=== PATIENT | female | born 1965 | race Caucasian/White ===

== ENCOUNTER 2019-03-27 18:30 | Emergency (ER) | payer MEDICARE, MEDICAID, SELFPAY ==
[2019-03-27 18:33] VITALS: BP 200/91; PULSE 68; RESP 18; TEMP 37; O2SAT 98; BMI 32.3
--- NOTE | 2019-03-27 18:43 | XR_ITS ---
WS: [id number] PORTABLE CHEST HISTORY: Chest pain COMPARISON: 05/22/2018 Prior median sternotomy. LEFT subclavian pacer. Lungs are clear and well expanded. No pleural effusion or pneumothorax. Cardiac size: Mildly enlarged cardiac silhouette. Mediastinum/Aorta: Normal mediastinum. No osseous abnormality seen. XR/XR chest 1V portable [id number] IMPRESSION: Prior cardiac pacer and median sternotomy. No pneumonia.
--- NOTE | 2019-03-27 18:45 | ED_ITS ---
Entered by Oanh Ramires, acting as scribe for Mar 27, 2019 18:30 HPI - Chest Pain General: Chief Complaint: Chest Pain Stated Complaint: cp Time Seen by Provider: 03/27/19 18:45 Source: patient and family Mode of arrival: ambulatory Limitations: no limitations History of Present Illness: HPI narrative: 53 yo female presents with chest discomfort, shortness of breath and high blood pressure. pt states this started today while at [employer] the pain is now resloved. pt states worsened with exertion, nothing makes this better. pt has a HX of 7 stents. pt states i just wanted to get checked out. 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) Timing of current episode: constant and now resolved Prior episodes: Yes Onset: during exertion (at [employer]) Pain location: substernal Pain radiation: none Severity: moderate Associated symptoms: Deny abdominal pain, fever(s), nausea or vomiting Risk Factors: Coronary artery disease risk factors: diabetes and hypertension Review of Systems Const: Denies: fever or chills Eyes: Denies: change in vision or blurry vision ENMT: Denies: painful swallowing or dental pain Card: Denies: edema or swelling of feet/ankles Resp: Denies: productive cough, non-productive cough or wheezing GI: Denies: abdominal pain, nausea, vomiting, rectal pain, blood in stool or black tarry stool : Denies: painful urination, urinary frequency, urinary urgency or blood in urine Musc: Denies: neck pain, back pain, redness or joint warmth Skin/Breast: Denies: rash, itching or redness Neuro: Denies: headache, dizziness, vertigo or confusion Psych: Denies: anxiety PFSH ED PFSH: Statuses (acute, chronic, etc) shown below reflect problem list status as previously entered and may not be historically accurate Family History (Updated 03/23/19 @ 10:02 by Nga De Leon LPN) Brother Stroke Diabetes Mother , 72 Diabetes Heart disease Father , 68 Diabetes Heart disease Grandmother Diabetes Grandfather Diabetes Other Cancer Social History Smoking and tobacco status: former smoker Physical Exam Const: GENERAL APPEARANCE: well developed ORIENTATION/CONSCIOUSNESS: Yes oriented to person, Yes oriented to place and Yes oriented to time HENMT: COMMON NORMALS: normocephalic, external ears normal and external nose normal HEAD & SCALP: normocephalic; no scalp tenderness FACE & SINUS: normal facial exam NOSE: external nose normal and no nasal discharge EXTERNAL EAR: Yes external ears normal Eye: COMMON NORMALS: PERRL, EOMs intact bilaterally and conjunctivae normal EYELID: eyelids normal CONJUNCTIVA: Yes conjunctivae normal PUPIL: Yes PERRL Neck/C-Spine: COMMON NORMALS: full ROM GENERAL: No tracheal deviation CERVICAL SPINE: Yes normal cervical lordosis and No cervical spine tenderness Chest: COMMONS NORMALS: inspection of chest normal CHEST: No tenderness Resp: COMMON NORMALS: clear to auscultation bilaterally EFFORT & INSPECTION: No tachypneic, No respiratory distress, No retractions, No uses accessory muscles and No tracheal deviation AUSCULTATION: clear to auscultation bilaterally, no rhonchi, no wheezes and lung sounds not diminished Cardio: COMMON NORMALS: regular rate and regular rhythm RATE: regular rate RHYTHM: regular rhythm HEART SOUNDS: no murmurs PERIPHERAL PULSES: radial pulses present GI: INSPECTION: No abdominal distension AUSCULTATION: No hyperactive bowel sounds and No hypoactive bowel sounds PALPATION: No guarding and No rigid PERCUSSION: no dullness to percussion and no tympanic to percussion Neuro: SENSORIUM/ORIENTATION: Yes oriented to person, Yes oriented to place and Yes oriented to time Psych: COMMON NORMALS: mental status grossly normal Skin: COMMON NORMALS: no rashes or lesions noted GENERAL SKIN EXAM: no rashes or lesions noted Course ED course: 53-year-old female presents with palpitations versus mild chest discomfort today. Is resolved on her arrival. She was quite hypertensive on arrival as well. Her blood pressure has been up today. Blood pressure improved with IV hydralazine and p.o. amlodipine. Her troponin did not change at 2 hours. There are no ST changes on her EKG, although her EKG is pacer driven. With resolution of her pain, without intervention, control of her blood pressure, negative troponins despite her discomfort most of the day, appears safe to send her home despite her history. She would like to go home. She will be given amlodipine for breakthrough hypertension. She knows to follow-up as an outpatient, and actually has an appointment with her PCP tomorrow afternoon. Vital Signs: Vital signs: Vital Signs Temperature 98.6 F 03/27/19 18:33 Pulse Rate 60 03/27/19 21:49 Respiratory Rate 15 03/27/19 21:49 Blood Pressure 153/68 03/27/19 21:49 Pulse Oximetry 97 03/27/19 21:49 MDM - Chest Pain Lab Data: Labs: Lab Results 03/27/19 03/27/19 03/27/19 Range/Units 18:50 18:50 18:50 WBC 5.5 (4.0-10.0) 10^3/ uL RBC 4.09 L (4.1-5.3) 10^6/u L Hgb 9.3 L (11.5-15.3) g/dL Hct 31.8 L (37.0-47.0) % MCV 77.8 L (81-99) fL MCH 22.7 L (28.0-34.0) pg MCHC 29.2 L (30.0-36.0) g/dL RDW 16.9 H (12.1-15.1) % Plt Count 108 L (130-400) 10^3/c mm MPV 12.2 H (7.4-10.4) fL Neut % (Auto) 69.4 % Lymph % (Auto) 19.1 % [facility] % (Auto) 9.7 % Eos % (Auto) 1.1 % Baso % (Auto) 0.5 % Neut # (Auto) 3.8 (1.8-7.7) 10^3/u L Lymph # (Auto) 1.1 (0.8-4.8) 10^3/u L [facility] # (Auto) 0.5 (0.2-0.9) 10^3/u L Eos # (Auto) 0.1 (0.0-0.8) 10^3/u L Baso # (Auto) 0.0 (0.0-0.1) 10^3/u L Nucleated RBC % (a uto) 0 % Nucleated RBCs # 0.0 /100WBC PT 14.20 H (10.5-13.3) SECO NDS INR 1.06 (0.8-1.2) APTT 28.7 (23.9-36.7) SECO NDS Sodium 137 (136-145) mmol/L Potassium 4.1 (3.5-5.1) mmol/L Chloride 98 (98-107) mmol/L Carbon Dioxide 28 (22-29) mmol/L Anion Gap 15.1 (5-19) BUN 16 (6-20) mg/dL Creatinine 1.1 H (0.5-0.9) mg/dL GFR Calculation 51.6 L (90-130) mL/min Glucose 283 H (74-109) mg/dL Calcium 9.1 (8.5-10.5) mg/dL Total Bilirubin 1.0 (0.15-1.2) mg/dL AST 46 H (0-32) U/L ALT 24 (0-33) U/L Alkaline Phosphata se 173 H (35-105) IU/L Troponin T Baselin e (0-10) ng/mL Troponin T 120 Min tetlin (0-10) ng/mL Delta Troponin T (0-10) ABS# NT-Pro-B Natriuret Pep (0-125) pg/mL Total Protein 7.6 (6.6-8.7) g/dL Albumin 3.6 (3.5-5.2) g/dL Globulin 4.0 (1.3-4.6) g/dL 03/27/19 03/27/19 03/27/19 Range/Units 18:50 18:50 20:40 WBC (4.0-10.0) 10^3/ uL RBC (4.1-5.3) 10^6/u L Hgb (11.5-15.3) g/dL Hct (37.0-47.0) % MCV (81-99) fL MCH (28.0-34.0) pg MCHC (30.0-36.0) g/dL RDW (12.1-15.1) % Plt Count (130-400) 10^3/c mm MPV (7.4-10.4) fL Neut % (Auto) % Lymph % (Auto) % [facility] % (Auto) % Eos % (Auto) % Baso % (Auto) % Neut # (Auto) (1.8-7.7) 10^3/u L Lymph # (Auto) (0.8-4.8) 10^3/u L [facility] # (Auto) (0.2-0.9) 10^3/u L Eos # (Auto) (0.0-0.8) 10^3/u L Baso # (Auto) (0.0-0.1) 10^3/u L Nucleated RBC % (a uto) % Nucleated RBCs # /100WBC PT (10.5-13.3) SECO NDS INR (0.8-1.2) APTT (23.9-36.7) SECO NDS Sodium (136-145) mmol/L Potassium (3.5-5.1) mmol/L Chloride (98-107) mmol/L Carbon Dioxide (22-29) mmol/L Anion Gap (5-19) BUN (6-20) mg/dL Creatinine (0.5-0.9) mg/dL GFR Calculation (90-130) mL/min Glucose (74-109) mg/dL Calcium (8.5-10.5) mg/dL Total Bilirubin (0.15-1.2) mg/dL AST (0-32) U/L ALT (0-33) U/L Alkaline Phosphata se (35-105) IU/L Troponin T Baselin e 27 H (0-10) ng/mL Troponin T 120 Min tetlin 28.12 H (0-10) ng/mL Delta Troponin T 1.12 (0-10) ABS# NT-Pro-B Natriuret Pep 268 H (0-125) pg/mL Total Protein (6.6-8.7) g/dL Albumin (3.5-5.2) g/dL Globulin (1.3-4.6) g/dL Discharge Plan Discharge Patient Disposition: Home, Self-Care Clinical Impression: Chest pain Qualifiers: Chest pain type: unspecified Qualified Code(s): R07.9 - Chest pain, unspecified Hypertension Qualifiers: Hypertension type: essential hypertension Qualified Code(s): I10 - Essential (primary) hypertension Condition: Stable Prescriptions: New amlodipine 5 mg tablet 5 mg PO DAILY Qty: 30 RF: 0 No Action isosorbide mononitrate 60 mg tablet extended release 24 hr 60 mg PO DAILY RF: 0 lovastatin 20 mg tablet 20 mg PO DAILY RF: 0 nadolol 40 mg tablet 40 mg PO DAILY RF: 0 nitroglycerin [Nitrostat] 0.4 mg tablet, sublingual 0.4 mg SUBLINGUAL DIRECTED RF: 0 potassium chloride 20 mEq tablet extended release 20 meq PO BID RF: 0 tizanidine 4 mg capsule 6 mg PO DAILY PRN (Reason: Spasms) RF: 0 pantoprazole 40 mg tablet,delayed release (DR/EC) 40 mg PO BID Qty: 180 RF: 3 morphine [MS Contin] 60 mg tablet extended release 60 mg PO Q12H 30 Days Qty: 60 RF: 0 Lasix 40 mg Tablet 40 mg PO DAILY RF: 0 Vitamin C 1,000 mg Tablet 500 mg PO DAILY RF: 0 Humalog KwikPen Insulin 100 unit/mL Insulin Pen See Rx Instructions .ROUTE .COMPLEX RF: 0 lactulose 10 gram/15 mL Solution See Rx Instructions .ROUTE .COMPLEX RF: 0 Lantus Solostar U-100 Insulin 100 unit/mL (3 mL) Insulin Pen 40 unit SUBCUT BID RF: 0 Discharge Orders: Discharge Order (Routine); Ordered 03/27/19 Ordered By: Everton Arias Referrals: Sohail Oliva MD [Primary Care Provider] - 4-7 days Discharge Diet: Usual diet Discharge Activity: Limit activity as instructed Patient Instructions: Chest Pain (ED), Hypertension (ED) Activity Restrictions/Additional Instructions: No strenuous activity until cleared by your physician. More testing as an outpatient may be needed. Return for return of chest pain or palpitations or other discomfort, shortness of breath, other concerning symptoms. You may use the prescription you were given if your blood pressure is high. If your blood pressure remains higher than 160 systolic (the top number), then take the medication. Discharge Date/Time: 03/27/19 21:50 Coding Level of Care Code ED Insurance Claims Assistant for Chg Fwd The documentation recorded by the Ike avalos Bridget Annette, accurately reflects the service I personally performed and the decisions made by Hugo smallwood Jeremy John, DO Mar 27, 2019 18:30
--- NOTE | 2019-03-27 18:45 | PC.NURSE ---
BP has been high all day, no chest pain now
[2019-03-27 18:56] LABS: Basophils % 0.5 %; Eosinophils # 0.1 10^3/uL (0.0-0.8); Eosinophils % 1.1 %; Hematocrit 31.8 % (37.0-47.0); Hemoglobin 9.3 g/dL (11.5-15.3); Lymphocytes # 1.1 10^3/uL (0.8-4.8); Lymphocytes % 19.1 %; Mean Corpuscular HGB Conc 29.2 g/dL (30.0-36.0); Mean Corpuscular Hemoglobin 22.7 pg (28.0-34.0); Mean Corpuscular Volume 77.8 fL (81-99); Mean Platelet Volume 12.2 fL (7.4-10.4); Monocytes # 0.5 10^3/uL (0.2-0.9); Monocytes % 9.7 %; Neutrophils # 3.8 10^3/uL (1.8-7.7); Neutrophils % 69.4 %; Nucleated Red Blood Cells % 0 %; Platelet Count 108 10^3/cmm (130-400); Red Blood Count 4.09 10^6/uL (4.1-5.3); Red Cell Distribution Width 16.9 % (12.1-15.1); White Blood Count 5.5 10^3/uL (4.0-10.0)
[2019-03-27 19:11] LABS: Alanine Aminotransferase 24 U/L (0-33); Albumin Level 3.6 g/dL (3.5-5.2); Alkaline Phosphatase 173 IU/L (35-105); Anion Gap 15.1 (5-19); Aspartate Amino Transferase 46 U/L (0-32); Blood Urea Nitrogen 16 mg/dL (6-20); Calcium 9.1 mg/dL (8.5-10.5); Carbon Dioxide 28 mmol/L (22-29); Chloride 98 mmol/L (98-107); Glomerular Filtration Rate 51.6 mL/min (90-130); Glucose 283 mg/dL (74-109); Potassium 4.1 mmol/L (3.5-5.1); Sodium 137 mmol/L (136-145); Total Protein 7.6 g/dL (6.6-8.7)
[2019-03-27 19:12] LABS: Troponin(5th) Baseline 27 ng/mL (0-10)
[2019-03-27 19:16] LABS: INR 1.06 (0.8-1.2); Partial Thromboplastin Time 28.7 SECONDS (23.9-36.7)
[2019-03-27] MEDS: amlodipine 5 mg Tablet 10 MG PO (19:21)
[2019-03-27 19:26] VITALS: BP 190/87; PULSE 61; RESP 12; O2SAT 97
[2019-03-27 19:28] LABS: NT Pro B Type Natriuretic Pept 268 pg/mL (0-125)
[2019-03-27] MEDS: hyDRALAzine 20 mg/mL INJ 1 mL IVP (19:28)
[2019-03-27 20:10] VITALS: BP 128/62; PULSE 60; RESP 15; O2SAT 98
--- NOTE | 2019-03-27 20:43 | ECG_ITS ---
Measurements Intervals [place] Rate: 60 P: 100 GA: 233 QRS: 52 QRSD: 98 T: 52 QT: 462 QTc: 462 ELECTRONIC ATRIAL PACEMAKER MODERATE ST DEPRESSION [0.05+ mV ST DEPRESSION] Compared to ECG 06/24/2018 15:27:58 Prolonged QT interval no longer present ST (T wave) deviation still present Electronically Signed On 03-28-2019 21:04:38 BRANCH SERVICE REPRESENTATIVE by Praneeth Joseph M.D. [id number]
[2019-03-27 21:09] LABS: Troponin 5 2HR 28.12 ng/mL (0-10); Troponin 5 2HR Delta 1.12 ABS# (0-10)
[2019-03-27 21:49] VITALS: BP 153/68; PULSE 60; RESP 15; O2SAT 97
== END 2019-03-27 21:50 | disposition home or self-care (01) ==
PROVIDERS: Emergency Provider Emergency Medicine; Family Provider Internal Medicine; PCP Internal Medicine
DX: R07.9 Chest pain, unspecified (principal); I10 Essential (primary) hypertension; E11.9 Type 2 diabetes mellitus without complications; Z82.49 Family history of ischemic heart disease and other diseases of the circulatory system; Z87.891 Personal history of nicotine dependence; Z79.4 Long term (current) use of insulin; Z95.5 Presence of coronary angioplasty implant and graft
CPT/HCPCS: 71045; 80053; 83880; 84484; 85025; 85610; 85730; 93005; 96374; 99283; 99284; J0360

== ENCOUNTER → 2019-03-28 16:16 | Outpatient (BNVA) | payer MEDICARE, MEDICAID, SELFPAY | PROVIDERS: Family Provider Internal Medicine; PCP Internal Medicine; Visit Provider Internal Medicine | DX: I85.11 Secondary esophageal varices with bleeding (principal); K75.81 Nonalcoholic steatohepatitis (NASH); D50.0 Iron deficiency anemia secondary to blood loss (chronic); I10 Essential (primary) hypertension | CPT/HCPCS: 82607; 82746 ==

== ENCOUNTER 2019-03-29 | Outpatient (CLI) | payer MEDICARE, MEDICAID, SELFPAY | END 2019-03-29 22:00 | disposition home or self-care (01) | LOC: RAD 10-10 13:08 | PROVIDERS: Family Provider Internal Medicine; PCP Internal Medicine; Visit Provider Internal Medicine Cardiovascular Disease | DX: D50.9 Iron deficiency anemia, unspecified (principal) | CPT/HCPCS: 82607; 83540; 83550 ==

== ENCOUNTER 2019-04-11 11:13 | Outpatient (RCR) | payer MEDICARE, MEDICAID, SELFPAY ==
[2019-04-04 11:11] VITALS: BMI 36.1
[2019-04-04 11:32] VITALS: BP 164/80; PULSE 93; RESP 18; TEMP 37.1; O2SAT 99
[2019-04-11 11:20] VITALS: BP 153/79; PULSE 92; RESP 18; TEMP 37.1; O2SAT 95
[2019-04-18 11:00] VITALS: BP 139/68; PULSE 87; RESP 20; TEMP 36.9; O2SAT 94
== END 2019-04-23 23:59 | disposition home or self-care (01) ==
LOC: GILAB 11:13
PROVIDERS: Family Provider Internal Medicine; PCP Internal Medicine; Visit Provider Internal Medicine
DX: D64.9 Anemia, unspecified (principal)
CPT/HCPCS: 96365; J1439

== ENCOUNTER → 2020-05-15 13:18 | Outpatient (BNVA) | payer MEDICARE, MEDICAID, SELFPAY | PROVIDERS: Family Provider Internal Medicine; PCP Internal Medicine; Visit Provider Internal Medicine | DX: D50.0 Iron deficiency anemia secondary to blood loss (chronic) (principal) | CPT/HCPCS: 83550 ==

== ENCOUNTER → 2020-06-05 15:22 | Outpatient (BNVA) | payer MEDICARE, MEDICAID, SELFPAY | PROVIDERS: Family Provider Internal Medicine; PCP Internal Medicine; Visit Provider Nurse Practitioner Family | DX: I10 Essential (primary) hypertension (principal); M79.605 Pain in left leg; R06.02 Shortness of breath; I25.10 Atherosclerotic heart disease of native coronary artery without angina pectoris; Z95.0 Presence of cardiac pacemaker; E11.9 Type 2 diabetes mellitus without complications | CPT/HCPCS: 80048; 83036; 83880; 85025 ==

== ENCOUNTER 2020-07-18 13:44 | Outpatient (CLI) | payer MEDICARE, MEDICAID, SELFPAY ==
--- NOTE | 2020-07-18 14:15 | USCV_ITS ---
Jacquelin Whiteside Age: 55 Gender: F : 1965 Exam Date: 07/18/2020 14:03 Ordering Phys: Brianne Hyman Technologist: Johanny Rose Exam Location: [facility] [place] Indication: SHORTNESS OF BREATH BP: 125 / 80 HR: 61 Rhythm: Sinus Technical Quality: Adequate MEASUREMENTS (Male / Female) Normal Values 2D ECHO LV Diastolic Diameter PLAX 5.0 cm 4.2 - 5.9 / 3.9 - 5.3 cm LV Systolic Diameter PLAX 3.1 cm IVS Diastolic Thickness 1.5 cm 0.6 - 1.0 / 0.6 - 0.9 cm IVS Systolic Thickness 1.9 cm LVPW Diastolic Thickness 1.1 cm 0.6 - 1.0 / 0.6 - 0.9 cm LVPW Systolic Thickness 1.6 cm LVOT Diameter 2.0 cm LV Ejection Fraction 2D Teich 69.1 % LV Ejection Fraction MOD 2C 56.8 % LV Ejection Fraction 2C AL 59.2 % LA Diameter 4.4 cm LA Width 4.2 cm LA Height 5.4 cm RA Width 3.4 cm RA Height 4.5 cm Aorta at Sinotubular Diameter 2.5 cm M-MODE LV Diastolic Diameter MM 5.0 cm 4.2 - 5.9 / 3.9 - 5.3 cm LV Systolic Diameter MM 3.2 cm LV Ejection Fraction MM Teich 65.7 % IVS Diastolic Thickness MM 1.4 cm 0.6 - 1.0 / 0.6 - 0.9 cm IVS Systolic Thickness MM 2.1 cm LVPW Diastolic Thickness MM 1.6 cm 0.6 - 1.0 / 0.6 - 0.9 cm LVPW Systolic Thickness MM 2.0 cm Aortic Annulus Diameter 3.2 cm LA Ao Ratio MM 1.5 MV E Point Septal Separation 0.8 cm DOPPLER AV Peak Velocity 105.0 cm/s LVOT Peak Velocity 88.0 cm/s AV Area Cont Eq vti 2.6 cm squared AV Area Cont Eq pk 2.7 cm squared MV Area PHT 4.2 cm squared Mitral E to A Ratio 1.2 MV E' Velocity 52.0 cm/s Mitral E to MV E' Ratio 10.9 Mitral E to LV E' Lateral Ratio 9.8 Mitral E to LV E' Septal Ratio 12.1 TR Peak Velocity 215.2 cm/s TR Peak Gradient 18.5 mmHg TV Peak E Velocity 58.0 cm/s Right Atrial Pressure 3.0 mmHg Pulmonary Artery Systolic Pressu 21.5 mmHg PV Peak Velocity 84.0 cm/s RV Acceleration Time 0.1 s RV Ejection Time 0.4 s RV AcT/ET 0.4 FINDINGS Left Ventricle Normal left ventricular cavity size. Normal left ventricular systolic function. No regional wall motion abnormalities. Left ventricular ejection fraction is estimated at 60 %. Right Ventricle The right ventricle is normal in size and function. Right Atrium The right atrium is normal in size. Left Atrium The left atrium is normal in size. Mitral Valve Thickened mitral valve. No mitral valve stenosis. Mild mitral valve regurgitation. Aortic Valve Structurally normal aortic valve without significant sclerosis or stenosis. There is no aortic regurgitation. Tricuspid Valve Mild tricuspid valve regurgitation. Pulmonic Valve Mild pulmonary valve regurgitation. Pericardium Normal pericardium without effusion. Aorta Normal ascending aorta dimension. CONCLUSIONS 1-Normal left ventricular cavity size. Normal left ventricular systolic function. No regional wall motion abnormalities. Left ventricular ejection fraction is estimated at 60 %. 2-Thickened mitral valve. No mitral valve stenosis. Mild mitral valve regurgitation. 3-Structurally normal aortic valve without significant sclerosis or stenosis. There is no aortic regurgitation. 4-Mild tricuspid valve regurgitation. 5-Mild pulmonary valve regurgitation. 6-There is no pericardial effusion. 7-Right atrial pressure is around 5 mm of mercury. 8-No significant change since the prior echocardiogram study of 06/25/2017. Humphrey Noland MD (Electronically Signed) Final Date: 28 July 2020 12:13 S
--- NOTE | 2020-07-18 14:45 | USCV_ITS ---
Jacquelin Whiteside Age: 55 Gender: F : 1965 Exam Date: 07/18/2020 14:42 Ordering Phys: Brianne Hyman Technologist: Johanny Rose [place] [facility] [place]ication: PAIN IN LEFT POPLITEAL AREA HISTORY: Lower extremity pain. PROCEDURES: Venous duplex imaging was performed in only the left lower extremity. The following venous structures were evaluated: common femoral vein, profunda vein, proximal portion of the greater saphenous vein, superficial femoral vein, and the popliteal vein. In addition, the posterior tibial and peroneal trunk were evaluated. FINDINGS: Normal 2-D Doppler and augmentation and compressibility throughout the lower extremity venous structures. Additional imaging through the proximal calf veins also reveals no thrombus. Limited evaluation of the greater saphenous vein is patent with no thrombus. CONCLUSIONS No DVT left lower extremity. Dr. Denise Ac DO (Electronically Signed) Final Date: 18 Jul 2020 15:48 S
== END 2020-07-18 13:45 | disposition home or self-care (01) ==
PROVIDERS: PCP Internal Medicine; Visit Provider Nurse Practitioner Family
DX: M79.605 Pain in left leg (principal)
CPT/HCPCS: 93306; 93971

== ENCOUNTER → 2020-10-02 16:05 | Outpatient (BNVA) | payer MEDICARE, MEDICAID, SELFPAY | PROVIDERS: PCP Internal Medicine; Visit Provider Nurse Practitioner Family | DX: R30.0 Dysuria (principal); N30.01 Acute cystitis with hematuria | CPT/HCPCS: 81003 ==

== ENCOUNTER → 2020-10-23 14:27 | Outpatient (BNVA) | payer MEDICAID, SELFPAY | PROVIDERS: PCP Internal Medicine; Visit Provider Internal Medicine | DX: R30.9 Painful micturition, unspecified (principal) | CPT/HCPCS: 87086 ==

== ENCOUNTER → 2020-11-01 16:10 | Outpatient (BNVA) | payer MEDICARE, MEDICAID, SELFPAY | PROVIDERS: PCP Internal Medicine; Visit Provider Nurse Practitioner Family | DX: R53.83 Other fatigue (principal); Z12.31 Encounter for screening mammogram for malignant neoplasm of breast; E11.9 Type 2 diabetes mellitus without complications | CPT/HCPCS: 80053; 82607; 82652; 82728; 83550; 84443 ==

== ENCOUNTER 2020-12-26 09:08 | Outpatient (CLI) | payer MEDICARE, MEDICAID, SELFPAY ==
[2020-12-26 10:11] VITALS: BMI 32.3
--- NOTE | 2020-12-26 10:17 | ECG_ITS ---
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 The perfusion scan will be documented separately. DATA: Baseline heart rate was 81 beats per minute. Baseline blood pressure was 139/75 millimeters of mercury. Target heart rate was 163. Maximum heart rate achieved was 67. which was 41 % of the predicted target heart rate. Maximum blood pressure was 148/75 millimeters of mercury. The reason for ending the test was completion of the protocol. The patient did not experience any symptoms. ELECTROCARDIOGRAM: BASELINE: Sinus rhythm. Normal axis. Otherwise, no ST-T changes suggestive of ischemia noted. No arrhythmia noted. EXERCISE: After Lexiscan injection, no ST-T changes suggestive of ischemic noted. No arrhythmia noted. CONCLUSION: Please note due to baseline abnormality of the EKG specificity and sensitivity of the EKG portion of LexiScan MIBI stress test will be low 1. EKG not suggestive of ischemia 2. Lexiscan injection unremarkable. 3. Perfusion scan will be documented separately. Electronically Signed On 01-09-2021 20:02:46 INTERACTIVE GRAPHIC DESIGNER by HUMPHREY NOLAND [id number]
--- NOTE | 2020-12-26 10:18 | NMCV_ITS ---
NM charlie perf SPECT r/s* [id number] Jacquelin Whiteside Age: 55 Gender: F : 1965 Exam Date: 12/26/2020 10:43 Ordering Phys: Humphrey Noland MD ([email or web address]) Technologist: VANESSA Palomares Exam Location: [facility] [place] Indications: CHEST PAIN STRESS TEST Please see separate stress test report in [facility] for full findings IMAGE PROTOCOL Rest/Stress 1 Lexiscan Day Radiopharmaceutical Dose (mCi) Administration Site Administered by Rest: Tc-99m 11.0 IV VANESSA Palomares Sestamibi Stress:Tc-99m 32.5 IV VANESSA Mares Sestamibi Rest: 26-Dec-2020 60 Discovery 630 Stress: 26-Dec-2020 30 Discovery 630 0.4mg Lexiscan. Images obtained in supine and prone position. SPECT RESULTS Technical Quality: Excellent Raw Data Analysis: Normal Image Corrections: No attenuation or motion correction applied Summed Stress Score: 0 Summed Rest Score: 0 Summed Difference Score: 0 PERFUSION FINDINGS SPECT images demonstrate homogeneous tracer distribution throughout the myocardium. FUNCTIONAL RESULTS (calculated via Gated SPECT) Stress Image LV EF (%): 65 Stress EDV (mL):104 TID: 0.82 Stress ESV (mL):36 Rest Image LV EF (%): 65 FUNCTIONAL FINDINGS: There is normal left ventricular systolic function. IMPRESSIONS Myocardial perfusion imaging is normal. EKG segment will be documented separately. Humphrey Noland MD (Electronically Signed) Final Date: 26 December 2020 19:19 S
[2020-12-26] MEDS: regadenoson 0.4 Mg/5 ml Syringe IVP (11:37)
[2020-12-26 11:51] VITALS: BP 129/84; PULSE 60
== END 2020-12-26 09:09 | disposition home or self-care (01) ==
LOC: CDL 09:13
PROVIDERS: PCP Internal Medicine; Visit Provider Internal Medicine Cardiovascular Disease
DX: R07.9 Chest pain, unspecified (principal); R06.02 Shortness of breath
CPT/HCPCS: 78452; 93017; A9500; J2785

== ENCOUNTER → 2021-01-02 11:08 | Outpatient (BNVA) | payer MEDICARE, MEDICAID, SELFPAY | PROVIDERS: PCP Internal Medicine; Visit Provider Nurse Practitioner Women's Health | DX: N89.8 Other specified noninflammatory disorders of vagina (principal) | CPT/HCPCS: 87070; 87205 ==

== ENCOUNTER → 2021-03-15 15:09 | Outpatient (BNVA) | payer MEDICARE, MEDICAID, SELFPAY | PROVIDERS: PCP Internal Medicine; Visit Provider Nurse Practitioner Women's Health | DX: N89.8 Other specified noninflammatory disorders of vagina (principal) | CPT/HCPCS: 87070; 87205 ==

== ENCOUNTER → 2021-04-24 16:15 | Outpatient (BNVA) | payer MEDICARE, MEDICAID, SELFPAY | PROVIDERS: PCP Internal Medicine; Visit Provider Internal Medicine | DX: D50.0 Iron deficiency anemia secondary to blood loss (chronic) (principal); E11.9 Type 2 diabetes mellitus without complications; R30.0 Dysuria; K75.81 Nonalcoholic steatohepatitis (NASH); I10 Essential (primary) hypertension; D50.9 Iron deficiency anemia, unspecified | CPT/HCPCS: 80053; 81003; 82607; 82746; 83036; 83550; 84443 ==

== ENCOUNTER → 2021-04-30 12:00 | Outpatient (BNVA) | payer MEDICARE, MEDICAID, SELFPAY | PROVIDERS: PCP Internal Medicine; Visit Provider Nurse Practitioner Women's Health | DX: N89.8 Other specified noninflammatory disorders of vagina (principal); R30.0 Dysuria | CPT/HCPCS: 84315; 87481; 87798 ==

== ENCOUNTER → 2021-05-10 10:47 | Outpatient (BNVA) | payer MEDICARE, MEDICAID, SELFPAY | PROVIDERS: PCP Internal Medicine; Visit Provider Internal Medicine Cardiovascular Disease | DX: Z95.0 Presence of cardiac pacemaker (principal) | CPT/HCPCS: 93280 ==

== ENCOUNTER → 2021-05-16 14:15 | Outpatient (BNVA) | payer MEDICARE, MEDICAID, SELFPAY | PROVIDERS: PCP Internal Medicine; Visit Provider Nurse Practitioner Women's Health | DX: N89.8 Other specified noninflammatory disorders of vagina (principal) | CPT/HCPCS: 87086 ==

== ENCOUNTER 2021-06-10 14:54 | Outpatient (CLI) | payer MEDICARE, MEDICAID, SELFPAY ==
--- NOTE | 2021-06-10 15:00 | XR_ITS ---
WS: [id number] DEXA (DUAL ENERGY X-RAY ABSORPTIOMETRY) Bone mineral density was performed using a [employer] machine. HISTORY: Z78.0 COMPARISON: None available. Lumbar spine BMD (L1-L4): 1.327 g/cm2 T score: 1.2 Z score: 1.1 Total hip BMD: Left: 1.108 g/cm2. T score: 0.8 Z score: 0.8 Right: 1.116 g/cm2. T score: 0.9 Z score: 0.8 10 year probability of a major osteoporotic fracture is 6.7%. XR/XR DEXA axial skeleton* [id number] IMPRESSION: NORMAL BONE MINERAL DENSITY based upon the WHO classification for females.
== END 2021-06-10 14:55 | disposition home or self-care (01) ==
PROVIDERS: PCP Internal Medicine; Visit Provider Internal Medicine
DX: Z78.0 Asymptomatic menopausal state (principal)
CPT/HCPCS: 77080

== ENCOUNTER → 2021-06-20 00:01 | Outpatient (BNVA) | payer MEDICARE, MEDICAID, SELFPAY | PROVIDERS: PCP Internal Medicine; Visit Provider Internal Medicine | DX: R10.2 Pelvic and perineal pain (principal); R30.0 Dysuria | CPT/HCPCS: 81003; 87086 ==

== ENCOUNTER → 2021-07-06 14:40 | Outpatient (BNVA) | payer MEDICARE, MEDICAID, SELFPAY | PROVIDERS: PCP Internal Medicine; Visit Provider Registered Nurse Neonatal Intensive Care | DX: N39.0 Urinary tract infection, site not specified (principal); R11.0 Nausea | CPT/HCPCS: 81000 ==

== ENCOUNTER → 2021-07-09 16:27 | Outpatient (BNVA) | payer MEDICARE, MEDICAID, SELFPAY | PROVIDERS: PCP Internal Medicine; Visit Provider Internal Medicine | DX: R42 Dizziness and giddiness (principal); R30.0 Dysuria | CPT/HCPCS: 80053; 81000; 85025 ==

== ENCOUNTER 2021-07-22 10:36 | Observation (INO) | payer MEDICARE, MEDICAID, SELFPAY ==
[2021-07-22] VITALS (11 sets, daily range): BP systolic 120–151; BP diastolic 50–82; PULSE 61–86; RESP 16–18; TEMP 36.3–36.8; O2SAT 93–98; BMI 32.3
--- NOTE | 2021-07-22 10:43 | XRR_ITS ---
PROCEDURE INFORMATION: Exam: XR Chest Exam date and time: 07/22/2021 10:51 AM Age: 56 years old Clinical indication: Cough and shortness of breath; Prior surgery; Surgery date: 1-6 months; Additional info: Cough, congestion TECHNIQUE: Imaging protocol: XR of the chest. Views: 1 view. COMPARISON: CR XR chest 1V portable [id number] 03/27/2019 6:48 PM FINDINGS: Tubes, catheters and devices: Two lead pacer device noted in the left chest wall. Lungs: Unremarkable. No consolidation. Pleural spaces: Unremarkable. No pleural effusion. No pneumothorax. Heart/Mediastinum: Similar mild cardiomegaly and pulmonary vascular congestion. Bones/joints: Sternotomy wires noted. Visualized osseous structures are intact. XR/XR chest 1V portable [id number] IMPRESSION: Stable exam, no acute findings.
--- NOTE | 2021-07-22 10:49 | ED_ITS ---
HPI - SOB/Dyspnea General: Chief Complaint: Shortness of Breath/Dyspnea Stated Complaint: Diff breathing, chest congestion, cough Time Seen by Provider: 07/22/21 10:42 Source: patient Mode of arrival: ambulatory Limitations: no limitations History of Present Illness: HPI Narrative: Patient is a 56-year-old female with a history of atrial fibrillation/CAD/pacemaker, CHF, DM, HTN, and hyperlipidemia who presents to ED today for evaluation of dyspnea. Patient states she has had symptoms for approximately a week now. She was seen by her PCP Dr. Oliva and diagnosed with pneumonia clinically. She states she was given IM antibiotics in their office and discharged home on doxycycline. Patient feels like she is not improving. She is not having a cough. She does not complain of chest pain. She is reporting shortness of breath at rest and worsens with lying flat in any form of exertion. She is not running fevers. Patient states she does have a history of CHF. She takes 40 mg of Lasix daily. She has not noticed any increased swelling to her lower extremities or obvious weight gain. She does not complain of PND. She states she has no history of COPD/asthma/emphysema. She is not a smoker. MD elicited complaint: shortness of breath Pertinent past history: congestive heart failure and other (CAD) Onset (ago): day(s) Timing: constant Exacerbating factors: lying flat and exertion Associated symptoms: Reports orthopnea; Deny abdominal pain, chest congestion, chest pain, dizziness, extremity pain, fever(s), hemoptysis, lightheadedness, nausea, palpitations, syncope or vomiting Treatment prior to arrival: other (antibiotics for presumed pneumonia ) Related Data: Home oxygen amount: none Review of Systems Const: Denies: fever(s), chills, body aches, fatigue or malaise Eyes: Denies: change in vision or blurry vision ENMT: Denies: throat pain, odynophagia, nasal discharge, nasal congestion or sinus pain Card: Reports: dyspnea on exertion and orthopnea; Denies: chest pain, palpitations, irregular heart rhythm, edema, swelling of feet/ankles, lightheadedness, syncope, pre-syncope, leg pain with exertion or acrocyanosis Resp: Reports: dyspnea and wheezing; Denies: productive cough, non-productive cough, stridor, pain on inspiration, change in phlegm color, hemoptysis or chest congestion GI: Denies: abdominal pain, nausea, vomiting or diarrhea : Denies: flank pain or dysuria Musc: Denies: neck pain, back pain, extremity pain or joint pain Skin/Breast: Denies: rash Neuro: Denies: headache(s), numbness in extremities, weakness in extremities, sensory changes or dizziness PFSH ED PFSH: Medical History Atrial fibrillation CAD (coronary artery disease) Carpal tunnel syndrome Diabetes mellitus Essential hypertension Hepatomegaly History of AK (myocardial infarction) (~2006) Hyperlipidemia Migraine Neuropathy No pertinent past medical history neghx: thyroid,dvt/pe PCP: Dr. Oliva Pacemaker (~2012) Splenomegaly Sporadic pituitary adenoma Surgical History S/P arterial stent x 3; approximately in 2012, 2013 - [facility] S/P brain surgery (~2005) Removal of brain tumor- benign; in the pituitary gland S/P CABG x 2 in 2006 S/P section performed in 1990, 1992 S/P hysterectomy (~1992) converted from C/Section to NAMAN,bilateral salpingectomy, probable ovaries remain. Most likely performed by Dr. Roper. Vulvar abscess (~05/01/15) I&D of left labia majora abscess; performed by [facility]. Family History Brother Stroke Diabetes Mother , 72 Diabetes Heart disease Hypertension Stroke Father , 68 Diabetes Heart disease Hypertension Stroke Grandmother Diabetes Maternal Denies family history of Colon cancer Ovarian cancer Hypercholesteremia Breast cancer Uterine cancer Thyroid disease Social History Smoking and tobacco status: former smoker Physical Exam Const: COMMON NORMALS: no acute distress, patient oriented x3, no limitations and alert GENERAL APPEARANCE: cooperative NUTRITIONAL APPEARANCE: overweight ORIENTATION/CONSCIOUSNESS: Yes awake, Yes oriented to person, Yes oriented to place and Yes oriented to time HENMT: COMMON NORMALS: normocephalic and atraumatic HEAD & SCALP: normal to inspection, normocephalic and atraumatic Eye: GENERAL EYE: appearance normal, both eyes and all related structures Neck/C-Spine: COMMON NORMALS: full ROM, no lymphadenopathy, supple and no JVD Chest: COMMONS NORMALS: normal inspection of the chest and normal palpation of entire chest wall Resp: COMMON NORMALS: normal respiratory effort and clear to auscultation bilaterally AUSCULTATION: clear to auscultation bilaterally Cardio: COMMON NORMALS: no JVD, regular rate and regular rhythm RATE: regular rate RHYTHM: regular rhythm GI: COMMON NORMALS: Normal to inspection, nondistended, normoactive bowel sounds present, Soft to palpation and non-tender PALPATION: Yes Soft to palpation : COMMON NORMALS: Yes no CVA tenderness BLADDER/KIDNEY EXAM: Yes no CVA tenderness Back/Pelvis: COMMON NORMALS: no CVA tenderness, thoracic and lumbar spine normal to inspection, no thoracic nor lumbar tenderness and thoraco-lumbar ROM normal Extremity: COMMON NORMALS: normal to inspection, full ROM, capillary refill normal, no joint enlargement, no clubbing, cyanosis or edema, no calf tenderness and no pedal edema GENERAL: Yes normal exam except as noted Neuro: KENDAL COMA SCALE: document GCS findings [place] coma scale eye opening: Spontaneous [place] coma scale verbal response: Orientated [place] coma scale motor response: Obey commands [place] coma scale total score: 15 COMMON NORMALS: patient oriented x3, moves all extremities, no focal motor deficits, no sensory deficits noted and gait normal SENSORIUM/ORIENTATION: Yes alert, Yes oriented to person, Yes oriented to place and Yes oriented to time Skin: COMMON NORMALS: no rashes or lesions noted GENERAL SKIN EXAM: no rashes or lesions noted Course Vital Signs: Vital signs: Vital Signs Temperature 97.3 F L 07/22/21 10:57 Pulse Rate 65 07/22/21 10:57 Respiratory Rate 16 07/22/21 10:57 Blood Pressure 120/50 07/22/21 10:57 Pulse Oximetry 95 07/22/21 10:57 MDM - SOB/Dyspnea Medical Decision Making Patient here for a main complaint of dyspnea. She states she is unable to walk across her home without becoming profoundly dyspneic. She is not having a cough, congestion, fevers. She does not have any chest pain or palpitations. Vital signs are stable. She is not requiring oxygen. Blood work is significant for acute kidney injury with a BUN/Cr of 72/2.0. Her GFR is 25.6. She has a D- dimer of over 6.0. Patient cannot undergo CTA imaging because of current kidney functions. VQ scan would be difficult as the tracer would have to come from [place] (difficulty compounded by the hol/). Patient's BNP is 872 which is a little higher than her baseline however clinically she does not appear fluid overloaded. Her CXR is stable. Baseline troponin is 82 with a nonsignificant delta. EKG shows ventricular paced rhythm. Again she is not having any chest pain. I spoke to Dr. Burch who recommended we admit patient for acute kidney injury and they can evaluate the need for PE rule out imaging. Spoke to Dr. Botello who is agreeable to admit patient. He recommended bilateral lower extremity venous US. Lab Data : 07/22/21 11:15 07/22/21 11:15 Labs/Radiology: Radiology Impressions Chest X-Ray 07/22/21 10:43 IMPRESSION: Stable exam, no acute findings. Venous Duplex 07/22/21 13:30 IMPRESSION: No evidence of deep vein thrombosis. Laboratory Results WBC 6.3 10^3/uL (4.0-10.0) 07/22/21 11:15 RBC 3.55 10^6/uL (4.1-5.3) L 07/22/21 11:15 Hgb 10.7 g/dL (11.5-15.3) L 07/22/21 11:15 Hct 34.0 % (37.0-47.0) L 07/22/21 11:15 MCV 95.8 fl (81-99) 07/22/21 11:15 MCH 30.1 pg (28.0-34.0) 07/22/21 11:15 MCHC 31.5 g/dL (30.0-36.0) 07/22/21 11:15 RDW 13.7 % (12.1-15.1) 07/22/21 11:15 Plt Count 133 10^3/cmm (130-400) 07/22/21 11:15 MPV 10.9 fL (7.4-10.4) H 07/22/21 11:15 Neut % (Auto) 67.6 % 07/22/21 11:15 Lymph % (Auto) 17.3 % 07/22/21 11:15 [place] % (Auto) 11.5 % 07/22/21 11:15 Eos % (Auto) 2.2 % 07/22/21 11:15 Baso % (Auto) 0.8 % 07/22/21 11:15 Neut # (Auto) 4.23 10^3/uL (1.8-7.7) 07/22/21 11:15 Lymph # (Auto) 1.1 10^3/uL (0.8-4.8) 07/22/21 11:15 [place] # (Auto) 0.7 10^3/uL (0.2-0.9) 07/22/21 11:15 Eos # (Auto) 0.1 10^3/uL (0.0-0.8) 07/22/21 11:15 Baso # (Auto) 0.1 10^3/uL (0.0-0.1) 07/22/21 11:15 Nucleated RBC % (auto) 0 % 07/22/21 11:15 Nucleated RBCs # 0.0 /100WBC 07/22/21 11:15 D-Dimer 6.08 ug/mIFEU (0-0.59) H 07/22/21 11:15 Sodium 136 mmol/L (136-145) 07/22/21 11:15 Potassium 5.0 mmol/L (3.5-5.1) 07/22/21 11:15 Chloride 103 mmol/L (98-107) 07/22/21 11:15 Carbon Dioxide 23 mmol/L (22-29) 07/22/21 11:15 Anion Gap 15.0 (5-19) 07/22/21 11:15 BUN 72 mg/dL (6-20) H 07/22/21 11:15 Creatinine 2.0 mg/dL (0.5-0.9) H 07/22/21 11:15 GFR Calculation 25.6 mL/min (90-130) L 07/22/21 11:15 Glucose 146 mg/dL (65-115) H 07/22/21 11:15 Calculated Osmolality 306 mOsm/kg (285-295) H 07/22/21 11:15 Calcium 8.9 mg/dL (8.5-10.5) 07/22/21 11:15 Total Bilirubin 1.6 mg/dL (0.15-1.2) H 07/22/21 11:15 AST 48 U/L (0-32) H 07/22/21 11:15 ALT 30 U/L (0-33) 07/22/21 11:15 Alkaline Phosphatase 167 IU/L (35-105) H 07/22/21 11:15 Troponin T Baseline 82 ng/L (0-10) H 07/22/21 11:15 Troponin T 120 Minute 82.98 ng/L (0-10) H 07/22/21 13:10 Delta Troponin T 0.98 ABS# (0-10) 07/22/21 13:10 NT-Pro-B Natriuret Pep 872 pg/mL (0-125) H 07/22/21 11:15 Total Protein 7.4 g/dL (6.6-8.7) 07/22/21 11:15 Albumin 3.8 g/dL (3.5-5.2) 07/22/21 11:15 Globulin 3.6 g/dL (1.3-4.6) 07/22/21 11:15 Discharge Plan Discharge Patient Disposition: Admitted As Inpatient Clinical Impression: Dyspnea, Elevated d-dimer, Acute kidney injury Condition: Stable Prescriptions: No Action nitroglycerin [Nitrostat] 0.4 mg tablet, sublingual 0.4 mg SUBLINGUAL DIRECTED PRN (Reason: Chest Pain) 0RF celecoxib [Celebrex] 200 mg capsule 200 mg PO BID Qty: 60 3RF pantoprazole 40 mg tablet,delayed release (DR/EC) 40 mg PO DAILY 0RF cetirizine 10 mg tablet 10 mg PO DAILY PRN (Reason: Allergy Symptoms) 0RF tizanidine 4 mg capsule 4 mg PO DAILY PRN (Reason: Spasms) 0RF furosemide [Lasix] 40 mg tablet 40 mg PO DAILY Qty: 90 3RF isosorbide mononitrate 60 mg tablet extended release 24 hr 60 mg PO DAILY Qty: 90 3RF potassium chloride 20 mEq tablet extended release 20 meq PO BID Qty: 180 3RF morphine 60 mg tablet extended release 60 mg PO Q12H 30 Days Qty: 60 0RF doxycycline hyclate 100 mg capsule 100 mg PO BID Qty: 10 0RF (DME) lancing device with lancets Kit See Rx Instructions .ROUTE .MEDSUPPLY Qty: 1 0RF Rx Instructions: As directed (DME) Blood Glucose Test Strip See Rx Instructions .ROUTE .MEDSUPPLY Qty: 100 12RF Rx Instructions: test 4 times daily (DME) lancets [BD Ultra Fine Lancets] 33 gauge misc See Rx Instructions .ROUTE .MEDSUPPLY Qty: 100 12RF Rx Instructions: test 4 times daily losartan 100 mg tablet 100 mg PO DAILY Qty: 90 3RF Rx Instructions: 340b (DME) Blood Glucose Test Strip See Rx Instructions .ROUTE .MEDSUPPLY Qty: 100 6RF Rx Instructions: TEST UP TO 4 TIMES A DAY (DME) blood-glucose meter Kit See Rx Instructions .Route Qty: 1 11RF Rx Instructions: wanda 14 with sensors and patches insulin lispro 100 unit/mL insulin pen See Rx Instructions .ROUTE .COMPLEX Qty: 45 3RF Dose Instruction: INJECT USING SLIDING SCALE THREE TIMES DAILY, MAX OF 51 UNITS PER DOSE MAX OF 153 UNITS PER DAY Rx Instructions: INJECT USING SLIDING SCALE THREE TIMES DAILY, MAX OF 51 UNITS PER DOSE MAX OF 153 UNITS PER DAY nadolol 40 mg tablet 40 mg PO DAILY Qty: 45 3RF lidocaine-prilocaine 2.5-2.5 % cream 1 applic topical .3-4 times daily Qty: 240 3RF Rx Instructions: melox 0.09% lamotr2.5% in lido (DME) pen needle, diabetic [BD Ultra-Fine Short Pen Needle] 31 gauge x 5/16 needle See Rx Instructions .ROUTE .MEDSUPPLY Qty: 150 3RF Rx Instructions: test 5 times daily peg 3350-electrolytes [Golytely] 236-22.74-6.74 -5.86 gram recon soln 240 ml PO Q10M Qty: 4000 0RF Rx Instructions: until fecal effluent is clear Lantus Solostar U-100 Insulin 100 unit/mL (3 mL) insulin pen 40 unit SUBCUT BID Qty: 15 5RF Referrals: Sohail Oliva MD [Primary Care Provider] - Coding Level of Care Code ED Thread Twister for Macielg Fwd Exam Comprehensive
[2021-07-22 11:22] LABS: Basophils # 0.1 10^3/uL (0.0-0.1); Basophils % 0.8 %; Eosinophils # 0.1 10^3/uL (0.0-0.8); Eosinophils % 2.2 %; Hemoglobin 10.7 g/dL (11.5-15.3); Lymphocytes # 1.1 10^3/uL (0.8-4.8); Lymphocytes % 17.3 %; Mean Corpuscular HGB Conc 31.5 g/dL (30.0-36.0); Mean Corpuscular Hemoglobin 30.1 pg (28.0-34.0); Mean Corpuscular Volume 95.8 fl (81-99); Mean Platelet Volume 10.9 fL (7.4-10.4); Monocytes # 0.7 10^3/uL (0.2-0.9); Monocytes % 11.5 %; Neutrophils # 4.23 10^3/uL (1.8-7.7); Neutrophils % 67.6 %; Nucleated Red Blood Cells % 0 %; Platelet Count 133 10^3/cmm (130-400); Red Blood Count 3.55 10^6/uL (4.1-5.3); Red Cell Distribution Width 13.7 % (12.1-15.1); White Blood Count 6.3 10^3/uL (4.0-10.0)
[2021-07-22 11:44] LABS: D Dimer 6.08 ug/mIFEU (0-0.59)
[2021-07-22 11:50] LABS: Alanine Aminotransferase 30 U/L (0-33); Albumin Level 3.8 g/dL (3.5-5.2); Alkaline Phosphatase 167 IU/L (35-105); Aspartate Amino Transferase 48 U/L (0-32); Blood Urea Nitrogen 72 mg/dL (6-20); Calcium 8.9 mg/dL (8.5-10.5); Carbon Dioxide 23 mmol/L (22-29); Chloride 103 mmol/L (98-107); Globulin 3.6 g/dL (1.3-4.6); Glomerular Filtration Rate 25.6 mL/min (90-130); Glucose 146 mg/dL (65-115); NT Pro B Type Natriuretic Pept 872 pg/mL (0-125); Osmolality Calculated 306 mOsm/kg (285-295); Sodium 136 mmol/L (136-145); Total Bilirubin 1.6 mg/dL (0.15-1.2); Total Protein 7.4 g/dL (6.6-8.7)
--- NOTE | 2021-07-22 12:39 | ECG_ITS ---
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 Measurements Intervals [place] Rate: 65 P: IN: QRS: -61 QRSD: 194 T: 99 QT: 500 QTc: 521 Interpretive Statements ELECTRONIC VENTRICULAR PACEMAKER Compared to ECG 03/27/2019 20:22:55 Atrial-paced complex(es) or rhythm no longer present ST (T wave) deviation no longer present Electronically Signed On 07-22-2021 19:42:11 CDT by Juanjo Rico M.D. [id number]
--- NOTE | 2021-07-22 12:42 | PC.NURSE ---
Ambulated approx 150ft, RA sats 93% while ambulating
[2021-07-22] MEDS: sodium chloride 0.9% 1,000 ML 100 ML IV (13:03)
[2021-07-22 13:11] LABS: Troponin(5th) Baseline 82 ng/L (0-10)
--- NOTE | 2021-07-22 13:30 | USR_ITS ---
PROCEDURE INFORMATION: Exam: US Duplex Lower Extremity Veins, Bilateral Exam date and time: 07/22/2021 1:43 PM Age: 56 years old Clinical indication: Abnormal findings; Abnormal lab test; Elevated d-dimer; Additional info: Elevated d-dimer; Dyspnea TECHNIQUE: Imaging protocol: Real-time Duplex ultrasound of the bilateral extremities with 2-D morrison scale, color Doppler flow and spectral waveform analysis with image documentation. Complete exam focused on the bilateral lower extremity veins. COMPARISON: US SoftTissue/Extrem Lmt [id number] 10/09/2017 3:29 PM FINDINGS: Right deep veins: Unremarkable. The common femoral, femoral, proximal profunda femoral and popliteal veins are patent without thrombus. Normal Doppler waveforms. Normal compressibility and/or augmentation response. Right superficial veins: Saphenofemoral junction is patent without thrombus. Left deep veins: Unremarkable. The common femoral, femoral, proximal profunda femoral and popliteal veins are patent without thrombus. Normal Doppler waveforms. Normal compressibility and/or augmentation response. Left superficial veins: Saphenofemoral junction is patent without thrombus. Soft tissues: Unremarkable. US/[place] [id number] IMPRESSION: No evidence of deep vein thrombosis.
[2021-07-22 13:34] LABS: Troponin 5 2HR 82.98 ng/L (0-10)
[2021-07-22 13:38] LABS: Troponin 5 2HR Delta 0.98 ABS# (0-10)
--- NOTE | 2021-07-22 14:39 | ECG_ITS ---
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 Measurements Intervals [place] Rate: 65 P: FL: QRS: -25 QRSD: 187 T: 54 QT: 482 QTc: 502 Interpretive Statements ELECTRONIC VENTRICULAR PACEMAKER Compared to ECG 07/22/2021 12:47:24 ST (T wave) deviation now present Myocardial infarct finding now present Electronically Signed On 07-22-2021 19:43:47 CDT by Juanjo Rico M.D. [id number]
[2021-07-22 15:40] LABS: Magnesium 2.5 mg/dL (1.7-2.3)
--- NOTE | 2021-07-22 15:40 | CTR_ITS ---
PROCEDURE INFORMATION: Exam: CT Chest Without Contrast; Diagnostic Exam date and time: 07/22/2021 3:57 PM Age: 56 years old Clinical indication: Shortness of breath; Prior surgery; Surgery date: 6+ months; Surgery type: Open heart/ pacemaker/ stents/ clips; Additional info: SOB, chf TECHNIQUE: Imaging protocol: Diagnostic computed tomography of the chest without contrast. Radiation optimization: All CT scans at this facility use at least one of these dose optimization techniques: automated exposure control; mA and/or kV adjustment per patient size (includes targeted exams where dose is matched to clinical indication); or iterative reconstruction. COMPARISON: CTA Chest w Abd/Pel w* 05/22/2018 1:48 PM RADIATION DOSE METRICS: Total DLP (mGy-cm): 1089.69 FINDINGS: Lungs: Scattered nodular ground-glass opacities throughout the right lung suspicious for multifocal pneumonia. Calcified granuloma noted in the left lung base. Pleural spaces: Unremarkable. No pneumothorax. No pleural effusion. Heart: Coronary artery calcifications/stents noted. Mild cardiomegaly. No pericardial effusion. Lymph nodes: Unremarkable. No enlarged lymph nodes. Vasculature: Unremarkable. No aortic aneurysm. Liver: Nodular liver morphology. Bones/joints: Sternotomy wires noted. No acute fracture. Soft tissues: 2 lead pacer device noted in the left chest wall. CT/CT chest wo con [id number] IMPRESSION: 1. Nodular ground-glass opacities throughout the right lung suspicious for multifocal pneumonia. Radiographic follow-up is recommended to ensure resolution. 2. Nodular liver morphology suggestive of underlying liver dysfunction/cirrhosis.
--- NOTE | 2021-07-22 15:54 | USCV_ITS ---
WhitesideLorenia Age: 56 Gender: F : 1965 Exam Date: 07/22/2021 16:39 Ordering Phys: Cooper Saleem MD Technologist: Heladio Golden Exam Location: [facility] [place] Indication: Shortness of breath BP: 160 / 70 HR: 47 Rhythm: Other Technical Quality: Adequate MEASUREMENTS (Male / Female) Normal Values 2D ECHO LV Diastolic Diameter PLAX 4.4 cm 4.2 - 5.9 / 3.9 - 5.3 cm LV Systolic Diameter PLAX 2.9 cm IVS Diastolic Thickness 1.3 cm 0.6 - 1.0 / 0.6 - 0.9 cm IVS Systolic Thickness 1.5 cm LVPW Diastolic Thickness 1.3 cm 0.6 - 1.0 / 0.6 - 0.9 cm LVPW Systolic Thickness 1.7 cm LVOT Diameter 2.0 cm LV Ejection Fraction 2D Teich 63.3 % LV Ejection Fraction MOD 2C 52.8 % LV Ejection Fraction 2C AL 55.3 % LA Diameter 4.4 cm LA Width 3.6 cm LA Height 5.3 cm RA Width 3.5 cm RA Height 5.1 cm Aorta at Sinotubular Diameter 2.9 cm IVC Diameter 2.6 cm M-MODE Aortic Annulus Diameter 2.6 cm LA Ao Ratio MM 1.7 MV E Point Septal Separation 0.8 cm DOPPLER AV Peak Velocity 111.3 cm/s LVOT Peak Velocity 72.0 cm/s AV Area Cont Eq vti 2.1 cm squared AV Area Cont Eq pk 2.1 cm squared MV Peak Velocity 139.0 cm/s MV E' Velocity 15.0 cm/s TR Peak Velocity 301.6 cm/s TR Peak Gradient 36.4 mmHg TR Mean Velocity 218.3 cm/s TR Mean Gradient 21.6 mmHg TR Velocity Time Integral 98.4 cm Right Atrial Pressure 8.0 mmHg Pulmonary Artery Systolic Pressu 44.4 mmHg RV Acceleration Time 0.1 s RV Ejection Time 0.3 s RV AcT/ET 0.2 FINDINGS Left Ventricle Normal left ventricular size. LV systolic function is normal with EF of 55-60%. Septal motion is consistent with conduction abnormality. Diastolic function is indeterminate because of paced rhythm. Right Ventricle The right ventricle is normal in size. Mildly reduced RV function Right Atrium The right atrium is normal in size. Left Atrium The left atrium is normal in size. Mitral Valve Structurally normal mitral valve without significant stenosis or prolapse. There is moderate mitral regurgitation. Aortic Valve Structurally normal aortic valve without significant sclerosis or stenosis. There is trace aortic regurgitation. Tricuspid Valve Structurally normal tricuspid valve without significant stenosis. Mild tricuspid regurgitation. RVSP is 40 to 45 mmHg. This is consistent with mild pulmonary hypertension. Pulmonic Valve There is mild pulmonic regurgitation. Pericardium Normal pericardium without effusion. Aorta Normal ascending aorta dimension. IVC CONCLUSIONS LV systolic function is normal with EF of 55 to 60%. Mild septal motion is consistent with conduction abnormality. Diastolic function is indeterminate because of paced rhythm. Mildly reduced RV function. Moderate mitral regurgitation. Trace aortic regurgitation. Mild tricuspid regurgitation. Mild pulmonic regurgitation. Mild pulmonary hypertension Compared to prior echocardiogram from 07/13/2020, patient's mitral regurgitation has progressed and is moderate now. Mild pulmonary hypertension is also seen Juanjo Rico MD (Electronically Signed) Final Date: 23 Jul 2021 10:11 S
--- NOTE | 2021-07-22 15:57 | P.HP_ITS ---
Providers/Chief Complaint Admitting Physician: Cooper Saleem MD Primary Care Provider: Sohail Oliva MD Chief Complaint: Diff breathing, chest congestion, cough History of Present Illness Jacquelin Whiteside is a 56 year old female with past medical history of CAD, post CABG, pacemaker implantation for significant bradycardia, atrial fibrillation on full dose aspirin for anticoagulation due to history of esophageal varices, heart failure with preserved ejection fraction, type 2 diabetes mellitus, CKD with baseline creatinine of 1.1-1.3. On review of chart it seems patient has been having health issues going on for last 1 month. She feels tired a GI bug which caused her to have nausea vomiting and diarrhea after which she had dizziness. For last 1 week she has been having difficulty in breathing getting worse on exertion and on laying flat. Not associated with fever, expectoration, chest pain. Still complaining of dizziness. She was given IM ceftriaxone 1 dose followed by a course of doxycycline with last dose today. As patient was not improving so she came to the ER today. She denies of having any runny nose, headache, sick contacts, fever, recent travels, being sedentary for long hours. In the ER, patient was found to have a heart of 61, blood pressure 136/60, saturating 93% on room air but was found to be dyspneic on minimal ambulation so hospitalist team was consulted for possible admission. ED course: Patient was given IV fluids and normal saline 100 cc/h, blood work was done which showed a white count of 6.3, hemoglobin of 10.7, D-dimer of 6.08, sodium 136, BUN of 32, creatinine of 2, bilirubin of 1.6, AST/ALT 48/30, alkaline phosphatase of 167, baseline troponin of 82 with a delta of 0.9 in 2 hours, proBNP of 872. Chest x-ray negative for any acute normality. Review of Systems General: Reports: 10 or more systems reviewed and unremarkable except in HPI and below Const: Denies: fever(s), chills, body aches, change in appetite, change in weight, malaise, night sweats, diaphoresis, change in sleep pattern, daytime sleepiness or snoring Eyes: Denies: change in vision, blurry vision, photophobia, eye discomfort or eye discharge ENMT: Denies: throat pain, enlarged tonsils, hoarseness, mouth pain, oral sores, dry mouth, tinnitus, nasal congestion or post nasal drip Card: Denies: chest pain, palpitations, irregular heart rhythm, edema, swelling of feet/ankles, lightheadedness, syncope, pre-syncope, dyspnea on exertion, orthopnea, leg pain with exertion or acrocyanosis Resp: Denies: dyspnea, productive cough, non-productive cough, wheezing, stridor, pain on inspiration, change in phlegm color, hemoptysis or chest congestion GI: Denies: abdominal pain, nausea, vomiting, hematemesis, coffee ground emesis, dysphagia, heartburn, diarrhea, constipation, bloating, GI cramping, change in bowel habits, pain on defecation, hematochezia or melena : Denies: flank pain, dysuria, urinary frequency, urinary urgency, urinary hesitancy, nocturia or hematuria Musc: Denies: neck pain, back pain, extremity pain, joint pain, joint swelling, joint redness, joint stiffness or limited range of motion Neuro: Denies: headache(s), numbness in extremities, weakness in extremities, sensory changes, lack of coordination, difficulty walking, frequent falls, dizziness, vertigo, confusion, Slurred speech present, difficulty communicating thoughts or seizure-like activity Psych: Denies: anxiety, depression, mood swings, panic attacks, hopelessness or irritability Endo: Denies: polyuria, polydipsia, tired all the time, cold intolerance, excessive sweating, flushing or heat intolerance Naveen/Lymph: Denies: easy bruising or easy bleeding All/Imm: Denies: tongue swelling, facial swelling or acute wheezing Medications/Allergies Home Medications Medication Instructions Recorded Confirmed Last Taken Type nitroglycerin 0.4 mg sublingual 0.4 mg SUBLINGUAL DIRECTED PRN 03/23/19 07/22/21 Unknown History tablet (Nitrostat) tab lancing device with lancets kit #1 ea 03/14/20 07/22/21 Unknown Rx blood sugar diagnostic (Blood #100 ea 05/15/20 07/22/21 Unknown Rx Glucose Test) lancets 33 gauge (BD Ultra Fine #100 ea 05/15/20 07/22/21 Unknown Rx Lancets) losartan 100 mg tablet 100 mg PO DAILY #90 tab 07/09/20 07/22/21 07/22/21 Rx cetirizine 10 mg tablet 10 mg PO DAILY PRN tab 10/23/20 07/22/21 Unknown History pantoprazole 40 mg tablet,delayed 40 mg PO DAILY tab 10/23/20 07/22/21 Unknown History release blood sugar diagnostic (Blood #100 each 11/05/20 07/22/21 Unknown Rx Glucose Test) blood-glucose meter #1 ea 11/05/20 07/22/21 Unknown Rx insulin lispro 100 unit/mL See Rx Instructions .ROUTE 12/03/20 07/22/21 Unknown Rx subcutaneous pen .COMPLEX #45 ml furosemide 40 mg tablet (Lasix) 40 mg PO DAILY #90 tab 03/13/21 07/22/21 Unknown Rx isosorbide mononitrate 60 mg 60 mg PO DAILY #90 tab 03/13/21 07/22/21 07/22/21 Rx tablet,extended release 24 hr potassium chloride 20 mEq 20 meq PO BID #180 tab 03/13/21 07/22/21 07/22/21 Rx tablet,extended release tizanidine 4 mg capsule 4 mg PO DAILY PRN cap 03/13/21 07/22/21 Unknown History nadolol 40 mg tablet 40 mg PO DAILY #45 tab 04/01/21 07/22/21 07/22/21 Rx lidocaine-prilocaine 2.5 %-2.5 % 1 applic TOPICAL .3-4 times daily 04/30/21 07/22/21 07/22/21 Rx topical cream #240 g celecoxib 200 mg capsule (Celebrex) 200 mg PO BID #60 cap 05/01/21 07/22/21 07/22/21 Rx pen needle, diabetic 31 gauge x #150 each 05/15/21 07/22/21 Unknown Rx 5/16 (BD Ultra-Fine Short Pen Needle) peg 3350-electrolytes 236 240 ml PO Q10M #4000 ml 06/03/21 07/22/21 Unknown Rx gram-22.74 gram-6.74 gram-5.86 gram solution (Golytely) insulin glargine 100 unit/mL (3 40 unit (0.4 mL) SUBCUT BID #15 ml 06/11/21 07/22/21 Unknown Rx mL) subcutaneous pen (Lantus Solostar U-100 Insulin) morphine 60 mg tablet,extended 60 mg PO Q12H 30 Days #60 tab 07/03/21 07/22/21 07/22/21 Rx release doxycycline hyclate 100 mg capsule 100 mg PO BID #10 cap 07/17/21 07/22/21 07/22/21 Rx Allergies Allergy/AdvReac Type Severity Reaction Status Date / Time insulin degludec Allergy ALGY-Difficulty Verified 07/22/21 13:58 [From Tresiba FlexTouch Breathing U-100] levofloxacin Allergy SWELLING Verified 07/22/21 13:58 promethazine Allergy confusion Verified 07/22/21 13:58 duloxetine AdvReac ADR-Swelling Verified 07/22/21 13:58 of the Eye PFSH Acute PFSH: Medical History Atrial fibrillation CAD (coronary artery disease) Carpal tunnel syndrome Diabetes mellitus Essential hypertension Hepatomegaly History of DC (myocardial infarction) (~2006) Hyperlipidemia Migraine Neuropathy No pertinent past medical history neghx: thyroid,dvt/pe PCP: Dr. Oliva Pacemaker (~2012) Splenomegaly Sporadic pituitary adenoma Surgical History S/P arterial stent x 3; approximately in 2012, 2013 - [facility] S/P brain surgery (~2005) Removal of brain tumor- benign; in the pituitary gland S/P CABG x 2 in 2006 S/P section performed in 1990, 1992 S/P hysterectomy (~1992) converted from C/Section to NAMAN,bilateral salpingectomy, probable ovaries remain. Most likely performed by Dr. Roper. Vulvar abscess (~05/01/15) I&D of left labia majora abscess; performed by [facility]. Family History Brother Stroke Diabetes Mother , 72 Diabetes Heart disease Hypertension Stroke Father , 68 Diabetes Heart disease Hypertension Stroke Grandmother Diabetes Maternal Denies family history of Colon cancer Ovarian cancer Hypercholesteremia Breast cancer Uterine cancer Thyroid disease Social History (Updated 07/22/21 @ 16:07 by Cooper Saleem MD) Smoking and tobacco status: former smoker Alcohol intake: never Substance/Drug Use: never Caregiver/support person: Yes Lives independently: Yes Household members: spouse Housing: House Marital status: Vitals/I&O/Wt Last Vital Signs Temp 97.3 F L 07/22/21 10:57 Pulse 61 07/22/21 15:53 Resp 18 07/22/21 15:53 BP 136/68 07/22/21 15:53 Pulse Ox 93 07/22/21 15:53 07/22/21 07/22/21 07/22/21 06:59 14:59 22:59 Intake Total 281.667 / 281.667 Balance 281.667 / 281.667 Weight last 48 hrs Weight 90.718 kg Physical Exam Narrative: General: No acute distress, AO x3, anxious HEENT: PERRLA, pupils bilaterally equal and reactive Chest: Normal vesicular breath sounds, occasional rhonchi present in bilateral lower zone, equal good air entry bilaterally CVS: S1-S2 regular, no murmurs, no tachycardia, no gallops, no rubs Abdomen: Soft, nontender, no organomegaly, bowel sounds present Neuro: No focal deficits, no facial deformity, AO x3, power 5/5 in all limbs Data : 07/22/21 11:15 07/22/21 11:15 A&P Assessment and plan (1) Dyspnea: Status: Acute (2) Elevated d-dimer: Status: Acute (3) (HFpEF) heart failure with preserved ejection fraction: Status: Acute (4) Acute kidney injury: Status: Acute (5) CAD (coronary artery disease): Status: Acute Qualifiers: Coronary Disease-Associated Artery/Lesion type: [place] artery [place] vs. transplanted heart: [place] heart Associated angina: without angina Qualified Code(s): I25.10 - Atherosclerotic heart disease of [place] coronary artery without angina pectoris (6) Atrial fibrillation: Status: Acute Qualifiers: Atrial fibrillation type: paroxysmal Qualified Code(s): I48.0 - Paroxysmal atrial fibrillation (7) Pacemaker: Status: Acute (8) Essential hypertension: Status: Acute (9) Diabetes mellitus: Status: Acute Plan Dyspnea/shortness of breath: Pneumonia ruled out with chest imaging negative for infiltrate. Could be secondary to pulm embolism versus acute on chronic diastolic heart failure. With elevated D-dimer cannot rule out pulmonary embolism. Unfortunately cannot do CTA given DAMARIS on CKD. Check lower limb Dopplers to rule out DVT. Echocardiogram to rule out heart failure regional motion abnormality. Given history of esophageal varices in the past for now hold off on full dose anticoagulation. Keep oxygen saturation over 88%. History of heart failure with preserved ejection fraction: Last echocardiogram from June 2020 shows an EF of 60%, no regional motion abnormality, mild MR. Repeat hepatic echocardiogram as above. Hold off on Lasix for now given DAMARIS. Patient has finished a course of doxycycline. No infiltrate on chest x-ray. Check procalcitonin, sputum culture, urine Legionella, bacterial antigen, flu and COVID swab. Start on DuoNeb every 6 hour, budesonide twice daily. Check CT chest without contrast to confirm if no consolidation, rule out CHF. Acute kidney injury: Baseline creatinine 1.1-1.3. Medical reconciliation done for nephrotoxic drugs. Hold off on Lasix, losartan for now. Monitor BMP daily for now. Gentle IV hydration with normal saline at 75 cc/h. Monitor for fluid overload. Strict input output charting. Atrial fibrillation: Continue with home dose of nadolol. Full dose aspirin for anticoagulation. Hypertension: Goal blood pressure less than 140/90 mmHg. Continue home antihypertensives except losartan. Type 2 diabetes mellitus: Continue home dose of insulin. Check A1c. Dizziness: Check orthostatics. Full code. Cardiac carb consistent diet. Protonix for PUD prophylaxis. Heparin 5000 every 12 hourly. 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 transplanted heart: [place] heart Associated angina: without angina Pacemaker Z95.0 Essential hypertension I10 Diabetes mellitus E11.9 (HFpEF) heart failure with preserved ejection fraction I50.30
[2021-07-22 16:45] LABS: Add Urine Microscopic? YES; Bilirubin Urine Neg (Negative); Blood Urine Neg (Negative); Glucose Urine UA Norm (Normal); Ketones Urine Negative (Negative); Leukocyte Esterase Urine Negative (Negative); Nitrate Urine Negative (Negative); Protein Urine 1+ (Negative); Specific Gravity, Urine 1.015 (1.005-1.030); Urine Appearance Clear (CLEAR); Urine Color Yellow (Yellow); Urobilinogen Urine Norm (Negative); pH Urine 5 (5-7)
[2021-07-22 16:46] LABS: Add Urine Culture? No; Bacteria Urine 1+ /hpf; Hyaline Casts Urine 0-4 /lpf; WBC Urine 0-4 /hpf (0-5)
[2021-07-22 17:01] LABS: Potassium, Radom Urine 23 mmol/L; Urine Creatinine 99 mg/dL (28-217); Urine Random Chloride 67 mmol/L; Urine Random Sodium 65 mmol/L
[2021-07-22 17:05] LABS: Influenza A by IFA Negative (Negative); Influenza B by IFA Negative (Negative)
[2021-07-22 17:12] LABS: Troponin 5 6HR 75.75 ng/L (0-10)
[2021-07-22 17:19] LABS: Procalcitonin 0.15 ng/mL (0-0.5); Thyroid Stimulating Hormone 1.51 uIU/mL (0.27-4.20)
[2021-07-22] MEDS: ferrous gluconate 324 mg Tablet PO (17:30)
--- NOTE | 2021-07-22 17:50 | PC.NURSE ---
Patient refused Heparin at this time states, I want to wait and see if I have a blood clot first.
[2021-07-22 17:51] LABS: Iron 71 ug/dL (37-145); Percent Saturation 20.1 % (20-50); Total Iron Binding Capacity 352 mcg/dl; Unsaturated Iron Binding 281 ug/dL (112-347)
[2021-07-22 18:26] LABS: Adenovirus Not Detected (NOT DETECT); Chlamydia Pneumoniae Not Detected (NOT DETECT); Coronavirus 229E,HKU1,NL63,OC4 Not Detected (NOT DETECT); Human Metapneumovirus Not Detected (NOT DETECT); Human Rhinovirus/Enterovirus Not Detected (NOT DETECT); Influenza A Not Detected (NOT DETECT); Influenza A H1 Not Detected (NOT DETECT); Influenza A H1-2009 Not Detected (NOT DETECT); Influenza A H3 Not Detected (NOT DETECT); Influenza B Not Detected (NOT DETECT); Mycoplasma Pneumoniae Not Detected (NOT DETECT); Parainfluenza Virus Type 1 Not Detected (NOT DETECT); Parainfluenza Virus Type 2 Not Detected (NOT DETECT); Parainfluenza Virus Type 3 Not Detected (NOT DETECT); Parainfluenza Virus Type 4 Not Detected (NOT DETECT); Respiratory Syncytial Virus A Not Detected (NOT DETECT); Respiratory Syncytial Virus B Not Detected (NOT DETECT); SARS-COV-2 Not Detected (NOT DETECT)
--- NOTE | 2021-07-22 18:39 | ECG_ITS ---
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 Measurements Intervals Whitt Rate: 65 P: VT: QRS: -59 QRSD: 187 T: 105 QT: 488 QTc: 508 Interpretive Statements ELECTRONIC VENTRICULAR PACEMAKER Compared to ECG 07/22/2021 14:43:03 ST (T wave) deviation no longer present Myocardial infarct finding no longer present Electronically Signed On 07-22-2021 19:43:13 CDT by Juanjo Rico M.D. [email or web address] [id number]
[2021-07-22 18:56] LABS: Eosinophil Urine No Eosinophils Seen
[2021-07-22] MEDS: ipratropium-albuterol 3 mL Neb INHALATION (20:32)
[2021-07-22] MEDS: budesonide 0.5 mg/2 mL Neb INHALATION (20:33)
[2021-07-22] MEDS: morphine ER (12 HR) 30 mg tablet 60 MG PO (21:11)
[2021-07-22] MEDS: insulin glargine 100 units/1 mL 40 UNIT SUBCUT (22:09)
[2021-07-22] MEDS: isosorbide mononitrate ER 60 mg Tablet PO (23:13)
[2021-07-23] VITALS (14 sets, daily range): BP systolic 103–150; BP diastolic 58–83; PULSE 64–76; RESP 14–18; TEMP 36.6–36.8; O2SAT 92–100
[2021-07-23] MEDS: ipratropium-albuterol 3 mL Neb INHALATION ×4 (02:52→20:05)
[2021-07-23 05:37] LABS: Estmated Average Glucose 214; Hemoglobin A1C 9.1 % (4.0-6.0)
[2021-07-23] MEDS: heparin 5,000 unit/mL INJ 1 mL 5000 UNIT SUBCUT ×2 (05:38→18:00)
[2021-07-23 05:44] LABS: Chol HDL Ratio 4.21 mg/dL (0.0-4.40); Cholesterol 164 mg/dL (0-200); HDL Cholesterol 39 mg/dL (60-100); LDL Cholesterol Calculated 102 mg/dL (50-129); LDL HDL Ratio 2.62 RATIO (0.00-3.22); Triglycerides 117 mg/dL (0-150)
[2021-07-23 05:47] LABS: Alanine Aminotransferase 23 U/L (0-33); Albumin Level 3.2 g/dL (3.5-5.2); Alkaline Phosphatase 134 IU/L (35-105); Aspartate Amino Transferase 35 U/L (0-32); Blood Urea Nitrogen 71 mg/dL (6-20); Calcium 8.3 mg/dL (8.5-10.5); Carbon Dioxide 24 mmol/L (22-29); Chloride 103 mmol/L (98-107); Globulin 2.8 g/dL (1.3-4.6); Glomerular Filtration Rate 28.9 mL/min (90-130); Glucose 178 mg/dL (65-115); Magnesium 2.2 mg/dL (1.7-2.3); Osmolality Calculated 303 mOsm/kg (285-295); Phosphorus 4.4 mg/dL (2.5-4.5); Sodium 134 mmol/L (136-145); Total Bilirubin 1.6 mg/dL (0.15-1.2)
[2021-07-23] MEDS: budesonide 0.5 mg/2 mL Neb INHALATION ×2 (09:10→20:05)
[2021-07-23] MEDS: pantoprazole DR 40 mg Tablet PO (10:01)
[2021-07-23] MEDS: insulin glargine 100 units/1 mL 40 UNIT SUBCUT ×2 (10:01→21:14)
[2021-07-23] MEDS: ferrous gluconate 324 mg Tablet PO ×2 (10:01→18:19)
[2021-07-23] MEDS: morphine ER (12 HR) 30 mg tablet 60 MG PO (10:01)
[2021-07-23] MEDS: FUROsemide 10 mg/mL SDV 4mL 40 MG IVP (12:36)
[2021-07-23] MEDS: insulin lispro 100 unit/1 mL SUBCUT ×2 (12:36→18:20)
[2021-07-23 13:14] LABS: Basophils # 0.1 10^3/uL (0.0-0.1); Basophils % 0.6 %; Eosinophils # 0.2 10^3/uL (0.0-0.8); Eosinophils % 1.9 %; Hematocrit 35.6 % (37.0-47.0); Hemoglobin 11.7 g/dL (11.5-15.3); Lymphocytes % 12.4 %; Mean Corpuscular HGB Conc 32.9 g/dL (30.0-36.0); Mean Corpuscular Volume 94.4 fl (81-99); Mean Platelet Volume 11.4 fL (7.4-10.4); Monocytes # 0.8 10^3/uL (0.2-0.9); Monocytes % 9.9 %; Neutrophils # 5.81 10^3/uL (1.8-7.7); Neutrophils % 74.9 %; Nucleated Red Blood Cells % 0 %; Platelet Count 132 10^3/cmm (130-400); Red Blood Count 3.77 10^6/uL (4.1-5.3); Red Cell Distribution Width 13.8 % (12.1-15.1); White Blood Count 7.8 10^3/uL (4.0-10.0)
[2021-07-23 13:34] LABS: Alanine Aminotransferase 29 U/L (0-33); Albumin Level 4.1 g/dL (3.5-5.2); Alkaline Phosphatase 171 IU/L (35-105); Anion Gap 13.2 (5-19); Aspartate Amino Transferase 44 U/L (0-32); Blood Urea Nitrogen 67 mg/dL (6-20); Calcium 9.3 mg/dL (8.5-10.5); Carbon Dioxide 25 mmol/L (22-29); Chloride 100 mmol/L (98-107); Globulin 3.6 g/dL (1.3-4.6); Glomerular Filtration Rate 35.7 mL/min (90-130); Glucose 189 mg/dL (65-115); Osmolality Calculated 300 mOsm/kg (285-295); Potassium 5.2 mmol/L (3.5-5.1); Sodium 133 mmol/L (136-145); Total Protein 7.7 g/dL (6.6-8.7)
[2021-07-23 13:40] LABS: Procalcitonin 0.11 ng/mL (0-0.5)
--- NOTE | 2021-07-23 16:24 | P.PN_ITS ---
Subjective Subjective: No evidence overnight. Patient denies any nausea vomiting, headache. Continues on room air and on room air. She states she still willing out of breath on minimal exertion. Sitting up having her breakfast during examination. Family at bedside. We discussed in detail regarding low probability of having a significant PE given the fact that she is on room air and there was no right heart strain on echocardiogram along with a negative lower limb Dopplers. We also discussed that in the past patient has been hesitant of adding on anticoagulation given her history of esophageal varices. Patient agreeable to hold off on CTA or anticoagulation for now. Vitals/I&O/Wt Last Vital Signs Temp 98.1 F 07/23/21 15:28 Pulse 64 07/23/21 15:28 Resp 16 07/23/21 15:28 BP 113/69 07/23/21 15:28 Pulse Ox 92 07/23/21 15:28 07/23/21 07/23/21 07/23/21 06:59 14:59 22:59 Intake Total 676.25 / 957.917 480 / 480 Balance 676.25 / 757.917 480 / 480 Weight last 48 hrs Weight 90.718 kg Physical Exam Narrative: General: No acute distress, AO x3, anxious HEENT: PERRLA, pupils bilaterally equal and reactive Chest: Normal vesicular breath sounds, occasional rhonchi present in bilateral lower zone, equal good air entry bilaterally CVS: S1-S2 regular, no murmurs, no tachycardia, no gallops, no rubs Abdomen: Soft, nontender, no organomegaly, bowel sounds present Neuro: No focal deficits, no facial deformity, AO x3, power 5/5 in all limbs Data : 07/23/21 12:55 07/23/21 12:55 Micro: Microbiology 07/22/21 17:11 Bacterial Antigens - Final Urine Kidney 07/22/21 15:30 Legionella Urinary Antigen - Final Urine,Voided A&P Assessment and plan (1) Dyspnea: Status: Acute (2) Elevated d-dimer: Status: Acute (3) (HFpEF) heart failure with preserved ejection fraction: Status: Acute (4) Acute kidney injury: Status: Acute (5) CAD (coronary artery disease): Status: Acute Qualifiers: Coronary Disease-Associated Artery/Lesion type: [place] artery [place] vs. transplanted heart: [place] heart Associated angina: without angina Qualified Code(s): I25.10 - Atherosclerotic heart disease of [place] coronary artery without angina pectoris (6) Atrial fibrillation: Status: Acute Qualifiers: Atrial fibrillation type: paroxysmal Qualified Code(s): I48.0 - Paroxysmal atrial fibrillation (7) Pacemaker: Status: Acute (8) Essential hypertension: Status: Acute (9) Diabetes mellitus: Status: Acute Plan Dyspnea/shortness of breath: Pneumonia ruled out with chest imaging negative for infiltrate. To acute on chronic diastolic heart failure. Pulm embolism less likely even though D-dimer is elevated. Patient lower limb Dopplers are negative, no significant right heart strain on echocardiogram. Patient remains on room air. Patient has history of esophageal varices for which she was never put on anticoagulation given for atrial fibrillation. For now continue to hold off on full dose anticoagulation. Patient is agreeable. Can do VQ scan. Keep oxygen saturation over 88%. History of heart failure with preserved ejection fraction: Repeat echocardiogram shows an EF of 55 to 60%, diastolic function could not be determined given paced rhythm, mildly reduced RV function, moderate MR, trace AI, mild TR and pulmonary hypertension. Lasix IV 40 mg stat. Fluid restriction. Strict input output charting. Patient has finished a course of doxycycline. No infiltrate on chest x-ray. Urine Legionella bacterial antigen, Pro-Phu negative. Continue to hold off on antibiotics for now. Start on DuoNeb every 6 hour, budesonide twice daily. Acute kidney injury: Baseline creatinine 1.1-1.3. Creatinine 1.5 today. Is quite possible that patient's baseline creatinine is somewhere around 1.5-1.8 now. Medical reconciliation done for nephrotoxic drugs. Monitor BMP daily for now. Strict input output charting. Atrial fibrillation: Continue with home dose of nadolol. Full dose aspirin for anticoagulation. Hypertension: Goal blood pressure less than 140/90 mmHg. Continue home antihypertensives except losartan. Type 2 diabetes mellitus: Continue home dose of insulin. HbA1c 9.1. Dizziness: Check orthostatics. Full code. Cardiac carb consistent diet. Protonix for PUD prophylaxis. Heparin 5000 every 12 hourly. 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 transplanted heart: [place] heart Associated angina: without angina Atrial fibrillation I48.0 Atrial fibrillation type: paroxysmal Pacemaker Z95.0 Essential hypertension I10 Diabetes mellitus E11.9
[2021-07-23] MEDS: morphine ER (12 HR) 30 mg tablet PO (18:00)
[2021-07-23] MEDS: isosorbide mononitrate ER 60 mg Tablet PO (21:13)
[2021-07-24] VITALS (10 sets, daily range): BP systolic 116–151; BP diastolic 64–82; PULSE 62–70; RESP 16–18; TEMP 36.7–37.7; O2SAT 91–98
[2021-07-24] MEDS: ipratropium-albuterol 3 mL Neb INHALATION ×2 (02:29→09:03)
[2021-07-24 04:54] LABS: Basophils % 0.4 %; Eosinophils # 0.1 10^3/uL (0.0-0.8); Eosinophils % 1.9 %; Hematocrit 31.6 % (37.0-47.0); Lymphocytes # 1.1 10^3/uL (0.8-4.8); Lymphocytes % 24.5 %; Mean Corpuscular HGB Conc 31.6 g/dL (30.0-36.0); Mean Corpuscular Hemoglobin 30.7 pg (28.0-34.0); Mean Corpuscular Volume 96.9 fl (81-99); Mean Platelet Volume 11.2 fL (7.4-10.4); Monocytes # 0.5 10^3/uL (0.2-0.9); Monocytes % 11.6 %; Neutrophils # 2.86 10^3/uL (1.8-7.7); Neutrophils % 61.4 %; Nucleated Red Blood Cells % 0 %; Platelet Count 98 10^3/cmm (130-400); Red Blood Count 3.26 10^6/uL (4.1-5.3); Red Cell Distribution Width 13.5 % (12.1-15.1); White Blood Count 4.7 10^3/uL (4.0-10.0)
[2021-07-24 05:22] LABS: Alanine Aminotransferase 22 U/L (0-33); Albumin Level 3.4 g/dL (3.5-5.2); Alkaline Phosphatase 137 IU/L (35-105); Anion Gap 12.5 (5-19); Aspartate Amino Transferase 33 U/L (0-32); Blood Urea Nitrogen 64 mg/dL (6-20); Calcium 8.6 mg/dL (8.5-10.5); Carbon Dioxide 26 mmol/L (22-29); Chloride 104 mmol/L (98-107); Glomerular Filtration Rate 33.1 mL/min (90-130); Glucose 115 mg/dL (65-115); Magnesium 2.2 mg/dL (1.7-2.3); Osmolality Calculated 305 mOsm/kg (285-295); Potassium 4.5 mmol/L (3.5-5.1); Sodium 138 mmol/L (136-145); Total Bilirubin 1.5 mg/dL (0.15-1.2); Total Protein 6.4 g/dL (6.6-8.7)
[2021-07-24] MEDS: insulin glargine 100 units/1 mL 40 UNIT SUBCUT (08:08)
[2021-07-24] MEDS: ferrous gluconate 324 mg Tablet PO (08:08)
[2021-07-24] MEDS: pantoprazole DR 40 mg Tablet PO (08:08)
[2021-07-24] MEDS: heparin 5,000 unit/mL INJ 1 mL 5000 UNIT SUBCUT (08:52)
[2021-07-24] MEDS: budesonide 0.5 mg/2 mL Neb INHALATION (09:03)
[2021-07-24] MEDS: morphine ER (12 HR) 30 mg tablet PO (10:10)
[2021-07-24] MEDS: FUROsemide 10 mg/mL SDV 4mL 40 MG IVP (10:10)
--- NOTE | 2021-07-24 11:29 | PM.DCS ---
Discharge Providers Date of Admission: 07/22/21 14:06 Date of Discharge: July 24, 2021 Attending Provider at Admission: Cooper Saleem MD Attending Provider at Discharge: Cooper Saleem MD Primary Care Provider: Sohail Oliva MD Diagnoses at Discharge Discharge Diagnosis (1) Dyspnea: Status: Acute (2) Elevated d-dimer: Status: Acute (3) (HFpEF) heart failure with preserved ejection fraction: Status: Acute (4) Acute kidney injury: Status: Acute (5) CAD (coronary artery disease): Status: Acute Qualifiers: Coronary Disease-Associated Artery/Lesion type: hughes artery [place] vs. transplanted heart: hughes heart Associated angina: without angina Qualified Code(s): I25.10 - Atherosclerotic heart disease of hughes coronary artery without angina pectoris (6) Atrial fibrillation: Status: Acute Qualifiers: Atrial fibrillation type: paroxysmal Qualified Code(s): I48.0 - Paroxysmal atrial fibrillation (7) Pacemaker: Status: Acute (8) Essential hypertension: Status: Acute (9) Diabetes mellitus: Status: Acute Reason for Visit Reason for Visit: Diff breathing, chest congestion, cough Hospital Course Hospital Course Jacquelin Whiteside is a 56 year old female with past medical history of CAD, post CABG, pacemaker implantation for significant bradycardia, atrial fibrillation on full dose aspirin for anticoagulation due to history of esophageal varices, heart failure with preserved ejection fraction, type 2 diabetes mellitus, CKD with baseline creatinine of 1.1-1.3. On review of chart it seems patient has been having health issues going on for last 1 month.? She feels tired a GI bug which caused her to have nausea vomiting and diarrhea after which she had dizziness.? For last 1 week she has been having difficulty in breathing getting worse on exertion and on laying flat.? Not associated with fever, expectoration, chest pain.? Still complaining of dizziness.? She was given IM ceftriaxone 1 dose followed by a course of doxycycline with last dose today.? As patient was not improving so she came to the ER today.? She denies of having any runny nose, headache, sick contacts, fever, recent travels, being sedentary for long hours. In the ER, patient was found to have a heart of 61, blood pressure 136/60, saturating 93% on room air but was found to be dyspneic on minimal ambulation so hospitalist team was consulted for possible admission. ED course: Patient was given IV fluids and normal saline 100 cc/h, blood work was done which showed a white count of 6.3, hemoglobin of 10.7, D-dimer of 6.08, sodium 136, BUN of 32, creatinine of 2, bilirubin of 1.6, AST/ALT 48/30, alkaline phosphatase of 167, baseline troponin of 82 with a delta of 0.9 in 2 hours, proBNP of 872.? Chest x-ray negative for any acute normality. Patient was admitted to hospital further evaluation and management of shortness of breath on exertion. Her symptoms are most likely secondary to congestive heart failure. Echocardiogram was done which showed an EF 55 to 60% with diastolic dysfunction, mildly reduced RV function, moderate MR mild TR with pulmonic regurgitation. On admission patient had mildly elevated D-dimer up to 6 and was found to be in DAMARIS. As patient was in DAMARIS she did not get CTA on admission. Lower limb Dopplers were done which were negative for DVT. VQ scan was done which was low probability for PE. She remained on room air during hospitalization. She was started on IV diuretics to which she responded well and DAMARIS and symptoms started improving. Patient was counseled in detail regarding heart failure medication regimen and lifestyle modifications. She has been discharged in hemodynamically stable condition on oral Lasix 40 mg twice daily with advised to follow-up with her primary care provider within next 1 week for repeat BMP. She is advised to follow-up with pharmaceutical operator on set appointment. Physical Exam Narrative: General: No acute distress, AO x3, anxious HEENT: PERRLA, pupils bilaterally equal and reactive Chest: Normal vesicular breath sounds, occasional rhonchi present in bilateral lower zone, equal good air entry bilaterally CVS: S1-S2 regular, no murmurs, no tachycardia, no gallops, no rubs Abdomen: Soft, nontender, no organomegaly, bowel sounds present Neuro: No focal deficits, no facial deformity, AO x3, power 5/5 in all limbs Discharge Data Studies Completed and Pending Completed Studies During Hospitalization Category Date Time Status CT chest wo con [id number] Stat Cat Scan 07/22/21 15:40 Completed XR chest 1V portable [id number] Urgent Exams 07/22/21 10:43 Completed NM pul vent and perfus* [id number] Routine Nuc Med 07/24/21 16:28 Completed CV. echo complete* [id number] Routine Ultrasound 07/22/21 15:54 Completed US venous duplex lower extremity bilat [CV venous Ultrasound 07/22/21 13:30 [place] [id number]] Urgent Radiology Impressions Chest X-Ray 07/22/21 10:43 IMPRESSION: Stable exam, no acute findings. Venous Duplex 07/22/21 13:30 IMPRESSION: No evidence of deep vein thrombosis. Chest CT 07/22/21 15:40 IMPRESSION: 1. Nodular ground-glass opacities throughout the right lung suspicious for multifocal pneumonia. Radiographic follow-up is recommended to ensure resolution. 2. Nodular liver morphology suggestive of underlying liver dysfunction/cirrhosis. Pulmonary Perfusion Imaging 07/24/21 16:28 IMPRESSION: 1. Low probability for pulmonary embolus. Echocardiogram: ?CONCLUSIONS ?LV systolic function is normal with EF of 55 to 60%.? Mild?septal motion is consistent with conduction abnormality. ?Diastolic function is indeterminate because of paced rhythm. ?Mildly reduced RV function. ?Moderate mitral regurgitation. ?Trace aortic regurgitation. ?Mild tricuspid regurgitation.? Mild pulmonic regurgitation. ?Mild pulmonary hypertension ?Compared to prior echocardiogram from 07/13/2020, patient's?mitral regurgitation has progressed and is moderate now. Mild ?pulmonary hypertension is also seen ?Juanjo Rico MD ?(Electronically Signed) ?Final Date:? ? ? 23 Jul 2021 10:11 S Laboratory Results WBC 4.7 10^3/uL (4.0-10.0) 07/24/21 04:39 RBC 3.26 10^6/uL (4.1-5.3) L 07/24/21 04:39 Hgb 10.0 g/dL (11.5-15.3) L 07/24/21 04:39 Hct 31.6 % (37.0-47.0) L 07/24/21 04:39 MCV 96.9 fl (81-99) 07/24/21 04:39 MCH 30.7 pg (28.0-34.0) 07/24/21 04:39 MCHC 31.6 g/dL (30.0-36.0) 07/24/21 04:39 RDW 13.5 % (12.1-15.1) 07/24/21 04:39 Plt Count 98 10^3/cmm (130-400) L 07/24/21 04:39 MPV 11.2 fL (7.4-10.4) H 07/24/21 04:39 Neut % (Auto) 61.4 % 07/24/21 04:39 Lymph % (Auto) 24.5 % 07/24/21 04:39 [place] % (Auto) 11.6 % 07/24/21 04:39 Eos % (Auto) 1.9 % 07/24/21 04:39 Baso % (Auto) 0.4 % 07/24/21 04:39 Neut # (Auto) 2.86 10^3/uL (1.8-7.7) 07/24/21 04:39 Lymph # (Auto) 1.1 10^3/uL (0.8-4.8) 07/24/21 04:39 [place] # (Auto) 0.5 10^3/uL (0.2-0.9) 07/24/21 04:39 Eos # (Auto) 0.1 10^3/uL (0.0-0.8) 07/24/21 04:39 Baso # (Auto) 0.0 10^3/uL (0.0-0.1) 07/24/21 04:39 Nucleated RBC % (auto) 0 % 07/24/21 04:39 Nucleated RBCs # 0.0 /100WBC 07/24/21 04:39 D-Dimer 6.08 ug/mIFEU (0-0.59) H 07/22/21 11:15 Sodium 138 mmol/L (136-145) 07/24/21 04:39 Potassium 4.5 mmol/L (3.5-5.1) 07/24/21 04:39 Chloride 104 mmol/L (98-107) 07/24/21 04:39 Carbon Dioxide 26 mmol/L (22-29) 07/24/21 04:39 Anion Gap 12.5 (5-19) 07/24/21 04:39 BUN 64 mg/dL (6-20) H 07/24/21 04:39 Creatinine 1.6 mg/dL (0.5-0.9) H 07/24/21 04:39 GFR Calculation 33.1 mL/min (90-130) L 07/24/21 04:39 Glucose 115 mg/dL (65-115) 07/24/21 04:39 Estimat Average Glucose 214 07/23/21 04:53 Hemoglobin A1c 9.1 % (4.0-6.0) H 07/23/21 04:53 Calculated Osmolality 305 mOsm/kg (285-295) H 07/24/21 04:39 Calcium 8.6 mg/dL (8.5-10.5) 07/24/21 04:39 Phosphorus 4.0 mg/dL (2.5-4.5) 07/24/21 04:39 Magnesium 2.2 mg/dL (1.7-2.3) 07/24/21 04:39 Iron 71 ug/dL (37-145) 07/22/21 16:18 TIBC 352 mcg/dl 07/22/21 16:18 % Saturation 20.1 % (20-50) 07/22/21 16:18 Unsat Iron Binding 281 ug/dL (112-347) 07/22/21 16:18 Total Bilirubin 1.5 mg/dL (0.15-1.2) H 07/24/21 04:39 AST 33 U/L (0-32) H 07/24/21 04:39 ALT 22 U/L (0-33) 07/24/21 04:39 Alkaline Phosphatase 137 IU/L (35-105) H 07/24/21 04:39 Troponin T Baseline 82 ng/L (0-10) H 07/22/21 11:15 Troponin T 120 Minute 82.98 ng/L (0-10) H 07/22/21 13:10 Delta Troponin T 0.98 ABS# (0-10) 07/22/21 13:10 Troponin T Hi Sens 6Hr 75.75 ng/L (0-10) H 07/22/21 16:18 Troponin T Hi Sens 6Hr Delta -6.25 ng/L (0-12) L 07/22/21 16:18 NT-Pro-B Natriuret Pep 872 pg/mL (0-125) H 07/22/21 11:15 Total Protein 6.4 g/dL (6.6-8.7) L 07/24/21 04:39 Albumin 3.4 g/dL (3.5-5.2) L 07/24/21 04:39 Globulin 3.0 g/dL (1.3-4.6) 07/24/21 04:39 Triglycerides 117 mg/dL (0-150) 07/23/21 04:53 Cholesterol 164 mg/dL (0-200) 07/23/21 04:53 LDL Cholesterol, Calc 102 mg/dL (50-129) 07/23/21 04:53 HDL Cholesterol 39 mg/dL (60-100) L 07/23/21 04:53 LDL/HDL Ratio 2.62 RATIO (0.00-3.22) 07/23/21 04:53 Cholesterol/HDL Ratio 4.21 mg/dL (0.0-4.40) 07/23/21 04:53 TSH 1.51 uIU/mL (0.27-4.20) 07/22/21 16:18 Procalcitonin 0.11 ng/mL (0-0.5) 07/23/21 12:55 Urine Color Yellow (Yellow) 07/22/21 15:30 Urine Appearance Clear (CLEAR) 07/22/21 15:30 Urine pH 5 (5-7) 07/22/21 15:30 Ur Specific [place] 1.015 (1.005-1.030) 07/22/21 15:30 Urine Protein 1+ (Negative) H 07/22/21 15:30 Urine Glucose (UA) Norm (Normal) 07/22/21 15:30 Urine Ketones Negative (Negative) 07/22/21 15:30 Urine Blood Neg (Negative) 07/22/21 15:30 Urine Nitrate Negative (Negative) 07/22/21 15:30 Urine Bilirubin Neg (Negative) 07/22/21 15:30 Urine Urobilinogen Norm mg/dL (Negative) 07/22/21 15:30 Ur Leukocyte Esterase Negative (Negative) 07/22/21 15:30 Urine RBC None /hpf (0-2) 07/22/21 15:30 Urine WBC 0-4 /hpf (0-5) H 07/22/21 15:30 Ur Eosinophil Smear Not Reportable 07/22/21 15:30 Ur Squamous Epith Cells 5-10 /hpf (0-5) H 07/22/21 15:30 Amorphous Sediment Not Reportable 07/22/21 15:30 Urine Bacteria 1+ /hpf (NONE) H 07/22/21 15:30 Hyaline Casts 0-4 /lpf H 07/22/21 15:30 Urine Eosinophils No eosinophils seen 07/22/21 15:30 Ur Random Sodium 65 mmol/L 07/22/21 15:30 Ur Random Potassium 23 mmol/L 07/22/21 15:30 Ur Random Chloride 67 mmol/L 07/22/21 15:30 Urine Creatinine 99 mg/dL (28-217) 07/22/21 15:30 Coronavirus 229E (PCR) Not detected (NOT DETECT) 07/22/21 16:25 Influenza Type A Ag Negative (Negative) 07/22/21 16:25 Influenza Type B Ag Negative (Negative) 07/22/21 16:25 SARS-CoV-2 (PCR) Not detected (NOT DETECT) 07/22/21 16:25 Vitals Last Vital Signs Temp 98.1 F 07/24/21 07:53 Pulse 69 07/24/21 09:06 Resp 16 07/24/21 09:00 BP 136/82 07/24/21 08:00 Pulse Ox 98 07/24/21 09:00 Discharge Plan Discharge Patient Disposition: Home Condition: Stable Prescriptions: New ferrous gluconate 324 mg (37.5 mg iron) Tablet 324 mg PO BIDWM Qty: 60 0RF Continued nitroglycerin [Nitrostat] 0.4 mg tablet, sublingual 0.4 mg SUBLINGUAL DIRECTED PRN (Reason: Chest Pain) 0RF pantoprazole 40 mg tablet,delayed release (DR/EC) 40 mg PO DAILY 0RF cetirizine 10 mg tablet 10 mg PO DAILY PRN (Reason: Allergy Symptoms) 0RF tizanidine 4 mg capsule 4 mg PO DAILY PRN (Reason: Spasms) 0RF isosorbide mononitrate 60 mg tablet extended release 24 hr 60 mg PO DAILY Qty: 90 3RF potassium chloride 20 mEq tablet extended release 20 meq PO BID Qty: 180 3RF (DME) lancing device with lancets Kit See Rx Instructions .ROUTE .MEDSUPPLY Qty: 1 0RF Rx Instructions: As directed (DME) Blood Glucose Test Strip See Rx Instructions .ROUTE .MEDSUPPLY Qty: 100 12RF Rx Instructions: test 4 times daily (DME) lancets [BD Ultra Fine Lancets] 33 gauge misc See Rx Instructions .ROUTE .MEDSUPPLY Qty: 100 12RF Rx Instructions: test 4 times daily (DME) blood-glucose meter Kit See Rx Instructions .Route Qty: 1 11RF Rx Instructions: wanda 14 with sensors and patches insulin lispro 100 unit/mL insulin pen See Rx Instructions .ROUTE .COMPLEX Qty: 45 3RF Dose Instruction: INJECT USING SLIDING SCALE THREE TIMES DAILY, MAX OF 51 UNITS PER DOSE MAX OF 153 UNITS PER DAY Rx Instructions: INJECT USING SLIDING SCALE THREE TIMES DAILY, MAX OF 51 UNITS PER DOSE MAX OF 153 UNITS PER DAY nadolol 40 mg tablet 40 mg PO DAILY Qty: 45 3RF lidocaine-prilocaine 2.5-2.5 % cream 1 applic topical .3-4 times daily Qty: 240 3RF Rx Instructions: melox 0.09% lamotr2.5% in lido peg 3350-electrolytes [Golytely] 236-22.74-6.74 -5.86 gram recon soln 240 ml PO Q10M Qty: 4000 0RF Rx Instructions: until fecal effluent is clear (DME) pen needle, diabetic [BD Ultra-Fine Short Pen Needle] 31 gauge x 5/16 needle See Rx Instructions .ROUTE .MEDSUPPLY Qty: 150 3RF Rx Instructions: test 5 times daily (DME) Blood Glucose Test Strip See Rx Instructions .ROUTE .MEDSUPPLY Qty: 100 6RF Rx Instructions: TEST UP TO 4 TIMES A DAY Changed losartan 100 mg tablet 50 mg PO DAILY Qty: 90 3RF Rx Instructions: 340b furosemide [Lasix] 40 mg tablet 40 mg PO BID Qty: 90 3RF Lantus Solostar U-100 Insulin 100 unit/mL (3 mL) insulin pen 45 unit SUBCUT BID Qty: 15 5RF morphine 60 mg tablet extended release 30 mg PO Q12H 30 Days Qty: 60 0RF Discontinued celecoxib [Celebrex] 200 mg capsule 200 mg PO BID Qty: 60 3RF doxycycline hyclate 100 mg capsule 100 mg PO BID Qty: 10 0RF Discharge Orders: Discharge Order (Routine); Ordered 07/24/21 Ordered By: Cooper Saleem Referrals: Sohail Oliva MD [Primary Care Provider] - 7-10 days Praneeth Joseph MD [Physician] - 2 weeks Discharge Diet: As Directed and Cardiac Discharge Activity: Resume usual activity and Increase activity as tolerated Patient Instructions: Opioid Safety, Congestive Heart Failure Activity Restrictions/Additional Instructions: Multiple medication changes have been done as follows. Lasix has been increased to 40 mg twice daily. Dose of losartan has been decreased to 50 mg daily. Dose of morphine has been decreased to 30 mg twice daily. Dose of Lantus has been increased to 45 units twice daily. Try not to take Celebrex going forward because of high chances of acute kidney injury. Please follow-up with a primary provider within next 1 week for repeat BMP. To make sure that you do not take more than 1500 cc to 2 L of fluid daily. Restrict salt intake to less than 2 g. Check your body weight daily. If your body weight increases more than 5 pounds you can take extra dose of Lasix 40 mg. Discharge Attestations Time Spent in Discharge Care*: greater than 30 min Specific Discharge Activities: educating patient, educating and/or supporting family/caregiver, discussing with immigration case manager/social workers/dc planners, documenting/other paperwork and evaluating patient/reviewing data Status at Discharge: Cognitive status at discharge: cognitively intact, Behavioral status at discharge: cooperative, Functional status at discharge: independent ambulation, Overall status at discharge: patient is progressing back to baseline Quality Metrics Clinical Quality Measures [ No reported AMI, CVA or VTE this stay] Coding Level of Care Code Acute Chg FW DC note Diagnoses Dyspnea R06.00 Elevated d-dimer R79.89 (HFpEF) heart failure with preserved ejection fraction I50.30 Acute kidney injury N17.9 CAD (coronary artery disease) I25.10 Coronary Disease-Associated Artery/Lesion type: hughes artery [place] vs. transplanted heart: hughes heart Associated angina: without angina Atrial fibrillation I48.0 Atrial fibrillation type: paroxysmal Pacemaker Z95.0 Essential hypertension I10 Diabetes mellitus E11.9
--- NOTE | 2021-07-24 16:28 | NM_ITS ---
WS: [id number] NUCLEAR MEDICINE LUNG VENTILATION AND PERFUSION CLINICAL INFORMATION: elevated dimer TECHNIQUE: Ventilation/perfusion lung scan with 5.3 mCi MAA and 33.0 mCi technetium 99m DTPA. COMPARISON: CT chest July 22, 2021 FINDINGS: Relatively normal symmetric radiotracer deposition on the perfusion images. A few matched ventilation /perfusion defects. No mismatched ventilation/perfusion defects to indicate pulmonary embolus. Mild r adiotracer deposition along the central bronchi on the ventilatory images. Cardiomegaly. NM/NM pul vent and perfus* [id number] IMPRESSION: 1. Low probability for pulmonary embolus.
== END 2021-07-24 12:25 | disposition home or self-care (01) ==
LOC: ER 14:41 → MEDSURG 16:10
PROVIDERS: Admitting Provider Student in an Organized Health Care Education/Training Program; Emergency Provider Physician Assistant; PCP Internal Medicine; Visit Provider Student in an Organized Health Care Education/Training Program
DX: R06.00 Dyspnea, unspecified (principal); R79.89 Other specified abnormal findings of blood chemistry; N17.9 Acute kidney failure, unspecified; I25.10 Atherosclerotic heart disease of native coronary artery without angina pectoris; I48.0 Paroxysmal atrial fibrillation; Z95.0 Presence of cardiac pacemaker; Z95.1 Presence of aortocoronary bypass graft; I48.91 Unspecified atrial fibrillation; I11.0 Hypertensive heart disease with heart failure; E11.40 Type 2 diabetes mellitus with diabetic neuropathy, unspecified; I25.2 Old myocardial infarction; I50.30 Unspecified diastolic (congestive) heart failure; Z79.899 Other long term (current) drug therapy
CPT/HCPCS: 36415; 71045; 71250; 78014; 80053; 80061; 81001; 82436; 82570; 83036; 83540; 83550; 83735; 83880; 84100; 84133; 84145; 84300; 84443; 84484; 85025; 85378; 85999; 86403; 87449; 87635; 87804; 93005; 93306; 93970; 94640; 94664; 96361; 96372; 96374; 96375; 99285; A9540; A9567; G0378; J1644; J1815 ×2; J1940; J7030; J7626

== ENCOUNTER → 2021-07-31 15:26 | Outpatient (BNVA) | payer MEDICARE, MEDICAID, SELFPAY | PROVIDERS: PCP Internal Medicine; Visit Provider Internal Medicine | DX: I50.30 Unspecified diastolic (congestive) heart failure (principal); K75.81 Nonalcoholic steatohepatitis (NASH); I85.11 Secondary esophageal varices with bleeding; R06.00 Dyspnea, unspecified; R79.89 Other specified abnormal findings of blood chemistry; N17.9 Acute kidney failure, unspecified; J18.9 Pneumonia, unspecified organism | CPT/HCPCS: 80053 ==

== ENCOUNTER → 2021-08-09 11:34 | Outpatient (BNVA) | payer MEDICARE, MEDICAID, SELFPAY | PROVIDERS: PCP Internal Medicine; Visit Provider Internal Medicine Cardiovascular Disease | DX: Z45.010 Encounter for checking and testing of cardiac pacemaker pulse generator [battery] (principal) | CPT/HCPCS: 93279 ==

== ENCOUNTER → 2021-08-13 10:45 | Outpatient (BNVA) | payer MEDICARE, MEDICAID, SELFPAY | PROVIDERS: PCP Internal Medicine; Visit Provider Internal Medicine Cardiovascular Disease | DX: I50.30 Unspecified diastolic (congestive) heart failure (principal); Z45.010 Encounter for checking and testing of cardiac pacemaker pulse generator [battery]; E78.5 Hyperlipidemia, unspecified; E11.9 Type 2 diabetes mellitus without complications; I48.0 Paroxysmal atrial fibrillation; Z87.891 Personal history of nicotine dependence; Z95.1 Presence of aortocoronary bypass graft; I25.2 Old myocardial infarction; Z79.4 Long term (current) use of insulin | CPT/HCPCS: 36415; 80048; 83880; 85025; 85610; 86850; 86900; 99215 ==

== ENCOUNTER 2021-08-20 10:33 | Observation (INO) | payer MEDICARE, MEDICAID, SELFPAY ==
[2021-08-20] VITALS (10 sets, daily range): BP systolic 137–177; BP diastolic 64–91; PULSE 60–72; RESP 13–18; TEMP 36.7–36.9; O2SAT 95–98; BMI 35.2
--- NOTE | 2021-08-20 08:20 | W.PM.OPSUD ---
Surgery/Procedure H&P Update DATE OF PROCEDURE: August 20, 2021 DATE H&P PERFORMED: 08/13/21 H&P UPDATE INFORMATION: I have reviewed H&P completed within last 30 days, I have examined patient prior to procedure and No changes to prior documentation PREOP DIAGNOSIS: Pacemaker ELIZABETH PRIMARY INDICATION FOR PROCEDURE: Pacemaker ELIZABETH PLANNED PROCEDURE: Operation Date: 08/20/21 08:30 Proposed Procedures p Pacemaker Generator Change(Left) - Praneeth Joseph MD PATIENT REASSESSED PRIOR TO SEDATION, WITH NO CHANGE NOTED: Yes PHYSICAL EXAM: alert, oriented x 3, clear to auscultation bilaterally and regular rate & rhythm AIRWAY EVAL/ANESTHESIA PLAN: normal airway, see other exam findings, ASA II, Monitored Anesthesia, Local Anesthesia, Risks, benefits & alternatives of sedation and/or procedure discussed and Patient agrees to continue as planned
[2021-08-20] MEDS: potassium chloride ER 20 mEq Tablet PO ×2 (16:36→21:57)
--- NOTE | 2021-08-20 17:42 | PM.OP ---
Operative Report Date of procedure: August 20, 2021 Pre-op diagnosis: Preop Diagnosis Pacemaker ELIZABETH Procedure: PROCEDURE: PACEMAKER REVISION PREOPERATIVE DIAGNOSIS: Pacemaker elective replacement indication. POSTOPERATIVE DIAGNOSIS: Pacemaker elective replacement indication. ESTIMATED BLOOD LOSS: Around 5 milliliters. COMPLICATIONS: None. BRIEF HISTORY: The patient is 56-year-old white female who had a permanent pacemaker implantation for symptomatic bradycardia. The patient was found to have elective replacement indication, during routine office followup evaluation. For further management of patient's condition for the symptomatic bradycardia, the patient required a pacemaker revision. Patient required a dual-chamber pacemaker for symptom relief and the need for AV synchrony The procedure was explained to the patient and her in detail with the risks and benefits. The risks of bleeding, hematoma, vascular injury, infection and other concomitant complications were explained in detail, which the patient understood well and consented to proceed. PROCEDURES PERFORMED: 1. Explantation of the old pacemaker generator. 2. Implantation of the new generator. The patient brought to the Cardiac Composite Layup Worker. The left side of the neck and the subclavian area were cleaned and draped in a sterile fashion. 1% Xylocaine was used for local anesthetic agent. A 2 inch long incision was made just below the previous pacemaker scar. By sharp and blunt dissection, the pacemaker pocket was accessed. The old generator was delivered from the pocket. The generator was detached from the lead. The new Medtronic generator was attached to the lead. The pacemaker pocket was copiously irrigated with vancomycin solution. Complete hemostasis was achieved. The lead was positioned behind the generator and the generator was attached to the pectoralis fascia by suturing with 0 Surgilon. Sponge counts were confirmed. The pacemaker pocket was closed in layers. Skin was approximated using 4-0 Vicryl. EXPLANTED DEVICE: Pacemaker Generator: Brand: ADAPTA. Model number: [id number]. Serial number: [id number] Date of implant: 01/25/2014 IMPLANTED DEVICES: Ventricular Lead: Date of implantation: 01/25/2014 Model number: 5076/58 Serial number: [id number] Make: Medtronic. Atrial lead Date of implantation: 01/25/2014 Model number: 5076/52 Serial number: [id number] Make: Medtronic. Implanted Generator: Date of implantation : 08/20/2021 Brand: Keriflower Spence. Model number: [id number] Serial number: [id number] Make: Medtronic Stimulation Threshold: The ventricular sensing was 10.0 millivolts. Ventricular lead impedance was 456 ohms and the pacing threshold was 0.75 volts at 0.4 milliseconds. The atrial sensing was could not be obtained millivolts. Atrial lead impedance was 418 ohms and the pacing threshold was 1.75 volts at 1.0 milliseconds. The pacemaker was set for AAIR/DDDR mode with an upper rate of 130 and a lower rate of 60. A pressure dressing was applied over the pacemaker site. The patient was transferred back to medical floor in stable condition. Sponge counts were correct.
[2021-08-20] MEDS: FUROsemide 40 mg Tablet 60 MG PO (17:48)
[2021-08-20] MEDS: CELEcoxib 200 mg Capsule PO (17:48)
[2021-08-20] MEDS: ferrous gluconate 324 mg Tablet PO (17:48)
[2021-08-20] MEDS: insulin glargine 100 units/1 mL 45 UNIT SUBCUT (17:48)
[2021-08-20] MEDS: insulin lispro 100 unit/1 mL SUBCUT (17:49)
[2021-08-20] MEDS: morphine ER (12 HR) 30 mg tablet 60 MG PO (18:00)
[2021-08-21 02:15] VITALS: BP 178/94; PULSE 60; RESP 18; TEMP 36.8; O2SAT 96
[2021-08-21 06:00] VITALS: PULSE 78
--- NOTE | 2021-08-21 06:00 | ECG_ITS ---
[facility] Test Date: 2021-08-21 Pat Name: Jacquelin Whiteside Department: Room: 276 Gender: Female Personal Lines Account Manager: : 1965 Requested By: Praneeth Joseph Order Number: [id number] Boom MD: Frederick Fang M.D. Measurements Intervals [place] Rate: 60 P: 121 TX: 268 QRS: 53 QRSD: 98 T: -80 QT: 471 QTc: 473 Interpretive Statements ELECTRONIC ATRIAL PACEMAKER SEPTAL MYOCARDIAL INFARCTION , PROBABLY OLD [40+ ms Q WAVE IN V1/V2] MODERATE T-WAVE ABNORMALITY, CONSIDER ANTEROLATERAL ISCHEMIA [-0.1+ mV T WAVE IN V3-V6] MODERATE T-WAVE ABNORMALITY, CONSIDER INFERIOR ISCHEMIA [-0.1+ mV T WAVE IN II/aVF] Compared to ECG 07/22/2021 18:44:32 Myocardial infarct finding now present T-wave abnormality now present Possible ischemia now present Ventricular-paced complex(es) or rhythm no longer present Electronically Signed On 08-21-2021 10:28:40 CDT by Frederick Fang M.D. [id number]
[2021-08-21] MEDS: morphine ER (12 HR) 30 mg tablet 60 MG PO (06:45)
--- NOTE | 2021-08-21 07:59 | PC.NURSE ---
received bedside report, pt resting comfortably, no needs identified at this time. reviewed poc and assumed care of patient.
[2021-08-21 08:21] VITALS: BP 144/71; PULSE 60; RESP 15; TEMP 36.8; O2SAT 95
[2021-08-21 08:23] VITALS: BP 152/73
[2021-08-21] MEDS: FUROsemide 40 mg Tablet 60 MG PO (08:23)
[2021-08-21] MEDS: losartan 50 mg Tablet PO (08:23)
[2021-08-21] MEDS: ferrous gluconate 324 mg Tablet PO (08:23)
[2021-08-21] MEDS: isosorbide mononitrate ER 60 mg Tablet PO (08:24)
[2021-08-21] MEDS: CELEcoxib 200 mg Capsule PO (08:24)
[2021-08-21] MEDS: pantoprazole DR 40 mg Tablet PO (08:24)
[2021-08-21] MEDS: lactulose oral liq 20 gm/30 mL UDC 10 GM PO (08:24)
[2021-08-21] MEDS: potassium chloride ER 20 mEq Tablet PO (08:24)
[2021-08-21] MEDS: insulin lispro 100 unit/1 mL SUBCUT (08:25)
[2021-08-21] MEDS: insulin glargine 100 units/1 mL 45 UNIT SUBCUT (08:26)
--- NOTE | 2021-08-21 16:31 | PC.NURSE ---
dc'd pts piv and tele. discharge instructions and medications reviewed. pt verbalized understanding of activity limitations and follow up. left via [place] to private vehicle with her . all questions answered and no further questions.
== END 2021-08-21 11:30 | disposition home or self-care (01) ==
LOC: MEDSURG 10:34
PROVIDERS: Admitting Provider Internal Medicine Cardiovascular Disease; PCP Internal Medicine; Visit Provider Internal Medicine Cardiovascular Disease
DX: Z45.010 Encounter for checking and testing of cardiac pacemaker pulse generator [battery] (principal); I25.10 Atherosclerotic heart disease of native coronary artery without angina pectoris; I25.2 Old myocardial infarction; Z95.5 Presence of coronary angioplasty implant and graft; Z95.1 Presence of aortocoronary bypass graft; E11.40 Type 2 diabetes mellitus with diabetic neuropathy, unspecified; Z79.4 Long term (current) use of insulin; Z87.891 Personal history of nicotine dependence; I11.0 Hypertensive heart disease with heart failure; I50.30 Unspecified diastolic (congestive) heart failure
CPT/HCPCS: 33213; 36415; 93005; 96372; 97165; 99152; 99153; C1769; C1786; G0378; J0690; J1815; J2250; J3010; J7030; J7050; L3670

== ENCOUNTER → 2021-08-30 11:03 | Outpatient (BNVA) | payer MEDICARE, MEDICAID, SELFPAY | PROVIDERS: PCP Internal Medicine; Visit Provider Nurse Practitioner Family | DX: Z95.0 Presence of cardiac pacemaker (principal) | CPT/HCPCS: 93280; 99213 ==

== ENCOUNTER → 2021-09-27 15:38 | Outpatient (BNVA) | payer MEDICARE, MEDICAID, SELFPAY | PROVIDERS: PCP Internal Medicine; Visit Provider Nurse Practitioner Women's Health | DX: R39.9 Unspecified symptoms and signs involving the genitourinary system (principal) | CPT/HCPCS: 87086 ==

== ENCOUNTER → 2021-10-03 13:41 | Outpatient (BNVA) | payer MEDICARE, MEDICAID, SELFPAY | PROVIDERS: PCP Internal Medicine; Visit Provider Internal Medicine Cardiovascular Disease | DX: T82.7XXA Infection and inflammatory reaction due to other cardiac and vascular devices, implants and grafts, initial encounter (principal); I48.0 Paroxysmal atrial fibrillation; E11.9 Type 2 diabetes mellitus without complications; Z79.4 Long term (current) use of insulin; E78.5 Hyperlipidemia, unspecified; Z95.0 Presence of cardiac pacemaker; I11.0 Hypertensive heart disease with heart failure; I50.30 Unspecified diastolic (congestive) heart failure; Z87.891 Personal history of nicotine dependence | CPT/HCPCS: 99214 ==

== ENCOUNTER 2021-10-04 | Outpatient (CLI) | payer MEDICARE, MEDICAID, SELFPAY | END 2021-10-04 23:00 | disposition home or self-care (01) | LOC: RAD 12-24 00:52 | PROVIDERS: PCP Internal Medicine; Visit Provider Internal Medicine | DX: Z95.0 Presence of cardiac pacemaker (principal) | CPT/HCPCS: 99212 ==

== ENCOUNTER → 2021-11-12 11:02 | Outpatient (BNVA) | payer MEDICARE, MEDICAID, SELFPAY | PROVIDERS: PCP Internal Medicine; Visit Provider Nurse Practitioner Family | DX: I48.0 Paroxysmal atrial fibrillation (principal); I11.0 Hypertensive heart disease with heart failure; I50.30 Unspecified diastolic (congestive) heart failure; Z95.0 Presence of cardiac pacemaker; Z87.891 Personal history of nicotine dependence; I25.2 Old myocardial infarction; R30.0 Dysuria | CPT/HCPCS: 81001; 87086; 99214 ==

== ENCOUNTER → 2022-02-07 11:03 | Outpatient (BNVA) | payer MEDICARE, MEDICAID, SELFPAY | PROVIDERS: PCP Internal Medicine; Visit Provider Internal Medicine Cardiovascular Disease | DX: Z45.010 Encounter for checking and testing of cardiac pacemaker pulse generator [battery] (principal) | CPT/HCPCS: 93280 ==

== ENCOUNTER 2022-03-06 00:39 | Observation (INO) | payer MEDICARE, MEDICAID, SELFPAY ==
[2022-03-06] VITALS (35 sets, daily range): BP systolic 125–230; BP diastolic 71–152; PULSE 59–84; RESP 10–39; TEMP 36.3–37.2; O2SAT 96–100; BMI 37.1; BMI 36.5
--- NOTE | 2022-03-06 01:04 | W.ED.AMS ---
HPI - Altered Mental Status General: Chief Complaint: Altered Mental Status Stated Complaint: AMS Time Seen by Provider: 03/06/22 01:04 Limitations: altered mental status History of Present Illness: Ms. Whiteside is a 56-year-old lady with, per chart review, hypertension, hyperlipidemia, diabetes, A. fib, heart failure, and CASTANON presenting to the emergency department for altered mental status. Per EMS report they were called for possible overdose and found patient to be altered. She has recently started morphine and they administered Narcan which woke the patient up however patient has continued to be altered. History is otherwise limited by mental state. Review of Systems General: Reports: ROS unobtainable due to mental status PFSH ED PFSH: Medical History Atrial fibrillation CAD (coronary artery disease) Carpal tunnel syndrome Diabetes mellitus Essential hypertension Hepatomegaly History of CT (myocardial infarction) (~2006) Hyperlipidemia Migraine Neuropathy No pertinent past medical history neghx: thyroid,dvt/pe PCP: Dr. Oliva Pacemaker (~2012) Splenomegaly Sporadic pituitary adenoma Surgical History S/P arterial stent x 3; approximately in 2012, 2013 - [facility] S/P brain surgery (~2005) Removal of brain tumor- benign; in the pituitary gland S/P CABG x 2 in 2006 S/P section performed in 1990, 1992 S/P hysterectomy (~1992) converted from C/Section to NAMAN,bilateral salpingectomy, probable ovaries remain. Most likely performed by Dr. Roper. Vulvar abscess (~05/01/15) I&D of left labia majora abscess; performed by [facility]. Family History Brother Stroke Diabetes Mother , 72 Diabetes Heart disease Hypertension Stroke Father , 68 Diabetes Heart disease Hypertension Stroke Grandmother Diabetes Maternal Denies family history of Colon cancer Ovarian cancer Hypercholesteremia Breast cancer Uterine cancer Thyroid disease Social History Smoking and tobacco status: former smoker (20+ years) Alcohol intake: never Caregiver/support person: Yes Lives independently: Yes Household members: spouse Housing: House Marital status: Physical Exam Const: COMMON NORMALS: alert GENERAL APPEARANCE: well developed ORIENTATION/CONSCIOUSNESS: Yes confused HENMT: COMMON NORMALS: normocephalic and atraumatic HEAD & SCALP: normocephalic and atraumatic THROAT: posterior oropharynx normal Eye: COMMON NORMALS: conjunctivae normal CONJUNCTIVA: Yes conjunctivae normal SCLERA: sclerae normal Neck/C-Spine: COMMON NORMALS: supple and no meningeal signs GENERAL: Yes trachea midline Resp: COMMON NORMALS: clear to auscultation bilaterally EFFORT & INSPECTION: Yes tachypneic AUSCULTATION: clear to auscultation bilaterally Cardio: COMMON NORMALS: regular rate and regular rhythm RATE: regular rate RHYTHM: regular rhythm GI: COMMON NORMALS: Soft to palpation PALPATION: Yes Soft to palpation and No Tenderness to palpation present (GI) Extremity: GENERAL: Yes normal exam except as noted and No edema Neuro: COMMON NORMALS: moves all extremities SENSORIUM/ORIENTATION: Yes alert, Yes Orientation impaired and Yes somnolent MENINGEAL SIGNS: Yes no meningeal signs Psych: ATTENTION/CONCENTRATION: Yes attention grossly impaired and Yes concentration grossly impaired MEMORY/COGNITION: Yes memory grossly impaired and Yes cognition grossly impaired Course Vital Signs: Vital signs: Vital Signs Temperature 98.2 F 03/07/22 10:35 Pulse Rate 67 03/07/22 10:35 Respiratory Rate 16 03/07/22 10:35 Blood Pressure 184/84 03/07/22 10:35 Pulse Oximetry 95 03/07/22 10:35 Oxygen Delivery Me thod 03/07/22 08:00 Fraction of Inspir ed Oxygen 30 03/06/22 07:17 MDM - Altered Mental Status Medical Decision Making 56-year-old lady presenting with altered mental status, initially patient only 1 in the room and unable to provide meaningful clinical history. No obvious focal deficits however severely limited exam given patient mental state. EKG notable for sinus rhythm with nonspecific ST segment abnormalities. Labs notable for no leukocytosis, hemoglobin normal, platelet count is decreased. No clear ABG abnormality to explain symptoms. Creatinine is mildly elevated with elevated glucose. Lactic acid elevated as well as abnormal liver enzymes. Initial troponin mildly elevated but with repeat pending. Ammonia level is markedly elevated which likely explain symptoms. Chest x-ray with no lobar consolidation or pneumothorax. CT head negative for acute intracranial pathology. CT chest abdomen pelvis without evidence of infection or other acute pathology, liver cirrhosis is present. Patient treated in the emergency department with antiemetic, lactulose, IV fluids, and initially broad-spectrum antibiotics empirically for concern over infectious etiology given clinical presentation. Initially Cardene had been ordered however patient's blood pressure spontaneously improved prior to administration. Most likely etiology of patient's symptoms is likely multifactorial including hepatic encephalopathy. The results of ED evaluation were discussed with the patient's including plan for admission due to requirement for level of care not available if discharged to prevent significant worsening/deterioration. Patient's agreeable with plan. Discussed with hospitalist service who was agreeable to admit patient. Medical Records I reviewed the patient's medical records. Lab Data I reviewed the patient's lab results. 03/06/22 01:02 03/06/22 01:39 Radiology Impressions Chest X-Ray 03/06/22 01:07 IMPRESSION: 1. Mild lower lung predominant ground-glass opacity bilaterally. Possible pulmonary edema. 2. Cardiac enlargement. Head CT 03/06/22 01:07 IMPRESSION: No acute intracranial abnormality. Chest/Abdomen/Pelvis CT 03/06/22 04:35 IMPRESSION: Negative CT chest. No acute pathology. IMPRESSION: 1. Liver cirrhosis. 2. Negative for focal acute abdominopelvic pathology. Gallbladder Ultrasound 03/06/22 05:52 IMPRESSION: 1. Enlarged heterogeneous liver with changes of cirrhosis. There are 2 masses within the liver. The smaller mass within the LEFT lobe is probably a cyst. Favor the more solid-appearing mass in the RIGHT lobe adjacent to the gallbladder may be hepatic steatosis. Recommend follow-up ultrasound in 3 months. 2. Cholelithiasis without acute cholecystitis. Abdomen Ultrasound 03/06/22 10:44 IMPRESSION: No peritoneal ascites. Laboratory Results WBC 6.0 10^3/uL (4.0-10.0) 03/06/22 01:02 RBC 4.31 10^6/uL (4.1-5.3) 03/06/22 01:02 Hgb 12.1 g/dL (11.5-15.3) 03/06/22 01:02 Hct 37.8 % (37.0-47.0) 03/06/22 01:02 MCV 87.7 fl (81-99) 03/06/22 01:02 MCH 28.1 pg (28.0-34.0) 03/06/22 01:02 MCHC 32.0 g/dL (30.0-36.0) 03/06/22 01:02 RDW 15.4 % (12.1-15.1) H 03/06/22 01:02 Plt Count 129 10^3/cmm (130-400) L 03/06/22 01:02 MPV 12.5 fL (7.4-10.4) H 03/06/22 01:02 Neut % (Auto) 69.7 % 03/06/22 01:02 Lymph % (Auto) 18.3 % 03/06/22 01:02 [place] % (Auto) 9.2 % 03/06/22 01:02 Eos % (Auto) 1.7 % 03/06/22 01:02 Baso % (Auto) 0.8 % 03/06/22 01:02 Neut # (Auto) 4.14 10^3/uL (1.8-7.7) 03/06/22 01:02 Lymph # (Auto) 1.1 10^3/uL (0.8-4.8) 03/06/22 01:02 [place] # (Auto) 0.6 10^3/uL (0.2-0.9) 03/06/22 01:02 Eos # (Auto) 0.1 10^3/uL (0.0-0.8) 03/06/22 01:02 Baso # (Auto) 0.1 10^3/uL (0.0-0.1) 03/06/22 01:02 Nucleated RBC % (auto) 0 % 03/06/22 01:02 Nucleated RBCs # 0.0 /100WBC 03/06/22 01:02 PT 14.40 SECONDS (12.1-14.9) 03/06/22 01:37 INR 1.08 (0.8-1.2) 03/06/22 01:37 APTT 26.8 SECONDS (23.9-36.7) 03/06/22 01:37 Specimen Type Arterial 03/06/22 01:30 Sample Site Brachial, left 03/06/22 01:30 ABG pH 7.45 (7.35-7.45) 03/06/22 01:30 ABG pCO2 28.3 mmHg (35-45) L 03/06/22 01:30 ABG pO2 77.4 mmHg (80.0-100.0) L 03/06/22 01:30 ABG HCO3 19.5 mmol/L (22-26) L 03/06/22 01:30 ABG Base Excess -3.3 mmol/L (-2.0-2.0) L 03/06/22 01:30 Mike Test Pos 03/06/22 01:30 Hematocrit 41.6 % (37-47) 03/06/22 01:30 O2 Delivery Device Nc 03/06/22 01:30 O2 Liters/Min 2.0 % 03/06/22 01:30 FiO2 28.0 % 03/06/22 01:30 Pricing Intern ID Alewe 03/06/22 01:30 Sodium 138 mmol/L (136-145) 03/06/22 01:39 Potassium 5.1 mmol/L (3.5-5.1) 03/06/22 01:39 Chloride 101 mmol/L (98-107) 03/06/22 01:39 Carbon Dioxide 20 mmol/L (22-29) L 03/06/22 01:39 Anion Gap 22.1 (5-19) H 03/06/22 01:39 BUN 32 mg/dL (6-20) H 03/06/22 01:39 Creatinine 1.2 mg/dL (0.5-0.9) H 03/06/22 01:39 GFR Calculation 46.1 mL/min (90-130) L 03/06/22 01:39 Glucose 294 mg/dL (65-115) H 03/06/22 01:39 POC Glucose 276 mg/dL (70-110) H 03/06/22 01:15 Calculated Osmolality 304 mOsm/kg (285-295) H 03/06/22 01:39 Lactate 4.8 mmol/L (0.5-2.2) H* 03/06/22 01:37 Calcium 9.5 mg/dL (8.5-10.5) 03/06/22 01:39 Magnesium 2.3 mg/dL (1.7-2.3) 03/06/22 01:39 Total Bilirubin 2.0 mg/dL (0.15-1.2) H 03/06/22 01:39 AST 46 U/L (0-32) H 03/06/22 01:39 ALT 28 U/L (0-33) 03/06/22 01:39 Alkaline Phosphatase 191 U/L (35-105) H 03/06/22 01:39 Ammonia 314 umol/L (11-51) H 03/06/22 01:37 Troponin T Baseline 69 ng/L (0-10) H 03/06/22 01:37 C-Reactive Protein 4.3 mg/L (0.0-4.9) 03/06/22 01:39 NT-Pro-B Natriuret Pep 206 pg/mL (0-125) H 03/06/22 01:39 Total Protein 9.2 g/dL (6.6-8.7) H 03/06/22 01:39 Albumin 4.4 g/dL (3.5-5.2) 03/06/22 01:39 Globulin 4.8 g/dL (1.3-4.6) H 03/06/22 01:39 Procalcitonin 0.22 ng/mL (0-0.5) 03/06/22 01:39 TSH 1.32 uIU/mL (0.27-4.20) 03/06/22 01:39 Urine Color Yellow (Yellow) 03/06/22 02:00 Urine Appearance Clear (CLEAR) 03/06/22 02:00 Urine pH 7 (5-7) 03/06/22 02:00 Ur Specific [place] 1.015 (1.005-1.030) 03/06/22 02:00 Urine Protein 3+ (Negative) H 03/06/22 02:00 Urine Glucose (UA) 4+ (Normal) H 03/06/22 02:00 Urine Ketones Negative (Negative) 03/06/22 02:00 Urine Blood 2+ (Negative) H 03/06/22 02:00 Urine Nitrate Negative (Negative) 03/06/22 02:00 Urine Bilirubin Neg (Negative) 03/06/22 02:00 Urine Urobilinogen Norm mg/dL (Negative) 03/06/22 02:00 Ur Leukocyte Esterase Negative (Negative) 03/06/22 02:00 Urine RBC 5-10 /hpf (0-2) H 03/06/22 02:00 Urine WBC 0-4 /hpf (0-5) H 03/06/22 02:00 Ur Squamous Epith Cells 0-4 /hpf (0-5) H 03/06/22 02:00 Ur Renal Epithelial Cell 0-2 /hpf 03/06/22 02:00 Amorphous Sediment Not Reportable 03/06/22 02:00 Urine Bacteria None /hpf (NONE) 03/06/22 02:00 Urine Mucus Trace /hpf 03/06/22 02:00 Salicylates < 0.3 mg/dL (3-10) L 03/06/22 01:39 Urine Opiates Screen Positive ng/mL (Negative) H 03/06/22 02:00 Acetaminophen < 5.0 ug/mL (10-30) L 03/06/22 01:39 Ur Barbiturates Screen Negative ng/mL (Negative) 03/06/22 02:00 Ur Phencyclidine Scrn Negative ng/mL (Negative) 03/06/22 02:00 Ur Amphetamines Screen Negative ng/mL (Negative) 03/06/22 02:00 U Benzodiazepines Scrn Negative ng/mL (Negative) 03/06/22 02:00 Urine Cocaine Screen Negative ng/mL (Negative) 03/06/22 02:00 U Marijuana (THC) Screen Negative ng/mL (Negative) 03/06/22 02:00 Serum Ketones Negative (Negative) 03/06/22 01:39 Coronavirus 229E (PCR) Not detected (NOT DETECT) 03/06/22 01:30 SARS-CoV-2 (PCR) Not detected (NOT DETECT) 03/06/22 01:30 Critical Care Time Critical Care Time: Critical Care Time: Yes Total Critical Care Time: 35 Attestation: Due to a high probability of clinically significant, possibly life threatening deterioration, the patient required my highest level of attention and preparedness to intervene emergently and I personally spent this critical care time directly and personally managing the patient. This critical care time included obtaining a history; examining the patient; pulse oximetry; ordering and review of laboratory and imaging studies; arranging urgent treatment with development of a management plan; evaluation of patient's response to treatment; frequent reassessment; and, discussions with other providers as applicable. It was exclusive of separately billable procedures. 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
--- NOTE | 2022-03-06 01:07 | XRR_ITS ---
PROCEDURE INFORMATION: Exam: XR Chest Exam date and time: 03/06/2022 1:10 AM Age: 56 years old Clinical indication: Prior surgery; Surgery type: Cabg; Patient HX: Brought via ambulance for AMS. Possible drug overdose. Patient unresponsive. Hypertensive 230 systolic on monitor. TECHNIQUE: Imaging protocol: Radiologic exam of the chest. Views: 1 view. COMPARISON: CT chest wo con [id number] 07/22/2021 3:57 PM FINDINGS: Tubes, catheters and devices: There is a dual-lead AICD with leads positioned in the right atrium and right ventricle. Lungs: There is no consolidation. There is mild ground-glass opacity in the lower lungs bilaterally. Pleural spaces: There is no pleural effusion or pneumothorax. Heart/Mediastinum: There is mild enlargement of the cardiac silhouette. Bones/joints: Sternal wires are present. There is no displacement to suggest sternal dehiscence. No acute fracture. XR/XR chest 1V portable [id number] IMPRESSION: 1. Mild lower lung predominant ground-glass opacity bilaterally. Possible pulmonary edema. 2. Cardiac enlargement.
--- NOTE | 2022-03-06 01:07 | CTR_ITS ---
PROCEDURE INFORMATION: Exam: CT Head Without Contrast Exam date and time: 03/06/2022 1:17 AM Age: 56 years old Clinical indication: Altered mental status/memory loss; Confusion or disorientation; Prior surgery; Surgery type: Pituitary gland tumor resection; Patient HX: Arrival via EMS for AMS from possible drug overdose. Patient unresponsive and hypertensive 230 systolic. TECHNIQUE: Imaging protocol: Computed tomography of the head without contrast. Radiation optimization: All CT scans at this facility use at least one of these dose optimization techniques: automated exposure control; mA and/or kV adjustment per patient size (includes targeted exams where dose is matched to clinical indication); or iterative reconstruction. COMPARISON: CT head wo/w con [id number] 03/21/2015 4:04 PM RADIATION DOSE METRICS: Total DLP (mGy-cm): 595.88 FINDINGS: Brain: The brain is unremarkable. There is no mass effect or significant white matter disease. There is no acute intracranial hemorrhage. Cerebral ventricles: There is no significant ventricular dilation. The basal cisterns are unremarkable. Paranasal sinuses: The paranasal sinuses are clear. Mastoid air cells: The mastoid air cells are clear. Bones/joints: The calvarium is intact. Soft tissues: Unremarkable. CT/CT head wo con* [id number] IMPRESSION: No acute intracranial abnormality.
--- NOTE | 2022-03-06 01:15 | PC.NURSE ---
FSBS taken and reported to Dr. Gamboa
[2022-03-06 01:16] LABS: Basophils # 0.1 10^3/uL (0.0-0.1); Basophils % 0.8 %; Eosinophils # 0.1 10^3/uL (0.0-0.8); Eosinophils % 1.7 %; Hematocrit 37.8 % (37.0-47.0); Hemoglobin 12.1 g/dL (11.5-15.3); Lymphocytes # 1.1 10^3/uL (0.8-4.8); Lymphocytes % 18.3 %; Mean Corpuscular Hemoglobin 28.1 pg (28.0-34.0); Mean Corpuscular Volume 87.7 fl (81-99); Mean Platelet Volume 12.5 fL (7.4-10.4); Monocytes # 0.6 10^3/uL (0.2-0.9); Monocytes % 9.2 %; Neutrophils # 4.14 10^3/uL (1.8-7.7); Neutrophils % 69.7 %; Nucleated Red Blood Cells % 0 %; Platelet Count 129 10^3/cmm (130-400); Red Blood Count 4.31 10^6/uL (4.1-5.3); Red Cell Distribution Width 15.4 % (12.1-15.1)
[2022-03-06 01:17] LABS: Glucose Point of Care 276 mg/dL (70-110)
[2022-03-06] MEDS: ondansetron 2 mg/ML SDV 2 mL 4 MG IVP (01:35)
[2022-03-06 01:41] LABS: ABG PCO2 28.3 mmHg (35-45); ABG PH Result 7.45 (7.35-7.45); Arterial Blood Gas Hematocrit 41.6 % (37-47); Base Excess ABG -3.3 mmol/L (-2.0-2.0); Blood Gas Allen Test Pos; Blood Gas Sample Site Brachial, left; Blood Gas Sample Type Arterial; HCO3 ABG 19.5 mmol/L (22-26); Oxygen Device NC; PO2 ABG 77.4 mmHg (80.0-100.0)
--- NOTE | 2022-03-06 01:44 | ECG_ITS ---
[facility] Test Date: 2022-03-06 Pat Name: Jacquelin Whiteside Department: Room: Gender: Female [place]: : 1965 Requested By: Tim Reyna Order Number: [id number] Boom MD: Praneeth Joseph M.D. Measurements Intervals [place] Rate: 66 P: 107 SD: 252 QRS: 30 QRSD: 106 T: 67 QT: 431 QTc: 453 Interpretive Statements ELECTRONIC ATRIAL PACEMAKER NONSPECIFIC ST & T-WAVE ABNORMALITY ABNORMAL RHYTHM ECG Compared to ECG 08/21/2021 06:26:08 Myocardial infarct finding no longer present Possible ischemia no longer present T-wave abnormality still present Baseline artifact Electronically Signed On 03-06-2022 20:40:51 [employer] by Praneeth Joseph M.D. [id number]
[2022-03-06 02:08] LABS: Ketone (Acetest) Serum Negative (Negative)
[2022-03-06 02:08] LABS: Protein Urine 3+ (Negative); Specific Gravity, Urine 1.015 (1.005-1.030); Urine Appearance Clear (CLEAR); Urine Color Yellow (Yellow); pH Urine 7 (5-7)
[2022-03-06 02:09] LABS: Add Urine Microscopic? YES; Bilirubin Urine Neg (Negative); Blood Urine 2+ (Negative); Glucose Urine UA 4+ (Normal); Ketones Urine Negative (Negative); Leukocyte Esterase Urine Negative (Negative); Nitrate Urine Negative (Negative); Urobilinogen Urine Norm (Negative)
[2022-03-06 02:16] LABS: Amphetamines Screen Urine Negative (Negative); Barbiturates Screen Urine Negative (Negative); Benzodiazepines Screen Urine Negative (Negative); Cocaine Screen Urine Negative (Negative); Opiate Screen Urine Positive (Negative); PCP Screen Urine Negative (Negative); THC Screen Urine Negative (Negative)
[2022-03-06 02:17] LABS: Ammonia 314 umol/L (11-51)
[2022-03-06 02:18] LABS: Troponin(5th) Baseline 69 ng/L (0-10)
[2022-03-06 02:29] LABS: NT Pro B Type Natriuretic Pept 206 pg/mL (0-125); Procalcitonin 0.22 ng/mL (0-0.5); Thyroid Stimulating Hormone 1.32 uIU/mL (0.27-4.20)
[2022-03-06 02:32] LABS: Lactate (Lactic Acid level) 4.8 mmol/L (0.5-2.2)
[2022-03-06 02:35] LABS: Add Urine Culture? No; Mucus Urine TRACE /hpf; Renal Epithelial Cells Urine 0-2 /hpf; Squamous Epithelial Cell Urine 0-4 /hpf (0-5); WBC Urine 0-4 /hpf (0-5)
[2022-03-06 02:40] LABS: Alanine Aminotransferase 28 U/L (0-33); Albumin Level 4.4 g/dL (3.5-5.2); Alkaline Phosphatase 191 U/L (35-105); Anion Gap 22.1 (5-19); Aspartate Amino Transferase 46 U/L (0-32); Blood Urea Nitrogen 32 mg/dL (6-20); C Reactive Protein 4.3 mg/L (0.0-4.9); Calcium 9.5 mg/dL (8.5-10.5); Carbon Dioxide 20 mmol/L (22-29); Chloride 101 mmol/L (98-107); Globulin 4.8 g/dL (1.3-4.6); Glomerular Filtration Rate 46.1 mL/min (90-130); Glucose 294 mg/dL (65-115); Magnesium 2.3 mg/dL (1.7-2.3); Osmolality Calculated 304 mOsm/kg (285-295); Potassium 5.1 mmol/L (3.5-5.1); Sodium 138 mmol/L (136-145); Total Protein 9.2 g/dL (6.6-8.7)
[2022-03-06 02:47] LABS: Acetaminophen < 5.0 ug/mL (10-30); Salicylate < 0.3 mg/dL (3-10)
[2022-03-06 02:49] LABS: INR 1.08 (0.8-1.2); Partial Thromboplastin Time 26.8 SECONDS (23.9-36.7)
[2022-03-06] MEDS: cefepime 2,000 MG in sodium chloride 0.9% (plus) 50 ML 100 MG IV (03:11)
[2022-03-06 03:28] LABS: Adenovirus Not Detected (NOT DETECT); Chlamydia Pneumoniae Not Detected (NOT DETECT); Coronavirus 229E,HKU1,NL63,OC4 Not Detected (NOT DETECT); Human Metapneumovirus Not Detected (NOT DETECT); Human Rhinovirus/Enterovirus Not Detected (NOT DETECT); Influenza A Not Detected (NOT DETECT); Influenza A H1 Not Detected (NOT DETECT); Influenza A H1-2009 Not Detected (NOT DETECT); Influenza A H3 Not Detected (NOT DETECT); Influenza B Not Detected (NOT DETECT); Mycoplasma Pneumoniae Not Detected (NOT DETECT); Parainfluenza Virus Type 1 Not Detected (NOT DETECT); Parainfluenza Virus Type 2 Not Detected (NOT DETECT); Parainfluenza Virus Type 3 Not Detected (NOT DETECT); Parainfluenza Virus Type 4 Not Detected (NOT DETECT); Respiratory Syncytial Virus A Not Detected (NOT DETECT); Respiratory Syncytial Virus B Not Detected (NOT DETECT); SARS-COV-2 Not Detected (NOT DETECT)
[2022-03-06] MEDS: lactulose oral liq 20 gm/30 mL UDC 200 GM PR (03:33)
--- NOTE | 2022-03-06 04:31 | PC.NURSE ---
Incontinence care completed. Pt had large BM. Rodas cath care completed. Bedding changed.
--- NOTE | 2022-03-06 04:35 | CTR_ITS ---
PROCEDURE INFORMATION: Exam: CT Chest Without Contrast; Diagnostic Exam date and time: 03/06/2022 4:45 AM Age: 56 years old Clinical indication: Other: Elevated lactate/hematuria; Shortness of breath; Prior surgery; Surgery type: Cabg. Coronary stent. Hysterectomy. Csection. Patient HX: SOB. Possible pulmonary edema noted on cxr. Lactate of 4.8 with hematuria. ; Additional info: AMS TECHNIQUE: Imaging protocol: Diagnostic computed tomography of the chest without contrast. Radiation optimization: All CT scans at this facility use at least one of these dose optimization techniques: automated exposure control; mA and/or kV adjustment per patient size (includes targeted exams where dose is matched to clinical indication); or iterative reconstruction. COMPARISON: CT chest wo con [id number] 07/22/2021 3:57 PM RADIATION DOSE METRICS: Total DLP (mGy-cm): 1148.58 FINDINGS: Tubes, catheters and devices: Left chest ICD. Thyroid: Symmetric thyroid lobes. Lungs: Left lower lobe calcified granuloma. Negative for pulmonary consolidation. Negative for central airway obstruction. No peripheral honeycombing. Pleural spaces: Unremarkable. No pneumothorax. No pleural effusion. Heart: Mildly dilated cardiac chambers. Negative for pericardial effusion. Coronary arteries: CABG. Moderate coronary artery calcifications. Mediastinal space: Unremarkable thoracic esophagus. Lymph nodes: Unremarkable. No enlarged lymph nodes. Vasculature: Unremarkable. No aortic aneurysm. Bones/joints: Unremarkable. No acute fracture. Soft tissues: Unremarkable. PROCEDURE INFORMATION: Exam: CT Abdomen And Pelvis Without Contrast Exam date and time: 03/06/2022 4:45 AM Age: 56 years old Clinical indication: Other: Elevated lactate/hematuria; Shortness of breath; Prior surgery; Surgery type: Cabg. Coronary stent. Hysterectomy. Csection. Patient HX: SOB. Possible pulmonary edema noted on cxr. Lactate of 4.8 with hematuria. ; Additional info: AMS TECHNIQUE: Imaging protocol: Computed tomography of the abdomen and pelvis without contrast. Radiation optimization: All CT scans at this facility use at least one of these dose optimization techniques: automated exposure control; mA and/or kV adjustment per patient size (includes targeted exams where dose is matched to clinical indication); or iterative reconstruction. COMPARISON: CT abdomen pelvis w con* [id number] 06/24/2018 4:15 PM RADIATION DOSE METRICS: Total DLP (mGy-cm): 1148.58 FINDINGS: Liver: Nodular liver contour. Gallbladder and bile ducts: Cholelithiasis. Negative for inflammatory wall thickening. Negative for biliary system dilation. Pancreas: Normal. No ductal dilation. Spleen: Normal. No splenomegaly. Adrenal glands: Normal. No mass. Kidneys and ureters: Normal. No hydronephrosis. Stomach and bowel: Unremarkable. No obstruction. No acute inflammatory mucosal thickening. Negative for perforation. Appendix: No evidence of appendicitis. Intraperitoneal space: Unremarkable. No free air. No significant fluid collection. Vasculature: Recanalized umbilical vein. Negative for abdominal aortic aneurysm. Lymph nodes: Unremarkable. No enlarged lymph nodes. Urinary bladder: Decompressed bladder with Rodas catheter present. Bladder wall clearly assessed. Reproductive: Hysterectomy. Bones/joints: L5 pars defects. Grade 1 L5-S1 spondylolisthesis. Soft tissues: Unremarkable. CT/CT chest abdpel [id number] IMPRESSION: Negative CT chest. No acute pathology. IMPRESSION: 1. Liver cirrhosis. 2. Negative for focal acute abdominopelvic pathology.
--- NOTE | 2022-03-06 04:57 | PM.HP ---
Providers/Chief Complaint Admitting Physician: Claudio Haque MD Primary Care Provider: Sohail Oliva MD Chief Complaint: AMS History of Present Illness Jacquelin Whiteside is a 56 year old female with a past medical history of insulin-dependent type 2 diabetes mellitus, hypertension, chronic pain on morphine, history of nonalcoholic fatty liver disease, history of esophageal varices requiring banding, history of pacemaker placement, history of atrial fibrillation not on anticoagulation due to concerns for bleeding, history of CABG x2, CAD, history of GI bleed she was taken off anticoagulation, heart failure with preserved ejection fraction who presents to [facility] due to progressive increased confusion, increased lethargic, decreased appetite, currently patient's alert, but she falls back asleep she opens her eyes to sternal rub, but does not follow commands, she is normotensive, currently on BiPAP, patient's is at bedside, most history was provided by , he tells me that for the last few days, she has become more confused, more lethargic at times, less responsive, today her symptoms acutely worsen, becoming substantially more confused, at times not responding, difficult to arouse, she has not eaten all day. Denies any falls. She is on morphine, denies her taking more medications as prescribed. He does tell me that she has nonalcoholic fatty liver disease, she is supposed to be taking lactulose every day, but she does not take it and she poops every few days, she has not really had any complaints, no chest pain complaints, no shortness of breath complaints no pain complaints of abdominal pain complaints, she has not been sick recently. No alcohol consumption. No drug use. Review of Systems General: Reports: ROS unobtainable due to mental status Medications/Allergies Home Medications Medication Instructions Recorded Confirmed Last Taken Type lancing device with lancets kit #1 ea 03/14/20 11/27/21 Unknown Rx lancets 33 gauge (BD Ultra Fine #100 ea 05/15/20 11/27/21 Unknown Rx Lancets) cetirizine 10 mg tablet 10 mg PO DAILY PRN Allergy Symptoms 10/23/20 11/27/21 08/19/21 06:30 History blood-glucose meter #1 ea 11/05/20 11/27/21 Unknown Rx tizanidine 4 mg capsule 4 mg PO DAILY PRN Spasms 03/13/21 11/27/21 Unknown History blood sugar diagnostic (Blood #100 ea 07/23/21 11/27/21 Unknown Rx Glucose Test strips) pen needle, diabetic 31 gauge x #150 ea 07/23/21 11/27/21 Unknown Rx 5/16 (BD Ultra-Fine Short Pen Needle) ferrous gluconate 324 mg (37.5 mg 324 mg PO BIDWM #60 tabs 07/24/21 11/27/21 08/19/21 06:30 Rx iron) tablet lidocaine-prilocaine 2.5 %-2.5 % 1 applic topical .3-4 times daily 10/23/21 11/27/21 Unknown Rx topical cream #240 grams insulin glargine 100 unit/mL (3 45 unit (0.45 mL) SUBCUT BID #15 mL 12/05/21 Unknown Rx mL) subcutaneous pen (Lantus Solostar U-100 Insulin) insulin lispro 100 unit/mL See Rx Instructions .Route 12/05/21 Unknown Rx subcutaneous pen .COMPLEX #45 mL isosorbide mononitrate 60 mg 60 mg PO DAILY #90 tabs 12/18/21 Unknown Rx tablet,extended release 24 hr nitroglycerin 0.4 mg sublingual 0.4 mg sublingual DIRECTED PRN 12/18/21 Unknown Rx tablet (Nitrostat) Chest Pain #30 tabs celecoxib 200 mg capsule 200 mg PO BID #180 caps 12/19/21 Unknown Rx furosemide 40 mg tablet (Lasix) 60 mg PO BID #270 tabs 12/19/21 Unknown Rx lactulose 10 gram/15 mL oral 10 g (15 mL) PO DAILY #473 mL 12/19/21 Unknown Rx solution potassium chloride 20 mEq 20 meq PO TID #270 tabs 12/19/21 Unknown Rx tablet,extended release pantoprazole 40 mg tablet,delayed See Rx Instructions .Route 12/23/21 Unknown Rx release .COMPLEX #270 tabs irbesartan 75 mg tablet 75 mg PO DAILY #90 tabs 12/27/21 Unknown Rx morphine 60 mg tablet,extended 60 mg PO Q12H 1 month #60 tabs 12/30/21 Unknown Rx release nadolol 40 mg tablet 40 mg PO DAILY #90 tabs 12/30/21 Unknown Rx Allergies Allergy/AdvReac Type Severity Reaction Status Date / Time insulin degludec Allergy ALGY-Difficulty Verified 11/27/21 13:57 [From Tresiba FlexTouch Breathing U-100] levofloxacin Allergy SWELLING Verified 11/27/21 13:57 promethazine Allergy confusion Verified 11/27/21 13:57 duloxetine AdvReac ADR-Swelling Verified 11/27/21 13:57 of the Eye PFSH Acute PFSH: Medical History Atrial fibrillation CAD (coronary artery disease) Carpal tunnel syndrome Diabetes mellitus Essential hypertension Hepatomegaly History of KS (myocardial infarction) (~2006) Hyperlipidemia Migraine Neuropathy No pertinent past medical history neghx: thyroid,dvt/pe PCP: Dr. Oliva Pacemaker (~2012) Splenomegaly Sporadic pituitary adenoma Surgical History S/P arterial stent x 3; approximately in 2012, 2013 - [facility] S/P brain surgery (~2005) Removal of brain tumor- benign; in the pituitary gland S/P CABG x 2 in 2006 S/P section performed in 1990, 1992 S/P hysterectomy (~1992) converted from C/Section to NAMAN,bilateral salpingectomy, probable ovaries remain. Most likely performed by Dr. Roper. Vulvar abscess (~05/01/15) I&D of left labia majora abscess; performed by [facility]. Family History Brother Stroke Diabetes Mother , 72 Diabetes Heart disease Hypertension Stroke Father , 68 Diabetes Heart disease Hypertension Stroke Grandmother Diabetes Maternal Denies family history of Colon cancer Ovarian cancer Hypercholesteremia Breast cancer Uterine cancer Thyroid disease Social History Smoking and tobacco status: former smoker (20+ years) Alcohol intake: never Caregiver/support person: Yes Lives independently: Yes Household members: spouse Housing: House Marital status: Vitals/I&O/Wt Last Vital Signs Temp 97.4 F L 03/06/22 01:12 Pulse 62 03/06/22 04:04 Resp 18 03/06/22 03:04 BP 147/97 03/06/22 04:04 Pulse Ox 99 03/06/22 04:04 O2 Del Method 03/06/22 04:04 FiO2 40 03/06/22 01:54 Weight last 48 hrs Weight 104.326 kg Physical Exam Const: COMMON NORMALS: no acute distress EXAM LIMITATIONS: altered mental status ORIENTATION/CONSCIOUSNESS: Yes awake and Yes confused; not oriented to person, not oriented to place and not oriented to time Eye: COMMON NORMALS: Equal, round and reactive pupils present Neck/C-Spine: COMMON NORMALS: full ROM and no lymphadenopathy Lymph: LYMPHATIC: no lymphadenopathy noted Chest: COMMONS NORMALS: normal inspection of the chest Resp: COMMON NORMALS: normal respiratory effort, No retractions, No use of accessory muscles and clear to auscultation bilaterally AUSCULTATION: clear to auscultation bilaterally Cardio: COMMON NORMALS: regular rate, regular rhythm, S1 normal heart sound present and S2 normal heart sound present RATE: regular rate RHYTHM: regular rhythm HEART SOUNDS: S1 normal heart sound present and S2 normal heart sound present GI: OTHER: Abdomen is soft, distended, decreased bowel sounds, no guarding, no rebound, no rigidity, no tenderness Back/Pelvis: COMMON NORMALS: no CVA tenderness Extremity: COMMON NORMALS: no pedal edema Neuro: OTHER: No facial droop noted, neurologic testing difficult as she has altered mental status, does not follow commands, bilateral upper and lower extremities, fall to the bed, are not held up against gravity, does withdraw from pain, Babinski's upwards bilaterally Skin: NARRATIVE SKIN EXAM: Shiny induration of bilateral shins Urinary Catheter Management: Rodas: Cath Placed During This Visit: yes Urinary Catheter Date of Insertion: 03/06/22 Urinary Catheter Time of Insertion: 04:30 Data 03/06/22 01:02 03/06/22 01:39 Micro: Microbiology 03/06/22 01:39 Blood Culture - Preliminary Blood SPECIMEN COLLECTED 03/06/22 01:37 Blood Culture - Preliminary Blood SPECIMEN COLLECTED A&P Assessment and plan (1) Acute hepatic encephalopathy: (2) Acute alteration in mental status: (3) Acute respiratory distress: (4) Thrombocytopenia: (5) CKD (chronic kidney disease): (6) Lactic acidosis: (7) Atrial fibrillation: Qualifiers: Atrial fibrillation type: paroxysmal Qualified Code(s): I48.0 - Paroxysmal atrial fibrillation (8) Diabetes mellitus: (9) Hyperlipidemia: (10) Pacemaker: (11) (HFpEF) heart failure with preserved ejection fraction: Plan Altered mental status -Likely secondary to hyperammonemia -Continue lactulose 200 gm rectal every 6 hours -Recheck ammonia levels at 9, if they continue to be high we might have to increase the frequency to every 4 hours -Place rectal tube -Neurochecks, NIH stroke scale, aspiration precaution, seizure precautions -Keep n.p.o. -Gentle IV hydration -Full code -SCDs for DVT prophylaxis, anticoagulation relatively contraindicated given history of GI bleed Lactic acidosis -Ketones within normal limits, -Possibly secondary to dehydration -Possibly secondary to hyperammonemia -Pro-Phu, CRP unremarkable -However given abdominal distention, now with hyperammonemia we will do CT of the abdomen Acute hypoxic respiratory failure -ABG showed a pH 7.45, PO2 77.4, PCO2 20.3 -Can continue BiPAP as needed -CT of the chest Hyperammonemia -History of nonalcoholic fatty liver disease -Abdominal distention, will do CT scan abdomen pelvis -Due to concerns for possible SBP we will start on Zosyn, await CT scan abdomen pelvis results DAMARIS, creatinine 1.2 IV fluids Type 2 diabetes mellitus, low-dose sliding scale Chronic thrombocytopenia, likely related to nonalcoholic fatty liver disease Atrial fibrillation, monitor CAD status post CABG, will do troponin series Chest x-ray for groundglass opacities bilaterally, will do CT of the chest Attestations Medical Necessity Statement*: Patient requires hospitalization, inpatient, greater than 2 midnights, for altered mental status, hyperammonemia, dehydration, respiratory failure Coding Level of Care Code Acute [place] [facility] for [facility] Fwd Diagnoses Acute hepatic encephalopathy K76.82 Acute alteration in mental status R41.82 Acute respiratory distress R06.03 Thrombocytopenia D69.6 CKD (chronic kidney disease) N18.9 Lactic acidosis E87.20 Atrial fibrillation I48.0 Atrial fibrillation type: paroxysmal Diabetes mellitus E11.9 Hyperlipidemia E78.5 Pacemaker Z95.0 (HFpEF) heart failure with preserved ejection fraction I50.30
[2022-03-06] MEDS: sodium chloride 0.9% 1,000 ML 75 ML IV (05:40)
[2022-03-06] MEDS: pantoprazole 40 mg SDV IVP ×2 (05:52→17:45)
--- NOTE | 2022-03-06 05:52 | US_ITS ---
WS: [id number] RIGHT UPPER QUADRANT ULTRASOUND HISTORY: ams COMPARISON: 02/19/2011, 03/06/2022 CT. Liver: 22.9 cm in length. Markedly enlarged liver. Nodular coarse appearance of the liver. The surfac e is lobulated consistent with cirrhosis. Hypoechoic nodule LEFT lobe measures 1 x 9 x 9 mm. Nonspeci fic may be a small cyst on a background of hepatic steatosis. Additional very vague hypoechoic mass m easuring 3.3 x 2.8 x 2.0 cm adjacent to the gallbladder. Portal Vein: Normal hepatopetal flow with monophasic waveform. Gallbladder: Normally distended gallbladder with stones. There is also mildly echogenic wall which is probably related to hepatocellular disease. CBD: 0.4 cm Pancreas: Poorly visualized. Right kidney: 10.2 cm in length. Normal size and echogenicity. No hydronephrosis or mass. Aorta and IVC: Unremarkable abdominal aorta and IVC. No ascites. US/US gall bladder [id number] IMPRESSION: 1. Enlarged heterogeneous liver with changes of cirrhosis. There are 2 masses within the liver. The smaller mass within the LEFT lobe is probably a cyst. Fav or the more solid-appearing mass in the RIGHT lobe adjacent to the gallbladder may be hepatic steatosis. Recommend follow-up ultrasound in 3 months. 2. Cholelithiasis without acute cholecystitis.
[2022-03-06] MEDS: enoxaparin 40 mg/0.4 mL Syringe SUBCUT (05:56)
[2022-03-06] MEDS: piperacillin-tazobactam 3.375 GM in sodium chloride 0.9% (plus) 50 ML IV (05:56)
--- NOTE | 2022-03-06 06:36 | PC.NURSE ---
Pt arrived from ER via jack @0456 on continuos monitoring. Pt switched from 6L NC to BIPAP. Skin tear noted on R. FA. NIH stroke scale results @0506 may be inaccurate. Pt is very lethargic, AMS, unable to follow commands. Pt is unable to keep eyes open for more than a couple seconds. Pt is not speaking and will not nod head to questions.
--- NOTE | 2022-03-06 07:14 | ECG_ITS ---
[facility] Test Date: 2022-03-06 Pat Name: Jacquelin Whiteside Department: Room: [facility] Gender: Female Locks Tender: : 1965 Requested By: Tim Reyna Order Number: [id number] Boom MD: Praneeth Joseph M.D. Measurements Intervals [place] Rate: 60 P: 105 ME: 275 QRS: 41 QRSD: 108 T: 83 QT: 512 QTc: 512 Interpretive Statements ELECTRONIC ATRIAL PACEMAKER SEPTAL MYOCARDIAL INFARCTION , PROBABLY RECENT [40+ ms Q WAVE IN V1/V2] ACUTE PR Compared to ECG 03/06/2022 01:44:11 Myocardial infarct finding now present T-wave abnormality no longer present Electronically Signed On 03-06-2022 20:48:02 PASTA MAKER by Praneeth Joseph M.D. [id number]
[2022-03-06 07:19] LABS: Procalcitonin 0.41 ng/mL (0-0.5); Thyroid Stimulating Hormone 0.83 uIU/mL (0.27-4.20)
[2022-03-06 07:24] LABS: Troponin 5 2HR 507.7 ng/L (0-10); Troponin 5 2HR Delta 438.7 ABS# (0-10)
[2022-03-06 07:30] LABS: C Reactive Protein 3.7 mg/L (0.0-4.9); Cortisol Random 38.97 ug/dL (2.47-19.5); Gamma Glutamyl Transferase 172 U/L (5-36)
[2022-03-06] MEDS: insulin lispro 100 unit/1 mL SUBCUT ×3 (08:08→17:45)
--- NOTE | 2022-03-06 08:10 | P.MISC_ITS ---
Miscellaneous Note Note: Patient examined in the ICU, H&P reviewed However positive asterixis She is awake and alert able to tell me name of her As per the she is much more clear in her thinking Currently on BiPAP Diet will be advanced today She can be transferred to [facility] S1, S2 Abdomen soft, nontender Distended ascites positive Legs with mild edema stating that they do not see any atomic process engineer, I recommended him to at least have an expert opinion on her CASTANON treatment For now continuing senna S, lactulose Patient is constipated despite taking lactulose High ammonia level Hepatic encephalopathy related to constipation Continue lactulose and rifaximin She can be transferred to [facility] She can eat now
[2022-03-06 08:35] LABS: Troponin 5 6HR 480.9 ng/L (0-10); Troponin 5 6HR Delta 411.9 ng/L (0-12)
[2022-03-06] MEDS: lactulose oral liq 20 gm/30 mL UDC PO ×2 (09:20→19:48)
--- NOTE | 2022-03-06 09:56 | PC.NURSE ---
Patient transferred to [facility] at 0911
[2022-03-06 10:13] LABS: Ammonia 69 umol/L (11-51); Lactic Sepsis W/Reflex 1.7 mmol/L (0.5-2.2)
--- NOTE | 2022-03-06 10:44 | USCV_ITS ---
Jacquelin Whiteside Age: 56 Gender: F : 1965 Exam Date: 03/06/2022 11:36 Ordering Phys: Humphrey Hooper MD Technologist: Anant Ruggiero [place] [facility] [place]: CVA BP: 134 / 76 HR: 63 Rhythm: Sinus Technical Quality: Adequate MEASUREMENTS (Male / Female) Normal Values 2D ECHO LV Diastolic Diameter PLAX 4.2 cm 4.2 - 5.9 / 3.9 - 5.3 cm LV Systolic Diameter PLAX 3.2 cm IVS Diastolic Thickness 1.3 cm 0.6 - 1.0 / 0.6 - 0.9 cm IVS Systolic Thickness 1.7 cm LVPW Diastolic Thickness 1.3 cm 0.6 - 1.0 / 0.6 - 0.9 cm LVPW Systolic Thickness 1.6 cm LVOT Diameter 2.0 cm LV Ejection Fraction 2D Teich 47.5 % LV Ejection Fraction MOD 2C 28.9 % LV Ejection Fraction 2C AL 32.1 % LA Diameter 4.6 cm M-MODE Aortic Annulus Diameter 4.3 cm LA Ao Ratio MM 1.1 MV E Point Septal Separation 2.0 cm DOPPLER AV Peak Velocity 129.0 cm/s LVOT Peak Velocity 64.0 cm/s AV Area Cont Eq vti 1.6 cm squared AV Area Cont Eq pk 1.6 cm squared MV Area PHT 5.0 cm squared Mitral E to A Ratio 1.0 MV E' Velocity 43.5 cm/s Mitral E to MV E' Ratio 11.3 Mitral E to LV E' Lateral Ratio 9.6 Mitral E to LV E' Septal Ratio 13.9 TR Peak Velocity 230.7 cm/s TR Peak Gradient 21.3 mmHg TV Peak E Velocity 86.0 cm/s Right Atrial Pressure 3.0 mmHg Pulmonary Artery Systolic Pressu 24.3 mmHg RV Acceleration Time 0.1 s FINDINGS Left Ventricle Normal left ventricular cavity size. Mildly decreased left ventricular systolic function. Left ventricular ejection fraction is estimated at 45 %. Mild global left ventricular hypokinesis. Grade II diastolic dysfunction, moderately elevated filling pressures. Right Ventricle Normal right ventricular size and systolic function. Right ventricular systolic pressure 29 mmHg. Pacemaker wire visualized in the right ventricle. Right Atrium Normal right atrial size. Left Atrium Mildly increased left atrial size. Mitral Valve Structurally normal mitral valve. No mitral valve stenosis. Trace mitral valve regurgitation. Aortic Valve Aortic valve not well visualized. No aortic valve stenosis. No aortic valve regurgitation. Tricuspid Valve Structurally normal tricuspid valve. No tricuspid valve stenosis. Trace to mild tricuspid valve regurgitation. Pulmonic Valve Structurally normal pulmonic valve. No pulmonary valve stenosis. [id number] pulmonary valve regurgitation. Pericardium No pericardial effusion. Aorta Normal size aortic root and proximal ascending aorta. IVC Normal IVC dimension. CONCLUSIONS 1. Normal left ventricular cavity size. Mildly decreased left ventricular systolic function. Left ventricular ejection fraction is estimated at 45 %. Mild global left ventricular hypokinesis. Grade II diastolic dysfunction, moderately elevated filling pressures. 2. Normal right ventricular size and systolic function. 3. Fmer-[id number]-pehyddzk pulmonary valve regurgitation. 4. No cardioembolic source of stroke based on this study. GARRETT may be considered if clinically indicated. Cici Ty MD (Electronically Signed) Final Date: 06 March 2022 14:10 S
--- NOTE | 2022-03-06 10:44 | US_ITS ---
WS: [id number] Abdominal ultrasound, limited. History: Evaluate for ascites. Comparison: None. All 4 quadrants are imaged by ultrasound to evaluate for ascites. There is no peritoneal fluid identi fied. US/US abdomen lmt fluid [id number] IMPRESSION: No peritoneal ascites.
[2022-03-06] MEDS: morphine 4 mg/mL SDV 1 mL 2 MG IVP ×2 (13:37→19:29)
[2022-03-06] MEDS: cefTRIAXone 2,000 MG in sodium chloride 0.9% (plus) 50 ML 100 MG IV (13:38)
[2022-03-06] MEDS: isosorbide mononitrate ER 60 mg Tablet PO (13:39)
[2022-03-06] MEDS: oxyCODONE 5 mg IR Tab/Cap PO (20:09)
[2022-03-06 21:29] LABS: Glucose Point of Care 325 mg/dL (70-110)
[2022-03-06] MEDS: insulin glargine 100 units/1 mL 20 UNIT SUBCUT (21:39)
[2022-03-07] VITALS (8 sets, daily range): BP systolic 149–184; BP diastolic 81–95; PULSE 60–67; RESP 16–18; TEMP 36.7–37; O2SAT 95
--- NOTE | 2022-03-07 02:31 | PC.NURSE ---
Patient in bed with family member at bedside. At beginning of my shift, patient not wanting blood glucose checked with our accucheck machine. Patient states they've been using the one on my arm the entire time I've been here. I want to use it, I paid a lot of money for it. Patient educated that it is best we use our machine to check her blood sugar. Male family member at bedside states That's not gonna happen. Patient agreeable to let us check her blood sugar with our machine. Male family member states I'll let you do it one time, and that's it.
[2022-03-07] MEDS: oxyCODONE 5 mg IR Tab/Cap PO ×2 (04:09→09:15)
[2022-03-07] MEDS: morphine 4 mg/mL SDV 1 mL 2 MG IVP (05:58)
[2022-03-07 06:40] LABS: Glucose Point of Care 220 mg/dL (70-110)
[2022-03-07 07:55] LABS: Lactate (Lactic Acid level) 1.5 mmol/L (0.5-2.2)
--- NOTE | 2022-03-07 08:30 | PM.DCS ---
Discharge Providers Date of Admission: 03/06/22 05:06 Date of Discharge: March 07, 2022 Attending Provider at Admission: Claudio Haque MD Attending Provider at Discharge: Humphrey Hooper MD Primary Care Provider: Sohail Oliva MD Diagnoses at Discharge Discharge Diagnosis (1) Acute hepatic encephalopathy: Status: Acute (2) Acute alteration in mental status: Status: Acute (3) Acute respiratory distress: Status: Acute (4) Thrombocytopenia: Status: Acute (5) CKD (chronic kidney disease): Status: Acute (6) Lactic acidosis: Status: Acute (7) Atrial fibrillation: Status: Acute Qualifiers: Atrial fibrillation type: paroxysmal Qualified Code(s): I48.0 - Paroxysmal atrial fibrillation (8) Diabetes mellitus: Status: Acute (9) Hyperlipidemia: Status: Acute (10) Pacemaker: Status: Acute (11) (HFpEF) heart failure with preserved ejection fraction: Status: Acute Reason for Visit Reason for Visit: AMS Hospital Course Hospital Course 56-year-old female who has history of Morrell, esophageal variceal banding 4 years ago, presented with hepatic encephalopathy, she was constipated, with lactulose to 3 bowel movement her mentation improved. had no clue about avoiding factors to prevent hepatic encephalopathy, in fact he had little education regarding hepatic encephalopathy, they do not see any gastro enterologist or emotional support teacher. I have given him referral to see a assistant track and field coach in [place]. New PCP Dr. Singer. Counseling done at the time of discharge to use lactulose for at least 2 bowel movements a day if 3 bowel movements a day would make her dehydrated. She can take her antihypertensive regimen because she has remained hypertensive throughout her hospitalization. She carries history of esophageal variceal banding, continue nadolol. I will reduce the dose of Lasix to once a day along potassium supplements. Her lactic acidemia was secondary to liver cirrhosis no active signs of infection. She was given ceftriaxone for possible SBP however abdominal ultrasound did not show significant ascitic fluid. Physical Exam Narrative: Hepatic encephalopathy signs improved S1, S2 Abdomen soft Nonfocal neuro exam Awake and alert is at the bedside Urinary Catheter Management: Rodas: Cath Placed During This Visit: yes Reason for Continuing Indwelling Catheter: Accurate Measurement of Urinary Output in Critically Ill Patients Urinary Catheter Date of Insertion: 03/06/22 Urinary Catheter Time of Insertion: 04:30 Discharge Data Studies Completed and Pending Completed Studies During Hospitalization Category Date Time Status CT chest abdomen pelvis [[place] [id number] Cat Scan 03/06/22 04:35 Completed ] Routine CT head wo con* [id number] Stat Cat Scan 03/06/22 01:07 Completed XR chest 1V portable [id number] Stat Exams 03/06/22 01:07 Completed CV. echo complete* [id number] Routine Ultrasound 03/06/22 10:44 Completed US abdomen lmt fluid [id number] Routine Ultrasound 03/06/22 10:44 Completed US gall bladder [id number] Routine Ultrasound 03/06/22 05:52 Completed Pending at discharge Category Date Time Status Sestamibi Stress Test Request Routine Exams 03/08/22 06:00 Ordered Albumin Body Fluid Routine Lab 03/06/22 10:44 Ordered Blood Culture Stat Lab 03/06/22 01:39 Results Body Fluid Analysis Routine Lab 03/06/22 10:44 Ordered Body Fluid Culture & GS Routine Lab 03/06/22 10:44 Ordered Glucose Body Fluid Routine Lab 03/06/22 10:44 Ordered LDH Body Fluid Routine Lab 03/06/22 10:44 Ordered Sputum Culture and Gram Stain Stat Lab 03/06/22 04:56 Uncollected Total Protein Body Fluid Routine Lab 03/06/22 10:44 Ordered Urine Culture Stat Lab 03/06/22 06:07 Received pH Body Fluid Routine Lab 03/06/22 10:44 Ordered Radiology Impressions Chest X-Ray 03/06/22 01:07 IMPRESSION: 1. Mild lower lung predominant ground-glass opacity bilaterally. Possible pulmonary edema. 2. Cardiac enlargement. Head CT 03/06/22 01:07 IMPRESSION: No acute intracranial abnormality. Chest/Abdomen/Pelvis CT 03/06/22 04:35 IMPRESSION: Negative CT chest. No acute pathology. IMPRESSION: 1. Liver cirrhosis. 2. Negative for focal acute abdominopelvic pathology. Gallbladder Ultrasound 03/06/22 05:52 IMPRESSION: 1. Enlarged heterogeneous liver with changes of cirrhosis. There are 2 masses within the liver. The smaller mass within the LEFT lobe is probably a cyst. Favor the more solid-appearing mass in the RIGHT lobe adjacent to the gallbladder may be hepatic steatosis. Recommend follow-up ultrasound in 3 months. 2. Cholelithiasis without acute cholecystitis. Abdomen Ultrasound 03/06/22 10:44 IMPRESSION: No peritoneal ascites. Laboratory Results WBC 6.0 10^3/uL (4.0-10.0) 03/06/22 01:02 RBC 4.31 10^6/uL (4.1-5.3) 03/06/22 01:02 Hgb 12.1 g/dL (11.5-15.3) 03/06/22 01:02 Hct 37.8 % (37.0-47.0) 03/06/22 01:02 MCV 87.7 fl (81-99) 03/06/22 01:02 MCH 28.1 pg (28.0-34.0) 03/06/22 01:02 MCHC 32.0 g/dL (30.0-36.0) 03/06/22 01:02 RDW 15.4 % (12.1-15.1) H 03/06/22 01:02 Plt Count 129 10^3/cmm (130-400) L 03/06/22 01:02 MPV 12.5 fL (7.4-10.4) H 03/06/22 01:02 Neut % (Auto) 69.7 % 03/06/22 01:02 Lymph % (Auto) 18.3 % 03/06/22 01:02 [place] % (Auto) 9.2 % 03/06/22 01:02 Eos % (Auto) 1.7 % 03/06/22 01:02 Baso % (Auto) 0.8 % 03/06/22 01:02 Neut # (Auto) 4.14 10^3/uL (1.8-7.7) 03/06/22 01:02 Lymph # (Auto) 1.1 10^3/uL (0.8-4.8) 03/06/22 01:02 [place] # (Auto) 0.6 10^3/uL (0.2-0.9) 03/06/22 01:02 Eos # (Auto) 0.1 10^3/uL (0.0-0.8) 03/06/22 01:02 Baso # (Auto) 0.1 10^3/uL (0.0-0.1) 03/06/22 01:02 Nucleated RBC % (auto) 0 % 03/06/22 01:02 Nucleated RBCs # 0.0 /100WBC 03/06/22 01:02 PT 14.40 SECONDS (12.1-14.9) 03/06/22 01:37 INR 1.08 (0.8-1.2) 03/06/22 01:37 APTT 26.8 SECONDS (23.9-36.7) 03/06/22 01:37 Specimen Type Arterial 03/06/22 01:30 Sample Site Brachial, left 03/06/22 01:30 ABG pH 7.45 (7.35-7.45) 03/06/22 01:30 ABG pCO2 28.3 mmHg (35-45) L 03/06/22 01:30 ABG pO2 77.4 mmHg (80.0-100.0) L 03/06/22 01:30 ABG HCO3 19.5 mmol/L (22-26) L 03/06/22 01:30 ABG Base Excess -3.3 mmol/L (-2.0-2.0) L 03/06/22 01:30 Mike Test Pos 03/06/22 01:30 Hematocrit 41.6 % (37-47) 03/06/22 01:30 O2 Delivery Device Nc 03/06/22 01:30 O2 Liters/Min 2.0 % 03/06/22 01:30 FiO2 28.0 % 03/06/22 01:30 Political Consultant ID Alewe 03/06/22 01:30 Sodium 138 mmol/L (136-145) 03/06/22 01:39 Potassium 5.1 mmol/L (3.5-5.1) 03/06/22 01:39 Chloride 101 mmol/L (98-107) 03/06/22 01:39 Carbon Dioxide 20 mmol/L (22-29) L 03/06/22 01:39 Anion Gap 22.1 (5-19) H 03/06/22 01:39 BUN 32 mg/dL (6-20) H 03/06/22 01:39 Creatinine 1.2 mg/dL (0.5-0.9) H 03/06/22 01:39 GFR Calculation 46.1 mL/min (90-130) L 03/06/22 01:39 Glucose 294 mg/dL (65-115) H 03/06/22 01:39 POC Glucose 220 mg/dL (70-110) H 03/07/22 06:35 Calculated Osmolality 304 mOsm/kg (285-295) H 03/06/22 01:39 Lactic Acid 1.7 mmol/L (0.5-2.2) 03/06/22 09:22 Lactate 1.5 mmol/L (0.5-2.2) 03/07/22 07:28 Calcium 9.5 mg/dL (8.5-10.5) 03/06/22 01:39 Magnesium 2.3 mg/dL (1.7-2.3) 03/06/22 01:39 Total Bilirubin 2.0 mg/dL (0.15-1.2) H 03/06/22 01:39 GGT 172 U/L (5-36) H 03/06/22 06:15 AST 46 U/L (0-32) H 03/06/22 01:39 ALT 28 U/L (0-33) 03/06/22 01:39 Alkaline Phosphatase 191 U/L (35-105) H 03/06/22 01:39 Ammonia 69 umol/L (11-51) H 03/06/22 09:22 Troponin T Baseline 69 ng/L (0-10) H 03/06/22 01:37 Troponin T 120 Minute 507.7 ng/L (0-10) H 03/06/22 06:15 Delta Troponin T 438.7 ABS# (0-10) H* 03/06/22 06:15 Troponin T Hi Sens 6Hr 480.9 ng/L (0-10) H 03/06/22 07:46 Troponin T Hi Sens 6Hr Delta 411.9 ng/L (0-12) H* 03/06/22 07:46 C-Reactive Protein 3.7 mg/L (0.0-4.9) 03/06/22 06:15 NT-Pro-B Natriuret Pep 206 pg/mL (0-125) H 03/06/22 01:39 Total Protein 9.2 g/dL (6.6-8.7) H 03/06/22 01:39 Albumin 4.4 g/dL (3.5-5.2) 03/06/22 01:39 Globulin 4.8 g/dL (1.3-4.6) H 03/06/22 01:39 Procalcitonin 0.41 ng/mL (0-0.5) 03/06/22 06:15 TSH 0.83 uIU/mL (0.27-4.20) 03/06/22 06:15 Random Cortisol 38.97 ug/dL (2.47-19.5) H 03/06/22 06:15 Urine Color Yellow (Yellow) 03/06/22 02:00 Urine Appearance Clear (CLEAR) 03/06/22 02:00 Urine pH 7 (5-7) 03/06/22 02:00 Ur Specific [place] 1.015 (1.005-1.030) 03/06/22 02:00 Urine Protein 3+ (Negative) H 03/06/22 02:00 Urine Glucose (UA) 4+ (Normal) H 03/06/22 02:00 Urine Ketones Negative (Negative) 03/06/22 02:00 Urine Blood 2+ (Negative) H 03/06/22 02:00 Urine Nitrate Negative (Negative) 03/06/22 02:00 Urine Bilirubin Neg (Negative) 03/06/22 02:00 Urine Urobilinogen Norm mg/dL (Negative) 03/06/22 02:00 Ur Leukocyte Esterase Negative (Negative) 03/06/22 02:00 Urine RBC 5-10 /hpf (0-2) H 03/06/22 02:00 Urine WBC 0-4 /hpf (0-5) H 03/06/22 02:00 Ur Squamous Epith Cells 0-4 /hpf (0-5) H 03/06/22 02:00 Ur Renal Epithelial Cell 0-2 /hpf 03/06/22 02:00 Amorphous Sediment Not Reportable 03/06/22 02:00 Urine Bacteria None /hpf (NONE) 03/06/22 02:00 Urine Mucus Trace /hpf 03/06/22 02:00 Salicylates < 0.3 mg/dL (3-10) L 03/06/22 01:39 Urine Opiates Screen Positive ng/mL (Negative) H 03/06/22 02:00 Acetaminophen < 5.0 ug/mL (10-30) L 03/06/22 01:39 Ur Barbiturates Screen Negative ng/mL (Negative) 03/06/22 02:00 Ur Phencyclidine Scrn Negative ng/mL (Negative) 03/06/22 02:00 Ur Amphetamines Screen Negative ng/mL (Negative) 03/06/22 02:00 U Benzodiazepines Scrn Negative ng/mL (Negative) 03/06/22 02:00 Urine Cocaine Screen Negative ng/mL (Negative) 03/06/22 02:00 U Marijuana (THC) Screen Negative ng/mL (Negative) 03/06/22 02:00 Serum Ketones Negative (Negative) 03/06/22 01:39 Coronavirus 229E (PCR) Not detected (NOT DETECT) 03/06/22 01:30 SARS-CoV-2 (PCR) Not detected (NOT DETECT) 03/06/22 01:30 Vitals Last Vital Signs Temp 98.2 F 03/07/22 08:00 Pulse 67 03/07/22 08:00 Resp 16 03/07/22 08:00 BP 184/84 03/07/22 08:00 Pulse Ox 95 03/07/22 08:00 O2 Del Method 03/07/22 08:00 FiO2 30 03/06/22 07:17 Discharge Plan Discharge Patient Disposition: Home Condition: Stable Prescriptions: Continued (DME) lancing device with lancets Kit See Rx Instructions .ROUTE .MEDSUPPLY Qty: 1 0RF Rx Instructions: As directed (DME) lancets [BD Ultra Fine Lancets] 33 gauge misc See Rx Instructions .ROUTE .MEDSUPPLY Qty: 100 12RF Rx Instructions: test 4 times daily (DME) blood-glucose meter Kit See Rx Instructions .Route Qty: 1 11RF Rx Instructions: wanda 14 with sensors and patches (DME) pen needle, diabetic [BD Ultra-Fine Short Pen Needle] 31 gauge x 5/16 needle See Rx Instructions .ROUTE .MEDSUPPLY Qty: 150 3RF Rx Instructions: test 5 times daily (DME) Blood Glucose Test Strip See Rx Instructions .ROUTE .MEDSUPPLY Qty: 100 6RF Rx Instructions: TEST UP TO 4 TIMES A DAY lidocaine-prilocaine 2.5-2.5 % cream 1 applic topical .3-4 times daily Qty: 240 3RF Rx Instructions: melox 0.09% lamotr2.5% in lido insulin lispro 100 unit/mL insulin pen See Rx Instructions .ROUTE .COMPLEX Qty: 45 3RF Dose Instruction: INJECT USING SLIDING SCALE THREE TIMES DAILY, MAX OF 51 UNITS PER DOSE MAX OF 153 UNITS PER DAY Rx Instructions: INJECT USING SLIDING SCALE THREE TIMES DAILY, MAX OF 51 UNITS PER DOSE MAX OF 153 UNITS PER DAY isosorbide mononitrate 60 mg tablet extended release 24 hr 60 mg PO DAILY Qty: 90 3RF nitroglycerin [Nitrostat] 0.4 mg tablet, sublingual 0.4 mg SUBLINGUAL DIRECTED PRN (Reason: Chest Pain) Qty: 30 8RF irbesartan 75 mg tablet 75 mg PO DAILY Qty: 90 3RF nadolol 40 mg tablet 40 mg PO DAILY Qty: 90 3RF Lantus Solostar U-100 Insulin 100 unit/mL (3 mL) insulin pen 40 unit SUBCUT BID pantoprazole 40 mg tablet,delayed release (DR/EC) 40 mg PO BID furosemide 40 mg tablet 40 mg PO DAILY Qty: 60 0RF Rx Instructions: may take another 40 mg at noon as needed lactulose 10 gram/15 mL solution 10 g PO DAILY Qty: 500 3RF Changed morphine 60 mg tablet extended release 30 mg PO DAILY 30 Days Qty: 60 0RF potassium chloride 20 mEq tablet extended release 20 meq PO DAILY Qty: 60 0RF Discontinued celecoxib 200 mg capsule 200 mg PO BID Qty: 180 1RF Discharge Orders: Discharge Order (Routine); Ordered 03/07/22 Ordered By: Humphrey Hooper Referrals: Tim Montano MD [Referring] - 2 weeks ([place]) Sohail Oliva MD [Primary Care Provider] - 03/13/22 3:00 pm Jvoan Singer MD [Physician] - 03/19/22 8:45 am Discharge Diet: Cardiac Discharge Activity: Increase activity as tolerated Patient Instructions: Hepatic Encephalopathy (DC), Opioid Safety Discharge Attestations Time Spent in Discharge Care*: less than 30 min Status at Discharge: Cognitive status at discharge: cognitively intact, Behavioral status at discharge: cooperative, Quality Metrics Clinical Quality Measures [ No reported AMI, CVA or VTE this stay] Coding Level of Care Code Acute Chg FW DC note Diagnoses Acute hepatic encephalopathy K76.82 Acute alteration in mental status R41.82 Acute respiratory distress R06.03 Thrombocytopenia D69.6 CKD (chronic kidney disease) N18.9 Lactic acidosis E87.20 Atrial fibrillation I48.0 Atrial fibrillation type: paroxysmal Diabetes mellitus E11.9 Hyperlipidemia E78.5 Pacemaker Z95.0 (HFpEF) heart failure with preserved ejection fraction I50.30
[2022-03-07] MEDS: enoxaparin 100 mg/mL Syringe SUBCUT (09:01)
[2022-03-07] MEDS: lactulose oral liq 20 gm/30 mL UDC PO (09:02)
[2022-03-07] MEDS: aspirin 81 mg EC Tablet PO (09:02)
[2022-03-07] MEDS: isosorbide mononitrate ER 60 mg Tablet PO (09:02)
[2022-03-07] MEDS: clopidogrel 300 mg Tablet PO (09:03)
[2022-03-07] MEDS: insulin lispro 100 unit/1 mL SUBCUT (09:03)
[2022-03-07] MEDS: FUROsemide 40 mg Tablet PO (09:03)
[2022-03-07] MEDS: pantoprazole 40 mg SDV IVP (09:07)
[2022-03-07 10:27] LABS: Glucose Point of Care 371 mg/dL (70-110)
== END 2022-03-07 10:48 | disposition home or self-care (01) ==
LOC: ER 03:11 → ICU 04:14 → MEDSURG 10:03 → ICU 03-12 13:52
PROVIDERS: Admitting Provider Family Medicine; Emergency Provider Emergency Medicine; PCP Internal Medicine; Visit Provider Internal Medicine
DX: K76.82 Hepatic encephalopathy (principal); R41.82 Altered mental status, unspecified; R06.03 Acute respiratory distress; D69.6 Thrombocytopenia, unspecified; E11.22 Type 2 diabetes mellitus with diabetic chronic kidney disease; I13.0 Hypertensive heart and chronic kidney disease with heart failure and stage 1 through stage 4 chronic kidney disease, or unspecified chronic kidney disease; N18.9 Chronic kidney disease, unspecified; I50.30 Unspecified diastolic (congestive) heart failure; E87.20 Acidosis, unspecified; I48.0 Paroxysmal atrial fibrillation; E78.5 Hyperlipidemia, unspecified; Z95.0 Presence of cardiac pacemaker; K74.60 Unspecified cirrhosis of liver; Z95.1 Presence of aortocoronary bypass graft; I25.10 Atherosclerotic heart disease of native coronary artery without angina pectoris; Z79.4 Long term (current) use of insulin; I25.2 Old myocardial infarction; E11.40 Type 2 diabetes mellitus with diabetic neuropathy, unspecified; Z87.891 Personal history of nicotine dependence
CPT/HCPCS: 36415; 36416; 36600; 51702; 70450; 71045; 71250; 74176; 76705; 80053; 80306; 80307; 81001; 82009; 82140; 82533; 82803; 82962; 82977; 83605; 83735; 83880; 84145; 84443; 84484; 85025; 85610; 85730; 86140; 87040; 87077; 87086; 87186; 87205; 87635; 87641; 93005; 93306; 94660; 94664; 96365; 96366; 96367; 96372; 96375; 97166; 99291; C9113; G0378; J0692; J0696; J1650; J1815; J2270; J2405; J2543; J7030

== ENCOUNTER 2022-03-25 00:28 | Observation (INO) | payer MEDICARE, MEDICAID, SELFPAY ==
[2022-03-25] VITALS (11 sets, daily range): BP systolic 147–216; BP diastolic 65–90; PULSE 60–75; RESP 13–18; TEMP 36.7–37.1; O2SAT 95–99
--- NOTE | 2022-03-25 00:32 | CTR_ITS ---
PROCEDURE INFORMATION: Exam: CT Head Without Contrast Exam date and time: 03/25/2022 12:44 AM Age: 56 years old Clinical indication: Altered mental status/memory loss; Prior surgery; Surgery type: Resection of pituitary beneign tumor; Patient HX: Arrival via EMS for AMS. Patient very lethargic and non verbal during exam. Recent hospitilization for hepatic failure. TECHNIQUE: Imaging protocol: Computed tomography of the head without contrast. Radiation optimization: All CT scans at this facility use at least one of these dose optimization techniques: automated exposure control; mA and/or kV adjustment per patient size (includes targeted exams where dose is matched to clinical indication); or iterative reconstruction. Other protocol: This patient has received 3 known CTs and 0 known cardiac nuclear medicine studies in the 12 months prior to the current study. COMPARISON: CT head wo con* [id number] 03/06/2022 1:17 AM RADIATION DOSE METRICS: Total DLP (mGy-cm): 980.18 FINDINGS: Brain: Normal. No hemorrhage. Unremarkable white matter. No mass effect. Cerebral ventricles: No ventriculomegaly. Paranasal sinuses: Visualized sinuses are unremarkable. No fluid levels. Mastoid air cells: Visualized mastoid air cells are well aerated. Bones/joints: Unremarkable. No acute fracture. Soft tissues: Unremarkable. CT/CT head wo con* [id number] IMPRESSION: No acute intracranial abnormality.
--- NOTE | 2022-03-25 00:32 | XRR_ITS ---
PROCEDURE INFORMATION: Exam: XR Chest Exam date and time: 03/25/2022 12:36 AM Age: 56 years old Clinical indication: Prior surgery; Surgery type: Cabg. Coronary stents; Patient HX: Arrival via EMS for AMS. Patient very lethargic and non verbal during exam. Recent hospitilization for hepatic failure. TECHNIQUE: Imaging protocol: Radiologic exam of the chest. Views: 1 view. COMPARISON: CT chest abdpel [id number] 03/06/2022 4:45 AM FINDINGS: Tubes, catheters and devices: Left -sided pacemaker. Lungs: Unremarkable. No consolidation. Pleural spaces: Unremarkable. No pleural effusion. No pneumothorax. Heart/Mediastinum: Unremarkable. No cardiomegaly. Bones/joints: Stable sternotomy. XR/XR chest 1V portable [id number] IMPRESSION: No acute findings.
--- NOTE | 2022-03-25 00:32 | ECG_ITS ---
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 Measurements Intervals Mason Rate: 76 P: 106 ID: [id number] QRS: 54 QRSD: 103 T: 90 QT: 418 QTc: 473 Interpretive Statements ELECTRONIC ATRIAL PACEMAKER MODERATE ST DEPRESSION [0.05+ mV ST DEPRESSION] Compared to ECG 03/06/2022 08:02:38 ST (T wave) deviation now present Myocardial infarct finding no longer present Electronically Signed On 03-25-2022 16:04:11 HERITAGE CONSULTANT by Cici Ty M.D. [id number]
--- NOTE | 2022-03-25 00:38 | ED_ITS ---
HPI - Altered Mental Status General: Chief Complaint: Altered Mental Status Stated Complaint: ams Time Seen by Provider: 03/25/22 00:29 Source: EMS Mode of arrival: EMS Limitations: altered mental status History of Present Illness: 56-year-old female has history of Morrell with cirrhosis has a history of hepatic encephalopathy in the past as well. Per EMS family states that she had went to bed at 7 PM when she awoke she has been altered per family here patient's not able to answer any questions she is responsive to painful stimuli but unable to follow any commands her blood pressure is high she is had no fever no known infections. No known injuries or trauma Review of Systems General: Reports: ROS unobtainable due to mental status PFSH ED PFSH: Medical History Atrial fibrillation CAD (coronary artery disease) Carpal tunnel syndrome Diabetes mellitus Essential hypertension Hepatomegaly History of [place] (myocardial infarction) (~2006) Hyperlipidemia Migraine Neuropathy No pertinent past medical history neghx: thyroid,dvt/pe PCP: Dr. Oliva Pacemaker (~2012) Splenomegaly Sporadic pituitary adenoma Surgical History S/P arterial stent x 3; approximately in 2012, 2013 - [facility] S/P brain surgery (~2005) Removal of brain tumor- benign; in the pituitary gland S/P CABG x 2 in 2006 S/P section performed in 1990, 1992 S/P hysterectomy (~1992) converted from C/Section to NAMAN,bilateral salpingectomy, probable ovaries remain. Most likely performed by Dr. Roper. Vulvar abscess (~05/01/15) I&D of left labia majora abscess; performed by [facility]. Family History Brother Stroke Diabetes Mother , 72 Diabetes Heart disease Hypertension Stroke Father , 68 Diabetes Heart disease Hypertension Stroke Grandmother Diabetes Maternal Denies family history of Colon cancer Ovarian cancer Hypercholesteremia Breast cancer Uterine cancer Thyroid disease Social History Smoking and tobacco status: former smoker (20+ years) Alcohol intake: never Caregiver/support person: Yes Lives independently: Yes Household members: spouse Housing: House Marital status: Course Vital Signs: Vital signs: Vital Signs Temperature 98.8 F 03/25/22 00:36 Pulse Rate 60 03/25/22 01:31 Respiratory Rate 13 03/25/22 01:31 Blood Pressure 156/66 03/25/22 01:31 Pulse Oximetry 99 03/25/22 01:31 Oxygen Delivery Me thod 03/25/22 00:36 MDM - Altered Mental Status Medical Decision Making Patient presents with altered mental status likely from hepatic encephalopathy her ammonia level is 182 here other blood work is normal spoke to the hospitalist will admit at this time. Lab Data 03/25/22 00:30 03/25/22 00:30 Radiology Impressions Chest X-Ray 03/25/22 00:32 IMPRESSION: No acute findings. Head CT 03/25/22 00:32 IMPRESSION: No acute intracranial abnormality. Laboratory Results WBC 6.0 10^3/uL (4.0-10.0) 03/25/22 00:30 RBC 4.67 10^6/uL (4.1-5.3) 03/25/22 00:30 Hgb 13.0 g/dL (11.5-15.3) 03/25/22 00:30 Hct 40.6 % (37.0-47.0) 03/25/22 00:30 MCV 86.9 fl (81-99) 03/25/22 00:30 MCH 27.8 pg (28.0-34.0) L 03/25/22 00:30 MCHC 32.0 g/dL (30.0-36.0) 03/25/22 00:30 RDW 15.1 % (12.1-15.1) 03/25/22 00:30 Plt Count 101 10^3/cmm (130-400) L 03/25/22 00:30 MPV 12.3 fL (7.4-10.4) H 03/25/22 00:30 Neut % (Auto) 76.2 % 03/25/22 00:30 Lymph % (Auto) 13.9 % 03/25/22 00:30 [place] % (Auto) 7.5 % 03/25/22 00:30 Eos % (Auto) 1.5 % 03/25/22 00:30 Baso % (Auto) 0.7 % 03/25/22 00:30 Neut # (Auto) 4.56 10^3/uL (1.8-7.7) 03/25/22 00:30 Lymph # (Auto) 0.8 10^3/uL (0.8-4.8) 03/25/22 00:30 [place] # (Auto) 0.5 10^3/uL (0.2-0.9) 03/25/22 00:30 Eos # (Auto) 0.1 10^3/uL (0.0-0.8) 03/25/22 00:30 Baso # (Auto) 0.0 10^3/uL (0.0-0.1) 03/25/22 00:30 Nucleated RBC % (auto) 0 % 03/25/22 00:30 Nucleated RBCs # 0.0 /100WBC 03/25/22 00:30 PT 13.80 SECONDS (12.1-14.9) 03/25/22 00:30 INR 1.03 (0.8-1.2) 03/25/22 00:30 Specimen Type Arterial 03/25/22 01:14 Sample Site Brachial, right 03/25/22 01:14 ABG pH 7.47 (7.35-7.45) H 03/25/22 01:14 ABG pCO2 35.9 mmHg (35-45) 03/25/22 01:14 ABG pO2 90.1 mmHg (80.0-100.0) 03/25/22 01:14 ABG HCO3 26.0 mmol/L (22-26) 03/25/22 01:14 ABG Base Excess 2.4 mmol/L (-2.0-2.0) H 03/25/22 01:14 Mike Test Pos 03/25/22 01:14 Hematocrit 41.1 % (37-47) 03/25/22 01:14 O2 Delivery Device Room air 03/25/22 01:14 FiO2 21.0 % 03/25/22 01:14 [facility] Nurse ID Bernarda 03/25/22 01:14 Sodium 137 mmol/L (136-145) 03/25/22 00:30 Potassium 4.7 mmol/L (3.5-5.1) 03/25/22 00:30 Chloride 99 mmol/L (98-107) 03/25/22 00:30 Carbon Dioxide 26 mmol/L (22-29) 03/25/22 00:30 Anion Gap 16.7 (5-19) 03/25/22 00:30 BUN 27 mg/dL (6-20) H 03/25/22 00:30 Creatinine 1.4 mg/dL (0.5-0.9) H 03/25/22 00:30 GFR Calculation 38.6 mL/min (90-130) L 03/25/22 00:30 Glucose 257 mg/dL (65-115) H 03/25/22 00:30 Calculated Osmolality 298 mOsm/kg (285-295) H 03/25/22 00:30 Lactate 1.6 mmol/L (0.5-2.2) 03/25/22 00:30 Calcium 9.4 mg/dL (8.5-10.5) 03/25/22 00:30 Magnesium 2.2 mg/dL (1.7-2.3) 03/25/22 00:30 Total Bilirubin 1.6 mg/dL (0.15-1.2) H 03/25/22 00:30 AST 55 U/L (0-32) H 03/25/22 00:30 ALT 34 U/L (0-33) H 03/25/22 00:30 Alkaline Phosphatase 189 U/L (35-105) H 03/25/22 00:30 Ammonia 182 umol/L (11-51) H 03/25/22 02:45 Troponin T Baseline 41 ng/L (0-10) H 03/25/22 00:30 NT-Pro-B Natriuret Pep 325 pg/mL (0-125) H 03/25/22 00:30 Total Protein 8.5 g/dL (6.6-8.7) 03/25/22 00:30 Albumin 4.1 g/dL (3.5-5.2) 03/25/22 00:30 Globulin 4.4 g/dL (1.3-4.6) 03/25/22 00:30 Lipase 50 U/L (13-60) 03/25/22 00:30 TSH 0.78 uIU/mL (0.27-4.20) 03/25/22 00:30 Urine Color Light yellow (Yellow) 03/25/22 01:20 Urine Appearance Clear (CLEAR) 03/25/22 01:20 Urine pH 8 (5-7) H 03/25/22 01:20 Ur Specific [place] 1.015 (1.005-1.030) 03/25/22 01:20 Urine Protein Neg (Negative) 03/25/22 01:20 Urine Glucose (UA) 4+ (Normal) H 03/25/22 01:20 Urine Ketones Negative (Negative) 03/25/22 01:20 Urine Blood 2+ (Negative) H 03/25/22 01:20 Urine Nitrate Negative (Negative) 03/25/22 01:20 Urine Bilirubin Neg (Negative) 03/25/22 01:20 Urine Urobilinogen Norm mg/dL (Negative) 03/25/22 01:20 Ur Leukocyte Esterase Negative (Negative) 03/25/22 01:20 Urine RBC 5-10 /hpf (0-2) H 03/25/22 01:20 Urine WBC None /hpf (0-5) 03/25/22 01:20 Ur Squamous Epith Cells 0-4 /hpf (0-5) H 03/25/22 01:20 Amorphous Sediment Not Reportable 03/25/22 01:20 Urine Bacteria 1+ /hpf (NONE) H 03/25/22 01:20 Salicylates < 0.3 mg/dL (3-10) L 03/25/22 00:30 Acetaminophen < 5.0 ug/mL (10-30) L 03/25/22 00:30 Ethyl Alcohol < 10 mg/dL (0-10) 03/25/22 00:30 EKG Data EKG 1: I personally reviewed and interpreted this EKG as follows: EKG interpretation date: 03/25/22 EKG interpretation time: 00:34 Interpretation: paced hr [address] or t wave abnormalities qrs 103 qtc 449 Discharge Plan Discharge Patient Disposition: Admitted As Inpatient Clinical Impression: Altered mental status, Encephalopathy, hepatic Condition: Stable Prescriptions: No Action (DME) lancing device with lancets Kit See Rx Instructions .ROUTE .MEDSUPPLY Qty: 1 0RF Rx Instructions: As directed (DME) lancets [BD Ultra Fine Lancets] 33 gauge misc See Rx Instructions .ROUTE .MEDSUPPLY Qty: 100 12RF Rx Instructions: test 4 times daily (DME) blood-glucose meter Kit See Rx Instructions .Route Qty: 1 11RF Rx Instructions: wanda 14 with sensors and patches (DME) pen needle, diabetic [BD Ultra-Fine Short Pen Needle] 31 gauge x 5/16 needle See Rx Instructions .ROUTE .MEDSUPPLY Qty: 150 3RF Rx Instructions: test 5 times daily (DME) Blood Glucose Test Strip See Rx Instructions .ROUTE .MEDSUPPLY Qty: 100 6RF Rx Instructions: TEST UP TO 4 TIMES A DAY lidocaine-prilocaine 2.5-2.5 % cream 1 applic topical .3-4 times daily Qty: 240 3RF Rx Instructions: melox 0.09% lamotr2.5% in lido insulin lispro 100 unit/mL insulin pen See Rx Instructions .ROUTE .COMPLEX Qty: 45 3RF Dose Instruction: INJECT USING SLIDING SCALE THREE TIMES DAILY, MAX OF 51 UNITS PER DOSE MAX OF 153 UNITS PER DAY Rx Instructions: INJECT USING SLIDING SCALE THREE TIMES DAILY, MAX OF 51 UNITS PER DOSE MAX OF 153 UNITS PER DAY isosorbide mononitrate 60 mg tablet extended release 24 hr 60 mg PO DAILY Qty: 90 3RF nitroglycerin [Nitrostat] 0.4 mg tablet, sublingual 0.4 mg SUBLINGUAL DIRECTED PRN (Reason: Chest Pain) Qty: 30 8RF irbesartan 75 mg tablet 75 mg PO DAILY Qty: 90 3RF nadolol 40 mg tablet 40 mg PO DAILY Qty: 90 3RF Lantus Solostar U-100 Insulin 100 unit/mL (3 mL) insulin pen 40 unit SUBCUT BID pantoprazole 40 mg tablet,delayed release (DR/EC) 40 mg PO BID furosemide 40 mg tablet 40 mg PO DAILY Qty: 60 0RF Rx Instructions: may take another 40 mg at noon as needed morphine 60 mg tablet extended release 30 mg PO DAILY 30 Days Qty: 60 0RF lactulose 10 gram/15 mL solution 10 g PO DAILY Qty: 500 3RF potassium chloride 20 mEq tablet extended release 20 meq PO DAILY Qty: 60 0RF Referrals: Sohail Oliva MD [Primary Care Provider] - Coding Level of Care Code ED Stretcher Operator for Russ Baez
[2022-03-25] MEDS: hyDRALAzine 20 mg/mL INJ 1 mL 10 MG IVP (01:08)
--- NOTE | 2022-03-25 01:10 | PC.NURSE ---
pt trying to get out of bed once family gets to room. begins repeating come here to them over and over and trying to reach for them. Pt them begins repeating I need to pee . So I leave to get a nurse to help me with a catheter. As we are getting supplies together, I look up to see the pt's family members ambulating her across the hallway to the restroom. I call out that I need a urine sample and they tell me that I better hurry up. I quickly walk into restroom and place hat in commode. I wait with the to ensure the pt was safe. After she finished, it was noted that she had missed the hat with a majority of her urine stream. What was captured was taken to the lab. pt was ambulated back to room and placed in bed without incident. bedrails up, bed low, wheels locked.
[2022-03-25 01:13] LABS: Basophils % 0.7 %; Eosinophils # 0.1 10^3/uL (0.0-0.8); Eosinophils % 1.5 %; Hematocrit 40.6 % (37.0-47.0); Lymphocytes # 0.8 10^3/uL (0.8-4.8); Lymphocytes % 13.9 %; Mean Corpuscular Hemoglobin 27.8 pg (28.0-34.0); Mean Corpuscular Volume 86.9 fl (81-99); Mean Platelet Volume 12.3 fL (7.4-10.4); Monocytes # 0.5 10^3/uL (0.2-0.9); Monocytes % 7.5 %; Neutrophils # 4.56 10^3/uL (1.8-7.7); Neutrophils % 76.2 %; Nucleated Red Blood Cells % 0 %; Platelet Count 101 10^3/cmm (130-400); Red Blood Count 4.67 10^6/uL (4.1-5.3); Red Cell Distribution Width 15.1 % (12.1-15.1)
[2022-03-25 01:17] LABS: ABG PCO2 35.9 mmHg (35-45); ABG PH Result 7.47 (7.35-7.45); Arterial Blood Gas Hematocrit 41.1 % (37-47); Base Excess ABG 2.4 mmol/L (-2.0-2.0); Blood Gas Allen Test Pos; Blood Gas Sample Type Arterial; PO2 ABG 90.1 mmHg (80.0-100.0)
[2022-03-25 01:19] LABS: Blood Gas Sample Site Brachial, right; Oxygen Device ROOM AIR
[2022-03-25 01:30] LABS: Lactate (Lactic Acid level) 1.6 mmol/L (0.5-2.2)
[2022-03-25 01:31] LABS: Troponin(5th) Baseline 41 ng/L (0-10)
[2022-03-25 01:39] LABS: Alanine Aminotransferase 34 U/L (0-33); Albumin Level 4.1 g/dL (3.5-5.2); Alkaline Phosphatase 189 U/L (35-105); Aspartate Amino Transferase 55 U/L (0-32); Blood Urea Nitrogen 27 mg/dL (6-20); Calcium 9.4 mg/dL (8.5-10.5); Carbon Dioxide 26 mmol/L (22-29); Chloride 99 mmol/L (98-107); Globulin 4.4 g/dL (1.3-4.6); Glomerular Filtration Rate 38.6 mL/min (90-130); Glucose 257 mg/dL (65-115); Lipase 50 U/L (13-60); Magnesium 2.2 mg/dL (1.7-2.3); NT Pro B Type Natriuretic Pept 325 pg/mL (0-125); Osmolality Calculated 298 mOsm/kg (285-295); Sodium 137 mmol/L (136-145); Thyroid Stimulating Hormone 0.78 uIU/mL (0.27-4.20); Total Bilirubin 1.6 mg/dL (0.15-1.2); Total Protein 8.5 g/dL (6.6-8.7)
[2022-03-25 01:43] LABS: Acetaminophen < 5.0 ug/mL (10-30); Alcohol Level < 10 mg/dL (0-10); Anion Gap 16.7 (5-19); Potassium 4.7 mmol/L (3.5-5.1); Salicylate < 0.3 mg/dL (3-10)
[2022-03-25 01:44] LABS: Add Urine Microscopic? YES; Bilirubin Urine Neg (Negative); Blood Urine 2+ (Negative); Glucose Urine UA 4+ (Normal); Ketones Urine Negative (Negative); Leukocyte Esterase Urine Negative (Negative); Nitrate Urine Negative (Negative); Protein Urine Neg (Negative); Specific Gravity, Urine 1.015 (1.005-1.030); Urine Appearance Clear (CLEAR); Urine Color Light yellow (Yellow); Urobilinogen Urine Norm (Negative); pH Urine 8 (5-7)
[2022-03-25 01:45] LABS: INR 1.03 (0.8-1.2)
[2022-03-25 01:52] LABS: Add Urine Culture? No; Bacteria Urine 1+ /hpf; Squamous Epithelial Cell Urine 0-4 /hpf (0-5)
--- NOTE | 2022-03-25 02:51 | ECG_ITS ---
[facility] Test Date: 2022-03-25 Pat Name: Jacquelin Whiteside Department: Room: Gender: Female Geospatial Systems Integrator: : 1965 Requested By: Vinay Pederson Order Number: [id number] Boom MD: Cici Ty M.D. Measurements Intervals [place] Rate: 60 P: 111 TN: 258 QRS: 51 QRSD: 105 T: 90 QT: 495 QTc: 495 Interpretive Statements ELECTRONIC ATRIAL PACEMAKER MODERATE ST DEPRESSION [0.05+ mV ST DEPRESSION] PROLONGED QT INTERVAL Compared to ECG 03/25/2022 00:34:29 Prolonged QT interval now present ST (T wave) deviation still present Electronically Signed On 03-25-2022 16:14:27 CHIEF COUNSEL by Cici Ty M.D. [id number]
[2022-03-25 03:15] LABS: Ammonia 182 umol/L (11-51)
[2022-03-25 03:42] LABS: Troponin 5 2HR 42.44 ng/L (0-10)
[2022-03-25 03:43] LABS: Troponin 5 2HR Delta 1.44 ABS# (0-10)
[2022-03-25] MEDS: lactulose oral liq 20 gm/30 mL UDC 30 GM PO ×2 (03:44→06:02)
--- NOTE | 2022-03-25 03:46 | PM.HP ---
Providers/Chief Complaint Primary Care Provider: Sohail Oliva MD Chief Complaint: ams History of Present Illness Jacquelin Whiteside is a 56 year old female with a past medical history of CABG, diabetes, Morrell, portal hypertension, chronic kidney disease, history of GI bleed, A. fib not a candidate for anticoagulation, recent hospitalization for hepatic encephalopathy, she was given referral to see a assistant clinical director at [place], on previous admission EF was 45% outpatient stress test was recommended , however she has not been able to finish any presenting today with worsening of confusion. As per the they both went to bed early, Olya woke up around 11 PM she was very drowsy and weak could not speak properly, no signs of stroke were noticed. Prompted her visit to the ER. No recent nausea, vomiting, fever, diarrhea. She has been compliant with her lactulose, is not sure whether she carries history of sleep apnea. Review of Systems Const: Reports: body aches and fatigue Eyes: Denies: change in vision ENMT: Denies: throat pain Card: Denies: chest pain Resp: Denies: dyspnea GI: Reports: nausea; Denies: abdominal pain : Denies: flank pain Musc: Denies: neck pain Skin/Breast: Denies: skin pain Neuro: Reports: headache(s) Psych: Reports: anxiety Endo: Denies: polyuria Naveen/Lymph: Denies: easy bruising All/Imm: Denies: urticaria Medications/Allergies Home Medications Medication Instructions Recorded Confirmed Last Taken Type lancing device with lancets kit #1 ea 03/14/20 03/07/22 Unknown Rx lancets 33 gauge (BD Ultra Fine #100 ea 05/15/20 03/07/22 Unknown Rx Lancets) blood-glucose meter #1 ea 11/05/20 03/07/22 Unknown Rx blood sugar diagnostic (Blood #100 ea 07/23/21 03/07/22 Unknown Rx Glucose Test strips) pen needle, diabetic 31 gauge x #150 ea 07/23/21 03/07/22 Unknown Rx 5/16 (BD Ultra-Fine Short Pen Needle) lidocaine-prilocaine 2.5 %-2.5 % 1 applic topical .3-4 times daily 10/23/21 03/07/22 Unknown Rx topical cream #240 grams insulin lispro 100 unit/mL See Rx Instructions .Route 12/05/21 03/07/22 Unknown Rx subcutaneous pen .COMPLEX #45 mL isosorbide mononitrate 60 mg 60 mg PO DAILY #90 tabs 12/18/21 03/07/22 Unknown Rx tablet,extended release 24 hr nitroglycerin 0.4 mg sublingual 0.4 mg sublingual DIRECTED PRN 12/18/21 03/07/22 Unknown Rx tablet (Nitrostat) Chest Pain #30 tabs irbesartan 75 mg tablet 75 mg PO DAILY #90 tabs 12/27/21 03/07/22 Unknown Rx nadolol 40 mg tablet 40 mg PO DAILY #90 tabs 12/30/21 03/07/22 Unknown Rx insulin glargine 100 unit/mL (3 40 unit SUBCUT BID 03/06/22 03/07/22 Unknown History mL) subcutaneous pen (Lantus Solostar U-100 Insulin) pantoprazole 40 mg tablet,delayed 40 mg PO BID 03/06/22 03/07/22 Unknown History release furosemide 40 mg tablet 40 mg PO DAILY #60 tabs 03/07/22 03/07/22 Unknown Rx lactulose 10 gram/15 mL oral 10 g (15 mL) PO DAILY #500 mL 03/07/22 03/07/22 Unknown Rx solution morphine 60 mg tablet,extended 30 mg PO DAILY 1 month #60 tabs 03/07/22 03/07/22 Unknown Rx release potassium chloride 20 mEq 20 meq PO DAILY #60 tabs 03/07/22 03/07/22 Unknown Rx tablet,extended release Allergies Allergy/AdvReac Type Severity Reaction Status Date / Time insulin degludec Allergy ALGY-Difficulty Verified 03/06/22 09:28 [From Tresiba FlexTouch Breathing U-100] levofloxacin Allergy SWELLING Verified 03/06/22 09:28 promethazine Allergy confusion Verified 03/06/22 09:28 duloxetine AdvReac ADR-Swelling Verified 03/06/22 09:28 of the Eye PFSH Acute PFSH: Medical History (HFpEF) heart failure with preserved ejection fraction Acute alteration in mental status Acute hepatic encephalopathy Acute respiratory distress Atrial fibrillation CAD (coronary artery disease) Carpal tunnel syndrome CKD (chronic kidney disease) Diabetes mellitus Essential hypertension Hepatomegaly History of [place] (myocardial infarction) (~2006) Hyperlipidemia Lactic acidosis Migraine Neuropathy No pertinent past medical history neghx: thyroid,dvt/pe PCP: Dr. Oliva Pacemaker (~2012) Splenomegaly Sporadic pituitary adenoma Thrombocytopenia Surgical History S/P arterial stent x 3; approximately in 2012, 2013 - [place] S/P brain surgery (~2005) Removal of brain tumor- benign; in the pituitary gland S/P CABG x 2 in 2006 S/P section performed in 1990, 1992 S/P hysterectomy (~1992) converted from C/Section to NAMAN,bilateral salpingectomy, probable ovaries remain. Most likely performed by Dr. Roper. Vulvar abscess (~05/01/15) I&D of left labia majora abscess; performed by [facility]. Family History Brother Stroke Diabetes Mother , 72 Diabetes Heart disease Hypertension Stroke Father , 68 Diabetes Heart disease Hypertension Stroke Grandmother Diabetes Maternal Denies family history of Colon cancer Ovarian cancer Hypercholesteremia Breast cancer Uterine cancer Thyroid disease Social History Smoking and tobacco status: former smoker (20+ years) Alcohol intake: never Caregiver/support person: Yes Lives independently: Yes Household members: spouse Housing: House Marital status: Vitals/I&O/Wt Last Vital Signs Temp 98.8 F 03/25/22 00:36 Pulse 60 03/25/22 01:31 Resp 13 03/25/22 01:31 BP 156/66 03/25/22 01:31 Pulse Ox 99 03/25/22 01:31 O2 Del Method 03/25/22 00:36 Weight last 48 hrs Weight 108.862 kg Physical Exam Narrative: Awake alert No signs of asterixis Euvolemic Abdomen soft, nontender Legs with mild edema Currently on room air No audible stridor or wheezing Nontender abdomen S1, S2 variable Hypertensive No signs of meningitis Appears stated age Data 03/25/22 00:30 03/25/22 00:30 A&P Assessment and plan (1) Encephalopathy, hepatic: Plan Mild grade 2 hepatic encephalopathy Ammonia level is high Start lactulose along with rifaximin No need to trend ammonia level Patient remains hypertensive continue antihypertensive regimen Not an ideal candidate to start spironolactone because of chronic kidney disease Not complaining active chest pain Troponin not significantly high I will request stress test as her EF was reduced on echo & outpatient stress test was recommended after her recent hospitalization Hemoglobin A1c is around 9 continue insulin regimen TSH is normal, normal B12 no signs of peritoneal ascites on recent abdominal ultrasound . Consistent carb diet once stress test is completed Full code N.p.o. for now Attestations Medical Necessity Statement*: Anticipating discharge within 48 hours Time Spent in Patient Care: 30 Coding Level of Care Code Acute Code for Chg Fwd Diagnoses Encephalopathy, hepatic K76.82
--- NOTE | 2022-03-25 05:33 | NMCV_ITS ---
NM charlie perf SPECT r/s* [id number] Jacquelin Whiteside Age: 56 Gender: F : 1965 Exam Date: 03/25/2022 07:24 Ordering Phys: Humphrey Hooper MD Technologist: VANESSA Palomares Exam Location: [facility] Indications: CHEST PAIN STRESS TEST Please see separate stress test report in [facility] for full findings IMAGE PROTOCOL Rest/Stress 1 Lexiscan Day Radiopharmaceutical Dose (mCi) Administration Site Administered by Rest: Tc-99m 10.8 IV VANESSA Mares Sestamibi Stress:Tc-99m 33.0 IV VANESSA Mares Sestamibi Rest: 25-Mar-2022 60 Discovery 630 Stress: 25-Mar-2022 30 Discovery 630 0.4mg Lexiscan. Supine position only as patient was unable to lay prone. SPECT RESULTS Technical Quality: Excellent Raw Data Analysis: Normal Image Corrections: No attenuation or motion correction applied Summed Stress Score: 0 Summed Rest Score: 0 Summed Difference Score: 0 PERFUSION FINDINGS SPECT images demonstrate homogeneous tracer distribution throughout the myocardium. FUNCTIONAL RESULTS (calculated via Gated SPECT) Stress Image LV EF (%): 79 Stress EDV (mL):129 TID: 1.15 Stress ESV (mL):27 FUNCTIONAL FINDINGS: There is normal left ventricular systolic function. IMPRESSIONS 1. Normal myocardial perfusion imaging with no evidence of ischemia 2. LV systolic function is normal Juanjo Rico MD (Electronically Signed) Final Date: 25 March 2022 10:10 S
[2022-03-25 06:50] LABS: Glucose Point of Care 289 mg/dL (70-110)
--- NOTE | 2022-03-25 07:06 | PC.NURSE ---
late entry:0600, patient has pacemaker.
[2022-03-25] MEDS: regadenoson 0.4 Mg/5 ml Syringe IVP (08:36)
[2022-03-25] MEDS: insulin glargine 100 units/1 mL 40 UNIT SUBCUT (10:00)
[2022-03-25] MEDS: potassium chloride ER 20 mEq Tablet PO (10:02)
[2022-03-25] MEDS: pantoprazole DR 40 mg Tablet PO ×2 (10:02→18:55)
[2022-03-25] MEDS: FUROsemide 40 mg Tablet PO (10:02)
[2022-03-25] MEDS: isosorbide mononitrate ER 60 mg Tablet PO (10:02)
[2022-03-25] MEDS: insulin lispro 100 unit/1 mL SUBCUT ×3 (10:39→21:59)
--- NOTE | 2022-03-25 10:45 | PC.PHAR ---
PT UNABLE TO VERIFY MEDICATIONS DUE TO AMS - UNABLE TO REACH PTS CONTACTS - MEDICATIONS VERIFIED USING EXTERNAL MED LIST LAST FILLED AND CALLING PTS PHARMACY
[2022-03-25 12:01] LABS: Glucose Point of Care 408 mg/dL (70-110)
--- NOTE | 2022-03-25 12:44 | PM.MISC ---
Miscellaneous Note Note: Seen this AM. Patient just returned from a stress test. Results are pending at this time. She is somewhat confused but able to answer questions very appropriately. present at bedside. Continue current management as per history physical document.
[2022-03-25] MEDS: lactulose oral liq 20 gm/30 mL UDC PO (16:45)
[2022-03-25 17:51] LABS: Glucose Point of Care 555 mg/dL (70-110)
--- NOTE | 2022-03-25 18:44 | PC.NURSE ---
Dr. Qiu changed insulin sliding scale from a moderate to a high dose insulin scale. Ordered one time 18 unit dose now for blood sugar of 555.
[2022-03-25] MEDS: insulin lispro 100 unit/1 mL 18 UNIT SUBCUT (18:54)
[2022-03-25 21:20] LABS: Glucose Point of Care 566 mg/dL (70-110)
[2022-03-26] VITALS: BP 143/66; PULSE 66; RESP 17; TEMP 36.9; O2SAT 96
--- NOTE | 2022-03-26 02:21 | PC.NURSE ---
blood sugar 347. patient alert, oriented, denies pain, states my bs is going to continue to be high while taking lactulose and i take alot more insulin at home than given to me here Patient very pleasant, cooperative, remains at bedside.
[2022-03-26] MEDS: lactulose oral liq 20 gm/30 mL UDC PO (03:14)
[2022-03-26 04:00] VITALS: BP 145/79; PULSE 65; RESP 17; TEMP 36.7; O2SAT 96
[2022-03-26 04:34] LABS: Basophils # 0.1 10^3/uL (0.0-0.1); Basophils % 0.6 %; Eosinophils # 0.1 10^3/uL (0.0-0.8); Eosinophils % 1.5 %; Hematocrit 37.2 % (37.0-47.0); Hemoglobin 11.9 g/dL (11.5-15.3); Lymphocytes # 1.4 10^3/uL (0.8-4.8); Lymphocytes % 16.8 %; Mean Corpuscular Hemoglobin 27.5 pg (28.0-34.0); Mean Corpuscular Volume 86.1 fl (81-99); Mean Platelet Volume 12.1 fL (7.4-10.4); Monocytes # 0.9 10^3/uL (0.2-0.9); Monocytes % 10.9 %; Neutrophils # 5.73 10^3/uL (1.8-7.7); Nucleated Red Blood Cells % 0 %; Platelet Count 117 10^3/cmm (130-400); Red Blood Count 4.32 10^6/uL (4.1-5.3); Red Cell Distribution Width 15.3 % (12.1-15.1); White Blood Count 8.2 10^3/uL (4.0-10.0)
[2022-03-26 04:50] LABS: Anion Gap 13.3 (5-19); Blood Urea Nitrogen 29 mg/dL (6-20); Calcium 9.2 mg/dL (8.5-10.5); Carbon Dioxide 25 mmol/L (22-29); Chloride 101 mmol/L (98-107); Glomerular Filtration Rate 42.1 mL/min (90-130); Glucose 317 mg/dL (65-115); Magnesium 2.3 mg/dL (1.7-2.3); Osmolality Calculated 298 mOsm/kg (285-295); Potassium 4.3 mmol/L (3.5-5.1); Sodium 135 mmol/L (136-145)
--- NOTE | 2022-03-26 06:00 | ECG_ITS ---
[facility] Test Date: 2022-03-25 Pat Name: Jacquelin Whiteside Department: Room: 259 Gender: Female Project Safety Manager: : 1965 Requested By: Humphrey Hooper Order Number: [id number] Boom MD: Juanjo Rico M.D. Interpretive Statements NAME OF STUDY: LEXISCAN SESTAMIBI STRESS TEST INDICATION: [EF REDUCED, ] Procedure: At the baseline, the blood pressure was 173/78 mmHg with a heart rate of 61 bpm. The electrocardiogram showed normal sinus rhythm, normal axis with normal ST and T's. Baseline artifact was noted. The Lexiscan was infused over a period of 20 seconds. A total of 0.4 mg of Lexiscan was infused. The stress phase was continued for a total of 5 minutes. Heart rate was at the end of stress phase was 62 bpm and a blood pressure of 141/80 mmHg. The EKG at the peak infusion revealed normal sinus rhythm with no significant ST-T wave changes. Sestamibi was injected 20 seconds after the Lexiscan infusion. Blood pressure at the end of recovery phase was 151/73 mmHg with a heart rate of 61 bpm. Conclusion: 1. Normal EKG response to Lexiscan infusion 2. No Lexiscan induced chest pain or cardiac arrhythmia. 3. Normal blood pressure and heart rate response. 4. Sestamibi/sestamibi perfusion scan pending; see separate report. Electronically Signed On 04-19-2022 22:55:00 SHELL PLATER by Juanjo Rico M.D. [id number]
[2022-03-26 08:00] VITALS: BP 152/73; PULSE 63; RESP 15; TEMP 36.6; O2SAT 96
[2022-03-26 08:43] VITALS: PULSE 63; RESP 16; O2SAT 96
[2022-03-26] MEDS: potassium chloride ER 20 mEq Tablet PO (08:46)
[2022-03-26] MEDS: FUROsemide 40 mg Tablet PO (08:46)
[2022-03-26] MEDS: pantoprazole DR 40 mg Tablet PO (08:46)
[2022-03-26] MEDS: isosorbide mononitrate ER 60 mg Tablet PO (08:46)
[2022-03-26] MEDS: insulin lispro 100 unit/1 mL SUBCUT ×2 (08:47→13:06)
[2022-03-26] MEDS: insulin glargine 100 units/1 mL 45 UNIT SUBCUT (11:26)
--- NOTE | 2022-03-26 11:46 | P.DS_ITS ---
Discharge Providers Date of Admission: 03/25/22 04:25 Date of Discharge: March 26, 2022 Attending Provider at Admission: Humphrey Hooper MD Attending Provider at Discharge: Lara Qiu MD Primary Care Provider: Sohail Oliva MD Diagnoses at Discharge Discharge Diagnosis (1) Encephalopathy, hepatic: Status: Acute Reason for Visit Reason for Visit: ams Brief History: Jacquelin Whiteside is a 56 year old female with a past medical history of CABG, diabetes, Morrell, portal hypertension, chronic kidney disease, history of GI bleed, A. fib not a candidate for anticoagulation, recent hospitalization for hepatic encephalopathy, she was given referral to see a prospecting driller helper at [place], on previous admission EF was 45% outpatient stress test was recommended , however she has not been able to finish any? presenting today with worsening of confusion. As per the they both went to bed early, Olya woke up around 11 PM she was very drowsy and weak could not speak properly, no signs of stroke were noticed.? Prompted her visit to the ER.? No recent nausea, vomiting, fever, diar alberto.? She has been compliant with her lactulose, is not sure whether she carries history of sleep apnea. Hospital Course Hospital Course Patient admitted for altered mental status due to hyperammonemia. Lactulose dose was adjusted and rifaximin was started during hospital stay. There was also questionable history of chest pain and therefore stress test was done. Stress test did not show any evidence of ischemia LVEF normal. Delta troponin 1.4. Head CT was unremarkable. No signs of stroke. He was able to have bowel movements during hospital stay. Blood sugar did remain uncontrolled during hospital stay and she was placed on a high-dose intensity sliding scale. Patient uses her wanda glucose sensor to monitor her sugars. Mentation was better and she was back to her baseline. She will be discharged home in stable condition. She already has an appointment with her liver specialist upcoming in the next 2 weeks. She will follow-up in [place] for further management. at bedside updated in detail and all questions answered. Physical Exam Narrative: AO x3 No signs of asterixis Euvolemic Abdomen soft, nontender Legs with mild edema Currently on room air No audible stridor or wheezing Nontender abdomen S1, S2 variable Hypertensive No signs of meningitis Appears stated age Discharge Data Studies Completed and Pending Completed Studies During Hospitalization Category Date Time Status CT head wo con* [id number] Stat Cat Scan 03/25/22 00:32 Completed XR chest 1V portable [id number] Stat Exams 03/25/22 00:32 Completed NM charlie perf SPECT r/s* [id number] Routine Nuc Med 03/25/22 05:33 Completed Pending at discharge Category Date Time Status Sestamibi Stress Test Request Routine Exams 03/26/22 06:00 Ordered Blood Culture Stat Lab 03/25/22 03:45 Results Radiology Impressions Chest X-Ray 03/25/22 00:32 IMPRESSION: No acute findings. Head CT 03/25/22 00:32 IMPRESSION: No acute intracranial abnormality. Laboratory Results WBC 8.2 10^3/uL (4.0-10.0) 03/26/22 04:21 RBC 4.32 10^6/uL (4.1-5.3) 03/26/22 04:21 Hgb 11.9 g/dL (11.5-15.3) 03/26/22 04:21 Hct 37.2 % (37.0-47.0) 03/26/22 04:21 MCV 86.1 fl (81-99) 03/26/22 04:21 MCH 27.5 pg (28.0-34.0) L 03/26/22 04:21 MCHC 32.0 g/dL (30.0-36.0) 03/26/22 04:21 RDW 15.3 % (12.1-15.1) H 03/26/22 04:21 Plt Count 117 10^3/cmm (130-400) L 03/26/22 04:21 MPV 12.1 fL (7.4-10.4) H 03/26/22 04:21 Neut % (Auto) 70.0 % 03/26/22 04:21 Lymph % (Auto) 16.8 % 03/26/22 04:21 Woods % (Auto) 10.9 % 03/26/22 04:21 Eos % (Auto) 1.5 % 03/26/22 04:21 Baso % (Auto) 0.6 % 03/26/22 04:21 Neut # (Auto) 5.73 10^3/uL (1.8-7.7) 03/26/22 04:21 Lymph # (Auto) 1.4 10^3/uL (0.8-4.8) 03/26/22 04:21 Woods # (Auto) 0.9 10^3/uL (0.2-0.9) 03/26/22 04:21 Eos # (Auto) 0.1 10^3/uL (0.0-0.8) 03/26/22 04:21 Baso # (Auto) 0.1 10^3/uL (0.0-0.1) 03/26/22 04:21 Nucleated RBC % (auto) 0 % 03/26/22 04:21 Nucleated RBCs # 0.0 /100WBC 03/26/22 04:21 PT 13.80 SECONDS (12.1-14.9) 03/25/22 00:30 INR 1.03 (0.8-1.2) 03/25/22 00:30 Specimen Type Arterial 03/25/22 01:14 Sample Site Brachial, right 03/25/22 01:14 ABG pH 7.47 (7.35-7.45) H 03/25/22 01:14 ABG pCO2 35.9 mmHg (35-45) 03/25/22 01:14 ABG pO2 90.1 mmHg (80.0-100.0) 03/25/22 01:14 ABG HCO3 26.0 mmol/L (22-26) 03/25/22 01:14 ABG Base Excess 2.4 mmol/L (-2.0-2.0) H 03/25/22 01:14 Mike Test Pos 03/25/22 01:14 Hematocrit 41.1 % (37-47) 03/25/22 01:14 O2 Delivery Device Room air 03/25/22 01:14 FiO2 21.0 % 03/25/22 01:14 Make Up Man ID Bernarda 03/25/22 01:14 Sodium 135 mmol/L (136-145) L 03/26/22 04:21 Potassium 4.3 mmol/L (3.5-5.1) 03/26/22 04:21 Chloride 101 mmol/L (98-107) 03/26/22 04:21 Carbon Dioxide 25 mmol/L (22-29) 03/26/22 04:21 Anion Gap 13.3 (5-19) 03/26/22 04:21 BUN 29 mg/dL (6-20) H 03/26/22 04:21 Creatinine 1.3 mg/dL (0.5-0.9) H 03/26/22 04:21 GFR Calculation 42.1 mL/min (90-130) L 03/26/22 04:21 Glucose 317 mg/dL (65-115) H 03/26/22 04:21 POC Glucose 566 mg/dL (70-110) H* 03/25/22 20:40 Calculated Osmolality 298 mOsm/kg (285-295) H 03/26/22 04:21 Lactate 1.6 mmol/L (0.5-2.2) 03/25/22 00:30 Calcium 9.2 mg/dL (8.5-10.5) 03/26/22 04:21 Magnesium 2.3 mg/dL (1.7-2.3) 03/26/22 04:21 Total Bilirubin 1.6 mg/dL (0.15-1.2) H 03/25/22 00:30 AST 55 U/L (0-32) H 03/25/22 00:30 ALT 34 U/L (0-33) H 03/25/22 00:30 Alkaline Phosphatase 189 U/L (35-105) H 03/25/22 00:30 Ammonia 182 umol/L (11-51) H 03/25/22 02:45 Troponin T Baseline 41 ng/L (0-10) H 03/25/22 00:30 Troponin T 120 Minute 42.44 ng/L (0-10) H 03/25/22 02:45 Delta Troponin T 1.44 ABS# (0-10) 03/25/22 02:45 C-Reactive Protein 6.0 mg/L (0.0-4.9) H 03/26/22 04:21 NT-Pro-B Natriuret Pep 325 pg/mL (0-125) H 03/25/22 00:30 Total Protein 8.5 g/dL (6.6-8.7) 03/25/22 00:30 Albumin 4.1 g/dL (3.5-5.2) 03/25/22 00:30 Globulin 4.4 g/dL (1.3-4.6) 03/25/22 00:30 Lipase 50 U/L (13-60) 03/25/22 00:30 TSH 0.78 uIU/mL (0.27-4.20) 03/25/22 00:30 Urine Color Light yellow (Yellow) 03/25/22 01:20 Urine Appearance Clear (CLEAR) 03/25/22 01:20 Urine pH 8 (5-7) H 03/25/22 01:20 Ur Specific Etlan 1.015 (1.005-1.030) 03/25/22 01:20 Urine Protein Neg (Negative) 03/25/22 01:20 Urine Glucose (UA) 4+ (Normal) H 03/25/22 01:20 Urine Ketones Negative (Negative) 03/25/22 01:20 Urine Blood 2+ (Negative) H 03/25/22 01:20 Urine Nitrate Negative (Negative) 03/25/22 01:20 Urine Bilirubin Neg (Negative) 03/25/22 01:20 Urine Urobilinogen Norm mg/dL (Negative) 03/25/22 01:20 Ur Leukocyte Esterase Negative (Negative) 03/25/22 01:20 Urine RBC 5-10 /hpf (0-2) H 03/25/22 01:20 Urine WBC None /hpf (0-5) 03/25/22 01:20 Ur Squamous Epith Cells 0-4 /hpf (0-5) H 03/25/22 01:20 Amorphous Sediment Not Reportable 03/25/22 01:20 Urine Bacteria 1+ /hpf (NONE) H 03/25/22 01:20 Salicylates < 0.3 mg/dL (3-10) L 03/25/22 00:30 Acetaminophen < 5.0 ug/mL (10-30) L 03/25/22 00:30 Ethyl Alcohol < 10 mg/dL (0-10) 03/25/22 00:30 Vitals Last Vital Signs Temp 98 F 03/26/22 08:00 Pulse 63 03/26/22 08:43 Resp 16 03/26/22 08:43 BP 152/73 03/26/22 08:00 Pulse Ox 96 03/26/22 08:43 O2 Del Method 03/26/22 08:43 Discharge Plan Discharge Patient Disposition: Home Condition: Stable Prescriptions: New Xifaxan 550 mg Tablet 550 mg PO BID 30 Days Qty: 60 0RF Continued lidocaine-prilocaine 2.5-2.5 % cream 1 applic topical .3-4 times daily Qty: 240 3RF Rx Instructions: melox 0.09% lamotr2.5% in lido insulin lispro 100 unit/mL insulin pen See Rx Instructions .ROUTE .COMPLEX Qty: 45 3RF Dose Instruction: INJECT USING SLIDING SCALE THREE TIMES DAILY, MAX OF 51 UNITS PER DOSE MAX OF 153 UNITS PER DAY Rx Instructions: INJECT USING SLIDING SCALE THREE TIMES DAILY, MAX OF 51 UNITS PER DOSE MAX OF 153 UNITS PER DAY isosorbide mononitrate 60 mg tablet extended release 24 hr 60 mg PO DAILY Qty: 90 3RF nitroglycerin [Nitrostat] 0.4 mg tablet, sublingual 0.4 mg SUBLINGUAL DIRECTED PRN (Reason: Chest Pain) Qty: 30 8RF irbesartan 75 mg tablet 75 mg PO DAILY Qty: 90 3RF nadolol 40 mg tablet 40 mg PO DAILY Qty: 90 3RF insulin glargine [Lantus Solostar U-100 Insulin] 100 unit/mL (3 mL) insulin pen 40 unit SUBCUT BID pantoprazole 40 mg tablet,delayed release (DR/EC) 40 mg PO BID furosemide 40 mg tablet 40 mg PO DAILY Qty: 60 0RF Rx Instructions: may take another 40 mg at noon as needed morphine 60 mg tablet extended release 30 mg PO DAILY 30 Days Qty: 60 0RF potassium chloride 20 mEq tablet extended release 20 meq PO DAILY Qty: 60 0RF losartan 50 mg tablet 50 mg PO DAILY Changed lactulose 10 gram/15 mL solution 15 g PO BID Qty: 500 3RF Rx Instructions: take for upto 2-3 bowel movements a day. If greater than 3 BM, reduce dose. Discontinued celecoxib 200 mg capsule 200 mg PO BID No Action (DME) lancing device with lancets Kit See Rx Instructions .ROUTE .MEDSUPPLY Qty: 1 0RF Rx Instructions: As directed (DME) lancets [BD Ultra Fine Lancets] 33 gauge misc See Rx Instructions .ROUTE .MEDSUPPLY Qty: 100 12RF Rx Instructions: test 4 times daily (DME) blood-glucose meter Kit See Rx Instructions .Route Qty: 1 11RF Rx Instructions: wanda 14 with sensors and patches (DME) pen needle, diabetic [BD Ultra-Fine Short Pen Needle] 31 gauge x 5/16 needle See Rx Instructions .ROUTE .MEDSUPPLY Qty: 150 3RF Rx Instructions: test 5 times daily (DME) Blood Glucose Test Strip See Rx Instructions .ROUTE .MEDSUPPLY Qty: 100 6RF Rx Instructions: TEST UP TO 4 TIMES A DAY Discharge Orders: Discharge Order (Routine); Ordered 03/26/22 Ordered By: Lara Qiu Referrals: Sohail Oliva MD [Primary Care Provider] - 04/02/22 3:00 pm Discharge Diet: Usual diet Discharge Activity: Resume usual activity Patient Instructions: Lactulose (By mouth), Rifaximin (By mouth), Encephalopathy (GEN), Opioid Safety Activity Restrictions/Additional Instructions: Please follow up with liver specialist on apr 08 as previously scheduled. If you start to have > 3 BM a day, please reduce dose of lactulose to 10 g twice a day or even once daily if required. For now I have set your dose to be 15 g twice a day. If you experience new symptoms or worsening of existing symptoms, please return to ER. Follow up with PCP as directed. Discharge Attestations Time Spent in Discharge Care*: less than 30 min Status at Discharge: Cognitive status at discharge: cognitively intact , Behavioral status at discharge: cooperative , Quality Metrics Clinical Quality Measures [ No reported AMI, CVA or VTE this stay] Coding Level of Care Code Acute g ESTEPHANIA note Diagnoses Encephalopathy, hepatic K76.82
[2022-03-26 11:57] VITALS: BP 166/72; PULSE 71; O2SAT 98
--- NOTE | 2022-03-26 14:27 | PC.NURSE ---
Discussed discharge follow up appointments, new medications, stopped and changed medications. Verbalized understanding of medications and appointments
[2022-03-26 14:29] VITALS: BP 166/72; PULSE 71; O2SAT 98
== END 2022-03-26 13:25 | disposition home or self-care (01) ==
LOC: ER 03:36 → MEDSURG 05:40
PROVIDERS: Admitting Provider Internal Medicine; Emergency Provider Emergency Medicine; PCP Internal Medicine; Visit Provider Internal Medicine
DX: K76.82 Hepatic encephalopathy (principal); Z95.1 Presence of aortocoronary bypass graft; E11.22 Type 2 diabetes mellitus with diabetic chronic kidney disease; I12.9 Hypertensive chronic kidney disease with stage 1 through stage 4 chronic kidney disease, or unspecified chronic kidney disease; N18.9 Chronic kidney disease, unspecified; I48.91 Unspecified atrial fibrillation; Z79.4 Long term (current) use of insulin; I25.10 Atherosclerotic heart disease of native coronary artery without angina pectoris; I25.2 Old myocardial infarction; E78.5 Hyperlipidemia, unspecified; Z95.0 Presence of cardiac pacemaker; Z87.891 Personal history of nicotine dependence
CPT/HCPCS: 36415; 36416; 36600; 70450; 71045; 78452; 80048; 80053; 80307; 81001; 82140; 82803; 82962; 83605; 83690; 83735; 83880; 84443; 84484; 85025; 85610; 86140; 87040; 93005; 93017; 96372; 96374; 99285; A9500; G0378; J0360; J1815; J2785

== ENCOUNTER → 2022-05-12 10:54 | Outpatient (BNVA) | payer MEDICARE, MEDICAID, SELFPAY | PROVIDERS: PCP Family Medicine; Visit Provider Internal Medicine Cardiovascular Disease | DX: I25.10 Atherosclerotic heart disease of native coronary artery without angina pectoris (principal); I13.0 Hypertensive heart and chronic kidney disease with heart failure and stage 1 through stage 4 chronic kidney disease, or unspecified chronic kidney disease; E11.22 Type 2 diabetes mellitus with diabetic chronic kidney disease; I50.30 Unspecified diastolic (congestive) heart failure; N18.32 Chronic kidney disease, stage 3b; Z87.891 Personal history of nicotine dependence; Z79.4 Long term (current) use of insulin; I48.0 Paroxysmal atrial fibrillation; Z79.01 Long term (current) use of anticoagulants; Z95.1 Presence of aortocoronary bypass graft; Z95.0 Presence of cardiac pacemaker | CPT/HCPCS: 99214 ==

== ENCOUNTER 2022-06-26 20:37 | Observation (INO) | payer MEDICARE, MEDICAID, SELFPAY ==
[2022-06-26 20:39] VITALS: PULSE 80; RESP 18; TEMP 36.6; O2SAT 99; BMI 35.5
--- NOTE | 2022-06-26 20:50 | CTR_ITS ---
PROCEDURE INFORMATION: Exam: CT Head Without Contrast Exam date and time: 06/26/2022 9:44 PM Age: 57 years old Clinical indication: Altered mental status/memory loss; Additional info: AMS TECHNIQUE: Imaging protocol: Computed tomography of the head without contrast. Radiation optimization: All CT scans at this facility use at least one of these dose optimization techniques: automated exposure control; mA and/or kV adjustment per patient size (includes targeted exams where dose is matched to clinical indication); or iterative reconstruction. REPORTING DATA: Count of CT and Cardiac NM exams in prior 12 months: This patient has received 5 known CTs and 0 known cardiac nuclear medicine studies in the 12 months prior to the current study. COMPARISON: CT head wo con* [id number] 03/25/2022 12:44 AM RADIATION DOSE METRICS: Total DLP (mGy-cm): 1054.39 FINDINGS: Brain: No focal hemorrhage or midline shift is identified. Cerebral ventricles: No ventriculomegaly or evidence of acute hydrocephalus. Paranasal sinuses: The partially assessed sinuses are grossly clear. Mastoid air cells: Visualized mastoid air cells are well aerated. Bones/joints: No displaced skull fracture is noted. Soft tissues: Unremarkable. CT/CT head wo con* [id number] IMPRESSION: No acute intracranial abnormality.
--- NOTE | 2022-06-26 20:52 | ED_ITS ---
HPI - Altered Mental Status General: Chief Complaint: Altered Mental Status Stated Complaint: LIVER FAILURE Time Seen by Provider: 06/26/22 20:40 Source: family and EMS Mode of arrival: EMS Limitations: altered mental status History of Present Illness: This patient's evaluation is limited by history. History is obtained from family as well as EMS. Patient cannot provide an accurate history due to her altered mental status. Family reports she was in her normal state of health most of the day. They state that they were in the park with grandchildren earlier today. There was no history of trauma fevers falls etc. reports that she has become more and more confused and less responsive to them over the ensuing 2 to 3 hours this evening. She has a history of liver failure and is on a regular regiment that includes lactulose. Her medicines are controlled by her who placed him in a weekly medication dispenser. He states that she has had no medication misadventures in the past and has not been depressed or sad and never been suicidal. She has not had any recent illness to include fever cough sore throat nausea vomiting diarrhea etc. She does not drink alcohol. States that a similar occurrence earlier this year and was wind up seeing the event coordinator in [place]. Context: history of similar presentation Associated symptoms: Deny homicidal ideation or suicidal ideation Treatments prior to arrival: IV fluid Review of Systems General: Reports: Other (Review of systems provided by .) Const: Denies: fever(s) or chills Card: Denies: palpitations, syncope or pre-syncope Resp: Denies: productive cough or non-productive cough GI: Denies: nausea, vomiting or diarrhea Neuro: Denies: headache(s) or frequent falls Psych: Denies: suicidal ideation or homicidal ideation [facility] ED PFSH: Medical History (HFpEF) heart failure with preserved ejection fraction Acute hepatic encephalopathy Atrial fibrillation Patient had atrial fibrillation postoperatively. Apparently the subsequent Holter monitor and event monitor did not reveal any recurrence of atrial fibrillation. CAD (coronary artery disease) Carpal tunnel syndrome Diabetes mellitus Essential hypertension Hepatomegaly History of TN (myocardial infarction) (~2006) Hyperlipidemia Migraine Neuropathy Pacemaker (~2012) Splenomegaly Sporadic pituitary adenoma Thrombocytopenia Surgical History S/P arterial stent x 3; approximately in 2012, 2013 - [place] S/P brain surgery (~2005) Removal of brain tumor- benign; in the pituitary gland S/P CABG x 2 in 2006 S/P section performed in 1990, 1992 S/P hysterectomy (~1992) converted from C/Section to NAMAN,bilateral salpingectomy, probable ovaries remain. Most likely performed by Dr. Roper. Vulvar abscess (~05/01/15) I&D of left labia majora abscess; performed by K[facility]. Family History Brother Stroke Diabetes Mother , 72 Diabetes Heart disease Hypertension Stroke Father , 68 Diabetes Heart disease Hypertension Stroke Grandmother Diabetes Maternal Other CAD (coronary artery disease) Hyperlipidemia Lung disease Denies family history of Colon cancer Ovarian cancer Clotting disorder Dementia Hypercholesteremia Psychiatric illness Chronic kidney disease (CKD) Breast cancer Anesthesia complication Bleeding disorder Cancer Uterine cancer Thyroid disease Social History Smoking and tobacco status: former smoker (20+ years) Alcohol intake: never Substance/Drug Use: never Caregiver/support person: Yes Lives independently: Yes Household members: spouse Housing: House Marital status: Number of children: 2 Current occupational status: disabled Current gender identity: Female Special sary needs: No Agree to transfusion: Yes Physical Exam Narrative: The patient is has spontaneous eye opening and will answer some questions with yes or no but will not give any detailed responses. No signs of obvious trauma noted on her examination. Const: EXAM LIMITATIONS: altered mental status NUTRITIONAL APPEARANCE: overweight ORIENTATION/CONSCIOUSNESS: Yes awake HENMT: COMMON NORMALS: normocephalic, atraumatic, Normal nasal mucous membranes and turbinates present, moist oral mucous membranes and oropharynx normal HEAD & SCALP: normocephalic and atraumatic FACE & SINUS: normal facial exam and face symmetric NOSE: Normal nasal mucous membranes and turbinates present Eye: COMMON NORMALS: Equal, round and reactive pupils present, EOMs intact bilaterally and conjunctivae normal CONJUNCTIVA: Yes conjunctivae normal PUPIL: Yes Equal, round and reactive pupils present Neck/C-Spine: COMMON NORMALS: full ROM, supple and no meningeal signs Chest: COMMONS NORMALS: normal inspection of the chest Resp: COMMON NORMALS: normal respiratory effort, No use of accessory muscles and clear to auscultation bilaterally AUSCULTATION: clear to auscultation bilaterally Cardio: COMMON NORMALS: regular rate, regular rhythm, No murmurs present (Cardio) and Peripheral pulses 2+ throughout RATE: regular rate RHYTHM: regular rhythm PERIPHERAL PULSES: Peripheral pulses 2+ throughout GI: COMMON NORMALS: Normal to inspection, nondistended, normoactive bowel sounds present, Soft to palpation and non-tender INSPECTION: Yes central obesity PALPATION: Yes Soft to palpation : COMMON NORMALS: Yes no CVA tenderness BLADDER/KIDNEY EXAM: Yes no CVA tenderness Back/Pelvis: COMMON NORMALS: no CVA tenderness and thoracic and lumbar spine normal to inspection Extremity: COMMON NORMALS: normal to inspection, capillary refill normal and no pedal edema Neuro: [place]AL COMA SCALE: document GCS findings [place] coma scale eye opening: To sound [place] coma scale verbal response: Words [place] coma scale motor response: Localising [place] coma scale total score: 11 MENINGEAL SIGNS: Yes no meningeal signs Skin: COMMON NORMALS: no rashes or lesions noted, turgor normal and no jaundice GENERAL SKIN EXAM: no rashes or lesions noted and turgor normal Course Reevaluation(s): Reevaluation #1: Patient is more alert after receiving fluids. Discussed current findings with and son. Will need to place her in observation to continue the process of reducing her serum ammonia level and then at that point determine the best course for her disposition whether it be refer all to a forming roll operator heavy duty for reevaluation or consideration for liver transplant etc. Time: 22:30 Consultations: Consultation #1: Discussed with overnight hospitalist Dr. Medrano who agreed to accept the pa tient. Time: 22:31 Vital Signs: Vital signs: Vital Signs Temperature 97.9 F 06/26/22 20:39 Pulse Rate 80 06/26/22 20:39 Respiratory Rate 18 06/26/22 20:39 Pulse Oximetry 99 06/26/22 20:39 MDM - Altered Mental Status Medical Decision Making Patient with known history of elevated ammonia levels in the past due to nonalcoholic cirrhosis presented to our emergency department by EMS from home with progressive alteration in mental status per EMS and family history. No evidence of trauma, fever, alcohol use or other potential contributing factors known. No evidence or history of suicidality or depression. Clinical examination on presentation reveals her to be altered and encephalopathic. She had a GCS of 11 without any signs of trauma or other stigmata of other conditions on intake. Work-up ensued to ensure no evidence of stroke or other potential etiologies of her altered mental status. Imaging was reassuring. Her ammonia level was noted to be 287 with her transaminases alk phos and other liver parameters consistent with those which we have seen in the past. She received the benefit of IV flui ds and continuous monitoring and reevaluation in the emergency department. She did show some improvement with those interventions. No evidence to suggest infectious process at this time to include SBP, meningitis, other potential perturbations in her biochemistry to affect her ammonia level. She will be admitted to the hospitalist service for further treatment of her elevated ammonia level and response to therapy. Medical Records I reviewed the patient's medical records. Lab Data I reviewed the patient's lab results. 06/26/22 20:50 06/26/22 20:[address] 06/26/22 20:50 IMPRESSION: No acute intracranial abnormality. Laboratory Results WBC 7.8 10^3/uL (4.0-10.0) 06/26/22 20:50 RBC 4.70 10^6/uL (4.1-5.3) 06/26/22 20:50 Hgb 13.4 g/dL (11.5-15.3) 06/26/22 20:50 Hct 41.2 % (37.0-47.0) 06/26/22 20:50 MCV 87.7 fl (81-99) 06/26/22 20:50 MCH 28.5 pg (28.0-34.0) 06/26/22 20:50 MCHC 32.5 g/dL (30.0-36.0) 06/26/22 20:50 RDW 15.2 % (12.1-15.1) H 06/26/22 20:50 Plt Count 160 10^3/cmm (130-400) 06/26/22 20:50 MPV 12.1 fL (7.4-10.4) H 06/26/22 20:50 Neut % (Auto) 71.6 % 06/26/22 20:50 Lymph % (Auto) 14.6 % 06/26/22 20:50 [place] % (Auto) 10.9 % 06/26/22 20:50 Eos % (Auto) 1.9 % 06/26/22 20:50 Baso % (Auto) 0.6 % 06/26/22 20:50 Neut # (Auto) 5.59 10^3/uL (1.8-7.7) 06/26/22 20:50 Lymph # (Auto) 1.1 10^3/uL (0.8-4.8) 06/26/22 20:50 [place] # (Auto) 0.9 10^3/uL (0.2-0.9) 06/26/22 20:50 Eos # (Auto) 0.2 10^3/uL (0.0-0.8) 06/26/22 20:50 Baso # (Auto) 0.1 10^3/uL (0.0-0.1) 06/26/22 20:50 Nucleated RBC % (auto) 0 % 06/26/22 20:50 Nucleated RBCs # 0.0 /100WBC 06/26/22 20:50 Sodium 136 mmol/L (136-145) 06/26/22 20:50 Potassium 4.4 mmol/L (3.5-5.1) 06/26/22 20:50 Chloride 103 mmol/L (98-107) 06/26/22 20:50 Carbon Dioxide 25 mmol/L (22-29) 06/26/22 20:50 Anion Gap 12.4 (5-19) 06/26/22 20:50 BUN 20 mg/dL (6-20) 06/26/22 20:50 Creatinine 1.0 mg/dL (0.5-0.9) H 06/26/22 20:50 GFR Calculation 56.7 mL/min (90-130) L 06/26/22 20:50 Glucose 252 mg/dL (65-115) H 06/26/22 20:50 POC Glucose 284 mg/dL (70-110) H 06/26/22 21:39 Calculated Osmolality 293 mOsm/kg (285-295) 06/26/22 20:50 Calcium 9.1 mg/dL (8.5-10.5) 06/26/22 20:50 Total Bilirubin 1.6 mg/dL (0.15-1.2) H 06/26/22 20:50 AST 77 U/L (0-32) H 06/26/22 20:50 ALT 49 U/L (0-33) H 06/26/22 20:50 Alkaline Phosphatase 225 U/L (35-105) H 06/26/22 20:50 Ammonia 287 umol/L (11-51) H 06/26/22 20:50 Total Protein 7.6 g/dL (6.6-8.7) 06/26/22 20:50 Albumin 3.8 g/dL (3.5-5.2) 06/26/22 20:50 Globulin 3.8 g/dL (1.3-4.6) 06/26/22 20:50 Urine Color Yellow (Yellow) 06/26/22 21:13 Urine Appearance Clear (CLEAR) 06/26/22 21:13 Urine pH 8 (5-7) H 06/26/22 21:13 Ur Specific Platinum 1.015 (1.005-1.030) 06/26/22 21:13 Urine Protein 2+ (Negative) H 06/26/22 21:13 Urine Glucose (UA) 4+ (Normal) H 06/26/22 21:13 Urine Ketones Negative (Negative) 06/26/22 21:13 Urine Blood 2+ (Negative) H 06/26/22 21:13 Urine Nitrate Negative (Negative) 06/26/22 21:13 Urine Bilirubin Neg (Negative) 06/26/22 21:13 Prot Sulfosalicylic Acd Positive (Negative) 06/26/22 21:13 Urine Urobilinogen Norm mg/dL (Negative) 06/26/22 21:13 Ur Leukocyte Esterase Negative (Negative) 06/26/22 21:13 Urine RBC 0-4 /hpf (0-2) H 06/26/22 21:13 Urine WBC 0-4 /hpf (0-5) H 06/26/22 21:13 Ur Squamous Epith Cells 0-4 /hpf (0-5) H 06/26/22 21:13 Amorphous Sediment Not Reportable 06/26/22 21:13 Urine Bacteria Trace /hpf (NONE) 06/26/22 21:13 Salicylates < 0.3 mg/dL (3-10) L 06/26/22 20:50 Urine Opiates Screen Positive ng/mL (Negative) H 06/26/22 21:13 Acetaminophen < 5.0 ug/mL (10-30) L 06/26/22 20:50 Ur Barbiturates Screen Negative ng/mL (Negative) 06/26/22 21:13 Ur Phencyclidine Scrn Negative ng/mL (Negative) 06/26/22 21:13 Ur Amphetamines Screen Negative ng/mL (Negative) 06/26/22 21:13 U Benzodiazepines Scrn Negative ng/mL (Negative) 06/26/22 21:13 Urine Cocaine Screen Negative ng/mL (Negative) 06/26/22 21:13 U Marijuana (THC) Screen Positive ng/mL (Negative) H 06/26/22 21:13 EKG Data EKG 1: I personally reviewed and interpreted this EKG as follows: Interpretation: Contemporaneous review of resting EKG reveals ventricular rate of 60 bpm. Tracing consistent with a paced rhythm with nonspecific ST-T wave changes noted. Tracing is essentially unchanged from recent tracings within the system. Discharge Plan Discharge Patient Disposition: Placed in Observation Clinical Impression: Encephalopathy, Hyperammonemia Condition: Stable Prescriptions: No Action lactulose 10 gram/15 mL solution 20 g PO TID PRN (Reason: laxative effect) 30 Days Qty: 946 5RF Rx Instructions: goal 2-3 bowel movements a day. If >3BM reduce dose ondansetron HCl 4 mg tablet 4 mg PO Q8H PRN (Reason: nausea and vomiting) Qty: 30 0RF (DME) lancing device with lancets Kit See Rx Instructions .ROUTE .MEDSUPPLY Qty: 1 0RF Rx Instructions: As directed (DME) lancets [BD Ultra Fine Lancets] 33 gauge misc See Rx Instructions .ROUTE .MEDSUPPLY Qty: 100 12RF Rx Instructions: test 4 times daily (DME) blood-glucose meter Kit See Rx Instructions .Route Qty: 1 11RF Rx Instructions: mauricio 14 with sensors and patches (DME) pen needle, diabetic [BD Ultra-Fine Short Pen Needle] 31 gauge x 5/16 needle See Rx Instructions .ROUTE .MEDSUPPLY Qty: 150 3RF Rx Instructions: test 5 times daily (DME) Blood Glucose Test Strip See Rx Instructions .ROUTE .MEDSUPPLY Qty: 100 6RF Rx Instructions: TEST UP TO 4 TIMES A DAY lidocaine-prilocaine 2.5-2.5 % cream 1 applic topical .3-4 times daily Qty: 240 3RF Rx Instructions: melox 0.09% lamotr2.5% in lido insulin lispro 100 unit/mL insulin pen See Rx Instructions .ROUTE .COMPLEX Qty: 45 3RF Dose Instruction: INJECT USING SLIDING SCALE THREE TIMES DAILY, MAX OF 51 UNITS PER DOSE MAX OF 153 UNITS PER DAY Rx Instructions: INJECT USING SLIDING SCALE THREE TIMES DAILY, MAX OF 51 UNITS PER DOSE MAX OF 153 UNITS PER DAY isosorbide mononitrate 60 mg tablet extended release 24 hr 60 mg PO DAILY Qty: 90 3RF nitroglycerin [Nitrostat] 0.4 mg tablet, sublingual 0.4 mg SUBLINGUAL DIRECTED PRN (Reason: Chest Pain) Qty: 30 8RF irbesartan 75 mg tablet 75 mg PO DAILY Qty: 90 3RF nadolol 40 mg tablet 40 mg PO DAILY Qty: 90 3RF insulin glargine [Lantus Solostar U-100 Insulin] 100 unit/mL (3 mL) insulin pen 50 unit SUBCUT BID 30 Days Qty: 30 0RF morphine 30 mg tablet extended release 60 mg PO Q12H 60 Days Qty: 240 0RF Xifaxan 550 mg tablet 550 mg PO BID 30 Days Qty: 180 1RF (DME) FreeStyle Mauricio 14 Day [place] Misc See Rx Instructions .Route Qty: 1 2RF Rx Instructions: As directed (DME) FreeStyle Mauricio 14 Day Sensor Kit See Rx Instructions .Route Qty: 1 2RF Rx Instructions: As directed pantoprazole 40 mg tablet,delayed release (DR/EC) 40 mg PO BID furosemide 40 mg tablet 40 mg PO DAILY Qty: 60 0RF Rx Instructions: may take another 40 mg at noon as needed potassium chloride 20 mEq tablet extended release 20 meq PO DAILY Qty: 60 0RF Referrals: Jovan Singer MD [Primary Care Provider] - Patient Instructions: Hyponatremia (ED), Benzodiazepine Use Disorder (ED), Dementia (ED), Non-diabetic Hypoglycemia (ED), Hypoglycemia in a Person with Diabetes (ED), Concussion (ED), Alcohol Intoxication (ED), Subarachnoid Hemorrhage (GEN), Altered Mental Status (ED) Coding Level of Care Code ED Equipment Maint Tech for Russ Baez
--- NOTE | 2022-06-26 20:59 | ECG_ITS ---
[facility] Test Date: 2022-06-26 Pat Name: Jacquelin Whiteside Department: Room: Gender: Female Glazier Supervisor: : [id number] Requested By: Kenneth Koch Order Number: [id number] Boom MD: Praneeth Joseph M.D. Measurements Intervals [place] Rate: 60 P: 148 VT: 264 QRS: 50 QRSD: 98 T: 84 QT: 456 QTc: 458 Interpretive Statements ELECTRONIC ATRIAL PACEMAKER MODERATE ST DEPRESSION [0.05+ mV ST DEPRESSION] Compared to ECG 03/25/2022 02:51:02 Prolonged QT interval no longer present ST (T wave) deviation still present Electronically Signed On 06-26-2022 21:24:26 CDT by Praneeth Joseph M.D. [id number]
[2022-06-26 21:18] LABS: Basophils # 0.1 10^3/uL (0.0-0.1); Basophils % 0.6 %; Eosinophils # 0.2 10^3/uL (0.0-0.8); Eosinophils % 1.9 %; Hematocrit 41.2 % (37.0-47.0); Hemoglobin 13.4 g/dL (11.5-15.3); Lymphocytes # 1.1 10^3/uL (0.8-4.8); Lymphocytes % 14.6 %; Mean Corpuscular HGB Conc 32.5 g/dL (30.0-36.0); Mean Corpuscular Hemoglobin 28.5 pg (28.0-34.0); Mean Corpuscular Volume 87.7 fl (81-99); Mean Platelet Volume 12.1 fL (7.4-10.4); Monocytes # 0.9 10^3/uL (0.2-0.9); Monocytes % 10.9 %; Neutrophils # 5.59 10^3/uL (1.8-7.7); Neutrophils % 71.6 %; Nucleated Red Blood Cells % 0 %; Platelet Count 160 10^3/cmm (130-400); Red Cell Distribution Width 15.2 % (12.1-15.1); White Blood Count 7.8 10^3/uL (4.0-10.0)
[2022-06-26 21:19] LABS: Alanine Aminotransferase 49 U/L (0-33); Albumin Level 3.8 g/dL (3.5-5.2); Alkaline Phosphatase 225 U/L (35-105); Anion Gap 12.4 (5-19); Aspartate Amino Transferase 77 U/L (0-32); Blood Urea Nitrogen 20 mg/dL (6-20); Calcium 9.1 mg/dL (8.5-10.5); Carbon Dioxide 25 mmol/L (22-29); Chloride 103 mmol/L (98-107); Globulin 3.8 g/dL (1.3-4.6); Glomerular Filtration Rate 56.7 mL/min (90-130); Glucose 252 mg/dL (65-115); Osmolality Calculated 293 mOsm/kg (285-295); Potassium 4.4 mmol/L (3.5-5.1); Sodium 136 mmol/L (136-145); Total Bilirubin 1.6 mg/dL (0.15-1.2); Total Protein 7.6 g/dL (6.6-8.7)
[2022-06-26 21:20] LABS: Acetaminophen < 5.0 ug/mL (10-30); Ammonia 287 umol/L (11-51); Salicylate < 0.3 mg/dL (3-10)
[2022-06-26 21:26] LABS: Add Urine Culture? No; Add Urine Microscopic? YES; Bacteria Urine TRACE /hpf; Bilirubin Urine Neg (Negative); Blood Urine 2+ (Negative); Glucose Urine UA 4+ (Normal); Ketones Urine Negative (Negative); Leukocyte Esterase Urine Negative (Negative); Nitrate Urine Negative (Negative); Protein Urine 2+ (Negative); RBC Urine 0-4 /hpf (0-2); Specific Gravity, Urine 1.015 (1.005-1.030); Squamous Epithelial Cell Urine 0-4 /hpf (0-5); Sulfosalicylic Acid Urine Positive (Negative); Urine Appearance Clear (CLEAR); Urine Color Yellow (Yellow); Urobilinogen Urine Norm (Negative); WBC Urine 0-4 /hpf (0-5); pH Urine 8 (5-7)
[2022-06-26 21:30] LABS: Amphetamines Screen Urine Negative (Negative); Barbiturates Screen Urine Negative (Negative); Benzodiazepines Screen Urine Negative (Negative); Cocaine Screen Urine Negative (Negative); Opiate Screen Urine Positive (Negative); PCP Screen Urine Negative (Negative); THC Screen Urine Positive (Negative)
[2022-06-26] MEDS: sodium chloride 0.9% 1,000 ML 999 ML IV (21:36)
[2022-06-26 21:42] LABS: Glucose Point of Care 284 mg/dL (70-110)
[2022-06-26 22:30] VITALS: BMI 35.5
--- NOTE | 2022-06-26 23:04 | P.HP_ITS ---
Providers/Chief Complaint Admitting Physician: Claudio Haque MD Primary Care Provider: Jovan Singer MD Chief Complaint: LIVER FAILURE History of Present Illness Jacquelin Whiteside is a 57 year old female with a past history of recurrent hospitalization for hepatic encephalopathy, hyperammonemia, [place], portal hypertension, CABG, insulin-dependent type 2 diabetes mellitus, CKD, history of GI bleed, history of atrial fibrillation on anticoagulation, recent hospitalization for hepatic encephalopathy, who presents to [facility] due to increased confusion. Currently patient is alert to person, to place, not to time, she can follow commands, but history taking is difficult, she gets stuck on questions. According to family numbers at bedside, she was doing well today, but throughout the afternoon she was becoming more confused, becoming less responsive, they tell me that recently her rifaximin has been making her sick, so she stopped taking it, if she was can see your primary care provider about seeing if that there was something else she could use. No fevers reported. No dysuria reported. No shortness of breath. No abdominal pain. No diarrhea. No facial droop. No slurring of her words. No focal weakness. Review of Systems Card: Denies: chest pain Resp: Denies: dyspnea GI: Denies: abdominal pain, nausea or vomiting : Denies: flank pain or difficulty voiding Neuro: Reports: confusion; Denies: headache(s) or vertigo Medications/Allergies Home Medications Medication Instructions Recorded Confirmed Last Taken Type lancing device with lancets kit #1 ea 03/14/20 05/30/22 Unknown Rx lancets 33 gauge (BD Ultra Fine #100 ea 05/15/20 05/30/22 Unknown Rx Lancets) blood-glucose meter #1 ea 11/05/20 05/30/22 Unknown Rx blood sugar diagnostic (Blood #100 ea 07/23/21 05/30/22 Unknown Rx Glucose Test strips) pen needle, diabetic 31 gauge x #150 ea 07/23/21 05/30/22 Unknown Rx 5/16 (BD Ultra-Fine Short Pen Needle) lidocaine-prilocaine 2.5 %-2.5 % 1 applic topical .3-4 times daily 10/23/21 05/30/22 Unknown Rx topical cream #240 grams insulin lispro 100 unit/mL See Rx Instructions .Route 12/05/21 05/30/22 Unknown Rx subcutaneous pen .COMPLEX #45 mL isosorbide mononitrate 60 mg 60 mg PO DAILY #90 tabs 12/18/21 05/30/22 Unknown R x tablet,extended release 24 hr nitroglycerin 0.4 mg sublingual 0.4 mg sublingual DIRECTED PRN 12/18/21 05/30/22 Unknown Rx tablet (Nitrostat) Chest Pain #30 tabs irbesartan 75 mg tablet 75 mg PO DAILY #90 tabs 12/27/21 05/30/22 Unknown Rx nadolol 40 mg tablet 40 mg PO DAILY #90 tabs 12/30/21 05/30/22 Unknown Rx pantoprazole 40 mg tablet,delayed 40 mg PO BID 03/06/22 05/30/22 Unknown History release furosemide 40 mg tablet 40 mg PO DAILY #60 tabs 03/07/22 05/30/22 Unknown Rx potassium chloride 20 mEq 20 meq PO DAILY #60 tabs 03/07/22 05/30/22 Unknown Rx tablet,extended release insulin glargine 100 unit/mL (3 50 unit (0.5 mL) SUBCUT BID 30 03/29/22 05/30/22 Unknown Rx mL) subcutaneous pen (Lantus days #30 mL Solostar U-100 Insulin) morphine 30 mg tablet,extended 60 mg PO Q12H 60 days #240 tabs 05/12/22 05/30/22 Unknown Rx release rifaximin 550 mg tablet (Xifaxan) 550 mg PO BID cirrhosis 30 days 05/26/22 05/30/22 Unknown Rx #180 tabs lactulose 10 gram/15 mL oral 20 g (30 mL) PO TID PRN laxative 05/30/22 05/30/22 Unknown Rx solution effect 30 days #946 mL ondansetron HCl 4 mg tablet 4 mg PO Q8H PRN nausea and 05/30/22 05/30/22 Unknown Rx vomiting #30 tabs flash glucose scanning reader #1 ea 06/18/22 Unknown Rx (FreeStyle Mauricio 14 Day [place]) flash glucose sensor (FreeStyle #1 ea 06/19/22 Unknown Rx Mauricio 14 Day Sensor kit) Allergies Allergy/AdvReac Type Severity Reaction Status Date / Time insulin degludec Allergy ALGY-Difficulty Verified 05/30/22 09:41 [From Tresiba FlexTouch Breathing U-100] levofloxacin Allergy SWELLING Verified 05/30/22 09:41 promethazine Allergy confusion Verified 05/30/22 09:41 duloxetine AdvReac ADR-Swelling Verified 05/30/22 09:41 of the Eye PFSH Acute PFSH: Medical History (HFpEF) heart failure with preserved ejection fraction Acute hepatic encephalopathy Atrial fibrillation Patient had atrial fibrillation postoperatively. Apparently the subsequent Holter monitor and event monitor did not reveal any recurrence of atrial f ibrillation. CAD (coronary artery disease) Carpal tunnel syndrome Diabetes mellitus Essential hypertension Hepatomegaly History of [place] (myocardial infarction) (~2006) Hyperlipidemia Migraine Neuropathy Pacemaker (~2012) Splenomegaly Sporadic pituitary adenoma Thrombocytopenia Surgical History S/P arterial stent x 3; approximately in 2012, 2013 - [place] S/P brain surgery (~2005) Removal of brain tumor- benign; in the pituitary gland S/P CABG x 2 in 2006 S/P section performed in 1990, 1992 S/P hysterectomy (~1992) converted from C/Section to NAMAN,bilateral salpingectomy, probable ovaries remain. Most likely performed by Dr. Roper. Vulvar abscess (~05/01/15) I&D of left labia majora abscess; performed by Kiko. Family History Brother Stroke Diabetes Mother , 72 Diabetes Heart disease Hypertension Stroke Father , 68 Diabetes Heart disease Hypertension Stroke Grandmother Diabetes Maternal Other CAD (coronary artery disease) Hyperlipidemia Lung disease Denies family history of Colon cancer Ovarian cancer Clotting disorder Dementia Hypercholesteremia Psychiatric illness Chronic kidney disease (CKD) Breast cancer Anesthesia complication Bleeding disorder Cancer Uterine cancer Thyroid disease Social History Smoking and tobacco status: former smoker (20+ years) Alcohol intake: never Substance/Drug Use: never Caregiver/support person: Yes Lives independently: Yes Household members: spouse Housing: House Marital status: Number of children: 2 Current occupational status: disabled Current gender identity: Female Special sary needs: No Agree to transfusion: Yes Vitals/I&O/Wt Last Vital Signs Temp 97.9 F 06/26/22 20:39 Pulse 80 06/26/22 20:39 Resp 18 06/26/22 20:39 Pulse Ox 99 06/26/22 20:39 Weight last 48 hrs Weight 99.79 kg Physical Exam Const: COMMON NORMALS: no acute distress EXAM LIMITATIONS: altered mental status ORIENTATION/CONSCIOUSNESS: Yes awake, Yes oriented to person, Yes oriented to place and Yes confused; not oriented to time HENMT: COMMON NORMALS: normocephalic HEAD & SCALP: normocephalic Eye: COMMON NORMALS: Equal, round and reactive pupils present and EOMs intact bilaterally Neck/C-Spine: COMMON NORMALS: no JVD Lymph: LYMPHATIC: no lymphadenopathy noted Resp: COMMON NORMALS: normal respiratory effort, No retractions, No use of accessory muscles and clear to auscultation bilaterally AUSCULTATION: clear to auscultation bilaterally Cardio: COMMON NORMALS: no JVD, regular rate, regular rhythm, S1 normal heart sound present and S2 normal heart sound present RATE: regular rate RHYTHM: regular rhythm HEART SOUNDS: S1 normal heart sound present and S2 normal heart sound present GI: COMMON NORMALS: Normal to inspection, nondistended, normoactive bowel sounds present, Soft to palpation and non-tender Extremity: COMMON NORMALS: no pedal edema Neuro: COMMON NORMALS: CN's II-XII intact bilaterally, moves all extremities and no focal motor deficits Urinary Catheter Management: Rodas: Cath Placed During This Visit: yes Urinary Catheter Date of Insertion: 06/26/22 Urinary Catheter Time of Insertion: 21:14 Data 06/26/22 20:50 06/26/22 20:50 A&P Assessment and plan (1) Encephalopathy: (2) Hyperammonemia: (3) Diabetes mellitus: (4) Atherosclerosis of coronary artery of [place] heart without angina pectoris: (5) Hyperlipidemia: (6) Diabetic neuropathy: Qualifiers: Diabetes mellitus type: type 2 (7) Atrial fibrillation: Qualifiers: Atrial fibrillation type: paroxysmal Qualified Code(s): I48.0 - Paroxysmal atrial fibrillation (8) Stage 3b chronic kidney disease (CKD): (9) Cirrhosis: Qualifiers: Hepatic cirrhosis type: unspecified hepatic cirrhosis Ascites presence: without ascites Qualified Code(s): K74.60 - Unspecified cirrhosis of liver (10) (HFpEF) heart failure with preserved ejection fraction: Qualifiers: Heart failure chronicity: chronic Qualified Code(s): I50.32 - Chronic diastolic (congestive) heart failure (11) Essential hypertension: Plan Hepatic encephalopathy, hyperammonemia -We will reduce rifaximin dose to half tablet twice daily due to concerns for intolerance -Lactulose 30 g every 8 hours might can have to consider rectal administration -Follow ammonia levels -IV fluids -I am going to order a ultrasound abdomen, start her on Rocephin for possible SBP although I feel unlikely as she has no abdominal pain or abdominal tenderness no fevers inflammatory markers ordered -If she does have ascites she will need a paracentesis -Blood cultures ordered -Type 2 diabetes mellitus, decrease Lantus to 20 units every 12 hours, low-dose sliding scale -Continue blood pressure medications -Monitor mentation closely, neurochecks, aspiration precautions -Full code -DVT prophylaxis CDs, anticoagulation relatively contraindicated given her history of GI bleeds Attestations Medical Necessity Statement*: Patient requires hospitalization, inpatient, greater than 2 minutes, for hepatic encephalopathy, hyperammonemia Diagnoses Encephalopathy G93.40 Hyperammonemia E72.20 Diabetes mellitus E11.9 Atherosclerosis of coronary artery of [place] heart without angina pectoris I25.10 Hyperlipidemia E78.5 Diabetic neuropathy E11.40 Diabetes mellitus type: type 2 Atrial fibrillation I48.0 Atrial fibrillation type: paroxysmal Stage 3b chronic kidney disease (CKD) N18.32 Cirrhosis K74.60 Hepatic cirrhosis type: unspecified hepatic cirrhosis Ascites presence: without ascites (HFpEF) heart failure with preserved ejection fraction I50.32 Heart failure chronicity: chronic Essential hypertension I10
[2022-06-26 23:11] VITALS: PULSE 80; RESP 18; TEMP 36.6; O2SAT 99
[2022-06-26 23:15] VITALS: BP 186/84; PULSE 56; RESP 18; TEMP 36.3; O2SAT 96
--- NOTE | 2022-06-26 23:15 | US_ITS ---
WS: [id number] ULTRASOUND ABDOMEN CLINICAL INFORMATION: cirrhosis, ascites? COMPARISON: None. FINDINGS: Liver Size: Hepatomegaly Craniocaudal length: 21.3 cm. Echogenicity: Coarse Surface nodularity: Cirrhotic Mass (size and location): Incidental millimeters cyst LEFT hepatic lobe Bile ducts Intrahepatic ducts: Normal. Common bile duct diameter: 0.5 cm. Gallbladder Layering sludge with shadowing calculi. Gallstones: Present Gallbladder sludge: Present Gallbladder wall thickening: None. Pericholecystic fluid: None. Sonographic Morillo sign: Absent. Pancreas Normal as visualized. Right kidney: Normal. Hydronephrosis: None. Size: 10.7 cm x 6.0 cm x 4.2 cm. Abdominal aorta and IVC Visualized portions are normal. Ascites: Trace US/US liver [id number] IMPRESSION: 1. Hepatomegaly with cirrhotic contour to the liver. Trace ascites. 2. Layering sludge in the gallbladder with shadowing microcalculi. No gallblad [place] wall thickening or pericholecystic fluid. 3. Normal common bile duct. 4. No hydronephrosis in RIGHT kidney.
[2022-06-26 23:37] LABS: Lactic Sepsis W/Reflex 1.9 mmol/L (0.5-2.2)
[2022-06-26 23:41] LABS: INR 1.02 (0.8-1.2)
[2022-06-26 23:58] LABS: Estmated Average Glucose 246; Hemoglobin A1C 10.2 % (4.0-6.0)
[2022-06-27] VITALS: BP 186/84; PULSE 61; RESP 16; TEMP 36.3; O2SAT 94
[2022-06-27 00:07] LABS: Procalcitonin 0.17 ng/mL (0-0.5); Thyroid Stimulating Hormone 0.82 uIU/mL (0.27-4.20)
[2022-06-27] MEDS: lactulose oral liq 20 gm/30 mL UDC 30 GM PO ×2 (00:14→06:15)
[2022-06-27] MEDS: cefTRIAXone 1,000 MG in sodium chloride 0.9% (plus) 50 ML 100 MG IV (00:14)
[2022-06-27] MEDS: sodium chloride 0.9% 1,000 ML 75 ML IV (00:15)
[2022-06-27] MEDS: insulin glargine 100 units/1 mL 20 UNIT SUBCUT (00:17)
[2022-06-27 00:18] LABS: Chol HDL Ratio 5.97 mg/dL (0.0-4.40); Cholesterol 215 mg/dL (0-200); HDL Cholesterol 36 mg/dL (60-100); LDL Cholesterol Calculated 132 mg/dL (50-129); LDL HDL Ratio 3.67 RATIO (0.00-3.22); Triglycerides 236 mg/dL (0-150)
[2022-06-27 03:40] VITALS: O2SAT 97
[2022-06-27 04:00] VITALS: BP 98/59; PULSE 60; RESP 16; TEMP 36.4; O2SAT 96
[2022-06-27 05:01] LABS: Basophils % 0.5 %; Eosinophils # 0.1 10^3/uL (0.0-0.8); Eosinophils % 1.3 %; Hemoglobin 10.9 g/dL (11.5-15.3); Lymphocytes # 1.1 10^3/uL (0.8-4.8); Lymphocytes % 18.2 %; Mean Corpuscular Hemoglobin 29.1 pg (28.0-34.0); Mean Corpuscular Volume 88.2 fl (81-99); Mean Platelet Volume 11.6 fL (7.4-10.4); Monocytes # 0.7 10^3/uL (0.2-0.9); Monocytes % 12.1 %; Neutrophils # 4.13 10^3/uL (1.8-7.7); Neutrophils % 67.6 %; Nucleated Red Blood Cells % 0 %; Platelet Count 99 10^3/cmm (130-400); Red Blood Count 3.74 10^6/uL (4.1-5.3); Red Cell Distribution Width 15.3 % (12.1-15.1); White Blood Count 6.1 10^3/uL (4.0-10.0)
[2022-06-27 05:26] LABS: Alanine Aminotransferase 40 U/L (0-33); Albumin Level 3.1 g/dL (3.5-5.2); Alkaline Phosphatase 175 U/L (35-105); Aspartate Amino Transferase 62 U/L (0-32); Blood Urea Nitrogen 17 mg/dL (6-20); Calcium 8.3 mg/dL (8.5-10.5); Carbon Dioxide 23 mmol/L (22-29); Chloride 110 mmol/L (98-107); Globulin 3.2 g/dL (1.3-4.6); Glomerular Filtration Rate 64.1 mL/min (90-130); Glucose 162 mg/dL (65-115); Magnesium 2.2 mg/dL (1.7-2.3); Osmolality Calculated 299 mOsm/kg (285-295); Phosphorus 2.6 mg/dL (2.5-4.5); Sodium 142 mmol/L (136-145); Total Bilirubin 1.4 mg/dL (0.15-1.2); Total Protein 6.3 g/dL (6.6-8.7)
[2022-06-27 05:31] LABS: Slide Review Slide Review Perform
[2022-06-27 08:00] VITALS: BP 165/76; PULSE 60; RESP 17; TEMP 36.7; O2SAT 97
--- NOTE | 2022-06-27 08:24 | P.DS_ITS ---
Discharge Providers Date of Admission: 06/26/22 23:15 Date of Discharge: June 27, 2022 Attending Provider at Admission: Claudio Haque MD Attending Provider at Discharge: Humphrey Hooper MD Primary Care Provider: Jovan Singer MD Diagnoses at Discharge Discharge Diagnosis (1) Encephalopathy: Status: Acute (2) Hyperammonemia: Status: Acute (3) Diabetes mellitus: Status: Acute (4) Atherosclerosis of coronary artery of [place] heart without angina pectoris: Status: Acute (5) Hyperlipidemia: Status: Acute (6) Diabetic neuropathy: Status: Acute Qualifiers: Diabetes mellitus type: type 2 (7) Atrial fibrillation: Status: Acute Qualifiers: Atrial fibrillation type: paroxysmal Qualified Code(s): I48.0 - Paroxysmal atrial fibrillation Permanent problem details: Patient had atrial fibrillation postoperatively. Apparently the subsequent Holter monitor and event monitor did not reveal any recurrence of atrial fibrillation. (8) Stage 3b chronic kidney disease (CKD): Status: Acute (9) Cirrhosis: Status: Acute Qualifiers: Hepatic cirrhosis type: unspecified hepatic cirrhosis Ascites presence: without ascites Qualified Code(s): K74.60 - Unspecified cirrhosis of liver (10) (HFpEF) heart failure with preserved ejection fraction: Status: Acute Qualifiers: Heart failure chronicity: chronic Qualified Code(s): I50.32 - Chronic diastolic (congestive) heart failure (11) Essential hypertension: Status: Acute Reason for Visit Reason for Visit: LIVER FAILURE Hospital Course Hospital Course 57-year female with history of [place], portal hypertension, presented to the hospital for worsening confusion, [place] and became confused that prompted her visit to the ER. Patient is sta ting that she has been very compliant with her lactulose 10 g twice daily she cannot take rifaximin which can cause pretty bad nausea for her. At the time of my evaluation on 06/27 patient is awake and alert able to tell me about her medical history she has an appointment with chauffeur in [place] in October. I did genetic counsellor her to have liver screening every year to make sure she liver cirrhosis does not transition towards hepatocellular cancer. I have increased the dose of lactulose 20 g twice daily, I have stopped Imdur, she should get Lasix and spironolactone. Is no sign of infection no signs of UTI. U tox positive for marijuana and opioids. Patient and her both agreeable to go home Physical Exam Narrative: Awake and alert Nonfocal neuro exam pleasant and cooperative GCS 15 No sign of hepatic encephalopathy at the time of evaluation Hemodynamically stable Abdomen soft Urinary Catheter Management: Rodas: Cath Placed During This Visit: yes Reason for Continuing Indwelling Catheter: Other Urinary Catheter Date of Insertion: 06/26/22 Urinary Catheter Time of Insertion: 21:14 Discharge Data Studies Completed and Pending Completed Studies During Hospitalization Category Date Time Status CT head wo con* [id number] Stat Cat Scan 06/26/22 20:50 Completed Pending at discharge Category Date Time Status Blood Culture Routine Lab 06/26/22 23:34 Results US liver [id number] Routine Ultrasound 06/26/22 23:15 Taken Radiology Impressions Head CT 06/26/22 20:50 IMPRESSION: No acute intracranial abnormality. Laboratory Results WBC 6.1 10^3/uL (4.0-10.0) 06/27/22 04:51 RBC 3.74 10^6/uL (4.1-5.3) L 06/27/22 04:51 Hgb 10.9 g/dL (11.5-15.3) L 06/27/22 04:51 Hct 33.0 % (37.0-47.0) L 06/27/22 04:51 MCV 88.2 fl (81-99) 06/27/22 04:51 MCH 29.1 pg (28.0-34.0) 06/27/22 04:51 MCHC 33.0 g/dL (30.0-36.0) 06/27/22 04:51 RDW 15.3 % (12.1-15.1) H 06/27/22 04:51 Plt Count 99 10^3/cmm (130-400) L D 06/27/22 04:51 MPV 11.6 fL (7.4-10.4) H 06/27/22 04:51 Neut % (Auto) 67.6 % 06/27/22 04:51 Lymph % (Auto) 18.2 % 06/27/22 04:51 [place] % (Auto) 12.1 % 06/27/22 04:51 Eos % (Auto) 1.3 % 06/27/22 04:51 Baso % (Auto) 0.5 % 06/27/22 04:51 Neut # (Auto) 4.13 10^3/uL (1.8-7.7) 06/27/22 04:51 Lymph # (Auto) 1.1 10^3/uL (0.8-4.8) 06/27/22 04:51 [place] # (Auto) 0.7 10^3/uL (0.2-0.9) 06/27/22 04:51 Eos # (Auto) 0.1 10^3/uL (0.0-0.8) 06/27/22 04:51 Baso # (Auto) 0.0 10^3/uL (0.0-0.1) 06/27/22 04:51 Nucleated RBC % (auto) 0 % 06/27/22 04:51 Nucleated RBCs # 0.0 /100WBC 06/27/22 04:51 PT 13.70 SECONDS (12.1-14.9) 06/26/22 20:29 INR 1.02 (0.8-1.2) 06/26/22 20:29 Sodium 142 mmol/L (136-145) 06/27/22 04:51 Potassium 4.0 mmol/L (3.5-5.1) 06/27/22 04:51 Chloride 110 mmol/L (98-107) H 06/27/22 04:51 Carbon Dioxide 23 mmol/L (22-29) 06/27/22 04:51 Anion Gap 13.0 (5-19) 06/27/22 04:51 BUN 17 mg/dL (6-20) 06/27/22 04:51 Creatinine 0.9 mg/dL (0.5-0.9) 06/27/22 04:51 GFR Calculation 64.1 mL/min (90-130) L 06/27/22 04:51 Glucose 162 mg/dL (65-115) H 06/27/22 04:51 POC Glucose 284 mg/dL (70-110) H 06/26/22 21:39 Estimat Average Glucose 246 06/26/22 20:50 Hemoglobin A1c 10.2 % (4.0-6.0) H 06/26/22 20:50 Calculated Osmolality 299 mOsm/kg (285-295) H 06/27/22 04:51 Lactic Acid 1.9 mmol/L (0.5-2.2) 06/26/22 20:50 Calcium 8.3 mg/dL (8.5-10.5) L 06/27/22 04:51 Phosphorus 2.6 mg/dL (2.5-4.5) 06/27/22 04:51 Magnesium 2.2 mg/dL (1.7-2.3) 06/27/22 04:51 Total Bilirubin 1.4 mg/dL (0.15-1.2) H 06/27/22 04:51 AST 62 U/L (0-32) H 06/27/22 04:51 ALT 40 U/L (0-33) H 06/27/22 04:51 Alkaline Phosphatase 175 U/L (35-105) H 06/27/22 04:51 Ammonia 287 umol/L (11-51) H 06/26/22 20:50 C-Reactive Protein 4.0 mg/L (0.0-4.9) 06/26/22 23:25 Total Protein 6.3 g/dL (6.6-8.7) L 06/27/22 04:51 Albumin 3.1 g/dL (3.5-5.2) L 06/27/22 04:51 Globulin 3.2 g/dL (1.3-4.6) 06/27/22 04:51 Triglycerides 236 mg/dL (0-150) H 06/26/22 23:25 Cholesterol 215 mg/dL (0-200) H 06/26/22 23:25 LDL Cholesterol, Calc 132 mg/dL (50-129) H 06/26/22 23:25 HDL Cholesterol 36 mg/dL (60-100) L 06/26/22 23:25 LDL/HDL Ratio 3.67 RATIO (0.00-3.22) H 06/26/22 23:25 Cholesterol/HDL Ratio 5.97 mg/dL (0.0-4.40) H 06/26/22 23:25 Procalcitonin 0.17 ng/mL (0-0.5) 06/26/22 23:25 TSH 0.82 uIU/mL (0.27-4.20) 06/26/22 23:25 Urine Color Yellow (Yellow) 06/26/22 21:13 Urine Appearance Clear (CLEAR) 06/26/22 21:13 Urine pH 8 (5-7) H 06/26/22 21:13 Ur Specific [place] 1.015 (1.005-1.030) 06/26/22 21:13 Urine Protein 2+ (Negative) H 06/26/22 21:13 Urine Glucose (UA) 4+ (Normal) H 06/26/22 21:13 Urine Ketones Negative (Negative) 06/26/22 21:13 Urine Blood 2+ (Negative) H 06/26/22 21:13 Urine Nitrate Negative (Negative) 06/26/22 21:13 Urine Bilirubin Neg (Negative) 06/26/22 21:13 Prot Sulfosalicylic Acd Positive (Negative) 06/26/22 21:13 Urine Urobilinogen Norm mg/dL (Negative) 06/26/22 21:13 Ur Leukocyte Esterase Negative (Negative) 06/26/22 21:13 Urine RBC 0-4 /hpf (0-2) H 06/26/22 21:13 Urine WBC 0-4 /hpf (0-5) H 06/26/22 21:13 Ur Squamous Epith Cells 0-4 /hpf (0-5) H 06/26/22 21:13 Amorphous Sediment Not Reportable 06/26/22 21:13 Urine Bacteria Trace /hpf (NONE) 06/26/22 21:13 Salicylates < 0.3 mg/dL (3-10) L 06/26/22 20:50 Urine Opiates Screen Positive ng/mL (Negative) H 06/26/22 21:13 Acetaminophen < 5.0 ug/mL (10-30) L 06/26/22 20:50 Ur Barbiturates Screen Negative ng/mL (Negative) 06/26/22 21:13 Ur Phencyclidine Scrn Negative ng/mL (Negative) 06/26/22 21:13 Ur Amphetamines Screen Negative ng/mL (Negative) 06/26/22 21:13 U Benzodiazepines Scrn Negative ng/mL (Negative) 06/26/22 21:13 Urine Cocaine Screen Negative ng/mL (Negative) 06/26/22 21:13 U Marijuana (THC) Screen Positive ng/mL (Negative) H 06/26/22 21:13 Vitals Last Vital Signs Temp 97.6 F 06/27/22 04:00 Pulse 60 06/27/22 04:00 Resp 16 06/27/22 04:00 BP 98/59 06/27/22 04:00 Pulse Ox 96 06/27/22 04:00 O2 Del Method Room Air 06/27/22 04:00 Discharge Plan Discharge Patient Disposition: Home Condition: Stable Prescriptions: New spironolactone 50 mg tablet 50 mg PO DAILY Qty: 60 4RF lactulose 20 gram/30 mL solution 20 g PO BID Qty: 3000 8RF Continued ondansetron HCl 4 mg tablet 4 mg PO Q8H PRN (Reason: nausea and vomiting) Qty: 30 0RF (DME) lancing device with lancets Kit See Rx Instructions .ROUTE .MEDSUPPLY Qty: 1 0RF Rx Instructions: As directed (DME) lancets [BD Ultra Fine Lancets] 33 gauge misc See Rx Instructions .ROUTE .MEDSUPPLY Qty: 100 12RF Rx Instructions: test 4 times daily (DME) blood-glucose meter Kit See Rx Instructions .Route Qty: 1 11RF Rx Instructions: mauricio 14 with sensors and patches (DME) pen needle, diabetic [BD Ultra-Fine Short Pen Needle] 31 gauge x 5/16 needle See Rx Instructions .ROUTE .MEDSUPPLY Qty: 150 3RF Rx Instructions: test 5 times daily (DME) Blood Glucose Test Strip See Rx Instructions .ROUTE .MEDSUPPLY Qty: 100 6RF Rx Instructions: TEST UP TO 4 TIMES A DAY insulin lispro 100 unit/mL insulin pen See Rx Instructions .ROUTE .COMPLEX Qty: 45 3RF Dose Instruction: INJECT USING SLIDING SCALE THREE TIMES DAILY, MAX OF 51 UNITS PER DOSE MAX OF 153 UNITS PER DAY Rx Instructions: INJECT USING SLIDING SCALE THREE TIMES DAILY, MAX OF 51 UNITS PER DOSE MAX OF 153 UNITS PER DAY nitroglycerin [Nitrostat] 0.4 mg tablet, sublingual 0.4 mg SUBLINGUAL DIRECTED PRN (Reason: Chest Pain) Qty: 30 8RF irbesartan 75 mg tablet 75 mg PO DAILY Qty: 90 3RF insulin glargine [Lantus Solostar U-100 Insulin] 100 unit/mL (3 mL) insulin pen 50 unit SUBCUT BID 30 Days Qty: 30 0RF morphine 30 mg tablet extended release 60 mg PO Q12H 60 Days Qty: 240 0RF Rx Instructions: 30 MG QAM AND 60 MG QPM (DME) FreeStyle Mauricio 14 Day [place] Misc See Rx Instructions .Route Qty: 1 2RF Rx Instructions: As directed (DME) FreeStyle Mauricio 14 Day Sensor Kit See Rx Instructions .Route Qty: 1 2RF Rx Instructions: As directed pantoprazole 40 mg tablet,delayed release (DR/EC) 40 mg PO BID furosemide 40 mg tablet 40 mg PO DAILY Qty: 60 0RF Rx Instructions: may take another 40 mg at noon as needed potassium chloride 20 mEq tablet extended release 20 meq PO DAILY Qty: 60 0RF Discontinued lactulose 10 gram/15 mL solution 20 g PO TID PRN (Reason: laxative effect) 30 Days Qty: 946 5RF Rx Instructions: goal 2-3 bowel movements a day. If >3BM reduce dose isosorbide mononitrate 60 mg tablet extended release 24 hr 60 mg PO DAILY Qty: 90 3RF nadolol 40 mg tablet 40 mg PO DAILY Qty: 90 3RF Discharge Orders: Discharge Order (Routine); Ordered 06/27/22 Ordered By: Humphrey Hooper Referrals: Jovan Singer MD [Primary Care Provider] - Discharge Activity: Increase activity as tolerated Patient Instructions: Hyponatremia (ED), Benzodiazepine Use Disorder (ED), Dementia (ED), Non-diabetic Hypoglycemia (ED), Hypoglycemia in a Person with Diabetes (ED), Concussion (ED), Alcohol Intoxication (ED), Subarachnoid Hemorrhage (GEN), Altered Mental Status (ED), Opioid Safety Discharge Attestations Time Spent in Discharge Care*: greater than 30 min Status at Discharge: Cognitive status at discharge: cognitively intact , Behavioral status at discharge: cooperative , Quality Metrics Clinical Quality Measures [ No reported AMI, CVA or VTE this stay] Coding Level of Care Code Acute Code for Chg Fwd Diagnoses Encephalopathy G93.40 Hyperammonemia E72.20 Diabetes mellitus E11.9 Atherosclerosis of coronary artery of [place] heart without angina pectoris I25.10 Hyperlipidemia E78.5 Diabetic neuropathy E11.40 Diabetes mellitus type: type 2 Atrial fibrillation I48.0 Atrial fibrillation type: paroxysmal Stage 3b chronic kidney disease (CKD) N18.32 Cirrhosis K74.60 Hepatic cirrhosis type: unspecified hepatic cirrhosis Ascites presence: without ascites (HFpEF) heart failure with preserved ejection fraction I50.32 Heart failure chronicity: chronic Essential hypertension I10
[2022-06-27] MEDS: pantoprazole DR 40 mg Tablet PO (08:36)
[2022-06-27] MEDS: FUROsemide 40 mg Tablet PO (08:36)
[2022-06-27] MEDS: isosorbide mononitrate ER 60 mg Tablet PO (08:36)
[2022-06-27] MEDS: potassium chloride ER 20 mEq Tablet PO (08:36)
[2022-06-27] MEDS: hyDRALAzine 20 mg/mL INJ 1 mL 5 MG IVP (08:40)
--- NOTE | 2022-06-27 09:00 | PC.NURSE ---
Rodas Catheter removed intact. Patient tolerated well.
--- NOTE | 2022-06-27 10:00 | PC.NURSE ---
Patient left to go her some clothes.
[2022-06-27 11:11] VITALS: BP 165/76; PULSE 60; RESP 17; TEMP 36.7; O2SAT 97
--- NOTE | 2022-06-27 11:31 | PC.NURSE ---
Iv removed intact. Patient tolerated well. Patient is A&Ox3. Respirations even and non-labored on room air. Reviewed patient discharge with patient and . Reviewed follow up appointment and added medications. Patient and verbalized understanding. Patient wheel chaired to private car.
== END 2022-06-27 11:11 | disposition home or self-care (01) ==
LOC: ER 22:34 → MEDSURG 22:42
PROVIDERS: Admitting Provider Family Medicine; Emergency Provider Emergency Medicine; PCP Family Medicine; Visit Provider Internal Medicine
DX: G93.40 Encephalopathy, unspecified (principal); E72.20 Disorder of urea cycle metabolism, unspecified; I13.0 Hypertensive heart and chronic kidney disease with heart failure and stage 1 through stage 4 chronic kidney disease, or unspecified chronic kidney disease; N18.32 Chronic kidney disease, stage 3b; I50.32 Chronic diastolic (congestive) heart failure; E11.22 Type 2 diabetes mellitus with diabetic chronic kidney disease; K74.60 Unspecified cirrhosis of liver; K75.81 Nonalcoholic steatohepatitis (NASH); K76.6 Portal hypertension; R41.82 Altered mental status, unspecified; E78.5 Hyperlipidemia, unspecified; D69.6 Thrombocytopenia, unspecified; I25.10 Atherosclerotic heart disease of native coronary artery without angina pectoris; I25.2 Old myocardial infarction; Z79.4 Long term (current) use of insulin; Z87.891 Personal history of nicotine dependence; Z95.1 Presence of aortocoronary bypass graft
CPT/HCPCS: 36415; 36416; 51702; 70450; 76705; 80053; 80061; 80306; 80307; 81001; 82140; 82962; 83036; 83605; 83735; 84100; 84145; 84443; 85025; 85610; 86140; 87040; 93005; 94664; 96361; 96365; 96372; 96375; 99285; G0378; J0360; J0696; J1815; J7030

== ENCOUNTER 2022-07-18 11:27 | Observation (INO) | payer MEDICARE, MEDICAID, SELFPAY ==
[2022-07-18] VITALS (11 sets, daily range): BP systolic 120–192; BP diastolic 78–103; PULSE 62–116; RESP 16–30; TEMP 36.6–36.7; O2SAT 94–98; BMI 35.5
--- NOTE | 2022-07-18 11:40 | XR_ITS ---
WS: [id number] Portable AP supine chest, 07/18/2022 Clinical Data: ams Comparison: Portable chest, 03/25/2022 Findings: No nodules, masses or effusions are seen. The heart is slightly enlarged. The pulmonary vas cularity is not increased. No pneumonia or pneumothorax is seen. Midline sternotomy sutures are prese nt. The patient has a 2-lead cardiac pacemaker with the generator in the left axilla. The patient's c lothing obscures only minimal detail over the middle mediastinum. XR/XR chest 1V portable [id number] Impression: Cardiomegaly.
--- NOTE | 2022-07-18 11:44 | W.ED.AMS ---
HPI - Altered Mental Status General: Chief Complaint: Altered Mental Status Stated Complaint: AMS Time Seen by Provider: 07/18/22 11:36 Limitations: altered mental status History of Present Illness: Patient presents to the ER by EMS with altered mental status. Patient was found is oriented about 3 hours ago by family members. Patient is alert to loud verbal stimuli and painful stimuli but will not answer questions or follow commands. Patient has a history of liver cancer, and is on daily morphine at home. Review of Systems General: Reports: ROS unobtainable due to mental status PFSH ED PFSH: Medical History (HFpEF) heart failure with preserved ejection fraction Acute hepatic encephalopathy Atherosclerosis of coronary artery of [place] heart without angina pectoris Atrial fibrillation Patient had atrial fibrillation postoperatively. Apparently the subsequent Holter monitor and event monitor did not reveal any recurrence of atrial fibrillation. CAD (coronary artery disease) Carpal tunnel syndrome Cirrhosis Diabetes mellitus Diabetic neuropathy Encephalopathy Essential hypertension Hepatomegaly History of [place] (myocardial infarction) (~2006) Hyperammonemia Hyperlipidemia Migraine Neuropathy Pacemaker (~2012) Splenomegaly Sporadic pituitary adenoma Stage 3b chronic kidney disease (CKD) Thrombocytopenia Surgical History S/P arterial stent x 3; approximately in 2012, 2013 - [facility] S/P brain surgery (~2005) Removal of brain tumor- benign; in the pituitary gland S/P CABG x 2 in 2006 S/P section performed in 1990, 1992 S/P hysterectomy (~1992) converted from C/Section to NAMAN,bilateral salpingectomy, probable ovaries remain. Most likely performed by Dr. Roper. Vulvar abscess (~05/01/15) I&D of left labia majora abscess; performed by [facility]. Family History Brother Stroke Diabetes Mother , 72 Diabetes Heart disease Hypertension Stroke Father , 68 Diabetes Heart disease Hypertension Stroke Grandmother Diabetes Maternal Other CAD (coronary artery disease) Hyperlipidemia Lung disease Denies family history of Colon cancer Ovarian cancer Clotting disorder Dementia Hypercholesteremia Psychiatric illness Chronic kidney disease (CKD) Breast cancer Anesthesia complication Bleeding disorder Cancer Uterine cancer Thyroid disease Social History Smoking and tobacco status: former smoker (20+ years) Alcohol intake: never Substance/Drug Use: never Caregiver/support person: Yes Lives independently: Yes Household members: spouse Housing: House Marital status: Number of children: 2 Current occupational status: disabled Current gender identity: Female Special sary needs: No Agree to transfusion: Yes Physical Exam Const: EXAM LIMITATIONS: altered mental status HENMT: COMMON NORMALS: normocephalic, atraumatic, external ears normal, Normal external nose present and moist oral mucous membranes HEAD & SCALP: normocephalic and atraumatic NOSE: Normal external nose present EXTERNAL EAR: Yes external ears normal Eye: COMMON NORMALS: Equal, round and reactive pupils present, EOMs intact bilaterally, conjunctivae normal and no scleral icterus CONJUNCTIVA: Yes conjunctivae normal PUPIL: Yes Equal, round and reactive pupils present Neck/C-Spine: COMMON NORMALS: no JVD Chest: COMMONS NORMALS: normal inspection of the chest and normal palpation of entire chest wall Resp: COMMON NORMALS: normal respiratory effort, No retractions, No use of accessory muscles and clear to auscultation bilaterally AUSCULTATION: clear to auscultation bilaterally Cardio: COMMON NORMALS: no JVD, regular rate, regular rhythm, S1 normal heart sound present, S2 normal heart sound present, No gallops present (Cardio), No clicks present (Cardio), No murmurs present (Cardio) and No rub (Cardio) RATE: regular rate RHYTHM: regular rhythm HEART SOUNDS: S1 normal heart sound present and S2 normal heart sound present GI: COMMON NORMALS: Normal to inspection, nondistended, normoactive bowel sounds present, Soft to palpation, non-tender, No hepatosplenomegaly present and no masses PALPATION: Yes Soft to palpation and Yes No hepatosplenomegaly present Neuro: SENSORIUM/ORIENTATION: Yes obtunded Course Vital Signs: Vital signs: Vital Signs Temperature 97.9 F 07/18/22 11:35 Pulse Rate 85 07/18/22 11:35 Respiratory Rate 30 H 07/18/22 12:51 Pulse Oximetry 97 07/18/22 12:51 Oxygen Delivery Me thod Room Air 07/18/22 11:35 MDM - Altered Mental Status Medical Decision Making Patient presented by EMS with altered mental status. Patient does have a history of cirrhosis with hepatic encephalopathy and is currently on lactulose and Xifaxan. Lab work was obtained which did show her ammonia was greater than 200. Chest x-ray was benign head CT was benign. Lab work showed elevated liver enzymes and mildly elevated BUN/creatinine. Patient was given 1 dose of Narcan to see if it would wake her up before the lab work came back. This did arouse her little bit but she was still very altered. Is felt she is suffering mainly from hepatic encephalopathy. Dr. Lavell Rinaldi was consulted and agreed for admission to [facility] for further work-up and evaluation. Differential Diagnosis Likely altered mental status; Unlikely alcoholic intoxication, delirium, dementia, hypoglycemia, hyponatremia, subarachnoid hemorrhage or sepsis Medical Records I reviewed the patient's medical records. Lab Data I reviewed the patient's lab results. 07/18/22 12:30 07/18/22 12:30 Radiology Impressions Chest X-Ray 07/18/22 11:40 Impression: Cardiomegaly. Head CT 07/18/22 13:21 IMPRESSION: 1. No evidence of intracranial hemorrhage or mass effect. 2. Mild small vessel changes. Mild parenchymal volume loss. 3. No acute intracranial findings. Laboratory Results WBC 12.6 10^3/uL (4.0-10.0) H 07/18/22 12:30 RBC 4.75 10^6/uL (4.1-5.3) 07/18/22 12:30 Hgb 13.4 g/dL (11.5-15.3) 07/18/22 12:30 Hct 41.7 % (37.0-47.0) 07/18/22 12:30 MCV 87.8 fl (81-99) 07/18/22 12:30 MCH 28.2 pg (28.0-34.0) 07/18/22 12:30 MCHC 32.1 g/dL (30.0-36.0) 07/18/22 12:30 RDW 14.6 % (12.1-15.1) 07/18/22 12:30 Plt Count 197 10^3/cmm (130-400) 07/18/22 12:30 MPV 12.2 fL (7.4-10.4) H 07/18/22 12:30 Neut % (Auto) 69.3 % 07/18/22 12:30 Lymph % (Auto) 20.9 % 07/18/22 12:30 Posey % (Auto) 7.9 % 07/18/22 12:30 Eos % (Auto) 1.0 % 07/18/22 12:30 Baso % (Auto) 0.6 % 07/18/22 12:30 Neut # (Auto) 8.74 10^3/uL (1.8-7.7) H 07/18/22 12:30 Lymph # (Auto) 2.6 10^3/uL (0.8-4.8) 07/18/22 12:30 Posey # (Auto) 1.0 10^3/uL (0.2-0.9) H 07/18/22 12:30 Eos # (Auto) 0.1 10^3/uL (0.0-0.8) 07/18/22 12:30 Baso # (Auto) 0.1 10^3/uL (0.0-0.1) 07/18/22 12:30 Nucleated RBC % (auto) 0 % 07/18/22 12:30 Nucleated RBCs # 0.0 /100WBC 07/18/22 12:30 Sodium 134 mmol/L (136-145) L 07/18/22 12:30 Potassium 4.7 mmol/L (3.5-5.1) 07/18/22 12:30 Chloride 95 mmol/L (98-107) L 07/18/22 12:30 Carbon Dioxide 15 mmol/L (22-29) L 07/18/22 12:30 Anion Gap 28.7 (5-19) H 07/18/22 12:30 BUN 24 mg/dL (6-20) H 07/18/22 12:30 Creatinine 1.4 mg/dL (0.5-0.9) H 07/18/22 12:30 GFR Calculation 38.5 mL/min (90-130) L 07/18/22 12:30 Glucose 325 mg/dL (65-115) H 07/18/22 12:30 Calculated Osmolality 295 mOsm/kg (285-295) 07/18/22 12:30 Calcium 9.1 mg/dL (8.5-10.5) 07/18/22 12:30 Phosphorus 3.1 mg/dL (2.5-4.5) 07/18/22 12:30 Magnesium 2.2 mg/dL (1.7-2.3) 07/18/22 12:30 Total Bilirubin 2.2 mg/dL (0.15-1.2) H 07/18/22 12:30 AST 73 U/L (0-32) H 07/18/22 12:30 ALT 56 U/L (0-33) H 07/18/22 12:30 Alkaline Phosphatase 253 U/L (35-105) H 07/18/22 12:30 Ammonia 212 umol/L (11-51) H 07/18/22 12:30 NT-Pro-B Natriuret Pep 133 pg/mL (0-125) H 07/18/22 12:30 Total Protein 8.6 g/dL (6.6-8.7) 07/18/22 12:30 Albumin 4.3 g/dL (3.5-5.2) 07/18/22 12:30 Globulin 4.3 g/dL (1.3-4.6) 07/18/22 12:30 EKG Data EKG 1: I personally reviewed and interpreted this EKG as follows: EKG interpretation date: 07/18/22 EKG interpretation time: 11:45 Prior EKG tracings: not available for review Interpretation: EKG showed ventricular rate of 61 bpm, VA interval 244, QRS duration 102, QTc 459, chronic atrial pacemaker, nonspecific ST and T wave abnormalities. Discharge Plan Discharge Patient Disposition: Placed in Observation Clinical Impression: Altered mental status, Encephalopathy, hepatic Condition: Stable Prescriptions: No Action morphine 30 mg tablet extended release See Rx Instructions PO .COMPLEX 30 Days Qty: 90 0RF Rx Instructions: 30mg (1 tab) po every AM and 60mg (2 tabs) po every PM ondansetron HCl 4 mg tablet 4 mg PO Q8H PRN (Reason: nausea and vomiting) Qty: 30 0RF lactulose 20 gram/30 mL solution 30 g PO TID 30 Days Qty: 4050 8RF furosemide 40 mg tablet 80 mg PO DAILY Qty: 60 1RF potassium chloride 20 mEq tablet extended release 40 meq PO DAILY Qty: 60 1RF (DME) lancing device with lancets Kit See Rx Instructions .ROUTE .MEDSUPPLY Qty: 1 0RF Rx Instructions: As directed (DME) lancets [BD Ultra Fine Lancets] 33 gauge misc See Rx Instructions .ROUTE .MEDSUPPLY Qty: 100 12RF Rx Instructions: test 4 times daily (DME) blood-glucose meter Kit See Rx Instructions .Route Qty: 1 11RF Rx Instructions: mauricio 14 with sensors and patches (DME) Blood Glucose Test Strip See Rx Instructions .ROUTE .MEDSUPPLY Qty: 100 6RF Rx Instructions: TEST UP TO 4 TIMES A DAY insulin lispro 100 unit/mL insulin pen See Rx Instructions .ROUTE .COMPLEX Qty: 45 3RF Dose Instruction: INJECT USING SLIDING SCALE THREE TIMES DAILY, MAX OF 51 UNITS PER DOSE MAX OF 153 UNITS PER DAY Rx Instructions: INJECT USING SLIDING SCALE THREE TIMES DAILY, MAX OF 51 UNITS (DME) FreeStyle Mauricio 14 Day [place] Misc See Rx Instructions .Route Qty: 1 2RF Rx Instructions: As directed (DME) FreeStyle Mauricio 14 Day Sensor Kit See Rx Instructions .Route Qty: 1 2RF Rx Instructions: As directed (DME) pen needle, diabetic [BD Ultra-Fine Short Pen Needle] 31 gauge x 5/16 needle See Rx Instructions .ROUTE .MEDSUPPLY Qty: 150 3RF Rx Instructions: test 5 times daily pantoprazole 40 mg tablet,delayed release (DR/EC) 40 mg PO BID Lantus Solostar U-100 Insulin 100 unit/mL (3 mL) insulin pen 45 unit SUBCUT BID Nitrostat 0.4 mg Tablet, Sublingual 0.4 mg SUBLINGUAL Q5M PRN (Reason: Chest Pain) Rx Instructions: do not exceed 3 doses per episode irbesartan 75 mg tablet 75 mg PO QAM Referrals: Jovan Singer MD [Primary Care Provider] - Patient Instructions: Hyponatremia (ED), Benzodiazepine Use Disorder (ED), Dementia (ED), Non-diabetic Hypoglycemia (ED), Hypoglycemia in a Person with Diabetes (ED), Concussion (ED), Alcohol Intoxication (ED), Subarachnoid Hemorrhage (GEN), Altered Mental Status (ED) Coding Level of Care Code ED Car Wash Attendant Automatic for Russ Baez
--- NOTE | 2022-07-18 11:45 | ECG_ITS ---
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 Measurements Intervals [place] Rate: 61 P: 125 FL: 244 QRS: 42 QRSD: 102 T: 118 QT: 455 QTc: 461 Interpretive Statements ELECTRONIC ATRIAL PACEMAKER NONSPECIFIC ST & T-WAVE ABNORMALITY Compared to ECG 06/26/2022 21:10:30 T-wave abnormality now present ST (T wave) deviation no longer present Electronically Signed On 07-18-2022 12:30:15 CDT by Cici Ty M.D. [id number]
[2022-07-18] MEDS: LORazepam 2 mg/mL INJ 1 mL 1 MG IVP (12:17)
[2022-07-18 12:36] LABS: Basophils # 0.1 10^3/uL (0.0-0.1); Basophils % 0.6 %; Eosinophils # 0.1 10^3/uL (0.0-0.8); Hematocrit 41.7 % (37.0-47.0); Hemoglobin 13.4 g/dL (11.5-15.3); Lymphocytes # 2.6 10^3/uL (0.8-4.8); Lymphocytes % 20.9 %; Mean Corpuscular HGB Conc 32.1 g/dL (30.0-36.0); Mean Corpuscular Hemoglobin 28.2 pg (28.0-34.0); Mean Corpuscular Volume 87.8 fl (81-99); Mean Platelet Volume 12.2 fL (7.4-10.4); Monocytes % 7.9 %; Neutrophils # 8.74 10^3/uL (1.8-7.7); Neutrophils % 69.3 %; Nucleated Red Blood Cells % 0 %; Platelet Count 197 10^3/cmm (130-400); Red Blood Count 4.75 10^6/uL (4.1-5.3); Red Cell Distribution Width 14.6 % (12.1-15.1); White Blood Count 12.6 10^3/uL (4.0-10.0)
[2022-07-18] MEDS: morphine 4 mg/mL SDV 1 mL 2 MG IVP (12:51)
[2022-07-18 12:53] LABS: Ammonia 212 umol/L (11-51)
[2022-07-18 13:05] LABS: Alanine Aminotransferase 56 U/L (0-33); Albumin Level 4.3 g/dL (3.5-5.2); Alkaline Phosphatase 253 U/L (35-105); Anion Gap 28.7 (5-19); Aspartate Amino Transferase 73 U/L (0-32); Blood Urea Nitrogen 24 mg/dL (6-20); Calcium 9.1 mg/dL (8.5-10.5); Carbon Dioxide 15 mmol/L (22-29); Chloride 95 mmol/L (98-107); Globulin 4.3 g/dL (1.3-4.6); Glomerular Filtration Rate 38.5 mL/min (90-130); Glucose 325 mg/dL (65-115); Magnesium 2.2 mg/dL (1.7-2.3); NT Pro B Type Natriuretic Pept 133 pg/mL (0-125); Osmolality Calculated 295 mOsm/kg (285-295); Phosphorus 3.1 mg/dL (2.5-4.5); Potassium 4.7 mmol/L (3.5-5.1); Sodium 134 mmol/L (136-145); Total Bilirubin 2.2 mg/dL (0.15-1.2); Total Protein 8.6 g/dL (6.6-8.7)
--- NOTE | 2022-07-18 13:06 | PC.NURSE ---
NARCAN ADMINISTERED. PT BECAME CONVULSIVE AND STARTED TO AROUSE. PT ANSWERED TO VERBAL STIMULI ONCE. PT RR INCREASED TO APPROX 32BPM. PT IS RESTLESS.
--- NOTE | 2022-07-18 13:21 | CT_ITS ---
WS: [id number] CT HEAD TECHNIQUE: Noncontrast CT of the head obtained from the skullbase to the vertex. CLINICAL INFORMATION: ams COMPARISON: June 26, 2022 DLP: 1068.[address] scans at [facility] use at least one of these dose optimization techniques: automated e xposure control; mA and/or kV adjustment per patient size (includes targeted exams where dose is matc hed to clinical indication); or iterative reconstruction. FINDINGS: No evidence of intracranial hemorrhage or mass effect. Ventricular system and basal cisterns are angel nt. Mild small vessel changes with mild parenchymal volume loss. No extra-axial fluid collections. No evidence of mass or mass effect. Paranasal sinuses and mastoid air cells are well aerated. .Normal visualized soft tissues. CT/CT head wo con* [id number] IMPRESSION: 1. No evidence of intracranial hemorrhage or mass effect. 2. Mild small vessel changes. Mild parenchymal volume loss. 3. No acute intracranial findings.
--- NOTE | 2022-07-18 13:21 | PC.NURSE ---
MORPHINE ADMINISTERED. RR HAVE SLOWED AND RESTLESSNESS HAS DECREASED. PT IS WARM AND DIAPHORETIC. PHYSICIAN NOTIFIED. NO NEW ORDERS AT THIS TIME.
--- NOTE | 2022-07-18 13:53 | PC.PHAR ---
pts verified pts medications-pts states the dr ba nadolol 40mg daily filled 06/25/22 90d/s,spironolactone 50mg daily filled 06/27/22 30d/s losartan 50mg daily filled 02/27/22 90d/s imdur er 60mg daily filled 06/30/22 90d/s and celebrex 200mg bid filled 04/01/22 90d/s- pts states the pt only takes the medications entered notes are made in the pharmacy comments
--- NOTE | 2022-07-18 15:11 | P.HP_ITS ---
Providers/Chief Complaint Admitting Physician: Lavell Rinaldi MD Primary Care Provider: Jovan Singer MD Chief Complaint: AMS History of Present Illness Jacquelin Whiteside is a 57 year old female with a past medical history significant for decompensated liver cirrhosis with hx of hepatic encephalopathy and variceal bleed who presents to the emergency department with altered mental status x1 day. Upon my evaluation, spouse is bedside. Patient's mentation had significant improved since initially presenting to the emergency department. She is unable to recall the events leading up the ED visit. She does recall seeing her primary care physician in clinic the other day. reports she was very confused. She endorses compliance with medications. Denies infectious symptoms including fevers, chills, or nausea. She has a hx of liver cirrhosis, varices, and hepatic encephalopathy. Reports compliance with lactulose but also taking additional stool softener/laxatives including milk of mag. Reports previously tried rifaximin but made her have n/v. Also tried Aldactone with intolerable side effects. She reports she has established care with one visit to GI in [place]. Pending EGD w/ Dr Cook for screening. Review of Systems Narrative: A complete review of systems was obtained and is negative except as stated in HPI. Medications/Allergies Home Medications Medication Instructions Recorded Confirmed Last Taken Type lancing device with lancets kit #1 ea 03/14/20 07/18/22 Unknown Rx lancets 33 gauge (BD Ultra Fine #100 ea 05/15/20 07/18/22 Unknown Rx Lancets) blood-glucose meter #1 ea 11/05/20 07/18/22 Unknown Rx blood sugar diagnostic (Blood #100 ea 07/23/21 07/18/22 Unknown Rx Glucose Test strips) insulin lispro 100 unit/mL See Rx Instructions .Route 12/05/21 07/18/22 Unknown Rx subcutaneous pen .COMPLEX #45 mL pantoprazole 40 mg tablet,delayed 40 mg PO BID 03/06/22 07/18/22 Unknown History release ondansetron HCl 4 mg tablet 4 mg PO Q8H PRN nausea and 05/30/22 07/18/22 Unknown Rx vomiting #30 tabs flash glucose scanning reader #1 ea 06/18/22 07/18/22 Unknown Rx (FreeStyle Mauricio 14 Day [place]) flash glucose sensor (FreeStyle #1 ea 06/19/22 07/18/22 Unknown Rx Mauricio 14 Day Sensor kit) morphine 30 mg tablet,extended See Rx Instructions PO .COMPLEX 30 07/03/22 07/18/22 Unknown Rx release days #90 tabs lactulose 20 gram/30 mL oral 30 g (45 mL) PO TID 30 days #4,050 07/09/22 07/18/22 Unknown Rx solution mL pen needle, diabetic 31 gauge x #150 ea 07/15/22 07/18/22 Unknown Rx 5/16 (BD Ultra-Fine Short Pen Needle) furosemide 40 mg tablet 80 mg PO DAILY #60 tabs 07/17/22 07/18/22 07/17/22 Rx 60mg not started new potassium chloride 20 mEq 40 meq PO DAILY #60 tabs 07/17/22 07/18/22 Unknown Rx tablet,extended release insulin glargine 100 unit/mL (3 45 unit SUBCUT BID 07/18/22 07/18/22 Unknown History mL) subcutaneous pen (Lantus Solostar U-100 Insulin) irbesartan 75 mg tablet 75 mg PO QAM 07/18/22 07/18/22 Unknown History nitroglycerin 0.4 mg sublingual 0.4 mg sublingual Q5M PRN Chest 07/18/22 07/18/22 Unknown History tablet (Nitrostat) Pain Allergies Allergy/AdvReac Type Severity Reaction Status Date / Time insulin degludec Allergy ALGY-Difficulty Verified 07/17/22 14:54 [From Tresiba FlexTouch Breathing U-100] levofloxacin Allergy SWELLING Verified 07/17/22 14:54 promethazine Allergy confusion Verified 07/17/22 14:54 rifaximin AdvReac Intermediate vomiting Verified 07/17/22 14:54 duloxetine AdvReac ADR-Swelling Verified 07/17/22 14:54 of the Eye PFSH Acute PFSH: Medical History (Updated 07/18/22 @ 23:27 by Lavell Rinaldi MD) (HFpEF) heart failure with preserved ejection fraction Acute hepatic encephalopathy Atherosclerosis of coronary artery of [place] heart without angina pectoris Atrial fibrillation Patient had atrial fibrillation postoperatively. Apparently the subsequent Holter monitor and event monitor did not reveal any recurrence of atrial fibrillation. CAD (coronary artery disease) Carpal tunnel syndrome Cirrhosis Diabetes mellitus Diabetic neuropathy Encephalopathy Essential hypertension Hepatomegaly History of [place] (myocardial infarction) (~2006) Hyperammonemia Hyperlipidemia Migraine Neuropathy Pacemaker (~2012) Splenomegaly Sporadic pituitary adenoma Stage 3b chronic kidney disease (CKD) Thrombocytopenia Surgical History S/P arterial stent x 3; approximately in 2012, 2013 - [place] S/P brain surgery (~2005) Removal of brain tumor- benign; in the pituitary gland S/P CABG x 2 in 2006 S/P section performed in 1990, 1992 S/P hysterectomy (~1992) converted from C/Section to NAMAN,bilateral salpingectomy, probable ovaries remain. Most likely performed by Dr. Roper. Vulvar abscess (~05/01/15) I&D of left labia majora abscess; performed by Kiko. Family History Brother Stroke Diabetes Mother , 72 Diabetes Heart disease Hypertension Stroke Father , 68 Diabetes Heart disease Hypertension Stroke Grandmother Diabetes Maternal Other CAD (coronary artery disease) Hyperlipidemia Lung disease Denies family history of Colon cancer Ovarian cancer Clotting disorder Dementia Hypercholesteremia Psychiatric illness Chronic kidney disease (CKD) Breast cancer Anesthesia complication Bleeding disorder Cancer Uterine cancer Thyroid disease Social History Smoking and tobacco status: former smoker (20+ years) Alcohol intake: never Substance/Drug Use: never Caregiver/support person: Yes Lives independently: Yes Household members: spouse Housing: House Marital status: Number of children: 2 Current occupational status: disabled Current gender identity: Female Special sary needs: No Agree to transfusion: Yes Vitals/I&O/Wt Last Vital Signs Temp 97.9 F 07/18/22 11:35 Pulse 85 07/18/22 11:35 Resp 30 H 07/18/22 12:51 Pulse Ox 97 07/18/22 12:51 O2 Del Method Room Air 07/18/22 11:35 Weight last 48 hrs Weight 99.79 kg Physical Exam Narrative: General: Patient is awake. Appears fatigued. Head: Normocephalic. Atraumatic. EOM intact. Neck: No JVD. Cardiovascular: RRR. No gallops. No murmurs. Trace pedal edema. Lungs: Clear to auscultation, no use of accessory muscles, no crackles or wheezes. Skin: No jaundice. No rashes. Abdomen: Normal bowel sounds, abdomen soft and nontender. Genito Urinary: Genital exam not performed since complaints not related. Rectal: Rectal exam not performed since no symptoms indicated blood loss. Extremities: No cyanosis or clubbing. Musculoskeletal: 5/5 strength, normal range of motion, no swollen or erythematous joints. Neurological: Moves all 4 extremities. No myoclonus. Urinary Catheter Management: Rodas: Cath Placed During This Visit: yes Urinary Catheter Date of Insertion: 07/18/22 Urinary Catheter Time of Insertion: 14:30 Data 07/18/22 12:30 07/18/22 12:30 A&P Assessment and plan (1) Encephalopathy, hepatic: Continue Lactulose, adjust dose as needed Discontinue all over stool softeners/laxatives Mentation improving, approaching baseline Evaluate if rifaximin can be crushed or split with pharmacy (2) Cirrhosis: Decompensted w/ HE and EV GIB Established w/ GI in [facility] Continue Lasix Qualifiers: Hepatic cirrhosis type: unspecified hepatic cirrhosis Ascites presence: without ascites Qualified Code(s): K74.60 - Unspecified cirrhosis of liver (3) Esophageal varices: Continue PPI Currently scheduled w/ Cook for EGD in October Qualifiers: Esophageal varices type: secondary Esophageal varices bleeding: with bleeding Qualified Code(s): I85.11 - Secondary esophageal varices with bleeding (4) Chronic pain: S/P narcan in ED w/o effect Continue home morphine Discussed morphine is a poor option given her cirrhosis, predisposes her to encephalopathy Patient reports weaning down to possibly off morphine eventually Qualifiers: Chronic pain type: chronic pain syndrome Qualified Code(s): G89.4 - Chronic pain syndrome (5) Neuropathy: Continue home meds (6) Diabetes mellitus: T2DM, uncontrolled w/ hyperglycemia C/B metabolic acidosis, ketonuria, approaching DKA Start long acting insulin back Sliding scale insulin correction Consider IV insulin pending glycemic control Plan Code Status: Full Code Attestations Medical Necessity Statement*: Pt presents w/ AMS 2/2 HE w/ expected hospitalization not to cross 2 midnights. Coding Level of Care Code Acute Code for Chg Fwd Diagnoses Encephalopathy, hepatic K76.82 Cirrhosis K74.60 Hepatic cirrhosis type: unspecified hepatic cirrhosis Ascites presence: without ascites Esophageal varices I85.11 Esophageal varices type: secondary Esophageal varices bleeding: with bleeding Chronic pain G89.4 Chronic pain type: chronic pain syndrome Neuropathy G62.9 Diabetes mellitus E11.9
[2022-07-18 15:18] LABS: Urine Appearance Clear (CLEAR); Urine Color Straw (Yellow); pH Urine 6.5 (5-7)
[2022-07-18 15:19] LABS: Add Urine Culture? No; Add Urine Microscopic? YES; Bacteria Urine TRACE /hpf; Bilirubin Urine Neg (Negative); Blood Urine 2+ (Negative); Glucose Urine UA 4+ (Normal); Hyaline Casts Urine 0-4 /lpf; Ketones Urine 1+ (Negative); Leukocyte Esterase Urine Negative (Negative); Mucus Urine TRACE /hpf; Nitrate Urine Negative (Negative); Protein Urine 3+ (Negative); RBC Urine 0-4 /hpf (0-2); Squamous Epithelial Cell Urine 0-4 /hpf (0-5); Urobilinogen Urine Norm (Negative); WBC Urine 0-4 /hpf (0-5)
[2022-07-18 15:20] LABS: Amphetamines Screen Urine Negative (Negative); Barbiturates Screen Urine Negative (Negative); Benzodiazepines Screen Urine Negative (Negative); Cocaine Screen Urine Negative (Negative); Opiate Screen Urine Positive (Negative); PCP Screen Urine Negative (Negative); THC Screen Urine Negative (Negative)
--- NOTE | 2022-07-18 15:45 | PC.NURSE ---
PT AROUSES TO VERBAL AND PHYSICAL STIMULI. PT AWARE OF SELF AND BIRTHDAY. PT DISORIENTED TO PLACE AND YEAR
[2022-07-18 16:05] LABS: ABG PCO2 28.7 mmHg (35-45); ABG PH Result 7.46 (7.35-7.45); Arterial Blood Gas Hematocrit 39.1 % (37-47); Base Excess ABG -2.4 mmol/L (-2.0-2.0); Blood Gas Allen Test Pos; Blood Gas Operator Identificat WALCI; Blood Gas Sample Site Radial, left; Blood Gas Sample Type Arterial; HCO3 ABG 20.3 mmol/L (22-26); Oxygen Device ROOM AIR; PO2 ABG 68.9 mmHg (80.0-100.0)
[2022-07-18 18:08] LABS: Procalcitonin 0.19 ng/mL (0-0.5)
[2022-07-18 18:13] LABS: Glucose Point of Care 331 mg/dL (70-110)
[2022-07-18] MEDS: lactulose oral liq 20 gm/30 mL UDC 30 GM PO (20:55)
[2022-07-18] MEDS: morphine ER (12 HR) 30 mg tablet 60 MG PO (20:57)
[2022-07-18] MEDS: insulin lispro 100 unit/1 mL SUBCUT (20:57)
[2022-07-19] VITALS: BP 144/72; PULSE 62; RESP 16; TEMP 36.9; O2SAT 95
--- NOTE | 2022-07-19 03:29 | PC.NURSE ---
The patient requested a one time dose of lactulose to compensate the time between her last dose and next dose. Dr. Qiu called and made aware. Telephone order given for a one time dose of Lactulose 30 gm PO.
[2022-07-19] MEDS: lactulose oral liq 20 gm/30 mL UDC 30 GM PO ×2 (03:36→10:05)
[2022-07-19 03:57] VITALS: BP 167/77; PULSE 62; RESP 16; TEMP 36.8; O2SAT 97
[2022-07-19 06:31] LABS: Ammonia 160 umol/L (11-51)
[2022-07-19 06:34] LABS: Alanine Aminotransferase 47 U/L (0-33); Albumin Level 3.3 g/dL (3.5-5.2); Alkaline Phosphatase 210 U/L (35-105); Blood Urea Nitrogen 23 mg/dL (6-20); Calcium 8.9 mg/dL (8.5-10.5); Carbon Dioxide 16 mmol/L (22-29); Chloride 97 mmol/L (98-107); Globulin 3.9 g/dL (1.3-4.6); Glucose 438 mg/dL (65-115); Magnesium 2.2 mg/dL (1.7-2.3); Osmolality Calculated 289 mOsm/kg (285-295); Phosphorus 2.7 mg/dL (2.5-4.5); Sodium 128 mmol/L (136-145); Total Bilirubin 2.2 mg/dL (0.15-1.2); Total Protein 7.2 g/dL (6.6-8.7)
[2022-07-19 06:44] LABS: Anion Gap 19.4 (5-19); Aspartate Amino Transferase 97 U/L (0-32); Potassium 4.4 mmol/L (3.5-5.1)
[2022-07-19 08:00] VITALS: BP 128/72; PULSE 60; RESP 17; TEMP 36.9; O2SAT 97
[2022-07-19 08:04] LABS: Glucose Point of Care 509 mg/dL (70-110)
[2022-07-19] MEDS: insulin lispro 100 unit/1 mL SUBCUT (08:07)
[2022-07-19 08:16] LABS: Basophils # 0.1 10^3/uL (0.0-0.1); Basophils % 0.5 %; Eosinophils # 0.1 10^3/uL (0.0-0.8); Eosinophils % 1.2 %; Hematocrit 37.8 % (37.0-47.0); Hemoglobin 12.1 g/dL (11.5-15.3); Lymphocytes # 1.3 10^3/uL (0.8-4.8); Lymphocytes % 14.1 %; Mean Corpuscular Hemoglobin 27.9 pg (28.0-34.0); Mean Corpuscular Volume 87.3 fl (81-99); Mean Platelet Volume 12.2 fL (7.4-10.4); Monocytes % 11.2 %; Neutrophils # 6.78 10^3/uL (1.8-7.7); Neutrophils % 72.8 %; Nucleated Red Blood Cells % 0 %; Platelet Count 138 10^3/cmm (130-400); Red Blood Count 4.33 10^6/uL (4.1-5.3); Red Cell Distribution Width 14.9 % (12.1-15.1); White Blood Count 9.3 10^3/uL (4.0-10.0)
[2022-07-19 10:03] VITALS: RESP 16
[2022-07-19] MEDS: morphine ER (12 HR) 30 mg tablet PO (10:03)
[2022-07-19] MEDS: FUROsemide 40 mg Tablet 80 MG PO (10:03)
[2022-07-19] MEDS: pantoprazole DR 40 mg Tablet PO (10:03)
[2022-07-19] MEDS: insulin glargine 100 units/1 mL 38 UNIT SUBCUT (10:04)
[2022-07-19 13:01] VITALS: RESP 16
--- NOTE | 2022-09-16 12:42 | PM.DCS ---
Discharge Providers Date of Admission: 07/18/22 15:32 Date of Discharge: 07/19/2022 Attending Provider at Admission: Lavell Rinaldi MD Attending Provider at Discharge: Lavell Rinaldi MD Consults: None Primary Care Provider: Jovan Singer MD Diagnoses at Discharge Discharge Diagnosis (1) Encephalopathy, hepatic: Status: Inactive (2) Cirrhosis: Status: Acute Qualifiers: Ascites presence: without ascites Hepatic cirrhosis type: unspecified hepatic cirrhosis Qualified Code(s): K74.60 - Unspecified cirrhosis of liver (3) Esophageal varices: Status: Chronic Qualifiers: Esophageal varices bleeding: with bleeding Esophageal varices type: secondary Qualified Code(s): I85.11 - Secondary esophageal varices with bleeding (4) Chronic pain: Status: Chronic Qualifiers: Chronic pain type: chronic pain syndrome Qualified Code(s): G89.4 - Chronic pain syndrome (5) Neuropathy: Status: Acute (6) Diabetes mellitus: Status: Acute Reason for Visit Reason for Visit: [facility] Hospital Course Hospital Course Jacquelin Whiteside is a 57 year old female with a past medical history significant for decompensated liver cirrhosis with hx of hepatic encephalopathy and variceal bleed who presents to the emergency department with altered mental status x1 day, found to have acute hepatic encephalopathy. She was medically optimized. Symptoms improved. She was discharged to home in stable condition. Medication changes as per discharge med rec. Physical Exam Const: COMMON NORMALS: no acute distress and alert Eye: COMMON NORMALS: EOMs intact bilaterally Neck/C-Spine: COMMON NORMALS: no JVD Chest: COMMONS NORMALS: normal inspection of the chest Resp: COMMON NORMALS: normal respiratory effort and No use of accessory muscles Cardio: COMMON NORMALS: no JVD GI: COMMON NORMALS: Normal to inspection, nondistended, normoactive bowel sounds present and non-tender Neuro: SENSORIUM/ORIENTATION: Yes alert Urinary Catheter Management: Rodas: Cath Placed During This Visit: yes Reason for Continuing Indwelling Catheter: Other Urinary Catheter Date of Insertion: 07/18/22 Urinary Catheter Time of Insertion: 14:30 Discharge Data Studies Completed and Pending Completed Studies During Hospitalization Category Date Time Status CT head wo con* [id number] Stat Cat Scan 07/18/22 13:21 Completed XR chest 1V portable [id number] Stat Exams 07/18/22 11:40 Completed Radiology Impressions Chest X-Ray 07/18/22 11:40 Impression: Cardiomegaly. Head CT 07/18/22 13:21 IMPRESSION: 1. No evidence of intracranial hemorrhage or mass effect. 2. Mild small vessel changes. Mild parenchymal volume loss. 3. No acute intracranial findings. Laboratory Results WBC 9.3 10^3/uL (4.0-10.0) 07/19/22 07:42 Corrected WBC Cancelled 07/19/22 05:53 RBC 4.33 10^6/uL (4.1-5.3) 07/19/22 07:42 Hgb 12.1 g/dL (11.5-15.3) 07/19/22 07:42 Hct 37.8 % (37.0-47.0) 07/19/22 07:42 MCV 87.3 fl (81-99) 07/19/22 07:42 MCH 27.9 pg (28.0-34.0) L 07/19/22 07:42 MCHC 32.0 g/dL (30.0-36.0) 07/19/22 07:42 RDW 14.9 % (12.1-15.1) 07/19/22 07:42 Plt Count 138 10^3/cmm (130-400) 07/19/22 07:42 MPV 12.2 fL (7.4-10.4) H 07/19/22 07:42 Gran % Cancelled 07/19/22 05:53 Neut % (Auto) 72.8 % 07/19/22 07:42 Lymph % (Auto) 14.1 % 07/19/22 07:42 Page % (Auto) 11.2 % 07/19/22 07:42 Eos % (Auto) 1.2 % 07/19/22 07:42 Baso % (Auto) 0.5 % 07/19/22 07:42 Neut # (Auto) 6.78 10^3/uL (1.8-7.7) 07/19/22 07:42 Lymph # (Auto) 1.3 10^3/uL (0.8-4.8) 07/19/22 07:42 Page # (Auto) 1.0 10^3/uL (0.2-0.9) H 07/19/22 07:42 Eos # (Auto) 0.1 10^3/uL (0.0-0.8) 07/19/22 07:42 Baso # (Auto) 0.1 10^3/uL (0.0-0.1) 07/19/22 07:42 Absolute Gran (auto) Cancelled 07/19/22 05:53 Nucleated RBC % (auto) 0 % 07/19/22 07:42 Nucleated RBCs # 0.0 /100WBC 07/19/22 07:42 Specimen Type Arterial 07/18/22 15:54 Sample Site Radial, left 07/18/22 15:54 ABG pH 7.46 (7.35-7.45) H 07/18/22 15:54 ABG pCO2 28.7 mmHg (35-45) L 07/18/22 15:54 ABG pO2 68.9 mmHg (80.0-100.0) L 07/18/22 15:54 ABG HCO3 20.3 mmol/L (22-26) L 07/18/22 15:54 ABG Base Excess -2.4 mmol/L (-2.0-2.0) L 07/18/22 15:54 Mike Test Pos 07/18/22 15:54 Hematocrit 39.1 % (37-47) 07/18/22 15:54 O2 Delivery Device Room air 07/18/22 15:54 FiO2 21.0 % 07/18/22 15:54 County Extension Agent ID [place] 07/18/22 15:54 Sodium 128 mmol/L (136-145) L 07/19/22 05:53 Potassium 4.4 mmol/L (3.5-5.1) 07/19/22 05:53 Chloride 97 mmol/L (98-107) L 07/19/22 05:53 Carbon Dioxide 16 mmol/L (22-29) L 07/19/22 05:53 Anion Gap 19.4 (5-19) H 07/19/22 05:53 BUN 23 mg/dL (6-20) H 07/19/22 05:53 Creatinine 1.2 mg/dL (0.5-0.9) H 07/19/22 05:53 GFR Calculation 46.0 mL/min (90-130) L 07/19/22 05:53 Glucose 438 mg/dL (65-115) H 07/19/22 05:53 POC Glucose 509 mg/dL (70-110) H* 07/19/22 08:02 Calculated Osmolality 289 mOsm/kg (285-295) 07/19/22 05:53 Calcium 8.9 mg/dL (8.5-10.5) 07/19/22 05:53 Phosphorus 2.7 mg/dL (2.5-4.5) 07/19/22 05:53 Magnesium 2.2 mg/dL (1.7-2.3) 07/19/22 05:53 Total Bilirubin 2.2 mg/dL (0.15-1.2) H 07/19/22 05:53 AST 97 U/L (0-32) H 07/19/22 05:53 ALT 47 U/L (0-33) H 07/19/22 05:53 Alkaline Phosphatase 210 U/L (35-105) H 07/19/22 05:53 Ammonia 160 umol/L (11-51) H 07/19/22 06:00 NT-Pro-B Natriuret Pep 133 pg/mL (0-125) H 07/18/22 12:30 Total Protein 7.2 g/dL (6.6-8.7) 07/19/22 05:53 Albumin 3.3 g/dL (3.5-5.2) L 07/19/22 05:53 Globulin 3.9 g/dL (1.3-4.6) 07/19/22 05:53 Procalcitonin 0.19 ng/mL (0-0.5) 07/18/22 12:30 Urine Color Straw (Yellow) 07/18/22 14:29 Urine Appearance Clear (CLEAR) 07/18/22 14:29 Urine pH 6.5 (5-7) 07/18/22 14:29 Ur Specific [place] 1.010 (1.005-1.030) 07/18/22 14:29 Urine Protein 3+ (Negative) H 07/18/22 14:29 Urine Glucose (UA) 4+ (Normal) H 07/18/22 14:29 Urine Ketones 1+ (Negative) H 07/18/22 14:29 Urine Blood 2+ (Negative) H 07/18/22 14:29 Urine Nitrate Negative (Negative) 07/18/22 14:29 Urine Bilirubin Neg (Negative) 07/18/22 14:29 Urine Urobilinogen Norm mg/dL (Negative) 07/18/22 14:29 Ur Leukocyte Esterase Negative (Negative) 07/18/22 14:29 Urine RBC 0-4 /hpf (0-2) H 07/18/22 14:29 Urine WBC 0-4 /hpf (0-5) H 07/18/22 14:29 Ur Squamous Epith Cells 0-4 /hpf (0-5) H 07/18/22 14:29 Amorphous Sediment Not Reportable 07/18/22 14:29 Urine Bacteria Trace /hpf (NONE) 07/18/22 14:29 Hyaline Casts 0-4 /lpf H 07/18/22 14:29 Urine Mucus Trace /hpf 07/18/22 14:29 Urine Opiates Screen Positive ng/mL (Negative) H 07/18/22 14:29 Ur Barbiturates Screen Negative ng/mL (Negative) 07/18/22 14:29 Ur Phencyclidine Scrn Negative ng/mL (Negative) 07/18/22 14:29 Ur Amphetamines Screen Negative ng/mL (Negative) 07/18/22 14:29 U Benzodiazepines Scrn Negative ng/mL (Negative) 07/18/22 14:29 Urine Cocaine Screen Negative ng/mL (Negative) 07/18/22 14:29 U Marijuana (THC) Screen Negative ng/mL (Negative) 07/18/22 14:29 Vitals Last Vital Signs Temp 98.4 F 07/19/22 08:00 Pulse 60 07/19/22 08:00 Resp 16 07/19/22 13:01 BP 128/72 07/19/22 08:00 Pulse Ox 97 07/19/22 08:00 O2 Del Method Room Air 07/19/22 03:57 Discharge Plan Discharge Patient Disposition: Home Condition: Stable Prescriptions: Continued ondansetron HCl 4 mg tablet 4 mg PO Q8H PRN (Reason: nausea and vomiting) Qty: 30 0RF furosemide 40 mg tablet 80 mg PO DAILY Qty: 60 1RF potassium chloride 20 mEq tablet extended release 40 meq PO DAILY Qty: 60 1RF (DME) lancing device with lancets Kit See Rx Instructions .ROUTE .MEDSUPPLY Qty: 1 0RF Rx Instructions: As directed (DME) lancets [BD Ultra Fine Lancets] 33 gauge misc See Rx Instructions .ROUTE .MEDSUPPLY Qty: 100 12RF Rx Instructions: test 4 times daily (DME) blood-glucose meter Kit See Rx Instructions .Route Qty: 1 11RF Rx Instructions: mauricio 14 with sensors and patches (DME) Blood Glucose Test Strip See Rx Instructions .ROUTE .MEDSUPPLY Qty: 100 6RF Rx Instructions: TEST UP TO 4 TIMES A DAY pantoprazole 40 mg tablet,delayed release (DR/EC) 40 mg PO BID nitroglycerin [Nitrostat] 0.4 mg Tablet, Sublingual 0.4 mg SUBLINGUAL Q5M PRN (Reason: Chest Pain) Rx Instructions: do not exceed 3 doses per episode irbesartan 75 mg tablet 75 mg PO QAM Discontinued lactulose 20 gram/30 mL solution 30 g PO TID 30 Days Qty: 4050 8RF No Action tizanidine 4 mg tablet 4 mg PO BID PRN (Reason: muscle spasticity) Qty: 30 0RF (DME) pen needle, diabetic [BD Ultra-Fine Short Pen Needle] 31 gauge x 5/16 needle See Rx Instructions .ROUTE .MEDSUPPLY Qty: 150 3RF Rx Instructions: test 5 times daily insulin lispro 100 unit/mL insulin pen See Rx Instructions .ROUTE .COMPLEX Qty: 45 0RF Dose Instruction: INJECT USING SLIDING SCALE THREE TIMES DAILY, MAX OF 51 UNITS PER DOSE MAX OF 153 UNITS PER DAY Rx Instructions: INJECT USING SLIDING SCALE THREE TIMES DAILY, MAX OF 51 UNITS (DME) FreeStyle Mauricio 14 Day [place] Misc See Rx Instructions .Route Qty: 1 2RF Rx Instructions: As directed (DME) FreeStyle Mauricio 14 Day Sensor Kit See Rx Instructions .Route Qty: 1 2RF Rx Instructions: As directed Generlac 10 gram/15 mL solution 30 g PO BID Qty: 946 3RF Rx Instructions: May titrate dose to 3-4 soft bowel movements/day insulin glargine [Lantus Solostar U-100 Insulin] 100 unit/mL (3 mL) insulin pen 45 unit SUBCUT BID Qty: 15 3RF morphine 30 mg tablet extended release See Rx Instructions PO .COMPLEX 30 Days Qty: 90 0RF Rx Instructions: 30mg (1 tab) po every AM and 60mg (2 tabs) po every PM Discharge Orders: Discharge Order (Routine); Ordered 07/19/22 Ordered By: Lavell Rinaldi Referrals: Jovan Singer MD [Primary Care Provider] - 4-7 days ([facility] will call with your follow up appointment.) Discharge Diet: Advance as tolerated, As Directed, Diabetic, Low Salt and Low Cholesterol Discharge Activity: Resume usual activity and Increase activity as tolerated Patient Instructions: Lactulose (By mouth) (Konstuloz, Enuloz, Generlac, Kristaloz, Laktuloz), Hyponatremia (ED), Benzodiazepine Use Disorder (ED), Dementia (ED), Non-diabetic Hypoglycemia (ED), Hypoglycemia in a Person with Diabetes (ED), Concussion (ED), Alcohol Intoxication (ED), Subarachnoid Hemorrhage (GEN), Altered Mental Status (ED), Opioid Safety Plan of Treatment: 1. Take medications as prescribed. Trial of low dose Xifampin 2. Encourage patient to discuss further morphine weaning w/ PCP. 3. Follow up with GI. 4. Follow up with Dr Cook. Discharge Attestations Time Spent in Discharge Care*: greater than 30 min Status at Discharge: Cognitive status at discharge: cognitively intact, Behavioral status at discharge: cooperative, Quality Metrics Clinical Quality Measures [ No reported AMI, CVA or VTE this stay] Coding Level of Care Code Acute Code for Chg Fwd Diagnoses Encephalopathy, hepatic K76.82 Cirrhosis K74.60 Ascites presence: without ascites Hepatic cirrhosis type: unspecified hepatic cirrhosis Esophageal varices I85.11 Esophageal varices bleeding: with bleeding Esophageal varices type: secondary Chronic pain G89.4 Chronic pain type: chronic pain syndrome Neuropathy G62.9 Diabetes mellitus E11.9
== END 2022-07-19 13:02 | disposition home or self-care (01) ==
LOC: ER 15:13 → MEDSURG 15:32
PROVIDERS: Admitting Provider Internal Medicine; Emergency Provider Emergency Medicine; PCP Family Medicine; Visit Provider Internal Medicine
DX: K76.82 Hepatic encephalopathy (principal); Z79.891 Long term (current) use of opiate analgesic; I50.33 Acute on chronic diastolic (congestive) heart failure; I25.10 Atherosclerotic heart disease of native coronary artery without angina pectoris; E78.5 Hyperlipidemia, unspecified; Z95.0 Presence of cardiac pacemaker; N18.30 Chronic kidney disease, stage 3 unspecified; Z87.891 Personal history of nicotine dependence; I13.0 Hypertensive heart and chronic kidney disease with heart failure and stage 1 through stage 4 chronic kidney disease, or unspecified chronic kidney disease; R41.2 Retrograde amnesia; R94.39 Abnormal result of other cardiovascular function study; E11.42 Type 2 diabetes mellitus with diabetic polyneuropathy; Z79.4 Long term (current) use of insulin; K74.60 Unspecified cirrhosis of liver; I85.11 Secondary esophageal varices with bleeding; G89.29 Other chronic pain; E11.65 Type 2 diabetes mellitus with hyperglycemia
CPT/HCPCS: 36415; 36416; 36600; 51702; 70450; 71045; 80053; 80306; 81001; 82140; 82803; 82962; 83735; 83880; 84100; 84145; 85025; 93005; 96361; 96372; 96374; 96375; 99285; G0378; J1815; J2060; J2270; J2310

== ENCOUNTER → 2022-08-07 15:27 | Outpatient (BNVA) | payer MEDICARE, MEDICAID, SELFPAY | PROVIDERS: PCP Family Medicine; Visit Provider Surgery | DX: I85.11 Secondary esophageal varices with bleeding (principal) | CPT/HCPCS: 99203 ==

== ENCOUNTER 2022-11-12 11:44 | Day surgery (SDC) | payer MEDICARE, MEDICAID, SELFPAY ==
[2022-11-11 13:06] VITALS: BMI 37.8
--- NOTE | 2022-11-12 11:53 | US_ITS ---
WS: [id number] Abdominal ultrasound, limited. History: Evaluate for ascites. Comparison: None. All 4 quadrants are imaged by ultrasound to evaluate for ascites. There is a very small amount of asc ites adjacent to the liver beneath the diaphragm. Insufficient amount of ascites for paracentesis. Cherry rface of the liver is markedly nodular suggestive of cirrhosis. IMPRESSION: Insufficient ascites for paracentesis.
[2022-11-12 12:02] VITALS: BP 176/71; PULSE 97; RESP 20; TEMP 36.9; O2SAT 94; BMI 37.8
== END 2022-11-12 12:30 | disposition home or self-care (01) ==
LOC: GILAB 11:45
PROVIDERS: Radiology Diagnostic Radiology; PCP Family Medicine; Visit Provider Family Medicine
PROC: (CPT 49082; principal; 2022-11-12 13:00)
DX: R18.8 Other ascites (principal)
CPT/HCPCS: 76705

== ENCOUNTER → 2022-12-01 15:45 | Outpatient (BNVA) | payer MEDICARE, MEDICAID, SELFPAY | PROVIDERS: PCP Family Medicine; Visit Provider Family Medicine | DX: E11.9 Type 2 diabetes mellitus without complications (principal); R60.0 Localized edema; I50.20 Unspecified systolic (congestive) heart failure; I50.32 Chronic diastolic (congestive) heart failure; K74.60 Unspecified cirrhosis of liver; I21.A1 Myocardial infarction type 2; I85.11 Secondary esophageal varices with bleeding; I25.10 Atherosclerotic heart disease of native coronary artery without angina pectoris; I10 Essential (primary) hypertension | CPT/HCPCS: 80053; 82728; 83036; 83550; 83880; 85025 ==

== ENCOUNTER 2022-12-22 13:30 | Oncology outpatient (recurring) (ONCR) | payer MEDICARE, MEDICAID, SELFPAY ==
[2022-12-12 11:00] VITALS: BP 176/76; PULSE 88; RESP 16; TEMP 37.3; O2SAT 94
[2022-12-12] MEDS: sodium chloride 0.9% 250 ML 75 ML IV (11:02)
[2022-12-12] MEDS: iron sucrose 200 MG in sodium chloride 0.9% (100 ml) 100 ML 220 MG IV (11:02)
[2022-12-12 11:44] VITALS: BP 150/76; PULSE 60; RESP 16; TEMP 37.1; O2SAT 95
[2022-12-15 13:33] VITALS: BP 159/73; PULSE 96; RESP 18; TEMP 37.2; O2SAT 96
[2022-12-15] MEDS: sodium chloride 0.9% 250 ML 100 ML IV (13:40)
[2022-12-15] MEDS: iron sucrose 200 MG in sodium chloride 0.9% (100 ml) 100 ML 220 MG IV (14:15)
[2022-12-15 14:45] VITALS: BP 172/67; PULSE 62; RESP 18; TEMP 37.3; O2SAT 96
== END 2022-12-23 23:59 | disposition home or self-care (01) ==
PROVIDERS: PCP Family Medicine; Visit Provider Family Medicine
DX: Z53.9 Procedure and treatment not carried out, unspecified reason (principal)
CPT/HCPCS: 96365; J1756; J7050

== ENCOUNTER → 2022-12-31 16:06 | Outpatient (BNVA) | payer MEDICARE, MEDICAID, SELFPAY | PROVIDERS: PCP Family Medicine; Visit Provider Family Medicine | DX: R60.0 Localized edema (principal); E11.9 Type 2 diabetes mellitus without complications | CPT/HCPCS: 80053; 83540 ==

== ENCOUNTER 2023-01-04 04:15 | Observation (INO) | payer MEDICARE, MEDICAID, SELFPAY ==
[2023-01-04] VITALS (12 sets, daily range): BP systolic 156–204; BP diastolic 70–88; PULSE 60–69; RESP 16–20; TEMP 36.4–37.3; O2SAT 95–99
--- NOTE | 2023-01-04 04:26 | CTR_ITS ---
PROCEDURE INFORMATION: Exam: CT Head Without Contrast Exam date and time: 01/04/2023 4:41 AM Age: 57 years old Clinical indication: Altered mental status/memory loss; Confusion or disorientation; Prior surgery; Surgery date: 6+ months; Surgery type: Resection of pituitary tumor; Patient HX: EMS arrival for AMS. Patient severely lethargic and non verbal. Hypertensive on monitor. TECHNIQUE: Imaging protocol: Computed tomography of the head without contrast. Radiation optimization: All CT scans at this facility use at least one of these dose optimization techniques: automated exposure control; mA and/or kV adjustment per patient size (includes targeted exams where dose is matched to clinical indication); or iterative reconstruction. REPORTING DATA: Count of CT and Cardiac NM exams in prior 12 months: This patient has received 6 known CTs and 0 known cardiac nuclear medicine studies in the 12 months prior to the current study. COMPARISON: CT head wo con* [id number] 07/18/2022 2:33 PM RADIATION DOSE METRICS: Total DLP (mGy-cm): 1929.98 FINDINGS: Brain: There is no evidence of acute parenchymal hemorrhage, extra-axial collection, or acute infarction. There is no mass effect, midline shift, or downward herniation. Cerebral ventricles: No ventriculomegaly. Paranasal sinuses: Visualized sinuses are unremarkable. No fluid levels. Mastoid air cells: Visualized mastoid air cells are well aerated. Bones/joints: Unremarkable. No acute fracture. Soft tissues: Unremarkable. CT/CT head wo con* [id number] IMPRESSION: No acute intracranial abnormality.
--- NOTE | 2023-01-04 04:26 | XRR_ITS ---
PROCEDURE INFORMATION: Exam: XR Chest Exam date and time: 01/04/2023 4:30 AM Age: 57 years old Clinical indication: Prior surgery; Surgery date: 6+ months; Surgery type: Cabg. Pacer. Coronary stents; Patient HX: EMS arrival for AMS. Patient severely lethargic and non verbal. Hypertensive on monitor. TECHNIQUE: Imaging protocol: Radiologic exam of the chest. Views: 1 view. COMPARISON: CR XR chest 1V portable [id number] 07/18/2022 12:03 PM FINDINGS: Lungs: Unremarkable. No consolidation. Pleural spaces: Unremarkable. No pleural effusion. No pneumothorax. Heart/Mediastinum: Unremarkable. No cardiomegaly. Bones/joints: The patient is status post median sternotomy. A dual lead left chest wall pacemaker is again seen. XR/XR chest 1V portable [id number] IMPRESSION: No evidence of acute pulmonary process.
--- NOTE | 2023-01-04 04:40 | ED_ITS ---
HPI - Altered Mental Status General: Chief Complaint: Altered Mental Status Stated Complaint: AMS Time Seen by Provider: 01/04/23 04:21 History of Present Illness: 57-year-old female with a history of liver cirrhosis. She presents with altered mental status that started around 4 PM yesterday. Family noticed mild mental status changes yesterday, they seem to progress over the course of the evening and into this morning despite 3 different doses of lactulose, totaling 90 g. She has not had a bowel movement. She is also diabetic, and EMS checked her blood sugar which was in the 200s. She follows some commands. According to EMS, she walked to the ambulance, down a flight of stairs without assistance. She is somewhat responsive on our examination. Review of Systems General: Reports: ROS unobtainable due to mental status Const: Denies: fever(s) GI: Denies: vomiting PFSH ED PFSH: Medical History (HFpEF) heart failure with preserved ejection fraction Acute hepatic encephalopathy Atherosclerosis of coronary artery of [place] heart without angina pectoris Atrial fibrillation Patient had atrial fibrillation postoperatively. Apparently the subsequent Holter monitor and event monitor did not reveal any recurrence of atrial fibrillation. CAD (coronary artery disease) Carpal tunnel syndrome Cirrhosis Diabetes mellitus Diabetic neuropathy Encephalopathy Encephalopathy, hepatic Essential hypertension Fe deficiency anemia Hepatomegaly History of SD (myocardial infarction) (~2006) Hyperammonemia Hyperlipidemia Migraine Neuropathy Pacemaker (~2012) Splenomegaly Sporadic pituitary adenoma Stage 3b chronic kidney disease (CKD) Thrombocytopenia Surgical History History of esophageal surgery History of esophagogastroduodenoscopy (EGD) 4-5 years History of permanent cardiac pacemaker placement Hx of colonoscopy 10 plus years S/P arterial stent x 3; approximately in 2012, 2013 - [facility] S/P brain surgery (~2005) Removal of brain tumor- benign; in the pituitary gland S/P CABG x 2 in 2006 S/P section performed in 1990, 1992 S/P hysterectomy (~1992) converted from C/Section to NAMAN,bilateral salpingectomy, probable ovaries remain. Most likely performed by Dr. Roper. Vulvar abscess (~05/01/15) I&D of left labia majora abscess; performed by Kiko. Family History Brother Stroke Diabetes Mother , 72 Diabetes Heart disease Hypertension Stroke Father , 68 Diabetes Heart disease Hypertension Stroke Grandmother Diabetes Maternal Other CAD (coronary artery disease) Hyperlipidemia Lung disease Denies family history of Colon cancer Ovarian cancer Clotting disorder Dementia Hypercholesteremia Psychiatric illness Chronic kidney disease (CKD) Breast cancer Anesthesia complication Bleeding disorder Cancer Uterine cancer Thyroid disease Social History Smoking and tobacco/nicotine status: former use of tobacco/nicotine (20+ years) Alcohol intake: never Substance/Drug Use: never Caregiver/support person: Yes Lives independently: Yes Household members: spouse Housing: House Marital status: Number of children: 2 Current occupational status: disabled Current gender identity: Female Special sary needs: No Agree to transfusion: Yes Physical Exam 2 Const: GENERAL APPEARANCE: lethargic and ill appearing ORIENTATION/CONSCIOUSNESS: Yes lethargic HENMT: COMMON NORMALS: normocephalic and atraumatic HEAD & SCALP: normocephalic and atraumatic FACE & SINUS: normal facial exam and face symmetric Eye: COMMON NORMALS: Equal, round and reactive pupils present and EOMs intact bilaterally PUPIL: Yes Equal, round and reactive pupils present Neck/C-Spine: GENERAL: Yes trachea midline Chest: CHEST: Yes Symmetrical chest wall rise Resp: COMMON NORMALS: normal respiratory effort and clear to auscultation bilaterally AUSCULTATION: clear to auscultation bilaterally Cardio: COMMON NORMALS: regular rate and regular rhythm RATE: regular rate RHYTHM: regular rhythm GI: COMMON NORMALS: Normal to inspection, nondistended, normoactive bowel sounds present and Soft to palpation PALPATION: Yes Soft to palpation and No Tenderness to palpation present (GI) Extremity: GENERAL: Yes edema (1+) Neuro: KENDAL COMA SCALE: document GCS findings Kendal coma scale eye opening: To sound [place] coma scale verbal response: Words [place] coma scale motor response: Localising [place] coma scale total score: 11 SENSORIUM/ORIENTATION: Yes lethargic Course Vital Signs: Vital signs: Vital Signs Temperature 97.9 F 01/04/23 16:00 Pulse Rate 67 01/04/23 16:00 Respiratory Rate 18 01/04/23 16:00 Blood Pressure 196/79 01/04/23 16:00 Pulse Oximetry 99 01/04/23 16:00 Oxygen Delivery Me thod Room Air 01/04/23 12:00 MDM - Altered Mental Status Medical Decision Making 57-year-old female with altered mental status. She is lethargic, but maintaining her own airway. Platelet count is 122, total bilirubin is 1.8 which is near her baseline. However, her ammonia level is 244, likely the cause of her mild obtundation. She has already achieved 90 g of MiraLAX administered by family. She has yet to have a bowel movement. She is given IV fluids, supportive therapy. She will be admitted for hepatic encephalopathy. Celia maurer will see the patient. Lab Data 01/04/23 04:25 01/04/23 04:25 Radiology Impressions Chest X-Ray 01/04/23 04:26 IMPRESSION: No evidence of acute pulmonary process. Head CT 01/04/23 04:26 IMPRESSION: No acute intracranial abnormality. Abdomen/Pelvis CT 01/04/23 06:40 IMPRESSION: 1. Cirrhotic liver with sequela of portal hypertension including splenomegaly, recanalized umbilical vein, and small upper abdominal varices. No drainable ascites or bowel obstruction. 2. Circumferential wall thickening of the bladder. Correlate with urinalysis to assess for cystitis. Laboratory Results WBC 6.32 10^3/uL (3.29-11.43) 01/04/23 04:25 RBC 4.45 10^6/uL (3.85-5.65) 01/04/23 04:25 Hgb 11.70 g/dL (11.27-16.99) 01/04/23 04:25 Hct 37.1 % (36-47) 01/04/23 04:25 MCV 83.4 fl (85-98) L 01/04/23 04:25 MCH 26.3 pg (27-33) L 01/04/23 04:25 MCHC 31.5 g/dL (30-55) 01/04/23 04:25 RDW 19.1 % (12.1-15.1) H 01/04/23 04:25 Plt Count 122 10^3/cmm (157-399) L 01/04/23 04:25 MPV 11.0 fL (7.4-10.4) H 01/04/23 04:25 Neut % (Auto) 79.9 % 01/04/23 04:25 Lymph % (Auto) 9.7 % 01/04/23 04:25 [place] % (Auto) 8.4 % 01/04/23 04:25 Eos % (Auto) 0.9 % 01/04/23 04:25 Baso % (Auto) 0.6 % 01/04/23 04:25 Neut # (Auto) 5.05 10^3/uL (1.8-7.7) 01/04/23 04:25 Lymph # (Auto) 0.6 10^3/uL (0.8-4.8) L 01/04/23 04:25 [place] # (Auto) 0.5 10^3/uL (0.2-0.9) 01/04/23 04:25 Eos # (Auto) 0.1 10^3/uL (0.0-0.8) 01/04/23 04:25 Baso # (Auto) 0.0 10^3/uL (0.0-0.1) 01/04/23 04:25 Nucleated RBC % (auto) 0 % 01/04/23 04:25 Nucleated RBCs # 0.0 /100WBC 01/04/23 04:25 Specimen Type Arterial 01/04/23 04:46 Sample Site Brachial, right 01/04/23 04:46 ABG pH 7.42 (7.35-7.45) 01/04/23 04:46 ABG pCO2 40.3 mmHg (35-45) 01/04/23 04:46 ABG pO2 78.3 mmHg (80.0-100.0) L 01/04/23 04:46 ABG HCO3 26.1 mmol/L (22-26) H 01/04/23 04:46 ABG Base Excess 1.5 mmol/L (-2.0-2.0) 01/04/23 04:46 Mike Test N/a 01/04/23 04:46 Hematocrit 34.4 % (37-47) L 01/04/23 04:46 O2 Delivery Device Room air 01/04/23 04:46 Manager Bilingual ID [email or web address] 01/04/23 04:46 Sodium 137 mmol/L (136-145) 01/04/23 04:25 Potassium 4.0 mmol/L (3.5-5.1) 01/04/23 04:25 Chloride 97 mmol/L (98-107) L 01/04/23 04:25 Carbon Dioxide 26 mmol/L (22-29) 01/04/23 04:25 Anion Gap 18.0 (5-19) 01/04/23 04:25 BUN 27 mg/dL (6-20) H 01/04/23 04:25 Creatinine 1.4 mg/dL (0.5-0.9) H 01/04/23 04:25 GFR Calculation 38.5 mL/min (90-130) L 01/04/23 04:25 Glucose 295 mg/dL (65-115) H 01/04/23 04:25 Calculated Osmolality 300 mOsm/kg (285-295) H 01/04/23 04:25 Lactic Acid 2.8 mmol/L (0.5-2.2) H 01/04/23 04:25 Calcium 9.7 mg/dL (8.5-10.5) 01/04/23 04:25 Total Bilirubin 1.8 mg/dL (0.15-1.2) H 01/04/23 04:25 AST 64 U/L (0-32) H 01/04/23 04:25 ALT 41 U/L (0-33) H 01/04/23 04:25 Alkaline Phosphatase 239 U/L (35-105) H 01/04/23 04:25 Ammonia 244 umol/L (11-51) H 01/04/23 04:25 C-Reactive Protein 5.8 mg/L (0.0-4.9) H 01/04/23 04:25 Total Protein 9.0 g/dL (6.6-8.7) H 01/04/23 04:25 Albumin 4.2 g/dL (3.5-5.2) 01/04/23 04:25 Globulin 4.8 g/dL (1.3-4.6) H 01/04/23 04:25 TSH 1.06 uIU/mL (0.27-4.20) 01/04/23 04:45 Urine Color Yellow (Yellow) 01/04/23 05:00 Urine Appearance Turbid (CLEAR) A 01/04/23 05:00 Urine pH 6.5 (5-7) 01/04/23 05:00 Ur Specific [place] 1.010 (1.005-1.030) 01/04/23 05:00 Urine Protein 3+ (Negative) H 01/04/23 05:00 Urine Glucose (UA) 4+ (Normal) H 01/04/23 05:00 Urine Ketones Negative (Negative) 01/04/23 05:00 Urine Blood 3+ (Negative) H 01/04/23 05:00 Urine Nitrate Negative (Negative) 01/04/23 05:00 Urine Bilirubin Neg (Negative) 01/04/23 05:00 Urine Urobilinogen Neg mg/dL (Negative) 01/04/23 05:00 Ur Leukocyte Esterase Negative (Negative) 01/04/23 05:00 Urine RBC 10-15 /hpf (0-2) H 01/04/23 05:00 Urine WBC 0-4 /hpf (0-5) H 01/04/23 05:00 Ur Squamous Epith Cells 10-15 /hpf (0-5) H 01/04/23 05:00 Amorphous Sediment Not Reportable 01/04/23 05:00 Urine Bacteria 1+ /hpf (NONE) H 01/04/23 05:00 Urine Mucus 1+ /hpf 01/04/23 05:00 Ethyl Alcohol < 10 mg/dL (0-10) 01/04/23 04:25 All radiology interpretation(s) finalized by discharge Discharge Plan Discharge Patient Disposition: Admitted As Inpatient Admit Provider: Samir Steele Clinical Impression: Acute encephalopathy, Cirrhosis Condition: Stable Coding Level of Care Code ED Building Construction Supervisor for Russ Baez
[2023-01-04 04:41] LABS: Basophils % 0.6 %; Eosinophils # 0.1 10^3/uL (0.0-0.8); Eosinophils % 0.9 %; Hematocrit 37.1 % (36-47); Lymphocytes # 0.6 10^3/uL (0.8-4.8); Lymphocytes % 9.7 %; Mean Corpuscular HGB Conc 31.5 g/dL (30-55); Mean Corpuscular Hemoglobin 26.3 pg (27-33); Mean Corpuscular Volume 83.4 fl (85-98); Monocytes # 0.5 10^3/uL (0.2-0.9); Monocytes % 8.4 %; Neutrophils # 5.05 10^3/uL (1.8-7.7); Neutrophils % 79.9 %; Nucleated Red Blood Cells % 0 %; Platelet Count 122 10^3/cmm (157-399); Red Blood Count 4.45 10^6/uL (3.85-5.65); Red Cell Distribution Width 19.1 % (12.1-15.1); White Blood Count 6.32 10^3/uL (3.29-11.43)
[2023-01-04] MEDS: sodium chloride 0.9% 1,000 ML 999 ML IV (04:55)
[2023-01-04 04:57] LABS: ABG PCO2 40.3 mmHg (35-45); ABG PH Result 7.42 (7.35-7.45); Arterial Blood Gas Hematocrit 34.4 % (37-47); Base Excess ABG 1.5 mmol/L (-2.0-2.0); Blood Gas Sample Site Brachial, right; Blood Gas Sample Type Arterial; HCO3 ABG 26.1 mmol/L (22-26); Oxygen Device ROOM AIR; PO2 ABG 78.3 mmHg (80.0-100.0)
[2023-01-04 05:08] LABS: Alanine Aminotransferase 41 U/L (0-33); Albumin Level 4.2 g/dL (3.5-5.2); Alkaline Phosphatase 239 U/L (35-105); Aspartate Amino Transferase 64 U/L (0-32); Blood Urea Nitrogen 27 mg/dL (6-20); C Reactive Protein 5.8 mg/L (0.0-4.9); Calcium 9.7 mg/dL (8.5-10.5); Carbon Dioxide 26 mmol/L (22-29); Chloride 97 mmol/L (98-107); Globulin 4.8 g/dL (1.3-4.6); Glomerular Filtration Rate 38.5 mL/min (90-130); Glucose 295 mg/dL (65-115); Osmolality Calculated 300 mOsm/kg (285-295); Sodium 137 mmol/L (136-145); Total Bilirubin 1.8 mg/dL (0.15-1.2)
[2023-01-04 05:09] LABS: Ammonia 244 umol/L (11-51); Lactic Sepsis W/Reflex 2.8 mmol/L (0.5-2.2)
[2023-01-04 05:11] LABS: Alcohol Level < 10 mg/dL (0-10)
[2023-01-04 05:36] LABS: Add Urine Microscopic? YES; Bilirubin Urine Neg (Negative); Blood Urine 3+ (Negative); Glucose Urine UA 4+ (Normal); Ketones Urine Negative (Negative); Leukocyte Esterase Urine Negative (Negative); Nitrate Urine Negative (Negative); Protein Urine 3+ (Negative); Urine Appearance Turbid (CLEAR); Urine Color Yellow (Yellow); Urobilinogen Urine Neg (Negative); pH Urine 6.5 (5-7)
[2023-01-04 05:37] LABS: Add Urine Culture? No; Bacteria Urine 1+ /hpf; Mucus Urine 1+ /hpf; WBC Urine 0-4 /hpf (0-5)
--- NOTE | 2023-01-04 06:01 | PM.HP ---
Providers/Chief Complaint Admitting Physician: Samir Steele Primary Care Provider: Jovan Singer MD Chief Complaint: AMS History of Present Illness Jacquelin Whiteside is a 57 year old female with history of nonalcoholic liver cirrhosis with multiple prior admissions with making encephalopathy is brought in for evaluation to the hospital due to lethargy, confusion, daytime sleepiness, did have an episode of vomiting yesterday but apart from that no other changes in her condition. states that she has continued taking lactulose but has not Been having many bowel movements. Abdomen somewhat distended. Last 1 was yesterday. In ER ammonia level is 244. Family was able to give her about 90 g of lactulose prior to coming in. Review of Systems General: Reports: ROS unobtainable due to mental status Medications/Allergies Home Medications Medication Instructions Recorded Confirmed Last Taken Type lancing device with lancets kit #1 ea 03/14/20 12/31/22 Unknown Rx lancets 33 gauge (BD Ultra Fine #100 ea 05/15/20 12/31/22 Unknown Rx Lancets) blood-glucose meter #1 ea 11/05/20 12/31/22 Unknown Rx blood sugar diagnostic (Blood #100 ea 07/23/21 12/31/22 Unknown Rx Glucose Test strips) pantoprazole 40 mg tablet,delayed 40 mg PO BID 03/06/22 12/31/22 11/11/22 History release potassium chloride 20 mEq 40 meq PO DAILY #60 tabs 07/17/22 12/31/22 11/11/22 Rx tablet,extended release nitroglycerin 0.4 mg sublingual 0.4 mg sublingual Q5M PRN Chest 07/18/22 12/31/22 Unknown History tablet (Nitrostat) Pain pen needle, diabetic 31 gauge x #150 ea 07/24/22 12/31/22 Unknown Rx 5/16 (BD Ultra-Fine Short Pen Needle) flash glucose scanning reader #1 ea 08/04/22 12/31/22 Unknown Rx (FreeStyle Mauricio 14 Day [place]) insulin glargine 100 unit/mL (3 45 unit (0.45 mL) SUBCUT BID #15 mL 10/30/22 12/31/22 11/11/22 Rx mL) subcutaneous pen (Lantus Solostar U-100 Insulin) morphine 30 mg tablet,extended See Rx Instructions PO TID PRN 10/10/23 11/08/23 Unknown Rx release Pain 30 days #90 tabs flash glucose sensor (FreeStyle #1 kit 12/15/22 12/31/22 Unknown Rx Mauricio 14 Day Sensor kit) insulin lispro 100 unit/mL See Rx Instructions .Route 12/24/22 12/31/22 Unknown Rx subcutaneous pen (Humalog KwikPen .COMPLEX #45 mL (U-100) Insulin) irbesartan 75 mg tablet 75 mg PO QAM #90 tabs 12/31/22 12/31/22 Unknown Rx lactulose 10 gram/15 mL oral 30 g (45 mL) PO BID #946 mL 12/31/22 12/31/22 Unknown Rx solution (Generlac) ondansetron HCl 4 mg tablet 4 mg PO Q8H PRN nausea and 12/31/22 12/31/22 Unknown Rx vomiting #90 tabs torsemide 40 mg tablet 40 mg PO QAM #60 tabs 01/01/23 Unknown Rx Allergies Allergy/AdvReac Type Severity Reaction Status Date / Time insulin degludec Allergy ALGY-Difficulty Verified 01/04/23 04:23 [From Tresiba FlexTouch Breathing U-100] levofloxacin Allergy SWELLING Verified 01/04/23 04:23 promethazine Allergy confusion Verified 01/04/23 04:23 rifaximin AdvReac Intermediate vomiting Verified 01/04/23 04:23 duloxetine AdvReac ADR-Swelling Verified 01/04/23 04:23 of the Eye PFSH Acute PFSH: Medical History (HFpEF) heart failure with preserved ejection fraction Acute hepatic encephalopathy Atherosclerosis of coronary artery of [place] heart without angina pectoris Atrial fibrillation Patient had atrial fibrillation postoperatively. Apparently the subsequent Holter monitor and event monitor did not reveal any recurrence of atrial fibrillation. CAD (coronary artery disease) Carpal tunnel syndrome Cirrhosis Diabetes mellitus Diabetic neuropathy Encephalopathy Encephalopathy, hepatic Essential hypertension Fe deficiency anemia Hepatomegaly History of [place] (myocardial infarction) (~2006) Hyperammonemia Hyperlipidemia Migraine Neuropathy Pacemaker (~2012) Splenomegaly Sporadic pituitary adenoma Stage 3b chronic kidney disease (CKD) Thrombocytopenia Surgical History History of esophageal surgery History of esophagogastroduodenoscopy (EGD) 4-5 years History of permanent cardiac pacemaker placement Hx of colonoscopy 10 plus years S/P arterial stent x 3; approximately in 2012, 2013 - [facility] S/P brain surgery (~2005) Removal of brain tumor- benign; in the pituitary gland S/P CABG x 2 in 2006 S/P section performed in 1990, 1992 S/P hysterectomy (~1992) converted from C/Section to NAMAN,bilateral salpingectomy, probable ovaries remain. Most likely performed by Dr. Roper. Vulvar abscess (~05/01/15) I&D of left labia majora abscess; performed by [facility]. Family History Brother Stroke Diabetes Mother , 72 Diabetes Heart disease Hypertension Stroke Father , 68 Diabetes Heart disease Hypertension Stroke Grandmother Diabetes Maternal Other CAD (coronary artery disease) Hyperlipidemia Lung disease Denies family history of Colon cancer Ovarian cancer Clotting disorder Dementia Hypercholesteremia Psychiatric illness Chronic kidney disease (CKD) Breast cancer Anesthesia complication Bleeding disorder Cancer Uterine cancer Thyroid disease Social History Smoking and tobacco/nicotine status: former use of tobacco/nicotine (20+ years) Alcohol intake: never Substance/Drug Use: never Caregiver/support person: Yes Lives independently: Yes Household members: spouse Housing: House Marital status: Number of children: 2 Current occupational status: disabled Current gender identity: Female Special sary needs: No Agree to transfusion: Yes Vitals/I&O/Wt Last Vital Signs Temp 97.7 F 01/04/23 04:16 Pulse 60 01/04/23 05:50 Resp 20 H 01/04/23 05:50 BP 156/77 01/04/23 05:50 Pulse Ox 95 01/04/23 05:50 O2 Del Method Room Air 01/04/23 05:50 Weight last 48 hrs Weight 99.79 kg Physical Exam Const: COMMON NORMALS: negative for alert GENERAL APPEARANCE: not cooperative ORIENTATION/CONSCIOUSNESS: not awake HENMT: COMMON NORMALS: oropharynx normal Neck/C-Spine: COMMON NORMALS: no JVD Resp: COMMON NORMALS: normal respiratory effort and clear to auscultation bilaterally AUSCULTATION: clear to auscultation bilaterally Cardio: COMMON NORMALS: no JVD, regular rhythm, S1 normal heart sound present, S2 normal heart sound present and No murmurs present (Cardio) RHYTHM: regular rhythm HEART SOUNDS: S1 normal heart sound present and S2 normal heart sound present GI: COMMON NORMALS: Soft to palpation and non-tender INSPECTION: Yes abdominal distension PALPATION: Yes Soft to palpation Extremity: COMMON NORMALS: no joint enlargement and no pedal edema Neuro: COMMON NORMALS: moves all extremities SENSORIUM/ORIENTATION: Yes alert Skin: COMMON NORMALS: no rashes or lesions noted GENERAL SKIN EXAM: no rashes or lesions noted Data 01/04/23 04:25 01/04/23 04:25 A&P Assessment and plan (1) Acute encephalopathy: Acute encephalopathy, appears to be acute metabolic encephalopathy secondary to hepatic encephalopathy with hyperammonemia, ammonia noted 244. Does not appear to have a clear infectious trigger. Has not had any complaints apart from an episode of vomiting yesterday. she is lethargic, unable to provide history, history obtained from her . Discussed with ER physician, ER documentation reviewed. Vitals reviewed, reviewed CBC, noted mild thrombocytopenia, reviewed ABG, CMP, noted CKD, liver function abnormality. UA with 10-15 RBC but otherwise not suggestive of infection, although sample is somewhat contaminated 10-15 squamous particularly of cells, but nitrate negative and leukocyte esterase negative, Not suggestive of UTI. Head CT reviewed and unremarkable. She does not appear to have any focal abnormality grossly, although does not cooperate with neurological exam. We will additionally assess with CT abdomen pelvis to assess for any obstruction, ascites which if present would benefit from paracentesis to assess for SBP, Although otherwise suspicion is low. Treat hyperammonemia, continue lactulose will provide rectal option as she is lethargic, continue every 6 hours, if able to take p.o., make p.o. available as well. Follow-up condition for any changes. Follow-up blood counts, chemistry requested. At risk of electrolyte, acid-base abnormality with intensified laxative regimen. Follow-up chemistry requested. N.p.o. with sips, chips, meds for now. (2) Vomiting: Had an episode of vomiting yesterday. Abdomen is somewhat distended. Will assess with noncontrast CT to look for any obstruction as well as to see if there is any ascites. Antiemetic as needed. PPI. Treat hyperammonemia. (3) Abdominal distention: Additional assessment as above with CT abdomen pelvis to look for any ascites/obstruction or other causes. Abdomen is otherwise soft, nontender. (4) Type 2 [place] (myocardial infarction): As she is not currently eating we will decrease Lantus dose to 20 units twice daily. Sliding scale insulin. Accu-Cheks. Plan HFpEF, not in exacerbation Atrial fibrillation, heart rate controlled, not on anticoagulation due to risk of bleeding Liver cirrhosis with decompensation. History of esophageal varices. HTN Iron deficiency anemia HLD Pacemaker CKD Other medical problems Requested home medications to be confirmed, please review and reorder once available. Attestations Medical Necessity Statement*: Admission over 2 midnights anticipated for assessment management of acute encephalopathy with lethargy, secondary to hepatic encephalopathy with decompensated liver cirrhosis. Abdominal distention, assessment for ascites/SBP, bowel obstruction due to vomiting. Diagnoses Acute encephalopathy G93.40 Vomiting R11.10 Abdominal distention R14.0 Type 2 [place] (myocardial infarction) I21.A1
[2023-01-04 06:25] LABS: Reflex Lactate Order REFLEX LACTIC ORDERD
--- NOTE | 2023-01-04 06:40 | CTR_ITS ---
PROCEDURE INFORMATION: Exam: CT Abdomen And Pelvis Without Contrast Exam date and time: 01/04/2023 4:50 PM Age: 57 years old Clinical indication: Abdominal pain; Generalized; Additional info: Assess for any obstruction, drainable ascites TECHNIQUE: Imaging protocol: Computed tomography of the abdomen and pelvis without contrast. Radiation optimization: All CT scans at this facility use at least one of these dose optimization techniques: automated exposure control; mA and/or kV adjustment per patient size (includes targeted exams where dose is matched to clinical indication); or iterative reconstruction. REPORTING DATA: Count of CT and Cardiac NM exams in prior 12 months: This patient has received 6 known CTs and 0 known cardiac nuclear medicine studies in the 12 months prior to the current study. COMPARISON: [place] [id number] 03/06/2022 4:45 AM RADIATION DOSE METRICS: Total DLP (mGy-cm): 1035.64 FINDINGS: Liver: Cirrhotic liver morphology. A couple subcentimeter low-attenuation lesions noted within the left hepatic lobe, likely small cysts. Gallbladder and bile ducts: Punctate cholelithiasis. No ductal dilation. Pancreas: Normal. No ductal dilation. Spleen: Splenomegaly measuring 15 cm in length. Adrenal glands: Normal. No mass. Kidneys and ureters: Normal. No hydronephrosis. Stomach and bowel: Unremarkable. No obstruction. No mucosal thickening. Appendix: No evidence of appendicitis. Intraperitoneal space: Unremarkable. No free air. No significant fluid collection. Vasculature: Sequela of portal hypertension including recanalization of the umbilical vein and small abdominal varices. No abdominal aortic aneurysm. Lymph nodes: Unremarkable. No enlarged lymph nodes. Urinary bladder: Circumferential wall thickening of the bladder. Reproductive: Unremarkable as visualized. Bones/joints: No acute fracture. Soft tissues: Unremarkable. CT/CT abdomen pelvis wo con [id number] IMPRESSION: 1. Cirrhotic liver with sequela of portal hypertension including splenomegaly, recanalized umbilical vein, and small upper abdominal varices. No drainable ascites or bowel obstruction. 2. Circumferential wall thickening of the bladder. Correlate with urinalysis to assess for cystitis.
[2023-01-04 07:10] LABS: Thyroid Stimulating Hormone 1.06 uIU/mL (0.27-4.20)
[2023-01-04] MEDS: lactulose oral liq 20 gm/30 mL UDC 30 GM PO ×2 (07:12→12:51)
[2023-01-04] MEDS: lactulose oral liq 20 gm/30 mL UDC 200 GM PR ×2 (07:13→12:55)
[2023-01-04 07:41] LABS: Lactic Acid level (Lactate) 2.7 mmol/L (0.5-2.2)
--- NOTE | 2023-01-04 08:26 | PC.NURSE ---
Dexac[facility] BS 301 at 0826 on 01/04/23.
--- NOTE | 2023-01-04 08:53 | PC.NURSE ---
Report received from charge nurse, DAISY Cervantes Care assumed.
[2023-01-04] MEDS: insulin lispro 100 unit/1 mL SUBCUT ×4 (09:14→20:37)
[2023-01-04] MEDS: pantoprazole 40 mg SDV IVP (09:15)
[2023-01-04] MEDS: insulin glargine 100 units/1 mL 40 UNIT SUBCUT (09:54)
[2023-01-04] MEDS: morphine IR 15 mg Tablet PO (10:32)
--- NOTE | 2023-01-04 10:36 | PC.NURSE ---
Dexcom BS [id number] (01/04/23 at 1036)
--- NOTE | 2023-01-04 17:01 | PC.NURSE ---
Dexcom BS 196 at 01/04/23 1705
--- NOTE | 2023-01-04 18:12 | PC.NURSE ---
Per patient Dexcom BS 145mg/dl at this time, treated this blood sugar with 2 units see APR.
--- NOTE | 2023-01-04 20:01 | PC.NURSE ---
Shift summary: Pt states she feels much better I am ready to go home . No confusion or AMS noted. Dexcom BS readings used to treat her blood sugar, she has not required much insulin. She was started on a clear liquid diet today tolerating that well. NO nausea or vomiting. She received Lactulose enema and an oral dose around noon. Effective as Green liquid stool noted, shortly there after. Pt has had 6 Bms, so this evening's dose of lactulose WI and PO both held. Her was adamant about her not missing her morphine this morning. Pt was worried she would start withdrawal too. She stated she did last admit. They both verbalized understanding that morphine was not a good choice for her liver. She did have 15mg Morphine tablet this am. No more concerns about morphine voiced from either the pt or .
[2023-01-04] MEDS: morphine ER (12 HR) 30 mg tablet PO (20:40)
[2023-01-05] MEDS: lactulose oral liq 20 gm/30 mL UDC 30 GM PO (00:58)
[2023-01-05 04:00] VITALS: BP 168/72; PULSE 63; RESP 16; TEMP 36.8; O2SAT 97
--- NOTE | 2023-01-05 06:50 | PC.NURSE ---
held scheduled lactulose per orders on apr, pt had 4 bm since last dose.
[2023-01-05 07:52] VITALS: BP 171/67; PULSE 62; RESP 20; TEMP 36.4; O2SAT 97
[2023-01-05] MEDS: insulin glargine 100 units/1 mL 40 UNIT SUBCUT (08:38)
[2023-01-05] MEDS: pantoprazole 40 mg SDV IVP (10:45)
--- NOTE | 2023-01-05 11:31 | P.DS_ITS ---
Discharge Providers Date of Admission: 01/04/23 05:40 Date of Discharge: January 05, 2023 Attending Provider at Admission: Samir Steele Attending Provider at Discharge: Humphrey Hooper MD Primary Care Provider: Jovan Singer MD Diagnoses at Discharge Discharge Diagnosis (1) Acute encephalopathy: Status: Acute (2) Vomiting: Status: Acute (3) Abdominal distention: Status: Acute (4) Type 2 [place] (myocardial infarction): Status: Acute Reason for Visit Reason for Visit: AMS Hospital Course Hospital Course 57-year female with history of liver cirrhosis, presented with hepatic encephalopathy, nonalcoholic liver cirrhosis, patient has questionable compliance with her lactulose and rifaximin, stating that she has been using morphine for her neuropathy, she is trying to taper off in the ER work-up was to showed cystitis. Ammonia level 244. Patient was given lactulose her mentation improved significantly. She was counseled at the time of discharge to use lactulose 3 times a day and adjust according to her level of hydration to prevent worsening of her confusion. She is asking for GI consultation/referral at [facility] at the time of discharge. She has not undergone EGD to rule out esophageal varices. Considering significant risk factor of progression of nonalcoholic liver disorders to liver cancer she will need annual screening by a senior contract specialist. Today she is being discharged with stable hemodynamics I have asked patient to taper off morphine in next few days by taking morphine on alternate days and then discontinuing Physical Exam Narrative: No active signs of hepatic encephalopathy Pleasant cooperative GCS 15 Awake and alert Nonfocal neuro exam at the bedside Abdomen soft Discharge Data Studies Completed and Pending Completed Studies During Hospitalization Category Date Time Status CT abdomen pelvis wo con [id number] Routine Cat Scan 01/04/23 06:[address] head wo con* [id number] Stat Cat Scan 01/04/23 04:26 Completed XR chest 1V portable [id number] Stat Exams 01/04/23 04:26 Completed Radiology Impressions Chest X-Ray 01/04/23 04:26 IMPRESSION: No evidence of acute pulmonary process. Head CT 01/04/23 04:26 IMPRESSION: No acute intracranial abnormality. Abdomen/Pelvis CT 01/04/23 06:40 IMPRESSION: 1. Cirrhotic liver with sequela of portal hypertension including splenomegaly, recanalized umbilical vein, and small upper abdominal varices. No drainable ascites or bowel obstruction. 2. Circumferential wall thickening of the bladder. Correlate with urinalysis to assess for cystitis. Laboratory Results WBC 6.32 10^3/uL (3.29-11.43) 01/04/23 04:25 RBC 4.45 10^6/uL (3.85-5.65) 01/04/23 04:25 Hgb 11.70 g/dL (11.27-16.99) 01/04/23 04:25 Hct 37.1 % (36-47) 01/04/23 04:25 MCV 83.4 fl (85-98) L 01/04/23 04:25 MCH 26.3 pg (27-33) L 01/04/23 04:25 MCHC 31.5 g/dL (30-55) 01/04/23 04:25 RDW 19.1 % (12.1-15.1) H 01/04/23 04:25 Plt Count 122 10^3/cmm (157-399) L 01/04/23 04:25 MPV 11.0 fL (7.4-10.4) H 01/04/23 04:25 Neut % (Auto) 79.9 % 01/04/23 04:25 Lymph % (Auto) 9.7 % 01/04/23 04:25 [place] % (Auto) 8.4 % 01/04/23 04:25 Eos % (Auto) 0.9 % 01/04/23 04:25 Baso % (Auto) 0.6 % 01/04/23 04:25 Neut # (Auto) 5.05 10^3/uL (1.8-7.7) 01/04/23 04:25 Lymph # (Auto) 0.6 10^3/uL (0.8-4.8) L 01/04/23 04:25 [place] # (Auto) 0.5 10^3/uL (0.2-0.9) 01/04/23 04:25 Eos # (Auto) 0.1 10^3/uL (0.0-0.8) 01/04/23 04:25 Baso # (Auto) 0.0 10^3/uL (0.0-0.1) 01/04/23 04:25 Nucleated RBC % (auto) 0 % 01/04/23 04:25 Nucleated RBCs # 0.0 /100WBC 01/04/23 04:25 Specimen Type Arterial 01/04/23 04:46 Sample Site Brachial, right 01/04/23 04:46 ABG pH 7.42 (7.35-7.45) 01/04/23 04:46 ABG pCO2 40.3 mmHg (35-45) 01/04/23 04:46 ABG pO2 78.3 mmHg (80.0-100.0) L 01/04/23 04:46 ABG HCO3 26.1 mmol/L (22-26) H 01/04/23 04:46 ABG Base Excess 1.5 mmol/L (-2.0-2.0) 01/04/23 04:46 Mike Test N/a 01/04/23 04:46 Hematocrit 34.4 % (37-47) L 01/04/23 04:46 O2 Delivery Device Room air 01/04/23 04:46 Embossing Unit Operator ID [email or web address] 01/04/23 04:46 Sodium 137 mmol/L (136-145) 01/04/23 04:25 Potassium 4.0 mmol/L (3.5-5.1) 01/04/23 04:25 Chloride 97 mmol/L (98-107) L 01/04/23 04:25 Carbon Dioxide 26 mmol/L (22-29) 01/04/23 04:25 Anion Gap 18.0 (5-19) 01/04/23 04:25 BUN 27 mg/dL (6-20) H 01/04/23 04:25 Creatinine 1.4 mg/dL (0.5-0.9) H 01/04/23 04:25 GFR Calculation 38.5 mL/min (90-130) L 01/04/23 04:25 Glucose 295 mg/dL (65-115) H 01/04/23 04:25 Calculated Osmolality 300 mOsm/kg (285-295) H 01/04/23 04:25 Lactic Acid 2.8 mmol/L (0.5-2.2) H 01/04/23 04:25 Lactic Acid (Sepsis) 2.7 mmol/L (0.5-2.2) H 01/04/23 07:12 Calcium 9.7 mg/dL (8.5-10.5) 01/04/23 04:25 Total Bilirubin 1.8 mg/dL (0.15-1.2) H 01/04/23 04:25 AST 64 U/L (0-32) H 01/04/23 04:25 ALT 41 U/L (0-33) H 01/04/23 04:25 Alkaline Phosphatase 239 U/L (35-105) H 01/04/23 04:25 Ammonia 244 umol/L (11-51) H 01/04/23 04:25 C-Reactive Protein 5.8 mg/L (0.0-4.9) H 01/04/23 04:25 Total Protein 9.0 g/dL (6.6-8.7) H 01/04/23 04:25 Albumin 4.2 g/dL (3.5-5.2) 01/04/23 04:25 Globulin 4.8 g/dL (1.3-4.6) H 01/04/23 04:25 TSH 1.06 uIU/mL (0.27-4.20) 01/04/23 04:45 Urine Color Yellow (Yellow) 01/04/23 05:00 Urine Appearance Turbid (CLEAR) A 01/04/23 05:00 Urine pH 6.5 (5-7) 01/04/23 05:00 Ur Specific [place] 1.010 (1.005-1.030) 01/04/23 05:00 Urine Protein 3+ (Negative) H 01/04/23 05:00 Urine Glucose (UA) 4+ (Normal) H 01/04/23 05:00 Urine Ketones Negative (Negative) 01/04/23 05:00 Urine Blood 3+ (Negative) H 01/04/23 05:00 Urine Nitrate Negative (Negative) 01/04/23 05:00 Urine Bilirubin Neg (Negative) 01/04/23 05:00 Urine Urobilinogen Neg mg/dL (Negative) 01/04/23 05:00 Ur Leukocyte Esterase Negative (Negative) 01/04/23 05:00 Urine RBC 10-15 /hpf (0-2) H 01/04/23 05:00 Urine WBC 0-4 /hpf (0-5) H 01/04/23 05:00 Ur Squamous Epith Cells 10-15 /hpf (0-5) H 01/04/23 05:00 Amorphous Sediment Not Reportable 01/04/23 05:00 Urine Bacteria 1+ /hpf (NONE) H 01/04/23 05:00 Urine Mucus 1+ /hpf 01/04/23 05:00 Ethyl Alcohol < 10 mg/dL (0-10) 01/04/23 04:25 Vitals Last Vital Signs Temp 97.5 F L 01/05/23 07:52 Pulse 62 01/05/23 07:52 Resp 20 H 01/05/23 07:52 BP 171/67 01/05/23 07:52 Pulse Ox 97 01/05/23 07:52 O2 Del Method Room Air 01/04/23 12:00 Discharge Plan Discharge Patient Disposition: Home Condition: Stable Prescriptions: New lactulose 20 gram/30 mL Solution 200 g [place] TID Qty: 3000 2RF rifaximin 550 mg tablet 550 mg PO BID Qty: 60 4RF cefpodoxime 200 mg tablet 200 mg PO BID Qty: 10 0RF Rx Instructions: must administer with a meal/food furosemide [Lasix] 20 mg tablet 20 mg PO DAILY Qty: 90 3RF Continued potassium chloride 20 mEq tablet extended release 40 meq PO DAILY Qty: 60 1RF irbesartan 75 mg tablet 75 mg PO QAM Qty: 90 0RF Generlac 10 gram/15 mL solution 30 g PO BID Qty: 946 3RF Rx Instructions: May titrate dose to 3-4 soft bowel movements/day ondansetron HCl 4 mg tablet 4 mg PO Q8H PRN (Reason: nausea and vomiting) Qty: 90 3RF (DME) lancing device with lancets Kit See Rx Instructions .ROUTE .MEDSUPPLY Qty: 1 0RF Rx Instructions: As directed (DME) lancets [BD Ultra Fine Lancets] 33 gauge misc See Rx Instructions .ROUTE .MEDSUPPLY Qty: 100 12RF Rx Instructions: test 4 times daily (DME) blood-glucose meter Kit See Rx Instructions .Route Qty: 1 11RF Rx Instructions: mauricio 14 with sensors and patches (DME) Blood Glucose Test Strip See Rx Instructions .ROUTE .MEDSUPPLY Qty: 100 6RF Rx Instructions: TEST UP TO 4 TIMES A DAY (DME) pen needle, diabetic [BD Ultra-Fine Short Pen Needle] 31 gauge x 5/16 needle See Rx Instructions .ROUTE .MEDSUPPLY Qty: 150 3RF Rx Instructions: test 5 times daily (DME) FreeStyle Mauricio 14 Day [place] Misc See Rx Instructions .Route Qty: 1 2RF Rx Instructions: As directed insulin glargine [Lantus Solostar U-100 Insulin] 100 unit/mL (3 mL) insulin pen 45 unit SUBCUT BID Qty: 15 3RF (DME) FreeStyle Mauricio 14 Day Sensor Kit See Rx Instructions .ROUTE .COMPLEX Qty: 1 2RF Dose Instruction: USE directed Rx Instructions: USE directed insulin lispro [Humalog KwikPen Insulin] 100 unit/mL insulin pen See Rx Instructions .ROUTE .COMPLEX Qty: 45 3RF Dose Instruction: INJECT using sliding scale THREE TIMES DAILY; max of 51 units DAILY Rx Instructions: INJECT using sliding scale THREE TIMES DAILY; max of 51 units DAILY pantoprazole 40 mg tablet,delayed release (DR/EC) 40 mg PO BID nitroglycerin [Nitrostat] 0.4 mg Tablet, Sublingual 0.4 mg SUBLINGUAL Q5M PRN (Reason: Chest Pain) Rx Instructions: do not exceed 3 doses per episode Discontinued morphine 30 mg tablet extended release See Rx Instructions PO TID PRN (Reason: Pain) 30 Days Qty: 90 0RF Rx Instructions: 30mg (1 tab) po every AM and 60mg (2 tabs) po every PM orally three times daily PRN; torsemide 40 mg tablet 40 mg PO QAM Qty: 60 1RF Discharge Orders: Discharge Order (Routine); Ordered 01/05/23 Ordered By: Humphrey Hooper Referrals: Gatito Smith MD [Referring] - 4-7 days (Nonalcoholic liver cirrhosis) Discharge Diet: Cardiac Discharge Activity: Increase activity as tolerated Patient Instructions: Opioid Safety Activity Restrictions/Additional Instructions: Please take lactulose 3 times a day to avoid constipation I am giving a referral to see senior contract specialist at [facility] For UTI take cefpodoxime 5-day course Discharge Attestations Time Spent in Discharge Care*: greater than 30 min Status at Discharge: Cognitive status at discharge: cognitively intact , Behavioral status at discharge: cooperative , Quality Metrics Clinical Quality Measures [ No reported AMI, CVA or VTE this stay] Coding Level of Care Code Acute Code for Chg Fwd Diagnoses Acute encephalopathy G93.40 Vomiting R11.10 Abdominal distention R14.0 Type 2 [place] (myocardial infarction) I21.A1
[2023-01-05 12:00] VITALS: BP 179/69; PULSE 59; RESP 18; TEMP 36.7; O2SAT 96
[2023-01-05] MEDS: insulin lispro 100 unit/1 mL SUBCUT (12:10)
[2023-01-05 12:28] VITALS: BP 179/69; PULSE 59; RESP 18; TEMP 36.7; O2SAT 96
== END 2023-01-05 12:25 | disposition home or self-care (01) ==
LOC: ER 04:34 → MEDSURG 08:14
PROVIDERS: Admitting Provider Internal Medicine; Emergency Provider Emergency Medicine; PCP Family Medicine; Visit Provider Internal Medicine
DX: G93.40 Encephalopathy, unspecified (principal); K74.60 Unspecified cirrhosis of liver; R14.0 Abdominal distension (gaseous); R11.10 Vomiting, unspecified; E11.22 Type 2 diabetes mellitus with diabetic chronic kidney disease; I13.0 Hypertensive heart and chronic kidney disease with heart failure and stage 1 through stage 4 chronic kidney disease, or unspecified chronic kidney disease; I50.30 Unspecified diastolic (congestive) heart failure; N18.30 Chronic kidney disease, stage 3 unspecified; N30.90 Cystitis, unspecified without hematuria; E11.40 Type 2 diabetes mellitus with diabetic neuropathy, unspecified; Z79.4 Long term (current) use of insulin; I25.10 Atherosclerotic heart disease of native coronary artery without angina pectoris; I25.2 Old myocardial infarction; Z95.0 Presence of cardiac pacemaker; Z95.1 Presence of aortocoronary bypass graft; Z95.5 Presence of coronary angioplasty implant and graft; Z87.891 Personal history of nicotine dependence; D50.9 Iron deficiency anemia, unspecified
CPT/HCPCS: 36415; 36600; 70450; 71045; 74176; 80053; 80307; 81001; 82140; 82803; 83605; 84443; 85025; 86140; 96360; 96372; 99285; C9113; G0378; J1815; J7030; Q3014

== ENCOUNTER 2023-01-19 13:00 | Oncology outpatient (recurring) (ONCR) | payer MEDICARE, MEDICAID, SELFPAY ==
[2022-12-29] MEDS: iron sucrose 200 MG in sodium chloride 0.9% (100 ml) 100 ML 220 MG IV (14:23)
[2022-12-29 15:00] VITALS: BP 154/64; PULSE 68; TEMP 37.4; O2SAT 97
[2023-01-12 14:06] VITALS: BP 91/46; PULSE 87; RESP 16; TEMP 36.3; O2SAT 98
[2023-01-12] MEDS: iron sucrose 200 MG in sodium chloride 0.9% (100 ml) 100 ML 220 MG IV (14:57)
[2023-01-12 15:30] VITALS: BP 116/55; PULSE 60; RESP 18; TEMP 36.1; O2SAT 99
== END 2023-01-22 23:59 | disposition home or self-care (01) ==
PROVIDERS: PCP Family Medicine; Visit Provider Family Medicine
DX: Z53.9 Procedure and treatment not carried out, unspecified reason (principal)
CPT/HCPCS: 96365; J1756

== ENCOUNTER 2023-03-04 15:22 | Emergency (ER) | payer MEDICARE, MEDICAID, SELFPAY ==
[2023-03-04 15:27] VITALS: BP 182/73; PULSE 84; RESP 16; TEMP 36.9; O2SAT 98; BMI 35.2
--- NOTE | 2023-03-04 18:11 | ED_ITS ---
HPI - Skin/Abscess/Foreign Bdy General: Chief complaint: Skin/Abscess/Foreign Body Stated complaint: large bump near vagina Time Seen by Provider: 03/04/23 18:06 History of Present Illness: 57-year-old female comes in today with c omplaints of swelling to the left labia. Patient noted a small pimple-like lesion to the lower left labia last week. Patient reports he is swollen more since he tried to pop it. Patient denies any fever or chills. Patient has put warm packs to it at home along with compresses with minimal relief or rupture of cyst. [facility] and was referred to the ER for further evaluation. Patient appears nontoxic. Patient denies any fever. Patient has a history of diabetes and liver disease. Review of Systems General: Reports: 10 or more systems reviewed and unremarkable except in HPI and below : Reports: other (Labial swelling) [facility] ED PFSH: Medical History Abdominal distention Vomiting Acute encephalopathy Encephalopathy, hepatic Hyperammonemia Encephalopathy Atherosclerosis of coronary artery of [place] heart without angina pectoris Diabetic neuropathy Stage 3b chronic kidney disease (CKD) Cirrhosis Type 2 [place] (myocardial infarction) Thrombocytopenia Acute hepatic encephalopathy (HFpEF) heart failure with preserved eje ction fraction Hepatomegaly Splenomegaly Carpal tunnel syndrome Migraine Sporadic pituitary adenoma History of [place] (myocardial infarction) (~2006) Essential hypertension Pacemaker (~2012) Atrial fibrillation Patient had atrial fibrillation postoperatively. Apparently the subsequent Holter monitor and event monitor did not reveal any recurrence of atrial fibrillation. Hyperlipidemia CAD (coronary artery disease) Neuropathy Diabetes mellitus Fe deficiency anemia Surgical History History of esophageal surgery History of permanent cardiac pacemaker placement History of esophagogastroduodenoscopy (EGD) 4-5 years Hx of colonoscopy 10 plus years Vulvar abscess (~05/01/15) I&D of left labia majora abscess; performed by [facility]. S/P arterial stent x 3; approximately in 2012, 2013 - [facility] S/P brain surgery (~2005) Removal of brain tumor- benign; in the pituitary gland S/P CABG x 2 in 2006 S/P section performed in 1990, 1992 S/P hysterectomy (~1992) converted from C/Section to NAMAN,bilateral salpingectomy, probable ovaries remain. Most likely performed by Dr. Roper. Family History Brother Stroke Diabetes Mother , 72 Diabetes Heart disease Hypertension Stroke Father , 68 Diabetes Heart disease Hypertension Stroke Grandmother Diabetes Maternal Other CAD (coronary artery disease) Hyperlipidemia Lung disease Denies family history of Colon cancer Ovarian cancer Clotting disorder Dementia Hypercholesteremia Psychiatric illness Chronic kidney disease (CKD) Breast cancer Anesthesia complication Bleeding disorder Cancer Uterine cancer Thyroid disease Physical Exam Const: COMMON NORMALS: alert HENMT: COMMON NORMALS: normocephalic HEAD & SCALP: normocephalic Neck/C-Spine: COMMON NORMALS: full ROM Resp: COMMON NORMALS: normal respiratory effort and clear to auscultation bilaterally AUSCULTATION: clear to auscultation bilaterally Cardio: COMMON NORMALS: regular rate RATE: regular rate GI: COMMON NORMALS: non-tender : EXTERNAL FEMALE EXAM: Yes other (Left labial swelling) Back/Pelvis: COMMON NORMALS: thoracic and lumbar spine normal to inspection Extremity: COMMON NORMALS: full ROM Neuro: SENSORIUM/ORIENTATION: Yes alert Procedures Abscess I/D Site: other (Left labial) Side (if applicable): left Local Anesthetic: lidocaine 1% Amount of anesthesia used (mL): 2 Technique: incised with #11 blade Amount of fluid expressed (mL): 15 Irrigation: No Packing used?: none Course Vital Signs: Vital signs: Vital Signs Temperature 98.4 F 03/04/23 15:27 Pulse Rate 84 03/04/23 15:27 Respiratory Rate 16 03/04/23 15:27 Blood Pressure 182/73 03/04/23 15:27 Pulse Oximetry 98 03/04/23 15:27 Oxygen Delivery Me thod Room Air 03/04/23 15:27 MDM - Skin/Abscess/Foreign Bdy Medicial Decision Making Patient comes in today with abscess to the left labia. On exam patient has some significant swelling to the left labia with a fluctuant mass in the lower aspect of the labia. Vitals are normal. Except for some elevated blood pressure. Differential diagnosis includes but not limited to abscess, necrotizing fasciitis, cellulitis. No signs of severe illness is noted. No crepitus is noted to the skin. Patient has a fluctuant mass with surrounding cellulitis. I&D was performed with moderate amount of purulent bloody drainage. Patient tolerated procedure well. Patient be placed on clindamycin 300 mg 4 times a day for the next 7 days. Patient was stable and discharged to home with recommendations to monitor for worsening symptoms and return to the ER for those symptoms. Patient reported understanding and agreed to plan. No radiology studies performed this visit Discharge Plan Discharge Patient Disposition: Home Clinical Impression: Abscess of left genital labia Condition: Stable Prescriptions: New clindamycin HCl 300 mg capsule 300 mg PO Q6H 7 Days Qty: 28 0RF No Action Generlac 10 gram/15 mL solution 30 g PO BID Qty: 946 3RF Rx Instructions: May titrate dose to 3-4 soft bowel movements/day ondansetron HCl 4 mg tablet 4 mg PO Q8H PRN (Reason: nausea and vomiting) Qty: 90 3RF morphine 30 mg tablet extended release 30 mg PO Q12H PRN (Reason: Pain) 30 Days Qty: 60 0RF (DME) lancing device with lancets Kit See Rx Instructions .ROUTE .MEDSUPPLY Qty: 1 0RF Rx Instructions: As directed (DME) lancets [BD Ultra Fine Lancets] 33 gauge misc See Rx Instructions .ROUTE .MEDSUPPLY Qty: 100 12RF Rx Instructions: test 4 times daily (DME) blood-glucose meter Kit See Rx Instructions .Route Qty: 1 11RF Rx Instructions: mauricio 14 with sensors and patches (DME) Blood Glucose Test Strip See Rx Instructions .ROUTE .MEDSUPPLY Qty: 100 6RF Rx Instructions: TEST UP TO 4 TIMES A DAY (DME) FreeStyle Mauricio 14 Day [place] Misc See Rx Instructions .Route Qty: 1 2RF Rx Instructions: As directed nitroglycerin 0.4 mg tablet, sublingual See Rx Instructions .ROUTE .COMPLEX Qty: 25 11RF Dose Instruction: DISSOLVE 1 TABLET UNDER TONGUE MAY REPEAT EVERY 5 MINUTES FOR A TOTAL OF 3 TABLETS NEEDED FOR CHEST PAIN Rx Instructions: DISSOLVE 1 TABLET UNDER TONGUE MAY REPEAT EVERY 5 MINUTES FOR A TOTAL OF 3 TABLETS NEEDED FOR CHEST PAIN irbesartan 75 mg tablet See Rx Instructions .ROUTE .COMPLEX Qty: 90 11RF Dose Instruction: TAKE 1 TABLET BY MOUTH EVERY DAY Rx Instructions: TAKE 1 TABLET BY MOUTH EVERY DAY potassium chloride 20 mEq tablet,ER particles/crystals See Rx Instructions .ROUTE .COMPLEX Qty: 270 11RF Dose Instruction: TAKE 1 TABLET BY MOUTH THREE TIMES DAILY Rx Instructions: TAKE 1 TABLET BY MOUTH THREE TIMES DAILY (DME) pen needle, diabetic [TechLITE Pen Needle] 31 gauge x 5/16 needle See Rx Instructions .ROUTE .COMPLEX Qty: 150 3RF Dose Instruction: USE DIRECTED Rx Instructions: USE DIRECTED insulin glargine [Lantus Solostar U-100 Insulin] 100 unit/mL (3 mL) insulin pen 45 unit SUBCUT BID Qty: 15 3RF insulin lispro [Humalog KwikPen Insulin] 100 unit/mL insulin pen See Rx Instructions .ROUTE .COMPLEX Qty: 45 3RF Dose Instruction: INJECT using sliding scale THREE TIMES DAILY; max of 51 units DAILY Rx Instructions: INJECT using sliding scale THREE TIMES DAILY; max of 51 units DAILY (DME) FreeStyle Mauricio 14 Day Sensor Kit See Rx Instructions .ROUTE .COMPLEX Qty: 1 5RF Dose Instruction: USE directed Rx Instructions: USE directed pantoprazole 40 mg tablet,delayed release (DR/EC) 40 mg PO BID lactulose 20 gram/30 mL Solution 200 g MS TID Qty: 3000 2RF Lasix 20 mg tablet 20 mg PO DAILY Qty: 90 3RF Discharge Orders: Discharge ED (Routine); Ordered 03/04/23 Ordered By: Fam Belle Referrals: Jovan Singer MD [Primary Care Provider] - Discharge Diet: Usual diet Discharge Activity: Increase activity as tolerated Patient Instructions: Abscess Incision and Drainage (DC) Activity Restrictions/Additional Instructions: Home and rest. Drink plenty of water and fluids. Take antibiotic as directed. Follow-up with primary care in 3 to 5 days for recheck. Return to ED for worsening symptoms such as inability to hold fluids down, fever greater than 100.4, increasing pain and swelling. Coding Level of Care Code ED Meter And Regulator Shop Supervisor for Russ Baez
[2023-03-04] MEDS: clindamycin 150 mg Capsule 300 MG PO (18:47)
[2023-03-04 19:29] VITALS: BP 182/73; PULSE 84; RESP 16; TEMP 36.9; O2SAT 98
== END 2023-03-04 19:46 | disposition home or self-care (01) ==
PROVIDERS: Emergency Provider Nurse Practitioner Family; PCP Family Medicine
DX: N76.4 Abscess of vulva (principal); Z79.4 Long term (current) use of insulin; Z95.1 Presence of aortocoronary bypass graft; Z95.0 Presence of cardiac pacemaker; I25.10 Atherosclerotic heart disease of native coronary artery without angina pectoris; E11.22 Type 2 diabetes mellitus with diabetic chronic kidney disease; I13.0 Hypertensive heart and chronic kidney disease with heart failure and stage 1 through stage 4 chronic kidney disease, or unspecified chronic kidney disease; N18.32 Chronic kidney disease, stage 3b; I50.9 Heart failure, unspecified; I25.2 Old myocardial infarction; E78.5 Hyperlipidemia, unspecified
CPT/HCPCS: 56405; 99283

== ENCOUNTER → 2023-04-29 09:48 | Outpatient (BNVA) | payer MEDICARE, MEDICAID, SELFPAY | PROVIDERS: PCP Family Medicine; Visit Provider Family Medicine | DX: R30.0 Dysuria (principal) | CPT/HCPCS: 81000 ==

== ENCOUNTER → 2023-05-06 17:13 | Outpatient (BNVA) | payer MEDICARE, MEDICAID, SELFPAY | PROVIDERS: PCP Family Medicine; Visit Provider Family Medicine | DX: R82.90 Unspecified abnormal findings in urine (principal) | CPT/HCPCS: 87086 ==

== ENCOUNTER → 2023-05-18 10:23 | Outpatient (BNVA) | payer MEDICARE, MEDICAID, SELFPAY | PROVIDERS: PCP Family Medicine; Visit Provider Family Medicine | DX: R30.0 Dysuria (principal) | CPT/HCPCS: 81000 ==

== ENCOUNTER 2023-08-04 12:39 | Observation (INO) | payer MEDICARE, MEDICAID, SELFPAY ==
[2023-08-04] VITALS (12 sets, daily range): BP systolic 105–210; BP diastolic 52–120; PULSE 60–90; RESP 15–20; TEMP 36.6–36.8; O2SAT 92–98
--- NOTE | 2023-08-04 12:40 | XRR_ITS ---
PROCEDURE INFORMATION: Exam: XR Chest Exam date and time: 08/04/2023 12:56 PM Age: 58 years old Clinical indication: Other: AMS; Prior surgery; Surgery date: 6+ months; Surgery type: Cabg pacer coronary stents TECHNIQUE: Imaging protocol: Radiologic exam of the chest. Views: 1 view. COMPARISON: CR XR chest 1V portable [id number] 01/04/2023 4:30 AM FINDINGS: Tubes, catheters and devices: Dual chamber pacemaker/cardioverter in appropriate position with lead tips in the right atrium and right ventricle. Airway: Patent Lungs: Low lung volumes causes crowding of the bronchovascular structures. No consolidations. Pleural spaces: Unremarkable. No pleural effusion. No pneumothorax. Heart/Mediastinum: Cardiomediastinal silhouette is magnified due to technique. Bones/joints: Sternotomy wires and mediastinal surgical clips are present, consistent with previous coronary arterial bypass grafting. XR/XR chest 1V portable [id number] IMPRESSION: No acute findings.
--- NOTE | 2023-08-04 12:41 | ECG_ITS ---
[facility] Test Date: 2023-08-04 Pat Name: Jacquelin Whiteside Department: Room: Gender: Female Seo Marketing Specialist: : 1965 Requested By: Vinay Pederson Order Number: [id number] Boom MD: Juanjo Rico M.D. Measurements Intervals [place] Rate: 80 P: 114 MS: 189 QRS: -60 QRSD: 158 T: 97 QT: 455 QTc: 526 Interpretive Statements ELECTRONIC ATRIAL PACEMAKER ELECTRONIC VENTRICULAR PACEMAKER Compared to ECG 07/18/2022 11:45:21 T-wave abnormality no longer present Electronically Signed On 08-04-2023 17:19:27 CDT by Juanjo Rico M.D. [id number]
--- NOTE | 2023-08-04 12:43 | CT_ITS ---
WS: [id number] CT HEAD TECHNIQUE: Noncontrast CT of the head obtained from the skullbase to the vertex. CLINICAL INFORMATION: ams COMPARISON: 2022 DLP: 829.[address] scans at [facility] use at least one of these dose optimization techniques: automated e xposure control; mA and/or kV adjustment per patient size (includes targeted exams where dose is matc hed to clinical indication); or iterative reconstruction. FINDINGS: No evidence of intracranial hemorrhage or mass effect. Ventricular system and basal cisterns are angel nt. Mild small vessel changes with mild parenchymal volume loss. No extra-axial fluid collections. No evidence of mass or mass effect. Paranasal sinuses and mastoid air cells are well aerated. .Normal visualized soft tissues. CT/CT head wo con* [id number] IMPRESSION: 1. No evidence of intracranial hemorrhage or mass effect. 2. No acute intracranial findings.
--- NOTE | 2023-08-04 12:47 | ED_ITS ---
HPI - Altered Mental Status 2 General: Chief Complaint: Altered Mental Status Stated Complaint: AMS Time Seen by Provider: 08/04/23 12:40 Source: EMS Mode of arrival: EMS Limitations: altered mental status History of Present Illness: 58-year-old female with a history of cir rhosis she has had hepatic encephalopathy in the past she is on lactulose patient's family states that she became altered when she woke up this morning quite confused here she is very confused unable to answer any questions no known illness no fevers. PFSH ED 2 PFSH: Medical History Abdominal distention Vomiting Acute encephalopathy Encephalopathy, hepatic Hyperammonemia Encephalopathy Atherosclerosis of coronary artery of [place] heart without angina pectoris Diabetic neuropathy Stage 3b chronic kidney disease (CKD) Cirrhosis Type 2 [place] (myocardial infarction) Thrombocytopenia Acute hepatic encephalopathy (HFpEF) heart failure with preserved eje ction fraction Hepatomegaly Splenomegaly Carpal tunnel syndrome Migraine Sporadic pituitary adenoma History of [place] (myocardial infarction) (~2006) Essential hypertension Pacemaker (~2012) Atrial fibrillation Patient had atrial fibrillation postoperatively. Apparently the subsequent Holter monitor and event monitor did not reveal any recurrence of atrial fibrillation. Hyperlipidemia CAD (coronary artery disease) Neuropathy Diabetes mellitus Fe deficiency anemia Surgical History History of esophageal surgery History of permanent cardiac pacemaker placement History of esophagogastroduodenoscopy (EGD) 4-5 years Hx of colonoscopy 10 plus years Vulvar abscess (~05/01/15) I&D of left labia majora abscess; performed by [facility]. S/P arterial stent x 3; approximately in 2012, 2013 - [place] S/P brain surgery (~2005) Removal of brain tumor- benign; in the pituitary gland S/P CABG x 2 in 2006 S/P section performed in 1990, 1992 S/P hysterectomy (~1992) converted from C/Section to NAMAN,bilateral salpingectomy, probable ovaries remain. Most likely performed by Dr. Roper. Family History Brother Stroke Diabetes Mother , 72 Diabetes Heart disease Hypertension Stroke Father , 68 Diabetes Heart disease Hypertension Stroke Grandmother Diabetes Maternal Other CAD (coronary artery disease) Hyperlipidemia Lung disease Denies family history of Colon cancer Ovarian cancer Clotting disorder Dementia Hypercholesteremia Psychiatric illness Chronic kidney disease (CKD) Breast cancer Anesthesia complication Bleeding disorder Cancer Uterine cancer Thyroid disease Social History Smoking and tobacco/nicotine status: former use of tobacco/nicotine Alcohol intake: never Substance/Drug Use: never Adopted: No service: No Current occupational exposures/hazards: No Current gender identity: Female Physical Exam 2 Const: COMMON NORMALS: healthy appearing and alert; negative for patient oriented x3 GENERAL APPEARANCE: ill appearing O RIENTATION/CONSCIOUSNESS: not oriented to person, not oriented to place and not oriented to time HENMT: COMMON NORMALS: normocephalic and atraumatic HEAD & SCALP: n ormocephalic and atraumatic Eye: COMMON NORMALS: Equal, round and reactive pupils present and EOMs intact bilaterally PUPIL: Yes Equal, round and reactive pupils present Neck/C-Spine: COMMON NORMALS: full ROM and supple Chest: COMMONS NORMALS: normal inspection of the chest Resp: COMMON NORMALS: normal respiratory effort Cardio: COMMON NORMALS: regular rate, regular rhythm and No murmurs present (Cardio) RATE: regular rate RHYTHM: regular rhythm GI: COMMON NORMALS: Normal to inspection, nondistended, normoactive bowel sounds present, Soft to palpation, non-tender and no masses PALPATION: Yes Soft to palpation Extremity: COMMON NORMALS: normal to inspection and full ROM Neuro: COMMON NORMALS: moves all extremities and no focal motor deficits; negative for patient oriented x3 SENSORIUM/ORIENTATION: Yes alert, No oriented to person, No oriented to place and No oriented to time Psych: COMMON NORMALS: cooperative; negative for mental status grossly normal Skin: COMMON NORMALS: no rashes or lesions noted and no wounds GENERAL SKIN EXAM: no rashes or lesions noted Course 2 Vital Signs: Vital signs: Vital Signs Temperature 98.2 F 08/04/23 12:47 Pulse Rate 90 08/04/23 12:47 Respiratory Rate 20 H 08/04/23 12:47 Blood Pressure 210/120 08/04/23 12:47 Pulse Oximetry 96 08/04/23 12:47 MDM - Altered Mental Status Medical Decision Making Patient presents here with altered mental status likely from hepatic encephalopathy her ammonia level is elevated she also has hyponatremia acute kidney injury did give her IV fluids along with lactulose spoke to the hospitalist will admit Medical Records I reviewed the patient's medical records. Lab Data I reviewed the patient's lab results. 08/04/23 13:14 08/04/23 13:14 Radiology Impressions Chest X-Ray 08/04/23 12:40 IMPRESSION: No acute findings. Head CT 08/04/23 12:43 IMPRESSION: 1. No evidence of intracranial hemorrhage or mass effect. 2. No acute intracranial findings. Laboratory Results WBC 6.98 10^3/uL (3.29-11.43) 08/04/23 13:14 RBC 4.37 10^6/uL (3.85-5.65) 08/04/23 13:14 Hgb 12.50 g/dL (11.27-16.99) 08/04/23 13:14 Hct 37.1 % (36-47) 08/04/23 13:14 MCV 84.9 fl (85-98) L 08/04/23 13:14 MCH 28.6 pg (27-33) 08/04/23 13:14 MCHC 33.7 g/dL (30-55) 08/04/23 13:14 RDW 14.8 % (12.1-15.1) 08/04/23 13:14 Plt Count 91 10^3/cmm (157-399) L 08/04/23 13:14 MPV 12.2 fL (7.4-10.4) H 08/04/23 13:14 Neut % (Auto) 80.9 % 08/04/23 13:14 Lymph % (Auto) 9.3 % 08/04/23 13:14 [place] % (Auto) 8.5 % 08/04/23 13:14 Eos % (Auto) 0.4 % 08/04/23 13:14 Baso % (Auto) 0.3 % 08/04/23 13:14 Neut # (Auto) 5.65 10^3/uL (1.8-7.7) 08/04/23 13:14 Lymph # (Auto) 0.7 10^3/uL (0.8-4.8) L 08/04/23 13:14 [place] # (Auto) 0.6 10^3/uL (0.2-0.9) 08/04/23 13:14 Eos # (Auto) 0.0 10^3/uL (0.0-0.8) 08/04/23 13:14 Baso # (Auto) 0.0 10^3/uL (0.0-0.1) 08/04/23 13:14 Nucleated RBC % (auto) 0 % 08/04/23 13:14 Nucleated RBCs # 0.0 /100WBC 08/04/23 13:14 Sodium 126 mmol/L (136-145) L 08/04/23 13:14 Potassium 5.0 mmol/L (3.5-5.1) 08/04/23 13:14 Chloride 92 mmol/L (98-107) L 08/04/23 13:14 Carbon Dioxide 19 mmol/L (22-29) L 08/04/23 13:14 Anion Gap 20.0 (5-19) H 08/04/23 13:14 BUN 39 mg/dL (8-23) H 08/04/23 13:14 Creatinine 2.2 mg/dL (0.5-0.9) H 08/04/23 13:14 GFR Calculation 22.8 mL/min (90-130) L 08/04/23 13:14 Glucose 472 mg/dL (65-115) H 08/04/23 13:14 Calculated Osmolality 292 mOsm/kg (285-295) 08/04/23 13:14 Calcium 9.1 mg/dL (8.5-10.5) 08/04/23 13:14 Magnesium 2.3 mg/dL (1.7-2.3) 08/04/23 13:14 Total Bilirubin 2.2 mg/dL (0.15-1.2) H 08/04/23 13:14 AST 57 U/L (0-32) H 08/04/23 13:14 ALT 42 U/L (0-33) H 08/04/23 13:14 Alkaline Phosphatase 328 U/L (35-105) H 08/04/23 13:14 Ammonia 142 umol/L (11-51) H 08/04/23 13:14 Total Protein 8.3 g/dL (6.6-8.7) 08/04/23 13:14 Albumin 3.6 g/dL (3.5-5.2) 08/04/23 13:14 Globulin 4.7 g/dL (1.3-4.6) H 08/04/23 13:14 Lipase 120 U/L (13-60) H 08/04/23 13:14 TSH 1.79 uIU/mL (0.27-4.20) 08/04/23 13:14 All radiology interpretation(s) finalized by discharge EKG Data EKG 1: I personally reviewed and interpreted this EKG as follows: EKG interpretation date: 08/04/23 EKG interpretation time: 12:51 Interpretation: paced her [address] or t wave abnormalities qrs 158 qtc 491 Discharge Plan Discharge Patient Disposition: Admitted As Inpatient Clinical Impression: Acute kidney injury, Hyponatremia, Acute hepatic encephalopathy Condition: Stable Prescriptions: No Action nitrofurantoin monohyd/m-cryst [Macrobid] 100 mg capsule 100 mg PO Q12H 5 Days Qty: 10 0RF Rx Instructions: must administer with a meal/food insulin glargine [Lantus Solostar U-100 Insulin] 100 unit/mL (3 mL) insulin pen 50 unit SUBCUT BID Qty: 30 4RF insulin lispro [Humalog KwikPen Insulin] 100 unit/mL insulin pen See Rx Instructions .ROUTE .COMPLEX Qty: 45 3RF Dose Instruction: INJECT using sliding scale THREE TIMES DAILY; max of 51 units DAILY Rx Instructions: INJECT using sliding scale THREE TIMES DAILY; max of 51 units DAILY spironolactone 50 mg tablet 50 mg PO DAILY Qty: 90 2RF pantoprazole 40 mg tablet,delayed release (DR/EC) 40 mg PO DAILY Qty: 90 1RF ondansetron HCl 4 mg tablet 4 mg PO Q8H PRN (Reason: nausea and vomiting) Qty: 90 3RF (DME) lancing device with lancets Kit See Rx Instructions .ROUTE .MEDSUPPLY Qty: 1 0RF Rx Instructions: As directed (DME) blood-glucose meter Kit See Rx Instructions .Route Qty: 1 11RF Rx Instructions: mauricio 14 with sensors and patches (DME) Blood Glucose Test Strip See Rx Instructions .ROUTE .MEDSUPPLY Qty: 100 6RF Rx Instructions: TEST UP TO 4 TIMES A DAY (DME) FreeStyle Mauricio 14 Day [place] Misc See Rx Instructions .Route Qty: 1 2RF Rx Instructions: As directed nitroglycerin 0.4 mg tablet, sublingual See Rx Instructions .ROUTE .COMPLEX Qty: 25 11RF Dose Instruction: DISSOLVE 1 TABLET UNDER TONGUE MAY REPEAT EVERY 5 MINUTES FOR A TOTAL OF 3 TABLETS NEEDED FOR CHEST PAIN Rx Instructions: DISSOLVE 1 TABLET UNDER TONGUE MAY REPEAT EVERY 5 MINUTES FOR A TOTAL OF 3 TABLETS NEEDED FOR CHEST PAIN potassium chloride 20 mEq tablet,ER particles/crystals See Rx Instructions .ROUTE .COMPLEX Qty: 270 11RF Dose Instruction: TAKE 1 TABLET BY MOUTH THREE TIMES DAILY Rx Instructions: TAKE 1 TABLET BY MOUTH THREE TIMES DAILY (DME) pen needle, diabetic [TechLITE Pen Needle] 31 gauge x 5/16 needle See Rx Instructions .ROUTE .COMPLEX Qty: 150 3RF Dose Instruction: USE DIRECTED Rx Instructions: USE DIRECTED (DME) FreeStyle Mauricio 14 Day Sensor Kit See Rx Instructions .ROUTE .COMPLEX Qty: 1 5RF Dose Instruction: USE directed Rx Instructions: USE directed (DME) lancets 33 gauge misc See Rx Instructions .ROUTE .MEDSUPPLY Qty: 100 12RF Rx Instructions: test 4 times daily lactulose 10 gram/15 mL solution 30 g PO BID Qty: 946 3RF Rx Instructions: May titrate dose to 3-4 soft bowel movements/day Jardiance 10 mg tablet 10 mg PO QAM Qty: 30 1RF irbesartan 75 mg tablet See Rx Instructions .ROUTE .COMPLEX Qty: 90 11RF Dose Instruction: TAKE 1 TABLET BY MOUTH EVERY DAY Rx Instructions: TAKE 1 TABLET BY MOUTH EVERY DAY morphine 30 mg tablet extended release 30 mg PO Q12H PRN (Reason: Pain) 30 Days Qty: 60 0RF fluconazole 150 mg tablet 150 mg PO DAILY 5 Days Qty: 5 0RF lactulose 20 gram/30 mL Solution 200 g CO TID Qty: 3000 2RF Lasix 20 mg tablet 20 mg PO DAILY Qty: 90 3RF Referrals: Jovan Singer MD [Primary Care Provider] - Patient Instructions: Altered Mental Status (ED) Coding Level of Care Code ED Storeroom Attendant for Russ Baez
[2023-08-04 13:22] LABS: Basophils % 0.3 %; Eosinophils % 0.4 %; Hematocrit 37.1 % (36-47); Lymphocytes # 0.7 10^3/uL (0.8-4.8); Lymphocytes % 9.3 %; Mean Corpuscular HGB Conc 33.7 g/dL (30-55); Mean Corpuscular Hemoglobin 28.6 pg (27-33); Mean Corpuscular Volume 84.9 fl (85-98); Mean Platelet Volume 12.2 fL (7.4-10.4); Monocytes # 0.6 10^3/uL (0.2-0.9); Monocytes % 8.5 %; Neutrophils # 5.65 10^3/uL (1.8-7.7); Neutrophils % 80.9 %; Nucleated Red Blood Cells % 0 %; Platelet Count 91 10^3/cmm (157-399); Red Blood Count 4.37 10^6/uL (3.85-5.65); Red Cell Distribution Width 14.8 % (12.1-15.1); White Blood Count 6.98 10^3/uL (3.29-11.43)
[2023-08-04 13:42] LABS: Ammonia 142 umol/L (11-51)
[2023-08-04 13:49] LABS: Alanine Aminotransferase 42 U/L (0-33); Albumin Level 3.6 g/dL (3.5-5.2); Alkaline Phosphatase 328 U/L (35-105); Aspartate Amino Transferase 57 U/L (0-32); Blood Urea Nitrogen 39 mg/dL (8-23); Calcium 9.1 mg/dL (8.5-10.5); Carbon Dioxide 19 mmol/L (22-29); Chloride 92 mmol/L (98-107); Creatinine Clr Calc Pharmacy 33.9677; Globulin 4.7 g/dL (1.3-4.6); Glomerular Filtration Rate 22.8 mL/min (90-130); Glucose 472 mg/dL (65-115); Lipase 120 U/L (13-60); Magnesium 2.3 mg/dL (1.7-2.3); Osmolality Calculated 292 mOsm/kg (285-295); Sodium 126 mmol/L (136-145); Thyroid Stimulating Hormone 1.79 uIU/mL (0.27-4.20); Total Bilirubin 2.2 mg/dL (0.15-1.2); Total Protein 8.3 g/dL (6.6-8.7)
[2023-08-04] MEDS: lactulose oral liq 20 gm/30 mL UDC 30 GM PO (13:58)
[2023-08-04] MEDS: sodium chloride 0.9% 1,000 ML 999 ML IV (14:20)
[2023-08-04] MEDS: insulin regular-human 100 units/1 mL 8 UNIT IVP (14:20)
--- NOTE | 2023-08-04 15:04 | PM.HP ---
Providers/Chief Complaint Admitting Physician: Leonor Chacko MD Primary Care Provider: Jovan Singer MD Chief Complaint: AMS History of Present Illness Jacquelin Whiteside is a 58 year old female who presents to the emergency room with chief complaint of change in mental status. Her awoke and found Mrs. Whiteside sitting at the kitchen table out of it . She was not really able to talk in a way to make sense and could not really walk on her own. He moved her to her recliner and attempted to give her some lactulose as presentation was similar to other episodes of acute hepatic encephalopathy. She has a known history of nonalcoholic cirrhosis with several episodes of acute hepatic encephalopathy, known esophageal varices, low platelets and elevation in liver enzymes. She is on lactulose and rifaximin. Both her and her indicate that she had 3 bowel movements yesterday and 2 or 3 the day before that. Mrs. Whiteside confusion today continued to worsen and her ended up calling for an ambulance. She was unable to assist herself in walking at all. On arrival to the emergency room she was unable to answer any questions. Workup revealed an ammonia level of 142. She was given 30 of lactulose in the ER and request was made for admission. In addition to the elevated ammonia level she had evidence of acute kidney injury with increased BUN and creatinine from baseline along with hyponatremia and hypochloremia. She is chronically on furosemide and hydrochlorothiazide, both of which she took this morning. In addition she is on extended release morphine 30 mg twice a day for severe chronic neuropathic pain/chronic pain. She takes her doses of this when she wakes up in the morning and then again in the evening roughly 12 hours apart. No report of any nausea or vomiting. No abdominal pain or diarrhea. No difficulty with urination. She has not had chest pain, cough, difficulty breathing. She does indicate that she has been drinking a lot of water the last few days and felt significantly thirsty. Her blood sugars have been fluctuating quite a bit. Her did check her blood sugars this morning when she was not as responsive and they were not low or particularly abnormally high for her. Only recent new medications are fluconazole that was added for vaginal yeast infection. She is on day #3. She does have a history of coronary artery disease with prior bypass surgery and stent placement and has a pacemaker due to episodes of bradycardia that were symptomatic. She does not recall events today and therefore no recollection of any preceding symptoms. There is no complete loss of consciousness and no injury. She does have some sores in her sacral area and admits that she spends a lot of her time sitting in [address] and not getting up and moving around much. She has been using diaper rash cream and Vaseline over these areas. No recent fever. No headache or vision changes. No abnormal movements noted. Patient is not quite back to baseline per her at the time of admission. Review of Systems General: Reports: Other (ROS as per HPI or as otherwise noted here) Const: Denies: fever(s) or change in weight Card: Denies: swelling of feet/ankles GI: Reports: other (Yesterday had increased abdominal girth, not noted today); Denies: hematochezia or melena Musc: Reports: other (Neuropathic pain) Neuro: Reports: other (Severe neuropathy) Endo: Reports: polydipsia Naveen/Lymph: Reports: easy bruising; Denies: easy bleeding Medications/Allergies Home Medications Medication Instructions Recorded Confirmed Last Taken Type lancing device with lancets kit #1 ea 03/14/20 08/04/23 Unknown Rx blood-glucose meter #1 ea 11/05/20 08/04/23 Unknown Rx blood sugar diagnostic (Blood #100 ea 07/23/21 08/04/23 Unknown Rx Glucose Test strips) flash glucose scanning reader #1 ea 08/04/22 08/04/23 Unknown Rx (FreeStyle Mauricio 14 Day [place]) ondansetron HCl 4 mg tablet 4 mg PO Q8H PRN nausea and 12/31/22 08/04/23 Unknown Rx vomiting #90 tabs nitroglycerin 0.4 mg sublingual See Rx Instructions .Route 01/09/23 08/04/23 Unknown Rx tablet .COMPLEX #25 ea pen needle, diabetic 31 gauge x #150 ea 02/02/23 08/04/23 Unknown Rx 5/16 (TechLITE Pen Needle) insulin glargine 100 unit/mL (3 50 unit (0.5 mL) SUBCUT BID #30 mL 05/18/23 08/04/23 08/04/23 Rx mL) subcutaneous pen (Lantus Solostar U-100 Insulin) insulin lispro 100 unit/mL See Rx Instructions .Route 03/08/04/23 08/04/23 Rx subcutaneous pen (Humalog KwikPen .COMPLEX #45 mL (U-100) Insulin) flash glucose sensor (FreeStyle #1 kit 05/22/23 08/04/23 Unknown Rx Mauricio 14 Day Sensor kit) lancets 33 gauge #100 ea 06/04/23 08/04/23 Unknown Rx pantoprazole 40 mg tablet,delayed 40 mg PO DAILY #90 tabs 06/15/23 08/04/23 08/04/23 Rx release spironolactone 50 mg tablet 50 mg PO DAILY #90 tabs 06/15/23 08/04/23 08/04/23 Rx empagliflozin 10 mg tablet 10 mg PO QAM #30 tabs 07/28/23 08/04/23 08/04/23 Rx (Jardiance) morphine 30 mg tablet,extended 30 mg PO Q12H PRN Pain 30 days #60 07/30/23 08/04/23 08/04/23 Rx release tabs fluconazole 150 mg tablet 150 mg PO DAILY 5 days #5 tabs 07/31/23 08/04/23 08/04/23 Rx carvedilol 3.125 mg tablet 3.125 mg PO BID 08/04/23 08/04/23 08/04/23 History furosemide 20 mg tablet (Lasix) 20 mg PO DAILY PRN Edema 08/04/23 08/04/23 Unknown History irbesartan 75 mg tablet 75 mg PO DAILY 08/04/23 08/04/23 08/04/23 History lactulose 10 gram/15 mL oral 45 g PO TID 08/04/23 08/04/23 Unknown History solution naloxone 4 mg/actuation nasal spray See Rx Instructions .Route .COMPLEX 08/04/23 08/04/23 Unknown History rifaximin 550 mg tablet (Xifaxan) 550 mg PO BID 08/04/23 08/04/23 08/04/23 History Allergies Allergy/AdvReac Type Severity Reaction Status Date / Time insulin degludec Allergy ALGY-Difficulty Verified 06/15/23 15:45 [From Tresiba FlexTouch Breathing U-100] levofloxacin Allergy SWELLING Verified 06/15/23 15:45 promethazine Allergy confusion Verified 06/15/23 15:45 duloxetine AdvReac ADR-Swelling Verified 06/15/23 15:45 of the Eye PFSH Acute PFSH: Medical History (Updated 08/04/23 @ 20:45 by Leonor Chacko MD) CASTANON (nonalcoholic steatohepatitis) Labial abscess 2015, 02/2023 s/p I&D Encephalopathy, hepatic Diabetic neuropathy Stage 3b chronic kidney disease (CKD) Cirrhosis Attributed to diabetes and chronic pain medication use her patient Thrombocytopenia (HFpEF) heart failure with preserved ejection fraction Hepatomegaly Splenomegaly Carpal tunnel syndrome Migraine Sporadic pituitary adenoma History of [place] (myocardial infarction) (~2006) Essential hypertension Pacemaker (~2012) due to symptomatic bradycardia Atrial fibrillation History of atrial fibrillation postoperatively. Hyperlipidemia CAD (coronary artery disease) Diabetes mellitus Fe deficiency anemia Surgical History History of esophageal surgery History of permanent cardiac pacemaker placement History of esophagogastroduodenoscopy (EGD) 4-5 years Hx of colonoscopy 10 plus years Vulvar abscess (~05/01/15) I&D of left labia majora abscess; performed by [facility]. S/P arterial stent x 3; approximately in 2012, 2013 - [facility] S/P brain surgery (~2005) Removal of brain tumor- benign; in the pituitary gland S/P CABG x 2 in 2006 S/P section performed in 1990, 1992 S/P hysterectomy (~1992) converted from C/Section to NAMAN,bilateral salpingectomy, probable ovaries remain. Most likely performed by Dr. Roper. Family History Brother Stroke Diabetes Mother , 72 Diabetes Heart disease Hypertension Stroke Father , 68 Diabetes Heart disease Hypertension Stroke Grandmother Diabetes Maternal Other CAD (coronary artery disease) Hyperlipidemia Lung disease Denies family history of Colon cancer Ovarian cancer Clotting disorder Dementia Hypercholesteremia Psychiatric illness Chronic kidney disease (CKD) Breast cancer Anesthesia complication Bleeding disorder Cancer Uterine cancer Thyroid disease Social History (Updated 08/04/23 @ 15:23 by Leonor Chacko MD) Smoking and tobacco/nicotine status: former use of tobacco/nicotine Alcohol intake: never Substance/Drug Use: never Adopted: No service: No Current gender identity: Female Vitals/I&O/Wt Last Vital Signs Temp 98.2 F 08/04/23 12:47 Pulse 90 08/04/23 12:47 Resp 20 H 08/04/23 12:47 BP 210/120 08/04/23 12:47 Pulse Ox 96 08/04/23 12:47 Weight last 48 hrs Weight 108.862 kg Physical Exam Narrative: Patient is awake and alert, able to provide history though does look to her for answers to some questions for the timeframe that she cannot recall. Normocephalic. Extraocular movements are intact. Oropharynx is clear with slightly dry mucous membranes. Neck is supple. Lungs are clear to auscultation bilaterally without any rales rhonchi or wheezes noted. Cardiovascular exam reveals a regular rate and rhythm. Abdomen is soft, slightly rotund but no significant fluid wave. No rebound or guarding noted. Positive bowel sounds. No pitting edema. Skin is dry. Bruising/ecchymosis noted to upper extremities as are chronic sun exposure changes. Sacral area is as pictured below: Skin: NARRATIVE SKIN EXAM: Above wounds are each roughly stas sized in diameter at largest diameter. No fluctuance. No drainage. No notable warmth. Two caudal and cephalic wounds when compared to the central one both have scab formation. Central wound with loss of top layer of skin and more tender than other 2 to touch.No palpable or visible tracking of wounds beyond what is seen above. Data 08/04/23 13:14 08/04/23 13:14 Other Labs: Radiology Impressions Chest X-Ray 08/04/23 12:40 IMPRESSION: No acute findings. Head CT 08/04/23 12:43 IMPRESSION: 1. No evidence of intracranial hemorrhage or mass effect. 2. No acute intracranial findings. Laboratory Results WBC 6.98 10^3/uL (3.29-11.43) 08/04/23 13:14 RBC 4.37 10^6/uL (3.85-5.65) 08/04/23 13:14 Hgb 12.50 g/dL (11.27-16.99) 08/04/23 13:14 Hct 37.1 % (36-47) 08/04/23 13:14 MCV 84.9 fl (85-98) L 08/04/23 13:14 MCH 28.6 pg (27-33) 08/04/23 13:14 MCHC 33.7 g/dL (30-55) 08/04/23 13:14 RDW 14.8 % (12.1-15.1) 08/04/23 13:14 Plt Count 91 10^3/cmm (157-399) L 08/04/23 13:14 MPV 12.2 fL (7.4-10.4) H 08/04/23 13:14 Neut % (Auto) 80.9 % 08/04/23 13:14 Lymph % (Auto) 9.3 % 08/04/23 13:14 [place] % (Auto) 8.5 % 08/04/23 13:14 Eos % (Auto) 0.4 % 08/04/23 13:14 Baso % (Auto) 0.3 % 08/04/23 13:14 Neut # (Auto) 5.65 10^3/uL (1.8-7.7) 08/04/23 13:14 Lymph # (Auto) 0.7 10^3/uL (0.8-4.8) L 08/04/23 13:14 [place] # (Auto) 0.6 10^3/uL (0.2-0.9) 08/04/23 13:14 Eos # (Auto) 0.0 10^3/uL (0.0-0.8) 08/04/23 13:14 Baso # (Auto) 0.0 10^3/uL (0.0-0.1) 08/04/23 13:14 Nucleated RBC % (auto) 0 % 08/04/23 13:14 Nucleated RBCs # 0.0 /100WBC 08/04/23 13:14 Sodium 126 mmol/L (136-145) L 08/04/23 13:14 Potassium 5.0 mmol/L (3.5-5.1) 08/04/23 13:14 Chloride 92 mmol/L (98-107) L 08/04/23 13:14 Carbon Dioxide 19 mmol/L (22-29) L 08/04/23 13:14 Anion Gap 20.0 (5-19) H 08/04/23 13:14 BUN 39 mg/dL (8-23) H 08/04/23 13:14 Creatinine 2.2 mg/dL (0.5-0.9) H 08/04/23 13:14 GFR Calculation 22.8 mL/min (90-130) L 08/04/23 13:14 Glucose 472 mg/dL (65-115) H 08/04/23 13:14 Calculated Osmolality 292 mOsm/kg (285-295) 08/04/23 13:14 Calcium 9.1 mg/dL (8.5-10.5) 08/04/23 13:14 Magnesium 2.3 mg/dL (1.7-2.3) 08/04/23 13:14 Total Bilirubin 2.2 mg/dL (0.15-1.2) H 08/04/23 13:14 AST 57 U/L (0-32) H 08/04/23 13:14 ALT 42 U/L (0-33) H 08/04/23 13:14 Alkaline Phosphatase 328 U/L (35-105) H 08/04/23 13:14 Ammonia 142 umol/L (11-51) H 08/04/23 13:14 Total Protein 8.3 g/dL (6.6-8.7) 08/04/23 13:14 Albumin 3.6 g/dL (3.5-5.2) 08/04/23 13:14 Globulin 4.7 g/dL (1.3-4.6) H 08/04/23 13:14 Lipase 120 U/L (13-60) H 08/04/23 13:14 TSH 1.79 uIU/mL (0.27-4.20) 08/04/23 13:14 Previous Laboratory Tests 01/04/23 04:25 Plt Count 122 L BUN 27 H Creatinine 1.4 H Total Bilirubin 1.8 H AST 64 H ALT 41 H Alkaline Phosphatase 239 H Ammonia 244 H A&P Assessment and plan (1) Acute encephalopathy: Initial consideration is for acute hepatic encephalopathy particularly given ammonia level of 142 at the time of admission. That said this is the lowest ammonia level patient has had in our records. I do not see that she has had a baseline ammonia level checked when she is doing well, only getting labs checked when she presents acutely. She has improved today though not yet quite back to baseline without any stool output. She has received oral lactulose. In looking at the overall picture I suspect that this is a combination metabolic encephalopathy from acute kidney injury combined with prolonged effects of prescribed morphine in the setting of acute kidney injury contributing to medication induced encephalopathy. She does have hyperglycemia and borderline anion gap. Hypoglycemia did not contribute to presentation today. Other than sacral wounds present on admission no other clear foci of infection identified as potential contributor. Interestingly lipase is elevated without any GI symptoms to note. (2) Acute kidney injury: Last comparative available labs showed BUN and creatinine 27/1.4 versus today's 39/2.2. Patient may have become volume depleted from continuation of diuretic therapy in the setting of higher temperatures recently. She does describe significant increase in thirst lately. Could be early DKA. Has glucosuria but no urinary ketones noted. I think this is less likely to be an hepatorenal situation but it remains within the differential diagnosis. (3) Chronic narcotic use: Chronically on extended release morphine, 30 mg twice a day. In the setting of #2 above dosing may be a little high for her. Hopefully with fluids renal function will improve and she will be able to resume her usual home dosing. Reviewed with her that if she has in fact progressed in her chronic kidney disease rather than just being acutely dehydrated consideration may have to be given to lowering the dose of morphine to prevent similar episodes to what she experienced today. Both her and her expressed understanding. (4) Cirrhosis: Nonalcoholic cirrhosis secondary to diabetes and chronic narcotic use per patient information. Has had recurrent hepatic encephalopathy with ammonia as high as 314. Today ammonia up to 142 which is the lowest value since February 2022. She has had elevated liver enzymes, low platelets, only a small amount of ascites and therefore has not required paracentesis. She does have known esophageal varices with episodes of bleeding in the past though none recently. Most recently available coagulation studies were normal. Has been referred to [facility] for evaluation for possible transplant. Qualifiers: Hepatic cirrhosis type: other cirrhosis Qualified Code(s): K74.69 - Other cirrhosis of liver (5) Diabetes mellitus: Type II, insulin requiring with severe peripheral neuropathy and hyperglycemia along with likely at least chronic kidney disease stage II/III if not stage IV by current calculations prior to hydration. Chronically on empagliflozin, Lantus, lispro and utilizes continuous glucose monitoring. (6) Essential hypertension: Chronically on carvedilol, Lasix, irbesartan and spironolactone (7) (HFpEF) heart failure with preserved ejection fraction: Last echocardiogram with ejection fraction 55 to 60%. Chronically on Lasix and Aldactone as well as ARB. Not presenting acute symptoms currently, chronic diagnosis Qualifiers: Heart failure chronicity: chronic Qualified Code(s): I50.32 - Chronic diastolic (congestive) heart failure (8) CAD (coronary artery disease): Last stress test in 2022 showed no evidence of ischemia with normal LV function. History of coronary artery bypass graft and multiple stents. Is chronically on beta-blockade, nitroglycerin, in addition to diuretics and ARB already mentioned. No recent chest pain or other clear anginal symptoms. Qualifiers: Associated angina: without angina Coronary Disease-Associated Artery/Lesion type: algaaciq artery [place] vs. transplanted heart: algaaciq heart Qualified Code(s): I25.10 - Atherosclerotic heart disease of algaaciq coronary artery without angina pectoris (9) Pacemaker: Secondary to history of symptomatic bradycardia. Last pacemaker check from December of last year no changes recommended. (10) Esophageal varices: History of varices, no recent bleeding. Chronically on PPI. Qualifiers: Esophageal varices bleeding: without bleeding Esophageal varices type: secondary Qualified Code(s): I85.10 - Secondary esophageal varices without bleeding (11) Neuropathy: Severe, related to diabetes. Chronically on extended release morphine (12) Lower extremity edema: Has been an issue on follow-up with primary care provider within the last year. Was started on furosemide in addition to spironolactone. Currently without edema on physical exam. (13) Yeast infection: Has recently been on fluconazole for vaginal yeast infection with a couple of days remaining in treatment. Could be a contributor to increase in LFTs. (14) Pressure injury of sacral region, stage 2: X 3 as noted in picture above. Present on admission. Has been managing with diaper rash cream and Vaseline as barrier protection. Encouraged to move around every few hours or at least change positioning and to notify primary care provider so he can follow the wounds. Plan Elevated lipase at the time of admission Observation admission IV fluids this evening Hold furosemide and Aldactone Recheck kidney function and electrolytes in the morning Will go on and continue her usual dosing of extended release morphine currently and monitor how she responds to it. Reviewed with both her and her that if she has similar changes in mental status and does not show improvement and renal function dosing of narcotics may need to be decreased for safety Continue Lantus along with moderate dose sliding scale insulin for diabetes Currently holding empagliflozin Will recheck lipase in the morning Continue home carvedilol Holding home ARB in addition to diuretic therapy Telemetry monitoring at least overnight for tacky arrhythmias given presentation; has a pacemaker Twelve-lead EKG showed paced rhythm Continue home PPI Have not continued fluconazole as she has received 3 days dosing, reviewed limiting courses of fluconazole for 3 to 5 days and not back to back given her history of liver disease Patient encouraged to turn every 2 hours and keep wounds open to air at this time Reviewed with nursing staff plans of care and sacral wounds VTE prophylaxis: SCDs GI Prophylaxis: PPI Antibiotics: none Pending studies: Repeat ammonia level, repeat lipase, morning labs, proBNP, INR/PTT Telemetry: Ordered secondary to history of coronary artery disease, degree of hypertension and holding of several medications in a patient with a history of arrhythmias and other issues acutely as noted above. Anticipate monitoring at least overnight and discontinuing when not demonstrating evidence of any tacky arrhythmias as she does have a pacemaker. Rodas: not currently indicated Line(s): peripheral IVs Disposition plan: Home with outpatient follow up to primary care provider as well as to GI specialist anticipated, pain specialist as well. Would benefit from baseline ammonia level when doing well for comparison sake in acute situations such as that which she presented today. May need adjustment in pain medication dosing depending on renal function after holding of medications and fluid administration Code Status: Full Code Supportive care otherwise Findings, concerns and plans were discussed with patient and and her and they were both given an opportunity to ask questions Attestations Medical Necessity Statement*: Currently anticipate a stay less than two midnights in this patient with comorbid medical conditions as noted above presenting with alteration mental status. She was found to have significant elevation in ammonia compared to normal though her baseline ammonia level is unknown. She has known cirrhosis. I think the greater history of concern at this point in time is acute kidney injury versus progression of chronic kidney disease and its impact on clearance of extended release morphine. Patient is almost back to baseline. Will continue fluids overnight recheck labs and vital signs tomorrow and make decisions regarding further plans of care. Challenges surrounding liver disease, kidney injury, narcotic use and overall management were discussed with patient and his to help them understand the complexity of some of Mrs. Whiteside management. and High Time for a total of 80 minutes, includes reviewing past or interval history, examining/interviewing patient, placing orders, counseling patient/family/other support, updating patient/family/other support, discussing plan of care with staff and documenting encounter Diagnoses Acute encephalopathy G93.40 Acute kidney injury N17.9 Chronic narcotic use F11.90 Other cirrhosis of liver K74.69 Hepatic cirrhosis type: other cirrhosis Diabetes mellitus E11.9 Essential hypertension I10 Chronic heart failure with preserved ejection fraction I50.32 Heart failure chronicity: chronic Coronary artery disease involving algaaciq coronary artery of algaaciq heart without angina pectoris I25.10 Associated angina: without angina Coronary Disease-Associated Artery/Lesion type: algaaciq artery [place] vs. transplanted heart: algaaciq heart Pacemaker Z95.0 Secondary esophageal varices without bleeding I85.10 Esophageal varices bleeding: without bleeding Esophageal varices type: secondary Neuropathy G62.9 Lower extremity edema R60.0 Yeast infection B37.9 Pressure injury of sacral region, stage 2 L89.152
[2023-08-04 16:51] LABS: Glucose Point of Care 449 mg/dL (70-110)
[2023-08-04] MEDS: sodium chloride 0.9% 1,000 ML 75 ML IV (17:46)
[2023-08-04] MEDS: lactulose oral liq 20 gm/30 mL UDC 40 GM PO (17:46)
[2023-08-04] MEDS: carvedilol 3.125 mg Tablet PO (17:46)
[2023-08-04] MEDS: insulin lispro 100 unit/1 mL SUBCUT ×2 (17:47→20:35)
[2023-08-04] MEDS: insulin glargine 100 units/1 mL 40 UNIT SUBCUT (17:47)
[2023-08-04 19:02] LABS: Add Urine Microscopic? NO; Charge for UA Resulting for Rev
[2023-08-04 19:15] LABS: Bilirubin Urine Neg (Negative); Blood Urine Neg (Negative); Glucose Urine UA 4+ (Normal); Ketones Urine Negative (Negative); Leukocyte Esterase Urine Negative (Negative); Nitrate Urine Negative (Negative); Protein Urine Neg (Negative); Specific Gravity, Urine 1.005 (1.005-1.030); Urine Appearance Clear (CLEAR); Urine Color Yellow (Yellow); Urobilinogen Urine Norm (Negative); pH Urine 5 (5-7)
[2023-08-04 20:31] LABS: Glucose Point of Care 467 mg/dL (70-110)
[2023-08-04] MEDS: morphine ER (12 HR) 30 mg tablet PO (20:36)
[2023-08-05] MEDS: lactulose oral liq 20 gm/30 mL UDC 40 GM PO ×2 (00:30→10:05)
[2023-08-05 04:00] VITALS: BP 138/67; PULSE 69; RESP 18; TEMP 36.8; O2SAT 96
[2023-08-05 04:42] LABS: INR 1.17 (0.8-1.2)
[2023-08-05 04:43] LABS: Partial Thromboplastin Time 25.5 SECONDS (23.9-36.7)
[2023-08-05 04:46] LABS: Alanine Aminotransferase 37 U/L (0-33); Albumin Level 3.1 g/dL (3.5-5.2); Alkaline Phosphatase 245 U/L (35-105); Aspartate Amino Transferase 55 U/L (0-32); Blood Urea Nitrogen 36 mg/dL (8-23); Calcium 8.5 mg/dL (8.5-10.5); Carbon Dioxide 21 mmol/L (22-29); Chloride 99 mmol/L (98-107); Creatinine Clr Calc Pharmacy 40.6594; Globulin 3.9 g/dL (1.3-4.6); Glomerular Filtration Rate 28.7 mL/min (90-130); Glucose 131 mg/dL (65-115); Lipase 61 U/L (13-60); Magnesium 2.5 mg/dL (1.7-2.3); Osmolality Calculated 284 mOsm/kg (285-295); Phosphorus 3.3 mg/dL (2.5-4.5); Sodium 132 mmol/L (136-145); Total Bilirubin 1.2 mg/dL (0.15-1.2)
[2023-08-05 04:48] LABS: Ammonia 122 umol/L (11-51)
[2023-08-05 04:50] LABS: Anion Gap 16.2 (5-19); Potassium 4.2 mmol/L (3.5-5.1)
[2023-08-05] MEDS: insulin glargine 100 units/1 mL 40 UNIT SUBCUT (05:37)
[2023-08-05 05:48] LABS: NT Pro B Type Natriuretic Pept 232 pg/mL (0-125)
[2023-08-05 06:00] VITALS: PULSE 60
[2023-08-05 06:21] LABS: Glucose Point of Care 105 mg/dL (70-110)
[2023-08-05] MEDS: morphine ER (12 HR) 30 mg tablet PO (07:58)
[2023-08-05] MEDS: pantoprazole DR 40 mg Tablet PO (07:58)
[2023-08-05] MEDS: carvedilol 3.125 mg Tablet PO (07:59)
[2023-08-05 08:00] VITALS: BP 166/71; PULSE 70; RESP 16; TEMP 36.6; O2SAT 94
[2023-08-05 09:00] VITALS: BP 122/58; PULSE 65; RESP 17; TEMP 36.7; O2SAT 98
--- NOTE | 2023-08-05 11:08 | PM.DCS ---
Discharge Providers Date of Admission: 08/04/23 15:55 Date of Discharge: August 05, 2023 Attending Provider at Admission: Leonor Chacko MD Attending Provider at Discharge: Cortney Morrissey MD Primary Care Provider: Jovan Singer MD Diagnoses at Discharge Discharge Diagnosis (1) Acute encephalopathy: Status: Acute (2) Acute kidney injury: Status: Acute (3) Chronic narcotic use: Status: Chronic Permanent problem details: extended release morphine for chronic pain (4) Cirrhosis: Status: Chronic Qualifiers: Hepatic cirrhosis type: other cirrhosis Qualified Code(s): K74.69 - Other cirrhosis of liver Permanent problem details: Attributed to diabetes and chronic pain medication use her patient (5) Diabetes mellitus: Status: Chronic (6) Essential hypertension: Status: Chronic (7) (HFpEF) heart failure with preserved ejection fraction: Status: Chronic Qualifiers: Heart failure chronicity: chronic Qualified Code(s): I50.32 - Chronic diastolic (congestive) heart failure (8) CAD (coronary artery disease): Status: Chronic Qualifiers: Coronary Disease-Associated Artery/Lesion type: [place] artery [place] vs. transplanted heart: [place] heart Associated angina: without angina Qualified Code(s): I25.10 - Atherosclerotic heart disease of [place] coronary artery without angina pectoris (9) Pacemaker: Status: Chronic Permanent problem details: due to symptomatic bradycardia (10) Esophageal varices: Status: Chronic Qualifiers: Esophageal varices type: secondary Esophageal varices bleeding: without bleeding Qualified Code(s): I85.10 - Secondary esophageal varices without bleeding (11) Neuropathy: Status: Chronic (12) Lower extremity edema: Status: Chronic (13) Yeast infection: Status: Acute (14) Pressure injury of sacral region, stage 2: Status: Acute Reason for Visit Reason for Visit: AMS Brief History: Jacquelin Whiteside is a 58 year old female who presents to the emergency room with chief complaint of change in mental status. Her awoke and found Mrs. Whiteside sitting at the kitchen table out of it . She was not really able to talk in a way to make sense and could not really walk on her own. He moved her to her recliner and attempted to give her some lactulose as presentation was similar to other episodes of acute hepatic encephalopathy. She has a known history of nonalcoholic cirrhosis with several episodes of acute hepatic encephalopathy, known esophageal varices, low platelets and elevation in liver enzymes. She is on lactulose and rifaximin. Both her and her indicate that she had 3 bowel movements yesterday and 2 or 3 the day before that. Mrs. Whiteside confusion today continued to worsen and her ended up calling for an ambulance. She was unable to assist herself in walking at all. On arrival to the emergency room she was unable to answer any questions. Workup revealed an ammonia level of 142. She was given 30 of lactulose in the ER and request was made for admission. In addition to the elevated ammonia level she had evidence of acute kidney injury with increased BUN and creatinine from baseline along with hyponatremia and hypochloremia. She is chronically on furosemide and hydrochlorothiazide, both of which she took this morning. In addition she is on extended release morphine 30 mg twice a day for severe chronic neuropathic pain/chronic pain. She takes her doses of this when she wakes up in the morning and then again in the evening roughly 12 hours apart. No report of any nausea or vomiting. No abdominal pain or diarrhea. No difficulty with urination. She has not had chest pain, cough, difficulty breathing. She does indicate that she has been drinking a lot of water the last few days and felt significantly thirsty. Her blood sugars have been fluctuating quite a bit. Her did check her blood sugars this morning when she was not as responsive and they were not low or particularly abnormally high for her. Only recent new medications are fluconazole that was added for vaginal yeast infection. She is on day #3. She does have a history of coronary artery disease with prior bypass surgery and stent placement and has a pacemaker due to episodes of bradycardia that were symptomatic. She does not recall events today and therefore no recollection of any preceding symptoms. There is no complete loss of consciousness and no injury. She does have some sores in her sacral area and admits that she spends a lot of her time sitting in [address] and not getting up and moving around much. She has been using diaper rash cream and Vaseline over these areas. No recent fever. No headache or vision changes. No abnormal movements noted. Patient is not quite back to baseline per her at the time of admission. Hospital Course Hospital Course She was thought to have acute and encephalopathy secondary to hepatic encephalopathy versus medication induced secondary to chronic use of morphine. But her ammonia levels were at 142 which trended down to 120 on discharge. Hence acute and encephalopathy likely secondary to medication induced. She was also found to have acute kidney injury with creatinine of 2.2 on admission which trended down to 1.8 with IV fluids. Medications reviewed with the patient and her and suggested to take morphine full dose in the morning and half in the evening to reduce the effect of long-term narcotic use. She is doing well, afebrile, hemodynamically stable and ready to be discharged home with follow-up with Dr. Singer in 1 week. Physical Exam Narrative: She is AAOx3, not in acute distress Chest cllear to ascultation. CVS-normal heart sounds no murmurs Abdomen soft nontender nondistended normal bowel sounds Extremities no edema noted bilateral lower extremity. Discharge Data Studies Completed and Pending Completed Studies During Hospitalization Category Date Time Status CT head wo con* [id number] Stat Cat Scan 08/04/23 12:43 Completed XR chest 1V portable [id number] Stat Exams 08/04/23 12:40 Completed Radiology Impressions Chest X-Ray 08/04/23 12:40 IMPRESSION: No acute findings. Head CT 08/04/23 12:43 IMPRESSION: 1. No evidence of intracranial hemorrhage or mass effect. 2. No acute intracranial findings. Laboratory Results WBC 6.98 10^3/uL (3.29-11.43) 08/04/23 13:14 RBC 4.37 10^6/uL (3.85-5.65) 08/04/23 13:14 Hgb 12.50 g/dL (11.27-16.99) 08/04/23 13:14 Hct 37.1 % (36-47) 08/04/23 13:14 MCV 84.9 fl (85-98) L 08/04/23 13:14 MCH 28.6 pg (27-33) 08/04/23 13:14 MCHC 33.7 g/dL (30-55) 08/04/23 13:14 RDW 14.8 % (12.1-15.1) 08/04/23 13:14 Plt Count 91 10^3/cmm (157-399) L 08/04/23 13:14 MPV 12.2 fL (7.4-10.4) H 08/04/23 13:14 Neut % (Auto) 80.9 % 08/04/23 13:14 Lymph % (Auto) 9.3 % 08/04/23 13:14 [place] % (Auto) 8.5 % 08/04/23 13:14 Eos % (Auto) 0.4 % 08/04/23 13:14 Baso % (Auto) 0.3 % 08/04/23 13:14 Neut # (Auto) 5.65 10^3/uL (1.8-7.7) 08/04/23 13:14 Lymph # (Auto) 0.7 10^3/uL (0.8-4.8) L 08/04/23 13:14 [place] # (Auto) 0.6 10^3/uL (0.2-0.9) 08/04/23 13:14 Eos # (Auto) 0.0 10^3/uL (0.0-0.8) 08/04/23 13:14 Baso # (Auto) 0.0 10^3/uL (0.0-0.1) 08/04/23 13:14 Nucleated RBC % (auto) 0 % 08/04/23 13:14 Nucleated RBCs # 0.0 /100WBC 08/04/23 13:14 PT 15.30 SECONDS (12.1-14.9) H 08/05/23 04:18 INR 1.17 (0.8-1.2) 08/05/23 04:18 APTT 25.5 SECONDS (23.9-36.7) 08/05/23 04:18 Sodium 132 mmol/L (136-145) L 08/05/23 04:18 Potassium 4.2 mmol/L (3.5-5.1) 08/05/23 04:18 Chloride 99 mmol/L (98-107) 08/05/23 04:18 Carbon Dioxide 21 mmol/L (22-29) L 08/05/23 04:18 Anion Gap 16.2 (5-19) 08/05/23 04:18 BUN 36 mg/dL (8-23) H 08/05/23 04:18 Creatinine 1.8 mg/dL (0.5-0.9) H 08/05/23 04:18 GFR Calculation 28.7 mL/min (90-130) L 08/05/23 04:18 Glucose 131 mg/dL (65-115) H 08/05/23 04:18 POC Glucose 105 mg/dL (70-110) 08/05/23 06:17 Calculated Osmolality 284 mOsm/kg (285-295) L 08/05/23 04:18 Calcium 8.5 mg/dL (8.5-10.5) 08/05/23 04:18 Phosphorus 3.3 mg/dL (2.5-4.5) 08/05/23 04:18 Magnesium 2.5 mg/dL (1.7-2.3) H 08/05/23 04:18 Total Bilirubin 1.2 mg/dL (0.15-1.2) 08/05/23 04:18 AST 55 U/L (0-32) H 08/05/23 04:18 ALT 37 U/L (0-33) H 08/05/23 04:18 Alkaline Phosphatase 245 U/L (35-105) H 08/05/23 04:18 Ammonia 122 umol/L (11-51) H 08/05/23 04:18 NT-Pro-B Natriuret Pep 232 pg/mL (0-125) H 08/05/23 04:18 Total Protein 7.0 g/dL (6.6-8.7) 08/05/23 04:18 Albumin 3.1 g/dL (3.5-5.2) L 08/05/23 04:18 Globulin 3.9 g/dL (1.3-4.6) 08/05/23 04:18 Lipase 61 U/L (13-60) H 08/05/23 04:18 TSH 1.79 uIU/mL (0.27-4.20) 08/04/23 13:14 Urine Color Yellow (Yellow) 08/04/23 16:11 Urine Appearance Clear (CLEAR) 08/04/23 16:11 Urine pH 5 (5-7) 08/04/23 16:11 Ur Specific [place] 1.005 (1.005-1.030) 08/04/23 16:11 Urine Protein Neg (Negative) 08/04/23 16:11 Urine Glucose (UA) 4+ (Normal) H 08/04/23 16:11 Urine Ketones Negative (Negative) 08/04/23 16:11 Urine Blood Neg (Negative) 08/04/23 16:11 Urine Nitrate Negative (Negative) 08/04/23 16:11 Urine Bilirubin Neg (Negative) 08/04/23 16:11 Urine Urobilinogen Norm mg/dL (Negative) 08/04/23 16:11 Ur Leukocyte Esterase Negative (Negative) 08/04/23 16:11 Vitals Last Vital Signs Temp 98.0 F 08/05/23 09:00 Pulse 65 08/05/23 09:00 Resp 17 08/05/23 09:00 BP 122/58 08/05/23 09:00 Pulse Ox 98 08/05/23 09:00 O2 Del Method Room Air 08/05/23 09:00 Discharge Plan Discharge Patient Disposition: Home Condition: Stable Prescriptions: Continued insulin glargine [Lantus Solostar U-100 Insulin] 100 unit/mL (3 mL) insulin pen 50 unit SUBCUT BID Qty: 30 4RF insulin lispro [Humalog KwikPen Insulin] 100 unit/mL insulin pen See Rx Instructions .ROUTE .COMPLEX Qty: 45 3RF Dose Instruction: INJECT using sliding scale THREE TIMES DAILY; max of 51 units DAILY Rx Instructions: INJECT using sliding scale THREE TIMES DAILY; max of 51 units DAILY spironolactone 50 mg tablet 50 mg PO DAILY Qty: 90 2RF pantoprazole 40 mg tablet,delayed release (DR/EC) 40 mg PO DAILY Qty: 90 1RF ondansetron HCl 4 mg tablet 4 mg PO Q8H PRN (Reason: nausea and vomiting) Qty: 90 3RF nitroglycerin 0.4 mg tablet, sublingual See Rx Instructions .ROUTE .COMPLEX Qty: 25 11RF Dose Instruction: DISSOLVE 1 TABLET UNDER TONGUE MAY REPEAT EVERY 5 MINUTES FOR A TOTAL OF 3 TABLETS NEEDED FOR CHEST PAIN Rx Instructions: DISSOLVE 1 TABLET UNDER TONGUE MAY REPEAT EVERY 5 MINUTES FOR A TOTAL OF 3 TABLETS NEEDED FOR CHEST PAIN [place]iance 10 mg tablet 10 mg PO QAM Qty: 30 1RF morphine 30 mg tablet extended release 30 mg PO Q12H PRN (Reason: Pain) 30 Days Qty: 60 0RF fluconazole 150 mg tablet 150 mg PO DAILY 5 Days Qty: 5 0RF irbesartan 75 mg tablet 75 mg PO DAILY Lasix 20 mg tablet 20 mg PO DAILY PRN (Reason: Edema) lactulose 10 gram/15 mL solution 45 g PO TID Rx Instructions: May titrate dose to 3-4 soft bowel movements/day carvedilol 3.125 mg tablet 3.125 mg PO BID naloxone 4 mg/actuation spray,non-aerosol See Rx Instructions .ROUTE .COMPLEX Rx Instructions: USE 1 SPRAY IN 1 NOSTRIL ALTERNATING NOSTRILS IF NO RESULTS IN 3 MINUTES. Xifaxan 550 mg tablet 550 mg PO BID No Action (DME) lancing device with lancets Kit See Rx Instructions .ROUTE .MEDSUPPLY Qty: 1 0RF Rx Instructions: As directed (DME) blood-glucose meter Kit See Rx Instructions .Route Qty: 1 11RF Rx Instructions: mauricio 14 with sensors and patches (DME) Blood Glucose Test Strip See Rx Instructions .ROUTE .MEDSUPPLY Qty: 100 6RF Rx Instructions: TEST UP TO 4 TIMES A DAY (DME) FreeStyle Mauricio 14 Day [place] Misc See Rx Instructions .Route Qty: 1 2RF Rx Instructions: As directed (DME) pen needle, diabetic [TechLITE Pen Needle] 31 gauge x 5/16 needle See Rx Instructions .ROUTE .COMPLEX Qty: 150 3RF Dose Instruction: USE DIRECTED Rx Instructions: USE DIRECTED (DME) FreeStyle Mauricio 14 Day Sensor Kit See Rx Instructions .ROUTE .COMPLEX Qty: 1 5RF Dose Instruction: USE directed Rx Instructions: USE directed (DME) lancets 33 gauge misc See Rx Instructions .ROUTE .MEDSUPPLY Qty: 100 12RF Rx Instructions: test 4 times daily Discharge Orders: Discharge Order (Routine); Ordered 08/05/23 Ordered By: Cortney Morrissey Referrals: Jovan Singer MD [Primary Care Provider] - 4-7 days Discharge Diet: Cardiac Discharge Activity: Increase activity as tolerated Patient Instructions: Altered Mental Status (ED), Opioid Safety Discharge Attestations Time Spent in Discharge Care*: less than 30 min Status at Discharge: Cognitive status at discharge: cognitively intact, Behavioral status at discharge: cooperative, Quality Metrics Clinical Quality Measures [ No reported AMI, CVA or VTE this stay] Coding Level of Care Code Acute Code for Chg Fwd Diagnoses Acute encephalopathy G93.40 Acute kidney injury N17.9 Chronic narcotic use F11.90 Other cirrhosis of liver K74.69 Hepatic cirrhosis type: other cirrhosis Diabetes mellitus E11.9 Essential hypertension I10 Chronic heart failure with preserved ejection fraction I50.32 Heart failure chronicity: chronic Coronary artery disease involving [place] coronary artery of [place] heart without angina pectoris I25.10 Coronary Disease-Associated Artery/Lesion type: [place] artery [place] vs. transplanted heart: [place] heart Associated angina: without angina Pacemaker Z95.0 Secondary esophageal varices without bleeding I85.10 Esophageal varices type: secondary Esophageal varices bleeding: without bleeding Neuropathy G62.9 Lower extremity edema R60.0 Yeast infection B37.9 Pressure injury of sacral region, stage 2 L89.152 Time Spent (min) 20
[2023-08-05 11:12] LABS: Glucose Point of Care 270 mg/dL (70-110)
[2023-08-05 11:45] VITALS: BP 122/58; PULSE 65; RESP 17; TEMP 36.7; O2SAT 98
== END 2023-08-05 11:46 | disposition home or self-care (01) ==
LOC: ER 14:24 → MEDSURG 16:37
PROVIDERS: Admitting Provider Hospitalist; Emergency Provider Emergency Medicine; PCP Family Medicine; Visit Provider Internal Medicine
DX: G93.40 Encephalopathy, unspecified (principal); N17.9 Acute kidney failure, unspecified; F11.90 Opioid use, unspecified, uncomplicated; K74.69 Other cirrhosis of liver; E11.9 Type 2 diabetes mellitus without complications; I11.0 Hypertensive heart disease with heart failure; I50.32 Chronic diastolic (congestive) heart failure; I25.10 Atherosclerotic heart disease of native coronary artery without angina pectoris; Z95.0 Presence of cardiac pacemaker; I85.10 Secondary esophageal varices without bleeding; G62.9 Polyneuropathy, unspecified; R60.0 Localized edema; B37.9 Candidiasis, unspecified; L89.152 Pressure ulcer of sacral region, stage 2; Z79.4 Long term (current) use of insulin; Z82.49 Family history of ischemic heart disease and other diseases of the circulatory system
CPT/HCPCS: 36415; 36416; 70450; 71045; 80053; 81003; 82140; 82962; 83690; 83735; 83880; 84100; 84443; 85025; 85610; 85730; 93005; 96372; 96374; 99285; G0378; J1815; J7030

== ENCOUNTER 2023-08-13 11:09 | Emergency (ER) | payer MEDICARE, MEDICAID, SELFPAY ==
[2023-08-13 11:11] VITALS: BP 167/76; PULSE 80; RESP 18; TEMP 36.9; O2SAT 100; BMI 32.3
--- NOTE | 2023-08-13 11:11 | XRR_ITS ---
PROCEDURE INFORMATION: Exam: XR Chest Exam date and time: 08/13/2023 12:06 PM Age: 58 years old Clinical indication: Other: AMS TECHNIQUE: Imaging protocol: Radiologic exam of the chest. Views: 1 view. COMPARISON: CR XR chest 1V portable [id number] 08/04/2023 12:56 PM FINDINGS: Tubes, catheters and devices: Median sternotomy suture wires. Multi lead pacemaker/defibrillator. Lungs: Mild infiltrate at the lateral left lung base. Pleural spaces: Unremarkable. No pleural effusion. No pneumothorax. Heart/Mediastinum: Unremarkable. No cardiomegaly. Bones/joints: Unremarkable. XR/XR chest 1V portable [id number] IMPRESSION: Mild left lower lobe infiltrate.
--- NOTE | 2023-08-13 11:22 | ED_ITS ---
HPI - Recheck/Abnormal Lab/Rx 2 General: Chief Complaint: Recheck/Abnormal Lab/Rx Stated Complaint: ams Time Seen by Provider: 08/13/23 11:10 Source: patient and EMS Mode of arrival: EMS Limitations: no limitations History of Present Illness: 58-year-old female with a history of cir rhosis has had an hepatic encephalopathy in the past per EMS felt like she had had a change mentation was concerned patient here states she feels completely fine she has no complaints she is answering all my questions completely appropriately is not somnolent EMS states that she has been the same for them as well. She states she has been taking her lactulose. Review of Systems 2 Const: Denies: fever(s), chills, body aches or change in appetite Eyes: Denies: blurry vision or eye discomfort ENMT: Denies: throat pain or dental pain Card: Denies: chest pain Resp: Denies: dyspnea GI: Denies: abdominal pain, nausea, vomiting or diarrhea : Denies: dysuria Musc: Denies: neck pain or back pain Skin/Breast: Denies: rash Neuro: Denies: headache(s) Psych: Denies: depression Naveen/Lymph: Denies: easy bruising All/Imm: Denies: urticaria PFSH ED 2 PFSH: Medical History Pressure injury of sacral region, stage 2 Chronic narcotic use extended release morphine for chronic pain Lower extremity edema Neuropathy Esophageal varices CASTANON (nonalcoholic steatohepatitis) Labial abscess 02/2023 s/p I&D Encephalopathy, hepatic Diabetic neuropathy Stage 3b chronic kidney disease (CKD) Cirrhosis Attributed to diabetes and chronic pain medication use her patient Thrombocytopenia (HFpEF) heart failure with preserved eje ction fraction Hepatomegaly Splenomegaly Carpal tunnel syndrome Migraine Sporadic pituitary adenoma History of [place] (myocardial infarction) (~2006) Essential hypertension Pacemaker (~2012) due to symptomatic bradycardia Atrial fibrillation History of atrial fibrillation postoperatively. Hyperlipidemia CAD (coronary artery disease) Diabetes mellitus Fe deficiency anemia Surgical History History of esophageal surgery History of permanent cardiac pacemaker placement History of esophagogastroduodenoscopy (EGD) 4-5 years Hx of colonoscopy 10 plus years Vulvar abscess (~05/01/15) I&D of left labia majora abscess; performed by [facility]. S/P arterial stent x 3; approximately in 2012, 2013 - [facility] S/P brain surgery (~2005) Removal of brain tumor- benign; in the pituitary gland S/P CABG x 2 in 2006 S/P section performed in 1990, 1992 S/P hysterectomy (~1992) converted from C/Section to NAMAN,bilateral salpingectomy, probable ovaries remain. Most likely performed by Dr. Roper. Family History Brother Stroke Diabetes Mother , 72 Diabetes Heart disease Hypertension Stroke Father , 68 Diabetes Heart disease Hypertension Stroke Grandmother Diabetes Maternal Other CAD (coronary artery disease) Hyperlipidemia Lung disease Denies family history of Colon cancer Ovarian cancer Clotting disorder Dementia Hypercholesteremia Psychiatric illness Chronic kidney disease (CKD) Breast cancer Anesthesia complication Bleeding disorder Cancer Uterine cancer Thyroid disease Social History (Updated 08/04/23 @ 15:23 by Leonor Chacko MD) Smoking and tobacco/nicotine status: former use of tobacco/nicotine Alcohol intake: never Substance/Drug Use: never Adopted: No service: No Current gender identity: Female Physical Exam 2 Const: COMMON NORMALS: no acute distress, patient oriented x3 and healthy appearing HENMT: COMMON NORMALS: normocephalic and atraumatic HEAD & SCALP: n ormocephalic and atraumatic Eye: COMMON NORMALS: Equal, round and reactive pupils present and EOMs intact bilaterally PUPIL: Yes Equal, round and reactive pupils present Neck/C-Spine: COMMON NORMALS: full ROM and supple Chest: COMMONS NORMALS: normal inspection of the chest and normal palpation of entire chest wall Resp: COMMON NORMALS: normal respiratory effort, No retractions, No use of accessory muscles and clear to auscultation bilaterally AUSCULTATION: clear to auscultation bilaterally Cardio: COMMON NORMALS: regular rate, regular rhythm and No murmurs present (Cardio) RATE: regular rate RHYTHM: regular rhythm GI: COMMON NORMALS: Normal to inspection, nondistended, normoactive bowel sounds present, Soft to palpation, non-tender and no masses PALPATION: Yes Soft to palpation Extremity: COMMON NORMALS: normal to inspection and full ROM Neuro: COMMON NORMALS: patient oriented x3, moves all extremities and no focal motor deficits Psych: COMMON NORMALS: mental status grossly normal, Normal thought process present and cooperative THOUGHT PROCESS: Normal thought process present Skin: COMMON NORMALS: no rashes or lesions noted and no wounds GENERAL SKIN EXAM: no rashes or lesions noted Course 2 Vital Signs: Vital signs: Vital Signs Temperature 98.4 F 08/13/23 11:11 Pulse Rate 61 08/13/23 11:51 Respiratory Rate 18 08/13/23 11:11 Blood Pressure 160/53 08/13/23 11:51 Pulse Oximetry 96 08/13/23 11:51 Oxygen Delivery Me thod Room Air 08/13/23 11:51 MDM - Recheck/Abnormal Lab/Rx Medical Decision Making Patient presented here with confusion at home she is been awake and alert here answering all my questions appropriately her ammonia level is improved from her baseline blood work otherwise shows no acute findings she stable for discharge she is follow-up with PCP return if worsening. Medical Records I reviewed the patient's medical records. Lab Data I reviewed the patient's lab results. 08/13/23 11:54 08/13/23 11:54 Radiology Impressions Chest X-Ray 08/13/23 11:11 IMPRESSION: Mild left lower lobe infiltrate. Laboratory Results WBC 7.91 10^3/uL (3.29-11.43) 08/13/23 11:54 RBC 4.43 10^6/uL (3.85-5.65) 08/13/23 11:54 Hgb 12.60 g/dL (11.27-16.99) 08/13/23 11:54 Hct 38.4 % (36-47) 08/13/23 11:54 MCV 86.7 fl (85-98) 08/13/23 11:54 MCH 28.4 pg (27-33) 08/13/23 11:54 MCHC 32.8 g/dL (30-55) 08/13/23 11:54 RDW 15.0 % (12.1-15.1) 08/13/23 11:54 Plt Count 139 10^3/cmm (157-399) L 08/13/23 11:54 MPV 11.3 fL (7.4-10.4) H 08/13/23 11:54 Neut % (Auto) 84.2 % 08/13/23 11:54 Lymph % (Auto) 8.0 % 08/13/23 11:54 [place] % (Auto) 6.2 % 08/13/23 11:54 Eos % (Auto) 0.6 % 08/13/23 11:54 Baso % (Auto) 0.4 % 08/13/23 11:54 Neut # (Auto) 6.66 10^3/uL (1.8-7.7) 08/13/23 11:54 Lymph # (Auto) 0.6 10^3/uL (0.8-4.8) L 08/13/23 11:54 [place] # (Auto) 0.5 10^3/uL (0.2-0.9) 08/13/23 11:54 Eos # (Auto) 0.1 10^3/uL (0.0-0.8) 08/13/23 11:54 Baso # (Auto) 0.0 10^3/uL (0.0-0.1) 08/13/23 11:54 Nucleated RBC % (auto) 0 % 08/13/23 11:54 Nucleated RBCs # 0.0 /100WBC 08/13/23 11:54 Sodium 138 mmol/L (136-145) 08/13/23 11:54 Potassium 5.3 mmol/L (3.5-5.1) H 08/13/23 11:54 Chloride 105 mmol/L (98-107) 08/13/23 11:54 Carbon Dioxide 22 mmol/L (22-29) 08/13/23 11:54 Anion Gap 16.3 (5-19) 08/13/23 11:54 BUN 33 mg/dL (8-23) H 08/13/23 11:54 Creatinine 1.5 mg/dL (0.5-0.9) H 08/13/23 11:54 GFR Calculation 35.4 mL/min (90-130) L 08/13/23 11:54 Glucose 341 mg/dL (65-115) H 08/13/23 11:54 POC Glucose 314 mg/dL (70-110) H 08/13/23 11:43 Calculated Osmolality 307 mOsm/kg (285-295) H 08/13/23 11:54 Calcium 9.5 mg/dL (8.5-10.5) 08/13/23 11:54 Total Bilirubin 1.3 mg/dL (0.15-1.2) H 08/13/23 11:54 AST 54 U/L (0-32) H 08/13/23 11:54 ALT 41 U/L (0-33) H 08/13/23 11:54 Alkaline Phosphatase 292 U/L (35-105) H 08/13/23 11:54 Ammonia 96 umol/L (11-51) H 08/13/23 11:54 Total Protein 8.6 g/dL (6.6-8.7) 08/13/23 11:54 Albumin 3.8 g/dL (3.5-5.2) 08/13/23 11:54 Globulin 4.8 g/dL (1.3-4.6) H 08/13/23 11:54 Urine Color Yellow (Yellow) 08/13/23 11:40 Urine Appearance Clear (CLEAR) 08/13/23 11:40 Urine pH 6 (5-7) 08/13/23 11:40 Ur Specific [place] 1.015 (1.005-1.030) 08/13/23 11:40 Urine Protein 1+ (Negative) H 08/13/23 11:40 Urine Glucose (UA) 4+ (Normal) H 08/13/23 11:40 Urine Ketones Negative (Negative) 08/13/23 11:40 Urine Blood 2+ (Negative) H 08/13/23 11:40 Urine Nitrate Negative (Negative) 08/13/23 11:40 Urine Bilirubin Neg (Negative) 08/13/23 11:40 Urine Urobilinogen Norm mg/dL (Negative) 08/13/23 11:40 Ur Leukocyte Esterase Negative (Negative) 08/13/23 11:40 Urine RBC 0-4 /hpf (0-2) H 08/13/23 11:40 Urine WBC Rare /hpf (0-5) 08/13/23 11:40 Ur Squamous Epith Cells 0-4 /hpf (0-5) H 08/13/23 11:40 Amorphous Sediment Not Reportable 08/13/23 11:40 Urine Bacteria 2+ /hpf (NONE) H 08/13/23 11:40 Urine Mucus None /hpf 08/13/23 11:40 Urine Yeast Trace /hpf 08/13/23 11:40 All radiology interpretation(s) finalized by discharge EKG Data EKG 1: I personally reviewed and interpreted this EKG as follows: EKG interpretation date: 08/13/23 EKG interpretation time: 11:17 Interpretation: paced hr [address] elevation qrs 100 qtc 438 Discharge Plan Discharge Patient Disposition: Home Clinical Impression: Cirrhosis Condition: Stable Prescriptions: No Action insulin glargine [Lantus Solostar U-100 Insulin] 100 unit/mL (3 mL) insulin pen 50 unit SUBCUT BID Qty: 30 4RF insulin lispro [Humalog KwikPen Insulin] 100 unit/mL insulin pen See Rx Instructions .ROUTE .COMPLEX Qty: 45 3RF Dose Instruction: INJECT using sliding scale THREE TIMES DAILY; max of 51 units DAILY Rx Instructions: INJECT using sliding scale THREE TIMES DAILY; max of 51 units DAILY spironolactone 50 mg tablet 50 mg PO DAILY Qty: 90 2RF pantoprazole 40 mg tablet,delayed release (DR/EC) 40 mg PO DAILY Qty: 90 1RF ondansetron HCl 4 mg tablet 4 mg PO Q8H PRN (Reason: nausea and vomiting) Qty: 90 3RF (DME) lancing device with lancets Kit See Rx Instructions .ROUTE .MEDSUPPLY Qty: 1 0RF Rx Instructions: As directed (DME) blood-glucose meter Kit See Rx Instructions .Route Qty: 1 11RF Rx Instructions: mauricio 14 with sensors and patches (DME) Blood Glucose Test Strip See Rx Instructions .ROUTE .MEDSUPPLY Qty: 100 6RF Rx Instructions: TEST UP TO 4 TIMES A DAY (DME) FreeStyle Mauricio 14 Day [place] Misc See Rx Instructions .Route Qty: 1 2RF Rx Instructions: As directed nitroglycerin 0.4 mg tablet, sublingual See Rx Instructions .ROUTE .COMPLEX Qty: 25 11RF Dose Instruction: DISSOLVE 1 TABLET UNDER TONGUE MAY REPEAT EVERY 5 MINUTES FOR A TOTAL OF 3 TABLETS NEEDED FOR CHEST PAIN Rx Instructions: DISSOLVE 1 TABLET UNDER TONGUE MAY REPEAT EVERY 5 MINUTES FOR A TOTAL OF 3 TABLETS NEEDED FOR CHEST PAIN (DME) lancets 33 gauge misc See Rx Instructions .ROUTE .MEDSUPPLY Qty: 100 12RF Rx Instructions: test 4 times daily Jardiance 10 mg tablet 10 mg PO QAM Qty: 30 1RF morphine 30 mg tablet extended release 30 mg PO Q12H PRN (Reason: Pain) 30 Days Qty: 60 0RF fluconazole 150 mg tablet 150 mg PO DAILY 5 Days Qty: 5 0RF (DME) FreeStyle Mauricio 14 Day Sensor Kit See Rx Instructions .ROUTE .COMPLEX Qty: 1 5RF Dose Instruction: USE directed Rx Instructions: USE directed (DME) pen needle, diabetic [TechLITE Pen Needle] 31 gauge x 5/16 needle See Rx Instructions .ROUTE .COMPLEX Qty: 150 3RF Dose Instruction: USE DIRECTED Rx Instructions: USE DIRECTED lactulose 10 gram/15 mL solution 45 g PO TID Qty: 946 0RF Rx Instructions: May titrate dose to 3-4 soft bowel movements/day irbesartan 75 mg tablet 75 mg PO DAILY Lasix 20 mg tablet 20 mg PO DAILY PRN (Reason: Edema) carvedilol 3.125 mg tablet 3.125 mg PO BID naloxone 4 mg/actuation spray,non-aerosol See Rx Instructions .ROUTE .COMPLEX Rx Instructions: USE 1 SPRAY IN 1 NOSTRIL ALTERNATING NOSTRILS IF NO RESULTS IN 3 MINUTES. Xifaxan 550 mg tablet 550 mg PO BID Discharge Orders: Discharge ED (Routine); Ordered 08/13/23 Ordered By: Vinay Pederson Referrals: Jovan Singer MD [Primary Care Provider] - Discharge Diet: Advance as tolerated Discharge Activity: Resume usual activity Patient Instructions: Cirrhosis of the Liver (ED) Coding Level of Care Code ED Holistic Nutritionist for Russ Baez
[2023-08-13 11:47] LABS: Glucose Point of Care 314 mg/dL (70-110)
[2023-08-13 11:51] VITALS: BP 160/53; PULSE 61; O2SAT 96
[2023-08-13 12:07] LABS: Basophils % 0.4 %; Eosinophils # 0.1 10^3/uL (0.0-0.8); Eosinophils % 0.6 %; Hematocrit 38.4 % (36-47); Lymphocytes # 0.6 10^3/uL (0.8-4.8); Mean Corpuscular HGB Conc 32.8 g/dL (30-55); Mean Corpuscular Hemoglobin 28.4 pg (27-33); Mean Corpuscular Volume 86.7 fl (85-98); Mean Platelet Volume 11.3 fL (7.4-10.4); Monocytes # 0.5 10^3/uL (0.2-0.9); Monocytes % 6.2 %; Neutrophils # 6.66 10^3/uL (1.8-7.7); Neutrophils % 84.2 %; Nucleated Red Blood Cells % 0 %; Platelet Count 139 10^3/cmm (157-399); Red Blood Count 4.43 10^6/uL (3.85-5.65); White Blood Count 7.91 10^3/uL (3.29-11.43)
[2023-08-13 12:22] LABS: Alanine Aminotransferase 41 U/L (0-33); Albumin Level 3.8 g/dL (3.5-5.2); Alkaline Phosphatase 292 U/L (35-105); Anion Gap 16.3 (5-19); Aspartate Amino Transferase 54 U/L (0-32); Blood Urea Nitrogen 33 mg/dL (8-23); Calcium 9.5 mg/dL (8.5-10.5); Carbon Dioxide 22 mmol/L (22-29); Chloride 105 mmol/L (98-107); Creatinine Clr Calc Pharmacy 45.2497; Globulin 4.8 g/dL (1.3-4.6); Glomerular Filtration Rate 35.4 mL/min (90-130); Glucose 341 mg/dL (65-115); Osmolality Calculated 307 mOsm/kg (285-295); Potassium 5.3 mmol/L (3.5-5.1); Sodium 138 mmol/L (136-145); Total Bilirubin 1.3 mg/dL (0.15-1.2); Total Protein 8.6 g/dL (6.6-8.7)
[2023-08-13 12:23] LABS: Ammonia 96 umol/L (11-51)
[2023-08-13 12:41] LABS: Add Urine Microscopic? YES; Bilirubin Urine Neg (Negative); Blood Urine 2+ (Negative); Glucose Urine UA 4+ (Normal); Ketones Urine Negative (Negative); Leukocyte Esterase Urine Negative (Negative); Nitrate Urine Negative (Negative); Protein Urine 1+ (Negative); Specific Gravity, Urine 1.015 (1.005-1.030); Urine Appearance Clear (CLEAR); Urine Color Yellow (Yellow); Urobilinogen Urine Norm (Negative); pH Urine 6 (5-7)
[2023-08-13 12:48] LABS: Bacteria Urine 2+ /hpf; RBC Urine 0-4 /hpf (0-2); Squamous Epithelial Cell Urine 0-4 /hpf (0-5); WBC Urine RARE /hpf (0-5)
[2023-08-13 12:49] LABS: Add Urine Culture? Yes
[2023-08-13 13:22] VITALS: BP 156/71; PULSE 61; O2SAT 97
--- NOTE | 2023-08-13 13:25 | ECG_ITS ---
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 Measurements Intervals [place] Rate: 74 P: 118 AL: 248 QRS: 19 QRSD: 100 T: 130 QT: 411 QTc: 456 Interpretive Statements ELECTRONIC ATRIAL PACEMAKER POSSIBLE ANTERIOR MYOCARDIAL INFARCTION , PROBABLY OLD [30 ms Q WAVE IN V3/V4, OR R < 0.2 mV IN V4] MODERATE T-WAVE ABNORMALITY, CONSIDER LATERAL ISCHEMIA [-0.1+ mV T-WAVE IN I/aVL/V5/V6] Compared to ECG 08/04/2023 12:51:35 Myocardial infarct finding now present T-wave abnormality now present Possible ischemia now present Ventricular-paced complex(es) or rhythm no longer present Electronically Signed On 08-14-2023 13:58:49 CDT by Frederick Fang M.D. [id number]
== END 2023-08-13 13:20 | disposition home or self-care (01) ==
PROVIDERS: Emergency Provider Emergency Medicine; PCP Family Medicine
DX: K74.60 Unspecified cirrhosis of liver (principal); Z79.4 Long term (current) use of insulin; Z87.891 Personal history of nicotine dependence; Z95.0 Presence of cardiac pacemaker; Z95.1 Presence of aortocoronary bypass graft; E11.22 Type 2 diabetes mellitus with diabetic chronic kidney disease; I13.0 Hypertensive heart and chronic kidney disease with heart failure and stage 1 through stage 4 chronic kidney disease, or unspecified chronic kidney disease; N18.32 Chronic kidney disease, stage 3b; I50.30 Unspecified diastolic (congestive) heart failure; I25.2 Old myocardial infarction; E78.5 Hyperlipidemia, unspecified; I25.10 Atherosclerotic heart disease of native coronary artery without angina pectoris
CPT/HCPCS: 36415; 36416; 71045; 80053; 81001; 82140; 82962; 85025; 87086; 93005; 99285

== ENCOUNTER 2023-09-10 14:21 | Emergency (ER) | payer MEDICARE, MEDICAID, SELFPAY ==
[2023-09-10 14:35] VITALS: BP 111/71; PULSE 87; RESP 15; TEMP 37; O2SAT 97
--- NOTE | 2023-09-10 14:42 | ED_ITS ---
HPI - Recheck/Abnormal Lab/Rx 2 General: Chief Complaint: Recheck/Abnormal Lab/Rx Stated Complaint: sent by pcp, abnormal lab results Time Seen by Provider: 09/10/23 14:42 Source: patient Mode of arrival: ambulatory History of Present Illness: 58-year-old female presents to the emerg ency room for repeat labs. Her primary care doctor had checked her potassium and it was elevated she was advised to present here to have it reevaluated and treated if appropriate. She denies any symptoms. Review of Systems 2 Const: Denies: fever(s) or chills Card: Denies: chest pain Resp: Denies: dyspnea GI: Denies: abdominal pain : Denies: dysuria, urinary frequency or urinary urgency Musc: Denies: neck pain or back pain Skin/Breast: Denies: rash PFSH ED 2 PFSH: Medical History Pressure injury of sacral region, stage 2 Chronic narcotic use extended release morphine for chronic pain Lower extremity edema Neuropathy Esophageal varices CASTANON (nonalcoholic steatohepatitis) Labial abscess 2015, 02/2023 s/p I&D Encephalopathy, hepatic Diabetic neuropathy Stage 3b chronic kidney disease (CKD) Cirrhosis Attributed to diabetes and chronic pain medication use her patient Thrombocytopenia (HFpEF) heart failure with preserved eje ction fraction Hepatomegaly Splenomegaly Carpal tunnel syndrome Migraine Sporadic pituitary adenoma History of [place] (myocardial infarction) (~2006) Essential hypertension Pacemaker (~2012) due to symptomatic bradycardia Atrial fibrillation History of atrial fibrillation postoperatively. Hyperlipidemia CAD (coronary artery disease) Diabetes mellitus Fe deficiency anemia Surgical History History of esophageal surgery History of permanent cardiac pacemaker placement History of esophagogastroduodenoscopy (EGD) 4-5 years Hx of colonoscopy 10 plus years Vulvar abscess (~05/01/15) I&D of left labia majora abscess; performed by [facility]. S/P arterial stent x 3; approximately in 2012, 2013 - [facility] S/P brain surgery (~2005) Removal of brain tumor- benign; in the pituitary gland S/P CABG x 2 in 2006 S/P section performed in 1990, 1992 S/P hysterectomy (~1992) converted from C/Section to NAMAN,bilateral salpingectomy, probable ovaries remain. Most likely performed by Dr. Roper. Family History Brother Stroke Diabetes Mother , 72 Diabetes Heart disease Hypertension Stroke Father , 68 Diabetes Heart disease Hypertension Stroke Grandmother Diabetes Maternal Other CAD (coronary artery disease) Hyperlipidemia Lung disease Denies family history of Colon cancer Ovarian cancer Clotting disorder Dementia Hypercholesteremia Psychiatric illness Chronic kidney disease (CKD) Breast cancer Anesthesia complication Bleeding disorder Cancer Uterine cancer Thyroid disease Social History Smoking and tobacco/nicotine status: former use of tobacco/nicotine Alcohol intake: never Substance/Drug Use: never Adopted: No service: No Current gender identity: Female Physical Exam 2 Const: GENERAL APPEARANCE: cooperative and comfortable O RIENTATION/CONSCIOUSNESS: Yes awake, Yes oriented to person, Yes oriented to place and Yes oriented to time HENMT: COMMON NORMALS: normocephalic, atraumatic and hearing grossly normal bilaterally HEAD & SCALP: normocephalic and atraumatic Resp: COMMON NORMALS: normal respiratory effort, No retractions, No use of accessory muscles and clear to auscultation bilaterally AUSCULTATION: clear to auscultation bilaterally Cardio: COMMON NORMALS: regular rate, regular rhythm and No murmurs present (Cardio) RATE: regular rate RHYTHM: regular rhythm Extremity: COMMON NORMALS: normal to inspection, capillary refill normal, no clubbing, cyanosis or edema, no calf tenderness and no pedal edema Neuro: SENSORIUM/ORIENTATION: Yes oriented to person, Yes oriented to place and Yes oriented to time Psych: ATTITUDE: Yes agitated and Yes hostile Skin: COMMON NORMALS: no rashes or lesions noted GENERAL SKIN EXAM: no rashes or lesions noted Course 2 Vital Signs: Vital signs: Vital Signs Temperature 98.6 F 09/10/23 14:35 Pulse Rate 61 09/10/23 15:10 Respiratory Rate 18 09/10/23 15:10 Blood Pressure 150/57 09/10/23 16:09 Pulse Oximetry 92 09/10/23 15:10 Oxygen Delivery Me thod Room Air 09/10/23 15:10 MDM - Recheck/Abnormal Lab/Rx Medical Decision Making Potassium elevated at 5.5 blood sugar also elevated. Creatinine at 1.6. Suspect etiology is her spironolactone. As well as irbesartan which could contribute to it. Additionally her hyperglycemia will also worsen it. Calcium chloride sodium bicarb and insulin were ordered to help alleviate her hyperkalemia. Patient became upset because she had not dissipated only having 1 needlestick and was angry feeling she had been lied to. She refuses to allow another IV. The nurse and I went back and talk to her we were able to reason with her and she was agreeable to the IV and expressed understanding as to why this needs to be done however shortly after that she decided she wished to leave she left A. She did not allow the the nursing staff to get the form out in time for her to sign before leaving and I was not able to give her any instructions. In previous discussion I had advised her that she would need to stop the spironolactone as that was likely what was the primary cause of her hyperkalemia. I had also instructed her that after we corrected her potassium here in the emergency room we would probably have her recheck a potassium 1 week after she stopped the spironolactone. Medical Records I reviewed the patient's medical records. Lab Data I reviewed the patient's lab results. 09/10/23 15:50 09/10/23 15:50 Laboratory Results WBC 5.50 10^3/uL (3.29-11.43) 09/10/23 15:50 RBC 4.07 10^6/uL (3.85-5.65) 09/10/23 15:50 Hgb 11.70 g/dL (11.27-16.99) 09/10/23 15:50 Hct 35.7 % (36-47) L 09/10/23 15:50 MCV 87.7 fl (85-98) 09/10/23 15:50 MCH 28.7 pg (27-33) 09/10/23 15:50 MCHC 32.8 g/dL (30-55) 09/10/23 15:50 RDW 15.0 % (12.1-15.1) 09/10/23 15:50 Plt Count 112 10^3/cmm (157-399) L 09/10/23 15:50 MPV 11.1 fL (7.4-10.4) H 09/10/23 15:50 Neut % (Auto) 68.2 % 09/10/23 15:50 Lymph % (Auto) 17.8 % 09/10/23 15:50 [place] % (Auto) 11.5 % 09/10/23 15:50 Eos % (Auto) 1.5 % 09/10/23 15:50 Baso % (Auto) 0.5 % 09/10/23 15:50 Neut # (Auto) 3.75 10^3/uL (1.8-7.7) 09/10/23 15:50 Lymph # (Auto) 1.0 10^3/uL (0.8-4.8) 09/10/23 15:50 [place] # (Auto) 0.6 10^3/uL (0.2-0.9) 09/10/23 15:50 Eos # (Auto) 0.1 10^3/uL (0.0-0.8) 09/10/23 15:50 Baso # (Auto) 0.0 10^3/uL (0.0-0.1) 09/10/23 15:50 Nucleated RBC % (auto) 0 % 09/10/23 15:50 Nucleated RBCs # 0.0 /100WBC 09/10/23 15:50 PT 14.50 SECONDS (12.1-14.9) 09/10/23 15:50 INR 1.09 (0.8-1.2) 09/10/23 15:50 Sodium 133 mmol/L (136-145) L 09/10/23 15:50 Potassium 5.5 mmol/L (3.5-5.1) H 09/10/23 15:50 Chloride 99 mmol/L (98-107) 09/10/23 15:50 Carbon Dioxide 21 mmol/L (22-29) L 09/10/23 15:50 Anion Gap 18.5 (5-19) 09/10/23 15:50 BUN 31 mg/dL (8-23) H 09/10/23 15:50 Creatinine 1.6 mg/dL (0.5-0.9) H 09/10/23 15:50 GFR Calculation 32.9 mL/min (90-130) L 09/10/23 15:50 Glucose 455 mg/dL (65-115) H 09/10/23 15:50 Calculated Osmolality 302 mOsm/kg (285-295) H 09/10/23 15:50 Calcium 9.1 mg/dL (8.5-10.5) 09/10/23 15:50 Total Bilirubin 1.3 mg/dL (0.15-1.2) H 09/10/23 15:50 AST 47 U/L (0-32) H 09/10/23 15:50 ALT 29 U/L (0-33) 09/10/23 15:50 Alkaline Phosphatase 318 U/L (35-105) H 09/10/23 15:50 Total Protein 8.4 g/dL (6.6-8.7) 09/10/23 15:50 Albumin 3.8 g/dL (3.5-5.2) 09/10/23 15:50 Globulin 4.6 g/dL (1.3-4.6) 09/10/23 15:50 Lipase 69 U/L (13-60) H 09/10/23 15:50 No radiology studies performed this visit Discharge Plan Discharge Patient Disposition: Left Against Medical Advice Clinical Impression: Hyperkalemia Condition: Stable Prescriptions: No Action insulin glargine [Lantus Solostar U-100 Insulin] 100 unit/mL (3 mL) insulin pen 50 unit SUBCUT BID Qty: 30 4RF insulin lispro [Humalog KwikPen Insulin] 100 unit/mL insulin pen See Rx Instructions .ROUTE .COMPLEX Qty: 45 3RF Dose Instruction: INJECT using sliding scale THREE TIMES DAILY; max of 51 units DAILY Rx Instructions: INJECT using sliding scale THREE TIMES DAILY; max of 51 units DAILY spironolactone 50 mg tablet 50 mg PO DAILY Qty: 90 2RF pantoprazole 40 mg tablet,delayed release (DR/EC) 40 mg PO DAILY Qty: 90 1RF ondansetron HCl 4 mg tablet 4 mg PO Q8H PRN (Reason: nausea and vomiting) Qty: 90 3RF fluconazole 150 mg tablet 150 mg PO DAILY 5 Days Qty: 5 0RF (DME) lancing device with lancets Kit See Rx Instructions .ROUTE .MEDSUPPLY Qty: 1 0RF Rx Instructions: As directed (DME) blood-glucose meter Kit See Rx Instructions .Route Qty: 1 11RF Rx Instructions: mauricio 14 with sensors and patches (DME) Blood Glucose Test Strip See Rx Instructions .ROUTE .MEDSUPPLY Qty: 100 6RF Rx Instructions: TEST UP TO 4 TIMES A DAY (DME) FreeStyle Mauricio 14 Day [place] Misc See Rx Instructions .Route Qty: 1 2RF Rx Instructions: As directed nitroglycerin 0.4 mg tablet, sublingual See Rx Instructions .ROUTE .COMPLEX Qty: 25 11RF Dose Instruction: DISSOLVE 1 TABLET UNDER TONGUE MAY REPEAT EVERY 5 MINUTES FOR A TOTAL OF 3 TABLETS NEEDED FOR CHEST PAIN Rx Instructions: DISSOLVE 1 TABLET UNDER TONGUE MAY REPEAT EVERY 5 MINUTES FOR A TOTAL OF 3 TABLETS NEEDED FOR CHEST PAIN (DME) lancets 33 gauge misc See Rx Instructions .ROUTE .MEDSUPPLY Qty: 100 12RF Rx Instructions: test 4 times daily Jardiance 10 mg tablet 10 mg PO QAM Qty: 30 1RF (DME) FreeStyle Mauricio 14 Day Sensor Kit See Rx Instructions .ROUTE .COMPLEX Qty: 1 5RF Dose Instruction: USE directed Rx Instructions: USE directed morphine 30 mg tablet extended release 30 mg PO Q12H PRN (Reason: Pain) 30 Days Qty: 60 0RF (DME) pen needle, diabetic [BD Ultra-Fine Short Pen Needle] 31 gauge x 5/16 needle See Rx Instructions .ROUTE .COMPLEX Qty: 100 3RF Dose Instruction: USE DIRECTED Rx Instructions: USE DIRECTED lactulose [Constulose] 10 gram/15 mL solution See Rx Instructions .ROUTE .COMPLEX Qty: 946 3RF Dose Instruction: take 30g (45ml) BY MOUTH TWICE DAILY MAY titrate DOSE TO 3 TO 4 soft bowel movements/day Rx Instructions: take 30g (45ml) BY MOUTH TWICE DAILY MAY titrate DOSE TO 3 TO 4 soft bowel movements/day irbesartan 75 mg tablet 75 mg PO DAILY Lasix 20 mg tablet 20 mg PO DAILY PRN (Reason: Edema) carvedilol 3.125 mg tablet 3.125 mg PO BID naloxone 4 mg/actuation spray,non-aerosol See Rx Instructions .ROUTE .COMPLEX Rx Instructions: USE 1 SPRAY IN 1 NOSTRIL ALTERNATING NOSTRILS IF NO RESULTS IN 3 MINUTES. 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
--- NOTE | 2023-09-10 14:46 | ECG_ITS ---
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 Measurements Intervals [place] Rate: 61 P: 43 NV: 318 QRS: 55 QRSD: 102 T: 70 QT: 435 QTc: 441 Interpretive Statements ELECTRONIC ATRIAL PACEMAKER MINIMAL ST DEPRESSION [0.025+ mV ST DEPRESSION] ABNORMAL RHYTHM ECG Compared to ECG 08/13/2023 11:17:27 ST (T wave) deviation now present Myocardial infarct finding no longer present T-wave abnormality no longer present Possible ischemia no longer present Electronically Signed On 09-10-2023 22:23:40 CDT by Praneeth Joseph M.D. [id number]
[2023-09-10 15:10] VITALS: BP 128/69; PULSE 61; RESP 18; O2SAT 92
[2023-09-10 15:58] LABS: Basophils % 0.5 %; Eosinophils # 0.1 10^3/uL (0.0-0.8); Eosinophils % 1.5 %; Hematocrit 35.7 % (36-47); Lymphocytes % 17.8 %; Mean Corpuscular HGB Conc 32.8 g/dL (30-55); Mean Corpuscular Hemoglobin 28.7 pg (27-33); Mean Corpuscular Volume 87.7 fl (85-98); Mean Platelet Volume 11.1 fL (7.4-10.4); Monocytes # 0.6 10^3/uL (0.2-0.9); Monocytes % 11.5 %; Neutrophils # 3.75 10^3/uL (1.8-7.7); Neutrophils % 68.2 %; Nucleated Red Blood Cells % 0 %; Platelet Count 112 10^3/cmm (157-399); Red Blood Count 4.07 10^6/uL (3.85-5.65)
[2023-09-10 16:09] VITALS: BP 150/57
[2023-09-10 16:17] LABS: INR 1.09 (0.8-1.2)
[2023-09-10 16:20] LABS: Alanine Aminotransferase 29 U/L (0-33); Albumin Level 3.8 g/dL (3.5-5.2); Alkaline Phosphatase 318 U/L (35-105); Anion Gap 18.5 (5-19); Aspartate Amino Transferase 47 U/L (0-32); Blood Urea Nitrogen 31 mg/dL (8-23); Calcium 9.1 mg/dL (8.5-10.5); Carbon Dioxide 21 mmol/L (22-29); Chloride 99 mmol/L (98-107); Globulin 4.6 g/dL (1.3-4.6); Glomerular Filtration Rate 32.9 mL/min (90-130); Glucose 455 mg/dL (65-115); Lipase 69 U/L (13-60); Osmolality Calculated 302 mOsm/kg (285-295); Potassium 5.5 mmol/L (3.5-5.1); Sodium 133 mmol/L (136-145); Total Bilirubin 1.3 mg/dL (0.15-1.2); Total Protein 8.4 g/dL (6.6-8.7)
--- NOTE | 2023-09-10 16:35 | PC.NURSE ---
pt is angry, pt states she thought she would only be stuck with needle for labs 1 time, nurse educated pt on IV and labs. pt reports iv should have been done with lab, nurse educated pt that nurse was busy at the time. pt refusing IV and wants to leave AMA, doctor notified.
== END 2023-09-10 17:11 | disposition left against medical advice (07) ==
PROVIDERS: Emergency Medicine; Emergency Provider Family Medicine; PCP Family Medicine
DX: E87.5 Hyperkalemia (principal); Z53.29 Procedure and treatment not carried out because of patient's decision for other reasons; Z79.4 Long term (current) use of insulin; Z87.891 Personal history of nicotine dependence; Z95.0 Presence of cardiac pacemaker; Z95.1 Presence of aortocoronary bypass graft; E11.22 Type 2 diabetes mellitus with diabetic chronic kidney disease; I13.0 Hypertensive heart and chronic kidney disease with heart failure and stage 1 through stage 4 chronic kidney disease, or unspecified chronic kidney disease; N18.32 Chronic kidney disease, stage 3b; I50.30 Unspecified diastolic (congestive) heart failure; I25.2 Old myocardial infarction; E78.5 Hyperlipidemia, unspecified; I25.10 Atherosclerotic heart disease of native coronary artery without angina pectoris
CPT/HCPCS: 36415; 80053; 83690; 85025; 85610; 93005; 99284

== ENCOUNTER → 2023-12-17 10:50 | Outpatient (BNVA) | payer MEDICARE, MEDICAID, SELFPAY | PROVIDERS: PCP Family Medicine; Visit Provider Surgery | DX: D50.0 Iron deficiency anemia secondary to blood loss (chronic) (principal); I85.00 Esophageal varices without bleeding; R13.10 Dysphagia, unspecified; Z12.11 Encounter for screening for malignant neoplasm of colon | CPT/HCPCS: 99214 ==

== ENCOUNTER 2023-12-23 10:59 | Day surgery (SDC) | payer MEDICARE, MEDICAID, SELFPAY ==
[2023-12-23 11:20] VITALS: BP 142/71; PULSE 76; RESP 17; TEMP 36.4; O2SAT 95; BMI 34.7
[2023-12-23] MEDS: sodium chloride 0.9% 1,000 ML 30 ML IV (11:34)
[2023-12-23 11:36] LABS: Glucose Point of Care 346 mg/dL (70-110)
--- NOTE | 2023-12-23 12:13 | ANES.PREANE2 ---
Pre-Anesthetic Assessment Height/Weight: Height 5 ft 6 in Weight 215 lb Temp Pulse Resp BP Pulse Ox O2 Del Method 97.5 F L 76 17 142/71 95 Room Air 12/23/23 11:20 12/23/23 11:20 12/23/23 11:20 12/23/23 11:20 12/23/23 11:20 12/23/23 11:20 Preop Diagnosis: Screening colonoscopy Operation Date: 12/23/23 12:00 Proposed Procedures p EGD 39622, 80493, G0121, R13.1, I85, D50, Z12.11(Not Applicable) - Leonardo Cook DO s Colonoscopy(Not Applicable) - Leonardo Cook DO Was Beta Nelson taken within 24 hours: N/A Was Clonidine taken within 24 hours: N/A Last intake: Intake Last Liquid Date 12/22/23 Last Liquid Time 17:00 Last Solid Date 12/21/23 Last Solid Time 18:00 Social No alcohol and No tobacco Exam alert, oriented x 3, clear to auscultation bilaterally and regular rate & rhythm Airway Submandibular: within normal limits Cervical ROM: within normal limits Mallampati: Class III Dentition: full Anesthetic Plan ASA status: 3 Anesthesia: MAC Other: No prior issues with anesthesia Completed bowel prep Type I diabetic, did not take her insulin. Blood sugar 346. Plan to give her 20 units of insulin prior to procedure Significant CAD with multiple stents. On carvedilol. Taken today. Pacemaker present GERD on Protonix EKG showing atrial pacemaker Plan for MAC anesthetic Medications/Allergies Home Medications Medication Instructions Recorded Confirmed Last Taken Type lancing device with lancets kit #1 ea 03/14/20 12/22/23 Unknown Rx blood-glucose meter #1 ea 11/05/20 12/22/23 Unknown Rx blood sugar diagnostic (Blood #100 ea 07/23/21 12/22/23 Unknown Rx Glucose Test strips) flash glucose scanning reader #1 ea 08/04/22 12/22/23 Unknown Rx (FreeStyle Mauricio 14 Day [place]) insulin lispro 100 unit/mL See Rx Instructions .Route 05/18/23 12/23/23 12/22/23 Rx subcutaneous pen (Humalog KwikPen .COMPLEX #45 mL (U-100) Insulin) lancets 33 gauge #100 ea 06/04/23 12/22/23 Unknown Rx spironolactone 50 mg tablet 50 mg PO DAILY #90 tabs 06/15/23 12/23/23 12/22/23 Rx carvedilol 3.125 mg tablet 3.125 mg PO BID 08/04/23 12/23/23 12/23/23 History furosemide 20 mg tablet (Lasix) 20 mg PO DAILY PRN Edema 08/04/23 12/23/23 12/22/23 History irbesartan 75 mg tablet 75 mg PO DAILY 08/04/23 12/23/23 12/22/23 History naloxone 4 mg/actuation nasal spray See Rx Instructions .Route .COMPLEX 08/04/23 12/23/23 Unknown History pen needle, diabetic 31 gauge x #100 ea 09/07/23 12/22/23 Unknown Rx 5/16 (BD Ultra-Fine Short Pen Needle) ondansetron HCl 4 mg tablet 4 mg PO Q8H PRN nausea and 09/23/23 12/23/23 Unknown Rx vomiting #90 tabs flash glucose sensor (FreeStyle #1 kit 11/13/23 12/22/23 Unknown Rx Mauricio 14 Day Sensor kit) insulin glargine 100 unit/mL (3 50 unit (0.5 mL) SUBCUT BID #30 mL 11/16/23 12/23/23 12/22/23 Rx mL) subcutaneous pen (Lantus Solostar U-100 Insulin) morphine 30 mg tablet,extended 30 mg PO Q12H PRN Pain 30 days #60 11/20/23 12/23/23 12/23/23 Rx release tabs pantoprazole 40 mg tablet,delayed 40 mg PO DAILY #90 tabs 11/26/23 12/23/23 12/22/23 Rx release lactulose 10 gram/15 mL oral See Rx Instructions .Route 11/30/23 12/23/23 12/22/23 Rx solution (Constulose) .COMPLEX #946 mL ondansetron 8 mg disintegrating 8 mg PO Q8H PRN nausea and 12/17/23 12/23/23 12/22/23 Rx tablet vomiting #10 tabs empagliflozin 10 mg tablet 10 mg PO DAILY 12/22/23 12/23/23 12/22/23 History (Jardiance) nitroglycerin 0.4 mg sublingual See Rx Instructions .Route 12/22/23 12/23/23 Unknown History tablet .COMPLEX PRN Chest Pain rifaximin 550 mg tablet (Xifaxan) 550 mg PO BID 12/22/23 12/23/23 12/22/23 History Allergies Allergy/AdvReac Type Severity Reaction Status Date / Time insulin degludec Allergy ALGY-Difficulty Verified 12/17/23 11:04 [From Tresiba FlexTouch Breathing U-100] levofloxacin Allergy SWELLING Verified 12/17/23 11:04 promethazine Allergy confusion Verified 12/17/23 11:04 duloxetine AdvReac ADR-Swelling Verified 12/17/23 11:04 of the Eye Current Medications Generic Name Dose Route Start Last Admin Trade Name Freq PRN Reason Stop Dose Admin Sodium Chloride 1,000 mls @ 30 mls/hr 12/23/23 11:15 12/23/23 11:34 Sodium Chloride 0.9% IV 12/24/23 11:14 30 mls/hr .Q24H NIKOLAS Administration PFSH Anesthesia Medical History Atrial fibrillation History of atrial fibrillation postoperatively. CAD (coronary artery disease) Diabetes mellitus Pressure injury of sacral region, stage 2 Chronic narcotic use extended release morphine for chronic pain Lower extremity edema Neuropathy Esophageal varices CASTANON (nonalcoholic steatohepatitis) Labial abscess 2015, 02/2023 s/p I&D Encephalopathy, hepatic Diabetic neuropathy Stage 3b chronic kidney disease (CKD) Cirrhosis Attributed to diabetes and chronic pain medication use her patient Thrombocytopenia (HFpEF) heart failure with preserved ejection fraction Hepatomegaly Splenomegaly Carpal tunnel syndrome Migraine Sporadic pituitary adenoma History of KS (myocardial infarction) (~2006) Essential hypertension Pacemaker (~2012) due to symptomatic bradycardia Hyperlipidemia Fe deficiency anemia Surgical History History of esophageal surgery History of permanent cardiac pacemaker placement History of esophagogastroduodenoscopy (EGD) 4-5 years Hx of colonoscopy 10 plus years Vulvar abscess (~05/01/15) I&D of left labia majora abscess; performed by [facility]. S/P arterial stent x 3; approximately in 2012, 2013 - [facility] S/P brain surgery (~2005) Removal of brain tumor- benign; in the pituitary gland S/P CABG x 2 in 2006 S/P section performed in 1990, 1992 S/P hysterectomy (~1992) converted from C/Section to NAMAN,bilateral salpingectomy, probable ovaries remain. Most likely performed by Dr. Roper. Family History Brother Stroke Diabetes Mother , 72 Diabetes Heart disease Hypertension Stroke Father , 68 Diabetes Heart disease Hypertension Stroke Grandmother Diabetes Maternal Other CAD (coronary artery disease) Hyperlipidemia Lung disease Denies family history of Colon cancer Ovarian cancer Clotting disorder Dementia Hypercholesteremia Psychiatric illness Chronic kidney disease (CKD) Breast cancer Anesthesia complication Bleeding disorder Cancer Uterine cancer Thyroid disease Social History Smoking and tobacco/nicotine status: former use of tobacco/nicotine Alcohol intake: never Substance/Drug Use: never Adopted: No service: No Current gender identity: Female Data Anesthesia Cardiac Studies: Echocardiogram 03/06/22 Echocardiogram Ultrasound 07/18/20 Sestamibi Stress Test (Cardiology) 03/26/22
--- NOTE | 2023-12-23 12:25 | W.PM.OPSUD ---
Surgery/Procedure H&P Update DATE OF PROCEDURE: December 23, 2023 DATE H&P PERFORMED: 12/17/23 H&P UPDATE INFORMATION: I have reviewed H&P completed within last 30 days, I have examined patient prior to procedure and No changes to prior documentation PREOP DIAGNOSIS: Screening colonoscopy PLANNED PROCEDURE: Operation Date: 12/23/23 12:00 Proposed Procedures p EGD 96686, 62977, G0121, R13.1, I85, D50, Z12.11(Not Applicable) - DO sujata Orr Colonoscopy(Not Applicable) - Leonardo Cook DO
[2023-12-23] MEDS: insulin regular-human 20 UNIT in SYRINGE 1 EACH IVP (12:26)
[2023-12-23] MEDS: EPINEPHrine 1 mg/mL INJ XX (12:58)
[2023-12-23 13:17] VITALS: BP 137/63; PULSE 62; RESP 18; TEMP 36.3; O2SAT 94
[2023-12-23 13:22] VITALS: BP 143/65; PULSE 71; RESP 18; O2SAT 94
[2023-12-23 13:32] VITALS: BP 144/59; PULSE 61; RESP 18; O2SAT 94
--- NOTE | 2023-12-23 13:57 | ANE.PACU2 ---
Inpatient post-anesthesia follow up: Airway intact: Yes Vital signs: Temperature 97.3 F Pulse Rate 61 Respiratory Rate 18 Blood Pressure 144/59 Pulse Oximetry 94 Oxygen Delivery Me thod Room Air Oxygen Flow Rate Fraction of Inspir ed Oxygen Hydration adequate: Yes Nausea and vomiting: No Pain level: 1 Mental status: Baseline
== END 2023-12-23 13:57 | disposition home or self-care (01) ==
PROVIDERS: PCP Family Medicine; Visit Provider Surgery
PROC: 0DJ08ZZ Inspection of Upper Intestinal Tract, Via Natural or Artificial Opening Endoscopic (ICD-10-PCS; CPT 43235; principal; 2023-12-23 12:00)
PROC: 0DJD8ZZ Inspection of Lower Intestinal Tract, Via Natural or Artificial Opening Endoscopic (ICD-10-PCS; CPT 45378; 2023-12-23 12:00)
DX: Z12.11 Encounter for screening for malignant neoplasm of colon (principal); I48.91 Unspecified atrial fibrillation; I25.10 Atherosclerotic heart disease of native coronary artery without angina pectoris; E11.22 Type 2 diabetes mellitus with diabetic chronic kidney disease; N18.30 Chronic kidney disease, stage 3 unspecified; I50.30 Unspecified diastolic (congestive) heart failure; I25.2 Old myocardial infarction; Z95.1 Presence of aortocoronary bypass graft; Z87.891 Personal history of nicotine dependence; D50.0 Iron deficiency anemia secondary to blood loss (chronic); I85.00 Esophageal varices without bleeding; R13.10 Dysphagia, unspecified
CPT/HCPCS: 36416; 43239; 43255; 82962; 88305; 88342; G0121; J0171; J1815; J2704; J7030

== ENCOUNTER 2024-03-04 12:33 | Inpatient (IN) | payer MEDICARE, MEDICAID, SELFPAY ==
[2024-03-04] VITALS (29 sets, daily range): BP systolic 85–165; BP diastolic 42–83; PULSE 60–140; RESP 11–19; TEMP 36.3–36.9; O2SAT 91–99; BMI 34.5; BMI 36.3
--- NOTE | 2024-03-04 12:57 | USCV_ITS ---
WhitesideJacquelin Age: 58 Gender: F : 1965 Exam Date: 03/04/2024 13:18 Ordering Phys: Gene Peguero Technologist: Exam Location: [facility] [place]_ Indication: lt leg pain PROCEDURES: Venous duplex imaging was performed in only the left lower extremity. The following venous structures were evaluated: common femoral vein, profunda vein, proximal portion of the greater saphenous vein, superficial femoral vein, and the popliteal vein. In addition, the posterior tibial and peroneal trunk were evaluated. FINDINGS: Evidence of acute occlusive deep vein thrombosis in the left peroneal vein with abnormal flow dynamics. No additional DVT. Occluded left femoral artery. CONCLUSIONS Acute occlusive left peroneal vein. Occluded left femoral vein, recommend arterieal US left lower extremity. Dr. Denise Ac DO (Electronically Signed) Final Date: 04 March 2024 14:18 S
--- NOTE | 2024-03-04 12:58 | W.ED.EXTPRO ---
Documented by User: KARIME Irving 03/04/24 14:12 HPI - Extremity Problem General: Chief complaint: Extremity Problem,Nontraumatic Stated complaint: left leg pain Time Seen by Provider: 03/04/24 12:39 Source: patient and family Mode of arrival: wheelchair Limitations: no limitations History of Present Illness: Patient is a 58-year-old female with past medical history of coronary artery disease as well as diabetic neuropathy who presents to the emergency department with atraumatic left lower extremity pain beginning today. Patient denies any recent injury, states pain primarily to the calf area and there were some skin color changes and swelling that she noted upon waking today. She does not report taking a blood thinner. States she is having some sensory changes to her left foot and ankle region. Has been unable to walk due to the symptoms. Denies any fever or other symptoms. Does report sedentary lifestyle, no recent long flights or car rides. No history of blood clots. MD Complaint: extremity pain and extremity swelling Onset (ago): hour(s) Pain Consistency: constant Location: left and lower extremity Relieving factors: nothing Exacerbating factors: range of motion, weight bearing and palpation Associated symptoms: Deny chest pain, fever(s) or rash Related Data Home Medications Medication Instructions Recorded Confirmed carvedilol 3.125 mg tablet 3.125 mg PO BID 08/04/23 03/04/24 furosemide 20 mg tablet (Lasix) 20 mg PO DAILY PRN Edema 08/04/23 03/04/24 irbesartan 75 mg tablet 75 mg PO DAILY 08/04/23 03/04/24 naloxone 4 mg/actuation nasal spray See Rx Instructions .Route .COMPLEX 08/04/23 03/04/24 nitroglycerin 0.4 mg sublingual See Rx Instructions .Route 12/22/23 03/04/24 tablet .COMPLEX PRN Chest Pain rifaximin 550 mg tablet (Xifaxan) 550 mg PO BID 12/22/23 03/04/24 empagliflozin 10 mg tablet 10 mg PO QAM 03/04/24 03/04/24 (Jardiance) Previous Rx's Medication Instructions Recorded lancing device with lancets kit #1 ea 03/14/20 blood-glucose meter #1 ea 11/05/20 blood sugar diagnostic (Blood #100 ea 07/23/21 Glucose Test strips) flash glucose scanning reader #1 ea 08/04/22 (FreeStyle Mauricio 14 Day [place]) lancets 33 gauge #100 ea 06/04/23 spironolactone 50 mg tablet 50 mg PO DAILY #90 tabs 06/15/23 insulin glargine 100 unit/mL (3 50 unit (0.5 mL) SUBCUT BID #30 mL 11/16/23 mL) subcutaneous pen (Lantus Solostar U-100 Insulin) ondansetron 8 mg disintegrating 8 mg PO Q8H PRN nausea and 12/17/23 tablet vomiting #10 tabs insulin lispro 100 unit/mL See Rx Instructions .Route 12/24/23 subcutaneous pen (Humalog KwikPen .COMPLEX #45 mL (U-100) Insulin) flash glucose sensor (FreeStyle #1 kit 01/17/24 Mauricio 14 Day Sensor kit) lactulose 10 gram/15 mL oral See Rx Instructions .Route 02/15/24 solution (Constulose) .COMPLEX #946 mL pantoprazole 40 mg tablet,delayed 40 mg PO DAILY #90 tabs 02/15/24 release pen needle, diabetic 31 gauge x #100 ea 02/25/24 5/16 (BD Ultra-Fine Short Pen Needle) morphine 30 mg tablet,extended 30 mg PO Q12H PRN Pain 30 days #60 02/26/24 release tabs Allergies Allergy/AdvReac Type Severity Reaction Status Date / Time insulin degludec Allergy ALGY-Difficulty Verified 12/31/23 15:15 [From Tresiba FlexTouch Breathing U-100] levofloxacin Allergy SWELLING Verified 12/31/23 15:15 promethazine Allergy confusion Verified 12/31/23 15:15 duloxetine AdvReac ADR-Swelling Verified 12/31/23 15:15 of the Eye Review of Systems General: Reports: 10 or more systems reviewed and unremarkable except in HPI and below Const: Denies: fever(s) or chills Card: Denies: chest pain Resp: Denies: dyspnea or productive cough GI: Denies: abdominal pain, nausea, vomiting or diarrhea : Denies: flank pain Musc: Reports: extremity pain and extremity swelling; Denies: neck pain, back pain, joint pain, joint swelling, joint redness, joint warmth, limited range of motion or muscle weakness Skin/Breast: Reports: changes in skin color; Denies: rash Neuro: Denies: headache(s), numbness in extremities or weakness in extremities PFSH ED PFSH: Medical History Atrial fibrillation History of atrial fibrillation postoperatively. CAD (coronary artery disease) Diabetes mellitus Pressure injury of sacral region, stage 2 Chronic narcotic use extended release morphine for chronic pain Lower extremity edema Neuropathy Esophageal varices CASTANON (nonalcoholic steatohepatitis) Labial abscess 2015, 02/2023 s/p I&D Encephalopathy, hepatic Diabetic neuropathy Stage 3b chronic kidney disease (CKD) Cirrhosis Attributed to diabetes and chronic pain medication use her patient Thrombocytopenia (HFpEF) heart failure with preserved ejection fraction Hepatomegaly Splenomegaly Carpal tunnel syndrome Migraine Sporadic pituitary adenoma History of IN (myocardial infarction) (~2006) Essential hypertension Pacemaker (~2012) due to symptomatic bradycardia Hyperlipidemia Fe deficiency anemia Surgical History History of esophageal surgery History of permanent cardiac pacemaker placement History of esophagogastroduodenoscopy (EGD) 4-5 years Hx of colonoscopy 10 plus years Vulvar abscess (~05/01/15) I&D of left labia majora abscess; performed by [facility]. S/P arterial stent x 3; approximately in 2012, 2013 - [facility] S/P brain surgery (~2005) Removal of brain tumor- benign; in the pituitary gland S/P CABG x 2 in 2006 S/P section performed in 1990, 1992 S/P hysterectomy (~1992) converted from C/Section to NAMAN,bilateral salpingectomy, probable ovaries remain. Most likely performed by Dr. Roper. Family History Brother Stroke Diabetes Mother , 72 Diabetes Heart disease Hypertension Stroke Father , 68 Diabetes Heart disease Hypertension Stroke Grandmother Diabetes Maternal Other CAD (coronary artery disease) Hyperlipidemia Lung disease Denies family history of Colon cancer Ovarian cancer Clotting disorder Dementia Hypercholesteremia Psychiatric illness Chronic kidney disease (CKD) Breast cancer Anesthesia complication Bleeding disorder Cancer Uterine cancer Thyroid disease Social History Smoking and tobacco/nicotine status: former use of tobacco/nicotine Alcohol intake: never Substance/Drug Use: never Adopted: No service: No Current gender identity: Female Physical Exam Const: COMMON NORMALS: no acute distress, patient oriented x3, no limitations, healthy appearing, alert and well nourished HENMT: COMMON NORMALS: normocephalic and atraumatic HEAD & SCALP: normocephalic and atraumatic Neck/C-Spine: COMMON NORMALS: full ROM, supple and no meningeal signs Resp: COMMON NORMALS: normal respiratory effort, No use of accessory muscles and clear to auscultation bilaterally AUSCULTATION: clear to auscultation bilaterally Cardio: COMMON NORMALS: regular rate and regular rhythm RATE: regular rate RHYTHM: regular rhythm Extremity: COMMON NORMALS: capillary refill normal and no joint enlargement NARRATIVE EXTREMITY EXAM: Questionable mottling of left calf/villalba region. Tender to palpation to the left calf. Negative Homans' sign. Dorsalis pedis pulse palpable, faint. Distal sensory changes to the left foot. No obvious edema to the left lower extremity. Neuro: COMMON NORMALS: patient oriented x3, moves all extremities and no focal motor deficits SENSORIUM/ORIENTATION: Yes alert MENINGEAL SIGNS: Yes no meningeal signs Skin: COMMON NORMALS: no rashes or lesions noted GENERAL SKIN EXAM: no rashes or lesions noted Course Vital Signs: Vital signs: Vital Signs Temperature 97.4 F L 03/04/24 12:41 Pulse Rate 64 03/04/24 14:00 Respiratory Rate 16 03/04/24 14:18 Blood Pressure 121/70 03/04/24 14:00 Pulse Oximetry 94 03/04/24 14:00 Oxygen Delivery Me thod Room Air 03/04/24 12:41 MDM - Extremity (Nontraumatic) Medical Decision Making Patient presented with atraumatic left lower extremity pain and distal sensory changes. On my initial presentation there was mild mottling of the skin noted, did not appreciate any skin changes. However upon recheck following ultrasound, mottling had increased and leg became significantly cool to touch. Care of patient transferred off to supervising ED physician Dr. Pederson at this time. Lab Data 03/04/24 14:10 03/04/24 14:10 Radiology Impressions Duplex Scan Lower Extremity Artery 03/04/24 13:34 IMPRESSION: Extensive arterial occlusion. ADDENDUM: 03/04/24 4300 THIS REPORT CONTAINS FINDINGS THAT MAY BE CRITICAL TO PATIENT CARE. The findings were verbally communicated via telephone conference with Dr. Pederson at 2:16 PM ROCK LATHER on 03/04/2024. The findings were acknowledged and understood. Laboratory Results WBC 11.80 10^3/uL (3.29-11.43) H 03/04/24 14:10 RBC 3.95 10^6/uL (3.85-5.65) 03/04/24 14:10 Hgb 10.80 g/dL (11.27-16.99) L 03/04/24 14:10 Hct 35.1 % (36-47) L 03/04/24 14:10 MCV 88.9 fl (85-98) 03/04/24 14:10 MCH 27.3 pg (27-33) 03/04/24 14:10 MCHC 30.8 g/dL (30-55) 03/04/24 14:10 RDW 17.4 % (12.1-15.1) H 03/04/24 14:10 Plt Count 169 10^3/cmm (157-399) 03/04/24 14:10 MPV 12.4 fL (7.4-10.4) H 03/04/24 14:10 Neut % (Auto) 88.0 % 03/04/24 14:10 Lymph % (Auto) 5.3 % 03/04/24 14:10 [place] % (Auto) 5.6 % 03/04/24 14:10 Eos % (Auto) 0.2 % 03/04/24 14:10 Baso % (Auto) 0.4 % 03/04/24 14:10 Neut # (Auto) 10.39 10^3/uL (1.8-7.7) H 03/04/24 14:10 Lymph # (Auto) 0.6 10^3/uL (0.8-4.8) L 03/04/24 14:10 [place] # (Auto) 0.7 10^3/uL (0.2-0.9) 03/04/24 14:10 Eos # (Auto) 0.0 10^3/uL (0.0-0.8) 03/04/24 14:10 Baso # (Auto) 0.1 10^3/uL (0.0-0.1) 03/04/24 14:10 Nucleated RBC % (auto) 0 % 03/04/24 14:10 Nucleated RBCs # 0.0 /100WBC 03/04/24 14:10 All radiology interpretation(s) finalized by discharge Discharge Plan Discharge Patient Disposition: Admitted As Inpatient Clinical Impression: Ischemic leg Condition: Stable Coding Level of Care Code ED Coremaker Apprentice for Chg Fwd Documented by User: Vinay Pederson MD 03/04/24 14:24 HPI - Extremity Problem General: Chief complaint: Extremity Problem,Nontraumatic Stated complaint: left leg pain Time Seen by Provider: 03/04/24 12:39 Related Data Home Medications Medication Instructions Recorded Confirmed carvedilol 3.125 mg tablet 3.125 mg PO BID 08/04/23 03/04/24 furosemide 20 mg tablet (Lasix) 20 mg PO DAILY PRN Edema 08/04/23 03/04/24 irbesartan 75 mg tablet 75 mg PO DAILY 08/04/23 03/04/24 naloxone 4 mg/actuation nasal spray See Rx Instructions .Route .COMPLEX 08/04/23 03/04/24 nitroglycerin 0.4 mg sublingual See Rx Instructions .Route 12/22/23 03/04/24 tablet .COMPLEX PRN Chest Pain rifaximin 550 mg tablet (Xifaxan) 550 mg PO BID 12/22/23 03/04/24 empagliflozin 10 mg tablet 10 mg PO QAM 03/04/24 03/04/24 (Jardiance) Previous Rx's Medication Instructions Recorded lancing device with lancets kit #1 ea 03/14/20 blood-glucose meter #1 ea 11/05/20 blood sugar diagnostic (Blood #100 ea 07/23/21 Glucose Test strips) flash glucose scanning reader #1 ea 08/04/22 (FreeStyle Mauricio 14 Day [place]) lancets 33 gauge #100 ea 06/04/23 spironolactone 50 mg tablet 50 mg PO DAILY #90 tabs 06/15/23 insulin glargine 100 unit/mL (3 50 unit (0.5 mL) SUBCUT BID #30 mL 11/16/23 mL) subcutaneous pen (Lantus Solostar U-100 Insulin) ondansetron 8 mg disintegrating 8 mg PO Q8H PRN nausea and 12/17/23 tablet vomiting #10 tabs insulin lispro 100 unit/mL See Rx Instructions .Route 12/24/23 subcutaneous pen (Humalog KwikPen .COMPLEX #45 mL (U-100) Insulin) flash glucose sensor (FreeStyle #1 kit 01/17/24 Mauricio 14 Day Sensor kit) lactulose 10 gram/15 mL oral See Rx Instructions .Route 02/15/24 solution (Constulose) .COMPLEX #946 mL pantoprazole 40 mg tablet,delayed 40 mg PO DAILY #90 tabs 02/15/24 release pen needle, diabetic 31 gauge x #100 ea 02/25/24 5/16 (BD Ultra-Fine Short Pen Needle) morphine 30 mg tablet,extended 30 mg PO Q12H PRN Pain 30 days #60 02/26/24 release tabs Allergies Allergy/AdvReac Type Severity Reaction Status Date / Time insulin degludec Allergy ALGY-Difficulty Verified 12/31/23 15:15 [From Tresiba FlexTouch Breathing U-100] levofloxacin Allergy SWELLING Verified 12/31/23 15:15 promethazine Allergy confusion Verified 12/31/23 15:15 duloxetine AdvReac ADR-Swelling Verified 12/31/23 15:15 of the Eye [facility] ED [facility]: Medical History Atrial fibrillation History of atrial fibrillation postoperatively. CAD (coronary artery disease) Diabetes mellitus Pressure injury of sacral region, stage 2 Chronic narcotic use extended release morphine for chronic pain Lower extremity edema Neuropathy Esophageal varices CASTANON (nonalcoholic steatohepatitis) Labial abscess 2015, 02/2023 s/p I&D Encephalopathy, hepatic Diabetic neuropathy Stage 3b chronic kidney disease (CKD) Cirrhosis Attributed to diabetes and chronic pain medication use her patient Thrombocytopenia (HFpEF) heart failure with preserved ejection fraction Hepatomegaly Splenomegaly Carpal tunnel syndrome Migraine Sporadic pituitary adenoma History of [place] (myocardial infarction) (~2006) Essential hypertension Pacemaker (~2012) due to symptomatic bradycardia Hyperlipidemia Fe deficiency anemia Surgical History History of esophageal surgery History of permanent cardiac pacemaker placement History of esophagogastroduodenoscopy (EGD) 4-5 years Hx of colonoscopy 10 plus years Vulvar abscess (~05/01/15) I&D of left labia majora abscess; performed by [facility]. S/P arterial stent x 3; approximately in 2012, 2013 - [facility] S/P brain surgery (~2005) Removal of brain tumor- benign; in the pituitary gland S/P CABG x 2 in 2006 S/P section performed in 1990, 1992 S/P hysterectomy (~1992) converted from C/Section to NAMAN,bilateral salpingectomy, probable ovaries remain. Most likely performed by Dr. Roper. Family History Brother Stroke Diabetes Mother , 72 Diabetes Heart disease Hypertension Stroke Father , 68 Diabetes Heart disease Hypertension Stroke Grandmother Diabetes Maternal Other CAD (coronary artery disease) Hyperlipidemia Lung disease Denies family history of Colon cancer Ovarian cancer Clotting disorder Dementia Hypercholesteremia Psychiatric illness Chronic kidney disease (CKD) Breast cancer Anesthesia complication Bleeding disorder Cancer Uterine cancer Thyroid disease Social History Smoking and tobacco/nicotine status: former use of tobacco/nicotine Alcohol intake: never Substance/Drug Use: never Adopted: No service: No Current gender identity: Female Course Vital Signs: Vital signs: Vital Signs Temperature 97.4 F L 03/04/24 12:41 Pulse Rate 64 03/04/24 14:00 Respiratory Rate 16 03/04/24 14:18 Blood Pressure 121/70 03/04/24 14:00 Pulse Oximetry 94 03/04/24 14:00 Oxygen Delivery Me thod Room Air 03/04/24 12:41 MDM - Extremity (Nontraumatic) Medical Decision Making Patient presented with atraumatic left lower extremity pain and distal sensory changes. On my initial presentation there was mild mottling of the skin noted, did not appreciate any skin changes. However upon recheck following ultrasound, mottling had increased and leg became significantly cool to touch. Care of patient transferred off to supervising ED physician Dr. Pederson at this time. Patient presents here with left leg pain patient was originally seen by midlevel I took over case patient had worsening pain on exam and her she did have cold extremity from the knee down with some slight mottling from the knee down that is worsened while she has been here. I spoke to cardiology who is came and seen patient is taking patient to the [facility] for acute ischemic limb did give her heparin here. Lab Data 03/04/24 14:10 03/04/24 14:10 Radiology Impressions Duplex Scan Lower Extremity Artery 03/04/24 13:34 IMPRESSION: Extensive arterial occlusion. ADDENDUM: 03/04/24 2558 THIS REPORT CONTAINS FINDINGS THAT MAY BE CRITICAL TO PATIENT CARE. The findings were verbally communicated via telephone conference with Dr. Pederson at 2:16 PM ROCK LATHER on 03/04/2024. The findings were acknowledged and understood. Laboratory Results WBC 11.80 10^3/uL (3.29-11.43) H 03/04/24 14:10 RBC 3.95 10^6/uL (3.85-5.65) 03/04/24 14:10 Hgb 10.80 g/dL (11.27-16.99) L 03/04/24 14:10 Hct 35.1 % (36-47) L 03/04/24 14:10 MCV 88.9 fl (85-98) 03/04/24 14:10 MCH 27.3 pg (27-33) 03/04/24 14:10 MCHC 30.8 g/dL (30-55) 03/04/24 14:10 RDW 17.4 % (12.1-15.1) H 03/04/24 14:10 Plt Count 169 10^3/cmm (157-399) 03/04/24 14:10 MPV 12.4 fL (7.4-10.4) H 03/04/24 14:10 Neut % (Auto) 88.0 % 03/04/24 14:10 Lymph % (Auto) 5.3 % 03/04/24 14:10 Weston % (Auto) 5.6 % 03/04/24 14:10 Eos % (Auto) 0.2 % 03/04/24 14:10 Baso % (Auto) 0.4 % 03/04/24 14:10 Neut # (Auto) 10.39 10^3/uL (1.8-7.7) H 03/04/24 14:10 Lymph # (Auto) 0.6 10^3/uL (0.8-4.8) L 03/04/24 14:10 Weston # (Auto) 0.7 10^3/uL (0.2-0.9) 03/04/24 14:10 Eos # (Auto) 0.0 10^3/uL (0.0-0.8) 03/04/24 14:10 Baso # (Auto) 0.1 10^3/uL (0.0-0.1) 03/04/24 14:10 Nucleated RBC % (auto) 0 % 03/04/24 14:10 Nucleated RBCs # 0.0 /100WBC 03/04/24 14:10 Critical Care Time Critical Care Time: Critical Care Time: Yes Total Critical Care Time: 40 Attestation: The high probability of a clinically significant, sudden or life threatening deterioration of the patient's vasc system(s) required my full and direct attention, intervention and personal management. The critical care time is as shown. This time is in addition to time spent performing any reported procedures but includes the following: [x] Data and vital sign review and interpretation [x] Patient assessment, examination and intervention [x] Documentation [x] Medication orders and management Discharge Plan Discharge Patient Disposition: Admitted As Inpatient Clinical Impression: Ischemic leg Condition: Stable Coding Level of Care Code ED Coremaker Apprentice for Russ Baez
--- NOTE | 2024-03-04 13:34 | USR_ITS ---
PROCEDURE INFORMATION: Exam: US Duplex Left Lower Extremity Arteries Or Arterial Bypass Grafts Exam date and time: 03/04/2024 1:38 PM Age: 58 years old Clinical indication: Pain; Leg, lower; Left; Additional info: Cold lt foot TECHNIQUE: Imaging protocol: Left Real-time duplex scan of the arteries or arterial bypass grafts of the left lower extremity with 2-D morrison scale, color Doppler flow and spectral waveform analysis. Images documented and saved. COMPARISON: US soft tissue/extremity 19453 10/09/2017 3:29 PM FINDINGS: There is arterial occlusion from the left common femoral artery inferiorly. US/[place] [id number] IMPRESSION: Extensive arterial occlusion.
[2024-03-04] MEDS: morphine 4 mg/mL SDV 1 mL IVP (13:49)
[2024-03-04] MEDS: ondansetron 2 mg/ML SDV 2 mL 4 MG IVP (13:49)
[2024-03-04] MEDS: heparin 5,000 unit/mL INJ 1 mL IVP (13:51)
[2024-03-04] MEDS: heparin drip 25,000 UNIT/500 ML PREMIX 27.18 UNIT IV (13:55)
--- NOTE | 2024-03-04 14:05 | W.ED.EXTPRO ---
Documented by User: Vinay Pederson MD 03/04/24 14:23 HPI - Extremity Problem General: Chief complaint: Extremity Problem,Nontraumatic Stated complaint: left leg pain Time Seen by Provider: 03/04/24 12:39 Related Data Home Medications Medication Instructions Recorded Confirmed carvedilol 3.125 mg tablet 3.125 mg PO BID 08/04/23 03/04/24 furosemide 20 mg tablet (Lasix) 20 mg PO DAILY PRN Edema 08/04/23 03/04/24 irbesartan 75 mg tablet 75 mg PO DAILY 08/04/23 03/04/24 naloxone 4 mg/actuation nasal spray See Rx Instructions .Route .COMPLEX 08/04/23 03/04/24 nitroglycerin 0.4 mg sublingual See Rx Instructions .Route 12/22/23 03/04/24 tablet .COMPLEX PRN Chest Pain rifaximin 550 mg tablet (Xifaxan) 550 mg PO BID 12/22/23 03/04/24 empagliflozin 10 mg tablet 10 mg PO QAM 03/04/24 03/04/24 (Jardiance) Previous Rx's Medication Instructions Recorded lancing device with lancets kit #1 ea 03/14/20 blood-glucose meter #1 ea 11/05/20 blood sugar diagnostic (Blood #100 ea 07/23/21 Glucose Test strips) flash glucose scanning reader #1 ea 08/04/22 (FreeStyle Mauricio 14 Day [place]) lancets 33 gauge #100 ea 06/04/23 spironolactone 50 mg tablet 50 mg PO DAILY #90 tabs 06/15/23 insulin glargine 100 unit/mL (3 50 unit (0.5 mL) SUBCUT BID #30 mL 11/16/23 mL) subcutaneous pen (Lantus Solostar U-100 Insulin) ondansetron 8 mg disintegrating 8 mg PO Q8H PRN nausea and 12/17/23 tablet vomiting #10 tabs insulin lispro 100 unit/mL See Rx Instructions .Route 12/24/23 subcutaneous pen (Humalog KwikPen .COMPLEX #45 mL (U-100) Insulin) flash glucose sensor (FreeStyle #1 kit 01/17/24 Mauricio 14 Day Sensor kit) lactulose 10 gram/15 mL oral See Rx Instructions .Route 02/15/24 solution (Constulose) .COMPLEX #946 mL pantoprazole 40 mg tablet,delayed 40 mg PO DAILY #90 tabs 02/15/24 release pen needle, diabetic 31 gauge x #100 ea 02/25/2407/08 (BD Ultra-Fine Short Pen Needle) morphine 30 mg tablet,extended 30 mg PO Q12H PRN Pain 30 days #60 02/26/24 release tabs Allergies Allergy/AdvReac Type Severity Reaction Status Date / Time insulin degludec Allergy ALGY-Difficulty Verified 12/31/23 15:15 [From Tresiba FlexTouch Breathing U-100] levofloxacin Allergy SWELLING Verified 12/31/23 15:15 promethazine Allergy confusion Verified 12/31/23 15:15 duloxetine AdvReac ADR-Swelling Verified 12/31/23 15:15 [facility] PFSH: Medical History Atrial fibrillation History of atrial fibrillation postoperatively. CAD (coronary artery disease) Diabetes mellitus Pressure injury of sacral region, stage 2 Chronic narcotic use extended release morphine for chronic pain Lower extremity edema Neuropathy Esophageal varices CASTANON (nonalcoholic steatohepatitis) Labial abscess 2015, 02/2023 s/p I&D Encephalopathy, hepatic Diabetic neuropathy Stage 3b chronic kidney disease (CKD) Cirrhosis Attributed to diabetes and chronic pain medication use her patient Thrombocytopenia (HFpEF) heart failure with preserved ejection fraction Hepatomegaly Splenomegaly Carpal tunnel syndrome Migraine Sporadic pituitary adenoma History of CA (myocardial infarction) (~2006) Essential hypertension Pacemaker (~2012) due to symptomatic bradycardia Hyperlipidemia Fe deficiency anemia Surgical History History of esophageal surgery History of permanent cardiac pacemaker placement History of esophagogastroduodenoscopy (EGD) 4-5 years Hx of colonoscopy 10 plus years Vulvar abscess (~05/01/15) I&D of left labia majora abscess; performed by [facility]. S/P arterial stent x 3; approximately in 2012, 2013 - [facility] S/P brain surgery (~2005) Removal of brain tumor- benign; in the pituitary gland S/P CABG x 2 in 2006 S/P section performed in 1990, 1992 S/P hysterectomy (~1992) converted from C/Section to NAMAN,bilateral salpingectomy, probable ovaries remain. Most likely performed by Dr. Roper. Family History Brother Stroke Diabetes Mother , 72 Diabetes Heart disease Hypertension Stroke Father , 68 Diabetes Heart disease Hypertension Stroke Grandmother Diabetes Maternal Other CAD (coronary artery disease) Hyperlipidemia Lung disease Denies family history of Colon cancer Ovarian cancer Clotting disorder Dementia Hypercholesteremia Psychiatric illness Chronic kidney disease (CKD) Breast cancer Anesthesia complication Bleeding disorder Cancer Uterine cancer Thyroid disease Social History Smoking and tobacco/nicotine status: former use of tobacco/nicotine Alcohol intake: never Substance/Drug Use: never Adopted: No service: No Current gender identity: Female Course Vital Signs: Vital signs: Vital Signs Temperature 97.4 F L 03/04/24 12:41 Pulse Rate 64 03/04/24 14:00 Respiratory Rate 16 03/04/24 14:00 Blood Pressure 121/70 03/04/24 14:00 Pulse Oximetry 94 03/04/24 14:00 Oxygen Delivery Me thod Room Air 03/04/24 12:41 MDM - Extremity (Nontraumatic) Medical Decision Making Patient presents here with left leg pain patient was originally seen by midlevel I took over case patient had worsening pain on exam and her she did have cold extremity from the knee down with some slight mottling from the knee down that is worsened while she has been here. I spoke to cardiology who is came and seen patient is taking patient to the [facility] for acute ischemic limb did give her heparin here. Medical Records I reviewed the patient's medical records. Lab Data I reviewed the patient's lab results. 03/04/24 14:10 03/04/24 14:10 Radiology Impressions Duplex Scan Lower Extremity Artery 03/04/24 13:34 IMPRESSION: Extensive arterial occlusion. ADDENDUM: 03/04/24 6604 THIS REPORT CONTAINS FINDINGS THAT MAY BE CRITICAL TO PATIENT CARE. The findings were verbally communicated via telephone conference with Dr. Pederson at 2:16 PM BUSINESS ACCOUNT LEADER on 03/04/2024. The findings were acknowledged and understood. Laboratory Results WBC 11.80 10^3/uL (3.29-11.43) H 03/04/24 14:10 RBC 3.95 10^6/uL (3.85-5.65) 03/04/24 14:10 Hgb 10.80 g/dL (11.27-16.99) L 03/04/24 14:10 Hct 35.1 % (36-47) L 03/04/24 14:10 MCV 88.9 fl (85-98) 03/04/24 14:10 MCH 27.3 pg (27-33) 03/04/24 14:10 MCHC 30.8 g/dL (30-55) 03/04/24 14:10 RDW 17.4 % (12.1-15.1) H 03/04/24 14:10 Plt Count 169 10^3/cmm (157-399) 03/04/24 14:10 MPV 12.4 fL (7.4-10.4) H 03/04/24 14:10 Neut % (Auto) 88.0 % 03/04/24 14:10 Lymph % (Auto) 5.3 % 03/04/24 14:10 [place] % (Auto) 5.6 % 03/04/24 14:10 Eos % (Auto) 0.2 % 03/04/24 14:10 Baso % (Auto) 0.4 % 03/04/24 14:10 Neut # (Auto) 10.39 10^3/uL (1.8-7.7) H 03/04/24 14:10 Lymph # (Auto) 0.6 10^3/uL (0.8-4.8) L 03/04/24 14:10 [place] # (Auto) 0.7 10^3/uL (0.2-0.9) 03/04/24 14:10 Eos # (Auto) 0.0 10^3/uL (0.0-0.8) 03/04/24 14:10 Baso # (Auto) 0.1 10^3/uL (0.0-0.1) 03/04/24 14:10 Nucleated RBC % (auto) 0 % 03/04/24 14:10 Nucleated RBCs # 0.0 /100WBC 03/04/24 14:10 All radiology interpretation(s) finalized by discharge Discharge Plan Discharge Patient Disposition: Admitted As Inpatient Clinical Impression: Ischemic leg Condition: Stable Coding Level of Care Code ED Configuration Management Consultant for Chg Fwd Documented by User: Kailee Chambers RN HPI - Extremity Problem General: Chief complaint: Extremity Problem,Nontraumatic Stated complaint: left leg pain Time Seen by Provider: 03/04/24 12:39 Source: patient and family Mode of arrival: wheelchair Limitations: no limitations History of Present Illness: Pain Consistency: constant Location: left and lower extremity Relieving factors: nothing Exacerbating factors: range of motion, weight bearing and palpation Related Data Home Medications Medication Instructions Recorded Confirmed carvedilol 3.125 mg tablet 3.125 mg PO BID 08/04/23 03/04/24 furosemide 20 mg tablet (Lasix) 20 mg PO DAILY PRN Edema 08/04/23 03/04/24 irbesartan 75 mg tablet 75 mg PO DAILY 08/04/23 03/04/24 naloxone 4 mg/actuation nasal spray See Rx Instructions .Route .COMPLEX 08/04/23 03/04/24 nitroglycerin 0.4 mg sublingual See Rx Instructions .Route 12/22/23 03/04/24 tablet .COMPLEX PRN Chest Pain rifaximin 550 mg tablet (Xifaxan) 550 mg PO BID 12/22/23 03/04/24 empagliflozin 10 mg tablet 10 mg PO QAM 03/04/24 03/04/24 (Jardiance) Previous Rx's Medication Instructions Recorded lancing device with lancets kit #1 ea 03/14/20 blood-glucose meter #1 ea 11/05/20 blood sugar diagnostic (Blood #100 ea 07/23/21 Glucose Test strips) flash glucose scanning reader #1 ea 08/04/22 (FreeStyle Mauricio 14 Day [place]) lancets 33 gauge #100 ea 06/04/23 spironolactone 50 mg tablet 50 mg PO DAILY #90 tabs 06/15/23 insulin glargine 100 unit/mL (3 50 unit (0.5 mL) SUBCUT BID #30 mL 11/16/23 mL) subcutaneous pen (Lantus Solostar U-100 Insulin) ondansetron 8 mg disintegrating 8 mg PO Q8H PRN nausea and 12/17/23 tablet vomiting #10 tabs insulin lispro 100 unit/mL See Rx Instructions .Route 12/24/23 subcutaneous pen (Humalog KwikPen .COMPLEX #45 mL (U-100) Insulin) flash glucose sensor (FreeStyle #1 kit 01/17/24 Mauricio 14 Day Sensor kit) lactulose 10 gram/15 mL oral See Rx Instructions .Route 02/15/24 solution (Constulose) .COMPLEX #946 mL pantoprazole 40 mg tablet,delayed 40 mg PO DAILY #90 tabs 02/15/24 release pen needle, diabetic 31 gauge x #100 ea 02/25/24 5/16 (BD Ultra-Fine Short Pen Needle) morphine 30 mg tablet,extended 30 mg PO Q12H PRN Pain 30 days #60 02/26/24 release tabs Allergies Allergy/AdvReac Type Severity Reaction Status Date / Time insulin degludec Allergy ALGY-Difficulty Verified 12/31/23 15:15 [From Tresiba FlexTouch Breathing U-100] levofloxacin Allergy SWELLING Verified 12/31/23 15:15 promethazine Allergy confusion Verified 12/31/23 15:15 duloxetine AdvReac ADR-Swelling Verified 12/31/23 15:15 [facility]: Medical History Atrial fibrillation History of atrial fibrillation postoperatively. CAD (coronary artery disease) Diabetes mellitus Pressure injury of sacral region, stage 2 Chronic narcotic use extended release morphine for chronic pain Lower extremity edema Neuropathy Esophageal varices CASTANON (nonalcoholic steatohepatitis) Labial abscess 2015, 02/2023 s/p I&D Encephalopathy, hepatic Diabetic neuropathy Stage 3b chronic kidney disease (CKD) Cirrhosis Attributed to diabetes and chronic pain medication use her patient Thrombocytopenia (HFpEF) heart failure with preserved ejection fraction Hepatomegaly Splenomegaly Carpal tunnel syndrome Migraine Sporadic pituitary adenoma History of CA (myocardial infarction) (~2006) Essential hypertension Pacemaker (~2012) due to symptomatic bradycardia Hyperlipidemia Fe deficiency anemia Surgical History History of esophageal surgery History of permanent cardiac pacemaker placement History of esophagogastroduodenoscopy (EGD) 4-5 years Hx of colonoscopy 10 plus years Vulvar abscess (~05/01/15) I&D of left labia majora abscess; performed by [facility]. S/P arterial stent x 3; approximately in 2012, 2013 - [facility] S/P brain surgery (~2005) Removal of brain tumor- benign; in the pituitary gland S/P CABG x 2 in 2006 S/P section performed in 1990, 1992 S/P hysterectomy (~1992) converted from C/Section to NAMAN,bilateral salpingectomy, probable ovaries remain. Most likely performed by Dr. Roper. Family History Brother Stroke Diabetes Mother , 72 Diabetes Heart disease Hypertension Stroke Father , 68 Diabetes Heart disease Hypertension Stroke Grandmother Diabetes Maternal Other CAD (coronary artery disease) Hyperlipidemia Lung disease Denies family history of Colon cancer Ovarian cancer Clotting disorder Dementia Hypercholesteremia Psychiatric illness Chronic kidney disease (CKD) Breast cancer Anesthesia complication Bleeding disorder Cancer Uterine cancer Thyroid disease Social History Smoking and tobacco/nicotine status: former use of tobacco/nicotine Alcohol intake: never Substance/Drug Use: never Adopted: No service: No Current gender identity: Female Course Vital Signs: Vital signs: Vital Signs Temperature 97.4 F L 03/04/24 12:41 Pulse Rate 64 03/04/24 14:00 Respiratory Rate 16 03/04/24 14:00 Blood Pressure 121/70 03/04/24 14:00 Pulse Oximetry 94 03/04/24 14:00 Oxygen Delivery Me thod Room Air 03/04/24 12:41 MDM - Extremity (Nontraumatic) Lab Data 03/04/24 14:10 03/04/24 14:10 Radiology Impressions Duplex Scan Lower Extremity Artery 03/04/24 13:34 IMPRESSION: Extensive arterial occlusion. ADDENDUM: 03/04/24 0721 THIS REPORT CONTAINS FINDINGS THAT MAY BE CRITICAL TO PATIENT CARE. The findings were verbally communicated via telephone conference with Dr. Pederson at 2:16 PM BUSINESS ACCOUNT LEADER on 03/04/2024. The findings were acknowledged and understood. Laboratory Results WBC 11.80 10^3/uL (3.29-11.43) H 03/04/24 14:10 RBC 3.95 10^6/uL (3.85-5.65) 03/04/24 14:10 Hgb 10.80 g/dL (11.27-16.99) L 03/04/24 14:10 Hct 35.1 % (36-47) L 03/04/24 14:10 MCV 88.9 fl (85-98) 03/04/24 14:10 MCH 27.3 pg (27-33) 03/04/24 14:10 MCHC 30.8 g/dL (30-55) 03/04/24 14:10 RDW 17.4 % (12.1-15.1) H 03/04/24 14:10 Plt Count 169 10^3/cmm (157-399) 03/04/24 14:10 MPV 12.4 fL (7.4-10.4) H 03/04/24 14:10 Neut % (Auto) 88.0 % 03/04/24 14:10 Lymph % (Auto) 5.3 % 03/04/24 14:10 [place] % (Auto) 5.6 % 03/04/24 14:10 Eos % (Auto) 0.2 % 03/04/24 14:10 Baso % (Auto) 0.4 % 03/04/24 14:10 Neut # (Auto) 10.39 10^3/uL (1.8-7.7) H 03/04/24 14:10 Lymph # (Auto) 0.6 10^3/uL (0.8-4.8) L 03/04/24 14:10 [place] # (Auto) 0.7 10^3/uL (0.2-0.9) 03/04/24 14:10 Eos # (Auto) 0.0 10^3/uL (0.0-0.8) 03/04/24 14:10 Baso # (Auto) 0.1 10^3/uL (0.0-0.1) 03/04/24 14:10 Nucleated RBC % (auto) 0 % 03/04/24 14:10 Nucleated RBCs # 0.0 /100WBC 03/04/24 14:10 Discharge Plan Discharge Patient Disposition: Admitted As Inpatient Clinical Impression: Ischemic leg Condition: Stable Coding Level of Care Code ED Configuration Management Consultant for Russ Baez
--- NOTE | 2024-03-04 14:09 | XACV_ITS ---
Ht: 168 cm Wt: 95 kg BSA: 2.14 m2 Any Known Allergies: Other Gender: Female : 1965 Exam Type: Invasive Peripheral Vascular Procedure(s): Procedure Description: Diagnostic procedure Procedure Description: Peripheral Cath Diagnostic Procedure Procedure Description: Lower extremities' angiography Procedure Description: Peripheral vascular Intervention Procedure Description: PV Balloon Procedure Description: PV Stent Procedure Description: Miscellaneous Procedure Description: ACT Procedure Description: PV Thrombectomy Exam Priority: Routine KHAMU2, Noland; Lower Extremity Interventional Findings Indication for peripheral angiogram: Acute limb threatening ischemia with cold leg Catheters used: UF, SeekerAbdominal aortogram: Luminal irregularity without significant stenosis or stenosis Right renal artery: Not well-visualized Left renal artery: Not well-visualizedRight common iliac: Luminal irregularity Right external iliac:, Luminal irregularity Right internal iliac: Luminal irregularity Right common femoral artery: Luminal irregularity Right profundofemoral artery: Luminal irregularity Right SFA: Luminal irregularity Right popliteal artery: Luminal irregularity Right tibioperoneal trunk: Appeared to be occluded in the distal segment Right anterior tibial artery: Not well-visualized probably occluded Right anterior tibial artery: Not well-visualized probably occluded Right peroneal artery: Not well-visualized probably occludedLeft common iliac artery: Luminal irregularity Left external iliac artery, ltoccluded in the distal segment Left internal iliac artery: Luminal irregularity Left common femoral artery: It is 100% occluded Left profundofemoral artery: It is 100% occluded Left SFA artery: It is 100% occluded Left popliteal artery: It is 100% occluded Left tibioperoneal artery: It is 100% occluded Left anterior tibial artery: Is 100% occluded Left posterior tibial artery: It is 100% occluded Left peroneal artery: 100% occludedLeft arch foot: Not visualized Right arch foot: Not visualized. Thrombectomy/balloon angioplasty and stenting of the left common femoral artery was performed using penumbra Phoenix balloon and superior stent. Thrombectomy/balloon angioplasty was performed in left tibioperoneal trunk anterior tibial peroneal artery popliteal artery left SFA with excellent angiographic result, technique as follow: Right common femoral artery approach was adopted to cannulate and engage left external iliac which was 100% occluded acute on chronic as patient presented with acute limb threatening ischemia and cold leg. Please note that patient is also in diabetic ketoacidosis hyperkalemia and acute on chronic renal failure. After giving insulin calcium gluconate and IV Lasix who proceeded through right common femoral artery approach short 6 [place] sheath in the right common femoral was exchanged over a Glidewire with long 7 [place] flexor sheath in order to accommodate penumbra 7 [place] lightening catheter. After somewhat difficulty were able to cross left common femoral artery as it appeared hemostatic there is high-grade left common femoral artery lesion, SFA was appeared to be acute on chronically occluded, and we then crossed with Glidewire into left tibioperoneal trunk, balloon angioplasty using 5.0 x 250 x 1 and 35 Phoenix balloon was performed in popliteal SFA and common femoral artery, it revealed subtotally occluded left common femoral, we then took the balloon out of the body and crossed with penumbra lightening catheter and start engaging from the left external iliac artery all the way to the tibioperoneal trunk. Multiple passes were performed, it finally restore some flow. We then noticed that there is high-grade distal bifurcating tibioperoneal trunk lesion at the junction of the peroneal artery and left anterior tibial artery. Glidewire was taken out of the body, run-through wire was introduced all the way into peroneal and a second run-through was introduced all the way into tibial in order to protect left anterior tibial artery., Using 3 x 120x Phoenix balloon left anterior tibial peroneal tibioperoneal trunk was balloon. We then exchanged run-through with Glidewire over which 6 x 60 Phoenix 35 OTW balloon was used to perform balloon angioplasty in the popliteal SFA and common iliac vessel. Good angiographic result with excellent flow was noted in SFA popliteal and all 3 vessels below the knee including tibioperoneal trunk however left common femoral artery remained collapsed with subtotal occlusion, we then decided to proceed with stenting of left common femoral artery in order to salvage limb. Using superior 6.0 x 80 mm stent left common femoral artery was stented it was postdilated with 6 x 60 x 135 Phoenix balloon. Excellent angiographic result with sabianism of flow all the way to the foot was noted. At the end of the case left common iliac, external and internal iliac, common femoral, profundofemoral, SFA, popliteal, tibioperoneal trunk, anterior posterior tibial and peroneal arteries were noted to have wide-open patency with good flow all the way to the arch of the foot. Patient was noted to have good palpable anterior posterior tibial pulses her left leg color became normal leg become warm and moist. Recommendations 1-Return to inpatient for close monitoring and routine cath care 2-Risk factor modification for secondary prevention 3-Statin and aspirin 81 mg life-long, if tolerated 4-start patient on Xarelto, continue Plavix 75mg p.o. daily for at least 3 months. We will assess at the end of one year again to continue if further or not 5-internal medicine team was consulted to manage patient electrolytes and DKA 6-Follow up with Dr. Noland in four weeks and your primary care in 10 days. Hemodynamic Data Phase:Rest AO : 152.0 / 152.0 ( 94.0 ) @ 3:16:00 PM 154.0 / 61.0 ( 94.0 ) @ 3:27:00 PM / ( 93.0 ) @ 3:34:00 PM 103.0 / 47.0 ( 66.0 ) @ 3:58:00 PM 90.0 / 90.0 ( 59.0 ) @ 4:30:00 PM 130.0 / 62.0 ( 82.0 ) @ 4:51:00 PM Access Site Site: Left Femoral artery Sheath Size: 7 Fr Hemost... Method: Suture Hemost... Success: Successful Procedure Details Findings Pre-Procedure Time Out. Identified patient by full name and date of as verbalized by the patient/guarantor. Does the consent match the physician's order: Yes. Accurate & Complete Informed Consent: Yes. Inpatient/Outpatient History & Physical on Chart: Yes. If H&P is completed, is and addenduem needed: Yes; If yes, is the addendum complete: Yes. Visualize and Verify Site with Patient/Guarantor: N/A. Relevant Radiology Images available: N/A. Pre-op teaching completed and patient verbalized understanding. The risks, benefits, and alternatives of sedation and/or procedure were discussed by physician. The patient agrees to continue. Procedure started. Correct patient, site and procedure confirmed by cath team. Current diagnosis: Critical Limb Ischemia. PERRLA. 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 Lungs clear x 5 lobes. IV Site on Arrival: 18 gauge in the right anticubital. IV Site on Arrival: 18 gauge in the left anticubital. IV Site on Arrival: Saline Lock. IV Fluids: 0.9% NaCl at KVO. 0 mL infused prior to supervisor dental laboratory. Pre Procedural Pulses: left dorsalis pedis was Absent. Pre Procedural Pulses: left posterior tibial was Absent. Oxygen started at 2liters/min via nasal canula. right groin was prepped with chloroprep then draped in the usual sterile fashion. left groin was prepped with chloroprep then draped in the usual sterile fashion. Baseline sample Acquired. HR: 130 BPM. Physician notified. Physician arrived. Physician scrubbed in. Time out performed with cath team. Admit Source: Emergency department. Lidocaine 1% infiltrated to the right groin. Arterial access obtained with micropuncture set. Rodas catheter inserted using sterile technique at this time. A 5FrFr UF catheter in over wire. Abdominal aortogram performed in [place] @ 10 mL/sec for a total of 30 mL. Critical glucose of 575 and K+ of 6.5 received and verbalized to Dr. Noland. Glidewire Advantage inserted and positioned in the L AT. 6 Fr short sheath exchanged for 45cm Flexor sheath. ACT drawn. Results 188 seconds. Therapeutic limits - pre-heparin administration 90-150 seconds and monitoring heparin during a vascular procedure >250 seconds. Balloon inserted over the wire to the distal superficial femoral. Inflation number : 1 A AB Phoenix 35 COATER BRAKE LININGS Catheter [id number] was prepped and advanced across the Distal Superficial Femoral, Left , then inflated to 8 AARON for 2:00 seconds. Inflation number: 2 The AB Phoenix 35 COATER BRAKE LININGS Catheter [id number] was reinflated across the Distal Superficial Femoral, Left, to 8 AARON for 1:57 seconds. Blood glucose checked, 574. Inflation number: 1 The AB Phoenix 35 COATER BRAKE LININGS Catheter [id number] was reinflated across the Common Femoral, Left, to 8 AARON for 2:01 seconds. Balloon out over wire. Balloon pulled back to the L common femoral. Left common femoral selected and arteriogram with runoff performed @ 10 mL/sec for a total of 30 mL. 6Fr 45 cm flexor sheath exchaged for 7 Fr 45 cm Flexor sheath. Pneumbra Lightening 7 catheter inserted over the wire and positioned in the popliteal. Mechanical thrombectomy performed of TPT. Lightening 7 catheter repostitoned to the Common Femoral. Mechanical thrombectomy perfomed of the common femoral. Lightening 5 catheter removed over the wire. Seeker catheter in over the wire. Glidewire Advantage wire out, command wire inserted through the Seeker and positioned in the L AT. ACT drawn. Results 312 seconds. Therapeutic limits - pre-heparin administration 90-150 seconds and monitoring heparin during a vascular procedure >250 seconds. Seeker catheter out. Balloon inserted over the wire to the anterior tibial. Inflation number : 1 A AB ARMADA 14 OTW [id number] was prepped and advanced across the Anterior Tibial, Left , then inflated to 8 AARON for 1:15 seconds. Blood glucose checked, 505. Inflation number: 2 The AB ARMADA 14 OTW [id number] was reinflated across the Anterior Tibial, Left, to 8 AARON for 2:[address] Saleem called and gave verbal orders for 10u Insulin IV, 1 gm CA Gluconate, and NS at 100ml/hr. Verbal orders ok'd with Dr Noland as well. Balloon pulled back to the TPT. Inflation number: 1 The AB ARMADA 14 OTW [id number] was reinflated across the Peroneal, Left, to 8 AARON for 1:54 seconds. Balloon pulled back to the L popliteal. Inflation number: 1 The AB ARMADA 14 OTW [id number] was reinflated across the Popliteal, Left, to 8 AARON for 2:00 seconds. Inflation number: 2 The AB ARMADA 14 OTW [id number] was reinflated across the Peroneal, Left, to 12 AARON for 1:02 seconds. Balloon out over wire. Balloon inserted over the wire to the L popliteal. Inflation number : 2 A AB Phoenix 35 COATER BRAKE LININGS Catheter [id number] was prepped and advanced across the Popliteal, Left , then inflated to 2 AARON for 0:18 seconds. Inflation number: 3 The AB Phoenix 35 COATER BRAKE LININGS Catheter [id number] was reinflated across the Distal Superficial Femoral, Left, to 6 AARON for 2:00 seconds. Balloon pulled back to the SFA. Inflation number: 2 The AB [place] 35 COATER BRAKE LININGS Catheter [id number] was reinflated across the Common Femoral, Left, to 6 AARON for 2:01 seconds. Balloon pulled back to the common femoral. Balloon out over wire. ACT drawn. Results 280 seconds. Therapeutic limits - pre-heparin administration 90-150 seconds and monitoring heparin during a vascular procedure >250 seconds. Left external iliac selected and arteriogram with runoff performed @ 10 mL/sec for a total of 30 mL. Inflation Number : 3 A Supera Peripheral Stent 6.0x80mm -Lot Number# [id number] EXP 10-23-2024 was prepped and advanced across the Common Femoral, Left. The stent was deployed at 0 AARON for 2:53 seconds. Stent inserted over the wire to the common femoral. Stent balloon out over wire. Inflation number : 4 A AB ARMADA 35 OTW [id number] was prepped and advanced across the Common Femoral, Left , then inflated to 6 AARON for 1:01 seconds. Blood glucose 502. Balloon and wire inserted to the common femoral. Inflation number: 5 The AB ARM[place] 35 OTW [id number] was reinflated across the Common Femoral, Left, to 6 AAORN for 0:22 seconds. Inflation number: 6 The AB ARMADA 35 OTW [id number] was reinflated across the Common Femoral, Left, to 12 AARON for 0:38 seconds. Balloon out. Left common iliac selected and arteriogram performed. 7Fr 45cm Flexor sheath exchanged for 7 Fr short sheath. Family updated. Right common iliac selected and arteriogram with runoff performed @ 10 mL/sec for a total of 30 mL. ACT drawn. Results 393 seconds. Therapeutic limits - pre-heparin administration 90-150 seconds and monitoring heparin during a vascular procedure >250 seconds. A Suture was successful obtaining hemostatsis at the Left Femoral artery insertion site. Sheath(s) sutured into position with 2-0 silk and sterile 4x4's and Op-site applied over the site. No oozing or signs and symptoms of hematoma noted. Physician scrubbed out. Arterial sheath flushed and connected to tranducer and pressure bag with heparinized saline. Post Procedure: left dorsalis pedis pulse 2+. PERRLA. 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 No VTE prophylaxis required. Medication's Wasted: Other = Versed 1 mg. Medication's Wasted: Other = Fentanyl 50 mcg. Medication's Wasted: Other = Lasix 40 mg. Medication's Wasted: Lidocaine 1% = 10 mL. Medication's Wasted: Nitro = 49.1 mg. Medication's Wasted: Heparin = 4000 u. Total IV fluids: 500 mL. PCI Indication: Acute Critical Limb Ischemia. Complications: none. Estimated blood loss: 30mL-40mL. Responsiveness - Normal response to verbal stimuli; alert and oriented, PERRLA. Airway - Unaffected, no intervention required; spontaneous ventilation. Circulation: W/N/L, pulses unchanged. Nausea/Vomiting: No. Procedure completed. Patient transferred by bed to ICU. Post-op diagnosis: Acute Limb Ischemia, S/P Thombectomy and Stenting of L Common Femoral. Vital chart was stopped. Procedure Medications Start: 3:01 PM Stop: 3:01 PM Medication: Versed Amount: 1 mg Route: I.V. Start: 3:02 PM Stop: 3:02 PM Medication: Fentanyl Amount: 50 mcg Route: I.V. Start: 3:12 PM Stop: 3:12 PM Medication: 0.9% Saline Amount: 150 ml Route: I.V. bolus Start: 3:19 PM Stop: 3:19 PM Medication: Lasix (furosemide) Amount: 60 mg Route: I.V. Start: 3:20 PM Stop: 3:20 PM Medication: Insulin R Amount: 10 units Route: I.V. Start: 3:21 PM Stop: 3:21 PM Medication: unlisted medication Amount: g Route: I.V. Start: 3:27 PM Stop: 3:27 PM Medication: Heparin Amount: 7000 units Route: I.V. Start: 3:34 PM Stop: 3:34 PM Medication: Versed Amount: 1 mg Route: I.V. Start: 3:34 PM Stop: 3:34 PM Medication: Fentanyl Amount: 50 mcg Route: I.V. Start: 4:04 PM Stop: 4:04 PM Medication: Versed Amount: 1 mg Route: I.V. Start: 4:04 PM Stop: 4:04 PM Medication: Fentanyl Amount: 50 mcg Route: I.V. Start: 4:16 PM Stop: 4:16 PM Medication: Insulin R Amount: 10 units Route: I.V. Start: 4:17 PM Stop: 4:17 PM Medication: unlisted medication Amount: 1 g Route: I.V. Start: 4:17 PM Stop: 4:17 PM Medication: 0.9% Saline Amount: ml/hr Route: I.V. drip Start: 4:27 PM Stop: 4:27 PM Medication: Nitrogylcerin Amount: 500 mcg Route: I.A. Start: 4:37 PM Stop: 4:37 PM Medication: Heparin Amount: 3000 units Route: I.V. Start: 4:55 PM Stop: 4:55 PM Medication: Nitrogylcerin Amount: 400 mcg Route: I.A. Start: 5:08 PM Stop: 5:08 PM Medication: Plavix Amount: 300 mg Route: P.O. I, the attending physician, have reviewed and verified all procedure medications. Yes, all medications given per verbal order History/Risk Factors Hypertension: No Dyslipidemia: No Peripheral Arterial Disease (PAD): Yes Obesity: Yes Renal Disease: No Prior Interventions PCI: No CABG: No Valve Surgery: No Report Signatures Finalized by Humphrey Noland MD on 03/15/2024 09:51 PM
[2024-03-04] MEDS: HYDROmorphone 1 mg/mL INJ 1 mL IVP (14:18)
[2024-03-04 14:20] LABS: Basophils # 0.1 10^3/uL (0.0-0.1); Basophils % 0.4 %; Eosinophils % 0.2 %; Hematocrit 35.1 % (36-47); Lymphocytes # 0.6 10^3/uL (0.8-4.8); Lymphocytes % 5.3 %; Mean Corpuscular HGB Conc 30.8 g/dL (30-55); Mean Corpuscular Hemoglobin 27.3 pg (27-33); Mean Corpuscular Volume 88.9 fl (85-98); Mean Platelet Volume 12.4 fL (7.4-10.4); Monocytes # 0.7 10^3/uL (0.2-0.9); Monocytes % 5.6 %; Neutrophils # 10.39 10^3/uL (1.8-7.7); Nucleated Red Blood Cells % 0 %; Platelet Count 169 10^3/cmm (157-399); Red Blood Count 3.95 10^6/uL (3.85-5.65); Red Cell Distribution Width 17.4 % (12.1-15.1)
--- NOTE | 2024-03-04 14:24 | PM.CONSULT ---
Providers/Reason For Consult Consulting Physician/Specialty*: Humphrey Noland MD Reason for Consult*: Acute limb threatening ischemia/acute leg Requesting Physician: Dr. Mclean Primary Care Provider: Jovan Singer MD History of Present Illness History of Present Illness Jacquelin Whiteside is a 58 year old female past medical history significant for coronary artery disease status post CABG in 2006, diabetes mellitus uncontrolled, thrombocytopenia, chronic kidney disease, history of atrial fibrillation, hypertension hyperlipidemia liver cirrhosis status post pacemaker presented with left cold leg with excruciating pain. Left leg appeared to be mottled icy cold she does not have much sensory or motor sensation, she is not able to wiggle the toes. According to the patient 9 AM this morning all of a sudden she started feeling excruciating pain she thought it would improve however when it become unbearable she decided to come to the ER. I was called by our ER physician, I immediately saw the patient, appear to me that patient has acute limb threatening ischemia therefore we will proceed with urgent peripheral angiogram/thrombectomy/angioplasty if indicated. Patient and the family by bedside her and son along with her has been explained all risk-benefit and alternative for the procedure she understand 2 to 3% risk for stroke major bleed and . She understand 10 to 15% risk for losing limb amputation for leg, she understand risk for vascular injury leading to surgery contrast induced nephropathy major minor bleed due to underlying liver pathology myocardial infarction due to underlying coronary artery disease hypertension and shock. She would like to proceed with it. Medications/Allergies Home Medications Medication Instructions Recorded Confirmed Last Taken Type lancing device with lancets kit #1 ea 03/14/20 03/04/24 Unknown Rx blood-glucose meter #1 ea 11/05/20 03/04/24 Unknown Rx blood sugar diagnostic (Blood #100 ea 07/23/21 03/04/24 Unknown Rx Glucose Test strips) flash glucose scanning reader #1 ea 08/04/22 03/04/24 Unknown Rx (FreeStyle Mauricio 14 Day [place]) lancets 33 gauge #100 ea 06/04/23 03/04/24 Unknown Rx spironolactone 50 mg tablet 50 mg PO DAILY #90 tabs 06/15/23 03/04/24 03/04/24 Rx carvedilol 3.125 mg tablet 3.125 mg PO BID 08/04/23 03/04/24 03/04/24 History furosemide 20 mg tablet (Lasix) 20 mg PO DAILY PRN Edema 08/04/23 03/04/24 12/22/23 History irbesartan 75 mg tablet 75 mg PO DAILY 08/04/23 03/04/24 03/04/24 History naloxone 4 mg/actuation nasal spray See Rx Instructions .Route .COMPLEX 08/04/23 03/04/24 Unknown History insulin glargine 100 unit/mL (3 50 unit (0.5 mL) SUBCUT BID #30 mL 11/16/23 03/04/24 03/04/24 Rx mL) subcutaneous pen (Lantus Solostar U-100 Insulin) ondansetron 8 mg disintegrating 8 mg PO Q8H PRN nausea and 12/17/23 03/04/24 12/22/23 Rx tablet vomiting #10 tabs nitroglycerin 0.4 mg sublingual See Rx Instructions .Route 12/22/23 03/04/24 Unknown History tablet .COMPLEX PRN Chest Pain rifaximin 550 mg tablet (Xifaxan) 550 mg PO BID 12/22/23 03/04/24 03/04/24 History insulin lispro 100 unit/mL See Rx Instructions .Route 12/24/23 03/04/24 03/04/24 Rx subcutaneous pen (Humalog KwikPen .COMPLEX #45 mL (U-100) Insulin) flash glucose sensor (FreeStyle #1 kit 01/17/24 03/04/24 Unknown Rx Mauricio 14 Day Sensor kit) lactulose 10 gram/15 mL oral See Rx Instructions .Route 02/15/24 03/04/24 03/03/24 Rx solution (Constulose) .COMPLEX #946 mL pantoprazole 40 mg tablet,delayed 40 mg PO DAILY #90 tabs 02/15/24 03/04/24 03/04/24 Rx release pen needle, diabetic 31 gauge x #100 ea 02/25/24 03/04/24 Unknown Rx 16 (BD Ultra-Fine Short Pen Needle) morphine 30 mg tablet,extended 30 mg PO Q12H PRN Pain 30 days #60 02/26/24 03/04/24 03/04/24 Rx release tabs empagliflozin 10 mg tablet 10 mg PO QAM 03/04/24 03/04/24 03/04/24 History (Jardiance) Allergies Allergy/AdvReac Type Severity Reaction Status Date / Time insulin degludec Allergy ALGY-Difficulty Verified 12/31/23 15:15 [From Tresiba FlexTouch Breathing U-100] levofloxacin Allergy SWELLING Verified 12/31/23 15:15 promethazine Allergy confusion Verified 12/31/23 15:15 duloxetine AdvReac ADR-Swelling Verified 12/31/23 15:15 of the Eye Current Medications Generic Name Dose Route Start Last Admin Trade Name Freq PRN Reason Stop Dose Admin Heparin Sodium/Sodium Chloride 25,000 unit in 500 mls @ 0 mls/hr 03/04/24 13:45 03/04/24 13:55 Heparin Drip IV 14 unit/kg/hr CONT NIKOLAS 27.18 mls/hr Administration Protocol Per Protocol PFSH Acute PFSH: Medical History Atrial fibrillation History of atrial fibrillation postoperatively. CAD (coronary artery disease) Diabetes mellitus Pressure injury of sacral region, stage 2 Chronic narcotic use extended release morphine for chronic pain Lower extremity edema Neuropathy Esophageal varices CASTANON (nonalcoholic steatohepatitis) Labial abscess 2015, 02/2023 s/p I&D Encephalopathy, hepatic Diabetic neuropathy Stage 3b chronic kidney disease (CKD) Cirrhosis Attributed to diabetes and chronic pain medication use her patient Thrombocytopenia (HFpEF) heart failure with preserved ejection fraction Hepatomegaly Splenomegaly Carpal tunnel syndrome Migraine Sporadic pituitary adenoma History of DC (myocardial infarction) (~2006) Essential hypertension Pacemaker (~2012) due to symptomatic bradycardia Hyperlipidemia Fe deficiency anemia Surgical History History of esophageal surgery History of permanent cardiac pacemaker placement History of esophagogastroduodenoscopy (EGD) 4-5 years Hx of colonoscopy 10 plus years Vulvar abscess (~05/01/15) I&D of left labia majora abscess; performed by [facility]. S/P arterial stent x 3; approximately in 2012, 2013 - [facility] S/P brain surgery (~2005) Removal of brain tumor- benign; in the pituitary gland S/P CABG x 2 in 2006 S/P section performed in 1990, 1992 S/P hysterectomy (~1992) converted from C/Section to NAMAN,bilateral salpingectomy, probable ovaries remain. Most likely performed by Dr. Roper. Family History Brother Stroke Diabetes Mother , 72 Diabetes Heart disease Hypertension Stroke Father , 68 Diabetes Heart disease Hypertension Stroke Grandmother Diabetes Maternal Other CAD (coronary artery disease) Hyperlipidemia Lung disease Denies family history of Colon cancer Ovarian cancer Clotting disorder Dementia Hypercholesteremia Psychiatric illness Chronic kidney disease (CKD) Breast cancer Anesthesia complication Bleeding disorder Cancer Uterine cancer Thyroid disease Social History Smoking and tobacco/nicotine status: former use of tobacco/nicotine Alcohol intake: never Substance/Drug Use: never Adopted: No service: No Current gender identity: Female Vitals/I&O/Wt Last Vital Signs Temp 97.4 F L 03/04/24 12:41 Pulse 64 03/04/24 14:00 Resp 16 03/04/24 14:18 BP 121/70 03/04/24 14:00 Pulse Ox 94 03/04/24 14:00 O2 Del Method Room Air 03/04/24 12:41 03/03/24 03/04/24 03/04/24 22:59 06:59 14:59 Intake Total 0 / 0 Balance 0 / 0 Weight last 48 hrs Weight 214 lb Physical Exam Const: OTHER: GENERAL: Patient is alert, awake and oriented x3 she is in moderate distress HEART: Regular S1 and S2. No murmur, rub or gallop. LUNGS: Clear to auscultate bilaterally. CENTRAL NERVOUS SYSTEM: Grossly nonfocal. EXTREMITIES: Left leg below the knee icy cold mottled motor or sensory sensation. Patient has reasonable left common femoral pulse, patient has good right common femoral pulse Data 03/04/24 14:10 03/04/24 14:10 A&P Assessment and plan (1) Acute lower limb ischemia: Given nature of acute limb threatening ischemia and continuous left leg pain I will proceed with emergent peripheral angiogram/thrombectomy/angioplasty if indicated. Patient is high risk for bleeding given history of thrombocytopenia liver cirrhosis, she understood risk-benefit and alternative she would like to proceed with it. Patient is high risk for contrast-induced nephropathy will IV hydrate, her chances of developing contrast nephropathy is more than 10%, patient understood and would like to proceed with it. Please note that due to technical error in the Slab Worker there appeared to be delay in the case if we are not able to reinstal the Slab Worker back to working I may have to transfer the patient immediately. Continue aspirin statin IV heparin. (2) CAD (coronary artery disease): Appear to be stable denies any chest pain Qualifiers: Coronary Disease-Associated Artery/Lesion type: [place] artery [place] vs. transplanted heart: [place] heart Associated angina: without angina Qualified Code(s): I25.10 - Atherosclerotic heart disease of [place] coronary artery without angina pectoris (3) Thrombocytopenia: Pending and will be monitoring will check PT/INR Plan I am expecting her stay to cross more than 2 midnight Consult Attestations Medical Necessity Statement: I am expecting her stay to cross more than 2 midnights Coding Level of Care Code Acute Code for [facility] Fwd Diagnoses Acute lower limb ischemia I99.8 Coronary artery disease involving [place] coronary artery of [place] heart without angina pectoris I25.10 Coronary Disease-Associated Artery/Lesion type: [place] artery [place] vs. transplanted heart: [place] heart Associated angina: without angina Thrombocytopenia D69.6
--- NOTE | 2024-03-04 14:33 | ED_ITS ---
<Statement entered by Kailee Chambers RN - 03/04/24 14:41> photos taken by provider request. HPI - Extremity Problem 2 General: Chief complaint: Extremity Problem,Nontraumatic Stated complaint: left leg pain Time Seen by Provider: 03/04/24 12:39 Source: patient and family Mode of arrival: wheelchair Limitations: no limitations History of Present Illness: Pain Consistency: constant Location: left and lower extremity Relieving factors: nothing Exacerbating factors: range of motion, weight bearing and palpation Related Data Home Medications Medication Instructions Recorded Confirmed carvedilol 3.125 mg tablet 3.125 mg PO BID 08/04/23 03/04/24 furosemide 20 mg tablet (Lasix) 20 mg PO DAILY PRN Edema 08/04/23 03/04/24 irbesartan 75 mg tablet 75 mg PO DAILY 08/04/23 03/04/24 naloxone 4 mg/actuation nasal spray See Rx Instructions .Route .COMPLEX 08/04/23 03/04/24 nitroglycerin 0.4 mg sublingual See Rx Instructions .Route 12/22/23 03/04/24 tablet .COMPLEX PRN Chest Pain rifaximin 550 mg tablet (Xifaxan) 550 mg PO BID 12/22/23 03/04/24 empagliflozin 10 mg tablet 10 mg PO QAM 03/04/24 03/04/24 (Jardiance) Previous Rx's Medication Instructions Recorded lancing device with lancets kit #1 ea 03/14/20 blood-glucose meter #1 ea 11/05/20 blood sugar diagnostic (Blood #100 ea 07/23/21 Glucose Test strips) flash glucose scanning reader #1 ea 08/04/22 (FreeStyle Mauricio 14 Day [place]) lancets 33 gauge #100 ea 06/04/23 spironolactone 50 mg tablet 50 mg PO DAILY #90 tabs 06/15/23 insulin glargine 100 unit/mL (3 50 unit (0.5 mL) SUBCUT BID #30 mL 11/16/23 mL) subcutaneous pen (Lantus Solostar U-100 Insulin) ondansetron 8 mg disintegrating 8 mg PO Q8H PRN nausea and 12/17/23 tablet vomiting #10 tabs insulin lispro 100 unit/mL See Rx Instructions .Route 12/24/23 subcutaneous pen (Humalog KwikPen .COMPLEX #45 mL (U-100) Insulin) flash glucose sensor (FreeStyle #1 kit 01/17/24 Mauricio 14 Day Sensor kit) lactulose 10 gram/15 mL oral See Rx Instructions .Route 02/15/24 solution (Constulose) .COMPLEX #946 mL pantoprazole 40 mg tablet,delayed 40 mg PO DAILY #90 tabs 02/15/24 release pen needle, diabetic 31 gauge x #100 ea 02/25/24 5/16 (BD Ultra-Fine Short Pen Needle) morphine 30 mg tablet,extended 30 mg PO Q12H PRN Pain 30 days #60 02/26/24 release tabs Allergies Allergy/AdvReac Type Severity Reaction Status Date / Time insulin degludec Allergy ALGY-Difficulty Verified 12/31/23 15:15 [From Tresiba FlexTouch Breathing U-100] levofloxacin Allergy SWELLING Verified 12/31/23 15:15 promethazine Allergy confusion Verified 12/31/23 15:15 duloxetine AdvReac ADR-Swelling Verified 12/31/23 15:15 of the Eye [facility] [place] [facility] Medical History Atrial fibrillation History of atrial fibrillation postoperatively. CAD (coronary artery disease) Diabetes mellitus Pressure injury of sacral region, stage 2 Chronic narcotic use extended release morphine for chronic pain Lower extremity edema Neuropathy Esophageal varices CASTANON (nonalcoholic steatohepatitis) Labial abscess 2015, 02/2023 s/p I&D Encephalopathy, hepatic Diabetic neuropathy Stage 3b chronic kidney disease (CKD) Cirrhosis Attributed to diabetes and chronic pain medication use her patient Thrombocytopenia (HFpEF) heart failure with preserved eje ction fraction Hepatomegaly Splenomegaly Carpal tunnel syndrome Migraine Sporadic pituitary adenoma History of [place] (myocardial infarction) (~2006) Essential hypertension Pacemaker (~2012) due to symptomatic bradycardia Hyperlipidemia Fe deficiency anemia Surgical History History of esophageal surgery History of permanent cardiac pacemaker placement History of esophagogastroduodenoscopy (EGD) 4-5 years Hx of colonoscopy 10 plus years Vulvar abscess (~05/01/15) I&D of left labia majora abscess; performed by [facility]. S/P arterial stent x 3; approximately in 2012, 2013 - [facility] S/P brain surgery (~2005) Removal of brain tumor- benign; in the pituitary gland S/P CABG x 2 in 2007 S/P section performed in 1990, 1992 S/P hysterectomy (~1992) converted from C/Section to NAMAN,bilateral salpingectomy, probable ovaries remain. Most likely performed by Dr. Roper. Family History Brother Stroke Diabetes Mother , 72 Diabetes Heart disease Hypertension Stroke Father , 68 Diabetes Heart disease Hypertension Stroke Grandmother Diabetes Maternal Other CAD (coronary artery disease) Hyperlipidemia Lung disease Denies family history of Colon cancer Ovarian cancer Clotting disorder Dementia Hypercholesteremia Psychiatric illness Chronic kidney disease (CKD) Breast cancer Anesthesia complication Bleeding disorder Cancer Uterine cancer Thyroid disease Social History Smoking and tobacco/nicotine status: former use of tobacco/nicotine Alcohol intake: never Substance/Drug Use: never Adopted: No service: No Current gender identity: Female Course 2 Vital Signs: Vital signs: Vital Signs Temperature 97.4 F L 03/04/24 12:41 Pulse Rate 120 H 03/04/24 14:32 Respiratory Rate 16 03/04/24 14:32 Blood Pressure 121/50 03/04/24 14:32 Pulse Oximetry 91 03/04/24 14:32 Oxygen Delivery Me thod Room Air 03/04/24 12:41 MDM - Extremity (Nontraumatic) Medical Decision Making Lab Data 03/04/24 14:10 03/04/24 14:10 Radiology Impressions Duplex Scan Lower Extremity Artery 03/04/24 13:34 IMPRESSION: Extensive arterial occlusion. ADDENDUM: 03/04/24 1418 THIS REPORT CONTAINS FINDINGS THAT MAY BE CRITICAL TO PATIENT CARE. The findings were verbally communicated via telephone conference with Dr. Pederson at 2:16 PM LINE COOK on 03/04/2024. The findings were acknowledged and understood. Laboratory Results WBC 11.80 10^3/uL (3.29-11.43) H 03/04/24 14:10 RBC 3.95 10^6/uL (3.85-5.65) 03/04/24 14:10 Hgb 10.80 g/dL (11.27-16.99) L 03/04/24 14:10 Hct 35.1 % (36-47) L 03/04/24 14:10 MCV 88.9 fl (85-98) 03/04/24 14:10 MCH 27.3 pg (27-33) 03/04/24 14:10 MCHC 30.8 g/dL (30-55) 03/04/24 14:10 RDW 17.4 % (12.1-15.1) H 03/04/24 14:10 Plt Count 169 10^3/cmm (157-399) 03/04/24 14:10 Plt Count Cancelled 03/04/24 14:10 MPV 12.4 fL (7.4-10.4) H 03/04/24 14:10 Neut % (Auto) 88.0 % 03/04/24 14:10 Lymph % (Auto) 5.3 % 03/04/24 14:10 Glynn % (Auto) 5.6 % 03/04/24 14:10 Eos % (Auto) 0.2 % 03/04/24 14:10 Baso % (Auto) 0.4 % 03/04/24 14:10 Neut # (Auto) 10.39 10^3/uL (1.8-7.7) H 03/04/24 14:10 Lymph # (Auto) 0.6 10^3/uL (0.8-4.8) L 03/04/24 14:10 Glynn # (Auto) 0.7 10^3/uL (0.2-0.9) 03/04/24 14:10 Eos # (Auto) 0.0 10^3/uL (0.0-0.8) 03/04/24 14:10 Baso # (Auto) 0.1 10^3/uL (0.0-0.1) 03/04/24 14:10 Nucleated RBC % (auto) 0 % 03/04/24 14:10 Nucleated RBCs # 0.0 /100WBC 03/04/24 14:10 All radiology interpretation(s) finalized by discharge Discharge Plan Discharge Patient Disposition: Admitted As Inpatient Condition: Stable Coding Level of Care Code ED [place]eling Machine Setup Operator for Russ Baez
[2024-03-04 14:43] LABS: Alanine Aminotransferase 51 U/L (0-33); Albumin Level 3.5 g/dL (3.5-5.2); Alkaline Phosphatase 346 U/L (35-105); Anion Gap 24.5 (5-19); Aspartate Amino Transferase 57 U/L (0-32); Blood Urea Nitrogen 52 mg/dL (8-23); Carbon Dioxide 18 mmol/L (22-29); Chloride 94 mmol/L (98-107); Creatinine Clr Calc Pharmacy 36.9862; Globulin 4.6 g/dL (1.3-4.6); Osmolality Calculated 311 mOsm/kg (285-295); Sodium 130 mmol/L (136-145); Total Bilirubin 2.4 mg/dL (0.15-1.2); Total Protein 8.1 g/dL (6.6-8.7)
--- NOTE | 2024-03-04 14:49 | W.PM.OPSUD ---
Surgery/Procedure H&P Update DATE OF PROCEDURE: March 04, 2024 DATE H&P PERFORMED: 12/17/23 H&P UPDATE INFORMATION: I have reviewed H&P completed within last 30 days, I have examined patient prior to procedure and No changes to prior documentation PREOP DIAGNOSIS: Acute limb ischemia PRIMARY INDICATION FOR PROCEDURE: Acute limb ischemia with cold leg limb threatening ischemia, we will proceed with emergent peripheral angiogram/thrombectomy/angioplasty PATIENT REASSESSED PRIOR TO SEDATION, WITH NO CHANGE NOTED: Yes PHYSICAL EXAM: alert, oriented x 3, clear to auscultation bilaterally, regular rate & rhythm and operative site marked AIRWAY EVAL/ANESTHESIA PLAN: ASA II, Risks, benefits & alternatives of sedation and/or procedure discussed and Patient agrees to continue as planned
[2024-03-04 14:55] LABS: Glucose 575 mg/dL (65-115); Potassium 6.5 mmol/L (3.5-5.1)
--- NOTE | 2024-03-04 16:33 | PC.RESP ---
pt in trestle mainternance laborer. kimani do IS and assess and treat when in room
--- NOTE | 2024-03-04 17:33 | PM.PROC ---
Procedure Note: Date of procedure: 03/04/24 Pre-procedure diagnosis: Acute limb ischemia Post-procedure diagnosis: other Procedure: Indication: Acute limb ischemia Diagnostic peripheral angiogram was performed: It revealed no blood flow beyond the left external iliac, common femoral profunda femoral SFA popliteal and below the knee acute on chronic with possible thrombotic occlusion. Left common femoral was occluded with calcification and mixed plaque which may have ruptured. Thrombectomy using penumbra balloon angioplasty of anterior tibial tibioperoneal trunk SFA popliteal common femoral followed by stent of the common femoral artery as it was not responding to balloon angioplasty. Excellent angiographic result with good church of flow all the way into the foot with three-vessel runoff. Patient was also noted to have hyperkalemic 6.8 along with renal failure of creatinine of 1.9 which is acute on chronic and possible DKA blood sugar above 500. Medicine help was requested. Calcium gluconate IV fluid insulin and Lasix were given. Patient remained stable and now being transferred to ICU with plan to request consult for internal medicine and nephrology Plan: Load patient with Plavix 300 mg p.o. now Continue aspirin and statin Continue to monitor platelet Continue to monitor for bleeding Sheath in place in the right groin once PTT less than 45 will pull out the sheath bedrest for 6 hours Plan to add Xarelto 2.5 mg once complete bedrest Continue IV fluid 100 mL/h in order to prevent contrast induced nephropathy. Nephrology and consult is requested Coding Level of Care Code Acute Code for [facility]
[2024-03-04 17:47] LABS: Glucose Point of Care 574 mg/dL (70-110)
[2024-03-04 17:47] LABS: Glucose Point of Care 505 mg/dL (70-110)
[2024-03-04 17:48] LABS: Glucose Point of Care 502 mg/dL (70-110)
--- NOTE | 2024-03-04 18:01 | P.CONIM_ITS ---
Providers/Reason For Consult 2 Consulting Physician/Specialty*: Hospitalist Reason for Consult*: Acute kidney injury hyperkalemia acidosis Requesting Physician: Dr. Noland Attending Physician: Cooper Saleem MD Primary Care Provider: Jovan Singer MD History of Present Illness History of Present Illness Jacquelin Whiteside is a 58 year old female with past medical history of Hypertension, CABG post pacemaker implantation, atrial fibrillation, CKD, Morrell leading to liver cirrhosis with portal hypertension on daily lactulose follows up with director of consulting services up in [place] presents to the ER today because of acute pain in her left leg which started today morning. Patient was seen in the ER by cardiology team and was taken to cardiac Public Relations Assistant and urgency with concerns for acute limb ischemia where she was found to have acute stenosis at left external iliac, common femoral profunda with acute on chronic with possible thrombotic occlusion below the knee. Patient underwent thrombectomy with balloon angioplasty of anterior tibial, tibioperoneal, trunk SFA popliteal followed by stent placement and common femoral artery. Blood work done in the ER was consistent with acute kidney injury with creatinine of 1.9, potassium of 6.8 with a blood sugar of more than 500 hence medicine was consulted for further management. When seen in the ICU with family at bedside postprocedure patient is awake and alert, denies any nausea vomiting, headache. Complaining of pain in her leg. States she checks her blood sugars at home. Blood sugars are usually very labile. She has hypoglycemia every morning with blood sugars going up to more than 300s especially after she she takes her lactulose. Review of Systems 2 General: Reports: 10 or more systems reviewed and unremarkable except in HPI and below Const: Denies: fever(s), chills, body aches, change in appetite, change in weight, malaise, night sweats, diaphoresis, change in sleep pattern, daytime sleepiness or snoring Eyes: Denies: change in vision, blurry vision, photophobia, eye discomfort or eye discharge ENMT: Denies: throat pain, enlarged tonsils, hoarseness, mouth pain, oral sores, dry mouth, tinnitus, nasal congestion or post nasal drip Card: Denies: chest pain, palpitations, irregular heart rhythm, edema, swelling of feet/ankles, lightheadedness, syncope, pre-syncope, dyspnea on exertion, orthopnea, leg pain with exertion or acrocyanosis Resp: Denies: dyspnea, productive cough, non-productive cough, wheezing, stridor, pain on inspiration, change in phlegm color, hemoptysis or chest congestion GI: Denies: abdominal pain, nausea, vomiting, hematemesis, coffee ground emesis, dysphagia, heartburn, diarrhea, constipation, bloating, GI cramping, change in bowel habits, pain on defecation, hematochezia or melena : Denies: flank pain, dysuria, urinary frequency, urinary urgency, urinary hesitancy, nocturia or hematuria Musc: Denies: neck pain, back pain, extremity pain, joint pain, joint swelling, joint redness, joint stiffness or limited range of motion Neuro: Denies: headache(s), numbness in extremities, weakness in extremities, sensory changes, lack of coordination, difficulty walking, frequent falls, dizziness, vertigo, confusion, Slurred speech present, difficulty communicating thoughts or seizure-like activity Psych: Denies: anxiety, depression, mood swings, panic attacks, hopelessness or irritability Endo: Denies: polyuria, polydipsia, tired all the time, cold intolerance, excessive sweating, flushing or heat intolerance Naveen/Lymph: Denies: easy bruising or easy bleeding All/Imm: Denies: tongue swelling, facial swelling or acute wheezing Medications/Allergies Home Medications Medication Instructions Recorded Confirmed Last Taken Type lancing device with lancets kit #1 ea 03/14/20 03/04/24 Unknown Rx blood-glucose meter #1 ea 11/05/20 03/04/24 Unknown Rx blood sugar diagnostic (Blood #100 ea 07/23/21 03/04/24 Unknown Rx Glucose Test strips) flash glucose scanning reader #1 ea 08/04/22 03/04/24 Unknown Rx (FreeStyle Mauricio 14 Day Burney) lancets 33 gauge #100 ea 06/04/23 03/04/24 Unknown Rx spironolactone 50 mg tablet 50 mg PO DAILY #90 tabs 06/15/23 03/04/24 03/04/24 Rx carvedilol 3.125 mg tablet 3.125 mg PO BID 08/04/23 03/04/24 03/04/24 History furosemide 20 mg tablet (Lasix) 20 mg PO DAILY PRN Edema 08/04/23 03/04/24 12/22/23 History irbesartan 75 mg tablet 75 mg PO DAILY 08/04/23 03/04/24 03/04/24 History naloxone 4 mg/actuation nasal spray See Rx Instructions .Route .COMPLEX 08/04/23 03/04/24 Unknown History insulin glargine 100 unit/mL (3 50 unit (0.5 mL) SUBCUT BID #30 mL 11/16/23 03/04/24 03/04/24 Rx mL) subcutaneous pen (Lantus Solostar U-100 Insulin) ondansetron 8 mg disintegrating 8 mg PO Q8H PRN nausea and 12/17/23 03/04/24 12/22/23 Rx tablet vomiting #10 tabs nitroglycerin 0.4 mg sublingual See Rx Instructions .Route 12/22/23 03/04/24 Unknown History tablet .COMPLEX PRN Chest Pain rifaximin 550 mg tablet (Xifaxan) 550 mg PO BID 12/22/23 03/04/24 03/04/24 History insulin lispro 100 unit/mL See Rx Instructions .Route 12/24/23 03/04/24 03/04/24 Rx subcutaneous pen (Humalog KwikPen .COMPLEX #45 mL (U-100) Insulin) flash glucose sensor (FreeStyle #1 kit 01/17/24 03/04/24 Unknown Rx Mauricio 14 Day Sensor kit) lactulose 10 gram/15 mL oral See Rx Instructions .Route 02/15/24 03/04/24 03/03/24 Rx solution (Constulose) .COMPLEX #946 mL pantoprazole 40 mg tablet,delayed 40 mg PO DAILY #90 tabs 02/15/24 03/04/24 03/04/24 Rx release pen needle, diabetic 31 gauge x #100 ea 02/25/24 03/04/24 Unknown Rx 5/16 (BD Ultra-Fine Short Pen Needle) morphine 30 mg tablet,extended 30 mg PO Q12H PRN Pain 30 days #60 02/26/24 03/04/24 03/04/24 Rx release tabs empagliflozin 10 mg tablet 10 mg PO QAM 03/04/24 03/04/24 03/04/24 History (Jardiance) Allergies Allergy/AdvReac Type Severity Reaction Status Date / Time insulin degludec Allergy ALGY-Difficulty Verified 12/31/23 15:15 [From Tresiba FlexTouch Breathing U-100] levofloxacin Allergy SWELLING Verified 12/31/23 15:15 promethazine Allergy confusion Verified 12/31/23 15:15 duloxetine AdvReac ADR-Swelling Verified 12/31/23 15:15 of the Eye Current Medications Generic Name Dose Route Start Last Admin Trade Name Freq PRN Reason Stop Dose Admin Heparin Sodium/Sodium Chloride 25,000 unit in 500 mls @ 0 mls/hr 03/04/24 13:45 03/04/24 13:55 Heparin Drip IV 14 unit/kg/hr CONT NIKOLAS 27.18 mls/hr Administration Protocol Per Protocol PFSH Acute 2 PFSH: Medical History (Updated 03/04/24 @ 18:10 by Cooper Saleem MD) Stage 3b chronic kidney disease (CKD) Cirrhosis Attributed to diabetes and chronic pain medication use her patient Atrial fibrillation History of atrial fibrillation postoperatively. CAD (coronary artery disease) Diabetes mellitus Pressure injury of sacral region, stage 2 Chronic narcotic use extended release morphine for chronic pain Lower extremity edema Neuropathy Esophageal varices MORRELL (nonalcoholic steatohepatitis) Labial abscess 2015, 02/2023 s/p I&D Encephalopathy, hepatic Diabetic neuropathy Thrombocytopenia (HFpEF) heart failure with preserved eje ction fraction Hepatomegaly Splenomegaly Carpal tunnel syndrome Migraine Sporadic pituitary adenoma History of MO (myocardial infarction) (~2006) Essential hypertension Pacemaker (~2012) due to symptomatic bradycardia Hyperlipidemia Fe deficiency anemia Surgical History History of esophageal surgery History of permanent cardiac pacemaker placement History of esophagogastroduodenoscopy (EGD) 4-5 years Hx of colonoscopy 10 plus years Vulvar abscess (~05/01/15) I&D of left labia majora abscess; performed by [facility]. S/P arterial stent x 3; approximately in 2012, 2013 - [facility] S/P brain surgery (~2005) Removal of brain tumor- benign; in the pituitary gland S/P CABG x 2 in 2006 S/P section performed in 1990, 1992 S/P hysterectomy (~1992) converted from C/Section to NAMAN,bilateral salpingectomy, probable ovaries remain. Most likely performed by Dr. Roper. Family History Brother Stroke Diabetes Mother , 72 Diabetes Heart disease Hypertension Stroke Father , 68 Diabetes Heart disease Hypertension Stroke Grandmother Diabetes Maternal Other CAD (coronary artery disease) Hyperlipidemia Lung disease Denies family history of Colon cancer Ovarian cancer Clotting disorder Dementia Hypercholesteremia Psychiatric illness Chronic kidney disease (CKD) Breast cancer Anesthesia complication Bleeding disorder Cancer Uterine cancer Thyroid disease Social History Smoking and tobacco/nicotine status: former use of tobacco/nicotine Alcohol intake: never Substance/Drug Use: never Adopted: No service: No Current gender identity: Female Vitals/I&O/Wt Last Vital Signs Temp 97.4 F L 03/04/24 12:41 Pulse 124 H 03/04/24 17:42 Resp 15 03/04/24 17:42 BP 121/50 03/04/24 14:32 Pulse Ox 97 03/04/24 17:42 O2 Del Method Room Air 03/04/24 17:42 03/04/24 03/04/24 03/04/24 06:59 14:59 22:59 Intake Total 0 / 0 Balance 0 / 0 Weight last 48 hrs Weight 102 kg Weight 97.069 kg Physical Exam 2 Narrative: General: No acute distress, AO x3, sick appearing, slightly drowsy HEENT: PERRLA, pupils bilaterally equal and reactive Chest: Normal vesicular breath sounds, no added sounds, equal good air entry bilaterally CVS: S1-S2 regular, no murmurs, no tachycardia, no gallops, no rubs Abdomen: Soft, nontender, no organomegaly, bowel sounds present Neuro: No focal deficits, no facial deformity, Extremity: Bilateral lower limb cold to touch, palpable DP on the left leg Data 03/04/24 14:10 03/04/24 14:10 Micro: Microbiology 03/04/24 14:13 Blood Culture - Preliminary Blood SPECIMEN COLLECTED 03/04/24 14:10 Blood Culture - Preliminary Blood SPECIMEN COLLECTED A&P Assessment and plan (1) Acute lower limb ischemia: Post balloon angioplasty and peripheral stenting of common femoral. Aspirin, Plavix, statin. Medical management as per cardiology team. Neurovascular check every 4 hour. Heparin drip as per cardiology team. Transition to Xarelto if and when possible. Morphine 2 mg 4 hours as needed, [place] 5 mg with 6-hour as needed for pain. Hold off on home dose of morphine as needed for now. (2) Ischemic leg: (3) Acute kidney injury: Most likely in setting of acute limb ischemia. Does have history of CKD with baseline creatinine of around 1.6. Patient also takes ARB, spironolactone, Lasix at home. Associated with hyponatremia, hyperkalemia, high anion gap metabolic acidosis. Medical reconciliation done for nephrotoxic drugs. Hold off on ARB, NSAID, spironolactone for now. Rodas catheter. Normal saline 100 cc/h. Strict input output charting, daily weights. Repeat BMP stat. Given concerns for acute kidney injury, acute limb ischemia, peripheral angiography with plasty there is a high risk of worsening renal functions going forward. We did discuss in detail with the patient and family that for now we will have to continue to monitor renal functions going forward and if needed might have to consult nephrology for possible dialysis. They are agreeable With current treatment plan. (4) Hyperkalemia: Received calcium gluconate and D10 along with tenets of insulin. BMP stat. Depending on the potassium level will plan for further treatment. (5) High anion gap metabolic acidosis: Could be in setting of acute kidney injury. Patient does have severe hyperglycemia. Cannot rule out DKA. Check ABG, ketones, urinalysis. Depending on the ketones, repeat BMP and ABG will plan for possible insulin drip and treatment for possible DKA. For now check BMP every 8 hours. Concerns for DKA will check every 4 hours. (6) Hyponatremia: Acute. Component of pseudo hyponatremia as well in setting of hyperglycemia. Monitor every 8 hourly. (7) Hyperglycemia: (8) Diabetes mellitus: Check A1c. Insulin sliding scale versus insulin drip depending on labs as above. At home takes glargine 50 units twice daily along with sliding scale. Will continue to monitor. (9) Cirrhosis: In setting of MORRELL. Associated with esophageal varices. Continue with lactulose and rifaximin at home. Protonix 40 mg twice daily. Hold off on spironolactone for now. Qualifiers: Hepatic cirrhosis type: other cirrhosis Qualified Code(s): K74.69 - Other cirrhosis of liver (10) Esophageal varices: (11) Stage 3b chronic kidney disease (CKD): Plan Patient does have some leukocytosis. Low concerns for infectious process for now. Check procalcitonin, lactic, CPK, blood culture, urinalysis, MRSA. Empirically start patient on IV Zosyn. Hold off on vancomycin for now. Full code N.p.o. for now with concerns of possible DKA. If no DKA will start on carb consistent cardiac diet Protonix for PUD prophylaxis Heparin drip will be sufficient for DVT prophylaxis. Consult Attestations 2 Medical Necessity Statement: Patient will require admission for more than 2 midnights with concerns of acute limb ischemia, acute kidney injury with high anion gap metabolic acidosis, hyperkalemia Critical Care Time: The high probability of a clinically significant, sudden or life threatening deterioration of the patient's [cardiac, renal, GI] system(s) required my full and direct attention, intervention and personal management. The critical care time is as shown. This time is in addition to time spent performing any reported procedures but includes the following: [x] Data and vital sign review and interpretation [x] Patient assessment, examination and intervention [x] Documentation [x] Medication orders and management Critical Care Time (min): 70 Coding Level of Care Code Critical Care >/= 30 minutes Critical care time (in minutes): 70 The high probability of a clinically significant, sudden or life threatening deterioration, as referenced in this documentation, required my full and direct attention, intervention and personal management. The critical care time shown is in addition to time spent performing any reported separately billable procedures and includes the following: [x] Data and vital sign review and interpretation [x ] Patient assessment, examination and intervention [x] Medication orders and management [x] Patient/Family updates as able [x] Care Coordination and Documentation. Other Coding Information This patient has a high probability of clinically significant, sudden or life threatening deterioration of the patient's (neurological/pulmonary/cardiac/renal/ID/endocrine) systems required my full, direct attention, the highest level of physician preparedness for urgent intervention and personal management. I managed/supervised life or organ supporting interventions that required frequent physician assessment. I devoted my full attention in the ICU to the direct care of this patient for the period of time indicated above. Time I spent with family or surrogate(s) is included only if the patient was incapable of providing necessary information or participating in decision making. This time includes the following services provided: Telemetry review Hemodynamic interpretation, assessment and management Review and interpretation of CXR Review and interpretation of lab values Review and interpretation of microbiologic data and culture results Review of medications and administration Review and interpretation of Nutrition requirements and management Discussion of management with other consultants and services Clinical update to family members Diagnoses Acute lower limb ischemia I99.8 Ischemic leg I99.8 Acute kidney injury N17.9 Hyperkalemia E87.5 High anion gap metabolic acidosis E87.29 Hyponatremia E87.1 Hyperglycemia R73.9 Diabetes mellitus E11.9 Other cirrhosis of liver K74.69 Hepatic cirrhosis type: other cirrhosis Esophageal varices I85.00 Stage 3b chronic kidney disease (CKD) N18.32
[2024-03-04] MEDS: morphine 4 mg/mL SDV 1 mL 2 MG IVP (18:13)
[2024-03-04] MEDS: pantoprazole 40 mg SDV IVP (18:14)
[2024-03-04] MEDS: piperacillin-tazobactam 3.375 GM in sodium chloride 0.9% (plus) 50 ML IV (18:14)
[2024-03-04] MEDS: sodium chloride 0.9% 1,000 ML 100 ML IV (18:23)
[2024-03-04 18:44] LABS: Ketone (Acetest) Serum Negative (Negative)
[2024-03-04 18:49] LABS: Lactic Sepsis W/Reflex 2.9 mmol/L (0.5-2.2)
[2024-03-04 18:53] LABS: Reflex Lactate Order REFLEX LACTIC ORDERD
[2024-03-04 18:58] LABS: Creatine Phosphokinase 123 U/L (26-192)
[2024-03-04 19:00] LABS: Procalcitonin 1.14 ng/mL (0-0.5); Thyroid Stimulating Hormone 1.26 uIU/mL (0.27-4.20)
[2024-03-04 19:11] LABS: Alanine Aminotransferase 48 U/L (0-33); Albumin Level 3.4 g/dL (3.5-5.2); Alkaline Phosphatase 307 U/L (35-105); Anion Gap 21.1 (5-19); Aspartate Amino Transferase 49 U/L (0-32); Blood Urea Nitrogen 52 mg/dL (8-23); Calcium 9.4 mg/dL (8.5-10.5); Carbon Dioxide 17 mmol/L (22-29); Chloride 97 mmol/L (98-107); Creatinine Clr Calc Pharmacy 42.4333; Globulin 4.3 g/dL (1.3-4.6); Glomerular Filtration Rate 30.7 mL/min (90-130); Glucose 475 mg/dL (65-115); Osmolality Calculated 303 mOsm/kg (285-295); Potassium 6.1 mmol/L (3.5-5.1); Sodium 129 mmol/L (136-145); Total Bilirubin 2.2 mg/dL (0.15-1.2); Total Protein 7.7 g/dL (6.6-8.7)
[2024-03-04] MEDS: HYDROcodone-acetaminophen 5-325 mg Tablet 1 TAB PO (19:54)
[2024-03-04] MEDS: ALPRAZolam 0.5 mg Tablet 0.25 MG PO (19:55)
[2024-03-04] MEDS: atorvastatin 40 mg Tablet 80 MG PO (20:18)
[2024-03-04] MEDS: sodium polystyrene sulfonate 15 gm/60 mL Btl 30 GM PO (20:19)
[2024-03-04] MEDS: lactulose oral liq 20 gm/30 mL UDC 30 GM PO (20:19)
[2024-03-04] MEDS: sodium bicarbonate 8.4% 1 mEq/mL 50mL Syr 100 MEQ IVP (20:20)
[2024-03-04] MEDS: calcium gluconate 0.9% NaCL 1 GM/50 ML PREMIX IV (20:20)
[2024-03-04] MEDS: INSULIN REGULAR IN 0.9 % NACL 100 UNIT/100 ML BAG 9.5 UNIT IV (20:25)
[2024-03-04 20:34] LABS: Partial Thromboplastin Time 165.6 SECONDS (23.9-36.7)
[2024-03-04 20:40] LABS: ABG PCO2 38.3 mmHg (35-45); ABG PH Result 7.33 (7.35-7.45); Arterial Blood Gas Hematocrit 32.6 % (37-47); Base Excess ABG -5.3 mmol/L (-2.0-2.0); Blood Gas Operator Identificat JDB; Blood Gas Sample Site Brachial, right; Blood Gas Sample Type Arterial; Carboxyhemoglobin 1.5 %THgb (0.4-20.1); HCO3 ABG 20.2 mmol/L (22-26); HGB O2 Sat 93.2 % (95-100); Ionized Calcium Level - ABG 1.2 mmol/L (1.1-1.4); Oxygen Device ROOM AIR; Oxygen Saturation ABG 95.6; PO2 ABG 77.7 mmHg (80.0-100.0); Potassium Level - ABG 6.3 mmol/L (3.5-5.0); Total Hemoglobin 10.6 g/dL (12-16)
[2024-03-04 23:21] LABS: Lactic Acid level (Lactate) 3.3 mmol/L (0.5-2.2)
[2024-03-04 23:22] LABS: Anion Gap 22.9 (5-19); Blood Urea Nitrogen 52 mg/dL (8-23); Calcium 8.9 mg/dL (8.5-10.5); Carbon Dioxide 20 mmol/L (22-29); Chloride 98 mmol/L (98-107); Creatinine Clr Calc Pharmacy 34.3508; Glucose 412 mg/dL (65-115); Osmolality Calculated 313 mOsm/kg (285-295); Potassium 4.9 mmol/L (3.5-5.1); Sodium 136 mmol/L (136-145)
[2024-03-04 23:38] LABS: Bilirubin Urine Negative (Negative); Blood Urine 2+ (Negative); Glucose Urine UA 3+ (Normal); Ketones Urine Negative (Negative); Leukocyte Esterase Urine 1+ (Negative); Nitrate Urine Negative (Negative); Protein Urine Negative (Negative); Urine Appearance Clear (CLEAR); Urine Color Yellow (Yellow); Urobilinogen Urine 0.2 mg/dL (Negative)
[2024-03-04] MEDS: sodium chloride 0.9% 500 ML 999 ML IV (23:42)
[2024-03-04 23:43] LABS: Add Urine Microscopic? YES; Bacteria Urine Trace /hpf; Hyaline Casts Urine 2.05 /lpf; Squamous Epithelial Cell Urine 0-5 /hpf (0-5); Universal Test for UA Present (0); WBC Urine 21-50 /hpf (0-5)
[2024-03-04 23:54] LABS: Specific Gravity, Urine 1.031 (1.005-1.030)
[2024-03-04 23:55] LABS: Add Urine Culture? Yes
[2024-03-05] VITALS (52 sets, daily range): BP systolic 83–151; BP diastolic 35–90; PULSE 60–71; RESP 10–21; TEMP 36.4–37.2; O2SAT 93–100; BMI 35.9; BMI 36.0
[2024-03-05 00:47] LABS: MRSA PCR OZH (swab) NOT DETECTED (Not Detecte)
[2024-03-05] MEDS: piperacillin-tazobactam 3.375 GM in sodium chloride 0.9% (plus) 50 ML IV ×3 (00:50→17:06)
[2024-03-05 01:14] LABS: Partial Thromboplastin Time 34.3 SECONDS (23.9-36.7)
[2024-03-05] MEDS: dextrose 5%-sod chloride 0.9% 1,000 ML 150 ML IV (01:27)
[2024-03-05] MEDS: INSULIN REGULAR IN 0.9 % NACL 100 UNIT/100 ML BAG 12.5 UNIT IV (02:56)
[2024-03-05] MEDS: fentaNYL 50 mcg/mL INJ 2mL IVP (03:15)
[2024-03-05] MEDS: pantoprazole 40 mg SDV IVP ×2 (04:54→17:06)
[2024-03-05 05:01] LABS: Basophils % 0.5 %; Eosinophils # 0.1 10^3/uL (0.0-0.8); Eosinophils % 1.1 %; Hematocrit 31.7 % (36-47); Lymphocytes # 1.1 10^3/uL (0.8-4.8); Lymphocytes % 13.9 %; Mean Corpuscular HGB Conc 30.9 g/dL (30-55); Mean Corpuscular Hemoglobin 27.1 pg (27-33); Mean Corpuscular Volume 87.6 fl (85-98); Monocytes # 1.3 10^3/uL (0.2-0.9); Monocytes % 15.9 %; Neutrophils % 68.1 %; Nucleated Red Blood Cells % 0 %; Platelet Count 143 10^3/cmm (157-399); Red Blood Count 3.62 10^6/uL (3.85-5.65); Red Cell Distribution Width 17.4 % (12.1-15.1); White Blood Count 8.22 10^3/uL (3.29-11.43)
[2024-03-05 05:19] LABS: Alanine Aminotransferase 44 U/L (0-33); Albumin Level 3.3 g/dL (3.5-5.2); Alkaline Phosphatase 263 U/L (35-105); Aspartate Amino Transferase 65 U/L (0-32); Blood Urea Nitrogen 50 mg/dL (8-23); Calcium 8.8 mg/dL (8.5-10.5); Carbon Dioxide 23 mmol/L (22-29); Chloride 99 mmol/L (98-107); Creatinine Clr Calc Pharmacy 36.0683; Glomerular Filtration Rate 25.4 mL/min (90-130); Glucose 70 mg/dL (65-115); Magnesium 2.7 mg/dL (1.7-2.3); Osmolality Calculated 294 mOsm/kg (285-295); Phosphorus 5.1 mg/dL (2.5-4.5); Sodium 136 mmol/L (136-145); Total Bilirubin 1.7 mg/dL (0.15-1.2); Total Protein 7.3 g/dL (6.6-8.7)
[2024-03-05 05:22] LABS: Chol HDL Ratio 5.27 mg/dL (0.0-4.40); Cholesterol 195 mg/dL (0-200); HDL Cholesterol 37 mg/dL (60-100); LDL Cholesterol Calculated 130 mg/dL (50-129); LDL HDL Ratio 3.51 RATIO (0.00-3.22); Triglycerides 140 mg/dL (0-150)
[2024-03-05 05:25] LABS: Procalcitonin 2.12 ng/mL (0-0.5)
[2024-03-05 05:56] LABS: Glucose Point of Care 84 mg/dL (70-110)
[2024-03-05 06:02] LABS: Glucose Point of Care 100 mg/dL (70-110)
[2024-03-05 07:10] LABS: Glucose Point of Care 116 mg/dL (70-110)
[2024-03-05 07:29] LABS: Glucose Point of Care 457 mg/dL (70-110)
[2024-03-05 07:29] LABS: Glucose Point of Care 199 mg/dL (70-110)
[2024-03-05 07:29] LABS: Glucose Point of Care 77 mg/dL (70-110)
[2024-03-05 07:29] LABS: Glucose Point of Care 109 mg/dL (70-110)
[2024-03-05 07:29] LABS: Glucose Point of Care 357 mg/dL (70-110)
[2024-03-05 07:29] LABS: Glucose Point of Care 454 mg/dL (70-110)
[2024-03-05 07:29] LABS: Glucose Point of Care 457 mg/dL (70-110)
[2024-03-05] MEDS: sodium chloride 0.9% 1,000 ML 100 ML IV (08:16)
[2024-03-05 08:25] LABS: Glucose Point of Care 126 mg/dL (70-110)
[2024-03-05] MEDS: aspirin 81 mg EC Tablet PO (08:53)
[2024-03-05] MEDS: clopidogrel 75 mg Tablet PO (08:53)
[2024-03-05] MEDS: rifaximin 200 mg Tablet 600 MG PO ×2 (08:53→17:41)
[2024-03-05] MEDS: lactulose oral liq 20 gm/30 mL UDC 30 GM PO (08:54)
--- NOTE | 2024-03-05 10:22 | PC.NURSE ---
Spoke with regarding heparin drip. Verbal to DC order for heparin drip.
[2024-03-05 12:57] LABS: Glucose Point of Care 307 mg/dL (70-110)
[2024-03-05] MEDS: pantoprazole DR 40 mg Tablet PO (12:58)
[2024-03-05] MEDS: rivaroxaban 10 mg Tablet PO (12:58)
[2024-03-05] MEDS: insulin lispro 100 unit/1 mL SUBCUT ×3 (12:58→22:16)
[2024-03-05] MEDS: morphine 4 mg/mL SDV 1 mL 2 MG IVP (13:36)
--- NOTE | 2024-03-05 13:55 | PC.NURSE ---
Patient and visitors at bedside educated on finger stick for sliding scale insulin dosage. Educated patient and visitors at bedside regarding diabetic renal diet and sliding scale insulin. Patient refused afternoon meal for alternate tray, family brought [employer] fast food to bedside.
--- NOTE | 2024-03-05 14:50 | P.PN_ITS ---
Subjective 2 Subjective: No acute vents overnight. Today morning seen with family at bedside. Patient states she is feeling a lot better. Denies any nausea, vomiting, headache. More awake and alert than yesterday. Documented urine output appreciated. Vitals/I&O/Wt Last Vital Signs Temp 89.6 F L 03/05/24 13:30 Pulse 61 03/05/24 14:30 Resp 18 03/05/24 14:30 BP 148/84 03/05/24 14:30 Pulse Ox 99 03/05/24 14:30 O2 Del Method Room Air 03/05/24 14:30 03/04/24 03/05/24 03/05/24 22:59 06:59 14:59 Intake Total 188.182 / 188.182 673.358 / 076.146 8156.967 / 1431.967 Output Total 2350 / 2350 Balance 188.182 / 188.182 -1676.642 / -5725.068 3485.967 / 1431.967 Weight last 48 hrs Weight 101 kg Weight 102 kg Weight 97.069 kg Physical Exam 2 Narrative: General: No acute distress, AO x3, HEENT: PERRLA, pupils bilaterally equal and reactive Chest: Normal vesicular breath sounds, no added sounds, equal good air entry bilaterally CVS: S1-S2 regular, no murmurs, no tachycardia, no gallops, no rubs Abdomen: Soft, nontender, no organomegaly, bowel sounds present Neuro: No focal deficits, no facial deformity, Extremity: Bilateral lower limb cold to touch, palpable DP on the left leg Urinary Catheter Management: Rodas: Cath Placed During This Visit: yes Reason for Continuing Indwelling Catheter: Accurate Measurement of Urinary Output in Critically Ill Patients Urinary Catheter Date of Insertion: 03/04/24 Data 03/05/24 04:00 03/05/24 04:00 Micro: Microbiology 03/04/24 14:13 Blood Culture - Preliminary Blood SPECIMEN COLLECTED 03/04/24 14:10 Blood Culture - Preliminary Blood SPECIMEN COLLECTED A&P Assessment and plan (1) Acute lower limb ischemia: Post balloon angioplasty and peripheral stenting of common femoral. Aspirin, Plavix, statin. Medical management as per cardiology team. Neurovascular check every 4 hour. Switch to Xarelto as per cardiology team. Morphine 2 mg 4 hours as needed, [place] 5 mg with 6-hour as needed for pain. Hold off on home dose of morphine as needed for now. Ambulate as per primary team. Physical therapy once okay. (2) Ischemic leg: (3) Acute kidney injury: Most likely in setting of acute limb ischemia. Does have history of CKD with baseline creatinine of around 1.6. Patient also takes ARB, spironolactone, Lasix at home. Did undergo peripheral angiogram with angioplasty on admission. With concerns for DKA on admission. Hyponatremia, hyperkalemia and anion gap metabolic acidosis has so far resolved. Appreciate CPK level. Medical reconciliation done for nephrotoxic drugs. Hold off on ARB, NSAID, spironolactone for now. Rodas catheter. Normal saline 100 cc/h. Strict input output charting, daily weights. Repeat BMP in afternoon. Given concerns for acute kidney injury, acute limb ischemia, peripheral angiography with plasty there is a high risk of worsening renal functions going forward. We did discuss in detail with the patient and family that for now we will have to continue to monitor renal functions going forward and if needed might have to consult nephrology for possible dialysis. They are agreeable With current treatment plan. (4) Diabetes mellitus: A1c pending. DKA resolved. Discontinue insulin drip. Start on insulin sliding scale at moderate dose protocol. Depending on the insulin requirement in next 24 hours we will start on Lantus. At home takes glargine 50 units twice daily along with sliding scale. Complains of labile blood sugars at home. Will continue to monitor. (5) Hyperkalemia: Resolved. Continue to monitor. (6) High anion gap metabolic acidosis: Resolved. In setting of DKA on admission. Repeat in afternoon. (7) Hyponatremia: Resolved. (8) Hyperglycemia: With DKA on admission. (9) Cirrhosis: In setting of CASTANON. Associated with esophageal varices. Continue with lactulose and rifaximin at home. Protonix 40 mg twice daily. Hold off on spironolactone for now. Qualifiers: Hepatic cirrhosis type: other cirrhosis Qualified Code(s): K74.69 - Other cirrhosis of liver (10) Esophageal varices: Continue to monitor. Protonix twice daily. (11) Stage 3b chronic kidney disease (CKD): (12) DKA (diabetic ketoacidosis): Resolved most likely in setting of acute limb ischemia on admission. Plan Patient does have some leukocytosis. Most likely in setting of acute limb ischemia on admission. Low concerns for infectious process for now. Appreciate procalcitonin, lactic, CPK, urinalysis. Follow-up blood cultures. Continue with empiric Zosyn for now. If remains hemodynamically stable and afebrile for next 24 hours will discontinue antibiotics in next 24 hours. Hypertension: Goal blood pressure less than 140/90 mmHg over 65. Patient takes carvedilol and irbesartan at home. Currently on hold. Restart as per goal blood pressure in next 24 hours. Will like to continue hold off on I[place] Tony for now. Full code Carb consistent cardiac diet Protonix for PUD prophylaxis Xarelto will be sufficient for DVT prophylaxis. Transfer to [facility] once primary team. Care discussed in detail with patient's nurse at bedside. Thank you for involving us in care of Ms. Whiteside. Please call with any questions. Attestations 2 Medical Necessity Statement*: Requires further hospitalization for management of acute kidney injury with resolution of hyponatremia, hyperkalemia, DKA in a patient initially for acute limb ischemia post angioplasty. Critical Care Time: The high probability of a clinically significant, sudden or life threatening deterioration of the patient's [renal, endocrine, cardiac] system(s) required my full and direct attention, intervention and personal management. The critical care time is as shown. This time is in addition to time spent performing any reported procedures but includes the following: [x] Data and vital sign review and interpretation [x] Patient assessment, examination and intervention [x] Documentation [x] Medication orders and management Critical Care Time (min): 80 Coding Level of Care Code Critical Care >/= 30 minutes Critical care time (in minutes): 80 The high probability of a clinically significant, sudden or life threatening deterioration, as referenced in this documentation, required my full and direct attention, intervention and personal management. The critical care time shown is in addition to time spent performing any reported separately billable procedures and includes the following: [x] Data and vital sign review and interpretation [x ] Patient assessment, examination and intervention [x] Medication orders and management [x] Patient/Family updates as able [x] Care Coordination and Documentation. Diagnoses Acute lower limb ischemia I99.8 Ischemic leg I99.8 Acute kidney injury N17.9 Diabetes mellitus E11.9 Hyperkalemia E87.5 High anion gap metabolic acidosis E87.29 Hyponatremia E87.1 Hyperglycemia R73.9 Other cirrhosis of liver K74.69 Hepatic cirrhosis type: other cirrhosis Esophageal varices I85.00 Stage 3b chronic kidney disease (CKD) N18.32 DKA (diabetic ketoacidosis) E11.10
[2024-03-05 15:59] LABS: Anion Gap 22.6 (5-19); Blood Urea Nitrogen 44 mg/dL (8-23); Calcium 7.8 mg/dL (8.5-10.5); Carbon Dioxide 19 mmol/L (22-29); Chloride 94 mmol/L (98-107); Creatinine Clr Calc Pharmacy 34.1709; Glucose 411 mg/dL (65-115); Osmolality Calculated 301 mOsm/kg (285-295); Potassium 4.6 mmol/L (3.5-5.1); Sodium 131 mmol/L (136-145)
--- NOTE | 2024-03-05 16:01 | PC.NURSE ---
Wound: Patient reports feeling, a pressure injury forming on her buttock. Thorough assessment found an approximate 10mm circular scabbed area that appears to be a healing pressure injury. Patient states she has been sitting a lot more than usual at home due to leg pain.
--- NOTE | 2024-03-05 16:08 | USCV_ITS ---
Jacquelin Whiteside Age: 58 Gender: F : 1965 Exam Date: 03/05/2024 07:07 Ordering Phys: Cooper Saleem MD Technologist: Heladio Golden Exam Location: [facility] [place] Indication: chf BP: 89 / 44 HR: 58 Rhythm: Sinus Technical Quality: Adequate MEASUREMENTS (Male / Female) Normal Values 2D ECHO LV Diastolic Diameter PLAX 5.0 cm 4.2 - 5.9 / 3.9 - 5.3 cm IVS Diastolic Thickness 0.9 cm 0.6 - 1.0 / 0.6 - 0.9 cm IVS Systolic Thickness 1.2 cm LVPW Diastolic Thickness 1.6 cm 0.6 - 1.0 / 0.6 - 0.9 cm LVPW Systolic Thickness 1.6 cm LVOT Diameter 2.0 cm LV Ejection Fraction 2D Teich 58.1 % LV Ejection Fraction MOD 4C 75.8 % LV Ejection Fraction MOD 2C 71.5 % LV Ejection Fraction 2C AL 72.5 % LA Diameter 4.2 cm RA Systolic Volume 4C AL 48.9 ml RA Systolic Volume 4C MOD 48.8 ml LA Sys Volume AL 74.1 cm cubed LA Sys Volume Index AL 34.8 cm cubed/m squared Aorta at Sinotubular Diameter 2.7 cm IVC Diameter 1.9 cm M-MODE LA Ao Ratio MM 1.2 AV Cusp Separation MM 1.8 cm DOPPLER AV Peak Velocity 139.0 cm/s LVOT Peak Velocity 100.0 cm/s AV Area Cont Eq vti 2.2 cm squared AV Area Cont Eq pk 2.4 cm squared MV Peak Velocity 95.0 cm/s MV Area PHT 5.1 cm squared Mitral E to A Ratio 1.6 TV Peak Velocity 305.0 cm/s TR Peak Velocity 334.0 cm/s TR Peak Gradient 44.6 mmHg TR Mean Velocity 280.0 cm/s TR Mean Gradient 32.5 mmHg TR Velocity Time Integral 107.3 cm PV Peak Velocity 111.0 cm/s RV Ejection Time 0.3 s FINDINGS Left Ventricle Normal left ventricular size, systolic function and wall thickness, with no regional wall motion abnormalities. Left ventricular ejection fraction is estimated at 60 %. Normal diastolic function. Right Ventricle The right ventricle is normal in size and function. Right Atrium The right atrium is normal in size. Left Atrium Mildly increased left atrial size. Mitral Valve Moderately thickened mitral valve. No mitral valve stenosis. Mild mitral valve regurgitation. Aortic Valve Mild aortic valve calcification. No aortic valve stenosis. Trace aortic valve regurgitation. Tricuspid Valve Structurally normal tricuspid valve without significant stenosis or regurgitation. Pulmonary artery systolic pressure is normal. Pulmonic Valve Structurally normal pulmonic valve without significant stenosis. There is no pulmonic regurgitation. Pericardium Normal pericardium without effusion. Aorta Normal ascending aorta dimension. IVC The inferior vena cava appears normal. CONCLUSIONS Normal left ventricular size, systolic function and wall thickness, with no regional wall motion abnormalities. Left ventricular ejection fraction is estimated at 60 %. Normal diastolic function. There is no pericardial effusion. No significant valve abnormalities. Right atrial pressure is around 5 mm of mercury. Humphrey Noland MD (Electronically Signed) Final Date: 06 March 2024 17:21 S
[2024-03-05] MEDS: sodium chloride 0.9% 1,000 ML 999 ML IV (16:26)
[2024-03-05] MEDS: insulin regular-human 100 units/1 mL 10 UNIT IVP ×2 (17:07→20:45)
--- NOTE | 2024-03-05 17:07 | PM.PN ---
Subjective Subjective: No overnight event. Patient did well. Left leg appeared to be warm and moist, she is able to wiggle the toes and feel the sensations. Renal function stayed at baseline, blood sugar has improved Electrolytes has improved specially potassium has normalized Vitals/I&O/Wt Last Vital Signs Temp 98.6 F 03/05/24 13:30 Pulse 65 03/05/24 16:00 Resp 21 H 03/05/24 16:00 BP 134/50 03/05/24 16:00 Pulse Ox 98 03/05/24 16:00 O2 Del Method Room Air 03/05/24 16:00 03/05/24 03/05/24 03/05/24 06:59 14:59 22:59 Intake Total 673.358 / 467.146 6019.967 / 1431.967 Output Total 2350 / 2350 900 / 900 Balance -1676.642 / -7287.841 7388.967 / 1431.967 -900 / 531.967 Weight last 48 hrs Weight 223 lb 7 oz Weight 222 lb 10.67 oz Weight 224 lb 13.944 oz Weight 214 lb Physical Exam Const: COMMON NORMALS: alert OTHER: GENERAL: Patient is alert, awake and oriented x3. HEART: Regular S1 and S2. No murmur, rub or gallop. LUNGS: Clear to auscultate bilaterally. CENTRAL NERVOUS SYSTEM: Grossly nonfocal. EXTREMITIES: Lower extremities with out edema, left leg warm moist with palpable anterior posterior tibial Resp: COMMON NORMALS: clear to auscultation bilaterally AUSCULTATION: clear to auscultation bilaterally Neuro: SENSORIUM/ORIENTATION: Yes alert Urinary Catheter Management: Rodas: Cath Placed During This Visit: yes Reason for Continuing Indwelling Catheter: Accurate Measurement of Urinary Output in Critically Ill Patients Urinary Catheter Date of Insertion: 03/04/24 Data 03/05/24 04:00 03/05/24 15:07 Micro: Microbiology 03/04/24 14:13 Blood Culture - Preliminary Blood NEGATIVE TO DATE 03/04/24 14:10 Blood Culture - Preliminary Blood NEGATIVE TO DATE A&P Assessment and plan (1) Acute lower limb ischemia: Status post thrombectomy balloon angioplasty and stent placement at the left common femoral artery with excellent angiographic result. Patient leg is warm moist has both pulses palpable. Continue aspirin statin and Plavix add Xarelto for now because of high risk for thromboembolic phenomenon thrombosis. Plan to stop Xarelto as patient carry history of cirrhosis would like to rule out esophageal varices.. (2) CAD (coronary artery disease): Patient is stable Qualifiers: Coronary Disease-Associated Artery/Lesion type: [place] artery [place] vs. transplanted heart: [place] heart Associated angina: without angina Qualified Code(s): I25.10 - Atherosclerotic heart disease of [place] coronary artery without angina pectoris (3) Thrombocytopenia: Continue to monitor appear to be stable (4) DKA (diabetic ketoacidosis): As per medicine treatment will continue (5) Atrial fibrillation: Appear to be in sinus rhythm continue current management patient was not on anticoagulation due to possible history of cirrhosis, since she is high risk for thromboembolic phenomena therefore at this point we have started patient on low-dose Xarelto 10 mg continue to monitor closely for GI bleed, may need endoscopy to rule out esophageal varices Qualifiers: Atrial fibrillation type: paroxysmal Qualified Code(s): I48.0 - Paroxysmal atrial fibrillation (6) CKD (chronic kidney disease): Stable, patient was given IV fluid, continue to monitor Plan Patient require continuation of hospitalization for above defined care. She can move both of the unit Attestations Medical Necessity Statement*: require continuation hospitalization for above defined care Coding Level of Care Code Acute Code for [facility] Fwd Diagnoses Acute lower limb ischemia I99.8 Coronary artery disease involving [place] coronary artery of [place] heart without angina pectoris I25.10 Coronary Disease-Associated Artery/Lesion type: [place] artery [place] vs. transplanted heart: [place] heart Associated angina: without angina Thrombocytopenia D69.6 DKA (diabetic ketoacidosis) E11.10 Paroxysmal atrial fibrillation I48.0 Atrial fibrillation type: paroxysmal CKD (chronic kidney disease) N18.9
[2024-03-05] MEDS: sodium chloride 0.9% 1,000 ML 150 ML IV (17:31)
[2024-03-05] MEDS: insulin glargine 100 units/1 mL 30 UNIT SUBCUT (17:42)
[2024-03-05 19:11] LABS: Anion Gap 17.5 (5-19); Blood Urea Nitrogen 44 mg/dL (8-23); Calcium 7.7 mg/dL (8.5-10.5); Carbon Dioxide 18 mmol/L (22-29); Chloride 95 mmol/L (98-107); Creatinine Clr Calc Pharmacy 37.8374; Glucose 446 mg/dL (65-115); Osmolality Calculated 292 mOsm/kg (285-295); Potassium 4.5 mmol/L (3.5-5.1); Sodium 126 mmol/L (136-145)
[2024-03-05 19:21] LABS: Estmated Average Glucose 283; Hemoglobin A1C 11.5 % (4.0-6.0)
[2024-03-05 20:02] LABS: Glucose Point of Care 413 mg/dL (70-110)
[2024-03-05 20:36] LABS: Glucose Point of Care 519 mg/dL (70-110)
[2024-03-05 20:36] LABS: Glucose Point of Care 520 mg/dL (70-110)
[2024-03-05] MEDS: atorvastatin 40 mg Tablet 80 MG PO (20:45)
[2024-03-05] MEDS: lactulose oral liq 20 gm/30 mL UDC 10 GM PO (20:46)
[2024-03-05 22:14] LABS: Glucose Point of Care 373 mg/dL (70-110)
[2024-03-06] VITALS (33 sets, daily range): BP systolic 122–179; BP diastolic 45–76; PULSE 60–75; RESP 12–21; TEMP 36.5–37.1; O2SAT 89–100; BMI 36.8; BMI 38.2
[2024-03-06] MEDS: ALPRAZolam 0.5 mg Tablet 0.25 MG PO ×2 (00:28→22:33)
[2024-03-06] MEDS: temazepam 15 mg Capsule PO ×2 (00:28→20:49)
[2024-03-06] MEDS: morphine 4 mg/mL SDV 1 mL 2 MG IVP ×3 (00:31→16:54)
[2024-03-06] MEDS: piperacillin-tazobactam 3.375 GM in sodium chloride 0.9% (plus) 50 ML IV ×2 (00:36→08:52)
[2024-03-06] MEDS: sodium chloride 0.9% 1,000 ML 150 ML IV ×2 (00:38→07:31)
[2024-03-06 02:23] LABS: Glucose Point of Care 283 mg/dL (70-110)
[2024-03-06] MEDS: insulin lispro 100 unit/1 mL SUBCUT ×6 (02:27→22:18)
[2024-03-06 04:04] LABS: Glucose Point of Care 225 mg/dL (70-110)
[2024-03-06] MEDS: pantoprazole 40 mg SDV IVP ×2 (04:11→16:34)
[2024-03-06 05:40] LABS: Basophils % 0.4 %; Eosinophils # 0.1 10^3/uL (0.0-0.8); Eosinophils % 1.4 %; Hematocrit 27.7 % (36-47); Lymphocytes # 0.9 10^3/uL (0.8-4.8); Lymphocytes % 13.1 %; Mean Corpuscular HGB Conc 31.8 g/dL (30-55); Mean Corpuscular Hemoglobin 27.5 pg (27-33); Mean Corpuscular Volume 86.6 fl (85-98); Mean Platelet Volume 11.6 fL (7.4-10.4); Monocytes # 0.9 10^3/uL (0.2-0.9); Monocytes % 12.3 %; Neutrophils # 5.18 10^3/uL (1.8-7.7); Neutrophils % 72.4 %; Nucleated Red Blood Cells % 0 %; Platelet Count 101 10^3/cmm (157-399); Red Cell Distribution Width 17.2 % (12.1-15.1); White Blood Count 7.16 10^3/uL (3.29-11.43)
[2024-03-06 06:02] LABS: Alanine Aminotransferase 44 U/L (0-33); Albumin Level 2.8 g/dL (3.5-5.2); Alkaline Phosphatase 232 U/L (35-105); Anion Gap 16.9 (5-19); Aspartate Amino Transferase 125 U/L (0-32); Blood Urea Nitrogen 38 mg/dL (8-23); Calcium 7.6 mg/dL (8.5-10.5); Carbon Dioxide 20 mmol/L (22-29); Chloride 101 mmol/L (98-107); Creatinine Clr Calc Pharmacy 37.8374; Globulin 3.3 g/dL (1.3-4.6); Glucose 183 mg/dL (65-115); Osmolality Calculated 292 mOsm/kg (285-295); Potassium 3.9 mmol/L (3.5-5.1); Sodium 134 mmol/L (136-145); Total Bilirubin 1.3 mg/dL (0.15-1.2); Total Protein 6.1 g/dL (6.6-8.7)
[2024-03-06 06:08] LABS: Glucose Point of Care 160 mg/dL (70-110)
[2024-03-06 08:43] LABS: Glucose Point of Care 169 mg/dL (70-110)
[2024-03-06] MEDS: rivaroxaban 10 mg Tablet PO (08:51)
[2024-03-06] MEDS: clopidogrel 75 mg Tablet PO (08:51)
[2024-03-06] MEDS: aspirin 81 mg EC Tablet PO (08:51)
[2024-03-06] MEDS: lactulose oral liq 20 gm/30 mL UDC 10 GM PO ×2 (08:52→14:55)
[2024-03-06] MEDS: insulin glargine 100 units/1 mL 30 UNIT SUBCUT (08:52)
[2024-03-06] MEDS: rifaximin 200 mg Tablet 600 MG PO (08:52)
[2024-03-06] MEDS: insulin glargine 100 units/1 mL 20 UNIT SUBCUT (10:18)
[2024-03-06 10:32] LABS: Glucose Point of Care 340 mg/dL (70-110)
[2024-03-06 12:09] LABS: Glucose Point of Care 295 mg/dL (70-110)
--- NOTE | 2024-03-06 13:07 | PC.NURSE ---
Report called to CSU nurse Simon. Patient transferred to room 104 via wheelchair on room air. All belongings transferred with patient and her .
--- NOTE | 2024-03-06 13:53 | P.PN_ITS ---
Subjective 2 Subjective: No acute events overnight. Today morning seen laying comfortably in bed in ICU. Spouse at bedside. Patient was sitting up in chair later in the day. Complaining of severe weakness. Denies any nausea, vomiting, headache. Has remained hemodynamically stable and afebrile on room air. Blood pressure better today. Urine output of more than 3000 in the last 24 hours. Vitals/I&O/Wt Last Vital Signs Temp 97.9 F 03/06/24 10:00 Pulse 66 03/06/24 12:30 Resp 17 03/06/24 10:00 BP 160/73 03/06/24 13:00 Pulse Ox 98 03/06/24 12:30 O2 Del Method Room Air 03/06/24 13:00 03/05/24 03/06/24 03/06/24 22:59 06:59 14:59 Intake Total 3305 / 4736.967 1530 / 6266.967 2512.5 / 2512.5 Output Total 1550 / 1550 1800 / 3350 650 / 650 Balance 1755 / 3186.967 -270 / 2916.967 1862.5 / 1862.5 Weight last 48 hrs Weight 107.671 kg Weight 103.5 kg Weight 101.35 kg Weight 101 kg Weight 102 kg Physical Exam 2 Narrative: General: No acute distress, AO x3, HEENT: PERRLA, pupils bilaterally equal and reactive Chest: Normal vesicular breath sounds, no added sounds, equal good air entry bilaterally CVS: S1-S2 regular, no murmurs, no tachycardia, no gallops, no rubs Abdomen: Soft, nontender, no organomegaly, bowel sounds present Neuro: No focal deficits, no facial deformity, Extremity: Bilateral lower limb Warm to touch, good capillary refill Urinary Catheter Management: Rodas: Cath Placed During This Visit: yes Reason for Continuing Indwelling Catheter: Accurate Measurement of Urinary Output in Critically Ill Patients Urinary Catheter Date of Insertion: 03/04/24 Data 03/06/24 04:56 03/06/24 04:56 Micro: Microbiology 03/04/24 22:50 Urine Culture - Preliminary Urine,Clean Catch Yeast species 03/04/24 14:13 Blood Culture - Preliminary Blood NEGATIVE TO DATE 03/04/24 14:10 Blood Culture - Preliminary Blood NEGATIVE TO DATE A&P Assessment and plan (1) Acute lower limb ischemia: Post balloon angioplasty and peripheral stenting of common femoral. Aspirin, Plavix, statin. Medical management as per cardiology team. Neurovascular check every 4 hour. Switch to Xarelto as per cardiology team. Morphine 2 mg 4 hours as needed, [place] 5 mg with 6-hour as needed for pain. Hold off on home dose of morphine as needed for now. Ambulate as per primary team. Physical therapy once okay. (2) Ischemic leg: (3) Acute kidney injury: Most likely in setting of acute limb ischemia. Does have history of CKD with baseline creatinine of around 1.6. Patient also takes ARB, spironolactone, Lasix at home. Did undergo peripheral angiogram with angioplasty on admission. With concerns for DKA on admission. Hyponatremia, hyperkalemia and anion gap metabolic acidosis has so far resolved. Appreciate CPK level. Medical reconciliation done for nephrotoxic drugs. Hold off on ARB, NSAID, spironolactone for now. Rodas catheter. Normal saline 100 cc/h. Strict input output charting, daily weights. Repeat BMP in afternoon. Given concerns for acute kidney injury, acute limb ischemia, peripheral angiography with plasty there is a high risk of worsening renal functions going forward. We did discuss in detail with the patient and family that for now we will have to continue to monitor renal functions going forward and if needed might have to consult nephrology for possible dialysis. They are agreeable With current treatment plan. (4) Diabetes mellitus: A1c pending. DKA resolved. Discontinue insulin drip. Start on insulin sliding scale at moderate dose protocol. Depending on the insulin requirement in next 24 hours we will start on Lantus. At home takes glargine 50 units twice daily along with sliding scale. Complains of labile blood sugars at home. Will continue to monitor. (5) Hyperkalemia: Resolved. Continue to monitor. (6) High anion gap metabolic acidosis: Resolved. In setting of DKA on admission. Repeat in afternoon. (7) Hyponatremia: Resolved. (8) Hyperglycemia: With DKA on admission. (9) Cirrhosis: In setting of [place]. Associated with esophageal varices. Continue with lactulose and rifaximin at home. Protonix 40 mg twice daily. Hold off on spironolactone for now. Qualifiers: Hepatic cirrhosis type: other cirrhosis Qualified Code(s): K74.69 - Other cirrhosis of liver (10) Esophageal varices: Continue to monitor. Protonix twice daily. (11) Stage 3b chronic kidney disease (CKD): (12) DKA (diabetic ketoacidosis): Resolved most likely in setting of acute limb ischemia on admission. Plan Patient does have some leukocytosis. Most likely in setting of acute limb ischemia on admission. Low concerns for infectious process for now. Appreciate procalcitonin, lactic, CPK, urinalysis. Follow-up blood cultures. Continue with empiric Zosyn for now. If remains hemodynamically stable and afebrile for next 24 hours will discontinue antibiotics in next 24 hours. Hypertension: Goal blood pressure less than 140/90 mmHg over 65. Patient takes carvedilol and irbesartan at home. Currently on hold. Restart as per goal blood pressure in next 24 hours. Will like to continue hold off on [place] for now. Full code Carb consistent cardiac diet Protonix for PUD prophylaxis Xarelto will be sufficient for DVT prophylaxis. Transfer to CSU once primary team. Care discussed in detail with patient's nurse at bedside. Thank you for involving us in care of Ms. Whiteside. Please call with any questions. Goal: Renal function stable. Continues to improve. Urine output improving. Continue to monitor BMP daily. Did not transfer out of ICU yesterday because of extreme hyperglycemia later in the evening. Overnight blood sugars are better controlled. Anion gap stable. Change Lantus to home dose of 50 units twice daily. Continue with sliding scale before meals and at bedtime at moderate dose protocol. Monitor blood sugars before meals and at bedtime. Decrease IV fluids to normal saline at 75 cc/h. If oral intake continues to improve can discontinue IV fluids if kidney functions remain stable. Goal blood pressure less than 140/90 mmHg. Blood pressure is elevated. Takes ibersartan at home. Currently not giving Ibersartan in setting of recovering kidney functions. Start on amlodipine 10 mg oral daily. Transfer to CSU. Attestations 2 Medical Necessity Statement*: As per primary team. Diagnoses Acute lower limb ischemia I99.8 Ischemic leg I99.8 Acute kidney injury N17.9 Diabetes mellitus E11.9 Hyperkalemia E87.5 High anion gap metabolic acidosis E87.29 Hyponatremia E87.1 Hyperglycemia R73.9 Other cirrhosis of liver K74.69 Hepatic cirrhosis type: other cirrhosis Esophageal varices I85.00 Stage 3b chronic kidney disease (CKD) N18.32 DKA (diabetic ketoacidosis) E11.10
[2024-03-06] MEDS: amlodipine 10 mg Tablet PO (14:56)
[2024-03-06] MEDS: sodium chloride 0.9% 1,000 ML 75 ML IV (16:42)
[2024-03-06] MEDS: RIFAXIMIN 550 MG 1 EACH PO (18:14)
[2024-03-06] MEDS: insulin glargine 100 units/1 mL 50 UNIT SUBCUT (18:15)
--- NOTE | 2024-03-06 19:13 | P.PN_ITS ---
Subjective 2 Subjective: Patient denies any complaint. Left leg continues to look good, she continues to have good pulse anterior and posterior in the left leg, blood pressure is elevated. Vitals/I&O/Wt Last Vital Signs Temp 98.6 F 03/06/24 16:00 Pulse 60 03/06/24 16:00 Resp 12 03/06/24 16:54 BP 179/76 03/06/24 16:00 Pulse Ox 98 03/06/24 16:54 O2 Del Method Room Air 03/06/24 16:00 03/06/24 03/06/24 03/06/24 06:59 14:59 22:59 Intake Total 1530 / 6266.967 2512.5 / 2512.5 662.5 / 3175.0 Output Total 1800 / 3350 650 / 650 750 / 1400 Balance -270 / 2916.967 1862.5 / 1862.5 -87.5 / 1775.0 Weight last 48 hrs Weight 237 lb 6 oz Weight 228 lb 2.855 oz Weight 223 lb 7 oz Weight 222 lb 10.67 oz Physical Exam 2 Const: COMMON NORMALS: alert OTHER: GENERAL: Patient is alert, awake and oriented x3. HEART: Regular S1 and S2. No murmur, rub or gallop. LUNGS: Clear to auscultate bilaterally. CENTRAL NERVOUS SYSTEM: Grossly nonfocal. EXTREMITIES: Lower extremities with out edema, left leg warm moist with palpable anterior posterior tibial Resp: COMMON NORMALS: clear to auscultation bilaterally AUSCULTATION: clear to auscultation bilaterally Neuro: SENSORIUM/ORIENTATION: Yes alert Urinary Catheter Management: Rodas: Cath Placed During This Visit: yes Reason for Continuing Indwelling Catheter: Accurate Measurement of Urinary Output in Critically Ill Patients Urinary Catheter Date of Insertion: 03/04/24 Data 03/06/24 04:56 03/06/24 04:56 Micro: Microbiology 03/04/24 22:50 Urine Culture - Preliminary Urine,Clean Catch Yeast species 03/04/24 14:13 Blood Culture - Preliminary Blood NEGATIVE TO DATE 03/04/24 14:10 Blood Culture - Preliminary Blood NEGATIVE TO DATE A&P Assessment and plan (1) Acute lower limb ischemia: Status post thrombectomy balloon angioplasty and stent placement at the left common femoral artery with excellent angiographic result. Patient leg is warm moist has both pulses palpable. Continue aspirin statin and Plavix add Xarelto for now because of high risk for thromboembolic phenomenon thrombosis. Plan to stop Xarelto as patient carry history of cirrhosis would like to rule out esophageal varices.. On today's visit dated March 06, 2023 patient continues to fine hemoglobin is stable Continue current management (2) CAD (coronary artery disease): Patient denies any complaint continue current Qualifiers: Coronary Disease-Associated Artery/Lesion type: [place] artery [place] vs. transplanted heart: [place] heart Associated angina: without angina Qualified Code(s): I25.10 - Atherosclerotic heart disease of [place] coronary artery without angina pectoris (3) Thrombocytopenia: Continue to monitor it is stable (4) DKA (diabetic ketoacidosis): As per medicine treatment will continue (5) Atrial fibrillation: Appear to be in sinus rhythm continue current management patient was not on anticoagulation due to possible history of cirrhosis, since she is high risk for thromboembolic phenomena therefore at this point we have started patient on low- dose Xarelto 10 mg continue to monitor closely for GI bleed, may need endoscopy to rule out esophageal varices Qualifiers: Atrial fibrillation type: paroxysmal Qualified Code(s): I48.0 - Paroxysmal atrial fibrillation (6) CKD (chronic kidney disease): It is remained stable at 1.9 (7) Hypertension: Blood pressure not well-controlled I will add hydralazine since we have taken off Aldactone due to hyperkalemia Attestations 2 Medical Necessity Statement*: Patient require continuation of hospitalization for above defined care Coding [facility] Diagn[facility] Acute lower limb ischemia I99.8 Coronary artery disease involving [place] coronary artery of [place] heart without angina pectoris I25.10 Coronary Disease-Associated Artery/Lesion type: [place] artery [place] vs. transplanted heart: [place] heart Associated angina: without angina Thrombocytopenia D69.6 DKA (diabetic ketoacidosis) E11.10 Paroxysmal atrial fibrillation I48.0 Atrial fibrillation type: paroxysmal CKD (chronic kidney disease) N18.9 Hypertension I10
[2024-03-06] MEDS: hyDRALAzine 25 mg Tablet PO (20:00)
[2024-03-06] MEDS: atorvastatin 40 mg Tablet 80 MG PO (20:49)
[2024-03-06 21:46] LABS: Hematocrit 28.8 % (36-47)
[2024-03-07] VITALS (7 sets, daily range): BP systolic 131–150; BP diastolic 44–68; PULSE 60–79; RESP 13–20; TEMP 36.6–36.8; O2SAT 93–98
--- NOTE | 2024-03-07 01:58 | PC.NURSE ---
Patient had two bowel movements with bright red blood in them. Notified Dr. Hooper, given order to get stat H&H.
--- NOTE | 2024-03-07 02:39 | PC.NURSE ---
Patient had third stool with bright red blood and large blood clots present. Notified dr. Hooper, given orders to hold Aspirin, Plavix, and Xarelto.
--- NOTE | 2024-03-07 02:41 | W.PM.EVENTAC ---
Event Note Event Note: Patient experiencing bloody bowel movement, repeat H&H, held antiplatelet and anticoagulating agent, patient has history of esophageal varices, will keep her n.p.o., this needs to be addressed with multidisciplinary approach in the morning involving cardiology, general surgery and medical team
[2024-03-07 03:33] LABS: Basophils # 0.1 10^3/uL (0.0-0.1); Basophils % 0.5 %; Eosinophils # 0.1 10^3/uL (0.0-0.8); Eosinophils % 1.2 %; Hematocrit 26.5 % (36-47); Lymphocytes # 1.5 10^3/uL (0.8-4.8); Lymphocytes % 12.9 %; Mean Corpuscular HGB Conc 30.6 g/dL (30-55); Mean Corpuscular Hemoglobin 27.1 pg (27-33); Mean Corpuscular Volume 88.6 fl (85-98); Mean Platelet Volume 11.6 fL (7.4-10.4); Monocytes # 1.5 10^3/uL (0.2-0.9); Monocytes % 13.4 %; Neutrophils # 8.06 10^3/uL (1.8-7.7); Neutrophils % 71.5 %; Nucleated Red Blood Cells % 0 %; Platelet Count 165 10^3/cmm (157-399); Red Blood Count 2.99 10^6/uL (3.85-5.65); Red Cell Distribution Width 17.5 % (12.1-15.1); White Blood Count 11.28 10^3/uL (3.29-11.43)
[2024-03-07 04:17] LABS: Alanine Aminotransferase 52 U/L (0-33); Alkaline Phosphatase 240 U/L (35-105); Anion Gap 15.3 (5-19); Aspartate Amino Transferase 148 U/L (0-32); Blood Urea Nitrogen 36 mg/dL (8-23); Calcium 7.6 mg/dL (8.5-10.5); Carbon Dioxide 19 mmol/L (22-29); Chloride 104 mmol/L (98-107); Creatinine Clr Calc Pharmacy 39.0942; Globulin 3.6 g/dL (1.3-4.6); Glucose 324 mg/dL (65-115); Osmolality Calculated 299 mOsm/kg (285-295); Potassium 4.3 mmol/L (3.5-5.1); Sodium 134 mmol/L (136-145); Total Bilirubin 1.4 mg/dL (0.15-1.2); Total Protein 6.6 g/dL (6.6-8.7)
[2024-03-07] MEDS: pantoprazole 40 mg SDV IVP ×2 (05:33→16:14)
[2024-03-07] MEDS: sodium chloride 0.9% 1,000 ML 75 ML IV ×2 (05:47→19:10)
[2024-03-07 08:48] LABS: Hematocrit 25.8 % (36-47)
[2024-03-07] MEDS: amlodipine 10 mg Tablet PO (09:06)
[2024-03-07] MEDS: RIFAXIMIN 550 MG 1 EACH PO ×2 (09:06→17:49)
[2024-03-07] MEDS: hyDRALAzine 25 mg Tablet PO ×3 (09:06→20:45)
[2024-03-07] MEDS: insulin glargine 100 units/1 mL 50 UNIT SUBCUT ×2 (09:08→17:49)
[2024-03-07] MEDS: morphine 4 mg/mL SDV 1 mL 2 MG IVP (09:18)
--- NOTE | 2024-03-07 09:32 | PC.NURSE ---
Dexcom check Pt refused to get needlestick and accucheck poke. She wants us to use her dexcom. Blood sugar check is 184.
--- NOTE | 2024-03-07 11:02 | PM.PN ---
Subjective Subjective: No pain in the left leg, good DP and PT pulse. She did have dark bloody stool overnight, all anticoagulation and antiplatelet has been held. Hemoglobin dropped 1 point, to 8.1. Vitals/I&O/Wt Last Vital Signs Temp 98.3 F 03/07/24 07:27 Pulse 61 03/07/24 07:27 Resp 18 03/07/24 09:18 BP 150/59 03/07/24 07:27 Pulse Ox 93 03/07/24 09:18 O2 Del Method Room Air 03/07/24 07:27 03/06/24 03/07/24 03/07/24 22:59 06:59 14:59 Intake Total 662.5 / 4156.25 981.25 / 4156.25 Output Total 750 / 2150 750 / 2150 Balance -87.5 / 231.25 / Weight last 48 hrs Weight 239 lb 1.6 oz Weight 237 lb 6 oz Weight 228 lb 2.855 oz Physical Exam Const: COMMON NORMALS: no acute distress and patient oriented x3 GENERAL APPEARANCE: cooperative and comfortable ORIENTATION/CONSCIOUSNESS: Yes awake, Yes oriented to person, Yes oriented to place and Yes oriented to time Chest: COMMONS NORMALS: normal inspection of the chest and normal palpation of entire chest wall CHEST: Yes Symmetrical chest wall rise Resp: COMMON NORMALS: normal respiratory effort, No retractions, No use of accessory muscles and clear to auscultation bilaterally EFFORT & INSPECTION: Yes symmetric chest movement AUSCULTATION: clear to auscultation bilaterally Cardio: COMMON NORMALS: regular rate, regular rhythm, S1 normal heart sound present, S2 normal heart sound present, No gallops present (Cardio), No clicks present (Cardio), No murmurs present (Cardio) and No rub (Cardio) RATE: regular rate RHYTHM: regular rhythm HEART SOUNDS: S1 normal heart sound present and S2 normal heart sound present PERIPHERAL PULSES: radial pulses present, popliteal pulses present positive left and posterior tibial pulses present positive left Extremity: COMMON NORMALS: no pedal edema Neuro: COMMON NORMALS: patient oriented x3 and moves all extremities SENSORIUM/ORIENTATION: Yes oriented to person, Yes oriented to place and Yes oriented to time Urinary Catheter Management: Rodas: Cath Placed During This Visit: yes Reason for Continuing Indwelling Catheter: Accurate Measurement of Urinary Output in Critically Ill Patients Urinary Catheter Date of Insertion: 03/04/24 Data 03/09/24 08:51 03/09/24 08:51 Micro: Microbiology 03/04/24 22:50 Urine Culture - Preliminary Urine,Clean Catch Yeast species A&P Assessment and plan (1) Acute lower limb ischemia: S/P thrombectomy and balloon angioplasty with stent to the left common femoral. Due to bleeding concerns, will hold all antiplatelet and anticoagulant for now, low risk of stent thrombosis/reocclusion. Will await hospitalist determination if she needs endoscopy to determine bleeding source. Continue Protonix BID per hospitalist. (2) CAD (coronary artery disease): No chest pain or shortness of breath Qualifiers: Associated angina: without angina Coronary Disease-Associated Artery/Lesion type: [place] artery [place] vs. transplanted heart: [place] heart Qualified Code(s): I25.10 - Atherosclerotic heart disease of [place] coronary artery without angina pectoris (3) Thrombocytopenia: Platelet count 165 today, increased from 101 yesterday. (4) DKA (diabetic ketoacidosis): Management per hospitalist (5) Atrial fibrillation: She appears to be in sinus rhythm, for now will hold Xarelto due to GI bleeding. Qualifiers: Atrial fibrillation type: paroxysmal Qualified Code(s): I48.0 - Paroxysmal atrial fibrillation (6) Stage 3b chronic kidney disease (CKD): Creatinine today 1.9, stable (7) Hypertension: Blood pressure elevated yesterday, staying around 130-150 systolic today. Continue amlodipine 10mg daily, hydralazine 25mg TID Attestations Medical Necessity Statement*: defer to hospitalist Coding Level of Care Code Acute Code for [facility] Diagnoses Acute lower limb ischemia I99.8 Coronary artery disease involving [place] coronary artery of [place] heart without angina pectoris I25.10 Associated angina: without angina Coronary Disease-Associated Artery/Lesion type: [place] artery [place] vs. transplanted heart: [place] heart Thrombocytopenia D69.6 DKA (diabetic ketoacidosis) E11.10 Paroxysmal atrial fibrillation I48.0 Atrial fibrillation type: paroxysmal Stage 3b chronic kidney disease (CKD) N18.32 Hypertension I10
--- NOTE | 2024-03-07 11:12 | PC.SOCIAL ---
IMM Updated Updated pt on IMM. No questions voiced. Provided pt a copy. Initialed, dated, & timed a copy & placed in chart.
--- NOTE | 2024-03-07 13:20 | PM.PN ---
Subjective Subjective: Patient had 2-3 bloody bowel movements yesterday. These are described as red blood with in a large clot. She tells me that she recently had EGD and colonoscopy in November and this was confirmed. The EGD showed bleeding in the duodenum at the time biopsies were negative for H. pylori or other pathology. Colonoscopy was negative. Vitals/I&O/Wt Last Vital Signs Temp 98.3 F 03/07/24 12:00 Pulse 68 03/07/24 12:00 Resp 13 03/07/24 12:00 BP 131/51 03/07/24 12:00 Pulse Ox 98 03/07/24 12:00 O2 Del Method Room Air 03/07/24 12:00 03/06/24 03/07/24 03/07/24 22:59 06:59 14:59 Intake Total 662.5 / 3175.0 981.25 / 4156.25 Output Total 750 / 1400 750 / 2150 Balance -87.5 / 1775.0 231.25 / 2006.25 Weight last 48 hrs Weight 108.454 kg Weight 107.671 kg Weight 103.5 kg Physical Exam Narrative: No acute distress seen sitting in recliner. Neurological alert and oriented to person place time and situation Heart irregular no loud murmur Lungs clear to auscultation without wheezes rales or rhonchi Abdomen soft nontender nondistended positive bowel sounds Extremities no clubbing cyanosis or edema Urinary Catheter Management: Rodas: Cath Placed During This Visit: yes Reason for Continuing Indwelling Catheter: Accurate Measurement of Urinary Output in Critically Ill Patients Urinary Catheter Date of Insertion: 03/04/24 Data 03/07/24 08:30 03/07/24 02:39 Micro: Microbiology 03/04/24 22:50 Urine Culture - Preliminary Urine,Clean Catch Yeast species A&P Assessment and plan (1) GI bleeding: recent edg and colon 12/23/23. EGD showed active bleeding of duodenum. h plyori negative. bx negative. colon was also negative. consult placed to Dr. Cook for repeat EGD. Pt at high risk of re-occlusion of PAD s/p stent. (2) Acute lower limb ischemia: Status post stenting per Dr. Simeon (3) Atrial fibrillation: Rate control with carvedilol Qualifiers: Atrial fibrillation type: paroxysmal Qualified Code(s): I48.0 - Paroxysmal atrial fibrillation (4) Stage 3b chronic kidney disease (CKD): Following (5) Cirrhosis: This has been reported as due to medications? Qualifiers: Hepatic cirrhosis type: other cirrhosis Qualified Code(s): K74.69 - Other cirrhosis of liver (6) Thrombocytopenia: (7) Diabetes mellitus: Patient on insulin Qualifiers: Diabetes mellitus type: type 2 Diabetes mellitus long term care social worker insulin use: with alf use (8) Hypertension: Patient on Coreg and Lasix as needed Attestations Medical Necessity Statement*: Patient now with active GI bleed and blood loss hospitalization is necessary to continue due to high risk of acute limb ischemia reoccurring since patient cannot be anticoagulated with this active bleeding. Coding Level of Care Code Acute Code for [facility] Diagnoses GI bleeding K92.2 Acute lower limb ischemia I99.8 Paroxysmal atrial fibrillation I48.0 Atrial fibrillation type: paroxysmal Stage 3b chronic kidney disease (CKD) N18.32 Other cirrhosis of liver K74.69 Hepatic cirrhosis type: other cirrhosis Thrombocytopenia D69.6 Diabetes mellitus E11.9 Diabetes mellitus type: type 2 Diabetes mellitus long term care social worker insulin use: with long term care social worker use Hypertension I10
--- NOTE | 2024-03-07 15:58 | PC.NURSE ---
Lower GI Bleed Pt had her 5th bloody stools with multiple bloo clots. denies any abdominal pain or any discomfort. vs stable.
--- NOTE | 2024-03-07 16:10 | P.CONIM_ITS ---
Providers/Reason For Consult 2 Consulting Physician/Specialty*: Dr. Leonadro Cook, DO/General Surgery Reason for Consult*: GI bleed Attending Physician: Humphrey Noland MD Primary Care Provider: Jovan Singer MD History of Present Illness History of Present Illness Jacquelin Whiteside is a 58 year old female who presented to the hospital with left lower extremity pain. She was found to have an arterial lesion of the left common femoral artery. She underwent thrombectomy, balloon angioplasty and stenting of the left common femoral artery by cardiology and then was placed on Xarelto postoperatively. Blood flow was successfully restored and her pain resolved. Postprocedure she developed a GI bleed with maroon-colored stools with dark clots. She denies any abdominal pain. She presented my office 3 months ago with dysphagia and requesting a screening colonoscopy. She is undergoing workup for possible liver transplant and the transplant team requested colonoscopy. EGD showed only mild chronic gastritis and colonoscopy could not be completed due to a poor prep. Repeat colonoscopy was recommended. She did not follow-up in my office as scheduled. She denies any nausea or emesis. She has never had a colonoscopy and denies any family history of colon cancer. She does have a known history of esophageal varices related to her liver dysfunction Review of Systems 2 General: Reports: 10 or more systems reviewed and unremarkable except in HPI and below Medications/Allergies Home Medications Medication Instructions Recorded Confirmed Last Taken Type lancing device with lancets kit #1 ea 03/14/20 03/04/24 Unknown Rx blood-glucose meter #1 ea 11/05/20 03/04/24 Unknown Rx blood sugar diagnostic (Blood #100 ea 07/23/21 03/04/24 Unknown Rx Glucose Test strips) flash glucose scanning reader #1 ea 08/04/22 03/04/24 Unknown Rx (FreeStyle Mauricio 14 Day Byron) lancets 33 gauge #100 ea 06/04/23 03/04/24 Unknown Rx spironolactone 50 mg tablet 50 mg PO DAILY #90 tabs 06/15/23 03/04/24 03/04/24 Rx carvedilol 3.125 mg tablet 3.125 mg PO BID 08/04/23 03/04/24 03/04/24 History furosemide 20 mg tablet (Lasix) 20 mg PO DAILY PRN Edema 08/04/23 03/04/24 12/22/23 History irbesartan 75 mg tablet 75 mg PO DAILY 08/04/23 03/04/24 03/04/24 History naloxone 4 mg/actuation nasal spray See Rx Instructions .Route .COMPLEX 08/04/23 03/04/24 Unknown History insulin glargine 100 unit/mL (3 50 unit (0.5 mL) SUBCUT BID #30 mL 11/16/23 03/04/24 03/04/24 Rx mL) subcutaneous pen (Lantus Solostar U-100 Insulin) ondansetron 8 mg disintegrating 8 mg PO Q8H PRN nausea and 12/17/23 03/04/24 12/22/23 Rx tablet vomiting #10 tabs nitroglycerin 0.4 mg sublingual See Rx Instructions .Route 12/22/23 03/04/24 Unknown History tablet .COMPLEX PRN Chest Pain rifaximin 550 mg tablet (Xifaxan) 550 mg PO BID 12/22/23 03/04/24 03/04/24 History insulin lispro 100 unit/mL See Rx Instructions .Route 12/24/23 03/04/24 03/04/24 Rx subcutaneous pen (Humalog KwikPen .COMPLEX #45 mL (U-100) Insulin) flash glucose sensor (FreeStyle #1 kit 01/17/24 03/04/24 Unknown Rx Mauricio 14 Day Sensor kit) lactulose 10 gram/15 mL oral See Rx Instructions .Route 02/15/24 03/04/24 03/03/24 Rx solution (Constulose) .COMPLEX #946 mL pantoprazole 40 mg tablet,delayed 40 mg PO DAILY #90 tabs 02/15/24 03/04/24 03/04/24 Rx release pen needle, diabetic 31 gauge x #100 ea 02/25/24 03/04/24 Unknown Rx 5/16 (BD Ultra-Fine Short Pen Needle) morphine 30 mg tablet,extended 30 mg PO Q12H PRN Pain 30 days #60 02/26/24 03/04/24 03/04/24 Rx release tabs empagliflozin 10 mg tablet 10 mg PO QAM 03/04/24 03/04/24 03/04/24 History (Jardiance) Allergies Allergy/AdvReac Type Severity Reaction Status Date / Time insulin degludec Allergy ALGY-Difficulty Verified 12/31/23 15:15 [From Tresiba FlexTouch Breathing U-100] levofloxacin Allergy SWELLING Verified 12/31/23 15:15 promethazine Allergy confusion Verified 12/31/23 15:15 duloxetine AdvReac ADR-Swelling Verified 12/31/23 15:15 of the Eye Current Medications Generic Name Dose Route Start Last Admin Trade Name Freq PRN Reason Stop Dose Admin Hydrocodone Bitart/Acetaminophen 1 tab 03/04/24 17:19 03/04/24 19:54 Hydrocodone-Acetaminophen 5-325 Mg Tablet PO 1 tab Q4H PRN Administration PAIN Alprazolam 0.25 mg 03/04/24 17:19 03/07/24 22:45 Alprazolam 0.5 Mg Tablet PO 0.25 mg TID PRN Administration ANXIETY Amlodipine Besylate 10 mg 03/06/24 14:05 03/07/24 09:06 Amlodipine 10 Mg Tablet PO 10 mg DAILY NIKOLAS Administration Aspirin 81 mg 03/05/24 09:00 03/06/24 08:51 Aspirin 81 Mg Ec Tablet PO 81 mg DAILY NIKOLAS Administration Atorvastatin Calcium 80 mg 03/04/24 21:00 03/07/24 20:45 Atorvastatin 40 Mg Tablet PO 80 mg BEDTIME NIKOLAS Administration Clopidogrel Bisulfate 75 mg 03/05/24 09:00 03/06/24 08:51 Clopidogrel 75 Mg Tablet PO 75 mg DAILY NIKOLAS Administration Hydralazine HCl 25 mg 03/06/24 19:15 03/07/24 20:45 Hydralazine 25 Mg Tablet PO 25 mg TID NIKOLAS Administration Sodium Chloride 1,000 mls @ 75 mls/hr 03/05/24 07:45 03/07/24 19:10 Sodium Chloride 0.9% IV 75 mls/hr .[id number] NIKOLAS Administration Insulin Glargine 50 unit 03/06/24 18:00 03/07/24 17:49 Insulin Glargine 100 Units/1 Ml SUBCUT 50 unit BID NIKOLAS Administration Insulin Human Lispro 0 unit 03/06/24 12:00 03/07/24 22:24 Insulin Lispro 100 Unit/1 Ml SUBCUT 18 unit WM&BEDTIME NIKOLAS Administration Protocol Lactulose 10 gm 03/05/24 15:00 03/07/24 20:45 Lactulose Oral Liq 20 Gm/30 Ml Udc PO 10 gm TID NIKOLAS Administration Metoprolol Tartrate 25 mg 03/07/24 21:00 03/07/24 20:45 Metoprolol Tartrate 25 Mg Tablet PO 25 mg BID@0900,2100 NIKOLAS Administration Morphine Sulfate 2 mg 03/04/24 16:04 03/07/24 09:18 Morphine 4 Mg/Ml Sdv 1 Ml IVP 2 mg Q4H PRN Administration SEVERE PAIN Non-Formulary 1 each 03/06/24 18:00 03/07/24 17:49 Medication(Rifaximin PO 1 each 550 Mg) BID NIKOLAS Administration Pantoprazole Sodium 40 mg 03/04/24 16:30 03/08/24 05:17 Pantoprazole 40 Mg Sdv IVP 40 mg Q12H NIKOLAS Administration Rifaximin 600 mg 03/05/24 09:00 03/07/24 17:52 Rifaximin 200 Mg Tablet PO Not Given BID NIKOLAS Rivaroxaban 10 mg 03/05/24 12:15 03/06/24 08:51 Rivaroxaban 10 Mg Tablet PO 10 mg DAILY NIKOLAS Administration Sucralfate 1 gm 03/07/24 17:00 03/07/24 17:49 Sucralfate 1 Gm Tablet PO 1 gm BIDAC NIKOLAS Administration Temazepam 15 mg 03/04/24 17:19 03/07/24 22:45 Temazepam 15 Mg Capsule PO 15 mg BEDTIME PRN Administration INSOMNIA PFSH Acute 2 PFSH: Medical History Hypertension Stage 3b chronic kidney disease (CKD) Cirrhosis Attributed to diabetes and chronic pain medication use her patient Atrial fibrillation History of atrial fibrillation postoperatively. CAD (coronary artery disease) Diabetes mellitus Pressure injury of sacral region, stage 2 Chronic narcotic use extended release morphine for chronic pain Lower extremity edema Neuropathy Esophageal varices CASTANON (nonalcoholic steatohepatitis) Labial abscess 2015, 02/2023 s/p I&D Encephalopathy, hepatic Diabetic neuropathy Thrombocytopenia (HFpEF) heart failure with preserved eje ction fraction Hepatomegaly Splenomegaly Carpal tunnel syndrome Migraine Sporadic pituitary adenoma History of KS (myocardial infarction) (~2006) Essential hypertension Pacemaker (~2012) due to symptomatic bradycardia Hyperlipidemia Fe deficiency anemia Surgical History History of esophageal surgery History of permanent cardiac pacemaker placement History of esophagogastroduodenoscopy (EGD) 4-5 years Hx of colonoscopy 10 plus years Vulvar abscess (~05/01/15) I&D of left labia majora abscess; performed by [facility]. S/P arterial stent x 3; approximately in 2012, 2013 - [facility] S/P brain surgery (~2005) Removal of brain tumor- benign; in the pituitary gland S/P CABG x 2 in 2006 S/P section performed in 1990, 1992 S/P hysterectomy (~1992) converted from C/Section to NAMAN,bilateral salpingectomy, probable ovaries remain. Most likely performed by Dr. Roper. Family History Brother Stroke Diabetes Mother , 72 Diabetes Heart disease Hypertension Stroke Father , 68 Diabetes Heart disease Hypertension Stroke Grandmother Diabetes Maternal Other CAD (coronary artery disease) Hyperlipidemia Lung disease Denies family history of Colon cancer Ovarian cancer Clotting disorder Dementia Hypercholesteremia Psychiatric illness Chronic kidney disease (CKD) Breast cancer Anesthesia complication Bleeding disorder Cancer Uterine cancer Thyroid disease Social History Smoking and tobacco/nicotine status: former use of tobacco/nicotine Alcohol intake: never Substance/Drug Use: never Adopted: No service: No Current gender identity: Female Vitals/I&O/Wt Last Vital Signs Temp 99.1 F 03/08/24 00:00 Pulse 74 03/08/24 04:00 Resp 13 03/08/24 04:00 BP 107/51 03/08/24 04:00 Pulse Ox 94 03/08/24 04:00 O2 Del Method Room Air 03/08/24 04:00 03/07/24 03/08/24 03/08/24 22:59 06:59 14:59 Intake Total 1200 / 1200 50 / 1250 Output Total 1200 / 1200 100 / 1300 Balance 0 / 0 -50 / -50 Weight last 48 hrs Weight 239 lb 1.6 oz Weight 239 lb 1.6 oz Weight 237 lb 6 oz Physical Exam 2 Narrative: General : Patient is well developed , no acute distress, oriented x3 Head : Normal cephalic, a-traumatic. Ears : Pinnae and external canal are normal. Hearing is normal. Eyes : PERRLA, Sclera and injection are normal. No conjunctival discharge. Nose : Mucous membranes are without erythema. Throat : buccal mucosa is normal, gums are without significant recession or hypertrophy. Lungs : Equal chest rise bilaterally, no use of accessory muscles, trachea is midline. Cor : Rate and rhythm are normal. Abdomen : Soft, ND, mild epigastric tenderness, no g/r/m Extremities : No edema, no cyanosis or clubbing, dorsalis pedis pulses are present bilaterally, non-tender to palpation of calves. Upper extremities are normal bilaterally. Back : non-tender to palpation, no CVA tenderness. Neuro : CN II - XII intact, Upper and lower extremities have equal and full strength Urinary Catheter Management: Rodas: Cath Placed During This Visit: yes Reason for Continuing Indwelling Catheter: Accurate Measurement of Urinary Output in Critically Ill Patients Urinary Catheter Date of Insertion: 03/04/24 Data 03/08/24 07:26 03/08/24 07:26 A&P Assessment and plan (1) GI bleeding: (2) Esophageal varices: (3) Cirrhosis: Qualifiers: Hepatic cirrhosis type: other cirrhosis Qualified Code(s): K74.69 - Other cirrhosis of liver (4) Dysphagia: (5) Thrombocytopenia: (6) Fe deficiency anemia: Qualifiers: Iron deficiency anemia type: chronic blood loss Qualified Code(s): D 50.0 - Iron deficiency anemia secondary to blood loss (chronic) Plan Last dose of Xarelto was yesterday morning. She will require EGD with possible balloon dilation and colonoscopy to investigate possible source of blood loss. She does have known esophageal varices. She has never had a completed colonoscopy and also needs a colonoscopy as part of the workup for possible liver transplant. She did not get cleaned out with her last colon prep and a 2- day prep was recommended. Therefore we will give her clear liquids and 1 bottle of magnesium citrate today and do a full bowel prep tomorrow with plans for endoscopy Thursday EGD with possible balloon dilation Colonoscopy The risks and benefits of the procedure, including bleeding, infection, intestinal perforation requiring surgery, missed lesion were explained to the patient. The patient is understanding of the risks and wishes to proceed. Continue pantoprazole 40 mg every 12 hours And sucralfate 1 g twice daily N.p.o. after midnight tomorrow night Coding Level of Care Code 60156 Diagnoses GI bleeding K92.2 Esophageal varices I85.00 Other cirrhosis of liver K74.69 Hepatic cirrhosis type: other cirrhosis Dysphagia R13.10 Thrombocytopenia D69.6 Iron deficiency anemia due to chronic blood loss D50.0 Iron deficiency anemia type: chronic blood loss
[2024-03-07] MEDS: lactulose oral liq 20 gm/30 mL UDC 10 GM PO ×2 (16:25→20:45)
--- NOTE | 2024-03-07 16:30 | PC.NURSE ---
dexcom check blood sugar level is 213 in dexcom.
[2024-03-07] MEDS: sucralfate 1 gm Tablet PO (17:49)
[2024-03-07] MEDS: insulin lispro 100 unit/1 mL SUBCUT ×2 (17:49→22:24)
[2024-03-07] MEDS: magnesium citrate Btl 296 mL PO (19:10)
[2024-03-07] MEDS: atorvastatin 40 mg Tablet 80 MG PO (20:45)
[2024-03-07] MEDS: metoprolol tartrate 25 mg Tablet PO (20:45)
[2024-03-07] MEDS: metoprolol tartrate 1 mg/1 mL SDV 5 mL 5 MG IVP (20:46)
--- NOTE | 2024-03-07 21:28 | PC.NURSE ---
Dexcom check at 2100 is 405
--- NOTE | 2024-03-07 21:31 | PC.NURSE ---
Patient heart rate increased to 140s. Ekg obtained, it showed afib rvr. Notified Dr. Rinaldi, given order for Metoprolol 5mg IVP and Metoprolol 25mg PO.
[2024-03-07] MEDS: ALPRAZolam 0.5 mg Tablet 0.25 MG PO (22:45)
[2024-03-07] MEDS: temazepam 15 mg Capsule PO (22:45)
[2024-03-07 22:57] LABS: Hematocrit 25.1 % (36-47)
[2024-03-08] VITALS (7 sets, daily range): BP systolic 104–142; BP diastolic 44–60; PULSE 69–115; RESP 10–18; TEMP 36.4–37.4; O2SAT 94–100; BMI 38.5
[2024-03-08 03:00] LABS: Basophils # 0.1 10^3/uL (0.0-0.1); Basophils % 0.6 %; Eosinophils # 0.2 10^3/uL (0.0-0.8); Eosinophils % 1.6 %; Hematocrit 23.3 % (36-47); Lymphocytes # 1.1 10^3/uL (0.8-4.8); Lymphocytes % 9.8 %; Mean Corpuscular HGB Conc 30.9 g/dL (30-55); Mean Corpuscular Hemoglobin 27.9 pg (27-33); Mean Corpuscular Volume 90.3 fl (85-98); Mean Platelet Volume 10.7 fL (7.4-10.4); Monocytes # 1.5 10^3/uL (0.2-0.9); Monocytes % 13.3 %; Neutrophils # 8.19 10^3/uL (1.8-7.7); Neutrophils % 74.1 %; Nucleated Red Blood Cells % 0 %; Platelet Count 140 10^3/cmm (157-399); Red Blood Count 2.58 10^6/uL (3.85-5.65); Red Cell Distribution Width 18.4 % (12.1-15.1); White Blood Count 11.06 10^3/uL (3.29-11.43)
[2024-03-08] MEDS: pantoprazole 40 mg SDV IVP ×2 (05:17→17:08)
[2024-03-08 07:37] LABS: Hematocrit 23.7 % (36-47)
[2024-03-08 07:57] LABS: Anion Gap 12.8 (5-19); Blood Urea Nitrogen 29 mg/dL (8-23); Calcium 7.5 mg/dL (8.5-10.5); Carbon Dioxide 18 mmol/L (22-29); Chloride 104 mmol/L (98-107); Creatinine Clr Calc Pharmacy 41.4305; Glomerular Filtration Rate 28.7 mL/min (90-130); Glucose 164 mg/dL (65-115); Osmolality Calculated 281 mOsm/kg (285-295); Potassium 3.8 mmol/L (3.5-5.1); Sodium 131 mmol/L (136-145)
[2024-03-08] MEDS: RIFAXIMIN 550 MG 1 EACH PO ×2 (08:31→17:11)
[2024-03-08] MEDS: insulin glargine 100 units/1 mL 50 UNIT SUBCUT ×2 (08:32→17:08)
[2024-03-08] MEDS: insulin lispro 100 unit/1 mL SUBCUT ×3 (08:33→17:07)
[2024-03-08] MEDS: amlodipine 10 mg Tablet PO (08:34)
[2024-03-08] MEDS: hyDRALAzine 25 mg Tablet PO ×2 (08:34→20:39)
[2024-03-08] MEDS: metoprolol tartrate 25 mg Tablet PO ×2 (08:34→20:39)
[2024-03-08] MEDS: sucralfate 1 gm Tablet PO ×2 (08:35→17:08)
[2024-03-08] MEDS: lactulose oral liq 20 gm/30 mL UDC 10 GM PO (08:36)
--- NOTE | 2024-03-08 09:16 | P.PN_ITS ---
<Statement entered by Humphrey Noland MD - 03/08/24 21:35> Patient was evaluated and cared for in conjunction with an advanced practice practitioner. I personally examined the patient and reviewed the chart and all pertinent data including imaging, telemetry, and laboratory results. I discussed the patient in detail with the advanced practice practitioner. Please see their note for complete H&P testing result and agreed upon plan of care for the patient. Patient continues to have red prune juice colored stool, hemoglobin around 7.0 denies any pain in the leg overall leg is feeling better flow has been improved GENERAL: Patient is alert, awake and oriented x3. HEART: Regular S1 and S2. No murmur, rub or gallop. LUNGS: Clear to auscultate bilaterally. CENTRAL NERVOUS SYSTEM: Grossly nonfocal. EXTREMITIES: Lower extremities with out edema bilaterally. Good anterior posterior tibial left foot with warm and moist Assessment and plan Acute limb ischemia: Resolved status post revascularization of left lower leg, antiplatelet and anticoagulation has been stopped secondary to GI bleed Coronary artery disease: Appeared to be stable continue to monitor GI bleed: Hemoglobin around 7.0 bleeding has been settling down anticoagulation and antiplatelet has been stopped patient will be going for endoscopy and colonoscopy possible tomorrow further plan will be devised Subjective 2 Subjective: Hemoglobin decreased to 7.2, plan for endoscopy tomorrow by Dr Cook. No chest pain, no pain in the left leg post thrombectomy and balloon angioplasty with stent to left common femoral on 03/04/24. Palpable pulses, left leg pink and warm. Will continue to follow. Vitals/I&O/Wt Last Vital Signs Temp 97.7 F 03/08/24 07:58 Pulse 80 03/08/24 07:58 Resp 16 03/08/24 07:58 BP 142/60 03/08/24 07:58 Pulse Ox 100 03/08/24 07:58 O2 Del Method Room Air 03/08/24 07:58 03/07/24 03/08/24 03/08/24 22:59 06:59 14:59 Intake Total 1200 / 1250 50 / 1250 Output Total 1200 / 1300 100 / 1300 Balance 0 / -50 -50 / -50 Weight last 48 hrs Weight 239 lb 1.6 oz Weight 239 lb 1.6 oz Weight 237 lb 6 oz Physical Exam 2 Const: COMMON NORMALS: no acute distress and patient oriented x3 GENERAL APPEARANCE: cooperative and comfortable ORIENTATION/CONSCIOUSNESS: Yes awake, Yes oriented to person, Yes oriented to place and Yes oriented to time Chest: COMMONS NORMALS: normal inspection of the chest and normal palpation of entire chest wall CHEST: Yes Symmetrical chest wall rise Resp: COMMON NORMALS: normal respiratory effort, No retractions, No use of accessory muscles and clear to auscultation bilaterally EFFORT & INSPECTION: Yes symmetric chest movement AUSCULTATION: clear to auscultation bilaterally Cardio: COMMON NORMALS: regular rate, regular rhythm, S1 normal heart sound present, S2 normal heart sound present, No gallops present (Cardio), No clicks present (Cardio), No murmurs present (Cardio) and No rub (Cardio) RATE: r egular rate RHYTHM: regular rhythm HEART SOUNDS: S1 normal heart sound present and S2 normal heart sound present PERIPHERAL PULSES: radial pulses present Extremity: COMMON NORMALS: no pedal edema Neuro: COMMON NORMALS: patient oriented x3 and moves all extremities S ENSORIUM/ORIENTATION: Yes oriented to person, Yes oriented to place and Yes oriented to time Urinary Catheter Management: Rodas: Cath Placed During This Visit: yes Reason for Continuing Indwelling Catheter: Accurate Measurement of Urinary Output in Critically Ill Patients Urinary Catheter Date of Insertion: 03/04/24 Data 03/08/24 07:26 03/08/24 07:26 A&P Assessment and plan (1) Acute lower limb ischemia: She is s/p thrombectomy and balloon angioplasty with stent to the left common femoral. Due to bleeding concerns, will hold all antiplatelet and anticoagulant for now, low risk of stent thrombosis/reocclusion. (2) CAD (coronary artery disease): No symptoms of coronary ischemia. Qualifiers: Coronary Disease-Associated Artery/Lesion type: [place] artery [place] vs. transplanted heart: [place] heart Associated angina: without angina Qualified Code(s): I25.10 - Atherosclerotic heart disease of [place] coronary artery without angina pectoris (3) Thrombocytopenia: Platelet count 140, down from 165 yesterday. Management per hospitalist. (4) DKA (diabetic ketoacidosis): Management per hospitalist. (5) Atrial fibrillation: She appears to be in sinus rhythm today. Holding all anticoagulant due to GI bleeding. Qualifiers: Atrial fibrillation type: paroxysmal Qualified Code(s): I48.0 - Paroxysmal atrial fibrillation (6) Stage 3b chronic kidney disease (CKD): Creatinine 1.8, down from 1.9 yesterday. (7) Essential hypertension: Blood pressure soft, hold hydralazine and amlodipine if blood pressure less than 120/80. Continue metoprolol tartrate 25mg BID. Attestations 2 Medical Necessity Statement*: per hospitalist, plan for endoscopy tomorrow Coding Level of Care Code Acute Code for [facility] Diagnoses Acute lower limb ischemia I99.8 Coronary artery disease involving [place] coronary artery of [place] heart without angina pectoris I25.10 Coronary Disease-Associated Artery/Lesion type: [place] artery [place] vs. transplanted heart: [place] heart Associated angina: without angina Thrombocytopenia D69.6 DKA (diabetic ketoacidosis) E11.10 Paroxysmal atrial fibrillation I48.0 Atrial fibrillation type: paroxysmal Stage 3b chronic kidney disease (CKD) N18.32 Essential hypertension I10
[2024-03-08] MEDS: bisacodyl 5 mg Tablet 20 MG PO (10:07)
[2024-03-08] MEDS: magnesium citrate Btl 296 mL PO ×2 (10:07→13:00)
--- NOTE | 2024-03-08 11:06 | ECG_ITS ---
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 Measurements Intervals [place] Rate: 72 P: -14 PA: 250 QRS: 60 QRSD: 102 T: 74 QT: 412 QTc: 453 Interpretive Statements possible atrial fibrillation with demand V pacing ELECTRONIC VENTRICULAR PACEMAKER -- CONTOUR ANALYSIS BASED ON INTRINSIC RHYTHM nonspecific ST-T changes Electronically Signed On 03-08-2024 23:49:46 REGIONAL EDUCATION MANAGER by Praneeth Joseph M.D. [email or web address]
--- NOTE | 2024-03-08 12:06 | PC.NURSE ---
according to hector,[employer] executive...dexcom reading is 217. insulin s/s 8 units ordered and given as ordered.[employer] executive states pt does not want to be stuck for accucheck
--- NOTE | 2024-03-08 12:44 | P.PN_ITS ---
Subjective 2 Subjective: Patient seen and examined. Tolerated magnesium citrate yesterday. No further GI bleeding. Denies any abdominal pain Vitals/I&O/Wt Last Vital Signs Temp 97.1 F L 03/09/24 12:36 Pulse 82 03/09/24 12:36 Resp 16 03/09/24 12:36 BP 148/82 03/09/24 12:36 Pulse Ox 95 03/09/24 12:36 O2 Del Method Room Air 03/09/24 12:36 03/08/24 03/09/24 03/09/24 22:59 06:59 14:59 Intake Total 450 / 990 250 / 1240 Output Total 500 / 500 200 / 700 Balance -50 / 490 50 / 540 Weight last 48 hrs Weight 239 lb 1.6 oz Weight 239 lb 1.6 oz Physical Exam 2 Narrative: General: No acute distress, awake alert and oriented x 3 Abdomen: Soft, nontender, nondistended Urinary Catheter Management: Rodas: Cath Placed During This Visit: yes Reason for Continuing Indwelling Catheter: Accurate Measurement of Urinary Output in Critically Ill Patients Urinary Catheter Date of Insertion: 03/04/24 Data 03/09/24 08:51 03/09/24 08:51 Micro: Microbiology 03/04/24 22:50 Urine Culture - Final Urine,Clean Catch Mariaelena tropicalis A&P Assessment and plan (1) GI bleeding: (2) Esophageal varices: (3) Cirrhosis: Qualifiers: Hepatic cirrhosis type: other cirrhosis Qualified Code(s): K74.69 - Other cirrhosis of liver (4) Dysphagia: (5) Thrombocytopenia: (6) Fe deficiency anemia: Qualifiers: Iron deficiency anemia type: chronic blood loss Qualified Code(s): D 50.0 - Iron deficiency anemia secondary to blood loss (chronic) Plan Bowel prep today N.p.o. after midnight for endoscopy tomorrow EGD with possible balloon dilation Colonoscopy The risks and benefits of the procedure, including bleeding, infection, intestinal perforation requiring surgery, missed lesion were explained to the patient. The patient is understanding of the risks and wishes to proceed. Medical management per primary Attestations 2 Medical Necessity Statement*: Per primary Coding Level of Care Code 38754 Diagnoses GI bleeding K92.2 Esophageal varices I85.00 Other cirrhosis of liver K74.69 Hepatic cirrhosis type: other cirrhosis Dysphagia R13.10 Thrombocytopenia D69.6 Iron deficiency anemia due to chronic blood loss D50.0 Iron deficiency anemia type: chronic blood loss
[2024-03-08] MEDS: HYDROcodone-acetaminophen 5-325 mg Tablet 1 TAB PO (14:00)
[2024-03-08] MEDS: ondansetron 2 mg/ML SDV 2 mL 4 MG IVP (14:25)
--- NOTE | 2024-03-08 15:05 | P.PN_ITS ---
Subjective 2 Subjective: Continues with loose stool but this is also due to bowel prep for colonoscopy Patient a bit frustrated with all the complications she is having this hospitalization. I had a long talk with the patient and Vitals/I&O/Wt Last Vital Signs Temp 97.5 F L 03/08/24 11:50 Pulse 69 03/08/24 11:50 Resp 12 03/08/24 11:50 BP 104/50 03/08/24 11:50 Pulse Ox 95 03/08/24 11:50 O2 Del Method Room Air 03/08/24 11:50 03/08/24 03/08/24 03/08/24 06:59 14:59 22:59 Intake Total 50 / 1250 540 / 540 Output Total 100 / 1300 Balance -50 / -50 540 / 540 Weight last 48 hrs Weight 108.454 kg Weight 108.454 kg Physical Exam 2 Narrative: No acute distress mood is somewhat depressed today Neurological alert and oriented to person place time and situation Heart regular today no loud murmur Lungs clear to auscultation without wheezes rales or rhonchi Abdomen soft nontender nondistended positive bowel sounds Extremities no clubbing cyanosis or edema Urinary Catheter Management: Rodas: Cath Placed During This Visit: yes Reason for Continuing Indwelling Catheter: Accurate Measurement of Urinary Output in Critically Ill Patients Urinary Catheter Date of Insertion: 03/04/24 Data 03/08/24 07:26 03/08/24 07:26 Micro: Microbiology 03/04/24 22:50 Urine Culture - Final Urine,Clean Catch Mariaelena tropicalis A&P Assessment and plan (1) GI bleeding: recent edg and colon 12/23/23. EGD showed active bleeding of duodenum. h plyori negative. bx negative. colon was also negative. Dr. Cook planning EGD and colonoscopy tomorrow Discussed with Dr. Mckinley patient is at low risk for stent thrombosis/reocclusion. Thus aspirin and Plavix can be held. The question regarding anticoagulation for A-fib will be answered after EGD/colonoscopy tomorrow In the meantime patient is anemic with a hemoglobin of 7.2 will see if this stabilizes tomorrow otherwise may need blood transfusion (2) Acute lower limb ischemia: Status post stenting per Dr. Simeon (3) Atrial fibrillation: Had an episode of rapid ventricular response yesterday, she was given IV doses of metoprolol and eventually converted. Now in normal sinus rhythm Qualifiers: Atrial fibrillation type: paroxysmal Qualified Code(s): I48.0 - Paroxysmal atrial fibrillation (4) Stage 3b chronic kidney disease (CKD): Following (5) Cirrhosis: This has been reported as due to medications? Qualifiers: Hepatic cirrhosis type: other cirrhosis Qualified Code(s): K74.69 - Other cirrhosis of liver (6) Thrombocytopenia: (7) Diabetes mellitus: Patient on insulin Qualifiers: Diabetes mellitus type: type 2 Diabetes mellitus senior care insulin use: with wildlife conservation officer use (8) Hypertension: Patient on Coreg and Lasix as needed Attestations 2 Medical Necessity Statement*: Patient continues to require greater than 2 midnight stay for evaluation of GI bleeding and possible transfusion Coding Level of Care Code Acute Code for [facility] Diagnoses GI bleeding K92.2 Acute lower limb ischemia I99.8 Paroxysmal atrial fibrillation I48.0 Atrial fibrillation type: paroxysmal Stage 3b chronic kidney disease (CKD) N18.32 Other cirrhosis of liver K74.69 Hepatic cirrhosis type: other cirrhosis Thrombocytopenia D69.6 Diabetes mellitus E11.9 Diabetes mellitus type: type 2 Diabetes mellitus senior care insulin use: with wildlife conservation officer use Hypertension I10
--- NOTE | 2024-03-08 16:43 | PC.NURSE ---
dexcom reading glucose at 185
[2024-03-08] MEDS: atorvastatin 40 mg Tablet 80 MG PO (20:39)
--- NOTE | 2024-03-08 21:17 | PC.NURSE ---
Dexcom check at 2100 was 110.
--- NOTE | 2024-03-08 21:21 | PC.NURSE ---
Dexcom Check was 110 nurse notified
[2024-03-08] MEDS: temazepam 15 mg Capsule PO (21:37)
[2024-03-08] MEDS: ALPRAZolam 0.5 mg Tablet 0.25 MG PO (21:37)
[2024-03-09] VITALS (15 sets, daily range): BP systolic 97–148; BP diastolic 41–82; PULSE 70–82; RESP 12–20; TEMP 36.2–37.1; O2SAT 94–100
[2024-03-09] MEDS: pantoprazole 40 mg SDV IVP (05:15)
--- NOTE | 2024-03-09 06:36 | PC.NURSE ---
Dexcom blood sugar was 42 nurse notified orange juice given
[2024-03-09] MEDS: glucagon 1 mg/mL KIT 1 mL IM (06:49)
--- NOTE | 2024-03-09 07:16 | PC.NURSE ---
Per GI lab they are coming to get patient around 0900 to 0930 for her EGD and to hold medications.
--- NOTE | 2024-03-09 07:58 | PC.NURSE ---
Patient's dexcom read 134 at 0735.
[2024-03-09 09:05] LABS: Basophils % 0.3 %; Eosinophils # 0.2 10^3/uL (0.0-0.8); Eosinophils % 1.5 %; Hematocrit 23.8 % (36-47); Lymphocytes # 0.6 10^3/uL (0.8-4.8); Lymphocytes % 5.3 %; Mean Corpuscular HGB Conc 30.3 g/dL (30-55); Mean Corpuscular Hemoglobin 28.2 pg (27-33); Mean Corpuscular Volume 93.3 fl (85-98); Mean Platelet Volume 10.6 fL (7.4-10.4); Monocytes # 1.1 10^3/uL (0.2-0.9); Monocytes % 9.9 %; Neutrophils # 9.11 10^3/uL (1.8-7.7); Neutrophils % 82.4 %; Nucleated Red Blood Cells % 0 %; Platelet Count 142 10^3/cmm (157-399); Red Blood Count 2.55 10^6/uL (3.85-5.65); Red Cell Distribution Width 18.5 % (12.1-15.1); White Blood Count 11.06 10^3/uL (3.29-11.43)
[2024-03-09 09:23] LABS: Alanine Aminotransferase 50 U/L (0-33); Albumin Level 2.9 g/dL (3.5-5.2); Alkaline Phosphatase 216 U/L (35-105); Anion Gap 14.8 (5-19); Aspartate Amino Transferase 154 U/L (0-32); Blood Urea Nitrogen 33 mg/dL (8-23); Calcium 7.5 mg/dL (8.5-10.5); Carbon Dioxide 17 mmol/L (22-29); Chloride 104 mmol/L (98-107); Creatinine Clr Calc Pharmacy 37.2874; Globulin 3.2 g/dL (1.3-4.6); Glomerular Filtration Rate 25.4 mL/min (90-130); Glucose 193 mg/dL (65-115); Osmolality Calculated 287 mOsm/kg (285-295); Potassium 3.8 mmol/L (3.5-5.1); Sodium 132 mmol/L (136-145); Total Bilirubin 1.2 mg/dL (0.15-1.2); Total Protein 6.1 g/dL (6.6-8.7)
--- NOTE | 2024-03-09 10:16 | PC.NURSE ---
Patient off the floor to GI lab at 1017.
--- NOTE | 2024-03-09 10:36 | P.ANESASSM_ITS ---
Pre-Anesthetic Assessment Height/Weight: Height 1.68 m Weight 108.454 kg Temp Pulse Resp BP Pulse Ox O2 Del Method 97.3 F L 79 18 127/56 99 Room Air 03/09/24 10:28 03/09/24 10:28 03/09/24 10:28 03/09/24 10:28 03/09/24 10:28 03/09/24 10:28 Preop Diagnosis: Acute limb ischemia Operation Date: 03/04/24 15:00 Proposed Procedures p Peripheral Diagnostic(Not Applicable) - Humphrey Noland MD Operation Date: 03/09/24 10:15 Proposed Procedures p EGD W/POSS BALLOON DIL(Not Applicable) - DO sujata Orr Colonoscopy(Not Applicable) - Leonardo Cook DO Familial anesthetic complications: none Was Beta Nelson taken within 24 hours: Yes Was Clonidine taken within 24 hours: N/A Last intake: Intake Last Liquid Date 03/08/24 Last Liquid Time 23:55 Last Solid Date 03/08/24 Last Solid Time 18:00 Social No alcohol and No tobacco Exam alert, oriented x 3, clear to auscultation bilaterally and regular rate & rhythm Airway Submandibular: within normal limits Cervical ROM: within normal limits Mallampati: Class II Dentition: full History/ROS No significant history except as noted and No significant complaints Pulmonary None reported CV/HEM Coronary Artery Disease, Deep Vein Thrombosis, Hypertension, Myocardial Infarction and Peripheral Vascular Disease None reported Hepatic Cirrhosis Gastric Banding 7 years ago GI None reported Metabolic Diabetes Mellitus [facility] None reported Neuropsych None reported Anesthetic Plan ASA status: 3 Anesthesia: MAC Risk of > 500 ml blood loss (7ml/kg in children): No Medications/Allergies Home Medications Medication Instructions Recorded Confirmed Last Taken Type lancing device with lancets kit #1 ea 03/14/20 03/04/24 Unknown Rx blood-glucose meter #1 ea 11/05/20 03/04/24 Unknown Rx blood sugar diagnostic (Blood #100 ea 07/23/21 03/04/24 Unknown Rx Glucose Test strips) flash glucose scanning reader #1 ea 08/04/22 03/04/24 Unknown Rx (FreeStyle Mauricio 14 Day [place]) lancets 33 gauge #100 ea 06/04/23 03/04/24 Unknown Rx spironolactone 50 mg tablet 50 mg PO DAILY #90 tabs 0403/04/24 03/04/24 Rx carvedilol 3.125 mg tablet 3.125 mg PO BID 08/04/23 03/04/24 03/04/24 History furosemide 20 mg tablet (Lasix) 20 mg PO DAILY PRN Edema 08/04/23 03/04/24 12/22/23 History irbesartan 75 mg tablet 75 mg PO DAILY 08/04/23 03/04/24 03/04/24 History naloxone 4 mg/actuation nasal spray See Rx Instructions .Route .COMPLEX 08/04/23 03/04/24 Unknown History insulin glargine 100 unit/mL (3 50 unit (0.5 mL) SUBCUT BID #30 mL 11/16/23 03/04/24 03/04/24 Rx mL) subcutaneous pen (Lantus Solostar U-100 Insulin) ondansetron 8 mg disintegrating 8 mg PO Q8H PRN nausea and 12/17/23 03/04/24 12/22/23 Rx tablet vomiting #10 tabs nitroglycerin 0.4 mg sublingual See Rx Instructions .Route 12/22/23 03/04/24 Unknown History tablet .COMPLEX PRN Chest Pain rifaximin 550 mg tablet (Xifaxan) 550 mg PO BID 12/22/23 03/04/24 03/04/24 History insulin lispro 100 unit/mL See Rx Instructions .Route 12/24/23 03/04/24 03/04/24 Rx subcutaneous pen (Humalog KwikPen .COMPLEX #45 mL (U-100) Insulin) flash glucose sensor (FreeStyle #1 kit 01/17/24 03/04/24 Unknown Rx Mauricio 14 Day Sensor kit) lactulose 10 gram/15 mL oral See Rx Instructions .Route 02/15/24 03/04/24 03/03/24 Rx solution (Constulose) .COMPLEX #946 mL pantoprazole 40 mg tablet,delayed 40 mg PO DAILY #90 tabs 02/15/24 03/04/24 03/04/24 Rx release pen needle, diabetic 31 gauge x #100 ea 02/25/24 03/04/24 Unknown Rx 5/16 (BD Ultra-Fine Short Pen Needle) morphine 30 mg tablet,extended 30 mg PO Q12H PRN Pain 30 days #60 02/26/24 03/04/2425 Rx release tabs empagliflozin 10 mg tablet 10 mg PO QAM 03/04/24 03/04/24 03/04/24 History (Jardiance) Allergies Allergy/AdvReac Type Severity Reaction Status Date / Time insulin degludec Allergy ALGY-Difficulty Verified 12/31/23 15:15 [From Tresiba FlexTouch Breathing U-100] levofloxacin Allergy SWELLING Verified 12/31/23 15:15 promethazine Allergy confusion Verified 12/31/23 15:15 duloxetine AdvReac ADR-Swelling Verified 12/31/23 15:15 of the Eye Current Medications Generic Name Dose Route Start Last Admin Trade Name Freq PRN Reason Stop Dose Admin Hydrocodone Bitart/Acetaminophen 1 tab 03/04/24 17:19 03/08/24 14:00 Hydrocodone-Acetaminophen 5-325 Mg Tablet PO 1 tab Q4H PRN Administration PAIN Alprazolam 0.25 mg 03/08/24 21:13 03/08/24 21:37 Alprazolam 0.5 Mg Tablet PO 0.25 mg TID PRN Administration ANXIETY Amlodipine Besylate 10 mg 03/06/24 14:05 03/08/24 08:34 Amlodipine 10 Mg Tablet PO 10 mg DAILY NIKOLAS Administration Aspirin 81 mg 03/05/24 09:00 03/06/24 08:51 Aspirin 81 Mg Ec Tablet PO 81 mg DAILY NIKOLAS Administration Atorvastatin Calcium 80 mg 03/04/24 21:00 03/08/24 20:39 Atorvastatin 40 Mg Tablet PO 80 mg BEDTIME NIKOLAS Administration Clopidogrel Bisulfate 75 mg 03/05/24 09:00 03/06/24 08:51 Clopidogrel 75 Mg Tablet PO 75 mg DAILY NIKOLAS Administration Hydralazine HCl 25 mg 03/06/24 19:15 03/08/24 20:39 Hydralazine 25 Mg Tablet PO 25 mg TID NIKOLAS Administration Insulin Glargine 50 unit 03/06/24 18:00 03/08/24 17:08 Insulin Glargine 100 Units/1 Ml SUBCUT 50 unit BID NIKOLAS Administration Insulin Human Lispro 0 unit 03/06/24 12:00 03/09/24 10:20 Insulin Lispro 100 Unit/1 Ml SUBCUT Not Given WM&BEDTIME NIKOLAS Protocol Lactulose 10 gm 03/05/24 15:00 03/08/24 21:18 Lactulose Oral Liq 20 Gm/30 Ml Udc PO Not Given TID INKOLAS Metoprolol Tartrate 25 mg 03/07/24 21:00 03/08/24 20:39 Metoprolol Tartrate 25 Mg Tablet PO 25 mg BID@0900,2100 NIKOLAS Administration Morphine Sulfate 2 mg 03/04/24 16:04 03/07/24 09:18 Morphine 4 Mg/Ml Sdv 1 Ml IVP 2 mg Q4H PRN Administration SEVERE PAIN Non-Formulary 1 each 03/06/24 18:00 03/08/24 17:11 Medication(Rifaximin PO 1 each 550 Mg) BID NIKOLAS Administration Ondansetron HCl 4 mg 03/04/24 16:04 03/08/24 14:25 Ondansetron 2 Mg/Ml Sdv 2 Ml IVP 4 mg Q8H PRN Administration vomiting, or N/V if npo Pantoprazole Sodium 40 mg 03/04/24 16:30 03/09/24 05:15 Pantoprazole 40 Mg Sdv IVP 40 mg Q12H NIKOLAS Administration Rivaroxaban 10 mg 03/05/24 12:15 03/06/24 08:51 Rivaroxaban 10 Mg Tablet PO 10 mg DAILY NIKOLAS Administration Sucralfate 1 gm 03/07/24 17:00 03/08/24 17:08 Sucralfate 1 Gm Tablet PO 1 gm BIDAC NIKOLAS Administration Temazepam 15 mg 03/08/24 21:15 03/08/24 21:37 Temazepam 15 Mg Capsule PO 15 mg BEDTIME PRN Administration INSOMNIA PFSH Anesthesia Medical History Hypertension Stage 3b chronic kidney disease (CKD) Cirrhosis Attributed to diabetes and chronic pain medication use her patient Atrial fibrillation History of atrial fibrillation postoperatively. CAD (coronary artery disease) Diabetes mellitus Pressure injury of sacral region, stage 2 Chronic narcotic use extended release morphine for chronic pain Lower extremity edema Neuropathy Esophageal varices CASTANON (nonalcoholic steatohepatitis) Labial abscess 2015, 02/2023 s/p I&D Encephalopathy, hepatic Diabetic neuropathy Thrombocytopenia (HFpEF) heart failure with preserved ejection fraction Hepatomegaly Splenomegaly Carpal tunnel syndrome Migraine Sporadic pituitary adenoma History of LA (myocardial infarction) (~2006) Essential hypertension Pacemaker (~2012) due to symptomatic bradycardia Hyperlipidemia Fe deficiency anemia Surgical History History of esophageal surgery History of permanent cardiac pacemaker placement History of esophagogastroduodenoscopy (EGD) 4-5 years Hx of colonoscopy 10 plus years Vulvar abscess (~05/01/15) I&D of left labia majora abscess; performed by Kiko. S/P arterial stent x 3; approximately in 2012, 2013 - [facility] S/P brain surgery (~2005) Removal of brain tumor- benign; in the pituitary gland S/P CABG x 2 in 2006 S/P section performed in 1990, 1992 S/P hysterectomy (~1992) converted from C/Section to NAMAN,bilateral salpingectomy, probable ovaries remain. Most likely performed by Dr. Roper. Family History Brother Stroke Diabetes Mother , 72 Diabetes Heart disease Hypertension Stroke Father , 68 Diabetes Heart disease Hypertension Stroke Grandmother Diabetes Maternal Other CAD (coronary artery disease) Hyperlipidemia Lung disease Denies family history of Colon cancer Ovarian cancer Clotting disorder Dementia Hypercholesteremia Psychiatric illness Chronic kidney disease (CKD) Breast cancer Anesthesia complication Bleeding disorder Cancer Uterine cancer Thyroid disease Social History Smoking and tobacco/nicotine status: former use of tobacco/nicotine Alcohol intake: never Substance/Drug Use: never Adopted: No service: No Current gender identity: Female Data Anesthesia 03/09/24 08:51 03/09/24 08:51 Short CBC 03/07/24 03/08/24 03/08/24 Range/Units 22:51 02:52 07:26 WBC 11.06 (3.29-11.43) 10^3/uL Hgb 7.80 L 7.20 L 7.20 L (11.27-16.99) g/dL Hct 25.1 L 23.3 L 23.7 L (36-47) % MCV 90.3 (85-98) fl Plt Count 140 L (157-399) 10^3/cmm Neut % (Auto) 74.1 % Neut # (Auto) 8.19 H (1.8-7.7) 10^3/uL 03/09/24 Range/Units 08:51 WBC 11.06 (3.29-11.43) 10^3/uL Hgb 7.20 L (11.27-16.99) g/dL Hct 23.8 L (36-47) % MCV 93.3 (85-98) fl Plt Count 142 L (157-399) 10^3/cmm Neut % (Auto) 82.4 % Neut # (Auto) 9.11 H (1.8-7.7) 10^3/uL BMP 03/08/24 03/09/24 07:26 08:51 Sodium 131 L 132 L Potassium 3.8 3.8 Chloride 104 104 Carbon Dioxide 18 L 17 L BUN 29 H 33 H Creatinine 1.8 H 2.0 H Glucose 164 H 193 H Calcium 7.5 L 7.5 L Liver Function 03/09/24 Range/Units 08:51 Total Bilirubin 1.2 (0.15-1.2) mg/dL AST 154 H (0-32) U/L ALT 50 H (0-33) U/L Alkaline Phosphatase 216 H (35-105) U/L Albumin 2.9 L (3.5-5.2) g/dL Microbiology 03/04/24 22:50 Urine Culture - Final Urine,Clean Catch Mariaelena tropicalis Cardiac Studies: 2 Echocardiogram 03/05/24 Echocardiogram Ultrasound 07/18/20 Sestamibi Stress Test (Cardiology) 03/26
--- NOTE | 2024-03-09 11:13 | P.PN_ITS ---
Vitals/I&O/Wt Last Vital Signs Temp 97.3 F L 03/09/24 10:28 Pulse 79 03/09/24 10:28 Resp 18 03/09/24 10:28 BP 127/56 03/09/24 10:28 Pulse Ox 99 03/09/24 10:28 O2 Del Method Room Air 03/09/24 10:28 03/08/24 03/09/24 03/09/24 22:59 06:59 14:59 Intake Total 450 / 990 250 / 1240 Output Total 500 / 500 200 / 700 Balance -50 / 490 50 / 540 Weight last 48 hrs Weight 239 lb 1.6 oz Weight 239 lb 1.6 oz Physical Exam 2 Urinary Catheter Management: Rodas: Cath Placed During This Visit: yes Reason for Continuing Indwelling Catheter: Accurate Measurement of Urinary Output in Critically Ill Patients Urinary Catheter Date of Insertion: 03/04/24 Data 03/09/24 08:51 03/09/24 08:51 Micro: Microbiology 03/04/24 22:50 Urine Culture - Final Urine,Clean Catch Mariaelena tropicalis A&P Assessment and plan (1) GI bleeding: (2) Esophageal varices: (3) Cirrhosis: Qualifiers: Hepatic cirrhosis type: other cirrhosis Qualified Code(s): K74.69 - Other cirrhosis of liver (4) Dysphagia: (5) Thrombocytopenia: (6) Fe deficiency anemia: Qualifiers: Iron deficiency anemia type: chronic blood loss Qualified Code(s): D 50.0 - Iron deficiency anemia secondary to blood loss (chronic) Plan EGD with possible balloon dilation Colonoscopy The risks and benefits of the procedure, including bleeding, infection, intestinal perforation requiring surgery, missed lesion were explained to the patient. The patient is understanding of the risks and wishes to proceed. Attestations 2 Medical Necessity Statement*: per primary Coding Level of Care Code Acute Code for [facility] F[facility] Diagnoses GI bleeding K92.2 Esophageal varices I85.00 Other cirrhosis of liver K74.69 Hepatic cirrhosis type: other cirrhosis Dysphagia R13.10 Thrombocytopenia D69.6 Iron deficiency anemia due to chronic blood loss D50.0 Iron deficiency anemia type: chronic blood loss
--- NOTE | 2024-03-09 11:21 | PC.SOCIAL ---
IMM Updated Updated pt on IMM. No questions voiced. Provided a copy. Initialed, dated, & timed copy in chart.
--- NOTE | 2024-03-09 11:57 | ANE.PACU2 ---
Inpatient post-anesthesia follow up: Airway intact: Yes Vital signs: Temperature 97.1 F Pulse Rate 82 Respiratory Rate 16 Blood Pressure 148/82 Pulse Oximetry 95 Oxygen Delivery Me thod [ Room Air Current Rate & Del kelin] Oxygen Delivery Me thod Room Air Oxygen Flow Rate Fraction of Inspir ed Oxygen Hydration adequate: Yes Nausea and vomiting: No Pain level: 1 Mental status: Baseline
--- NOTE | 2024-03-09 12:14 | ANE.PACU2 ---
Inpatient post-anesthesia follow up: Airway intact: Yes Vital signs: Temperature 98.3 F Pulse Rate 81 Respiratory Rate 16 Blood Pressure 144/61 Pulse Oximetry 96 Oxygen Delivery Me thod [ Room Air Current Rate & Del kelin] Oxygen Delivery Me thod Room Air Oxygen Flow Rate Fraction of Inspir ed Oxygen Hydration adequate: Yes Nausea and vomiting: No Pain level: 1 Mental status: Baseline
--- NOTE | 2024-03-09 12:16 | PC.NURSE ---
Patient returned to floor, CSU, from GI lab at 1225.
--- NOTE | 2024-03-09 13:04 | PM.PN ---
Subjective Subjective: She reports she is doing okay this morning, awaiting endoscopic procedure. Without chest pain or pressure. No hematemesis. No issues with her legs. Vitals/I&O/Wt Last Vital Signs Temp 97.1 F L 03/09/24 12:36 Pulse 82 03/09/24 12:36 Resp 16 03/09/24 12:36 BP 148/82 03/09/24 12:36 Pulse Ox 95 03/09/24 12:36 O2 Del Method Room Air 03/09/24 12:36 03/08/24 03/09/24 03/09/24 22:59 06:59 14:59 Intake Total 450 / 990 250 / 1240 120 / 120 Output Total 500 / 500 200 / 700 Balance -50 / 490 50 / 540 120 / 120 Weight last 48 hrs Weight 108.454 kg Weight 108.454 kg Physical Exam Narrative: Accompanied by her . Const: COMMON NORMALS: patient oriented x3 and alert GENERAL APPEARANCE: cooperative ORIENTATION/CONSCIOUSNESS: Yes awake HENMT: COMMON NORMALS: oropharynx normal Neck/C-Spine: COMMON NORMALS: no JVD Resp: COMMON NORMALS: normal respiratory effort and clear to auscultation bilaterally AUSCULTATION: clear to auscultation bilaterally Cardio: COMMON NORMALS: no JVD, regular rhythm, S1 normal heart sound present, S2 normal heart sound present and No murmurs present (Cardio) RHYTHM: regular rhythm HEART SOUNDS: S1 normal heart sound present and S2 normal heart sound present GI: COMMON NORMALS: Normal to inspection, nondistended, normoactive bowel sounds present, Soft to palpation and non-tender PALPATION: Yes Soft to palpation Extremity: COMMON NORMALS: no joint enlargement and no pedal edema Neuro: COMMON NORMALS: patient oriented x3 and moves all extremities SENSORIUM/ORIENTATION: Yes alert Skin: COMMON NORMALS: no rashes or lesions noted GENERAL SKIN EXAM: no rashes or lesions noted Urinary Catheter Management: Rodas: Cath Placed During This Visit: yes Reason for Continuing Indwelling Catheter: Accurate Measurement of Urinary Output in Critically Ill Patients Urinary Catheter Date of Insertion: 03/04/24 Data 03/09/24 08:51 03/09/24 08:51 Micro: Microbiology 03/04/24 22:50 Urine Culture - Final Urine,Clean Catch Mariaelena tropicalis A&P Assessment and plan (1) GI bleeding: Requested additional repeat CBC today. Reviewed, hemoglobin 7.2, without change from yesterday. Platelets 142. She has been off anticoagulation and dual antiplatelet. S/p EGD and colonoscopy -with finding of nonbleeding small esophageal varices, unremarkable colonoscopy. Without active bleed. Duodenal biopsy was obtained. Prescription with the surgeon okay to resume unrestricted diet at this time, hold off antiplatelet/anticoagulant for at least 4 hours. Aspirin is resumed. Could undergo a trial of anticoagulant tolerance. Additionally if intolerant of anticoagulant discussed with her consideration could be given to left atrial appendage closure device. Reviewed endoscopy report. recent edg and colon 12/23/23. EGD showed active bleeding of duodenum. h plyori negative. bx negative. colon was also negative. Monitor for risk of rebleeding with aspirin. Repeat CBC. The question regarding anticoagulation for A-fib will be answered after EGD/colonoscopy tomorrow. In the meantime patient is anemic with a hemoglobin of 7.2 will see if this stabilizes tomorrow otherwise may need blood transfusion (2) Acute lower limb ischemia: Status post stenting per Dr. Simeon (3) Atrial fibrillation: Resuming on aspirin. Had an episode of rapid ventricular response yesterday, she was given IV doses of metoprolol and eventually converted. Now in normal sinus rhythm Qualifiers: Atrial fibrillation type: paroxysmal Qualified Code(s): I48.0 - Paroxysmal atrial fibrillation (4) Stage 3b chronic kidney disease (CKD): Noted mild worsening of renal function. Reviewed chemistry, BUN, creatinine, bicarb, anion gap, potassium. Following (5) Cirrhosis: This has been reported as due to medications? She is working with liver specialist to get down to a transplant list. Qualifiers: Hepatic cirrhosis type: other cirrhosis Qualified Code(s): K74.69 - Other cirrhosis of liver (6) Thrombocytopenia: (7) Diabetes mellitus: Reviewed blood glucose. Patient on insulin Qualifiers: Diabetes mellitus type: type 2 Diabetes mellitus jail insulin use: with assistant terminal manager use (8) Hypertension: Amlodipine, metoprolol, hydralazine Attestations Medical Necessity Statement*: Continue admission for assessment management of acute anemia LAD status post peripheral artery intervention with stenting, GI bleed, atrial fibrillation, CKD, liver cirrhosis. and High MDM includes amount and/or complexity of data reviewed/ordered [ previous or external records, resulted lab(s)/test(s), ordered lab(s)/test(s) and other healthcare professional discussion] and described risk of complication, morbidity or mortality of management as documented Diagnoses GI bleeding K92.2 Acute lower limb ischemia I99.8 Paroxysmal atrial fibrillation I48.0 Atrial fibrillation type: paroxysmal Stage 3b chronic kidney disease (CKD) N18.32 Other cirrhosis of liver K74.69 Hepatic cirrhosis type: other cirrhosis Thrombocytopenia D69.6 Diabetes mellitus E11.9 Diabetes mellitus type: type 2 Diabetes mellitus jail insulin use: with assistant terminal manager use Hypertension I10
[2024-03-09] MEDS: RIFAXIMIN 550 MG 1 EACH PO ×2 (13:17→21:00)
[2024-03-09] MEDS: amlodipine 10 mg Tablet PO (13:18)
[2024-03-09] MEDS: metoprolol tartrate 25 mg Tablet PO (13:18)
[2024-03-09] MEDS: lactulose oral liq 20 gm/30 mL UDC 10 GM PO ×2 (13:18→21:00)
[2024-03-09] MEDS: hyDRALAzine 25 mg Tablet PO (13:18)
--- NOTE | 2024-03-09 13:28 | P.PN_ITS ---
Subjective 2 Subjective: Patient was seen this morning prior to her endoscopy. She was stable from cardiac perspective, no pain in the left leg, good pulses. Slight pedal edema. 03/09/24 1526: EGD showed non bleeding esophageal varices and gastritis. Colonoscopy unremarkable, no source of bleeding identified. Will resume Plavix today, continue Protonix 40mg BID, get CBC tomorrow morning. If hemoglobin level is still low can transfuse blood. She initially requested to go home today following her endoscopy, however has decided to stay overnight to complete monitoring. Vitals/I&O/Wt Last Vital Signs Temp 97.1 F L 03/09/24 12:36 Pulse 82 03/09/24 12:36 Resp 16 03/09/24 12:36 BP 148/82 03/09/24 12:36 Pulse Ox 95 03/09/24 12:36 O2 Del Method Room Air 03/09/24 12:36 03/08/24 03/09/24 03/09/24 22:59 06:59 14:59 Intake Total 450 / 1240 250 / 1240 120 / 120 Output Total 500 / 700 200 / 700 Balance -50 / 540 50 / 540 120 / 120 Weight last 48 hrs Weight 239 lb 1.6 oz Weight 239 lb 1.6 oz Physical Exam 2 Const: COMMON NORMALS: no acute distress and patient oriented x3 GENERAL APPEARANCE: cooperative and comfortable ORIENTATION/CONSCIOUSNESS: Yes awake, Yes oriented to person, Yes oriented to place and Yes oriented to time Chest: COMMONS NORMALS: normal inspection of the chest and normal palpation of entire chest wall CHEST: Yes Symmetrical chest wall rise Resp: COMMON NORMALS: normal respiratory effort, No retractions, No use of accessory muscles and clear to auscultation bilaterally EFFORT & INSPECTION: Yes symmetric chest movement AUSCULTATION: clear to auscultation bilaterally Cardio: COMMON NORMALS: regular rate, regular rhythm, S1 normal heart sound present, S2 normal heart sound present, No gallops present (Cardio), No clicks present (Cardio), No murmurs present (Cardio) and No rub (Cardio) RATE: r egular rate RHYTHM: regular rhythm HEART SOUNDS: S1 normal heart sound present and S2 normal heart sound present PERIPHERAL PULSES: radial pulses present Extremity: COMMON NORMALS: no pedal edema Neuro: COMMON NORMALS: patient oriented x3 and moves all extremities S ENSORIUM/ORIENTATION: Yes oriented to person, Yes oriented to place and Yes oriented to time Urinary Catheter Management: Rodas: Cath Placed During This Visit: yes Reason for Continuing Indwelling Catheter: Accurate Measurement of Urinary Output in Critically Ill Patients Urinary Catheter Date of Insertion: 03/04/24 Data 03/09/24 08:51 03/09/24 08:51 Micro: Microbiology 03/04/24 22:50 Urine Culture - Final Urine,Clean Catch Mariaelena tropicalis A&P Assessment and plan (1) Acute lower limb ischemia: She is s/p thrombectomy and balloon angioplasty with stent to the left common femoral. Due to bleeding concerns, will hold all antiplatelet and anticoagulant for now, low risk of stent thrombosis/reocclusion. Plan is for endoscopy today, depending on findings will determine long-term plan with Plavix and aspirin. (2) CAD (coronary artery disease): No symptoms of coronary ischemia. Qualifiers: Associated angina: without angina Coronary Disease-Associated Artery/Lesion type: [place] artery [place] vs. transplanted heart: [place] heart Qualified Code(s): I25.10 - Atherosclerotic heart disease of [place] coronary artery without angina pectoris (3) Thrombocytopenia: Platelet count 142, stable (4) Atrial fibrillation: She is in sinus rhythm, currently holding all anticoagulation due to GI bleeding. Qualifiers: Atrial fibrillation type: paroxysmal Qualified Code(s): I48.0 - Paroxysmal atrial fibrillation (5) Stage 3b chronic kidney disease (CKD): Creatinine 2.0 today, similar to baseline. (6) Essential hypertension: Blood pressure well controlled, no significant hypotension. Continue metoprolol tartrate, hydralazine and amlodipine. Attestations 2 Medical Necessity Statement*: plan to discharge home tomorrow, determine if hemoglobin remains stable overnight after restarting Plavix. Coding Level of Care Code Acute Code for [facility] Fwd Diagnoses Acute lower limb ischemia I99.8 Coronary artery disease involving [place] coronary artery of [place] heart without angina pectoris I25.10 Associated angina: without angina Coronary Disease-Associated Artery/Lesion type: [place] artery [place] vs. transplanted heart: [place] heart Thrombocytopenia D69.6 Paroxysmal atrial fibrillation I48.0 Atrial fibrillation type: paroxysmal Stage 3b chronic kidney disease (CKD) N18.32 Essential hypertension I10
--- NOTE | 2024-03-09 15:02 | P.DS_ITS ---
Discharge Providers Date of Admission: 03/04/24 16:22 Date of Discharge: March 09, 2024 Attending Provider at Admission: Humphrey Noland MD Attending Provider at Discharge: Humphrey Noland MD Consults: Hospitalist service Dr Cook, general surgery Primary Care Provider: Jovan Singer MD Diagnoses at Discharge Discharge Diagnosis (1) GI bleeding: Status: Acute (2) Acute lower limb ischemia: Status: Acute (3) Atrial fibrillation: Status: Acute Qualifiers: Atrial fibrillation type: paroxysmal Qualified Code(s): I48.0 - Paroxysmal atrial fibrillation Permanent problem details: History of atrial fibrillation postoperatively. (4) Stage 3b chronic kidney disease (CKD): Status: Acute (5) Cirrhosis: Status: Acute Qualifiers: Hepatic cirrhosis type: other cirrhosis Qualified Code(s): K74.69 - Other cirrhosis of liver Permanent problem details: Attributed to diabetes and chronic pain medication use her patient (6) Thrombocytopenia: Status: Chronic (7) Diabetes mellitus: Status: Acute Qualifiers: Diabetes mellitus type: type 2 Diabetes mellitus halfway insulin use: with halfway use (8) Hypertension: Status: Acute (9) CAD (coronary artery disease): Status: Acute Qualifiers: Coronary Disease-Associated Artery/Lesion type: [place] artery [place] vs. transplanted heart: [place] heart Associated angina: without angina Qualified Code(s): I25.10 - Atherosclerotic heart disease of [place] coronary artery without angina pectoris (10) Essential hypertension: Status: Acute Reason for Visit Reason for Visit: left leg pain Brief History: Jacquelin Whiteside is a 58 year old female past medical history significant for coronary artery disease status post CABG in 2006, diabetes mellitus uncontrolled, thrombocytopenia, chronic kidney disease, history of atrial fibrillation, hypertension hyperlipidemia liver cirrhosis status post pacemaker presented with left cold leg with excruciating pain. Left leg appeared to be mottled icy cold she does not have much sensory or motor sensation, she is not able to wiggle the toes. She was felt to have critical limb threatening ischemia and was taken to the [facility] Physical Exam Urinary Catheter Management: Rodas: Cath Placed During This Visit: yes Reason for Continuing Indwelling Catheter: Accurate Measurement of Urinary Output in Critically Ill Patients Urinary Catheter Date of Insertion: 03/04/24 Discharge Data Studies Completed and Pending Completed Studies During Hospitalization Category [place] [address] Stat Ultrasound 03/04/24 13:34 Completed CV. echo complete* [id number] Routine Ultrasound 03/05/24 16:08 Completed US venous duplex lower extremity LT [CV venous duplex Ultrasound 03/04/24 12:57 [place] [address]] Stat Pending at discharge Category Date Time Status CHIEF MEDICAL PHYSICIST request for service Stat Exams 03/04/24 14:09 Taken Blood Culture Stat Lab 03/04/24 14:13 Results CBC Auto Diff [Complete Blood Count w/Auto] AM LABS Lab 03/10/24 04:00 Ordered Comprehensive Metabolic Panel AM LABS Lab 03/10/24 04:00 Ordered Pathology: Surgical [PTH] Routine Pth 03/09/24 11:54 Received Radiology Impressions Duplex Scan Lower Extremity Artery 03/04/24 13:34 IMPRESSION: Extensive arterial occlusion. ADDENDUM: 03/04/24 1418 THIS REPORT CONTAINS FINDINGS THAT MAY BE CRITICAL TO PATIENT CARE. The findings were verbally communicated via telephone conference with Dr. Pederson at 2:16 PM BEEF BREAKER on 03/04/2024. The findings were acknowledged and understood. Laboratory Results WBC 11.06 10^3/uL (3.29-11.43) 03/09/24 08:51 RBC 2.55 10^6/uL (3.85-5.65) L 03/09/24 08:51 Hgb 7.20 g/dL (11.27-16.99) L 03/09/24 08:51 Hct 23.8 % (36-47) L 03/09/24 08:51 MCV 93.3 fl (85-98) 03/09/24 08:51 MCH 28.2 pg (27-33) 03/09/24 08:51 MCHC 30.3 g/dL (30-55) 03/09/24 08:51 RDW 18.5 % (12.1-15.1) H 03/09/24 08:51 Plt Count 142 10^3/cmm (157-399) L 03/09/24 08:51 MPV 10.6 fL (7.4-10.4) H 03/09/24 08:51 Neut % (Auto) 82.4 % 03/09/24 08:51 Lymph % (Auto) 5.3 % 03/09/24 08:51 [place] % (Auto) 9.9 % 03/09/24 08:51 Eos % (Auto) 1.5 % 03/09/24 08:51 Baso % (Auto) 0.3 % 03/09/24 08:51 Neut # (Auto) 9.11 10^3/uL (1.8-7.7) H 03/09/24 08:51 Lymph # (Auto) 0.6 10^3/uL (0.8-4.8) L 03/09/24 08:51 [place] # (Auto) 1.1 10^3/uL (0.2-0.9) H 03/09/24 08:51 Eos # (Auto) 0.2 10^3/uL (0.0-0.8) 03/09/24 08:51 Baso # (Auto) 0.0 10^3/uL (0.0-0.1) 03/09/24 08:51 Nucleated RBC % (auto) 0 % 03/09/24 08:51 Nucleated RBCs # 0.0 /100WBC 03/09/24 08:51 APTT 34.3 SECONDS (23.9-36.7) 03/05/24 00:54 Specimen Type Arterial 03/04/24 20:28 Sample Site Brachial, right 03/04/24 20:28 ABG pH 7.33 (7.35-7.45) L 03/04/24 20: ABG pCO2 38.3 mmHg (35-45) 03/04/24 20: ABG pO2 77.7 mmHg (80.0-100.0) L 03/04/24 20: ABG HCO3 20.2 mmol/L (22-26) L 03/04/24 20:28 ABG O2 Saturation 95.6 03/04/24 20: ABG Base Excess -5.3 mmol/L (-2.0-2.0) L 03/04/24 20:28 Mike Test N/a 03/04/24 20: A-a O2 Gradient 3.0 mmHg (5-10) L 03/04/24 20: Hematocrit 32.6 % (37-47) L 03/04/24 20: Hgb O2 Saturation 93.2 % (95-100) L 03/04/24 20: Carboxyhemoglobin 1.5 %THgb (0.4-20.1) 03/04/24 20:28 Methemoglobin 1.0 % (0.4-1.5) 03/04/24 20:28 Total Hemoglobin 10.6 g/dL (12-16) L 03/04/24 20:28 Sodium 131.0 mmol/L (131-143) 03/04/24 20:28 Potassium 6.3 mmol/L (3.5-5.0) H 03/04/24 20:28 Glucose 447.0 mg/dL (70-115) H 03/04/24 20:28 Ionized Calcium 1.2 mmol/L (1.1-1.4) 03/04/24 20:28 O2 Delivery Device Room air 03/04/24 20:28 Associate Professor Of Automation ID [id number] 03/04/24 20:28 Sodium 132 mmol/L (136-145) L 03/09/24 08:51 Potassium 3.8 mmol/L (3.5-5.1) 03/09/24 08:51 Chloride 104 mmol/L (98-107) 03/09/24 08:51 Carbon Dioxide 17 mmol/L (22-29) L 03/09/24 08:51 Anion Gap 14.8 (5-19) 03/09/24 08:51 BUN 33 mg/dL (8-23) H 03/09/24 08:51 Creatinine 2.0 mg/dL (0.5-0.9) H 03/09/24 08:51 GFR Calculation 25.4 mL/min (90-130) L 03/09/24 08:51 Glucose 193 mg/dL (65-115) H 03/09/24 08:51 POC Glucose 295 mg/dL (70-110) H 03/06/24 12:07 Estimat Average Glucose 283 03/05/24 04:00 Hemoglobin A1c 11.5 % (4.0-6.0) H 03/05/24 04:00 Calculated Osmolality 287 mOsm/kg (285-295) 03/09/24 08:51 Lactic Acid 2.9 mmol/L (0.5-2.2) H 03/04/24 18:09 Lactic Acid (Sepsis) 3.3 mmol/L (0.5-2.2) H 03/04/24 22:54 Calcium 7.5 mg/dL (8.5-10.5) L 03/09/24 08:51 Phosphorus 5.1 mg/dL (2.5-4.5) H 03/05/24 04:00 Magnesium 2.7 mg/dL (1.7-2.3) H 03/05/24 04:00 Total Bilirubin 1.2 mg/dL (0.15-1.2) 03/09/24 08:51 AST 154 U/L (0-32) H 03/09/24 08:51 ALT 50 U/L (0-33) H 03/09/24 08:51 Alkaline Phosphatase 216 U/L (35-105) H 03/09/24 08:51 Creatine Kinase 123 U/L (26-192) 03/04/24 18:09 Total Protein 6.1 g/dL (6.6-8.7) L 03/09/24 08:51 Albumin 2.9 g/dL (3.5-5.2) L 03/09/24 08:51 Globulin 3.2 g/dL (1.3-4.6) 03/09/24 08:51 Triglycerides 140 mg/dL (0-150) 03/05/24 04:00 Cholesterol 195 mg/dL (0-200) 03/05/24 04:00 LDL Cholesterol, Calc 130 mg/dL (50-129) H 03/05/24 04:00 HDL Cholesterol 37 mg/dL (60-100) L 03/05/24 04:00 LDL/HDL Ratio 3.51 RATIO (0.00-3.22) H 03/05/24 04:00 Cholesterol/HDL Ratio 5.27 mg/dL (0.0-4.40) H 03/05/24 04:00 Procalcitonin 2.12 ng/mL (0-0.5) H 03/05/24 04:00 TSH 1.26 uIU/mL (0.27-4.20) 03/04/24 18:09 Urine Color Yellow (Yellow) 03/04/24 22:50 Urine Appearance Clear (CLEAR) 03/04/24 22:50 Urine pH 5.0 (5-7) 03/04/24 22:50 Ur Specific [place] 1.031 (1.005-1.030) H 03/04/24 22:50 Urine Protein Negative (Negative) 03/04/24 22:50 Urine Glucose (UA) 3+ (Normal) H 03/04/24 22:50 Urine Ketones Negative (Negative) 03/04/24 22:50 Urine Blood 2+ (Negative) A 03/04/24 22:50 Urine Nitrate Negative (Negative) 03/04/24 22:50 Urine Bilirubin Negative (Negative) 03/04/24 22:50 Urine Urobilinogen 0.2 mg/dL (Negative) 03/04/24 22:50 Ur Leukocyte Esterase 1+ (Negative) A 03/04/24 22:50 Urine RBC 11-20 /hpf (0-2) H 03/04/24 22:50 Urine WBC 21-50 /hpf (0-5) H 03/04/24 22:50 Ur Squamous Epith Cells 0-5 /hpf (0-5) 03/04/24 22:50 Amorphous Sediment Not Reportable 03/04/24 22:50 Urine Bacteria Trace /hpf (NONE) 03/04/24 22:50 Hyaline Casts 2.05 /lpf 03/04/24 22:50 Urine Yeast 1+ /hpf H 03/04/24 22:50 Nasal MRSA (PCR) Not detected (Not Detecte) 03/04/24 22:58 Serum Ketones Negative (Negative) 03/04/24 18:09 Vitals Last Vital Signs Temp 97.1 F L 03/09/24 12:36 Pulse 82 03/09/24 12:36 Resp 16 03/09/24 12:36 BP 148/82 03/09/24 12:36 Pulse Ox 95 03/09/24 12:36 O2 Del Method Room Air 03/09/24 12:36 Discharge Plan Discharge Patient Disposition: Home Condition: Stable Prescriptions: No Action spironolactone 50 mg tablet 50 mg PO DAILY Qty: 90 2RF ondansetron 8 mg tablet,disintegrating 8 mg PO Q8H PRN (Reason: nausea and vomiting) Qty: 10 0RF (DME) lancing device with lancets Kit See Rx Instructions .ROUTE .MEDSUPPLY Qty: 1 0RF Rx Instructions: As directed (DME) blood-glucose meter Kit See Rx Instructions .Route Qty: 1 11RF Rx Instructions: mauricio 14 with sensors and patches (DME) Blood Glucose Test Strip See Rx Instructions .ROUTE .MEDSUPPLY Qty: 100 6RF Rx Instructions: TEST UP TO 4 TIMES A DAY (DME) FreeStyle Mauricio 14 Day [place] Misc See Rx Instructions .Route Qty: 1 2RF Rx Instructions: As directed (DME) lancets 33 gauge misc See Rx Instructions .ROUTE .MEDSUPPLY Qty: 100 12RF Rx Instructions: test 4 times daily insulin glargine [Lantus Solostar U-100 Insulin] 100 unit/mL (3 mL) insulin pen 50 unit SUBCUT BID Qty: 30 4RF insulin lispro [Humalog KwikPen Insulin] 100 unit/mL insulin pen See Rx Instructions .ROUTE .COMPLEX Qty: 45 3RF Dose Instruction: INJECT using sliding scale THREE TIMES DAILY; max of 51 units DAILY Rx Instructions: INJECT using sliding scale THREE TIMES DAILY; max of 51 units DAILY (DME) FreeStyle Mauricio 14 Day Sensor Kit See Rx Instructions .ROUTE .COMPLEX Qty: 1 5RF Dose Instruction: USE directed Rx Instructions: USE directed lactulose [Constulose] 10 gram/15 mL solution See Rx Instructions .ROUTE .COMPLEX Qty: 946 3RF Dose Instruction: take 30g (45ml) BY MOUTH TWICE DAILY MAY titrate DOSE TO 3 TO 4 soft bowel movements/day Rx Instructions: take 30g (45ml) BY MOUTH THREE TO FOUR TIMES DAILY, MAY titrate DOSE TO 2 soft bowel movements/day pantoprazole 40 mg tablet,delayed release (DR/EC) 40 mg PO DAILY Qty: 90 0RF (DME) pen needle, diabetic [BD Ultra-Fine Short Pen Needle] 31 gauge x 5/16 needle See Rx Instructions .ROUTE .COMPLEX Qty: 100 3RF Dose Instruction: USE DIRECTED Rx Instructions: USE DIRECTED morphine 30 mg tablet extended release 30 mg PO Q12H PRN (Reason: Pain) 30 Days Qty: 60 0RF irbesartan 75 mg tablet 75 mg PO DAILY furosemide [Lasix] 20 mg tablet 20 mg PO DAILY PRN (Reason: Edema) carvedilol 3.125 mg tablet 3.125 mg PO BID naloxone 4 mg/actuation spray,non-aerosol See Rx Instructions .ROUTE .COMPLEX Rx Instructions: USE 1 SPRAY IN 1 NOSTRIL ALTERNATING NOSTRILS IF NO RESULTS IN 3 MINUTES. nitroglycerin 0.4 mg tablet, sublingual See Rx Instructions .ROUTE .COMPLEX PRN (Reason: Chest Pain) Rx Instructions: DISSOLVE 1 TABLET UNDER TONGUE MAY REPEAT EVERY 5 MINUTES FOR A TOTAL OF 3 TABLETS NEEDED FOR CHEST PAIN Xifaxan 550 mg tablet 550 mg PO BID Jardiance 10 mg tablet 10 mg PO QAM Referrals: Jovan Singer MD [Primary Care Provider] - Patient Instructions: Opioid Safety Discharge Attestations Status at Discharge: Cognitive status at discharge: cognitively intact , Behavioral status at discharge: cooperative , Coding Level of Care Code Acute Code for [facility] Fwd Diagnoses GI bleeding K92.2 Acute lower limb ischemia I99.8 Paroxysmal atrial fibrillation I48.0 Atrial fibrillation type: paroxysmal Stage 3b chronic kidney disease (CKD) N18.32 Other cirrhosis of liver K74.69 Hepatic cirrhosis type: other cirrhosis Thrombocytopenia D69.6 Diabetes mellitus E11.9 Diabetes mellitus type: type 2 Diabetes mellitus halfway insulin use: with halfway use Hypertension I10 Coronary artery disease involving [place] coronary artery of [place] heart without angina pectoris I25.10 Coronary Disease-Associated Artery/Lesion type: [place] artery [place] vs. transplanted heart: [place] heart Associated angina: without angina Essential hypertension I10
--- NOTE | 2024-03-09 16:00 | PC.NURSE ---
Provider is contacted about patient's plavix order, it currently is to restart on 03/10 at 0900. Provider wants to give a dose now. Order is placed for a one time dose to give now.
[2024-03-09] MEDS: sucralfate 1 gm Tablet PO (16:25)
[2024-03-09] MEDS: clopidogrel 75 mg Tablet PO (16:25)
--- NOTE | 2024-03-09 17:00 | PC.NURSE ---
Patients dexcom read 241 at 1640.
[2024-03-09] MEDS: pantoprazole DR 40 mg Tablet PO (17:12)
[2024-03-09] MEDS: insulin glargine 100 units/1 mL 50 UNIT SUBCUT (17:12)
[2024-03-09] MEDS: insulin lispro 100 unit/1 mL SUBCUT ×2 (17:13→21:38)
--- NOTE | 2024-03-09 18:40 | PC.NURSE ---
Patient and are asking why she has not gotten her home doses of lasix and spironolactone? Her home doses are lasix 20mg PO daily PRN edema and spironolactone 50mg PO daily. Per provider they are on hold due to her kidney injury.
--- NOTE | 2024-03-09 20:39 | PC.NURSE ---
Dexcom was reading 352 for blood sugar nurse notified.
[2024-03-09] MEDS: atorvastatin 40 mg Tablet 80 MG PO (21:00)
--- NOTE | 2024-03-09 21:36 | PC.NURSE ---
Spoke with about the patients medications. The patient is due for propanolol 25mg and hydralizine 25mg but her bp was 97/45 and HR 61. said to hold both medications for tonights dose.
[2024-03-09] MEDS: temazepam 15 mg Capsule PO (21:54)
[2024-03-09] MEDS: ALPRAZolam 0.5 mg Tablet 0.25 MG PO (21:57)
[2024-03-10] VITALS (35 sets, daily range): BP systolic 95–178; BP diastolic 46–83; PULSE 61–97; RESP 10–32; TEMP -13.1–38.1; O2SAT 15–97; BMI 41.1
--- NOTE | 2024-03-10 00:52 | PC.NURSE ---
Dexcom read 314 for blood sugar nurse notified
[2024-03-10 04:53] LABS: Basophils % 0.3 %; Eosinophils # 0.1 10^3/uL (0.0-0.8); Eosinophils % 1.8 %; Hematocrit 22.4 % (36-47); Lymphocytes # 0.8 10^3/uL (0.8-4.8); Lymphocytes % 9.8 %; Mean Corpuscular HGB Conc 30.4 g/dL (30-55); Mean Corpuscular Hemoglobin 28.1 pg (27-33); Mean Corpuscular Volume 92.6 fl (85-98); Mean Platelet Volume 10.4 fL (7.4-10.4); Monocytes # 0.9 10^3/uL (0.2-0.9); Monocytes % 10.8 %; Neutrophils # 6.11 10^3/uL (1.8-7.7); Neutrophils % 76.8 %; Nucleated Red Blood Cells % 0 %; Platelet Count 123 10^3/cmm (157-399); Red Blood Count 2.42 10^6/uL (3.85-5.65); Red Cell Distribution Width 18.5 % (12.1-15.1); White Blood Count 7.95 10^3/uL (3.29-11.43)
[2024-03-10 05:20] LABS: Ferritin 47 ng/mL (15-150)
[2024-03-10 05:21] LABS: Alanine Aminotransferase 48 U/L (0-33); Albumin Level 2.9 g/dL (3.5-5.2); Alkaline Phosphatase 235 U/L (35-105); Anion Gap 14.3 (5-19); Aspartate Amino Transferase 129 U/L (0-32); Blood Urea Nitrogen 38 mg/dL (8-23); Calcium 7.4 mg/dL (8.5-10.5); Carbon Dioxide 18 mmol/L (22-29); Chloride 104 mmol/L (98-107); Creatinine Clr Calc Pharmacy 27.6203; Globulin 3.5 g/dL (1.3-4.6); Glucose 279 mg/dL (65-115); Iron 31 ug/dL (37-145); Osmolality Calculated 293 mOsm/kg (285-295); Percent Saturation 12.4 % (20-50); Potassium 4.3 mmol/L (3.5-5.1); Sodium 132 mmol/L (136-145); Total Bilirubin 0.9 mg/dL (0.15-1.2); Total Iron Binding Capacity 250 mcg/dl; Total Protein 6.4 g/dL (6.6-8.7); Unsaturated Iron Binding 219 ug/dL (112-347)
--- NOTE | 2024-03-10 06:16 | PC.NURSE ---
Spoke with regarding patients drop in H/H. ordered to check type and screen now and decision to transfuse can be left up to the attending.
[2024-03-10] MEDS: sucralfate 1 gm Tablet PO (06:32)
--- NOTE | 2024-03-10 06:32 | PC.NURSE ---
patients blood glucose on dexcom was 251 at this time.
--- NOTE | 2024-03-10 07:56 | P.PN_ITS ---
<Statement entered by Humphrey Noland MD - 03/10/24 23:01> Patient was evaluated and cared for in conjunction with an advanced practice practitioner. I personally examined the patient and reviewed the chart and all pertinent data including imaging, telemetry, and laboratory results. I discussed the patient in detail with the advanced practice practitioner. Please see their note for complete H&P testing result and agreed upon plan of care for the patient. Patient was noted to be confused ammonia o level was higher than 240 GENERAL: Patient is arousable but somnolent HEART: Regular S1 and S2. No murmur, rub or gallop. LUNGS: Clear to auscultate bilaterally. CENTRAL NERVOUS SYSTEM: Grossly nonfocal. EXTREMITIES: Lower extremities with out edema bilaterally. Good pulses in the left lower extremity and in posterior tibial Assessment and plan Confusion most likely secondary to hepatic encephalopathy Constipation GI bleed status posttransfusion EGD/colonoscopy Acute left lower limb ischemia status post percutaneous angioplasty with excellent result and rastafarian of the flow Paroxysmal atrial fibrillation rate controlled Coronary artery disease history of CABG Hypertension Given worsening of fatigue somnolence and high ammonia level patient appeared to be more constipated Recommend moving to ICU placing NG and starting mag citrate to improve bowel movement Recommend Fleet enema every 4-hour x 3 Hold lactulose for now and restart once start taking by mouth Continue to monitor blood sugar closely Continue to monitor patient neurological and hemodynamical signs closely Continue holding anticoagulation Rule out infection such as UTI Subjective 2 Subjective: She decided to stay overnight rather than discharge yesterday. CBC this morning shows hemoglobin 6.8, will transfuse 2 units PRBC today, 20mg IV Lasix between units if needed. Her LVEF is normal, no diastolic dysfunction. Once the blood is given will observe and possibly discharge home later today, depending on condition. We can check CBC tomorrow morning if she is still here, if she insists on discharge we can check labs outpatient. Blood pressure stable, no hypotension. Vitals/I&O/Wt Last Vital Signs Temp 98.7 F 03/10/24 07:38 Pulse 76 03/10/24 07:38 Resp 18 03/10/24 07:38 BP 113/61 03/10/24 07:38 Pulse Ox 97 03/10/24 07:38 O2 Del Method Room Air 03/10/24 07:38 03/09/24 03/10/24 03/10/24 22:59 06:59 14:59 Intake Total 610 / 730 0 / 730 Output Total 50 / 150 100 / 150 Balance 560 / 580 -100 / 580 Weight last 48 hrs Weight 258 lb 11.2 oz Weight 239 lb 1.6 oz Physical Exam 2 Const: COMMON NORMALS: no acute distress and patient oriented x3 GENERAL APPEARANCE: cooperative and comfortable ORIENTATION/CONSCIOUSNESS: Yes awake, Yes oriented to person, Yes oriented to place and Yes oriented to time Chest: COMMONS NORMALS: normal inspection of the chest and normal palpation of entire chest wall CHEST: Yes Symmetrical chest wall rise Resp: COMMON NORMALS: normal respiratory effort, No retractions, No use of accessory muscles and clear to auscultation bilaterally EFFORT & INSPECTION: Yes symmetric chest movement AUSCULTATION: clear to auscultation bilaterally Cardio: COMMON NORMALS: regular rate, regular rhythm, S1 normal heart sound present, S2 normal heart sound present, No gallops present (Cardio), No clicks present (Cardio), No murmurs present (Cardio) and No rub (Cardio) RATE: r egular rate RHYTHM: regular rhythm HEART SOUNDS: S1 normal heart sound present and S2 normal heart sound present PERIPHERAL PULSES: radial pulses present Extremity: COMMON NORMALS: no pedal edema Neuro: COMMON NORMALS: patient oriented x3 and moves all extremities S ENSORIUM/ORIENTATION: Yes oriented to person, Yes oriented to place and Yes oriented to time Urinary Catheter Management: Rodas: Cath Placed During This Visit: yes Reason for Continuing Indwelling Catheter: Acute Urinary Retention or Obstruction Urinary Catheter Date of Insertion: 03/04/24 Data 03/10/24 04:38 03/10/24 04:38 Micro: Microbiology 03/04/24 14:13 Blood Culture - Final Blood NO GROWTH AFTER 5 DAYS 03/04/24 14:10 Blood Culture - Final Blood NO GROWTH AFTER 5 DAYS A&P Assessment and plan (1) Acute lower limb ischemia: Left leg has good pulses, no pain. For now continue Plavix, she has not had any more bloody stools. Hold aspirin. (2) Hypertension: BP stable, hold amlodipine and hydralazine if BP less than 120 systolic. (3) Atrial fibrillation: She has been in sinus rhythm so far. Hold Xarelto. Qualifiers: Atrial fibrillation type: paroxysmal Qualified Code(s): I48.0 - Paroxysmal atrial fibrillation (4) CAD (coronary artery disease): No symptoms of coronary ischemia. Qualifiers: Associated angina: without angina Coronary Disease-Associated Artery/Lesion type: [place] fork artery [place] vs. transplanted heart: north fork heart Qualified Code(s): I25.10 - Atherosclerotic heart disease of [place] coronary artery without angina pectoris (5) Acute blood loss anemia (ABLA): Plan to transfuse 2 units of blood today, hemoglobin 6.8. Attestations 2 Medical Necessity Statement*: needs blood transfusion today Coding Level of Care Code Acute Code for [facility] Diagnoses Acute lower limb ischemia I99.8 Hypertension I10 Paroxysmal atrial fibrillation I48.0 Atrial fibrillation type: paroxysmal Coronary artery disease involving [place] coronary artery of [place] heart without angina pectoris I25.10 Associated angina: without angina Coronary Disease-Associated Artery/Lesion type: [place] artery [place] vs. transplanted heart: north fork heart Acute blood loss anemia (ABLA) D62
[2024-03-10] MEDS: insulin lispro 100 unit/1 mL SUBCUT ×3 (07:58→21:41)
[2024-03-10] MEDS: insulin glargine 100 units/1 mL 50 UNIT SUBCUT ×2 (07:58→17:12)
[2024-03-10] MEDS: lactulose oral liq 20 gm/30 mL UDC 10 GM PO ×2 (07:59→13:38)
[2024-03-10] MEDS: pantoprazole DR 40 mg Tablet PO (07:59)
[2024-03-10] MEDS: clopidogrel 75 mg Tablet PO (07:59)
[2024-03-10] MEDS: RIFAXIMIN 550 MG 1 EACH PO (08:00)
--- NOTE | 2024-03-10 08:17 | PC.NURSE ---
propranolol, hydralizine, and amlodipine held due to 's complaint of low blood pressure. Looking back at vitals, patient's blood pressure has been soft with maps in the lower 60s
--- NOTE | 2024-03-10 09:51 | P.PN_ITS ---
Subjective 2 Subjective: Hemoglobin decreased to 6.8 on this morning's labs. Will transfuse 2 units PRBC with Lasix 20mg IV PRN between units. No pain in the left leg, good pulses, edema is improved. Yesterday she was insisting to go home, then decided to stay. Will re-evaluate later in the day for discharge, if not today will discharge in the morning. Plan to recheck CBC tomorrow if she is still here, if not can get outpatient labs to monitor hemoglobin on the Plavix. Vitals/I&O/Wt Last Vital Signs Temp 98.5 F 03/10/24 09:24 Pulse 79 03/10/24 09:24 Resp 16 03/10/24 09:24 BP 115/83 03/10/24 09:24 Pulse Ox 96 03/10/24 09:24 O2 Del Method Room Air 03/10/24 07:38 03/09/24 03/10/24 03/10/24 22:59 06:59 14:59 Intake Total 610 / 730 0 / 730 120 / 120 Output Total 50 / 150 100 / 150 Balance 560 / 580 -100 / 580 120 / 120 Weight last 48 hrs Weight 258 lb 11.2 oz Weight 239 lb 1.6 oz Physical Exam 2 Const: COMMON NORMALS: no acute distress and patient oriented x3 GENERAL APPEARANCE: cooperative and comfortable ORIENTATION/CONSCIOUSNESS: Yes awake, Yes oriented to person, Yes oriented to place and Yes oriented to time Chest: COMMONS NORMALS: normal inspection of the chest and normal palpation of entire chest wall CHEST: Yes Symmetrical chest wall rise Resp: COMMON NORMALS: normal respiratory effort, No retractions, No use of accessory muscles and clear to auscultation bilaterally EFFORT & INSPECTION: Yes symmetric chest movement AUSCULTATION: clear to auscultation bilaterally Cardio: COMMON NORMALS: regular rate, regular rhythm, S1 normal heart sound present, S2 normal heart sound present, No gallops present (Cardio), No clicks present (Cardio), No murmurs present (Cardio) and No rub (Cardio) RATE: r egular rate RHYTHM: regular rhythm HEART SOUNDS: S1 normal heart sound present and S2 normal heart sound present PERIPHERAL PULSES: radial pulses present Extremity: COMMON NORMALS: no pedal edema Neuro: COMMON NORMALS: patient oriented x3 and moves all extremities S ENSORIUM/ORIENTATION: Yes oriented to person, Yes oriented to place and Yes oriented to time Urinary Catheter Management: Rodas: Cath Placed During This Visit: yes Reason for Continuing Indwelling Catheter: Acute Urinary Retention or Obstruction Urinary Catheter Date of Insertion: 03/04/24 Data 03/10/24 04:38 03/10/24 04:38 Micro: Microbiology 03/04/24 14:13 Blood Culture - Final Blood NO GROWTH AFTER 5 DAYS 03/04/24 14:10 Blood Culture - Final Blood NO GROWTH AFTER 5 DAYS Coding Level of Care Code Acute Code for [facility]
--- NOTE | 2024-03-10 11:11 | PM.PN ---
Subjective Subjective: No acute events overnight. No episodes of bloody bowel movements overnight. Patient's hemoglobin today is 6.8 downtrending from yesterday. Cardiology ordered 2 units of PRBC. Vitals/I&O/Wt Last Vital Signs Temp 98.5 F 03/10/24 09:24 Pulse 80 03/10/24 10:39 Resp 20 H 03/10/24 10:39 BP 135/58 03/10/24 10:39 Pulse Ox 95 03/10/24 10:39 O2 Del Method Room Air 03/10/24 07:38 03/09/24 03/10/24 03/10/24 22:59 06:59 14:59 Intake Total 610 / 730 0 / 730 120 / 120 Output Total 50 / 50 100 / 150 Balance 560 / 680 -100 / 580 120 / 120 Weight last 48 hrs Weight 117.344 kg Weight 108.454 kg Physical Exam Const: COMMON NORMALS: no acute distress, patient oriented x3 and alert HENMT: COMMON NORMALS: normocephalic, atraumatic, external ears normal, Normal external nose present, moist oral mucous membranes and oropharynx normal HEAD & SCALP: normocephalic and atraumatic NOSE: Normal external nose present EXTERNAL EAR: Yes external ears normal Eye: COMMON NORMALS: Equal, round and reactive pupils present, EOMs intact bilaterally, conjunctivae normal and no scleral icterus CONJUNCTIVA: Yes conjunctivae normal PUPIL: Yes Equal, round and reactive pupils present Neck/C-Spine: COMMON NORMALS: full ROM, no lymphadenopathy and no JVD Chest: COMMONS NORMALS: normal inspection of the chest Resp: COMMON NORMALS: normal respiratory effort and clear to auscultation bilaterally AUSCULTATION: clear to auscultation bilaterally OTHER: No wheezes or crcakles Cardio: COMMON NORMALS: no JVD, regular rate, regular rhythm, S1 normal heart sound present and S2 normal heart sound present RATE: regular rate RHYTHM: regular rhythm HEART SOUNDS: S1 normal heart sound present and S2 normal heart sound present GI: COMMON NORMALS: Normal to inspection, nondistended, normoactive bowel sounds present, Soft to palpation and non-tender PALPATION: Yes Soft to palpation Extremity: COMMON NORMALS: normal to inspection and no pedal edema Neuro: COMMON NORMALS: patient oriented x3 SENSORIUM/ORIENTATION: Yes alert OTHER: No gross focal deficits Urinary Catheter Management: Rodas: Cath Placed During This Visit: yes Reason for Continuing Indwelling Catheter: Acute Urinary Retention or Obstruction Urinary Catheter Date of Insertion: 03/04/24 Data 03/10/24 04:38 03/10/24 04:38 Micro: Microbiology 03/04/24 14:13 Blood Culture - Final Blood NO GROWTH AFTER 5 DAYS 03/04/24 14:10 Blood Culture - Final Blood NO GROWTH AFTER 5 DAYS A&P Assessment and plan (1) GI bleeding: - Hemoglobin today is 6.8 -Patient will receive 2 units of PRBC -She remains on Plavix, no bloody stools overnight - She is S/p EGD and colonoscopy -with finding of nonbleeding small esophageal varices, unremarkable colonoscopy. Without active bleed. Duodenal biopsy was obtained. -Additionally if intolerant of anticoagulant discussed with her consideration could be given to left atrial appendage closure device. Reviewed endoscopy report. -Other anticoagulation is currently held -Patient may be discharged today by cardiology for outpatient follow-up. Repeat CBC in the a.m. if patient remains in the hospital -Referral for follow-up with surgery for capsule endoscopy. (2) Acute lower limb ischemia: Status post stenting per Dr. Simeon Plavix currently resumed (3) Atrial fibrillation: - Xarelto currently held. Now in normal sinus rhythm Qualifiers: Atrial fibrillation type: paroxysmal Qualified Code(s): I48.0 - Paroxysmal atrial fibrillation (4) Stage 3b chronic kidney disease (CKD): Creatinine worsening today . Patient will receive blood transfusion today . Repeat renal function panel in the a.m. (5) Cirrhosis: This has been reported as due to medications? She is working with liver specialist to get down to a transplant list. Qualifiers: Hepatic cirrhosis type: other cirrhosis Qualified Code(s): K74.69 - Other cirrhosis of liver (6) Thrombocytopenia: (7) Diabetes mellitus: Reviewed blood glucose. 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 (8) Hypertension: Amlodipine, metoprolol, hydralazine Attestations Medical Necessity Statement*: Continue admission for assessment management of acute anemia LAD status post peripheral artery intervention with stenting, GI bleed, atrial fibrillation, CKD, liver cirrhosis Coding Level of Care Code Acute Code for [facility] Diagnoses GI bleeding K92.2 Acute lower limb ischemia I99.8 Paroxysmal atrial fibrillation I48.0 Atrial fibrillation type: paroxysmal Stage 3b chronic kidney disease (CKD) N18.32 Other cirrhosis of liver K74.69 Hepatic cirrhosis type: other cirrhosis Thrombocytopenia D69.6 Diabetes mellitus E11.9 Diabetes mellitus type: type 2 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
[2024-03-10] MEDS: FUROsemide 10 mg/mL SDV 2mL 20 MG IVP (12:01)
--- NOTE | 2024-03-10 12:23 | PC.NURSE ---
patient's dexcom reading at noon was 249
--- NOTE | 2024-03-10 12:26 | PC.NURSE ---
20mg IVP Lasix given per Brianne Hyman for abdominal distention and edema.
[2024-03-10 15:40] LABS: Ammonia 243 umol/L (11-51)
[2024-03-10 18:07] LABS: Basophils % 0.3 %; Eosinophils # 0.1 10^3/uL (0.0-0.8); Eosinophils % 0.9 %; Hematocrit 23.5 % (36-47); Lymphocytes # 0.6 10^3/uL (0.8-4.8); Mean Corpuscular HGB Conc 32.3 g/dL (30-55); Mean Corpuscular Hemoglobin 27.6 pg (27-33); Mean Corpuscular Volume 85.5 fl (85-98); Mean Platelet Volume 10.9 fL (7.4-10.4); Monocytes % 10.4 %; Neutrophils # 8.23 10^3/uL (1.8-7.7); Neutrophils % 81.9 %; Nucleated Red Blood Cells % 0.2 %; Platelet Count 107 10^3/cmm (157-399); Red Blood Count 2.75 10^6/uL (3.85-5.65); Red Cell Distribution Width 18.2 % (12.1-15.1); White Blood Count 10.04 10^3/uL (3.29-11.43)
--- NOTE | 2024-03-10 18:39 | XRR_ITS ---
PROCEDURE INFORMATION: Exam: XR Chest Exam date and time: 03/10/2024 8:15 PM Age: 58 years old Clinical indication: Device placement; Ng tube; Prior surgery; Surgery date: 6+ months; Surgery type: Pacer; Additional info: Ng tube placement/fever TECHNIQUE: Imaging protocol: Radiologic exam of the chest. Views: 1 view. COMPARISON: CR XR chest 1V portable [id number] 13/08/2023 12:06 FINDINGS: Tubes, catheters and devices: There is an NG tube with its tip and side-port in the stomach. Lungs: There is incomplete lung expansion and crowding of the vascular markings. No consolidation. Pleural spaces: No pleural effusion or pneumothorax. Heart/Mediastinum: Normal in size. Bones/joints: There has been a median sternotomy for coronary revascularization. XR/XR chest 1V portable [id number] IMPRESSION: 1. There is an NG tube with its tip and side-port in the stomach. 2. No acute findings.
[2024-03-10 19:07] LABS: ABG PCO2 28.1 mmHg (35-45); ABG PH Result 7.36 (7.35-7.45); Alveolar-Arterial Oxygen Gradi 4.3 mmHg (5-10); Arterial Blood Gas Hematocrit 25.9 % (37-47); Base Excess ABG -8.5 mmol/L (-2.0-2.0); Blood Gas Sample Site Radial, right; Blood Gas Sample Type Arterial; Carboxyhemoglobin 1.2 %THgb (0.4-20.1); HCO3 ABG 15.9 mmol/L (22-26); HGB O2 Sat 96.3 % (95-100); Ionized Calcium Level - ABG 1.1 mmol/L (1.1-1.4); Methemoglobin < 0.0 % (0.4-1.5); Oxygen Saturation ABG 97.3; PO2 ABG 80.7 mmHg (80.0-100.0); Potassium Level - ABG 3.8 mmol/L (3.5-5.0); Total Hemoglobin 8.5 g/dL (12-16)
[2024-03-10 19:08] LABS: Blood Gas Allen Test Pos; Blood Gas Operator Identificat AMH; Oxygen Device ROOM AIR; PO2 FiO2 Ratio Arterial Blood 384
--- NOTE | 2024-03-10 19:34 | PC.NURSE ---
Dr Noland contacted at 1334 for ammonia level order. Patient's was concerned that her ammonia levels were getting too high as she was very stuporous. At that time 40gm of lactulose given Patient had not had a bowel movement all day. Her abdomen continued to be very tight as well. At that time I also let Dr. Valerio (hospitalist) know as well. Later in the day (as shown on apr) she was given 40gm of lactulose again with no patient improvement or bowel movement. Nurse called Dr Noland at 1718 to inform him that patient had no shown any improvement and Dr. Noland stated he would be there to assess within 30 min. Brianne Hyman then called the floor and asked how the patient was doing and nurse reported the patient was not doing well. Respirations were at 10, heart rate at 85, oxygen level at 95 and blood pressure stable. Dr Noland and Brianne came to bedside and requested patient be moved to ICU and Dr Noland put in further orders. Morenita Patino RN, and Silvia RN, attempted to put an NG tube in patient but Silvia was unable to advance the NG tube and when she pulled it out of her nose, it was covered with blood. CSU nurses decided to then transport patient to ICU where report was given to Jojo Montenegro.
[2024-03-10] MEDS: cefTRIAXone 1,000 mg SDV 1000 MG IVP (20:28)
[2024-03-10 20:32] LABS: Glucose Point of Care 280 mg/dL (70-110)
[2024-03-10] MEDS: Fleet Enema 133 mL Enema PR (20:41)
[2024-03-10 21:03] LABS: Bilirubin Urine Negative (Negative); Blood Urine 3+ (Negative); Glucose Urine UA Negative (Normal); Ketones Urine Negative (Negative); Leukocyte Esterase Urine 2+ (Negative); Nitrate Urine Negative (Negative); Protein Urine 2+ (Negative); Specific Gravity, Urine 1.017 (1.005-1.030); Urine Appearance Turbid (CLEAR); Urine Color Yellow (Yellow); Urobilinogen Urine 0.2 mg/dL (Negative); pH Urine 5.5 (5-7)
[2024-03-10 21:08] LABS: Add Urine Microscopic? YES
[2024-03-10 21:18] LABS: Anion Gap 17.9 (5-19); Blood Urea Nitrogen 41 mg/dL (8-23); Calcium 7.5 mg/dL (8.5-10.5); Carbon Dioxide 13 mmol/L (22-29); Chloride 103 mmol/L (98-107); Creatinine Clr Calc Pharmacy 32.4722; Glomerular Filtration Rate 20.6 mL/min (90-130); Glucose 262 mg/dL (65-115); Phosphorus 2.9 mg/dL (2.5-4.5); Potassium 3.9 mmol/L (3.5-5.1); Sodium 130 mmol/L (136-145)
[2024-03-10 21:18] LABS: SARS Covid-2 Antigen negative (Negative)
[2024-03-10 21:20] LABS: Influenza A by IFA Negative (Negative); Influenza B by IFA Negative (Negative)
[2024-03-10] MEDS: lactulose oral liq 20 gm/30 mL UDC NG-TUBE (21:41)
[2024-03-10] MEDS: pantoprazole 40 mg SDV IVP (21:41)
--- NOTE | 2024-03-10 21:41 | PC.NURSE ---
Kyung Rinaldi at bedside; order received to change lantus from 50 units BID to 40 units subq BID and administer half of the humalog dose due now.
[2024-03-10 21:45] LABS: UA Slide Review UA Slide Review Perf
[2024-03-10 21:59] LABS: UA Manual Slide Review YES
[2024-03-10 22:02] LABS: Add Urine Culture? Yes; Bacteria Urine TRACE /hpf; Calcium Oxalate Crystals Urine 0-4 /hpf; WBC Urine >100 /hpf (0-5)
--- NOTE | 2024-03-10 22:22 | PC.NURSE ---
Order changes: Dr. Rinaldi visited patient at bedside and gave this nurse multiple verbal orders, see MAR and critical care message to nurse.
--- NOTE | 2024-03-10 22:24 | PC.NURSE ---
NG output: NG tube was inserted into left nare with approx. 50mL of blood output, Dr. Rinaldi made aware.
[2024-03-10 23:01] LABS: Glucose Point of Care 298 mg/dL (70-110)
[2024-03-10 23:13] LABS: Basophils # 0.1 10^3/uL (0.0-0.1); Basophils % 0.3 %; Eosinophils % 0.2 %; Hematocrit 26.6 % (36-47); Lymphocytes # 0.5 10^3/uL (0.8-4.8); Lymphocytes % 2.9 %; Mean Corpuscular HGB Conc 32.3 g/dL (30-55); Mean Corpuscular Hemoglobin 27.4 pg (27-33); Mean Corpuscular Volume 84.7 fl (85-98); Mean Platelet Volume 10.8 fL (7.4-10.4); Monocytes # 1.5 10^3/uL (0.2-0.9); Monocytes % 9.3 %; Neutrophils # 13.54 10^3/uL (1.8-7.7); Neutrophils % 86.6 %; Nucleated Red Blood Cells % 0.2 %; Platelet Count 131 10^3/cmm (157-399); Red Blood Count 3.14 10^6/uL (3.85-5.65); Red Cell Distribution Width 18.2 % (12.1-15.1); White Blood Count 15.63 10^3/uL (3.29-11.43)
[2024-03-10] MEDS: insulin lispro 100 unit/1 mL 8 UNIT SUBCUT (23:37)
[2024-03-10] MEDS: hyDRALAzine 20 mg/mL INJ 1 mL 10 MG IVP (23:39)
[2024-03-11] VITALS (83 sets, daily range): BP systolic 122–188; BP diastolic 48–125; PULSE 59–76; RESP 11–26; TEMP 36.5–37.3; O2SAT 93–97; BMI 39.6
[2024-03-11 03:33] LABS: Glucose Point of Care 283 mg/dL (70-110)
[2024-03-11] MEDS: insulin lispro 100 unit/1 mL 10 UNIT SUBCUT (04:14)
--- NOTE | 2024-03-11 04:25 | PC.NURSE ---
Blood sugar checks: Through the night, patient's blood sugar remained elevated in the high 200s, Dr. Rinaldi gave telephone orders for additional doses of Lispro (8 units at 0000 and 10 units at 0400).
[2024-03-11 04:38] LABS: Basophils % 0.3 %; Eosinophils % 0.1 %; Hematocrit 26.6 % (36-47); Lymphocytes # 0.5 10^3/uL (0.8-4.8); Lymphocytes % 3.5 %; Mean Corpuscular HGB Conc 32.3 g/dL (30-55); Mean Corpuscular Hemoglobin 27.7 pg (27-33); Mean Corpuscular Volume 85.8 fl (85-98); Monocytes # 1.4 10^3/uL (0.2-0.9); Neutrophils % 86.2 %; Nucleated Red Blood Cells % 0.1 %; Platelet Count 125 10^3/cmm (157-399); Red Cell Distribution Width 18.3 % (12.1-15.1); White Blood Count 15.64 10^3/uL (3.29-11.43)
[2024-03-11 04:56] LABS: Magnesium 3.4 mg/dL (1.7-2.3); Phosphorus 3.1 mg/dL (2.5-4.5)
[2024-03-11 04:59] LABS: Ammonia 144 umol/L (11-51)
[2024-03-11 05:00] LABS: Lactate (Lactic Acid level) 2.3 mmol/L (0.5-2.2)
[2024-03-11 05:01] LABS: Alanine Aminotransferase 45 U/L (0-33); Albumin Level 3.1 g/dL (3.5-5.2); Alkaline Phosphatase 240 U/L (35-105); Anion Gap 20.8 (5-19); Aspartate Amino Transferase 104 U/L (0-32); Blood Urea Nitrogen 49 mg/dL (8-23); Calcium 7.9 mg/dL (8.5-10.5); Carbon Dioxide 14 mmol/L (22-29); Chloride 102 mmol/L (98-107); Creatinine Clr Calc Pharmacy 26.1123; Glomerular Filtration Rate 16.6 mL/min (90-130); Glucose 266 mg/dL (65-115); Osmolality Calculated 298 mOsm/kg (285-295); Potassium 3.8 mmol/L (3.5-5.1); Sodium 133 mmol/L (136-145); Total Bilirubin 1.2 mg/dL (0.15-1.2); Total Protein 6.1 g/dL (6.6-8.7)
[2024-03-11] MEDS: sucralfate 1 gm/10 mL Oral Liq UDC PO (06:31)
[2024-03-11 07:46] LABS: Glucose Point of Care 234 mg/dL (70-110)
--- NOTE | 2024-03-11 08:34 | PC.NURSE ---
patient very lethargic occasionally groans to stimui, expressed wish to transfer to other facility. Dr. Simeon came to bedside gave vo to increase lactulose per MAR and called Hospitalist, plan to look for transfer to other facility, Dr Valerio came to bedside ordered lactulose enema agreed with plan to transfer out
[2024-03-11 08:38] LABS: ABG PCO2 23.9 mmHg (35-45); Alveolar-Arterial Oxygen Gradi 8.9 mmHg (5-10); Arterial Blood Gas Hematocrit 27.1 % (37-47); Base Excess ABG -8.8 mmol/L (-2.0-2.0); Blood Gas Allen Test Pos; Blood Gas Operator Identificat CAK; Blood Gas Sample Site Radial, left; Blood Gas Sample Type Arterial; Carboxyhemoglobin 1.5 %THgb (0.4-20.1); HCO3 ABG 14.8 mmol/L (22-26); HGB O2 Sat 84.1 % (95-100); Ionized Calcium Level - ABG 1.1 mmol/L (1.1-1.4); Methemoglobin 1.3 % (0.4-1.5); Oxygen Device ROOM AIR; Oxygen Saturation ABG 86.5; PO2 ABG 50.2 mmHg (80.0-100.0); PO2 FiO2 Ratio Arterial Blood 239; Potassium Level - ABG 3.7 mmol/L (3.5-5.0); Total Hemoglobin 8.8 g/dL (12-16)
--- NOTE | 2024-03-11 08:41 | PC.NURSE ---
Dr. Simeon gave order to hold plavix this morning
[2024-03-11] MEDS: amlodipine 10 mg Tablet NG-TUBE (08:46)
[2024-03-11] MEDS: propranolol 20 mg Tablet NG-TUBE ×2 (08:46→17:33)
[2024-03-11] MEDS: insulin lispro 100 unit/1 mL SUBCUT ×2 (08:46→11:54)
[2024-03-11] MEDS: RIFAXIMIN 550 MG 1 EACH NG-TUBE ×2 (08:47→17:33)
[2024-03-11] MEDS: lactulose oral liq 20 gm/30 mL UDC 40 GM NG-TUBE ×3 (08:47→20:38)
[2024-03-11] MEDS: pantoprazole 40 mg SDV IVP ×2 (08:48→17:33)
--- NOTE | 2024-03-11 09:06 | P.PN_ITS ---
Subjective 2 Subjective: Patient has worsening mental status overnight. She was transferred to the ICU. NGT inserted for medications . She received magnesium citrate but has had only small bowel movement. She had some bloody Secretions from the NGT She was seen at her bedside, lethargic, review of systems limited. Vitals/I&O/Wt Last Vital Signs Temp 99.0 F 03/11/24 04:15 Pulse 68 03/11/24 07:35 Resp 16 03/11/24 04:15 BP 143/60 03/11/24 04:15 Pulse Ox 94 03/11/24 07:35 O2 Del Method Room Air 03/11/24 07:35 03/10/24 03/11/24 03/11/24 22:59 06:59 14:59 Intake Total 350 / 820 15 / 835 Output Total 50 / 50 1000 / 1050 Balance 300 / 770 -985 / -215 Weight last 48 hrs Weight 111.5 kg Weight 115.5 kg Weight 117.344 kg Physical Exam 2 Narrative: Minimally responsive, acutely ill-appearing HENMT: COMMON NORMALS: normocephalic (NGT in place), atraumatic, external ears normal, Normal external nose present, moist oral mucous membranes and oropharynx normal HEAD & SCALP: normocephalic (NGT in place) and atraumatic NOSE: N ormal external nose present EXTERNAL EAR: Yes external ears normal Eye: COMMON NORMALS: Equal, round and reactive pupils present, EOMs intact bilaterally, conjunctivae normal and no scleral icterus CONJUNCTIVA: Yes conjunctivae normal PUPIL: Yes Equal, round and reactive pupils present Neck/C-Spine: COMMON NORMALS: full ROM, no lymphadenopathy and no JVD Chest: COMMONS NORMALS: normal inspection of the chest Resp: COMMON NORMALS: normal respiratory effort and clear to auscultation bilaterally AUSCULTATION: clear to auscultation bilaterally OTHER: No wheezes or crcakles Cardio: COMMON NORMALS: no JVD, regular rate, regular rhythm, S1 normal heart sound present and S2 normal heart sound present RATE: regular rate RHYTHM: regular rhythm HEART SOUNDS: S1 normal heart sound present and S2 normal heart sound present GI: OTHER: Somewhat distended, tenderness not appreciated, bowel sounds present Extremity: NARRATIVE EXTREMITY EXAM: Pedal edema++ Neuro: OTHER: Minimally responsive, no gross focal deficits Urinary Catheter Management: Rodas: Cath Placed During This Visit: yes Reason for Continuing Indwelling Catheter: Accurate Measurement of Urinary Output in Critically Ill Patients Urinary Catheter Date of Insertion: 03/04/24 Data 03/11/24 04:15 03/11/24 04:15 Micro: Microbiology 03/10/24 20:33 Blood Culture - Preliminary Blood SPECIMEN COLLECTED 03/10/24 20:28 Blood Culture - Preliminary Blood SPECIMEN COLLECTED A&P Assessment and plan (1) Encephalopathy, hepatic: - Patient has worsening mental status with elevated ammonia levels -She is currently minimally responsive -Continue lactulose via NGT , will also give enema -Continue rifaximin -Check ABG -Patient is high risk for intubation if she cannot protect the airways -Plan is to transfer patient to tertiary hospital for further GI evaluation -Abdomen is somewhat distended, plan to get CT of the abdomen and pelvis pending transfer -She is on antibiotics-ceftriaxone (2) GI bleeding: -Hemoglobin today -8.60 -Status post PRBC transfusion -She had some bleeding from the NGT , but hemoglobin is stable today - She is S/p EGD and colonoscopy -with finding of nonbleeding small esophageal varices, unremarkable colonoscopy. Without active bleed. Duodenal biopsy was obtained. -Continue Protonix -Additionally if intolerant of anticoagulant discussed with her consideration could be given to left atrial appendage closure device. -Referral for follow-up with surgery for capsule endoscopy. (3) Acute lower limb ischemia: Status post stenting per Dr. Simeon Plavix currently resumed (4) Atrial fibrillation: - Xarelto currently held. Now in normal sinus rhythm Qualifiers: Atrial fibrillation type: paroxysmal Qualified Code(s): I48.0 - Paroxysmal atrial fibrillation (5) Stage 3b chronic kidney disease (CKD): #Robert superimposed on chronic kidney disease stage III -creatinine continues to worsen . -Unclear etiology, hepatorenal syndrome is possible ., Clinically , she seems somewhat volume overloaded. She received IV Lasix yesterday after blood transfusion. will check BNP. -Give albumin -Patient has metabolic acidosis, she may need bicarb infusion -Nephrology consult (6) Cirrhosis: This has been reported as due to medications? She is working with liver specialist to get down to a transplant list. Qualifiers: Hepatic cirrhosis type: other cirrhosis Qualified Code(s): K74.69 - Other cirrhosis of liver (7) Thrombocytopenia: (8) Diabetes mellitus: Continue glucose checks, titrate insulin as appropriate Qualifiers: Diabetes mellitus fpc insulin use: with fpc use Diabetes mellitus type: type 2 (9) Hypertension: - Hold antihypertensives for now (10) Suspected UTI: - Patient having low-grade fevers overnight -UA shows pyuria, bacteriuria, yeast. Also has squamous epithelial cells -Repeat [id number] -Patient is on ceftriaxone -Blood cultures ordered -Will also start empiric fluconazole, patient's prior urine cultures grew Mariaelena Attestations 2 Medical Necessity Statement*: Continue inpatient admission for management of encephalopathy , acute kidney injury , liver cirrhosis Coding Level of Care Code Acute Code for [facility] Diagnoses Encephalopathy, hepatic K76.82 GI bleeding K92.2 Acute lower limb ischemia I99.8 Paroxysmal atrial fibrillation I48.0 Atrial fibrillation type: paroxysmal Stage 3b chronic kidney disease (CKD) N18.32 Other cirrhosis of liver K74.69 Hepatic cirrhosis type: other cirrhosis Thrombocytopenia D69.6 Diabetes mellitus E11.9 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
[2024-03-11] MEDS: albumin 12.5 GM/50 ML VIAL IV (09:20)
[2024-03-11 09:23] LABS: Ammonia 103 umol/L (11-51)
--- NOTE | 2024-03-11 09:34 | P.PN_ITS ---
Subjective 2 Subjective: Patient remains somnolent and somewhat comatose with possible hepatic encephalopathy Overnight patient had very small amount of stool despite of mag citrate and enema along with lactulose EGD/colonoscopy revealed grade 1 esophageal varices mild gastritis otherwise no significant etiology for GI bleed She is status post 2 unit of packed red blood cell no hemoglobin is 8.6 Vitals/I&O/Wt Last Vital Signs Temp 99.0 F 03/11/24 04:15 Pulse 68 03/11/24 07:35 Resp 16 03/11/24 04:15 BP 143/60 03/11/24 04:15 Pulse Ox 94 03/11/24 07:35 O2 Del Method Room Air 03/11/24 07:35 03/10/24 03/11/24 03/11/24 22:59 06:59 14:59 Intake Total 350 / 820 15 / 835 Output Total 50 / 50 1000 / 1050 Balance 300 / 770 -985 / -215 Weight last 48 hrs Weight 245 lb 13.047 oz Weight 254 lb 10.142 oz Weight 258 lb 11.2 oz Physical Exam 2 Const: COMMON NORMALS: alert OTHER: Patient remains comatose Heart regular S1-S2 Lungs decreased breath sound Abdomen distended tympanic but not very firm Lower extremity left lower leg anterior posterior pulse palpable l Resp: COMMON NORMALS: clear to auscultation bilaterally AUSCULTATION: clear to auscultation bilaterally Neuro: SENSORIUM/ORIENTATION: Yes alert Urinary Catheter Management: Rodas: Cath Placed During This Visit: yes Reason for Continuing Indwelling Catheter: Accurate Measurement of Urinary Output in Critically Ill Patients Urinary Catheter Date of Insertion: 03/04/24 Data 03/11/24 04:15 03/11/24 04:15 Micro: Microbiology 03/10/24 20:33 Blood Culture - Preliminary Blood SPECIMEN COLLECTED 03/10/24 20:28 Blood Culture - Preliminary Blood SPECIMEN COLLECTED A&P Assessment and plan (1) Encephalopathy, hepatic: Hepatic cephalopathy with worsening of ammonia, mag citrate was given along with 60 mg of lactulose 3 times per day, Fleet enema still patient has not had bowel movement (2) Acute lower limb ischemia: Remained stable, left leg has good blood flow, after colonoscopy endoscopy surgery okayed to continue Plavix. No more GI bleed hemoglobin is 8.6, aspirin and Xarelto was discontinued (3) Hypertension: Elevated, use hydralazine as needed basis (4) Atrial fibrillation: She has been in sinus rhythm so far. Hold Xarelto. Qualifiers: Atrial fibrillation type: paroxysmal Qualified Code(s): I48.0 - Paroxysmal atrial fibrillation (5) CAD (coronary artery disease): No symptoms of coronary ischemia. Qualifiers: Coronary Disease-Associated Artery/Lesion type: [place] artery [place] vs. transplanted heart: [place] heart Associated angina: without angina Qualified Code(s): I25.10 - Atherosclerotic heart disease of [place] coronary artery without angina pectoris (6) Acute blood loss anemia (ABLA): Status post blood transfusion holding hemoglobin (7) Cirrhosis: Patient carries diagnosis of cirrhosis treatment of encephalopathy as above Qualifiers: Hepatic cirrhosis type: other cirrhosis Qualified Code(s): K74.69 - Other cirrhosis of liver (8) Suspected UTI: Continue antibiotics (9) CKD (chronic kidney disease): Acute on chronic renal failure, status post GI bleed creatinine has worsened. Patient ejection fraction normal will start IV fluid normal saline 100 mL/h Plan We do not have gastroenterology/hepatology specialty, at this point since we have tried to move her bowel with lactulose enema mag citrate and has not had better luck therefore we will request transfer the patient to the facility under GI/hepatology higher level of care Attestations 2 Medical Necessity Statement*: Patient needs continuation hospitalization for above defined care. Will reach out to other hospital for possible transfer Coding Level of Care Code Acute Code for [facility] Fwd Diagnoses Encephalopathy, hepatic K76.82 Acute lower limb ischemia I99.8 Hypertension I10 Paroxysmal atrial fibrillation I48.0 Atrial fibrillation type: paroxysmal Coronary artery disease involving [place] coronary artery of [place] heart without angina pectoris I25.10 Coronary Disease-Associated Artery/Lesion type: [place] artery [place] vs. transplanted heart: [place] heart Associated angina: without angina Acute blood loss anemia (ABLA) D62 Other cirrhosis of liver K74.69 Hepatic cirrhosis type: other cirrhosis Suspected UTI R39.89 CKD (chronic kidney disease) N18.9
[2024-03-11] MEDS: insulin glargine 100 units/1 mL 40 UNIT SUBCUT ×2 (09:52→17:33)
[2024-03-11] MEDS: lactulose oral liq 20 gm/30 mL UDC 200 GM PR (09:52)
[2024-03-11] MEDS: fluconazole premix 200 MG/100 ML PREMIX 50 MG IV (10:21)
[2024-03-11] MEDS: sodium chloride 0.9% 1,000 ML 100 ML IV ×2 (10:23→23:56)
--- NOTE | 2024-03-11 10:25 | CT_ITS ---
WS: [id number] CT HEAD TECHNIQUE: Noncontrast CT of the head obtained from the skullbase to the vertex. CLINICAL INFORMATION: Altered mental status COMPARISON: CT 08/04/2023 DLP: 2892.[address] scans at [facility] use at least one of these dose optimization techniques: automated e xposure control; mA and/or kV adjustment per patient size (includes targeted exams where dose is matc hed to clinical indication); or iterative reconstruction. FINDINGS: No evidence of intracranial hemorrhage or mass effect. Ventricular system and basal cisterns are angel nt. Mild small vessel changes with mild parenchymal volume loss. No extra-axial fluid collections. No evidence of mass or mass effect. Normal morrison-white differentiation. Paranasal sinuses and mastoid air cells are well aerated. .Normal visualized soft tissues. CT/CT head wo con* [id number] IMPRESSION: 1. No evidence of intracranial hemorrhage or mass effect. 2. No acute intracranial findings.
--- NOTE | 2024-03-11 10:44 | CT_ITS ---
WS: [id number] CT CHEST, ABDOMEN, AND PELVIS TECHNIQUE: Noncontrast CT of the chest, abdomen, and pelvis with coronal and sagittal reformatted tanvi ges. CLINICAL INFORMATION: fever, ams, abdominal distension COMPARISON: CT 01/04/2023 DLP: 2892.[address] scans at [facility] use at least one of these dose optimization techniques: automated e xposure control; mA and/or kV adjustment per patient size (includes targeted exams where dose is matc hed to clinical indication); or iterative reconstruction. CT CHEST: Lungs are well aerated. Images degraded by respiratory motion. A few calcified granulomas. Hazy atele ctasis in the lung bases. No focal pneumonia or pleural fluid. Mild chronic emphysematous changes. St ernotomy. CABG. Cardiomegaly. Cardiac pacer. Normal caliber thoracic aorta. No mediastinal or hilar l ymphadenopathy. Enteric tube with tip in the stomach. No axillary lymphadenopathy. Mild thoracic kyph osis. CT ABDOMEN AND PELVIS: Cirrhotic liver with evidence of portal venous hypertension. Splenomegaly. Upper abdominal varices wi th recanalized umbilical vein. Small amount perihepatic ascites. Cholelithiasis. Small fat-containing umbilical hernia. Rodas catheter. Splenic artery calcification. Noncontrast pancreas appears normal. Adrenal glands appear normal. No hydronephrosis in either kidney. Vascular calcification. Normal caliber abdominal aorta. Mild diffuse body wall anasarca. Normal sigmo id colon. No evidence of small or large bowel obstruction. Small amount of ascites in the paracolic g utters. Reactive lymph nodes in the upper abdomen and central mesentery. Chronic spondylolysis L5-S1. Minimal anterolisthesis L5 on S1. Disc bulging L4-5. Prior hysterectomy. Fluid along the RIGHT greater than LEFT adnexa. Suggestion of a RIGHT adnexal low -attenuation cystic lesion measuring 5.1 x 3.5 cm. This could be further evaluated with ultrasound. CT/[place] [id number] IMPRESSION: 1. Cirrhotic configuration to the liver with evidence of portal venous hyperte nsion. Upper abdominal varices. 2. Cholelithiasis. 3. Small amount of perihepatic ascites with diffuse body wall anasarca. 4. Rodas catheter. 5. Chronic spondylolysis L5-S1 with minimal anterolisthesis. 6. Suggestion of RIGHT ovarian low-attenuation cystic lesion measuring 5.1 x 3 .5 cm. This can be followed up with ultrasound. 7. Prior hysterectomy. 8. No acute findings in the chest.
[2024-03-11 11:51] LABS: Glucose Point of Care 171 mg/dL (70-110)
[2024-03-11] MEDS: sodium bicarbonate 650 mg Tablet NG-TUBE ×3 (11:54→20:38)
--- NOTE | 2024-03-11 12:02 | PC.SOCIAL ---
IMM Updated Updated pt's on IMM. No questions voiced. Provided pt a copy. Initialed, dated, & timed copy in chart.
[2024-03-11 14:33] LABS: NT Pro B Type Natriuretic Pept 2953 pg/mL (0-125)
--- NOTE | 2024-03-11 16:59 | P.CONIM_ITS ---
Providers/Reason For Consult 2 Consulting Physician/Specialty*: kommana/Nephrology Reason for Consult*: DAMARIS Attending Physician: Humphrey Noland MD Primary Care Provider: Jovan Singer MD History of Present Illness History of Present Illness Jacquelin Whiteside is a 58 year old female patient is a 58-year-old female with past medical history of hypertension, CABG status post pacemaker, A-fib, liver cirrhosis with CASTANON, portal hypertension presented due to acute left leg pain and was concern for acute limb ischemia, and patient underwent thrombectomy and balloon angioplasty and stent placement. Patient later was found to have low hemoglobin and underwent endoscopy that showed grade 1 esophageal varices. Patient has chronic kidney disease with a baseline creatinine of 1.5-2 range and creatinine currently at 2.9. Patient also has hepatic encephalopathy and still confused and lethargic. Review of Systems 2 Narrative: cannot obtain Medications/Allergies Home Medications Medication Instructions Recorded Confirmed Last Taken Type lancing device with lancets kit #1 ea 03/14/20 03/04/24 Unknown Rx blood-glucose meter #1 ea 11/05/20 03/04/24 Unknown Rx blood sugar diagnostic (Blood #100 ea 07/23/21 03/04/24 Unknown Rx Glucose Test strips) flash glucose scanning reader #1 ea 08/04/22 03/04/24 Unknown Rx (FreeStyle Mauricio 14 Day Belva) lancets 33 gauge #100 ea 06/04/23 03/04/24 Unknown Rx spironolactone 50 mg tablet 50 mg PO DAILY #90 tabs 06/15/23 03/04/24 03/04/24 Rx carvedilol 3.125 mg tablet 3.125 mg PO BID 08/04/23 03/04/24 03/04/24 History furosemide 20 mg tablet (Lasix) 20 mg PO DAILY PRN Edema 08/04/23 03/04/24 12/22/23 History irbesartan 75 mg tablet 75 mg PO DAILY 08/04/23 03/04/24 03/04/24 History naloxone 4 mg/actuation nasal spray See Rx Instructions .Route .COMPLEX 08/04/23 03/04/24 Unknown History insulin glargine 100 unit/mL (3 50 unit (0.5 mL) SUBCUT BID #30 mL 11/16/23 03/04/24 03/04/24 Rx mL) subcutaneous pen (Lantus Solostar U-100 Insulin) ondansetron 8 mg disintegrating 8 mg PO Q8H PRN nausea and 12/17/23 03/04/24 12/22/23 Rx tablet vomiting #10 tabs nitroglycerin 0.4 mg sublingual See Rx Instructions .Route 12/22/23 03/04/24 Unknown History tablet .COMPLEX PRN Chest Pain rifaximin 550 mg tablet (Xifaxan) 550 mg PO BID 12/22/23 03/04/24 03/04/24 History insulin lispro 100 unit/mL See Rx Instructions .Route 12/24/23 03/04/24 03/04/24 Rx subcutaneous pen (Humalog KwikPen .COMPLEX #45 mL (U-100) Insulin) flash glucose sensor (FreeStyle #1 kit 01/17/24 03/04/24 Unknown Rx Mauricio 14 Day Sensor kit) lactulose 10 gram/15 mL oral See Rx Instructions .Route 02/15/24 03/04/24 03/03/24 Rx solution (Constulose) .COMPLEX #946 mL pantoprazole 40 mg tablet,delayed 40 mg PO DAILY #90 tabs 02/15/24 03/04/24 03/04/24 Rx release pen needle, diabetic 31 gauge x #100 ea 02/25/24 03/04/24 Unknown Rx 5/16 (BD Ultra-Fine Short Pen Needle) morphine 30 mg tablet,extended 30 mg PO Q12H PRN Pain 30 days #60 02/26/24 03/04/24 03/04/24 Rx release tabs empagliflozin 10 mg tablet 10 mg PO QAM 03/04/24 03/04/24 03/04/24 History (Jardiance) Allergies Allergy/AdvReac Type Severity Reaction Status Date / Time insulin degludec Allergy ALGY-Difficulty Verified 12/31/23 15:15 [From Tresiba FlexTouch Breathing U-100] levofloxacin Allergy SWELLING Verified 12/31/23 15:15 promethazine Allergy confusion Verified 12/31/23 15:15 duloxetine AdvReac ADR-Swelling Verified 12/31/23 15:15 of the Eye Current Medications Generic Name Dose Route Start Last Admin Trade Name Freq PRN Reason Stop Dose Admin Amlodipine Besylate 10 mg 03/11/24 09:00 03/11/24 08:46 Amlodipine 10 Mg Tablet NG-TUBE 10 mg DAILY NIKOLAS Administration Ceftriaxone Sodium 1,000 mg 03/10/24 19:00 03/10/24 20:28 Ceftriaxone 1,000 Mg Sdv IVP 1,000 mg Q24H NIKOLAS Administration Protocol Clopidogrel Bisulfate 75 mg 03/11/24 09:00 03/11/24 08:47 Clopidogrel 75 Mg Tablet NG-TUBE Not Given DAILY NIKOALS Furosemide 20 mg 03/10/24 09:01 03/10/24 12:01 Furosemide 10 Mg/Ml Sdv 2ml IVP 20 mg ONCE PRN Administration SHORTNESS OF BREATH Hydralazine HCl 10 mg 03/10/24 20:01 03/10/24 23:39 Hydralazine 20 Mg/Ml Inj 1 Ml IVP 10 mg Q4H PRN Administration HYPERTENSION Sodium Chloride 1,000 mls @ 100 mls/hr 03/11/24 10:00 03/11/24 10:23 Sodium Chloride 0.9% IV 100 mls/hr .Q10H NIKOLAS Administration Insulin Glargine 40 unit 03/11/24 09:00 03/11/24 09:52 Insulin Glargine 100 Units/1 Ml SUBCUT 40 unit BID NIKOLAS Administration Insulin Human Lispro 0 unit 03/06/24 12:00 03/11/24 11:54 Insulin Lispro 100 Unit/1 Ml SUBCUT 6 unit WM&BEDTIME NIKOLAS Administration Protocol Lactulose 40 gm 03/11/24 09:00 03/11/24 15:01 Lactulose Oral Liq 20 Gm/30 Ml Udc NG-TUBE 40 gm TID NIKOLAS Administration Morphine Sulfate 2 mg 03/04/24 16:04 03/07/24 09:18 Morphine 4 Mg/Ml Sdv 1 Ml IVP 2 mg Q4H PRN Administration SEVERE PAIN Non-Formulary 1 each 03/11/24 09:00 03/11/24 08:47 Medication(Rifaximin NG-TUBE 1 each 550 Mg) BID NIKOLAS Administration Ondansetron HCl 4 mg 03/04/24 16:04 03/08/24 14:25 Ondansetron 2 Mg/Ml Sdv 2 Ml IVP 4 mg Q8H PRN Administration vomiting, or N/V if npo Pantoprazole Sodium 40 mg 03/10/24 21:12 03/11/24 08:48 Pantoprazole 40 Mg Sdv IVP 40 mg BID NIKOLAS Administration Propranolol HCl 20 mg 03/11/24 09:00 03/11/24 08:46 Propranolol 20 Mg Tablet NG-TUBE 20 mg BID NIKOLAS Administration Sodium Bicarbonate 650 mg 03/11/24 10:30 03/11/24 15:02 Sodium Bicarbonate 650 Mg Tablet NG-TUBE 650 mg TID NIKOLAS Administration PFSH Acute 2 PFSH: Medical History (Updated 03/11/24 @ 09:45 by Humphrey Noland MD) CKD (chronic kidney disease) Encephalopathy, hepatic Hypertension Stage 3b chronic kidney disease (CKD) Cirrhosis Attributed to diabetes and chronic pain medication use her patient Atrial fibrillation History of atrial fibrillation postoperatively. CAD (coronary artery disease) Diabetes mellitus Pressure injury of sacral region, stage 2 Chronic narcotic use extended release morphine for chronic pain Lower extremity edema Neuropathy Esophageal varices CASTANON (nonalcoholic steatohepatitis) Labial abscess 2015, 02/2023 s/p I&D Diabetic neuropathy Thrombocytopenia (HFpEF) heart failure with preserved eje ction fraction Hepatomegaly Splenomegaly Carpal tunnel syndrome Migraine Sporadic pituitary adenoma History of LA (myocardial infarction) (~2006) Essential hypertension Pacemaker (~2012) due to symptomatic bradycardia Hyperlipidemia Fe deficiency anemia Surgical History History of esophageal surgery History of permanent cardiac pacemaker placement History of esophagogastroduodenoscopy (EGD) 4-5 years Hx of colonoscopy 10 plus years Vulvar abscess (~05/01/15) I&D of left labia majora abscess; performed by Kiko. S/P arterial stent x 3; approximately in 2012, 2013 - [facility] S/P brain surgery (~2005) Removal of brain tumor- benign; in the pituitary gland S/P CABG x 2 in 2006 S/P section performed in 1990, 1992 S/P hysterectomy (~1992) converted from C/Section to NAMAN,bilateral salpingectomy, probable ovaries remain. Most likely performed by Dr. Roper. Family History Brother Stroke Diabetes Mother , 72 Diabetes Heart disease Hypertension Stroke Father , 68 Diabetes Heart disease Hypertension Stroke Grandmother Diabetes Maternal Other CAD (coronary artery disease) Hyperlipidemia Lung disease Denies family history of Colon cancer Ovarian cancer Clotting disorder Dementia Hypercholesteremia Psychiatric illness Chronic kidney disease (CKD) Breast cancer Anesthesia complication Bleeding disorder Cancer Uterine cancer Thyroid disease Social History Smoking and tobacco/nicotine status: former use of tobacco/nicotine Alcohol intake: never Substance/Drug Use: never Adopted: No service: No Current gender identity: Female Vitals/I&O/Wt Last Vital Signs Temp 99.0 F 03/11/24 04:15 Pulse 60 03/11/24 16:15 Resp 16 03/11/24 16:15 BP 155/76 03/11/24 16:15 Pulse Ox 94 03/11/24 16:15 O2 Del Method Room Air 03/11/24 07:35 03/11/24 03/11/24 03/11/24 06:59 14:59 22:59 Intake Total / 835 Output Total 1000 / 1050 Balance -985 / -215 Weight last 48 hrs Weight 111.5 kg Weight 115.5 kg Weight 117.344 kg Physical Exam 2 Narrative: Patient lethargic, no distress Urinary Catheter Management: Rodas: Cath Placed During This Visit: yes Reason for Continuing Indwelling Catheter: Accurate Measurement of Urinary Output in Critically Ill Patients Urinary Catheter Date of Insertion: 03/04/24 Data 03/11/24 04:15 03/11/24 04:15 Micro: Microbiology 03/10/24 20:33 Blood Culture - Preliminary Blood SPECIMEN COLLECTED 03/10/24 20:28 Blood Culture - Preliminary Blood SPECIMEN COLLECTED A&P Assessment and plan (1) Stage 3b chronic kidney disease (CKD): 1. 1 acute kidney injury acute on chronic kidney disease: Baseline creatinine in the 1.5-2 ra-nge, now has DAMARIS with a creatinine of 2.9 likely prerenal in the setting of severe anemia, poor p.o. intake. also received IV contrast on presentation - will add IV albumin, check urine electrolytes ,urine eosinophills , UA with + protein , + blood and + WBC - Continue to monitor renal function closely - No indication for dialysis 2. Metabolic acidosis : add bicitra 3. Liver cirrhosis , with portal HTN 4. Limb ischemia - s/p thrombectomy and stent Consult Attestations 2 Medical Necessity Statement: per marie Coding Level of Care Code Acute Code for [facility] Fwd Diagnoses Stage 3b chronic kidney disease (CKD) N18.32
[2024-03-11 17:05] LABS: Glucose Point of Care 100 mg/dL (70-110)
[2024-03-11] MEDS: sucralfate 1 gm/10 mL Oral Liq UDC NG-TUBE (17:32)
[2024-03-11] MEDS: cefTRIAXone 1,000 mg SDV 1000 MG IVP ×2 (17:44→19:01)
[2024-03-11 17:58] LABS: Blood Gas Sample Type Arterial; Carboxyhemoglobin 1.3 %THgb (0.4-20.1); Ionized Calcium Level - ABG 1.1 mmol/L (1.1-1.4)
[2024-03-11 18:27] LABS: ABG PCO2 24.7 mmHg (35-45); ABG PH Result 7.41 (7.35-7.45); Alveolar-Arterial Oxygen Gradi 4.4 mmHg (5-10); Arterial Blood Gas Hematocrit 27.7 % (37-47); Base Excess ABG -7.8 mmol/L (-2.0-2.0); Blood Gas Operator Identificat MONRO; Blood Gas Sample Site Radial, left; HCO3 ABG 15.7 mmol/L (22-26); HGB O2 Sat 94.6 % (95-100); Methemoglobin 1.3 % (0.4-1.5); Oxygen Device ROOM AIR; Oxygen Saturation ABG 97.1; PO2 ABG 81.7 mmHg (80.0-100.0); PO2 FiO2 Ratio Arterial Blood 389; Potassium Level - ABG 3.3 mmol/L (3.5-5.0)
[2024-03-11 20:32] LABS: Glucose Point of Care 99 mg/dL (70-110)
[2024-03-11 20:49] LABS: Ammonia 97 umol/L (11-51)
[2024-03-12] VITALS (29 sets, daily range): BP systolic 124–179; BP diastolic 58–91; PULSE 60–66; RESP 7–23; TEMP 36.4; O2SAT 93–97
[2024-03-12 04:11] LABS: Glucose Point of Care 81 mg/dL (70-110)
[2024-03-12] MEDS: hyDRALAzine 20 mg/mL INJ 1 mL 10 MG IVP (04:26)
--- NOTE | 2024-03-12 05:22 | PC.NURSE ---
Patient has woke up more throughout the night, she is now awake and alert, with mild confusion. She has had multiple liquid bowel movements. She is complaining of tightness and pressure along her upper abdomen. She was educated on her condition and why she was transferred back to ICU.
[2024-03-12] MEDS: sucralfate 1 gm/10 mL Oral Liq UDC NG-TUBE ×2 (06:06→17:54)
[2024-03-12] MEDS: morphine 4 mg/mL SDV 1 mL 2 MG IVP ×2 (06:44→21:52)
[2024-03-12 07:34] LABS: Basophils % 0.2 %; Eosinophils # 0.1 10^3/uL (0.0-0.8); Eosinophils % 0.4 %; Hematocrit 28.3 % (36-47); Lymphocytes # 0.7 10^3/uL (0.8-4.8); Lymphocytes % 3.7 %; Mean Corpuscular HGB Conc 31.8 g/dL (30-55); Mean Corpuscular Hemoglobin 27.3 pg (27-33); Mean Corpuscular Volume 85.8 fl (85-98); Mean Platelet Volume 10.5 fL (7.4-10.4); Monocytes # 1.5 10^3/uL (0.2-0.9); Monocytes % 8.5 %; Neutrophils # 15.27 10^3/uL (1.8-7.7); Neutrophils % 86.6 %; Nucleated Red Blood Cells % 0 %; Platelet Count 139 10^3/cmm (157-399); Red Cell Distribution Width 18.5 % (12.1-15.1); White Blood Count 17.62 10^3/uL (3.29-11.43)
[2024-03-12 07:47] LABS: Glucose Point of Care 97 mg/dL (70-110)
[2024-03-12 07:49] LABS: Ammonia 52 umol/L (11-51)
[2024-03-12 07:51] LABS: Alanine Aminotransferase 39 U/L (0-33); Alkaline Phosphatase 209 U/L (35-105); Anion Gap 18.9 (5-19); Aspartate Amino Transferase 97 U/L (0-32); Blood Urea Nitrogen 47 mg/dL (8-23); Carbon Dioxide 14 mmol/L (22-29); Chloride 110 mmol/L (98-107); Creatinine Clr Calc Pharmacy 34.2948; Globulin 3.7 g/dL (1.3-4.6); Glomerular Filtration Rate 22.8 mL/min (90-130); Glucose 96 mg/dL (65-115); Osmolality Calculated 302 mOsm/kg (285-295); Sodium 140 mmol/L (136-145); Total Bilirubin 1.3 mg/dL (0.15-1.2); Total Protein 6.7 g/dL (6.6-8.7)
[2024-03-12 08:00] LABS: Potassium 2.9 mmol/L (3.5-5.1)
[2024-03-12] MEDS: pantoprazole 40 mg SDV IVP ×2 (08:41→17:54)
[2024-03-12] MEDS: propranolol 20 mg Tablet NG-TUBE ×2 (08:42→17:55)
[2024-03-12] MEDS: amlodipine 10 mg Tablet NG-TUBE (08:42)
[2024-03-12] MEDS: clopidogrel 75 mg Tablet NG-TUBE (08:42)
[2024-03-12] MEDS: potassium chloride ER 20 mEq Tablet 40 MEQ PO (08:42)
[2024-03-12] MEDS: sodium bicarbonate 650 mg Tablet NG-TUBE ×3 (08:42→21:11)
[2024-03-12] MEDS: lactulose oral liq 20 gm/30 mL UDC 40 GM NG-TUBE ×3 (08:43→21:10)
[2024-03-12] MEDS: sodium chloride 0.9% 1,000 ML 100 ML IV (09:02)
[2024-03-12] MEDS: FUROsemide 10 mg/mL SDV 4mL 40 MG IVP ×2 (11:24→14:33)
[2024-03-12] MEDS: albumin 12.5 GM/250 ML VIAL IV (11:50)
[2024-03-12 12:50] LABS: Glucose Point of Care 189 mg/dL (70-110)
--- NOTE | 2024-03-12 12:52 | P.PN_ITS ---
Subjective 2 Subjective: Patient has improvement in her mental status. She is now awake, AAO x 3 . She reports feeling very tired with some shortness of breath. She is having bowel movements. Vitals/I&O/Wt Last Vital Signs Temp 97.5 F L 03/12/24 04:00 Pulse 66 03/12/24 05:52 Resp 20 H 03/12/24 06:44 BP 173/78 03/12/24 04:00 Pulse Ox 96 03/12/24 06:44 O2 Del Method Room Air 03/11/24 07:35 03/11/24 03/12/24 03/12/24 22:59 06:59 14:59 Intake Total 1150 / 1150 910 / 910 Output Total 450 / 450 750 / 1200 Balance 700 / 700 -750 / -50 910 / 910 Weight last 48 hrs Weight 110.767 kg Weight 111.13 kg Weight 111.5 kg Weight 115.5 kg Physical Exam 2 Narrative: Awake, about lethargy, acutely ill-appearing Const: COMMON NORMALS: no acute distress, patient oriented x3 and alert HENMT: COMMON NORMALS: normocephalic (NGT in place), atraumatic, external ears normal, Normal external nose present, moist oral mucous membranes and oropharynx normal HEAD & SCALP: normocephalic (NGT in place) and atraumatic NOSE: N ormal external nose present EXTERNAL EAR: Yes external ears normal Eye: COMMON NORMALS: Equal, round and reactive pupils present, EOMs intact bilaterally, conjunctivae normal and no scleral icterus CONJUNCTIVA: Yes conjunctivae normal PUPIL: Yes Equal, round and reactive pupils present Neck/C-Spine: COMMON NORMALS: full ROM, no lymphadenopathy and no JVD Chest: COMMONS NORMALS: normal inspection of the chest Resp: COMMON NORMALS: normal respiratory effort and clear to auscultation bilaterally AUSCULTATION: clear to auscultation bilaterally OTHER: No wheezes or crcakles Cardio: COMMON NORMALS: no JVD, regular rate, regular rhythm, S1 normal heart sound present and S2 normal heart sound present RATE: regular rate RHYTHM: regular rhythm HEART SOUNDS: S1 normal heart sound present and S2 normal heart sound present GI: COMMON NORMALS: Normal to inspection, nondistended, normoactive bowel sounds present, Soft to palpation and non-tender PALPATION: Yes Soft to palpation OTHER: Somewhat distended, tenderness not appreciated, bowel sounds present Extremity: COMMON NORMALS: normal to inspection and no pedal edema N ARRATIVE EXTREMITY EXAM: Pedal edema++ Neuro: COMMON NORMALS: patient oriented x3 SENSORIUM/ORIENTATION: Yes alert OTHER: Awake, no gross focal deficits Urinary Catheter Management: Rodas: Cath Placed During This Visit: yes Reason for Continuing Indwelling Catheter: Accurate Measurement of Urinary Output in Critically Ill Patients Urinary Catheter Date of Insertion: 03/04/24 Data 03/12/24 07:24 03/12/24 07:24 Micro: Microbiology 03/10/24 20:37 Urine Culture - Preliminary Urine,Clean Catch Yeast species 03/10/24 20:33 Blood Culture - Preliminary Blood NEGATIVE TO DATE 03/10/24 20:28 Blood Culture - Preliminary Blood NEGATIVE TO DATE A&P Assessment and plan (1) Encephalopathy, hepatic: - Patient has improvement in her mental status. She is now awake, AAO x 3 -Ammonia levels trending down Continue lactulose to ensure 3 bowel movements daily -Continue rifaximin -Continue other supportive care -Abdomen is somewhat distended, CT abdomen showed cirrhotic liver, cholelithiasis, small amount of perihepatic ascites with diffuse body wall anasarca -She is on antibiotics-ceftriaxone (2) GI bleeding: -Hemoglobin -stable -Status post PRBC transfusion -No further episodes of GI bleeding - She is S/p EGD and colonoscopy -with finding of nonbleeding small esophageal varices, unremarkable colonoscopy. Without active bleed. Duodenal biopsy was obtained. -Continue Protonix. -Referral for follow-up with surgery for capsule endoscopy. (3) Acute lower limb ischemia: Status post stenting per Dr. Simeon Plavix currently resumed (4) Atrial fibrillation: - Xarelto currently held. Now in normal sinus rhythm Qualifiers: Atrial fibrillation type: paroxysmal Qualified Code(s): I48.0 - Paroxysmal atrial fibrillation (5) Stage 3b chronic kidney disease (CKD): #Robert superimposed on chronic kidney disease stage III -creatinine improved today -Avoid nephrotoxic medications -Continue sodium bicarb for metabolic acidosis -Nephrology following -Unclear etiology, hepatorenal syndrome is possible ., Clinically , she seems somewhat volume overloaded. She received IV Lasix yesterday after blood transfusion. will check BNP. -Give albumin -Patient has metabolic acidosis, she may need bicarb infusion -Nephrology consult (6) Cirrhosis: This has been reported as due to medications? She is working with liver specialist to get down to a transplant list. 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 -Patient is on ceftriaxone, fluconazole -Blood cultures ordered -Urine cultures growing yeast Plan # Volume overload -Give dose of 40mg IV Lasix today -Will also give albumin # Hypokalemia -Replace potassium - check magnesium Attestations 2 Medical Necessity Statement*: Continue inpatient admission for management of encephalopathy , acute kidney injury , liver cirrhosis Coding Level of Care Code Acute Code for [facility] Diagnoses Encephalopathy, hepatic K76.82 GI bleeding K92.2 Acute lower limb ischemia I99.8 Paroxysmal atrial fibrillation I48.0 Atrial fibrillation type: paroxysmal Stage 3b chronic kidney disease (CKD) N18.32 Other cirrhosis of liver K74.69 Hepatic cirrhosis type: other cirrhosis Thrombocytopenia D69.6 Diabetes mellitus E11.9 Diabetes mellitus type: type 2 Diabetes mellitus termite 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
[2024-03-12] MEDS: insulin lispro 100 unit/1 mL SUBCUT ×3 (13:03→23:07)
[2024-03-12 14:10] LABS: Magnesium 3.4 mg/dL (1.7-2.3)
[2024-03-12] MEDS: fluconazole premix 200 MG/100 ML PREMIX 100 MG IV (14:33)
[2024-03-12] MEDS: albumin 25 G/100 ML BAG 60 G IV (14:33)
[2024-03-12] MEDS: citric acid-sodium citrate 30 mL UDC 60 ML PO (14:34)
--- NOTE | 2024-03-12 16:48 | P.PN_ITS ---
Subjective 2 Subjective: awake , Medications: Reviewed: Yes Medication Review Details: denies any complaints Vitals/I&O/Wt Last Vital Signs Temp 97.5 F L 03/12/24 04:00 Pulse 60 03/12/24 16:39 Resp 20 H 03/12/24 16:00 BP 169/78 03/12/24 16:00 Pulse Ox 97 03/12/24 16:39 O2 Del Method Room Air 03/12/24 16:00 FiO2 24 03/12/24 16:39 03/12/24 03/12/24 03/12/24 06:59 14:59 22:59 Intake Total 1400 / 1400 200 / 1600 Output Total 750 / 1200 Balance -750 / -50 1400 / 1400 200 / 1600 Weight last 48 hrs Weight 111.13 kg Weight 110.767 kg Weight 111.13 kg Weight 111.5 kg Weight 115.5 kg Physical Exam 2 Narrative: Patient lethargic, no distress Urinary Catheter Management: Rodas: Cath Placed During This Visit: yes Reason for Continuing Indwelling Catheter: Accurate Measurement of Urinary Output in Critically Ill Patients Urinary Catheter Date of Insertion: 03/04/24 Data 03/12/24 07:24 03/12/24 07:24 Micro: Microbiology 03/10/24 20:37 Urine Culture - Preliminary Urine,Clean Catch Yeast species 03/10/24 20:33 Blood Culture - Preliminary Blood NEGATIVE TO DATE 03/10/24 20:28 Blood Culture - Preliminary Blood NEGATIVE TO DATE A&P Assessment and plan (1) Stage 3b chronic kidney disease (CKD): 1. 1 acute kidney injury acute on chronic kidney disease: Baseline creatinine in the 1.5-2 ra-nge, now has DAMARIS with a creatinine of 2.9 likely prerenal in the setting of severe anemia, poor p.o. intake. also received IV contrast on presentation - will add IV albumin, and IV lasix and DC IVFs -check urine electrolytes ,urine eosinophills , UA with + protein , + blood and + WBC - Continue to monitor renal function closely - No indication for dialysis 2. Metabolic acidosis : added bicitra 3. Liver cirrhosis , with portal HTN 4. Limb ischemia - s/p thrombectomy and stent Attestations 2 Medical Necessity Statement*: per medicne Coding Level of Care Code Acute Code for g Fwd Diagnoses Stage 3b chronic kidney disease (CKD) N18.32
[2024-03-12 17:37] LABS: Glucose Point of Care 267 mg/dL (70-110)
[2024-03-12] MEDS: cefTRIAXone 1,000 mg SDV 2000 MG IVP (17:54)
[2024-03-12] MEDS: RIFAXIMIN 550 MG 1 EACH NG-TUBE (17:55)
[2024-03-12] MEDS: insulin glargine 100 units/1 mL 40 UNIT SUBCUT (17:55)
[2024-03-12] MEDS: ALPRAZolam 0.5 mg Tablet 0.25 MG NG-TUBE (17:56)
--- NOTE | 2024-03-12 21:03 | P.PN_ITS ---
Subjective 2 Subjective: Patient is awake more ammonia level continues to go down into 50s now she started making pretty good stool. She was getting short of breath for which she was started on Lasix Medications: Reviewed: Yes Medication Review Details: denies any complaints Vitals/I&O/Wt Last Vital Signs Temp 97.5 F L 03/12/24 04:00 Pulse 61 03/12/24 18:00 Resp 18 03/12/24 18:00 BP 145/69 03/12/24 18:00 Pulse Ox 97 03/12/24 18:00 O2 Del Method Room Air 03/12/24 16:00 FiO2 24 03/12/24 16:39 03/12/24 03/12/24 03/12/24 06:59 14:59 22:59 Intake Total 1400 / 1400 200 / 1600 Output Total 750 / 1200 1700 / 1700 Balance -750 / -50 1400 / 1400 -1500 / -100 Weight last 48 hrs Weight 245 lb Weight 244 lb 3.2 oz Weight 245 lb Weight 245 lb 13.047 oz Physical Exam 2 Const: COMMON NORMALS: alert OTHER: GENERAL: Patient is alert, awake and oriented x3. HEART: Regular S1 and S2. No murmur, rub or gallop. LUNGS: Clear to auscultate bilaterally. CENTRAL NERVOUS SYSTEM: Grossly nonfocal. EXTREMITIES: Lower extremities with out edema bilaterally. Resp: COMMON NORMALS: clear to auscultation bilaterally AUSCULTATION: clear to auscultation bilaterally Neuro: SENSORIUM/ORIENTATION: Yes alert Urinary Catheter Management: Rodas: Cath Placed During This Visit: yes Reason for Continuing Indwelling Catheter: Accurate Measurement of Urinary Output in Critically Ill Patients Urinary Catheter Date of Insertion: 03/04/24 Data 03/12/24 07:24 03/12/24 07:24 Micro: Microbiology 03/10/24 20:37 Urine Culture - Preliminary Urine,Clean Catch Yeast species 03/10/24 20:33 Blood Culture - Preliminary Blood NEGATIVE TO DATE 03/10/24 20:28 Blood Culture - Preliminary Blood NEGATIVE TO DATE A&P Assessment and plan (1) Encephalopathy, hepatic: It has improved, continue lactulose (2) Acute lower limb ischemia: Continue Plavix her leg continues to look better with good pulses (3) Hypertension: Elevated, use hydralazine as needed basis (4) Atrial fibrillation: She has been in sinus rhythm so far. Hold Xarelto due to GI bleed. Qualifiers: Atrial fibrillation type: paroxysmal Qualified Code(s): I48.0 - Paroxysmal atrial fibrillation (5) CAD (coronary artery disease): No symptoms of coronary ischemia. Qualifiers: Coronary Disease-Associated Artery/Lesion type: [place] artery [place] vs. transplanted heart: [place] heart Associated angina: without angina Qualified Code(s): I25.10 - Atherosclerotic heart disease of [place] coronary artery without angina pectoris (6) Acute blood loss anemia (ABLA): Patient is status post Blood cell (7) Cirrhosis: Qualifiers: Hepatic cirrhosis type: other cirrhosis Qualified Code(s): K74.69 - Other cirrhosis of liver (8) Suspected UTI: Continue antibiotics (9) CKD (chronic kidney disease): Patient appeared to be not volume overloaded Lasix was started can use BiPAP (10) CHF (congestive heart failure): Continue continue Lasix, patient had good urine output after that she is breathing better Attestations 2 Medical Necessity Statement*: require continuation hospitalization for above defined careRequire continuation of hospitalization for above defined care. Coding Level of Care Code Acute Code for [facility] Fwd Diagnoses Encephalopathy, hepatic K76.82 Acute lower limb ischemia I99.8 Hypertension I10 Paroxysmal atrial fibrillation I48.0 Atrial fibrillation type: paroxysmal Coronary artery disease involving [place] coronary artery of [place] heart without angina pectoris I25.10 Coronary Disease-Associated Artery/Lesion type: [place] artery [place] vs. transplanted heart: [place] heart Associated angina: without angina Acute blood loss anemia (ABLA) D62 Other cirrhosis of liver K74.69 Hepatic cirrhosis type: other cirrhosis Suspected UTI R39.89 CKD (chronic kidney disease) N18.9 CHF (congestive heart failure) I50.9
[2024-03-12 21:13] LABS: Albumin Level 3.3 g/dL (3.5-5.2); Anion Gap 18.6 (5-19); Blood Urea Nitrogen 49 mg/dL (8-23); Calcium 7.9 mg/dL (8.5-10.5); Carbon Dioxide 15 mmol/L (22-29); Chloride 107 mmol/L (98-107); Creatinine Clr Calc Pharmacy 37.7929; Glomerular Filtration Rate 25.4 mL/min (90-130); Glucose 236 mg/dL (65-115); Phosphorus 3.8 mg/dL (2.5-4.5); Sodium 138 mmol/L (136-145)
[2024-03-12 21:17] LABS: Potassium 2.6 mmol/L (3.5-5.1)
[2024-03-12] MEDS: potassium chloride ER 20 mEq Tablet PO ×2 (21:28→23:01)
[2024-03-12] MEDS: lidocaine 1% 5 ML in potassium chloride premix 100 ML 26.25 ML IV (22:35)
[2024-03-12] MEDS: albumin 25 G/100 ML BAG 65 G IV (22:49)
[2024-03-12] MEDS: temazepam 15 mg Capsule NG-TUBE (22:56)
[2024-03-12 23:05] LABS: Glucose Point of Care 192 mg/dL (70-110)
[2024-03-13] VITALS (25 sets, daily range): BP systolic 114–143; BP diastolic 60–86; PULSE 60–67; RESP 15–23; O2SAT 90–95
--- NOTE | 2024-03-13 01:27 | PC.NURSE ---
Patient has potassium level of 2.6. Hospitalist notified and requested lasix be held at this time and wait until after the morning labs are re evaluated.
[2024-03-13 01:41] LABS: Glucose Point of Care 137 mg/dL (70-110)
[2024-03-13 04:25] LABS: Glucose Point of Care 102 mg/dL (70-110)
[2024-03-13] MEDS: potassium chloride ER 20 mEq Tablet PO (04:53)
[2024-03-13 05:13] LABS: Basophils % 0.2 %; Eosinophils # 0.1 10^3/uL (0.0-0.8); Hematocrit 25.8 % (36-47); Lymphocytes # 0.5 10^3/uL (0.8-4.8); Mean Corpuscular HGB Conc 31.8 g/dL (30-55); Mean Corpuscular Hemoglobin 27.7 pg (27-33); Mean Corpuscular Volume 87.2 fl (85-98); Mean Platelet Volume 10.8 fL (7.4-10.4); Monocytes # 0.9 10^3/uL (0.2-0.9); Monocytes % 8.5 %; Neutrophils # 9.03 10^3/uL (1.8-7.7); Neutrophils % 84.7 %; Nucleated Red Blood Cells % 0 %; Platelet Count 104 10^3/cmm (157-399); Red Blood Count 2.96 10^6/uL (3.85-5.65); Red Cell Distribution Width 18.4 % (12.1-15.1); White Blood Count 10.65 10^3/uL (3.29-11.43)
[2024-03-13] MEDS: albumin 25 G/100 ML BAG 60 G IV ×3 (05:41→21:46)
[2024-03-13] MEDS: morphine 4 mg/mL SDV 1 mL 2 MG IVP (05:42)
[2024-03-13 05:45] LABS: Alanine Aminotransferase 33 U/L (0-33); Albumin Level 3.4 g/dL (3.5-5.2); Alkaline Phosphatase 179 U/L (35-105); Aspartate Amino Transferase 78 U/L (0-32); Blood Urea Nitrogen 46 mg/dL (8-23); Calcium 7.9 mg/dL (8.5-10.5); Carbon Dioxide 16 mmol/L (22-29); Chloride 109 mmol/L (98-107); Globulin 3.2 g/dL (1.3-4.6); Glucose 104 mg/dL (65-115); Osmolality Calculated 302 mOsm/kg (285-295); Sodium 140 mmol/L (136-145); Total Bilirubin 0.9 mg/dL (0.15-1.2); Total Protein 6.6 g/dL (6.6-8.7)
--- NOTE | 2024-03-13 06:02 | PC.NURSE ---
Patient has potassium of 3.0 during this time. Hospitalist requested to retime lasix for 0800. Also ordered another 40 meq of potassium.
[2024-03-13] MEDS: sucralfate 1 gm/10 mL Oral Liq UDC PO ×2 (06:54→15:19)
[2024-03-13 07:38] LABS: Glucose Point of Care 79 mg/dL (70-110)
[2024-03-13] MEDS: pantoprazole 40 mg SDV IVP ×2 (08:25→17:34)
[2024-03-13] MEDS: amlodipine 10 mg Tablet NG-TUBE (08:25)
[2024-03-13] MEDS: potassium chloride ER 20 mEq Tablet 40 MEQ PO ×2 (08:25→11:35)
[2024-03-13] MEDS: sodium bicarbonate 650 mg Tablet NG-TUBE ×3 (08:25→20:14)
[2024-03-13] MEDS: FUROsemide 10 mg/mL SDV 4mL 40 MG IVP ×3 (08:25→20:11)
[2024-03-13] MEDS: propranolol 20 mg Tablet NG-TUBE ×2 (08:27→17:34)
[2024-03-13] MEDS: clopidogrel 75 mg Tablet NG-TUBE (08:27)
[2024-03-13] MEDS: insulin glargine 100 units/1 mL 40 UNIT SUBCUT ×2 (08:27→17:34)
[2024-03-13] MEDS: lactulose oral liq 20 gm/30 mL UDC 40 GM NG-TUBE (08:28)
[2024-03-13] MEDS: RIFAXIMIN 550 MG 1 EACH NG-TUBE ×2 (08:29→17:35)
--- NOTE | 2024-03-13 09:43 | PM.PN ---
Subjective Subjective: Patient is in the process of getting out of bed with nursing upon entering the room. States that she does feel a little bit better. She has some bedsores that are somewhat painful. Nursing reports that she had 6 bowel movements overnight. Medications: Reviewed: Yes Vitals/I&O/Wt Last Vital Signs Temp 97.5 F L 03/12/24 04:00 Pulse 60 03/13/24 09:00 Resp 17 03/13/24 09:00 BP 143/70 03/13/24 09:00 Pulse Ox 93 03/13/24 09:00 O2 Del Method Room Air 03/12/24 16:00 FiO2 24 03/12/24 16:39 03/12/24 03/13/24 03/13/24 22:59 06:59 14:59 Intake Total 440 / 1840 580 / 2420 Output Total 1700 / 1700 1500 / 3200 Balance -1260 / 140 -920 / -780 Weight last 48 hrs Weight 342 lb 13.101 oz Weight 245 lb Weight 244 lb 3.2 oz Weight 245 lb Physical Exam Narrative: General: Cooperative patient in no apparent distress. Well developed. HEENT: Normocephalic, Atraumatic. External ears normal. Nasal passages patent without drainage. Mucous membranes are slightly dry. Heart: RRR. Resp: LCTA. No respiratory distress, no use of accessory muscles. Abd: Abdomen is firm, slightly distended, nontender. Extremities: 2+ lower extremity edema. Skin: No rash or lesions on exposed areas. Urinary Catheter Management: Rodas: Cath Placed During This Visit: yes Reason for Continuing Indwelling Catheter: Accurate Measurement of Urinary Output in Critically Ill Patients Urinary Catheter Date of Insertion: 03/04/24 Data 03/13/24 04:22 03/13/24 04:22 Micro: Microbiology 03/10/24 20:37 Urine Culture - Preliminary Urine,Clean Catch Yeast species A&P Assessment and plan (1) Encephalopathy, hepatic: (2) GI bleeding: (3) Acute lower limb ischemia: (4) Atrial fibrillation: Qualifiers: Atrial fibrillation type: paroxysmal Qualified Code(s): I48.0 - Paroxysmal atrial fibrillation (5) Stage 3b chronic kidney disease (CKD): (6) Cirrhosis: Qualifiers: Hepatic cirrhosis type: other cirrhosis Qualified Code(s): K74.69 - Other cirrhosis of liver (7) Thrombocytopenia: (8) Diabetes mellitus: Qualifiers: Diabetes mellitus penitentiary insulin use: with penitentiary use Diabetes mellitus type: type 2 (9) Hypertension: (10) Suspected UTI: Plan 58 yo F admitted for Enephalopathy, elevated ammonia level, anemia and UTI. Continue inpatient monitoring. Will transfer up to floor today. Currently alert and oriented. Ammonia level has normalized, currently at 39. Will decrease her lactulose to twice a day as nursing reports multiple bowel movements overnight. Urine cultures growing yeast species. Currently waiting on identification. Previous showed Mariaelena tropicalis. Continue fluconazole. Nephrology is consulted and they are following due to acute kidney injury. Blood pressure currently well-controlled and stable. Potassium was at 3.0 today. Will replace and recheck in the morning. A-fib is currently stable. Xarelto for VTE prophylaxis. Cardiology is following for acute limb ischemia. Hemoglobin is currently stable. Will recheck in the morning. Code Status: Full IVF: None DVT PPx: Currently holding GI PPx: Protonix ABx: Ceftriaxone, fluconazole Diet: GI soft diet Discharge plan: To be determined Attestations Medical Necessity Statement*: Will need continued inpatient monitoring and treatment for improving encephalopathy, acute kidney injury with hypokalemia, volume overload, acute blood loss anemia, labs and antibiotics. Coding Level of Care Code Acute Code for Chg Fwd Moderate MDM includes number and complexity of problems actively addressed during encounter, amount and/or complexity of data reviewed/ordered and described risk of complication, morbidity or mortality of management as documented Diagnoses Encephalopathy, hepatic K76.82 GI bleeding K92.2 Acute lower limb ischemia I99.8 Paroxysmal atrial fibrillation I48.0 Atrial fibrillation type: paroxysmal Stage 3b chronic kidney disease (CKD) N18.32 Other cirrhosis of liver K74.69 Hepatic cirrhosis type: other cirrhosis Thrombocytopenia D69.6 Diabetes mellitus E11.9 Diabetes mellitus penitentiary insulin use: with penitentiary use Diabetes mellitus type: type 2 Hypertension I10 Suspected UTI R39.89
--- NOTE | 2024-03-13 10:05 | PC.NURSE ---
Pt transferred to a chair this AM with a walker and two person assist. Patient was educated on the importance of doing ADL's by herself including feeding herself and cleaning her marva area. Patient was also educated on the importance of shifting body weight in her chair to prevent further skin break down. Patient acknowledged education.
--- NOTE | 2024-03-13 10:23 | P.PN_ITS ---
Subjective 2 Subjective: doing well Medications: Reviewed: Yes Vitals/I&O/Wt Last Vital Signs Temp 97.5 F L 03/12/24 04:00 Pulse 60 03/13/24 09:00 Resp 17 03/13/24 09:00 BP 143/70 03/13/24 09:00 Pulse Ox 93 03/13/24 09:00 O2 Del Method Room Air 03/12/24 16:00 FiO2 24 03/12/24 16:39 03/12/24 03/13/24 03/13/24 22:59 06:59 14:59 Intake Total 440 / 1840 580 / 2420 Output Total 1700 / 1700 1500 / 3200 Balance -1260 / 140 -920 / -780 Weight last 48 hrs Weight 155.5 kg Weight 111.13 kg Weight 110.767 kg Physical Exam 2 Narrative: Patient lethargic, no distress Urinary Catheter Management: Rodas: Cath Placed During This Visit: yes Reason for Continuing Indwelling Catheter: Accurate Measurement of Urinary Output in Critically Ill Patients Urinary Catheter Date of Insertion: 03/04/24 Data 03/13/24 04:22 03/13/24 04:22 Micro: Microbiology 03/10/24 20:37 Urine Culture - Preliminary Urine,Clean Catch Yeast species A&P Assessment and plan (1) Stage 3b chronic kidney disease (CKD): 1. 1 acute kidney injury acute on chronic kidney disease: Baseline creatinine in the 1.5-2 ra-nge, now has DAMARIS with a creatinine of 2.9 likely prerenal in the setting of severe anemia, poor p.o. intake. also received IV contrast on presentation - will add IV albumin, and IV lasix and DCD IVFs -check urine electrolytes ,urine eosinophills , UA with + protein , + blood and + WBC - Continue to monitor renal function closely - No indication for dialysis 2. Metabolic acidosis : added bicitra 3. Liver cirrhosis , with portal HTN 4. Limb ischemia - s/p thrombectomy and stent 5. Hypokalemia : replete Attestations 2 Medical Necessity Statement*: per mediicne team Coding Level of Care Code Acute Code for Chg Fwd Diagnoses Stage 3b chronic kidney disease (CKD) N18.32
[2024-03-13 10:32] LABS: Ammonia 39 umol/L (11-51)
[2024-03-13] MEDS: insulin lispro 100 unit/1 mL SUBCUT ×3 (11:35→20:18)
[2024-03-13 11:49] LABS: Glucose Point of Care 178 mg/dL (70-110)
[2024-03-13] MEDS: HYDROcodone-acetaminophen 5-325 mg Tablet 1 TAB NG-TUBE ×2 (12:53→20:14)
[2024-03-13] MEDS: fluconazole premix 200 MG/100 ML PREMIX 100 MG IV (12:53)
[2024-03-13 17:28] LABS: Glucose Point of Care 186 mg/dL (70-110)
[2024-03-13] MEDS: cefTRIAXone 1,000 mg SDV 2000 MG IVP (17:34)
--- NOTE | 2024-03-13 18:36 | PC.NURSE ---
IV in right AC area was redressed and assessed for patency. When inspecting site an open area was noted under where old vanguard was. Patient did not want IV taken out and a new one placed in new site. IV was cleaned and new vanguard was placed.
[2024-03-13 20:04] LABS: Glucose Point of Care 254 mg/dL (70-110)
[2024-03-13] MEDS: temazepam 15 mg Capsule PO (20:15)
--- NOTE | 2024-03-13 21:22 | P.PN_ITS ---
Subjective 2 Subjective: Continues to improve, less short of breath Medications: Reviewed: Yes Medication Review Details: denies any complaints Vitals/I&O/Wt Last Vital Signs Temp 97.5 F L 03/12/24 04:00 Pulse 60 03/13/24 20:00 Resp 21 H 03/13/24 20:00 BP 126/70 03/13/24 20:00 Pulse Ox 94 03/13/24 20:00 O2 Del Method Room Air 03/12/24 16:00 FiO2 24 03/12/24 16:39 03/13/24 03/13/24 03/13/24 06:59 14:59 22:59 Intake Total 580 / 2420 340 / 340 200 / 540 Output Total 1500 / 3200 1000 / 1000 Balance -920 / -780 340 / 340 -800 / -460 Weight last 48 hrs Weight 342 lb 13.101 oz Weight 245 lb Weight 244 lb 3.2 oz Physical Exam 2 Const: COMMON NORMALS: alert OTHER: GENERAL: Patient is alert, awake and oriented x3. HEART: Regular S1 and S2. No murmur, rub or gallop. LUNGS: Mild crackles overall clear CENTRAL NERVOUS SYSTEM: Grossly nonfocal. EXTREMITIES: Lower extremities with out edema bilaterally. Resp: COMMON NORMALS: clear to auscultation bilaterally AUSCULTATION: clear to auscultation bilaterally Neuro: SENSORIUM/ORIENTATION: Yes alert Urinary Catheter Management: Rodas: Cath Placed During This Visit: yes Reason for Continuing Indwelling Catheter: Accurate Measurement of Urinary Output in Critically Ill Patients Urinary Catheter Date of Insertion: 03/04/24 Data 03/13/24 04:22 03/13/24 04:22 A&P Assessment and plan (1) Encephalopathy, hepatic: Pretty much improved and normalized sitting and having lunch (2) Acute lower limb ischemia: Left leg continues to have good pulse continue current management continue Plavix (3) Hypertension: Continue current manage (4) Atrial fibrillation: Remains in sinus rhythm not on anticoagulation due to history of GI bleed. Qualifiers: Atrial fibrillation type: paroxysmal Qualified Code(s): I48.0 - Paroxysmal atrial fibrillation (5) CAD (coronary artery disease): No symptoms of coronary ischemia. Qualifiers: Coronary Disease-Associated Artery/Lesion type: [place] artery [place] vs. transplanted heart: [place] heart Associated angina: without angina Qualified Code(s): I25.10 - Atherosclerotic heart disease of [place] coronary artery without angina pectoris (6) Acute blood loss anemia (ABLA): Patient is status post Blood cell (7) Cirrhosis: Qualifiers: Hepatic cirrhosis type: other cirrhosis Qualified Code(s): K74.69 - Other cirrhosis of liver (8) Suspected UTI: Continue antibiotics (9) CKD (chronic kidney disease): Much better improved (10) CHF (congestive heart failure): Well compensated continue current management we will switch patient upon discharge to p.o. 40 mg of Lasix. Will hold Aldactone at the discharge since patient was hyperkalemic in the past, replenish potassium as per nephrology Attestations 2 Medical Necessity Statement*: Patient require continuation of hospitalization for above defined care Coding Level of Care Code Acute Code for [facility] Diagnoses Encephalopathy, hepatic K76.82 Acute lower limb ischemia I99.8 Hypertension I10 Paroxysmal atrial fibrillation I48.0 Atrial fibrillation type: paroxysmal Coronary artery disease involving [place] coronary artery of [place] heart without angina pectoris I25.10 Coronary Disease-Associated Artery/Lesion type: [place] artery [place] vs. transplanted heart: [place] heart Associated angina: without angina Acute blood loss anemia (ABLA) D62 Other cirrhosis of liver K74.69 Hepatic cirrhosis type: other cirrhosis Suspected UTI R39.89 CKD (chronic kidney disease) N18.9 CHF (congestive heart failure) I50.9
[2024-03-13] MEDS: lactulose oral liq 20 gm/30 mL UDC PO (21:46)
[2024-03-14] VITALS (15 sets, daily range): BP systolic 113–146; BP diastolic 48–78; PULSE 60–96; RESP 10–23; TEMP 35.8–37; O2SAT 91–94
[2024-03-14 00:43] LABS: Glucose Point of Care 156 mg/dL (70-110)
[2024-03-14 05:29] LABS: Ammonia 44 umol/L (11-51)
[2024-03-14 05:36] LABS: Basophils % 0.1 %; Eosinophils # 0.1 10^3/uL (0.0-0.8); Eosinophils % 1.8 %; Hematocrit 25.1 % (36-47); Lymphocytes # 0.6 10^3/uL (0.8-4.8); Lymphocytes % 7.7 %; Mean Corpuscular HGB Conc 30.7 g/dL (30-55); Mean Corpuscular Hemoglobin 27.1 pg (27-33); Mean Corpuscular Volume 88.4 fl (85-98); Monocytes # 0.7 10^3/uL (0.2-0.9); Monocytes % 9.3 %; Neutrophils # 5.73 10^3/uL (1.8-7.7); Neutrophils % 80.5 %; Nucleated Red Blood Cells % 0 %; Platelet Count 100 10^3/cmm (157-399); Red Blood Count 2.84 10^6/uL (3.85-5.65); Red Cell Distribution Width 18.5 % (12.1-15.1); White Blood Count 7.12 10^3/uL (3.29-11.43)
[2024-03-14 05:59] LABS: Alanine Aminotransferase 27 U/L (0-33); Albumin Level 3.8 g/dL (3.5-5.2); Alkaline Phosphatase 178 U/L (35-105); Anion Gap 18.5 (5-19); Aspartate Amino Transferase 60 U/L (0-32); Blood Urea Nitrogen 47 mg/dL (8-23); Calcium 8.2 mg/dL (8.5-10.5); Carbon Dioxide 17 mmol/L (22-29); Chloride 108 mmol/L (98-107); Creatinine Clr Calc Pharmacy 51.3043; Globulin 2.9 g/dL (1.3-4.6); Glomerular Filtration Rate 28.7 mL/min (90-130); Glucose 110 mg/dL (65-115); Magnesium 2.7 mg/dL (1.7-2.3); Osmolality Calculated 303 mOsm/kg (285-295); Phosphorus 3.5 mg/dL (2.5-4.5); Potassium 3.5 mmol/L (3.5-5.1); Sodium 140 mmol/L (136-145); Total Bilirubin 0.8 mg/dL (0.15-1.2); Total Protein 6.7 g/dL (6.6-8.7)
--- NOTE | 2024-03-14 06:19 | P.PN_ITS ---
Subjective 2 Subjective: no new complaints Medications: Reviewed: Yes Vitals/I&O/Wt Last Vital Signs Temp 97.5 F L 03/12/24 04:00 Pulse 60 03/14/24 04:00 Resp 20 H 03/14/24 04:00 BP 119/56 03/14/24 04:00 Pulse Ox 91 03/14/24 04:00 O2 Del Method Room Air 03/12/24 16:00 FiO2 24 03/12/24 16:39 03/13/24 03/13/24 03/14/24 14:59 22:59 06:59 Intake Total 340 / 340 400 / 740 100 / 840 Output Total 1000 / 1000 Balance 340 / 340 -600 / -260 100 / -160 Weight last 48 hrs Weight 155.5 kg Weight 111.13 kg Physical Exam 2 Narrative: awake , alert , No distress PEERLA S1S2 RRR per report Lungs clear per report no edema Urinary Catheter Management: Rodas: Cath Placed During This Visit: yes Reason for Continuing Indwelling Catheter: Accurate Measurement of Urinary Output in Critically Ill Patients Urinary Catheter Date of Insertion: 03/04/24 Data 03/14/24 05:00 03/14/24 05:00 A&P Assessment and plan (1) Stage 3b chronic kidney disease (CKD): 1. 1 acute kidney injury acute on chronic kidney disease: Baseline creatinine in the 1.5-2 ra-nge, now has DAMARIS with a creatinine of 2.9 likely prerenal in the setting of severe anemia, poor p.o. intake. also received IV contrast on presentation - s/p IV albumin, and IV lasix --> DC on Po lasix 20 mg BID - Renal fxn improved , arrange Nephrology follow up @ DC - Continue to monitor renal function closely 2. Metabolic acidosis : IMPROVED 3. Liver cirrhosis , with portal HTN 4. Limb ischemia - s/p thrombectomy and stent 5. Hypokalemia : repleted Attestations 2 Medical Necessity Statement*: per medicine Coding Level of Care Code Acute Code for Chg Fwd Diagnoses Stage 3b chronic kidney disease (CKD) N18.32
[2024-03-14] MEDS: albumin 25 G/100 ML BAG 60 G IV (06:26)
[2024-03-14] MEDS: sucralfate 1 gm/10 mL Oral Liq UDC PO (06:37)
[2024-03-14 06:42] LABS: Glucose Point of Care 94 mg/dL (70-110)
[2024-03-14] MEDS: amlodipine 10 mg Tablet NG-TUBE (08:58)
[2024-03-14] MEDS: ALPRAZolam 0.5 mg Tablet 0.25 MG NG-TUBE (08:58)
[2024-03-14] MEDS: sodium bicarbonate 650 mg Tablet NG-TUBE (08:58)
[2024-03-14] MEDS: pantoprazole 40 mg SDV IVP (08:58)
[2024-03-14] MEDS: propranolol 20 mg Tablet NG-TUBE (08:59)
[2024-03-14] MEDS: lactulose oral liq 20 gm/30 mL UDC PO (08:59)
[2024-03-14] MEDS: clopidogrel 75 mg Tablet NG-TUBE (08:59)
[2024-03-14] MEDS: insulin glargine 100 units/1 mL 40 UNIT SUBCUT (09:00)
[2024-03-14] MEDS: FUROsemide 10 mg/mL SDV 4mL 40 MG IVP (09:02)
[2024-03-14] MEDS: HYDROcodone-acetaminophen 5-325 mg Tablet 1 TAB NG-TUBE (10:03)
[2024-03-14 12:40] LABS: Glucose Point of Care 121 mg/dL (70-110)
--- NOTE | 2024-03-14 12:59 | P.PN_ITS ---
Subjective 2 Subjective: No acute vents overnight. Hospital course appreciated. Seen with at bedside. Patient lying comfortably in bed. Denies any nausea, vomiting, headache. States she is feeling better but tired. Reviewed that hemodynamically stable. Medications: Reviewed: Yes Medication Review Details: denies any complaints Vitals/I&O/Wt Last Vital Signs Temp 98.6 F 03/14/24 08:00 Pulse 60 03/14/24 07:00 Resp 20 H 03/14/24 07:00 BP 146/48 03/14/24 08:00 Pulse Ox 91 03/14/24 06:00 O2 Del Method Room Air 03/12/24 16:00 FiO2 24 03/12/24 16:39 03/13/24 03/14/24 03/14/24 22:59 06:59 14:59 Intake Total 400 / 740 100 / 840 100 / 100 Output Total 1000 / 1000 1600 / 2600 Balance -600 / -260 -1500 / -1760 100 / 100 Weight last 48 hrs Weight 155.129 kg Weight 155.5 kg Physical Exam 2 Narrative: General: No acute distress, AO x3, HEENT: PERRLA, pupils bilaterally equal and reactive Chest: Normal vesicular breath sounds, no added sounds, equal good air entry bilaterally CVS: S1-S2 regular, no murmurs, no tachycardia, no gallops, no rubs Abdomen: Soft, nontender, no organomegaly, bowel sounds present Neuro: No focal deficits, no facial deformity, Extremity: Bilateral lower limb Warm to touch, good capillary refill Urinary Catheter Management: Rodas: Cath Placed During This Visit: yes Reason for Continuing Indwelling Catheter: Accurate Measurement of Urinary Output in Critically Ill Patients Urinary Catheter Date of Insertion: 03/04/24 Data 03/14/24 05:00 03/14/24 05:00 A&P Assessment and plan (1) Encephalopathy, hepatic: (2) GI bleeding: (3) Acute lower limb ischemia: (4) Atrial fibrillation: Qualifiers: Atrial fibrillation type: paroxysmal Qualified Code(s): I48.0 - Paroxysmal atrial fibrillation (5) Stage 3b chronic kidney disease (CKD): (6) Cirrhosis: Qualifiers: Hepatic cirrhosis type: other cirrhosis Qualified Code(s): K74.69 - Other cirrhosis of liver (7) Thrombocytopenia: (8) Diabetes mellitus: Qualifiers: Diabetes mellitus type: type 2 Diabetes mellitus long-term insulin use: with long-term use (9) Hypertension: (10) Suspected UTI: Plan Plan for the day: Patient is AOx3. Has remained hemodynamically stable. Renal functions have remained stable. Hemoglobin has remained stable. EGD and colonoscopy earlier in the hospitalization negative for acute abnormality. Patient is medically stable to be discharged. Will discuss in detail with primary team. Patient will be medically discharged on Plavix. Will hold off on anticoagulation. Will request to hold off on ARB and Coreg for now. Can be discharged on amlodipine and propranolol. Goal blood pressure less than 140/90 mmHg. Advised to check blood pressure daily at home maintain a blood pressure diary and follow-up with a primary care provider within next 2 weeks for further adjustment of antihypertensive. Should follow-up with nephrology team as an outpatient. Should follow-up with outpatient health services administrator at the earliest. Should continue rifaximin and lactulose as before. Hold off on spironolactone for now. Should be discharged on Lasix 20 mg twice daily. With advised to check CBC and CMP in 1 week. Continue Protonix 20 mg twice daily and Carafate twice daily. Discharge plan discussed in detail with patient and spouse at bedside. All the questions were answered. Medical reconciliation completed. Care discussed in detail with primary team and nursing staff at bedside. Code Status: Full IVF: None DVT PPx: Currently holding GI PPx: Protonix ABx: Ceftriaxone, fluconazole Diet: GI soft diet Discharge plan: To be determined Attestations 2 Medical Necessity Statement*: As per primary team Diagnoses Encephalopathy, hepatic K76.82 GI bleeding K92.2 Acute lower limb ischemia I99.8 Paroxysmal atrial fibrillation I48.0 Atrial fibrillation type: paroxysmal Stage 3b chronic kidney disease (CKD) N18.32 Other cirrhosis of liver K74.69 Hepatic cirrhosis type: other cirrhosis Thrombocytopenia D69.6 Diabetes mellitus E11.9 Diabetes mellitus type: type 2 Diabetes mellitus [employer] insulin use: with long-term use Hypertension I10 Suspected UTI R39.89
--- NOTE | 2024-03-14 13:25 | PC.SOCIAL ---
IMM Update pg 2 of IMM updated and reviewed w/ patients . Copy provided and copy dated, initialed and placed in chart.
--- NOTE | 2024-03-14 15:06 | P.DS_ITS ---
Discharge Providers Date of Admission: 03/04/24 16:22 Date of Discharge: March 14, 2024 Attending Provider at Admission: Cooper Saleem MD Attending Provider at Discharge: Humphrey Noland MD Primary Care Provider: Jovan Sinegr MD Diagnoses at Discharge Discharge Diagnosis (1) Stage 3b chronic kidney disease (CKD): Status: Acute (2) CHF (congestive heart failure): Status: Acute (3) Acute blood loss anemia (ABLA): Status: Acute (4) DKA (diabetic ketoacidosis): Status: Acute (5) Ischemic leg: Status: Acute (6) Esophageal varices: Status: Acute (7) Essential hypertension: Status: Acute (8) CAD (coronary artery disease): Status: Acute Qualifiers: Coronary Disease-Associated Artery/Lesion type: [place] artery [place] vs. transplanted heart: [place] heart Associated angina: without angina Qualified Code(s): I25.10 - Atherosclerotic heart disease of [place] coronary artery without angina pectoris (9) Encephalopathy, hepatic: Status: Acute Reason for Visit Reason for Visit: left leg pain Hospital Course Hospital Course 58-year-old female past medical history significant for coronary artery disease history of CABG, CHF, liver cirrhosis with type I esophageal varices, history of hepatic and cephalopathy, diabetes mellitus, hypertension, chronic kidney disease, history of GI bleed presented with acute limb ischemia of the left leg. She was also noted to be in DKA with hyperkalemia, since patient had acute limb threatening ischemia she was immediately taken to the [facility] treated with thrombectomy balloon angioplasty and peripheral stent placement in the left common femoral artery. Excellent angiographic result with christian of flow was obtained, postop care was complicated with GI bleed DKA acute on chronic kidney failure congestive heart failure and hepatic encephalopathy. Over next few days patient was treated with the help of internal medicine, nephrology and surgical colleagues for encephalopathy DKA electrolyte imbalance she also underwent endoscopy colonoscopy transfused with blood for GI bleed. We have to stop anticoagulation and dual antiplatelet therapy, Plavix was restarted which she will be continuing for at least 1 month. Today she is feeling much better ammonia level has been normalized she is not in decompensated heart failure holding her hemoglobin, left lower extremity appeared to be well with good anterior posterior tibial pulse warm and moist. Today she is sitting and walking around without any much difficulty. At this point we will discharge patient. She will be following up in the clinic in 1 week with cardiology nurse practitioner. At the same time she is advised to follow-up with GI at [place] which were already consulted and spoken with during this admission, she has been advised to follow-up with her primary care physician Erick Oliva who is also her liver doctor in 1 week. I will discontinue Aldactone because of hyperkalemia of 6.8 and switch her to p.o. 40 mg of Lasix. Rest of medication will be as below. Physical Exam Const: OTHER: GENERAL: Patient is alert, awake and oriented x3. HEART: Regular S1 and S2. No murmur, rub or gallop. LUNGS: Clear to auscultate bilaterally. CENTRAL NERVOUS SYSTEM: Grossly nonfocal. EXTREMITIES: Lower extremities with out edema bilaterally. Left leg appeared to be warm moist anterior posterior pulses palpable Urinary Catheter Management: Rodas: Cath Placed During This Visit: yes Reason for Continuing Indwelling Catheter: Accurate Measurement of Urinary Output in Critically Ill Patients Urinary Catheter Date of Insertion: 03/04/24 Discharge Data Studies Completed and Pending Completed Studies During Hospitalization Category Date Time Status CT chest abdomen pelvis [[place] [id number] Cat Scan 03/11/24 10:44 Completed ] Routine CT head wo con* [id number] Routine Cat Scan 03/11/24 10:25 Completed XR chest 1V portable [id number] Routine Exams 03/10/24 18:39 Completed Pathology: Surgical [PTH] Routine Pth 03/09/24 11:54 [place] [id number] Stat Ultrasound 03/04/24 13:34 Completed CV. 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 ADDENDUM: 03/04/24 1418 THIS REPORT CONTAINS FINDINGS THAT MAY BE CRITICAL TO PATIENT CARE. The findings were verbally communicated via telephone conference with Dr. Pederson at 2:16 PM FRAMING CARPENTER on 03/04/2024. The findings were acknowledged and understood. Chest X-Ray 03/10/24 18:39 IMPRESSION: 1. There is an NG tube with its tip and side-port in the stomach. 2. No acute findings. Head CT 03/11/24 10:25 IMPRESSION: 1. No evidence of intracranial hemorrhage or mass effect. 2. No acute intracranial findings. Chest/Abdomen/Pelvis CT 03/11/24 10:44 IMPRESSION: 1. Cirrhotic configuration to the liver with evidence of portal venous hypertension. Upper abdominal varices. 2. Cholelithiasis. 3. Small amount of perihepatic ascites with diffuse body wall anasarca. 4. Rodas catheter. 5. Chronic spondylolysis L5-S1 with minimal anterolisthesis. 6. Suggestion of RIGHT ovarian low-attenuation cystic lesion measuring 5.1 x 3.5 cm. This can be followed up with ultrasound. 7. Prior hysterectomy. 8. No acute findings in the chest. Laboratory Results WBC 7.12 10^3/uL (3.29-11.43) 03/14/24 05:00 RBC 2.84 10^6/uL (3.85-5.65) L 03/14/24 05:00 Hgb 7.70 g/dL (11.27-16.99) L 03/14/24 05:00 Hct 25.1 % (36-47) L 03/14/24 05:00 MCV 88.4 fl (85-98) 03/14/24 05:00 MCH 27.1 pg (27-33) 03/14/24 05:00 MCHC 30.7 g/dL (30-55) 03/14/24 05:00 RDW 18.5 % (12.1-15.1) H 03/14/24 05:00 Plt Count 100 10^3/cmm (157-399) L 03/14/24 05:00 MPV 11.0 fL (7.4-10.4) H 03/14/24 05:00 Neut % (Auto) 80.5 % 03/14/24 05:00 Lymph % (Auto) 7.7 % 03/14/24 05:00 Mathews % (Auto) 9.3 % 03/14/24 05:00 Eos % (Auto) 1.8 % 03/14/24 05:00 Baso % (Auto) 0.1 % 03/14/24 05:00 Neut # (Auto) 5.73 10^3/uL (1.8-7.7) 03/14/24 05:00 Lymph # (Auto) 0.6 10^3/uL (0.8-4.8) L 03/14/24 05:00 Mathews # (Auto) 0.7 10^3/uL (0.2-0.9) 03/14/24 05:00 Eos # (Auto) 0.1 10^3/uL (0.0-0.8) 03/14/24 05:00 Baso # (Auto) 0.0 10^3/uL (0.0-0.1) 03/14/24 05:00 Nucleated RBC % (auto) 0 % 03/14/24 05:00 Nucleated RBCs # 0.0 /100WBC 03/14/24 05:00 APTT 34.3 SECONDS (23.9-36.7) 03/05/24 00:54 Specimen Type Arterial 03/11/24 17:47 Sample Site Radial, left 03/11/24 17:47 ABG pH 7.41 (7.35-7.45) 03/11/24 17:47 ABG pCO2 24.7 mmHg (35-45) L 03/11/24 17:47 ABG pO2 81.7 mmHg (80.0-100.0) 03/11/24 17:47 ABG PO2/FiO2 Ratio 389 03/11/24 17:47 ABG HCO3 15.7 mmol/L (22-26) L 03/11/24 17:47 ABG O2 Saturation 97.1 03/11/24 17:47 ABG Base Excess -7.8 mmol/L (-2.0-2.0) L 03/11/24 17:47 Mike Test N/a 03/11/24 17:47 A-a O2 Gradient 4.4 mmHg (5-10) L 03/11/24 17:47 Hematocrit 27.7 % (37-47) L 03/11/24 17:47 Hgb O2 Saturation 94.6 % (95-100) L 03/11/24 17:47 Carboxyhemoglobin 1.3 %THgb (0.4-20.1) 03/11/24 17:47 Methemoglobin 1.3 % (0.4-1.5) 03/11/24 17:47 Total Hemoglobin 9.0 g/dL (12-16) L 03/11/24 17:47 Sodium 140.0 mmol/L (131-143) 03/11/24 17:47 Potassium 3.3 mmol/L (3.5-5.0) L 03/11/24 17:47 Glucose 85.0 mg/dL (70-115) 03/11/24 17:47 Ionized Calcium 1.1 mmol/L (1.1-1.4) 03/11/24 17:47 O2 Delivery Device Room air 03/11/24 17:47 FiO2 21.0 % 03/11/24 17:47 Plastics Bench Mechanic ID [place] 03/11/24 17:47 Sodium 140 mmol/L (136-145) 03/14/24 05:00 Potassium 3.5 mmol/L (3.5-5.1) 03/14/24 05:00 Chloride 108 mmol/L (98-107) H 03/14/24 05:00 Carbon Dioxide 17 mmol/L (22-29) L 03/14/24 05:00 Anion Gap 18.5 (5-19) 03/14/24 05:00 BUN 47 mg/dL (8-23) H 03/14/24 05:00 Creatinine 1.8 mg/dL (0.5-0.9) H 03/14/24 05:00 GFR Calculation 28.7 mL/min (90-130) L 03/14/24 05:00 Glucose 110 mg/dL (65-115) 03/14/24 05:00 POC Glucose 121 mg/dL (70-110) H 03/14/24 12:37 Estimat Average Glucose 283 03/05/24 04:00 Hemoglobin A1c 11.5 % (4.0-6.0) H 03/05/24 04:00 Calculated Osmolality 303 mOsm/kg (285-295) H 03/14/24 05:00 Lactic Acid 2.9 mmol/L (0.5-2.2) H 03/04/24 18:09 Lactic Acid (Sepsis) 3.3 mmol/L (0.5-2.2) H 03/04/24 22:54 Lactate 2.3 mmol/L (0.5-2.2) H 03/11/24 04:15 Calcium 8.2 mg/dL (8.5-10.5) L 03/14/24 05:00 Phosphorus 3.5 mg/dL (2.5-4.5) 03/14/24 05:00 Magnesium 2.7 mg/dL (1.7-2.3) H 03/14/24 05:00 Iron 31 ug/dL (37-145) L 03/10/24 04:38 TIBC 250 mcg/dl 03/10/24 04:38 % Saturation 12.4 % (20-50) L 03/10/24 04:38 Unsat Iron Binding 219 ug/dL (112-347) 03/10/24 04:38 Ferritin 47 ng/mL (15-150) 03/10/24 04:38 Total Bilirubin 0.8 mg/dL (0.15-1.2) 03/14/24 05:00 AST 60 U/L (0-32) H 03/14/24 05:00 ALT 27 U/L (0-33) 03/14/24 05:00 Alkaline Phosphatase 178 U/L (35-105) H 03/14/24 05:00 Ammonia 44 umol/L (11-51) 03/14/24 04:54 Creatine Kinase 123 U/L (26-192) 03/04/24 18:09 NT-Pro-B Natriuret Pep 2953 pg/mL (0-125) H 03/11/24 04:15 Total Protein 6.7 g/dL (6.6-8.7) 03/14/24 05:00 Albumin 3.8 g/dL (3.5-5.2) 03/14/24 05:00 Globulin 2.9 g/dL (1.3-4.6) 03/14/24 05:00 Triglycerides 140 mg/dL (0-150) 03/05/24 04:00 Cholesterol 195 mg/dL (0-200) 03/05/24 04:00 LDL Cholesterol, Calc 130 mg/dL (50-129) H 03/05/24 04:00 HDL Cholesterol 37 mg/dL (60-100) L 03/05/24 04:00 LDL/HDL Ratio 3.51 RATIO (0.00-3.22) H 03/05/24 04:00 Cholesterol/HDL Ratio 5.27 mg/dL (0.0-4.40) H 03/05/24 04:00 Procalcitonin 2.12 ng/mL (0-0.5) H 03/05/24 04:00 TSH 1.26 uIU/mL (0.27-4.20) 03/04/24 18:09 Urine Color Yellow (Yellow) 03/10/24 20:37 Urine Appearance Turbid (CLEAR) A 03/10/24 20:37 Urine pH 5.5 (5-7) 03/10/24 20:37 Ur Specific [place] 1.017 (1.005-1.030) 03/10/24 20:37 Urine Protein 2+ (Negative) A 03/10/24 20: Urine Glucose (UA) Negative (Normal) 03/10/24: Urine Ketones Negative (Negative) 03/10/24 20: Urine Blood 3+ (Negative) A 03/10/24 20:37 Urine Nitrate Negative (Negative) 03/10/24: Urine Bilirubin Negative (Negative) 03/10/24 20:37 Urine Urobilinogen 0.2 mg/dL (Negative) 03/10/24 20:37 Ur Leukocyte Esterase 2+ (Negative) A 03/10/24 20:37 Urine RBC 6-10 /hpf (0-2) 03/10/24 20:37 Urine WBC >100 /hpf (0-5) H 03/10/24 20:37 Ur Squamous Epith Cells 5-10 /hpf (0-5) H 03/10/24 20:37 Calcium Oxalate Crystal 0-4 /hpf H 03/10/24 20:37 Amorphous Sediment Not Reportable 03/10/24 20:37 Urine Bacteria Trace /hpf (NONE) 03/10/24 20:37 Hyaline Casts Lathe Operator Contact Lens 03/10/24 20:37 Urine Yeast 4+ /hpf H 03/10/24 20:37 Nasal MRSA (PCR) Not detected (Not Detecte) 03/04/24 22:58 Serum Ketones Negative (Negative) 03/04/24 18:09 Influenza Type A Ag Negative (Negative) 03/10/24 20:37 Influenza Type B Ag Negative (Negative) 03/10/24 20:37 SARS-CoV-2 Ag (Rapid) negative (Negative) 03/10/24 20:37 Blood Type O Negative 03/10/24 06:35 Rho(D) Type Rh negative 03/10/24 06:35 Antibody Screen Negative 03/10/24 06:35 Crossmatch See Detail 03/10/24 06:35 Vitals Last Vital Signs Temp 98.6 F 03/14/24 14:10 Pulse 96 03/14/24 14:10 Resp 17 03/14/24 14:10 BP 113/78 03/14/24 14:10 Pulse Ox 94 03/14/24 14:10 O2 Del Method Room Air 03/12/24 16:00 FiO2 24 03/12/24 16:39 Discharge Plan Discharge Patient Disposition: Home Condition: Stable Prescriptions: New Xifaxan 550 mg tablet 550 mg PO BID Qty: 60 0RF sucralfate 100 mg/mL Suspension 1 g PO BIDAC 30 Days Qty: 300 0RF clopidogrel 75 mg Tablet 75 mg PO DAILY Qty: 30 0RF amlodipine 10 mg Tablet 10 mg PO DAILY Qty: 30 0RF propranolol 20 mg Tablet 20 mg PO BID 30 Days Qty: 60 0RF Continued ondansetron 8 mg tablet,disintegrating 8 mg PO Q8H PRN (Reason: nausea and vomiting) Qty: 10 0RF (DME) lancing device with lancets Kit See Rx Instructions .ROUTE .MEDSUPPLY Qty: 1 0RF Rx Instructions: As directed (DME) blood-glucose meter Kit See Rx Instructions .Route Qty: 1 11RF Rx Instructions: mauricio 14 with sensors and patches (DME) Blood Glucose Test Strip See Rx Instructions .ROUTE .MEDSUPPLY Qty: 100 6RF Rx Instructions: TEST UP TO 4 TIMES A DAY (DME) FreeStyle Mauricio 14 Day [place] Misc See Rx Instructions .Route Qty: 1 2RF Rx Instructions: As directed (DME) lancets 33 gauge misc See Rx Instructions .ROUTE .MEDSUPPLY Qty: 100 12RF Rx Instructions: test 4 times daily insulin glargine [Lantus Solostar U-100 Insulin] 100 unit/mL (3 mL) insulin pen 50 unit SUBCUT BID Qty: 30 4RF insulin lispro [Humalog KwikPen Insulin] 100 unit/mL insulin pen See Rx Instructions .ROUTE .COMPLEX Qty: 45 3RF Dose Instruction: INJECT using sliding scale THREE TIMES DAILY; max of 51 units DAILY Rx Instructions: INJECT using sliding scale THREE TIMES DAILY; max of 51 units DAILY (DME) FreeStyle Mauricio 14 Day Sensor Kit See Rx Instructions .ROUTE .COMPLEX Qty: 1 5RF Dose Instruction: USE directed Rx Instructions: USE directed lactulose [Constulose] 10 gram/15 mL solution See Rx Instructions .ROUTE .COMPLEX Qty: 946 3RF Dose Instruction: take 30g (45ml) BY MOUTH TWICE DAILY MAY titrate DOSE TO 3 TO 4 soft bowel movements/day Rx Instructions: take 30g (45ml) BY MOUTH THREE TO FOUR TIMES DAILY, MAY titrate DOSE TO 2 soft bowel movements/day (DME) pen needle, diabetic [BD Ultra-Fine Short Pen Needle] 31 gauge x 5/16 needle See Rx Instructions .ROUTE .COMPLEX Qty: 100 3RF Dose Instruction: USE DIRECTED Rx Instructions: USE DIRECTED morphine 30 mg tablet extended release 30 mg PO Q12H PRN (Reason: Pain) 30 Days Qty: 60 0RF naloxone 4 mg/actuation spray,non-aerosol See Rx Instructions .ROUTE .COMPLEX Rx Instructions: USE 1 SPRAY IN 1 NOSTRIL ALTERNATING NOSTRILS IF NO RESULTS IN 3 MINUTES. nitroglycerin 0.4 mg tablet, sublingual See Rx Instructions .ROUTE .COMPLEX PRN (Reason: Chest Pain) Rx Instructions: DISSOLVE 1 TABLET UNDER TONGUE MAY REPEAT EVERY 5 MINUTES FOR A TOTAL OF 3 TABLETS NEEDED FOR CHEST PAIN Jardiance 10 mg tablet 10 mg PO QAM Xifaxan 550 mg tablet 550 mg PO BID Qty: 60 0RF Changed pantoprazole 40 mg tablet,delayed release (DR/EC) 40 mg PO BID Qty: 90 0RF furosemide [Lasix] 20 mg tablet 20 mg PO BID Qty: 30 0RF Held irbesartan 75 mg tablet 75 mg PO DAILY Hold Instructions: Resume on 03/28/24. Discontinued spironolactone 50 mg tablet 50 mg PO DAILY Qty: 90 2RF carvedilol 3.125 mg tablet 3.125 mg PO BID Discharge Orders: Discharge Order (Routine); Ordered 03/14/24 Ordered By: Humphrey Noland Referrals: Jovan Singer MD [Primary Care Provider] - 03/23/24 10:45 am () Discharge Diet: Diabetic Patient Instructions: Propranolol (By mouth) (Inderal LA, Inderal XL, InnoPran XL, Hemangeol), Sucralfate (By mouth), Amlodipine (By mouth), Clopidogrel (By mouth), Rifaximin (By mouth), Heart Failure (DC), Urinary Tract Infection in Women (DC), Chronic Kidney Disease (DC), Peripheral Vascular Stent Placement (DC), Hepatic Encephalopathy (DC), Peripheral Vascular Angioplasty (DC), GI Post Discharge Instructions w/ Anesthesia, Opioid Safety Activity Restrictions/Additional Instructions: Repeat CBC and CMP in 1 week and follow up with your PCP. Your antihypertensives have been adjusted for now. Do not take Coreg or spironolactone, losartan for now. Instead take propranolol 3 times a day along with amlodipine 10 mg oral daily. Goal blood pressures less than 140/90 mmHg. Please check your blood pressure daily at home maintain blood pressure and follow-up with a primary care provider within next 1 week for further adjustment of medications. Take Protonix and Carafate twice daily for now. Patient's Health Concerns: Advised to follow-up with cardiology clinic in 1 week with cardiology nurse practitioner and with Dr. Noland in 1 month. Advised to follow-up with primary care physician and [address] Oliva, advised to follow-up with nephrology as an outpatient. Discharge Attestations Time Spent in Discharge Care*: greater than 30 min Status at Discharge: Cognitive status at discharge: cognitively intact , Behavioral status at discharge: cooperative , Quality Metrics Clinical Quality Measures [ No reported AMI, CVA or VTE this stay] Coding Level of Care Code Acute Code for Chg Fwd Diagnoses Stage 3b chronic kidney disease (CKD) N18.32 CHF (congestive heart failure) I50.9 Acute blood loss anemia (ABLA) D62 DKA (diabetic ketoacidosis) E11.10 Ischemic leg I99.8 Esophageal varices I85.00 Essential hypertension I10 Coronary artery disease involving [place] coronary artery of [place] heart without angina pectoris I25.10 Coronary Disease-Associated Artery/Lesion type: [place] artery [place] vs. transplanted heart: [place] heart Associated angina: without angina Encephalopathy, hepatic K76.82
== END 2024-03-14 15:45 | disposition home or self-care (01) | DRG 270 ==
LOC: ER 14:02 → CCL 14:38 → ICU 16:22 → CSU 03-06 13:00 → ICU 03-10 19:33
PROVIDERS: Family Medicine; Internal Medicine; Student in an Organized Health Care Education/Training Program; Surgery; Admitting Provider Student in an Organized Health Care Education/Training Program; Emergency Provider Emergency Medicine; PCP Family Medicine; Visit Provider Internal Medicine Cardiovascular Disease
PROC: X2CT3T7 Extirpation of Matter from Left Lower Extremity Artery using Computer-aided Mechanical Aspiration, Percutaneous Approach, New Technology Group 7 (ICD-10-PCS; principal; 2024-03-04 15:00)
PROC: X2CT3T7 Extirpation of Matter from Left Lower Extremity Artery using Computer-aided Mechanical Aspiration, Percutaneous Approach, New Technology Group 7 (ICD-10-PCS; 2024-03-04 15:00)
PROC: 0DJ08ZZ Inspection of Upper Intestinal Tract, Via Natural or Artificial Opening Endoscopic (ICD-10-PCS; principal; 2024-03-09 10:15)
PROC: 0DJD8ZZ Inspection of Lower Intestinal Tract, Via Natural or Artificial Opening Endoscopic (ICD-10-PCS; CPT 45378; 2024-03-09 10:15)
DX: E11.51 Type 2 diabetes mellitus with diabetic peripheral angiopathy without gangrene (principal); K29.71 Gastritis, unspecified, with bleeding; D62 Acute posthemorrhagic anemia; I13.0 Hypertensive heart and chronic kidney disease with heart failure and stage 1 through stage 4 chronic kidney disease, or unspecified chronic kidney disease; I50.32 Chronic diastolic (congestive) heart failure; I85.10 Secondary esophageal varices without bleeding; N39.0 Urinary tract infection, site not specified; E87.1 Hypo-osmolality and hyponatremia; E87.20 Acidosis, unspecified; K76.6 Portal hypertension; N17.9 Acute kidney failure, unspecified; I70.222 Atherosclerosis of native arteries of extremities with rest pain, left leg; E11.22 Type 2 diabetes mellitus with diabetic chronic kidney disease; N18.32 Chronic kidney disease, stage 3b; E11.10 Type 2 diabetes mellitus with ketoacidosis without coma; K74.60 Unspecified cirrhosis of liver; I25.10 Atherosclerotic heart disease of native coronary artery without angina pectoris; Z95.1 Presence of aortocoronary bypass graft; K76.82 Hepatic encephalopathy; Z87.891 Personal history of nicotine dependence; N83.201 Unspecified ovarian cyst, right side; R13.10 Dysphagia, unspecified; D50.0 Iron deficiency anemia secondary to blood loss (chronic); I48.0 Paroxysmal atrial fibrillation; K75.81 Nonalcoholic steatohepatitis (NASH); Z79.891 Long term (current) use of opiate analgesic; G89.29 Other chronic pain; Z95.0 Presence of cardiac pacemaker; D69.6 Thrombocytopenia, unspecified; E11.40 Type 2 diabetes mellitus with diabetic neuropathy, unspecified; Z79.4 Long term (current) use of insulin; Z79.02 Long term (current) use of antithrombotics/antiplatelets; E87.5 Hyperkalemia
CPT/HCPCS: 36415; 36416; 36430; 36600; 37184; 37226; 37228; 43239; 45378; 51702; 70450; 71045; 71250; 74176; 75625; 75716; 80048; 80051; 80053; 80061; 80069; 81001; 82009; 82140; 82330; 82550; 82728; 82805; 82962; 83036; 83540; 83550; 83605; 83735; 83880; 84100; 84145; 84443; 85014; 85018; 85025; 85347; 85730; 86850; 86900; 86920; 87040; 87086; 87106; 87426; 87804; 88305; 93005; 93306; 93926; 93971; 94660; 94664; 96365; 96366; 96372; 96374; 96375; 96376; 99152; 99153; 99285; C1725; C1769; C1876; C1887; C1894; J0360; J0612; J0696; J1171; J1450; J1610; J1644; J1815; J1940; J2250; J2270; J2405; J2470; J2543; J2704; J3010; J3480; J3490; J7030; J7040; J7042; J7799; P9016; P9045; P9046; P9047; Q3014; Q9967